=== PATIENT | female | born 1955 | race Caucasian/White ===

== ENCOUNTER 2016-04-05 23:23 | Emergency (ER) | payer OTHER ==
--- NOTE | 2016-04-06 00:57 | ED ---
Wound/Laceration HPI - General Chief Complaint: Wound/Laceration Stated Complaint: Foot Pain Time Seen by Provider: 04/06/16 00:19 Source: patient, RN notes reviewed Mode of arrival: ambulatory Limitations: no limitations - History of Present Illness Initial Comments: Patient is a 60-year-old female since emergency room for evaluation of left foot swelling. Patient states that her son was putting lotion on her feet and noticed some swelling on the lateral portion of her left foot. Patient states she has a history diabetes. Patient states she's had a history of many infections. Patient states she wanted this evaluated just in case. Patient denies any pain. Patient states she is diabetic neuropathy and does not feel any of her feet. Patient denies stepping on anything or injuring her foot. Patient denies any drainage from the area. Patient has any fevers or chills. Patient denies headache or dizziness. Patient denies nausea or vomiting. - Related Data Home Medications Medication Instructions Recorded Confirmed Albuterol Inhaler [Ventolin Hfa 2 puff INHALATION RT-Q4H PRN 02/18/14 02/14/16 Inhaler] Cyclobenzaprine [Flexeril] 10 mg PO BID@1000,2100 02/18/14 02/14/16 Simvastatin [Zocor] 40 mg PO HS@2100 02/18/14 02/14/16 metFORMIN HCL [Glucophage] 850 mg PO BID@1000,2100 02/18/14 02/14/16 Insulin Glargine [Lantus] 100 unit SQ DAILY@1000 07/12/14 02/14/16 Cetirizine HCl 10 mg PO DAILY@1000 10/25/14 02/14/16 Ibuprofen [Motrin] 800 mg PO Q8HR@1000,1400,2100 PRN 10/25/14 02/14/16 HYDROcodone/APAP 10-325MG [[place] 1 tab PO Q8H PRN 06/18/15 02/14/16 10-325] INSULIN LISPRO (humaLOG) [humaLOG 25 unit SQ TID-W/MEALS 06/18/15 02/14/16 (formulary)] Pregabalin [Lyrica] 150 mg PO BID 06/19/15 02/14/16 Albuterol Sulfate 2.5 mg PO RT-TID 12/14/15 02/14/16 Aspirin [Aspirin EC] 81 mg PO DAILY 12/14/15 02/14/16 Insulin Glargine [Lantus] 70 unit SQ HS 12/14/15 02/14/16 Latanoprost Ophth [Xalatan 0.005%] 1 drop BOTH EYES HS 12/14/15 02/14/16 Levothyroxine Sodium 75 mcg PO DAILY 12/14/15 02/14/16 Previous Rx's Medication Instructions Recorded Meclizine [Antivert] 25 mg PO TID #20 tab 12/22/15 Mupirocin 2% Oint [Bactroban 2% 1 applic TOPICAL TID 10 Days 04/06/16 Oint] Allergies Allergy/AdvReac Type Severity Reaction Status Date / Time Penicillins Allergy Anaphylaxis Verified 04/05/16 23:31 Review of Systems ROS Statement: Those systems with pertinent positive or pertinent negative responses have been documented in the HPI. ROS Other: All systems not noted in ROS Statement are negative. Past Medical History Past Medical History: Asthma, Cancer, COPD, Diabetes Mellitus, Hyperlipidemia, Osteoarthritis (OA), Sleep Apnea/CPAP/BIPAP Additional Past Medical History / Comment(s): Diabetic neuropathy, retinopathy. glaucoma,cevical cancer, sciatica. History of osteomyelitis with amputation of the third left toe and part of left calf: 2004. History of Any Multi-Drug Resistant Organisms: None Reported Past Surgical History: Section, Cholecystectomy, Hysterectomy, Tonsillectomy, Tubal Ligation Additional Past Surgical History / Comment(s): cataracts and laser surgery for glaucoma. Multiple I&D to wounds to the left foot and lower leg. Amputation of the third toe left. Past Anesthesia/Blood Transfusion Reactions: No Reported Reaction Past Psychological History: Bipolar, Depression Additional Psychological History / Comment(s): Borderline personality Smoking Status: Former smoker Past Alcohol Use History: None Reported Additional Past Alcohol Use History / Comment(s): Patient was a smoker of 2 packs per day for 21 years and quit in 1992. She does use marijuana on occasional basis. She denies any medical marijuana card. She denies any alcohol use or abuse. She is currently living at home and one adult son is living with her. She has been on disability. She is mostly wheelchair bound Past Drug Use History: Marijuana - Past Family History Father Family Medical History: Congestive Heart Failure (CHF), Coronary Artery Disease (CAD), Myocardial Infarction ([place]) Mother Family Medical History: Coronary Artery Disease (CAD), CVA/TIA, Dementia, Myocardial Infarction ([place]) General Exam - General Exam Comments Initial Comments: Sitting in exam room in no acute distress. Limitations: no limitations General appearance: alert, in no apparent distress Head exam: Present: atraumatic, normocephalic, normal inspection Eye exam: Present: normal appearance ENT exam: Present: normal exam Neck exam: Present: normal inspection Respiratory exam: Present: normal lung sounds bilaterally. Absent: respiratory distress Cardiovascular Exam: Present: regular rate, normal rhythm, normal heart sounds Left Foot/Toe exam: Present: full ROM. Absent: normal inspection (Small 1 cm swelling with tiny superficial liner abrasion on the lateral portion of the foot.), tenderness Neurovascular tendon exam: Absent: pulse deficit (2+ dorsal pedal and posterior tibial pulses), abnormal cap refill (Capillary refill less than 2 seconds) Back exam: Present: normal inspection Neurological exam: Present: alert, oriented X3, CN II-XII intact Psychiatric exam: Present: normal affect, normal mood Skin exam: Present: warm, dry Course Vital Signs 04/05/16 04/06/16 23:27 01:51 Temperature 97.0 F L 98.0 F Pulse Rate 94 78 Respiratory 18 16 Rate Blood Pressure 135/63 128/72 O2 Sat by Pulse 96 97 Oximetry Medical Decision Making - Medical Decision Making Patient is a 60-year-old female with a history of diabetes, presents to the emergency room for evaluation of abrasion over left foot. There was a slight amount of swelling near the abrasion area. Area was covered with Betadine and an 18-gauge was inserted. No purulent drainage noted. No significant erythema noted. Patient was placed on mupirocin ointment and advised to follow-up with primary care provider tomorrow. Patient states she understands everything that was discussed with her. Return parameters discussed. Case discussed with Dr. Shankar. Disposition Clinical Impression: Abrasion of left foot Disposition: HOME SELF-CARE Condition: Good Instructions: Abrasion (ED) Additional Instructions: Clean with antibacterial soap and water 3 times a day, apply ointment as directed. Please follow up with primary care provider in 24-48 hours for reevaluation. If any new symptom arises, symptoms worsen or fever develops, return to ER as soon as possible. Prescriptions: Mupirocin 2% Oint [Bactroban 2% Oint] 1 applic TOPICAL TID 10 Days Referrals: Lilibeth Seymour MD [Primary Care Provider] - 1-2 days Time of Disposition: 00:55
[2016-04-06] MEDS ORDERED: DIPH,PERTUS(ACELL)TETVAC-LF 0.5 ML VIAL IM ONE (01:01)
[2016-04-06 01:52] VITALS: BP 128/72; PULSE 78; RESP 16; TEMP 98
== END 2016-04-06 01:50 | disposition home or self-care (01) ==
LOC: EC 23:23
DX: S90.812A Abrasion, left foot, initial encounter (principal); E11.40 Type 2 diabetes mellitus with diabetic neuropathy, unspecified; E11.319 Type 2 diabetes mellitus with unspecified diabetic retinopathy without macular edema; E11.69 Type 2 diabetes mellitus with other specified complication; M86.9 Osteomyelitis, unspecified; E78.5 Hyperlipidemia, unspecified; H40.9 Unspecified glaucoma; G47.30 Sleep apnea, unspecified; F12.90 Cannabis use, unspecified, uncomplicated; X58.XXXA Exposure to other specified factors, initial encounter; Z23 Encounter for immunization; Z79.4 Long term (current) use of insulin; Z79.84 Long term (current) use of oral hypoglycemic drugs; Z79.899 Other long term (current) drug therapy; Z79.82 Long term (current) use of aspirin; Z88.0 Allergy status to penicillin; Z89.422 Acquired absence of other left toe(s); Z87.891 Personal history of nicotine dependence
CPT/HCPCS: 90471; 90715; 99282

== ENCOUNTER 2016-04-23 02:33 | Emergency (ER) | payer OTHER ==
--- NOTE | 2016-04-23 04:03 | ED ---
Skin/Abscess/FB HPI - General Chief complaint: Skin/Abscess/Foreign Body Stated complaint: Re-opened wound on heel of foot Time Seen by Provider: 04/23/16 03:48 Source: patient Mode of arrival: wheelchair Limitations: no limitations - History of Present Illness Initial comments: This patient is a 60-year-old woman with history of diabetes who presents to have her foot evaluated. She had been treated for a foot ulcer but states that he had not fully gone away and it may be getting a little worse now. Patient denies fever or chills. MD complaint: other (Foot ulcer) -: week(s) Tetanus Up to Date: yes Location: R foot Severity: mild Quality: dull Consistency: constant Improves with: none Worsens with: none Context: none Associated symptoms: denies other symptoms - Related Data Home Medications Medication Instructions Recorded Confirmed Albuterol Inhaler [Ventolin Hfa 1 puff INHALATION RT-QID PRN 02/18/14 07/20/16 Inhaler] Cyclobenzaprine [Flexeril] 10 mg PO BID@1000,209902/18/14 07/20/16 Simvastatin [Zocor] 40 mg PO HS@209902/18/14 07/20/16 metFORMIN HCL [Glucophage] 850 mg PO BID@1000,209902/18/14 07/20/16 Insulin Glargine [Lantus] 100 unit SQ DAILY@1000 07/12/14 07/20/16 Cetirizine HCl 10 mg PO DAILY@1000 10/25/14 07/20/16 HYDROcodone/APAP 10-325MG [[employer] 1 tab PO Q8H PRN 06/18/15 07/20/16 10-325] INSULIN LISPRO (humaLOG) [humaLOG 30 unit SQ TID-W/MEALS 06/18/15 07/20/16 (formulary)] Pregabalin [Lyrica] 150 mg PO BID 06/19/15 07/20/16 Albuterol Sulfate 2.5 mg INHALATION RT-QID 12/14/15 07/20/16 Insulin Glargine [Lantus] 80 unit SQ HS 12/14/15 07/20/16 Latanoprost Ophth [Xalatan 0.005%] 1 drop BOTH EYES HS 09/13/16 04/20/17 Levothyroxine Sodium 75 mcg PO DAILY 12/14/15 07/20/16 Aspirin EC [Ecotrin Low Dose] 81 mg PO DAILY 06/01/16 07/20/16 Nystatin 100,000 Unit/gm Powd 1 applic TOPICAL BID 06/01/16 07/20/16 [Mycostatin Powder] Ciprofloxacin Ophth Soln [Ciloxan 1 drop RIGHT EYE QID 07/13/16 07/20/16 0.3% Ophth Soln] Previous Rx's Medication Instructions Recorded Cephalexin [Keflex] 500 mg PO Q6HR #40 cap 07/02/16 Allergies Allergy/AdvReac Type Severity Reaction Status Date / Time Penicillins Allergy Anaphylaxis Verified 07/20/16 15:39 Review of Systems ROS Statement: Those systems with pertinent positive or pertinent negative responses have been documented in the HPI. ROS Other: All systems not noted in ROS Statement are negative. Constitutional: Denies: fever, chills, weakness Respiratory: Denies: cough, dyspnea Cardiovascular: Denies: chest pain, syncope Musculoskeletal: Denies: joint swelling, arthralgia Skin: Reports: as per HPI Neurological: Denies: weakness, numbness Past Medical History Past Medical History: Asthma, Cancer, COPD, Diabetes Mellitus, Hyperlipidemia, Osteoarthritis (OA), Sleep Apnea/CPAP/BIPAP Additional Past Medical History / Comment(s): Diabetic neuropathy, retinopathy. glaucoma,cevical cancer, sciatica. History of osteomyelitis with amputation of the third left toe and part of left calf: 2004. History of Any Multi-Drug Resistant Organisms: None Reported Past Surgical History: Section, Cholecystectomy, Hysterectomy, Tonsillectomy, Tubal Ligation Additional Past Surgical History / Comment(s): cataracts and laser surgery for glaucoma. Multiple I&D to wounds to the left foot and lower leg. Amputation of the third toe left. Past Anesthesia/Blood Transfusion Reactions: No Reported Reaction Past Psychological History: Bipolar, Depression Additional Psychological History / Comment(s): Borderline personality Smoking Status: Former smoker Past Alcohol Use History: None Reported Additional Past Alcohol Use History / Comment(s): Patient was a smoker of 2 packs per day for 21 years and quit in 1992. She does use marijuana on occasional basis. She denies any medical marijuana card. She denies any alcohol use or abuse. She is currently living at home and one adult son is living with her. She has been on disability. She is mostly wheelchair bound Past Drug Use History: Marijuana - Past Family History Father Family Medical History: Congestive Heart Failure (CHF), Coronary Artery Disease (CAD), Myocardial Infarction ([place]) Mother Family Medical History: Coronary Artery Disease (CAD), CVA/TIA, Dementia, Myocardial Infarction ([place]) General Exam Limitations: no limitations General appearance: alert, in no apparent distress, obese Cardiovascular Exam: Present: normal rhythm, normal heart sounds. Absent: tachycardia, systolic murmur, diastolic murmur, rubs, gallop Extremities exam: Present: normal capillary refill, other (The patient does have a fissure to the skin of the area of the heel. There is also what appears to be a recently unroofed vesicle on the side of the foot. There is a little bit of clear drainage, no purulent drainage. No abnormal erythema or warmth. No evidence of abscess. There is no bony tenderness or deformity of the foot). Absent: pedal edema, calf tenderness Skin exam: Present: warm, dry, normal color, vesicles. Absent: intact, rash, erythema Course Vital Signs 04/23/16 04/23/16 02:56 04:13 Temperature 98.2 F 98 F Pulse Rate 85 89 Respiratory 20 18 Rate Blood Pressure 144/74 143/67 O2 Sat by Pulse 97 97 Oximetry Medical Decision Making - Medical Decision Making Patient is a 60-year-old woman with history of diabetes who does have an ulceration of the foot there is also a fissure of the heel. There does not appear at this point to be infection, but given the patient's history of diabetes will provide course of antibiotics and close follow-up. Return parameters discussed. Disposition Clinical Impression: Fissure in skin of foot, Foot ulcer Disposition: HOME SELF-CARE Condition: Fair Instructions: Diabetic Foot Ulcers (ED) Referrals: Lilibeth Seymour MD [Primary Care Provider] - 1-2 days Paivthra Molina DPM [REFERRING] - 1-2 days
[2016-04-23 04:14] VITALS: BP 143/67; PULSE 89; RESP 18; TEMP 98
== END 2016-04-23 04:14 | disposition home or self-care (01) ==
LOC: EC 02:33
DX: L97.509 Non-pressure chronic ulcer of other part of unspecified foot with unspecified severity (principal); R23.4 Changes in skin texture; E11.40 Type 2 diabetes mellitus with diabetic neuropathy, unspecified; E11.319 Type 2 diabetes mellitus with unspecified diabetic retinopathy without macular edema; J44.9 Chronic obstructive pulmonary disease, unspecified; J45.909 Unspecified asthma, uncomplicated; E78.5 Hyperlipidemia, unspecified; Z79.82 Long term (current) use of aspirin; Z79.4 Long term (current) use of insulin; Z79.899 Other long term (current) drug therapy; Z88.0 Allergy status to penicillin; G47.30 Sleep apnea, unspecified; H40.9 Unspecified glaucoma; Z86.19 Personal history of other infectious and parasitic diseases; Z89.422 Acquired absence of other left toe(s); Z87.891 Personal history of nicotine dependence; Z99.3 Dependence on wheelchair; F32.9 Major depressive disorder, single episode, unspecified
CPT/HCPCS: 99282

== ENCOUNTER 2016-05-11 03:30 | Emergency (ER) | payer OTHER ==
[2016-05-11 03:42] VITALS: TEMP 98.6
[2016-05-11] MEDS ORDERED: SODIUM CHLORIDE 0.9% 500 ML IV STA (04:09)
--- NOTE | 2016-05-11 04:46 | ED ---
Nausea/Vomiting/Diarrhea HPI - General Chief complaint: Nausea/Vomiting/Diarrhea Stated complaint: Diarrhea Time Seen by Provider: 05/11/16 03:56 Source: patient, RN notes reviewed Mode of arrival: wheelchair Limitations: no limitations - History of Present Illness Initial comments: This patient is a 60-year-old woman who presents to be evaluated for having a number of watery stools per day. Patient states that she is taking clindamycin since last week for foot infection. She was instructed to come to the emergency department if she starts having diarrhea. She states she had soft bowel movements on Sunday and Sunday then started having watery bowel movements Sunday and Sunday. She has not noted any blood. Patient states that she is starting to feel like she may be getting dehydrated because her mouth is always dry. Patient denies chest pain, palpitations, lightheadedness. No change in urination. No vomiting. She does have a little bit of diffuse abdominal cramping just before having a bowel movement but then resolves. MD complaint: diarrhea Onset/Timin -: days(s) Description of Diarrhea: water Associated Abdominal Pain: Yes (There is some mild diffuse cramping which comes on just before bowel moveme) Severity: mild Quality: cramping Consistency: intermittent, now resolved Improves with: bowel movement Worsens with: none Context: recent antibiotic use - Related Data Home Medications Medication Instructions Recorded Confirmed Albuterol Inhaler [Ventolin Hfa 2 puff INHALATION RT-Q4H PRN 02/18/14 05/11/16 Inhaler] Cyclobenzaprine [Flexeril] 10 mg PO BID@1000,209902/18/14 05/11/16 Simvastatin [Zocor] 40 mg PO HS@209902/18/14 05/11/16 metFORMIN HCL [Glucophage] 850 mg PO BID@1000,209902/18/14 05/11/16 Insulin Glargine [Lantus] 100 unit SQ DAILY@1000 07/12/14 05/11/16 Cetirizine HCl 10 mg PO DAILY@1000 10/25/14 05/11/16 Ibuprofen [Motrin] 800 mg PO Q8HR@1000,1400,2100 PRN 10/25/14 05/11/16 HYDROcodone/APAP 10-325MG [Max 1 tab PO Q8H PRN 06/18/15 05/11/16 10-325] INSULIN LISPRO (humaLOG) [humaLOG 25 unit SQ TID-W/MEALS 06/18/15 05/11/16 (formulary)] Pregabalin [Lyrica] 150 mg PO BID 06/19/15 05/11/16 Albuterol Sulfate 2.5 mg INHALATION TID 12/14/15 05/11/16 Insulin Glargine [Lantus] 70 unit SQ HS 12/14/15 05/11/16 Latanoprost Ophth [Xalatan 0.005%] 1 drop BOTH EYES HS 12/14/15 05/11/16 Levothyroxine Sodium 75 mcg PO DAILY 12/14/15 05/11/16 Amino Acids/Protein Hydrolys 300 ml PO BID 05/04/16 05/11/16 [Pro-Stat Supplement] Clindamycin [Cleocin] 300 mg PO Q8HR 05/04/16 05/11/16 Previous Rx's Medication Instructions Recorded Meclizine [Antivert] 25 mg PO TID #20 tab 12/22/15 Mupirocin 2% Oint [Bactroban 2% 1 applic TOPICAL TID 10 Days 04/06/16 Oint] Allergies Allergy/AdvReac Type Severity Reaction Status Date / Time Penicillins Allergy Anaphylaxis Verified 05/04/16 10:03 Review of Systems ROS Statement: Those systems with pertinent positive or pertinent negative responses have been documented in the HPI. ROS Other: All systems not noted in ROS Statement are negative. Constitutional: Denies: fever, chills Respiratory: Denies: cough, dyspnea Cardiovascular: Denies: chest pain, palpitations Gastrointestinal: Reports: diarrhea. Denies: abdominal pain, vomiting, melena, hematochezia Genitourinary: Denies: dysuria Musculoskeletal: Denies: back pain Skin: Denies: rash Neurological: Denies: headache, weakness, numbness Past Medical History Past Medical History: Asthma, Cancer, COPD, Diabetes Mellitus, Eye Disorder, Hyperlipidemia, Musculoskeletal Disorder, Neurologic Disorder, Osteoarthritis ( OA), Sleep Apnea/CPAP/BIPAP, Thyroid Disorder Additional Past Medical History / Comment(s): History of osteomyelitis left #3 toe and left calf: 2004. History of Any Multi-Drug Resistant Organisms: None Reported Past Surgical History: Section, Cholecystectomy, Hysterectomy, Orthopedic Surgery, Tonsillectomy, Tubal Ligation Additional Past Surgical History / Comment(s): cataracts and laser surgery for glaucoma. Multiple I&D to left foot and lower leg. Past Anesthesia/Blood Transfusion Reactions: No Reported Reaction Past Psychological History: Bipolar, Depression Additional Psychological History / Comment(s): Borderline personality Smoking Status: Former smoker Past Alcohol Use History: None Reported Additional Past Alcohol Use History / Comment(s): Patient was a smoker of 2 packs per day for 21 years and quit in 1992. She does use marijuana on occasional basis. She denies any medical marijuana card. She denies any alcohol use or abuse. She is currently living at home and one adult son is living with her. She has been on disability. She is mostly wheelchair bound Past Drug Use History: Marijuana - Past Family History Father Family Medical History: Congestive Heart Failure (CHF), Coronary Artery Disease (CAD), Myocardial Infarction ([place]) Mother Family Medical History: Coronary Artery Disease (CAD), CVA/TIA, Dementia, Myocardial Infarction ([place]) General Exam Limitations: no limitations General appearance: alert, in no apparent distress, obese Head exam: Present: atraumatic, normocephalic Respiratory exam: Present: normal lung sounds bilaterally. Absent: respiratory distress, wheezes, rales, rhonchi, stridor Cardiovascular Exam: Present: regular rate, normal rhythm, normal heart sounds. Absent: systolic murmur, diastolic murmur, rubs, gallop GI/Abdominal exam: Present: soft. Absent: distended, tenderness, guarding, rebound Extremities exam: Present: normal capillary refill. Absent: pedal edema, calf tenderness Back exam: Absent: CVA tenderness (R), CVA tenderness (L) Neurological exam: Present: alert Skin exam: Present: warm, dry, intact, normal color. Absent: rash Course Vital Signs 05/11/16 05/11/16 03:38 05:36 Temperature 98.6 F Pulse Rate 85 78 Respiratory 18 16 Rate Blood Pressure 189/85 160/70 O2 Sat by Pulse 98 98 Oximetry Medical Decision Making - Medical Decision Making Patient not able to provide specimen here. Will follow with her physician. Discussed return parameters. - Lab Data Result diagrams: 05/11/16 04:37 05/11/16 04:37 Lab Results 02/09/17 02/09/17 Range/Units 04:37 04:37 WBC 9.1 (3.8-10.6) k/uL RBC 4.49 (3.80-5.40) m/uL Hgb 12.8 (11.4-16.0) gm/dL Hct 38.8 (34.0-46.0) % MCV 86.5 (80.0-100.0) fL MCH 28.5 (25.0-35.0) pg MCHC 33.0 (31.0-37.0) g/dL RDW 16.1 H (11.5-15.5) % Plt Count 89 L (150-450) k/uL Neutrophils % (Manual) 73.0 % Band Neutrophils % 5.0 % Lymphocytes % (Manual) 19.0 % Monocytes % (Manual) 1.0 % Eosinophils % (Manual) 2.0 % Neutrophils # (Manual) 7.1 (1.3-7.7) k/uL Lymphocytes # (Manual) 1.7 (1.0-4.8) k/uL Monocytes # (Manual) 0.1 (0-1.0) k/uL Eosinophils # (Manual) 0.2 (0-0.7) k/uL Nucleated RBCs 0 (0-0) /100 WBC Manual Slide Review Performed Poikilocytosis Slight Anisocytosis Slight Sodium 143 (137-145) mmol/L Potassium 4.0 (3.5-5.1) mmol/L Chloride 106 (98-107) mmol/L Carbon Dioxide 24 (22-30) mmol/L Anion Gap 13 mmol/L BUN 21 H (7-17) mg/dL Creatinine 0.70 (0.52-1.04) mg/dL Est GFR (MDRD) Af Amer >60 (>60 ml/min/1.73 sqM) Est GFR (MDRD) Non-Af >60 (>60 ml/min/1.73 sqM) Glucose 187 H (74-99) mg/dL Calcium 9.1 (8.4-10.2) mg/dL Disposition Clinical Impression: Diarrhea Disposition: HOME SELF-CARE Condition: Good Instructions: Acute Diarrhea (ED) Referrals: Lilibeth Syemour MD [Primary Care Provider] - 1-2 days
[2016-05-11 04:49] LABS: Anisocytosis Slight; CH 29.1; HCT 38.8 % (34.0-46.0); HDW 3.71; HGB 12.8 gm/dL (11.4-16.0); MCH 28.5 pg (25.0-35.0); MCV 86.5 fL (80.0-100.0); Mean Platelet Volume 8.7; Poikilocytosis Slight; RBC 4.49 m/uL (3.80-5.40); RDW 16.1 % (11.5-15.5); WBC 9.1 k/uL (3.8-10.6); WBC (Perox) 9.07
[2016-05-11 04:58] LABS: Anion Gap 13 mmol/L; Blood Urea Nitrogen 21 mg/dL (7-17); Calcium 9.1 mg/dL (8.4-10.2); Carbon Dioxide 24 mmol/L (22-30); Chloride 106 mmol/L (98-107); Glucose 187 mg/dL (74-99); Non-African American GFR(MDRD) >60 (>60 ml/min/1.73 sqM); Sodium 143 mmol/L (137-145)
[2016-05-11 05:23] LABS: Add Differential Manual Differential
[2016-05-11 05:26] LABS: Manual Review Performed; Nucleated Red Blood Cells 0 /100 WBC (0-0); Total Cells Counted 100
[2016-05-11 05:37] VITALS: BP 160/70; PULSE 78; RESP 16
== END 2016-05-11 05:44 | disposition home or self-care (01) ==
LOC: EC 03:30
DX: R19.7 Diarrhea, unspecified (principal); R10.84 Generalized abdominal pain; J44.9 Chronic obstructive pulmonary disease, unspecified; J45.909 Unspecified asthma, uncomplicated; E11.9 Type 2 diabetes mellitus without complications; E07.9 Disorder of thyroid, unspecified; E78.5 Hyperlipidemia, unspecified; M19.90 Unspecified osteoarthritis, unspecified site; G58.9 Mononeuropathy, unspecified; H57.9 Unspecified disorder of eye and adnexa; Z87.891 Personal history of nicotine dependence; Z79.4 Long term (current) use of insulin; Z79.52 Long term (current) use of systemic steroids; Z79.899 Other long term (current) drug therapy; Z88.0 Allergy status to penicillin; Z90.49 Acquired absence of other specified parts of digestive tract; Z90.710 Acquired absence of both cervix and uterus
CPT/HCPCS: 36415; 80048; 85025; 96360; 99284

== ENCOUNTER → 2016-05-19 | Outpatient (CLI) | payer OTHER ==
--- NOTE | 2016-05-19 13:25 | MR ---
EXAMINATION TYPE: MR foot LT wo/w con DATE OF EXAM: 05/19/2016 1:12 PM COMPARISON: Limited left foot x-ray April 27, 2016 HISTORY: osteomyelitis left foot per order. Diabetic foot ulcers lateral left foot fifth metatarsal l evel CONTRAST: Standard multiplanar, multisequence MRI departmental protocol utilizing 20 mL intravenous MultiHance gadolinium contrast. FINDINGS: Soft tissue ulcer not well seen along lateral aspect of left mid to forefoot. There is smal l area of edema along plantar lateral base of fifth metatarsal. Additional area of edema laterally at metatarsophalangeal junction extending along plantar surface is noted. There is some loss of fat sat uration on the coronal images making evaluation suboptimal. There is no convincing evidence of abnorm al edema or enhancement at this level or in remainder of the left foot. Amputation defect of left thi rd toe is noted. Flexion contraction of the phalanges is seen making evaluation of this level subopti mal including the distal fifth toe. IMPRESSION: No convincing MRI evidence for acute osteomyelitis in the left foot.
== END | disposition home or self-care (01) ==
LOC: RADMRIMAIN 11:23
PROVIDERS: ATTEND Family Medicine
DX: M86.8X7 Other osteomyelitis, ankle and foot (principal); E11.621 Type 2 diabetes mellitus with foot ulcer; L97.529 Non-pressure chronic ulcer of other part of left foot with unspecified severity
CPT/HCPCS: 73720; A9577

== ENCOUNTER → 2016-05-26 | Outpatient (CLI) | payer OTHER ==
--- NOTE | 2016-05-26 15:32 | US ---
LOWER EXTREMITY VENOUS INSUFFICIENCY SIDE PERFORMED: bilateral 1) Color flow is present and patency is documented in the following vessels. No DVT or SVT is noted . ? EIV ? Common Femoral Vein ? Deep Femoral Vein ? Femoral Vein ? Popliteal Vein ? Proximal Calf Veins ? Greater Saph Vein ? Upper Small Saph Vein IMPRESSION: 2) There is venous reflux noted at the following venous levels: right EIV, right greater saph vn, l eft EIV, left greater saph vn, left CFV
--- NOTE | 2016-05-31 10:59 | P.ARTDOP ---
Arterial Doppler LOWER EXTREMITY ARTERIAL DOPPLER: DATE OF SERVICE: 05/26/2016 Reason for study: Pain and ulcer left leg. Doppler waveforms: Multiphasic bilaterally throughout. Pulse volume recording: Normal configuration. Pressure gradients: None. Ankle-brachial indices: Greater than 1 bilaterally. Toe pressures: 126 on the right, 127 on the left Impression: Normal study.
== END | disposition home or self-care (01) ==
LOC: RADUSWWP 13:57
PROVIDERS: ATTEND Family Medicine
DX: I87.2 Venous insufficiency (chronic) (peripheral) (principal); E11.621 Type 2 diabetes mellitus with foot ulcer
CPT/HCPCS: 93923; 93970

== ENCOUNTER 2016-06-01 00:27 | Observation (INO) | payer OTHER ==
[2016-06-01] MEDS ORDERED: ACETAMINOPHEN IV (For NPO) 1,000 MG in EMPTY BAG 1 BAG IVPB ONE ×2 (00:36→09:45)
[2016-06-01] MEDS ORDERED: SODIUM CHLORIDE 0.9% 1,000 ML IV STA (00:36)
[2016-06-01 00:59] LABS: Appearance,Urine Clear (Clear); Bilirubin,Urine Negative (Negative); Glucose,Urine (UA) Negative (Negative); Ketones,Urine Negative (Negative); Leukocyte Esterase,Urine Negative (Negative); Mucus,Urine Rare /hpf; Nitrite,Urine Negative (Negative); PH, Urine 5.5 (5.0-8.0); Particle Count 2771; Protein,Urine Negative (Negative); RBC,Urine 3 /hpf (0-5); Specific Gravity,Urine 1.019 (1.001-1.035); Squamous Epithelial Cell,Urine 2 /hpf (0-4); UA Billing (MACRO vs. MICRO) MICRO; WBC,Urine 1 /hpf (0-5)
--- NOTE | 2016-06-01 00:59 | ED ---
General Adult HPI - General Source: patient, EMS, RN notes reviewed Mode of arrival: EMS Limitations: no limitations <Heide Garcia - Last Filed: 06/01/16 03:15> <Cristian Kinsey - Last Filed: 06/01/16 07:40> - General Chief complaint: Weakness Stated complaint: nausea,weakness Time Seen by Provider: 06/01/16 00:30 - History of Present Illness Initial comments: 60-year-old female presents to the emergency department with a chief complaint of diarrhea and weakness. Patient states that she has been holding getting weaker over the last few days. Patient states she has had several episodes of diarrhea as well. Patient states she has not been eating and drinking well due to her illness. Patient states that she was concerned she just does not seem to be getting better. Patient states that she just feels very weak and she is very tired. Patient states everything is achy and sore. Patient states that she does have a history of a protein deficiency which causes problems with healing and they're currently trying to heal her left foot wound. She states that she was concerned due to her continued symptoms that she thought that she should be evaluated. Patient denies any recent fever, chills, shortness of breath, chest pain, back pain, abdominal pain, nausea vomiting, numbness or tingling, dysuria or hematuria, constipation, headaches or visual changes, or any other current symptoms. (Heide Garcia) - Related Data Home Medications Medication Instructions Recorded Confirmed Albuterol Inhaler [Ventolin Hfa 2 puff INHALATION RT-Q4H PRN 02/18/14 06/01/16 Inhaler] Cyclobenzaprine [Flexeril] 10 mg PO BID@1000,209902/18/14 06/01/16 Simvastatin [Zocor] 40 mg PO HS@209902/18/14 06/01/16 metFORMIN HCL [Glucophage] 850 mg PO BID@1000,209902/18/14 06/01/16 Insulin Glargine [Lantus] 100 unit SQ DAILY@1000 07/12/14 06/01/16 Cetirizine HCl 10 mg PO DAILY@1000 10/25/14 06/01/16 Ibuprofen [Motrin] 800 mg PO Q8HR@1000,1400,2099 PRN 10/25/14 06/01/16 HYDROcodone/APAP 10-325MG [[place] 1 tab PO Q8H PRN 06/18/15 06/01/16 10-325] INSULIN LISPRO (humaLOG) [humaLOG 25 unit SQ TID-W/MEALS 06/18/15 06/01/16 (formulary)] Pregabalin [Lyrica] 150 mg PO BID 06/19/15 06/01/16 Albuterol Sulfate 2.5 mg INHALATION TID 12/14/15 06/01/16 Insulin Glargine [Lantus] 70 unit SQ HS 12/14/15 06/01/16 Latanoprost Ophth [Xalatan 0.005%] 1 drop BOTH EYES HS 12/14/15 06/01/16 Levothyroxine Sodium 75 mcg PO DAILY 12/14/15 06/01/16 Amino Acids/Protein Hydrolys 300 ml PO BID 05/04/16 06/01/16 [Pro-Stat Supplement] Mupirocin 2% Oint [Bactroban 2% 1 applic TOPICAL DIRECTED 06/01/16 06/01/16 Oint] Previous Rx's Medication Instructions Recorded Meclizine [Antivert] 25 mg PO TID #20 tab 12/22/15 Allergies Allergy/AdvReac Type Severity Reaction Status Date / Time Penicillins Allergy Anaphylaxis Verified 06/01/16 03:52 Review of Systems ROS Other: All systems not noted in ROS Statement are negative. <Heide Garcia - Last Filed: 06/01/16 03:15> ROS Other: All systems not noted in ROS Statement are negative. <Cristian Kinsey - Last Filed: 06/01/16 07:40> ROS Statement: Those systems with pertinent positive or pertinent negative responses have been documented in the HPI. Past Medical History Past Medical History: Asthma, Cancer, COPD, Diabetes Mellitus, Eye Disorder, Hyperlipidemia, Musculoskeletal Disorder, Neurologic Disorder, Osteoarthritis ( OA), Sleep Apnea/CPAP/BIPAP, Thyroid Disorder Additional Past Medical History / Comment(s): History of osteomyelitis left #3 toe and left calf: 2004. History of Any Multi-Drug Resistant Organisms: None Reported Past Surgical History: Section, Cholecystectomy, Hysterectomy, Orthopedic Surgery, Tonsillectomy, Tubal Ligation Additional Past Surgical History / Comment(s): cataracts and laser surgery for glaucoma. Multiple I&D to left foot and lower leg. Past Anesthesia/Blood Transfusion Reactions: No Reported Reaction Past Psychological History: Bipolar, Depression Additional Psychological History / Comment(s): Borderline personality Smoking Status: Former smoker Past Alcohol Use History: None Reported Additional Past Alcohol Use History / Comment(s): Patient was a smoker of 2 packs per day for 21 years and quit in 1992. She does use marijuana on occasional basis. She denies any medical marijuana card. She denies any alcohol use or abuse. She is currently living at home and one adult son is living with her. She has been on disability. She is mostly wheelchair bound Past Drug Use History: Marijuana - Past Family History Father Family Medical History: Congestive Heart Failure (CHF), Coronary Artery Disease (CAD), Myocardial Infarction ([place]) Mother Family Medical History: Coronary Artery Disease (CAD), CVA/TIA, Dementia, Myocardial Infarction ([place]) <Heide Garcia - Last Filed: 06/01/16 03:15> General Exam Limitations: no limitations <Heide Garcia - Last Filed: 06/01/16 03:15> <Cristian Kinsey - Last Filed: 06/01/16 07:40> - General Exam Comments Initial Comments: General: The patient is awake and alert, in no distress, and does not appear acutely ill. Eye: Pupils are equal, round and reactive to light, extra-ocular movements are intact; there is normal conjunctiva bilaterally. No signs of icterus. Ears, nose, mouth and throat: There are moist mucous membranes and no oral lesions. Neck: The neck is supple, there is no tenderness. Cardiovascular: There is a regular rate and rhythm. No murmur, rub or gallop is appreciated. Respiratory: Lungs are clear to auscultation, respirations are non-labored, breath sounds are equal. No wheezes, stridor, rales, or rhonchi. Gastrointestinal: Soft, non-distended, non-tender abdomen without masses or organomegaly noted. There is no rebound or guarding present. No CVA tenderness. Bowel sounds are unremarkable. Back: There is no tenderness to palpation in the midline. There is no obvious deformity. No rashes noted. Musculoskeletal: Normal ROM, no tenderness, There is no pedal edema. There is no calf tenderness or swelling. Sensation intact. Pulses equal bilaterally 2+. Neurological: CN II-XII intact, There are no obvious motor or sensory deficits. Coordination appears grossly intact. Speech is normal. Skin: Skin is warm and dry and no rashes or lesions are noted. Psychiatric: Cooperative, appropriate mood & affect, normal judgment. (Heide Garcia) Medical Decision Making - Lab Data Result diagrams: 06/01/16 01:25 06/01/16 01:25 - Radiology Data Radiology results: report reviewed, image reviewed <Heide Garcia - Last Filed: 06/01/16 03:15> - Lab Data Result diagrams: 06/01/16 01:25 06/01/16 01:25 <Cristian Kinsey - Last Filed: 06/01/16 07:40> - Medical Decision Making 60-year-old female presents emergency department with a chief complaint of diarrhea and weakness. This time patient continues to have a low-grade fever we will add Motrin to the patient's medication. Patient also has an elevated lipase of greater than 1000. At this time patient's symptoms are most consistent with possible gastroenteritis however there is concern for pancreatitis as well. At this time we will admit the patient for hydration we will also give the patient medication for fever we will continue to monitor the patient. Patient is in agreement with the plan. Patient's admitting doctor was contacted. (Heide Garcia) I saw this patient in conjunction with the physician graduate research assistant. I performed independent history and physical exam. Agree with case management. (Cristian Kinsey) - Lab Data Lab Results 06/01/16 06/01/16 06/01/16 Range/Units 00:44 01:14 01:25 WBC (3.8-10.6) k/uL RBC (3.80-5.40) m/uL Hgb (11.4-16.0) gm/dL Hct (34.0-46.0) % MCV (80.0-100.0) fL MCH (25.0-35.0) pg MCHC (31.0-37.0) g/dL RDW (11.5-15.5) % Plt Count (150-450) k/uL Neutrophils % % Lymphocytes % % Monocytes % % Eosinophils % % Basophils % % Neutrophils # (1.3-7.7) k/uL Lymphocytes # (1.0-4.8) k/uL Monocytes # (0-1.0) k/uL Eosinophils # (0-0.7) k/uL Basophils # (0-0.2) k/uL Poikilocytosis PT (9.0-12.0) sec INR (<1.1) APTT (22.0-30.0) sec Sodium 144 (137-145) mmol/L Potassium 3.8 (3.5-5.1) mmol/L Chloride 106 (98-107) mmol/L Carbon Dioxide 29 (22-30) mmol/L Anion Gap 9 mmol/L BUN 16 (7-17) mg/dL Creatinine 0.70 (0.52-1.04) mg/dL Est GFR (MDRD) Af Amer >60 (>60 ml/min/1.73 sqM) Est GFR (MDRD) Non-Af >60 (>60 ml/min/1.73 sqM) Glucose 94 (74-99) mg/dL Calcium 9.1 (8.4-10.2) mg/dL Magnesium 1.6 (1.6-2.3) mg/dL Total Bilirubin 0.8 (0.2-1.3) mg/dL AST 49 H (14-36) U/L ALT 45 (9-52) U/L Alkaline Phosphatase 118 (38-126) U/L Total Creatine Kinase (30-135) U/L CK-MB (CK-2) (0.0-2.4) ng/mL CK-MB (CK-2) Rel Index Troponin I (0.000-0.034) ng/mL Total Protein 8.0 (6.3-8.2) g/dL Albumin 3.9 (3.5-5.0) g/dL Amylase 84 (30-110) U/L Lipase 1049 H (23-300) U/L Urine Color Yellow Urine Appearance Clear (Clear) Urine pH 5.5 (5.0-8.0) Ur Specific [place] 1.019 (1.001-1.035) Urine Protein Negative (Negative) Urine Glucose (UA) Negative (Negative) Urine Ketones Negative (Negative) Urine Blood Trace H (Negative) Urine Nitrate Negative (Negative) Urine Bilirubin Negative (Negative) Urine Urobilinogen 2.0 (<2.0) mg/dL Ur Leukocyte Esterase Negative (Negative) Urine RBC 3 (0-5) /hpf Urine WBC 1 (0-5) /hpf Ur Squamous Epith Cells 2 (0-4) /hpf Urine Mucus Rare H (None) /hpf Influenza Type A RNA Not Detected (Not Detectd) Influenza Type B (PCR) Not Detected (Not Detectd) 06/01/16 06/01/16 06/01/16 Range/Units 01:25 01:25 01:25 WBC 10.1 (3.8-10.6) k/uL RBC 4.82 (3.80-5.40) m/uL Hgb 13.7 (11.4-16.0) gm/dL Hct 42.1 (34.0-46.0) % MCV 87.4 (80.0-100.0) fL MCH 28.3 (25.0-35.0) pg MCHC 32.4 (31.0-37.0) g/dL RDW 15.9 H (11.5-15.5) % Plt Count 119 L (150-450) k/uL Neutrophils % 82 % Lymphocytes % 10 % Monocytes % 4 % Eosinophils % 3 % Basophils % 0 % Neutrophils # 8.2 H (1.3-7.7) k/uL Lymphocytes # 1.0 (1.0-4.8) k/uL Monocytes # 0.4 (0-1.0) k/uL Eosinophils # 0.3 (0-0.7) k/uL Basophils # 0.0 (0-0.2) k/uL Poikilocytosis Slight PT 12.3 H (9.0-12.0) sec INR 1.2 (<1.1) APTT 25.6 (22.0-30.0) sec Sodium (137-145) mmol/L Potassium (3.5-5.1) mmol/L Chloride (98-107) mmol/L Carbon Dioxide (22-30) mmol/L Anion Gap mmol/L BUN (7-17) mg/dL Creatinine (0.52-1.04) mg/dL Est GFR (MDRD) Af Amer (>60 ml/min/1.73 sqM) Est GFR (MDRD) Non-Af (>60 ml/min/1.73 sqM) Glucose (74-99) mg/dL Calcium (8.4-10.2) mg/dL Magnesium (1.6-2.3) mg/dL Total Bilirubin (0.2-1.3) mg/dL AST (14-36) U/L ALT (9-52) U/L Alkaline Phosphatase (38-126) U/L Total Creatine Kinase 58 (30-135) U/L CK-MB (CK-2) 0.7 (0.0-2.4) ng/mL CK-MB (CK-2) Rel Index 1.2 Troponin I <0.012 (0.000-0.034) ng/mL Total Protein (6.3-8.2) g/dL Albumin (3.5-5.0) g/dL Amylase (30-110) U/L Lipase (23-300) U/L Urine Color Urine Appearance (Clear) Urine pH (5.0-8.0) Ur Specific [place] (1.001-1.035) Urine Protein (Negative) Urine Glucose (UA) (Negative) Urine Ketones (Negative) Urine Blood (Negative) Urine Nitrate (Negative) Urine Bilirubin (Negative) Urine Urobilinogen (<2.0) mg/dL Ur Leukocyte Esterase (Negative) Urine RBC (0-5) /hpf Urine WBC (0-5) /hpf Ur Squamous Epith Cells (0-4) /hpf Urine Mucus (None) /hpf Influenza Type A RNA (Not Detectd) Influenza Type B (PCR) (Not Detectd) Disposition Time of Disposition: 02:51 Decision Date: 06/01/16 Decision Time: 02:51 <Heide Garcia - Last Filed: 06/01/16 03:15> <Cristian Kinsey - Last Filed: 06/01/16 07:40> Clinical Impression: Fever, Gastroenteritis, Acute pancreatitis, Lightheadedness Disposition: ADMITTED IP TO THIS [facility] Condition: Stable
[2016-06-01 01:33] LABS: Basophils % (A) 0 %; CH 29.2; CHCM 33.6; Eosinophils # (A) 0.3 k/uL (0-0.7); Eosinophils % (A) 3 %; HCT 42.1 % (34.0-46.0); HDW 3.67; HGB 13.7 gm/dL (11.4-16.0); Luc # (Auto) 0.09; Luc % (Auto) 1; Lymphocytes % (A) 10 %; MCH 28.3 pg (25.0-35.0); MCHC 32.4 g/dL (31.0-37.0); MCV 87.4 fL (80.0-100.0); Mean Platelet Volume 8.3; Monocytes # (A) 0.4 k/uL (0-1.0); Monocytes % (A) 4 %; Neutrophils # (A) 8.2 k/uL (1.3-7.7); Neutrophils % (A) 82 %; Poikilocytosis Slight; RBC 4.82 m/uL (3.80-5.40); RDW 15.9 % (11.5-15.5); WBC 10.1 k/uL (3.8-10.6); WBC (Perox) 10.35
[2016-06-01 01:44] LABS: INR 1.2 (<1.1); Partial Thromboplastin Time 25.6 sec (22.0-30.0); Prothrombin Time 12.3 sec (9.0-12.0)
[2016-06-01 01:45] LABS: ALT 45 U/L (9-52); AST 49 U/L (14-36); Alkaline Phosphatase 118 U/L (38-126); Amylase 84 U/L (30-110); Anion Gap 9 mmol/L; Blood Urea Nitrogen 16 mg/dL (7-17); Calcium 9.1 mg/dL (8.4-10.2); Carbon Dioxide 29 mmol/L (22-30); Chloride 106 mmol/L (98-107); Glucose 94 mg/dL (74-99); Magnesium 1.6 mg/dL (1.6-2.3); Non-African American GFR(MDRD) >60 (>60 ml/min/1.73 sqM); Potassium 3.8 mmol/L (3.5-5.1); Sodium 144 mmol/L (137-145); Total Bilirubin 0.8 mg/dL (0.2-1.3)
--- NOTE | 2016-06-01 01:51 | XR ---
EXAM: XR Chest, 2 Views. CLINICAL HISTORY: Reason: Chest Pain TECHNIQUE: Frontal and lateral views of the chest. COMPARISON: 02/14/2016 FINDINGS: Lungs: Unremarkable. No consolidation. Pleural space: Unremarkable. No pneumothorax. Heart: Stable cardiomediastinal silhouette. Mediastinum: See above. Bones/joints: No acute osseous abnormality. IMPRESSION: No acute cardiopulmonary process.
[2016-06-01 01:58] LABS: Creatine Kinase 58 U/L (30-135)
[2016-06-01 02:11] LABS: Creatine Kinase MB 0.7 ng/mL (0.0-2.4); Troponin I <0.012 ng/mL (0.000-0.034)
[2016-06-01] MEDS ORDERED: IBUPROFEN 400 MG TAB PO PRN (02:51)
[2016-06-01] MEDS ORDERED: NALOXONE 0.4 MG/ML 1 ML VIAL IV PRN (02:51)
[2016-06-01] MEDS ORDERED: ACETAMINOPHEN TAB 325 MG TAB PO PRN (02:51)
[2016-06-01] MEDS ORDERED: ONDANSETRON 4 MG/2 ML VIAL IVP PRN (02:51)
[2016-06-01 04:17] VITALS: BMI 51.7
[2016-06-01] MEDS: SODIUM CHLORIDE 0.9% 1,000 ML IV SCH ×4 (04:21→20:09)
[2016-06-01 07:09] LABS: Glucose,Whole Blood 133 mg/dL (75-99)
[2016-06-01 08:03] LABS: Creatine Kinase 48 U/L (30-135)
[2016-06-01 08:16] LABS: Creatine Kinase MB 0.5 ng/mL (0.0-2.4); Troponin I <0.012 ng/mL (0.000-0.034)
[2016-06-01] MEDS: INSULIN LISPRO (humaLOG) 300 UNIT/3 ML VIAL SQ SCH ×4 (08:33→20:08)
[2016-06-01 10:20] LABS: Glucose,Whole Blood 235 mg/dL (75-99)
[2016-06-01 11:27] LABS: Hemoglobin A1C 8.5 % (4.2-6.1)
[2016-06-01 12:10] LABS: Glucose,Whole Blood 252 mg/dL (75-99)
[2016-06-01] MEDS ORDERED: HYDROcodone/APAP 10-325MG 1 EACH TAB PO PRN (12:38)
[2016-06-01] MEDS ORDERED: ALBUTEROL NEBULIZED 2.5 MG/3 ML INHALATION PRN (12:38)
[2016-06-01] MEDS ORDERED: MUPIROCIN 2% OINT 22 GM TUBE TOPICAL SCH (12:45)
[2016-06-01] MEDS ORDERED: RX INFO: IV CONTRAST WAS GIVEN 1 EACH MISC MISCELLANE PRN (14:04)
[2016-06-01 14:07] LABS: Creatine Kinase 59 U/L (30-135)
[2016-06-01 14:16] LABS: Creatine Kinase MB 0.6 ng/mL (0.0-2.4)
--- NOTE | 2016-06-01 14:16 | P.HPIM ---
History of Present Illness H&P Date: 06/01/16 Chief Complaint: Diarrhea This is a 60-year-old female with a known history of diabetes mellitus, asthma, COPD, hyperlipidemia, hypothyroidism, obstructive sleep apnea, bipolar and obesity. She presents to the emergency room with complaints of diarrhea and weakness. Patient states the diarrhea started last night she is having multiple stools and stool incontinence. Stools are very watery and brown. She denies any blood in the stools. She's been feeling weak all over. She also had some upper respiratory symptoms with runny nose and mild cough. And achy throughout with fever and chills. She did have a temp of 101.6. White count normal at 10.1. She is found to have a lipase elevated at 1049 amylase was normal. ALT normal at 45 AST slightly elevated at 49. Computed tomography scan of the abdomen has been ordered. She was initially made nothing by mouth we'll start her on a clear liquid diet. Consults for surgery and infectious disease. Patient does have a left foot ulcer which is chronic and followed at wound care [facility] by Dr. Burleson. Patient's chest x-rays negative EKG shows normal sinus rhythm. Stool studies have been ordered. Patient denies any chest pain or shortness of breath. Denies any nausea or vomiting. Denies any burning with urination. Some of her family members have been sick with similar symptoms at home. She denies any recent traveling. She did eat a row speech seem much from a restaurant yesterday. Review of Systems Please refer to HPI otherwise unremarkable Past Medical History Past Medical History: Asthma, Cancer, COPD, Diabetes Mellitus, Eye Disorder, Hyperlipidemia, Musculoskeletal Disorder, Neurologic Disorder, Osteoarthritis ( OA), Sleep Apnea/CPAP/BIPAP, Thyroid Disorder Additional Past Medical History / Comment(s): History of osteomyelitis left #3 toe and left calf: 2004. History of Any Multi-Drug Resistant Organisms: None Reported Past Surgical History: Section, Cholecystectomy, Hysterectomy, Orthopedic Surgery, Tonsillectomy, Tubal Ligation Additional Past Surgical History / Comment(s): cataracts and laser surgery for glaucoma. Multiple I&D to left foot and lower leg. Past Anesthesia/Blood Transfusion Reactions: No Reported Reaction Past Psychological History: Bipolar, Depression Additional Psychological History / Comment(s): Borderline personality Smoking Status: Former smoker Past Alcohol Use History: None Reported Additional Past Alcohol Use History / Comment(s): Patient was a smoker of 2 packs per day for 21 years and quit in 1992. She does use marijuana on occasional basis. She denies any medical marijuana card. She denies any alcohol use or abuse. She is currently living at home and one adult son is living with her. She has been on disability. She is mostly wheelchair bound Past Drug Use History: Marijuana - Past Family History Father Family Medical History: Congestive Heart Failure (CHF), Coronary Artery Disease (CAD), Myocardial Infarction ([place]) Mother Family Medical History: Coronary Artery Disease (CAD), CVA/TIA, Dementia, Myocardial Infarction ([place]) Medications and Allergies Home Medications Medication Instructions Recorded Confirmed Type Albuterol Inhaler [Ventolin Hfa 1 puff INHALATION RT-QID PRN 02/18/14 06/01/16 History Inhaler] Cyclobenzaprine [Flexeril] 10 mg PO BID@1000,2100 02/18/14 06/01/16 History Simvastatin [Zocor] 40 mg PO HS@209902/18/14 06/01/16 History metFORMIN HCL [Glucophage] 850 mg PO BID@1000,209902/18/14 06/01/16 History Insulin Glargine [Lantus] 100 unit SQ DAILY@1000 07/12/14 06/01/16 History Cetirizine HCl 10 mg PO DAILY@1000 10/25/14 06/01/16 History Ibuprofen [Motrin] 800 mg PO TID@1000,1400,2100 10/25/14 06/01/16 History HYDROcodone/APAP 10-325MG [[place] 1 tab PO Q8H PRN 06/18/15 06/01/16 History 10-325] INSULIN LISPRO (humaLOG) [humaLOG 25 unit SQ TID-W/MEALS 06/18/15 06/01/16 History (formulary)] Pregabalin [Lyrica] 150 mg PO BID 06/19/15 06/01/16 History Albuterol Sulfate 2.5 mg INHALATION RT-QID 12/14/15 06/01/16 History Insulin Glargine [Lantus] 70 unit SQ HS 12/14/15 06/01/16 History Latanoprost Ophth [Xalatan 0.005%] 1 drop BOTH EYES HS 12/14/15 06/01/16 History Levothyroxine Sodium 75 mcg PO DAILY 12/14/15 06/01/16 History Amino Acids/Protein Hydrolys 300 ml PO BID 05/04/16 06/01/16 History [Pro-Stat Supplement] Aspirin EC [Ecotrin Low Dose] 81 mg PO DAILY 06/01/16 06/01/16 History Colloidal Oatmeal [Eucerin Eczema 1 applic TOPICAL DAILY 06/01/16 06/01/16 History Relief] Diclofenac Sodium [Voltaren Gel] 2 gram TOPICAL TID 06/01/16 06/01/16 History Fexofenadine HCl [Ruby Allergy] 180 mg PO DAILY 06/01/16 06/01/16 History Glucagon Emergency Kit 1 mg IM ONCE 06/01/16 06/01/16 History Multivit-Min/FA/Lycopene/Lut 1 each PO DAILY 06/01/16 06/01/16 History [Centrum Silver Tablet] Mupirocin 2% Oint [Bactroban 2% 1 applic TOPICAL DIRECTED 06/01/16 06/01/16 History Oint] Nystatin 100,000 Unit/gm Powd 1 applic TOPICAL BID 06/01/16 06/01/16 History [Mycostatin Powder] Triamcinolone 0.5% Cream [Kenalog 1 applic TOPICAL DAILY 06/01/16 06/01/16 History 0.5% Cream] Triamterene-Hctz 37.5-25Mg 1 tab PO DAILY 06/01/16 06/01/16 History [Maxzide 37.5-25] Venlafaxine HCl ER [Effexor Xr] 150 mg PO DAILY 06/01/16 06/01/16 History Allergies Allergy/AdvReac Type Severity Reaction Status Date / Time Penicillins Allergy Anaphylaxis Verified 06/01/16 10:26 Physical Exam Vitals: Vital Signs Temp Pulse Resp BP Pulse Ox 06/01/16 12:42 97.5 F L 89 20 142/65 99 06/01/16 10:54 98.6 F 06/01/16 09:10 101.6 F H 92 20 139/51 98 06/01/16 03:46 97.7 F 90 18 132/50 96 Intake and Output 05/31/16 06/01/16 06/01/16 22:59 06:59 14:59 Other: Voiding Method Toilet # Voids 1 # Bowel Movements 1 3 Weight 154.221 kg Head normocephalic Neck supple Lungs clear to auscultation bilaterally no wheezing or crackles Heart regular rate and rhythm S1-S2, no rub or gallop Abdomen is soft epigastric and right upper quadrant tenderness positive bowel sounds Extremities no edema Neuro alert and orientated to 3 Results CBC & Chem 7: 06/01/16 01:25 06/01/16 01:25 Labs: Abnormal Lab Results - Last 24 Hours (Table) 06/01/16 06/01/16 06/01/16 Range/Units 07:05 07:17 09:44 POC Glucose (mg/dL) 133 H 235 H (75-99) mg/dL Hemoglobin A1c 8.5 H (4.2-6.1) % 06/01/16 Range/Units 12:05 POC Glucose (mg/dL) 252 H (75-99) mg/dL Hemoglobin A1c (4.2-6.1) % Thrombosis Risk Factor Assmnt - Choose All That Apply Any of the Below Risk Factors Present?: Yes Each Factor Represents 1 point: Abnormal pulmonary function (COPD), Age 41-60 years, Obesity (BMI >25), Swollen legs (current) Thrombosis Risk Factor Assessment Total Risk Factor Score: 4 Thrombosis Risk Factor Assessment Level: Moderate Risk Assessment and Plan Plan: 1. Severe diarrhea: Check stool studies. Check stool for C. diff and norovirus. Continue with IV fluid hydration. Continue to monitor electrolytes 2. Acute pancreatitis: Elevated lipase on admission 1049. Patient initially nothing by mouth. We'll start a clear liquid diet. Repeat amylase and lipase in a.m. Check a computed tomography scan of the abdomen and pelvis. History of cholecystectomy. Consult Dr. Silva 3. Diabetes mellitus type 2: Resume patient's insulin continue sliding scale coverage. Hemoglobin A1c is 8.5. 4. Chronic thrombocytopenia: Exact etiology unclear. Continue to monitor. 5. Chronic left foot ulcer: Consult Dr. Nielsen. Patient is followed by Dr. Burleson outpatient wound care clinic 6. Hypothyroidism continue Synthroid 7. Essential hypertension: Blood pressure stable continue his current medications 8. History of bipolar 9. History of obstructive sleep apnea GI prophylaxis Pepcid and DVT prophylaxis SCDs Time with Patient: Greater than 30 (Greater than 50% of the total time spent in counseling and coordination of care.I performed an examination of the patient and discussed their management with the physician School Traffic Supervisor. I have reviewed the Physician School Traffic Supervisor's notes and agree with the documented findings and plan of care)
[2016-06-01 14:20] LABS: Troponin I <0.012 ng/mL (0.000-0.034)
[2016-06-01] MEDS: IOHEXOL 350 MG/ML 25 ML BOTTLE (ORAL USE) PO PRN ×2 (14:30→15:22)
[2016-06-01 15:06] LABS: Amylase 33 U/L (30-110); Triglycerides 82 mg/dL (<150)
[2016-06-01] MEDS: MECLIZINE 25 MG TAB PO SCH ×2 (15:24→21:00)
[2016-06-01] MEDS: DICLOFENAC SODIUM GEL 100 GM TUBE TOPICAL SCH ×2 (15:25→21:00)
[2016-06-01] MEDS: ALBUTEROL NEBULIZED 2.5 MG/3 ML INHALATION SCH ×2 (16:59→21:16)
--- NOTE | 2016-06-01 16:59 | CT ---
EXAMINATION TYPE: CT abdomen pelvis w con DATE OF EXAM: 06/01/2016 4:43 PM COMPARISON: NONE HISTORY: Mid abdominal pain. Possible pancreatitis. CT DLP: 1621.00 mGycm Automated exposure control for dose reduction was used. CONTRAST: CT scan of the abdomen pelvis is performed with IV Contrast, patient injected with 100 mL of Omnipaqu e 300. FINDINGS- LUNG BASES- No significant abnormality is appreciated. LIVER/GB- No gross abnormality is appreciated. Gallbladder is surgically removed. The contour of th e liver is somewhat nodular correlate for cirrhosis. PANCREAS-there is adenopathy in the gastrohepatic ligament measuring a short axis of 1.4 cm in there is slight ill-definition along the upper margin of the body the pancreas which could be related to mi ld pancreatitis correlate with serum enzymes. SPLEEN-spleen is enlarged measuring 18.5 cm. There are prominent to venous structures surrounding the spleen suggestive of varices. ADRENALS- No gross abnormality is seen. KIDNEYS/BLADDER- no hydronephrosis nephrolithiasis or renal mass. BOWEL-bowel gas pattern nonspecific. A few prominent small bowel loops in the mid abdomen are noted m ay been the basis of ileus or enteritis. LYMPH NODES- No greater than 1cm abdominal or pelvic lymph nodes areappreciated. OSSEOUS STRUCTURES-hypertrophic and degenerative change of the spine. OTHER-inferior to the left kidney is a 3.5 cm cystic lesion measuring 3 Hounsfield units. This may be related to a cyst. The uterus is been surgically removed. There is a fat-containing soft tissue is d ensity in and the left iliac region which may represent an area of lymphadenopathy. Has a benign appe arance. IMPRESSION- 1. There is haziness of the mesentery and along the upper margin of the body of the pancreas. Differe ntial include mesentery right wrist which is favored over pancreatitis. Correlate with serum enzymes. 2. Splenomegaly with nodular pattern to the liver and suggestive of splenic varices correlate for hep atic cirrhosis. 3. Lymphadenopathy in the gastrohepatic ligament with a short axis measurement of 1.4 cm 4. There are few dilated small bowel loops in the lower abdomen which are nonspecific. Contrast is se en to extend in the colon. Ileus or enteritis would be a consideration. Partial obstruction not entir juan excluded. 5. Retroperitoneal simple appearing cyst
[2016-06-01 17:30] LABS: Glucose,Whole Blood 297 mg/dL (75-99)
[2016-06-01] MEDS ORDERED: INSULIN LISPRO (humaLOG) 300 UNIT/3 ML VIAL SQ SCH (17:30)
[2016-06-01 19:40] LABS: Glucose,Whole Blood 346 mg/dL (75-99)
[2016-06-01] MEDS: INSULIN GLARGINE 100 UNIT/ML 10 ML VIAL SQ SCH (20:08)
[2016-06-01] MEDS: NYSTATIN 100,000 UNIT/GM POWD 15 GM TOPICAL SCH (21:00)
[2016-06-01] MEDS: LATANOPROST 0.005% OPHTH DROPS 2.5 ML BTL BOTH EYES SCH (21:00)
[2016-06-01] MEDS: CYCLOBENZAPRINE 10 MG TAB PO SCH (21:00)
[2016-06-01] MEDS ORDERED: PROTEIN HYDROLYS PO SCH (21:00)
[2016-06-01] MEDS ORDERED: HEPARIN SODIUM,PORCINE 5,000 UNIT/ML 1 ML VIAL SQ SCH (21:00)
[2016-06-01] MEDS ORDERED: AMINO ACIDS PO SCH (21:00)
[2016-06-01] MEDS: PREGABALIN 75 MG CAP PO SCH (21:00)
[2016-06-02 00:24] LABS: Glucose,Whole Blood 222 mg/dL (75-99)
[2016-06-02] MEDS: SODIUM CHLORIDE 0.9% 1,000 ML IV SCH ×3 (02:55→17:46)
[2016-06-02] MEDS: LEVOTHYROXINE 75 MCG TAB PO SCH (06:14)
[2016-06-02 06:44] LABS: Anisocytosis Slight; Basophils % (A) 1 %; CH 28.8; CHCM 32.2; Eosinophils # (A) 0.2 k/uL (0-0.7); Eosinophils % (A) 5 %; HCT 38.5 % (34.0-46.0); HDW 3.74; HGB 12.2 gm/dL (11.4-16.0); Hypochromasia Slight; Luc # (Auto) 0.11; Luc % (Auto) 2; Lymphocytes # (A) 1.1 k/uL (1.0-4.8); Lymphocytes % (A) 23 %; MCH 28.7 pg (25.0-35.0); MCHC 31.8 g/dL (31.0-37.0); MCV 90.1 fL (80.0-100.0); Mean Platelet Volume 7.8; Monocytes # (A) 0.2 k/uL (0-1.0); Monocytes % (A) 5 %; Neutrophils # (A) 2.9 k/uL (1.3-7.7); Neutrophils % (A) 64 %; Poikilocytosis Slight; RBC 4.27 m/uL (3.80-5.40); WBC 4.5 k/uL (3.8-10.6); WBC (Perox) 4.67
[2016-06-02 06:53] LABS: ALT 33 U/L (9-52); AST 34 U/L (14-36); Alkaline Phosphatase 96 U/L (38-126); Amylase 33 U/L (30-110); Anion Gap 9 mmol/L; Blood Urea Nitrogen 9 mg/dL (7-17); Calcium 8.1 mg/dL (8.4-10.2); Carbon Dioxide 24 mmol/L (22-30); Chloride 110 mmol/L (98-107); Glucose 194 mg/dL (74-99); Magnesium 1.6 mg/dL (1.6-2.3); Non-African American GFR(MDRD) >60 (>60 ml/min/1.73 sqM); Phosphorous 3.4 mg/dL (2.5-4.5); Potassium 3.7 mmol/L (3.5-5.1); Sodium 143 mmol/L (137-145); Total Protein 7.2 g/dL (6.3-8.2)
[2016-06-02 07:17] LABS: Glucose,Whole Blood 299 mg/dL (75-99)
[2016-06-02 07:53] LABS: Manual Review Performed
[2016-06-02 07:55] LABS: Glucose,Whole Blood 264 mg/dL (75-99)
[2016-06-02] MEDS: INSULIN LISPRO (humaLOG) 300 UNIT/3 ML VIAL SQ SCH ×6 (08:04→21:31)
[2016-06-02] MEDS ORDERED: TRIAMCINOLONE ACET 0.5% CREAM 15 GM TUBE TOPICAL SCH (09:00)
[2016-06-02] MEDS ORDERED: NON-FORMULARY DRUG (Fexofenadine Hcl [Allegra Allergy] 180 MG) PO SCH (09:00)
[2016-06-02] MEDS: ALBUTEROL NEBULIZED 2.5 MG/3 ML INHALATION SCH ×4 (09:16→19:57)
[2016-06-02] MEDS: LORATADINE 10 MG TAB PO SCH (09:35)
[2016-06-02] MEDS: PREGABALIN 75 MG CAP PO SCH ×2 (09:35→21:37)
[2016-06-02] MEDS: FAMOTIDINE 20 MG TAB PO SCH (09:35)
[2016-06-02] MEDS: ASPIRIN 81 MG CHEW PO SCH (09:35)
[2016-06-02] MEDS: MECLIZINE 25 MG TAB PO SCH ×2 (09:35→17:47)
[2016-06-02] MEDS: TRIAMTERENE-HCTZ 37.5-25MG 1 EACH TAB PO SCH (09:35)
[2016-06-02] MEDS: VENLAFAXINE HCL ER 150 MG CAP PO SCH (09:35)
[2016-06-02] MEDS: NYSTATIN 100,000 UNIT/GM POWD 15 GM TOPICAL SCH ×2 (09:36→21:37)
[2016-06-02] MEDS: CYCLOBENZAPRINE 10 MG TAB PO SCH ×2 (09:36→21:37)
[2016-06-02] MEDS: DICLOFENAC SODIUM GEL 100 GM TUBE TOPICAL SCH (09:44)
[2016-06-02] MEDS: INSULIN GLARGINE 100 UNIT/ML 10 ML VIAL SQ SCH ×2 (09:51→21:31)
[2016-06-02 11:05] LABS: Glucose,Whole Blood 289 mg/dL (75-99)
--- NOTE | 2016-06-02 12:04 | P.PN ---
Subjective Patient presented with diarrhea and fever. And evidence of acute pancreatitis. Symptoms possibly could be related to a viral gastroenteritis. She did have evidence of an acute pancreatitis. Amylase and lipase have normalized. Diarrhea has resolved. Patient was seen by surgical service. GI service is also been consulted due to liver cirrhosis noted on computed tomography scan the abdomen. Patient is feeling better. Denies any chest pain or shortness breath. Denies any nausea or vomiting. She is hungry. Abdominal pain resolved. Diarrhea resolved yesterday afternoon. She has no difficulty urinating. Objective - Vital Signs Vital signs: Vital Signs Temp 98.5 F 06/02/16 10:00 Pulse 80 06/02/16 09:30 Resp 24 06/02/16 08:15 BP 134/59 06/02/16 08:15 Pulse Ox 98 06/02/16 08:15 Intake & Output 06/01/16 06/02/16 06/02/16 18:59 06:59 18:59 Intake Total 300 Output Total 550 Balance -550 300 Intake: Oral 300 Output: Stool 550 Other: Voiding Method Toilet # Voids 1 # Bowel Movements 1 - Exam Head normocephalic Neck supple Lungs clear to auscultation bilaterally no wheezing or crackles Heart regular rate and rhythm S1-S2, no rub or gallop Abdomen is soft nontender nondistended positive bowel sounds no hepatosplenomegaly Extremities no edema Neuro alert and orientated to 3 - Labs CBC & Chem 7: 06/02/16 06:26 06/02/16 06:26 Labs: Abnormal Lab Results - Last 24 Hours (Table) 06/01/16 06/01/16 06/01/16 Range/Units 07:17 12:05 17:27 RDW (11.5-15.5) % Plt Count (150-450) k/uL Chloride (98-107) mmol/L Glucose (74-99) mg/dL POC Glucose (mg/dL) 252 H 297 H (75-99) mg/dL Hemoglobin A1c 8.5 H (4.2-6.1) % Calcium (8.4-10.2) mg/dL Albumin (3.5-5.0) g/dL 06/01/16 06/02/16 06/02/16 Range/Units 19:37 00:22 06:26 RDW 16.0 H (11.5-15.5) % Plt Count 78 L (150-450) k/uL Chloride (98-107) mmol/L Glucose (74-99) mg/dL POC Glucose (mg/dL) 346 H 222 H (75-99) mg/dL Hemoglobin A1c (4.2-6.1) % Calcium (8.4-10.2) mg/dL Albumin (3.5-5.0) g/dL 06/02/16 06/02/16 06/02/16 Range/Units 06:26 07:14 07:52 RDW (11.5-15.5) % Plt Count (150-450) k/uL Chloride 110 H (98-107) mmol/L Glucose 194 H (74-99) mg/dL POC Glucose (mg/dL) 299 H 264 H (75-99) mg/dL Hemoglobin A1c (4.2-6.1) % Calcium 8.1 L (8.4-10.2) mg/dL Albumin 3.4 L (3.5-5.0) g/dL 06/02/16 Range/Units 11:00 RDW (11.5-15.5) % Plt Count (150-450) k/uL Chloride (98-107) mmol/L Glucose (74-99) mg/dL POC Glucose (mg/dL) 289 H (75-99) mg/dL Hemoglobin A1c (4.2-6.1) % Calcium (8.4-10.2) mg/dL Albumin (3.5-5.0) g/dL Microbiology - Last 24 Hours (Table) 06/01/16 12:00 Stool for WBCs - Final Stool 06/01/16 12:00 Stool Culture - Preliminary Stool Assessment and Plan Plan: 1. Severe diarrhea: May be secondary to a viral gastroenteritis. Stool studies are negative so far. Diarrhea has resolved. Continue with IV fluid hydration. Continue to monitor electrolytes 2. Acute pancreatitis: Elevated lipase on admission 1049. Lipase has normalized. Abdominal pain has resolved. Advancing diet to full liquid and then as tolerated. Seen by surgical service no surgical intervention required. She did have a computed tomography scan of the abdomen which showed possibly a mild pancreatitis. Denies any alcohol use. Triglyceride level normal. Also will await GI service evaluation. 3. Diabetes mellitus type 2: Resume patient's insulin continue sliding scale coverage. Hemoglobin A1c is 8.5. 4. Chronic thrombocytopenia: Exact etiology unclear. Continue to monitor. 5. Chronic left foot ulcer: Consult Dr. Nielsen. Patient is followed by Dr. Burleson outpatient wound care clinic 6. Hypothyroidism continue Synthroid 7. Essential hypertension: Blood pressure stable continue his current medications 8. History of bipolar 9. History of obstructive sleep apnea 10. Incidental finding of possible hepatic cirrhosis on computed tomography scan of the abdomen. We'll consult GI service. Check hepatitis panel GI prophylaxis Pepcid and DVT prophylaxis SCDs
[2016-06-02 12:28] LABS: Hepatitis B Surface Ag Index 0.09
[2016-06-02 12:34] LABS: Hepatitis B Core IgM Index 0.04
[2016-06-02] MEDS: MINERAL OIL-WHITE PETROLATUM 120 GM JAR TOPICAL SCH (12:38)
[2016-06-02] MEDS: MULTIVITAMINS, THERA 1 EACH TAB PO SCH (12:38)
[2016-06-02 12:46] LABS: Hepatitis C Virus IgG Index 0.03
[2016-06-02 12:55] LABS: Hepatitis C Virus IgG Ab Negative (Negative)
--- NOTE | 2016-06-02 14:08 | P.GSCN ---
History of Present Illness Consult date: 06/02/16 Reason for Consult: Pancreatitis Requesting physician: Sofy Wade History of present illness: Patient is a 60-year-old white female, patient of Dr. Seymour in the outpatient setting, with medical history significant for diabetes mellitus, hyperlipidemia , and morbid obesity. Surgical history significant for , cholecystectomy, tubal ligation, and hysterectomy. Patient presented to the hospital with chief complaint of diarrhea and generalized weakness. Onset of symptoms night sudden onset with multiple episodes of diarrhea, no history of melena or hematochezia. Patient reports chills and fevers. Patient does report sick contacts with similar symptoms. No new medications or antibiotics. Amylase was elevated at 2049, ALT normal at 45, AST slightly elevated at 49. CT of abdomen and pelvis with evidence of splenomegaly with nodular pattern to the liver suggestive of splenic varices correlate for hepatic cirrhosis. A few dilated small loops of the lower abdomen suggestive of ileus or enteritis. Hepatitis panel negative. Surgical consult requested for pancreatitis. Upon examination, patient is feeling better. Patient complains of mild epigastric pain. Denies chills, fevers, nausea, vomiting, shortness of breath, or chest pain. No further episodes of diarrhea this morning. Patient is tolerating a clear liquid diet. T-max the last 24 hours 100.5. Patient afebrile this morning. No evidence of leukocytosis. Lipase and amylase normal. Past Medical History Past Medical History: Asthma, Cancer, COPD, Diabetes Mellitus, Eye Disorder, Hyperlipidemia, Musculoskeletal Disorder, Neurologic Disorder, Osteoarthritis ( OA), Sleep Apnea/CPAP/BIPAP, Thyroid Disorder Additional Past Medical History / Comment(s): History of osteomyelitis left #3 toe and left calf: 2004. History of Any Multi-Drug Resistant Organisms: None Reported Past Surgical History: Section, Cholecystectomy, Hysterectomy, Orthopedic Surgery, Tonsillectomy, Tubal Ligation Additional Past Surgical History / Comment(s): cataracts and laser surgery for glaucoma. Multiple I&D to left foot and lower leg. Past Anesthesia/Blood Transfusion Reactions: No Reported Reaction Past Psychological History: Bipolar, Depression Additional Psychological History / Comment(s): Borderline personality Smoking Status: Former smoker Past Alcohol Use History: None Reported Additional Past Alcohol Use History / Comment(s): Patient was a smoker of 2 packs per day for 21 years and quit in 1992. She does use marijuana on occasional basis. She denies any medical marijuana card. She denies any alcohol use or abuse. She is currently living at home and one adult son is living with her. She has been on disability. She is mostly wheelchair bound Past Drug Use History: Marijuana - Past Family History Father Family Medical History: Congestive Heart Failure (CHF), Coronary Artery Disease (CAD), Myocardial Infarction ([place]) Mother Family Medical History: Coronary Artery Disease (CAD), CVA/TIA, Dementia, Myocardial Infarction ([place]) Medications and Allergies Home Medications Medication Instructions Recorded Confirmed Type Albuterol Inhaler [Ventolin Hfa 1 puff INHALATION RT-QID PRN 02/18/14 06/01/16 History Inhaler] Cyclobenzaprine [Flexeril] 10 mg PO BID@1000,2100 02/18/14 06/01/16 History Simvastatin [Zocor] 40 mg PO HS@209902/18/14 06/01/16 History metFORMIN HCL [Glucophage] 850 mg PO BID@1000,209902/18/14 06/01/16 History Insulin Glargine [Lantus] 100 unit SQ DAILY@1000 07/12/14 06/01/16 History Cetirizine HCl 10 mg PO DAILY@1000 10/25/14 06/01/16 History Ibuprofen [Motrin] 800 mg PO TID@1000,1400,2100 10/25/14 06/01/16 History HYDROcodone/APAP 10-325MG [[place] 1 tab PO Q8H PRN 06/18/15 06/01/16 History 10-325] INSULIN LISPRO (humaLOG) [humaLOG 25 unit SQ TID-W/MEALS 06/18/15 06/01/16 History (formulary)] Pregabalin [Lyrica] 150 mg PO BID 06/19/15 06/01/16 History Albuterol Sulfate 2.5 mg INHALATION RT-QID 12/14/15 06/01/16 History Insulin Glargine [Lantus] 70 unit SQ HS 12/14/15 06/01/16 History Latanoprost Ophth [Xalatan 0.005%] 1 drop BOTH EYES HS 12/14/15 06/01/16 History Levothyroxine Sodium 75 mcg PO DAILY 12/14/15 06/01/16 History Amino Acids/Protein Hydrolys 300 ml PO BID 05/04/16 06/01/16 History [Pro-Stat Supplement] Aspirin EC [Ecotrin Low Dose] 81 mg PO DAILY 06/01/16 06/01/16 History Colloidal Oatmeal [Eucerin Eczema 1 applic TOPICAL DAILY 06/01/16 06/01/16 History Relief] Diclofenac Sodium [Voltaren Gel] 2 gram TOPICAL TID 06/01/16 06/01/16 History Fexofenadine HCl [Ruby Allergy] 180 mg PO DAILY 06/01/16 06/01/16 History Glucagon Emergency Kit 1 mg IM ONCE 06/01/16 06/01/16 History Multivit-Min/FA/Lycopene/Lut 1 each PO DAILY 06/01/16 06/01/16 History [Centrum Silver Tablet] Mupirocin 2% Oint [Bactroban 2% 1 applic TOPICAL DIRECTED 06/01/16 06/01/16 History Oint] Nystatin 100,000 Unit/gm Powd 1 applic TOPICAL BID 06/01/16 06/01/16 History [Mycostatin Powder] Triamcinolone 0.5% Cream [Kenalog 1 applic TOPICAL DAILY 06/01/16 06/01/16 History 0.5% Cream] Triamterene-Hctz 37.5-25Mg 1 tab PO DAILY 06/01/16 06/01/16 History [Maxzide 37.5-25] Venlafaxine HCl ER [Effexor Xr] 150 mg PO DAILY 06/01/16 06/01/16 History Allergies Allergy/AdvReac Type Severity Reaction Status Date / Time Penicillins Allergy Anaphylaxis Verified 06/01/16 10:26 Surgical - Exam Vital Signs Temp Pulse Resp BP 99.2 F 96 18 166/69 06/01/16 00:29 06/01/16 00:29 06/01/16 00:29 06/01/16 00:29 GENERAL: Pt awake and alert, well-appearing, well-nourished, and in no acute distress. HEAD: Atraumatic, normocephalic. EYES: Pupils equal and round. Sclera anicteric, conjunctiva are normal. ENT: Moist mucous membranes. LUNGS: Breath sounds clear to auscultation bilaterally. No wheezes, rales, or rhonchi. HEART: Heart S1, S2, no S3 or S4. Regular rate and rhythm. No murmurs, rubs or gallops. ABDOMEN: Soft, mild epigastric tenderness, normoactive bowel sounds. No guarding, no rebound. NEUROLOGICAL: Pt oriented x 3. Results - Labs 06/02/16 06:26 06/02/16 06:26 Abnormal Lab Results - Last 24 Hours (Table) 06/01/16 06/01/16 06/02/16 Range/Units 17:27 19:37 00:22 RDW (11.5-15.5) % Plt Count (150-450) k/uL Chloride (98-107) mmol/L Glucose (74-99) mg/dL POC Glucose (mg/dL) 297 H 346 H 222 H (75-99) mg/dL Calcium (8.4-10.2) mg/dL Albumin (3.5-5.0) g/dL 06/02/16 06/02/16 06/02/16 Range/Units 06:26 06:26 07:14 RDW 16.0 H (11.5-15.5) % Plt Count 78 L (150-450) k/uL Chloride 110 H (98-107) mmol/L Glucose 194 H (74-99) mg/dL POC Glucose (mg/dL) 299 H (75-99) mg/dL Calcium 8.1 L (8.4-10.2) mg/dL Albumin 3.4 L (3.5-5.0) g/dL 06/02/16 06/02/16 Range/Units 07:52 11:00 RDW (11.5-15.5) % Plt Count (150-450) k/uL Chloride (98-107) mmol/L Glucose (74-99) mg/dL POC Glucose (mg/dL) 264 H 289 H (75-99) mg/dL Calcium (8.4-10.2) mg/dL Albumin (3.5-5.0) g/dL Microbiology - Last 24 Hours (Table) 06/01/16 12:00 Stool for WBCs - Final Stool 06/01/16 12:00 Stool Culture - Preliminary Stool Diabetes panel 06/01/16 06/02/16 Range/Units 14:39 06:26 Sodium 143 (137-145) mmol/L Potassium 3.7 (3.5-5.1) mmol/L Chloride 110 H (98-107) mmol/L Carbon Dioxide 24 (22-30) mmol/L BUN 9 (7-17) mg/dL Creatinine 0.68 (0.52-1.04) mg/dL Glucose 194 H (74-99) mg/dL Calcium 8.1 L (8.4-10.2) mg/dL AST 34 (14-36) U/L ALT 33 (9-52) U/L Alkaline Phosphatase 96 (38-126) U/L Total Protein 7.2 (6.3-8.2) g/dL Albumin 3.4 L (3.5-5.0) g/dL Triglycerides 82 (<150) mg/dL Calcium panel 06/02/16 Range/Units 06:26 Calcium 8.1 L (8.4-10.2) mg/dL Phosphorus 3.4 (2.5-4.5) mg/dL Albumin 3.4 L (3.5-5.0) g/dL Pituitary panel 06/02/16 Range/Units 06:26 Sodium 143 (137-145) mmol/L Potassium 3.7 (3.5-5.1) mmol/L Chloride 110 H (98-107) mmol/L Carbon Dioxide 24 (22-30) mmol/L BUN 9 (7-17) mg/dL Creatinine 0.68 (0.52-1.04) mg/dL Glucose 194 H (74-99) mg/dL Calcium 8.1 L (8.4-10.2) mg/dL Adrenal panel 06/02/16 Range/Units 06:26 Sodium 143 (137-145) mmol/L Potassium 3.7 (3.5-5.1) mmol/L Chloride 110 H (98-107) mmol/L Carbon Dioxide 24 (22-30) mmol/L BUN 9 (7-17) mg/dL Creatinine 0.68 (0.52-1.04) mg/dL Glucose 194 H (74-99) mg/dL Calcium 8.1 L (8.4-10.2) mg/dL Total Bilirubin 1.0 (0.2-1.3) mg/dL AST 34 (14-36) U/L ALT 33 (9-52) U/L Alkaline Phosphatase 96 (38-126) U/L Total Protein 7.2 (6.3-8.2) g/dL Albumin 3.4 L (3.5-5.0) g/dL - Imaging CT scan - abdomen: report reviewed CT scan - pelvis: report reviewed Assessment and Plan Plan: Impression: 1. Acute pancreatitis, present on admission, resolved. 2. Incidental finding of possible hepatic cirrhosis on computed tomography scan of abdomen and pelvis. Hepatitis panel negative. 3. Abdominal pain and diarrhea with associated fevers and generalized weakness , present on admission, improved suspect secondary to enteritis. Plan: 1. Advance diet as tolerated. Gastrointestinal service has been consulted for possible hepatic cirrhosis. Continue medical management. Patient is not a surgical candidate at this time. The above impression and plan have been discussed and directed by Dr. Ramesh. Jeremiah ROWLEY acting as scribe for Dr. Ramesh.
[2016-06-02 14:13] LABS: Mis test requested (Non-blood) Norovirus PCR
--- NOTE | 2016-06-02 14:44 | P.CONS ---
History of Present Illness - Reason for Consult Consult date: 06/02/16 cirrhosis pancreatitis Requesting physician: Lilibeth Seymour - History of Present Illness 60-year-old female patient Dr. Seymour with a past medical history of lifelong morbid obesity BMI 51, cholelithiasis with cholecystectomy 20 years ago, hyperlipidemia, diabetes mellitus, COPD, asthma, cervical carcinoma, sleep apnea , bipolar, hypothyroidism, osteomyelitis with toe amputation, and MRSA. Consultation requested for possible pancreatitis and cirrhosis. She presents to the ER 2 days ago with 1 day history of fever T-max 101.6, nonbloody diarrhea, weakness and sharp left shoulder discomfort. Influenza panel not detected. Multiple episodes of loose watery bowel movements. Clostridium difficile toxin not detected. Norovirus group 2 detected. Admission lipase 1049 currently 86. Amylase within normal limits. Liver chemistries unremarkable. No history of hepatitis. No history of alcohol abuse. Hepatitis panel negative. No history of pancreatitis. No changes in medications. CT abdomen and pelvis ported haziness of the mesentery along the upper margin of the body of the pancreas possible mesenteric adenitis which is favored or pancreatitis. Splenomegaly with nodular pattern to the liver suggested of splenic varices with an hepatic cirrhosis. Lymphadenopathy in the gastrohepatic ligament. Retroperitoneal simple appearing cyst. Review of Systems Constitutional: Denies fever, chills, sweats, weight gain, or loss. Morbid obesity. HEENT: Negative for migraines, blurred vision or loss, earaches, drainage, tinnitus, oral mucosal lesions, dysphagia, or odynophagia. CARDIAC: Hyperlipidemia. Negative for chest pain, arrhythmias, or palpitation. RESPIRATORY: COPD. Sleep apnea. Marijuana. Asthma. Denies cough, hemoptysis , or sputum production. GI: See HPI for pertinent findings. : Negative for hematuria, urgency, frequency, polyuria, or dysuria. GYNc: Cervical carcinoma. Denies possibility of . Negative vaginal discharge. MUSCULOSKELETAL: Osteoarthritis NEUROLOGIC: Negative for stroke or TIA. ENDOCRINE: Diabetes mellitus. Negative for thyroid problems. 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 PSYCHIATRIC: Bipolar depression. All systems: negative (See HPI) Past Medical History Past Medical History: Asthma, Cancer, COPD, Diabetes Mellitus, Eye Disorder, Hyperlipidemia, Musculoskeletal Disorder, Neurologic Disorder, Osteoarthritis ( OA), Sleep Apnea/CPAP/BIPAP, Thyroid Disorder Additional Past Medical History / Comment(s): History of osteomyelitis left #3 toe and left calf: 2004. History of Any Multi-Drug Resistant Organisms: None Reported Past Surgical History: Section, Cholecystectomy, Hysterectomy, Orthopedic Surgery, Tonsillectomy, Tubal Ligation Additional Past Surgical History / Comment(s): cataracts and laser surgery for glaucoma. Multiple I&D to left foot and lower leg. Past Anesthesia/Blood Transfusion Reactions: No Reported Reaction Past Psychological History: Bipolar, Depression Additional Psychological History / Comment(s): Borderline personality Smoking Status: Former smoker Past Alcohol Use History: None Reported Additional Past Alcohol Use History / Comment(s): Patient was a smoker of 2 packs per day for 21 years and quit in 1992. She does use marijuana on occasional basis. She denies any medical marijuana card. She denies any alcohol use or abuse. She is currently living at home and one adult son is living with her. She has been on disability. She is mostly wheelchair bound Past Drug Use History: Marijuana - Past Family History Father Family Medical History: Congestive Heart Failure (CHF), Coronary Artery Disease (CAD), Myocardial Infarction ([place]) Mother Family Medical History: Coronary Artery Disease (CAD), CVA/TIA, Dementia, Myocardial Infarction ([place]) Medications and Allergies Home Medications Medication Instructions Recorded Confirmed Type Albuterol Inhaler [Ventolin Hfa 1 puff INHALATION RT-QID PRN 02/18/14 06/01/16 History Inhaler] Cyclobenzaprine [Flexeril] 10 mg PO BID@1000,209902/18/14 06/01/16 History Simvastatin [Zocor] 40 mg PO HS@209902/18/14 06/01/16 History metFORMIN HCL [Glucophage] 850 mg PO BID@1000,209902/18/14 06/01/16 History Insulin Glargine [Lantus] 100 unit SQ DAILY@1000 07/12/14 06/01/16 History Cetirizine HCl 10 mg PO DAILY@1000 10/25/14 06/01/16 History Ibuprofen [Motrin] 800 mg PO TID@1000,1400,209910/25/14 06/01/16 History HYDROcodone/APAP 10-325MG [[place] 1 tab PO Q8H PRN 06/18/15 06/01/16 History 10-325] INSULIN LISPRO (humaLOG) [humaLOG 25 unit SQ TID-W/MEALS 03/18/16 03/02/17 History (formulary)] Pregabalin [Lyrica] 150 mg PO BID 06/19/15 06/01/16 History Albuterol Sulfate 2.5 mg INHALATION RT-QID 12/14/15 06/01/16 History Insulin Glargine [Lantus] 70 unit SQ HS 12/14/15 06/01/16 History Latanoprost Ophth [Xalatan 0.005%] 1 drop BOTH EYES HS 12/14/15 06/01/16 History Levothyroxine Sodium 75 mcg PO DAILY 12/14/15 06/01/16 History Amino Acids/Protein Hydrolys 300 ml PO BID 05/04/16 06/01/16 History [Pro-Stat Supplement] Aspirin EC [Ecotrin Low Dose] 81 mg PO DAILY 06/01/16 06/01/16 History Colloidal Oatmeal [Eucerin Eczema 1 applic TOPICAL DAILY 06/01/16 06/01/16 History Relief] Diclofenac Sodium [Voltaren Gel] 2 gram TOPICAL TID 06/01/16 06/01/16 History Fexofenadine HCl [Ruby Allergy] 180 mg PO DAILY 06/01/16 06/01/16 History Glucagon Emergency Kit 1 mg IM ONCE 06/01/16 06/01/16 History Multivit-Min/FA/Lycopene/Lut 1 each PO DAILY 06/01/16 06/01/16 History [Centrum Silver Tablet] Mupirocin 2% Oint [Bactroban 2% 1 applic TOPICAL DIRECTED 06/01/16 06/01/16 History Oint] Nystatin 100,000 Unit/gm Powd 1 applic TOPICAL BID 06/01/16 06/01/16 History [Mycostatin Powder] Triamcinolone 0.5% Cream [Kenalog 1 applic TOPICAL DAILY 06/01/16 06/01/16 History 0.5% Cream] Triamterene-Hctz 37.5-25Mg 1 tab PO DAILY 06/01/16 06/01/16 History [Maxzide 37.5-25] Venlafaxine HCl ER [Effexor Xr] 150 mg PO DAILY 06/01/16 06/01/16 History Allergies Allergy/AdvReac Type Severity Reaction Status Date / Time Penicillins Allergy Anaphylaxis Verified 06/01/16 10:26 Physical Exam Vitals: Vital Signs Temp Pulse Pulse Resp BP Pulse Ox 06/02/16 10:00 98.5 F 06/02/16 09:30 80 06/02/16 09:16 76 06/02/16 08:15 81 24 134/59 98 06/02/16 00:25 100.5 F H 89 18 111/53 98 06/01/16 21:27 88 06/01/16 21:16 90 06/01/16 20:30 100.5 F H 86 14 159/65 97 06/01/16 17:09 88 06/01/16 16:59 88 06/01/16 16:43 98.0 F 88 20 160/65 100 Intake and Output 06/01/16 06/02/16 06/02/16 22:59 06:59 14:59 Intake Total 300 Output Total 550 Balance -550 300 Intake: Oral 300 Output: Stool 550 Other: # Voids 1 1 1 # Bowel Movements 1 3 General appearance: The patient is alert, oriented, in no acute distress. Morbidly obese. HET: Head is normocephalic and atraumatic. Pupils are equal and reactive. Oropharynx is clear without lesions. Neck: Supple without lymphadenopathy. Trachea midline. Heart: S1 S2. Regular rate and rhythm. Lungs: No crackles or wheezes are heard. Abdomen: Soft, nontender, nondistended with bowel sounds. No peritoneal signs. No palpable organomegaly or masses. Extremities: Left lower extremity foot dressing. Neurological: No focal deficits. Strength and sensation are grossly intact. Results CBC & Chem 7: 06/02/16 06:26 06/02/16 06:26 Labs: Abnormal Lab Results - Last 24 Hours (Table) 06/01/16 06/01/16 06/02/16 Range/Units 17:27 19:37 00:22 RDW (11.5-15.5) % Plt Count (150-450) k/uL Chloride (98-107) mmol/L Glucose (74-99) mg/dL POC Glucose (mg/dL) 297 H 346 H 222 H (75-99) mg/dL Calcium (8.4-10.2) mg/dL Albumin (3.5-5.0) g/dL 06/02/16 06/02/16 06/02/16 Range/Units 06:26 06:26 07:14 RDW 16.0 H (11.5-15.5) % Plt Count 78 L (150-450) k/uL Chloride 110 H (98-107) mmol/L Glucose 194 H (74-99) mg/dL POC Glucose (mg/dL) 299 H (75-99) mg/dL Calcium 8.1 L (8.4-10.2) mg/dL Albumin 3.4 L (3.5-5.0) g/dL 06/02/16 06/02/16 Range/Units 07:52 11:00 RDW (11.5-15.5) % Plt Count (150-450) k/uL Chloride (98-107) mmol/L Glucose (74-99) mg/dL POC Glucose (mg/dL) 264 H 289 H (75-99) mg/dL Calcium (8.4-10.2) mg/dL Albumin (3.5-5.0) g/dL Microbiology - Last 24 Hours (Table) 06/01/16 12:00 Stool for WBCs - Final Stool 06/01/16 12:00 Stool Culture - Preliminary Stool CT scan - abdomen: report reviewed (Reviewed by Dr. Barraza) Assessment and Plan (1) Enteritis due to Norovirus Status: Acute (2) Elevated lipase Narrative/Plan: Nonspecific with normal amylase and transaminases. Possible acute pancreatitis etiology unclear possible viral. Status: Acute (3) Cirrhosis of liver Narrative/Plan: Possible metabolic possible autoimmune etiology. CT abdomen and pelvis reported gastropathic ligament lymphadenopathy with splenic varices Status: Chronic (4) Splenomegaly Status: Chronic (5) Morbid obesity with BMI of 50.0-59.9, adult Status: Chronic (6) Insulin dependent diabetes mellitus Status: Chronic (7) Thrombocytopenia Narrative/Plan: Secondary to cirrhosis. Status: Acute (8) Hyperlipidemia Status: Chronic Plan: 1. We'll obtain additional serologic workup for cirrhosis. 2. Antidiarrheals and supportive measures. 3. Return to GI office 1-2 weeks after discharge for reevaluation. Thank you for this kind referral and the opportunity to participate in the care of your patient. This consultation was discussed with Dr. Barraza. The impression and plan of care have been directed as dictated.
[2016-06-02] MEDS ORDERED: LOPERAMIDE 2 MG CAP PO PRN (14:46)
[2016-06-02 16:18] LABS: % Iron Saturation 9.5 % (20-50)
[2016-06-02 17:19] LABS: Glucose,Whole Blood 198 mg/dL (75-99)
--- NOTE | 2016-06-02 20:09 | P.CONS ---
History of Present Illness - Reason for Consult Consult date: 06/02/16 - Chief Complaint Weakness with diarrhea and left shoulder pain - History of Present Illness 60-year-old female who suffers from superobesity presents to the emergency center with a several day history of feeling very poorly. She developed copious amounts of diarrhea. It was nonbloody in nature. Says he was some nausea without much emesis. She developed a fever to 101.6. She had increasing weakness and some left shoulder blade discomfort. With this she presented to the emergency center. There she is on evidence of rapid influenza being negative. But had markedly abnormal lipase of 1049 that is improved. Amylase was normal. With admission she had further workup done. C. difficile toxin was negative. However norovirus prescription to was detected is positive. With this the infectious diseases consultation was requested. Review of Systems HEENT:Denies headache or acute visual change. Denies sinus or mouth discomforts. Denies neck stiffness or pain. Denies significant oral cavity pain. Denies difficulty on swallowing. Lungs: Denies significant shortness of breath, cough, sputum production, or hemoptysis. Cardiovascular: Denies significant shortness of breath, chest pain, chest wall pain, orthopnea, dyspnea on exertion, syncope Gastrointestinal: As per the HPI had nausea emesis diarrhea without melena or hematochezia or hematemesis Musculoskeletal: denies significant myalgias or arthralgias. No new joint swelling. Denies new back pain. Skin: Denies new rash or lesions. No new ulcers or wounds are related.. Neuro: Had headache at admission but no acute visual changes. Denies any new onset weakness or difficulty with ambulation. Denies falls or seizures. Psychiatric:Denies anxiety or depression. Endocrine: She has chronic ongoing fatigue and has ongoing weight gain. Past Medical History Past Medical History: Asthma, Cancer, COPD, Diabetes Mellitus, Eye Disorder, Hyperlipidemia, Musculoskeletal Disorder, Neurologic Disorder, Osteoarthritis ( OA), Sleep Apnea/CPAP/BIPAP, Thyroid Disorder Additional Past Medical History / Comment(s): History of osteomyelitis left #3 toe and left calf: 2004. History of Any Multi-Drug Resistant Organisms: None Reported Past Surgical History: Section, Cholecystectomy, Hysterectomy, Orthopedic Surgery, Tonsillectomy, Tubal Ligation Additional Past Surgical History / Comment(s): cataracts and laser surgery for glaucoma. Multiple I&D to left foot and lower leg. Past Anesthesia/Blood Transfusion Reactions: No Reported Reaction Past Psychological History: Bipolar, Depression Additional Psychological History / Comment(s): Borderline personality Smoking Status: Former smoker Past Alcohol Use History: None Reported Additional Past Alcohol Use History / Comment(s): Patient was a smoker of 2 packs per day for 21 years and quit in 1992. She does use marijuana on occasional basis. She denies any medical marijuana card. She denies any alcohol use or abuse. She is currently living at home and one adult son is living with her. She has been on disability. She is mostly wheelchair bound. Medically disabled. No international travel. No animals in the home. Daughter with her child and child's father live in the basement of the home. The child has been ill with diarrhea. Also had a fever Past Drug Use History: Marijuana - Past Family History Father Family Medical History: Congestive Heart Failure (CHF), Coronary Artery Disease (CAD), Myocardial Infarction (ND) Mother Family Medical History: Coronary Artery Disease (CAD), CVA/TIA, Dementia, Myocardial Infarction (ND) Medications and Allergies Home Medications and Allergies Comment(s): Current Medications Acetaminophen (Tylenol Tab) 650 mg PO Q6HR PRN PRN Reason: Mild Pain or Fever > 100.5 Last Admin: 06/02/16 00:29 Dose: 650 mg Hydrocodone Bitart/Acetaminophen (Morehouse 10) 1 each PO Q8H PRN PRN Reason: Pain Albuterol Sulfate (Ventolin Nebulized) 2.5 mg INHALATION RT-QID PRN PRN Reason: Shortness Of Breath Albuterol Sulfate (Ventolin Nebulized) 2.5 mg INHALATION RT-QID [facility] Last Admin: 06/02/16 19:57 Dose: Not Given Aspirin (Aspirin) 81 mg PO DAILY [facility] Last Admin: 06/02/16 09:35 Dose: 81 mg Cyclobenzaprine HCl (Flexeril) 10 mg PO BID@1000,2100 [facility] Last Admin: 06/02/16 09:36 Dose: 10 mg Famotidine (Pepcid) 20 mg PO DAILY [facility] Last Admin: 06/02/16 09:35 Dose: 20 mg Sodium Chloride (Saline 0.9%) 1,000 mls @ 150 mls/hr IV .Q6H40M [facility] Last Admin: 06/02/16 17:46 Dose: 150 mls/hr Ibuprofen (Motrin) 400 mg PO Q6HR PRN PRN Reason: Mild Pain or Fever > 100.5 Insulin Glargine (Lantus) 70 unit SQ HS [facility] Last Admin: 06/01/16 20:08 Dose: 70 unit Insulin Glargine (Lantus) 100 unit SQ DAILY@1000 [facility] Last Admin: 06/02/16 09:51 Dose: 100 unit Insulin Human Lispro (Humalog) 0 unit SQ ACHS [facility] PRN Reason: Protocol Last Admin: 06/02/16 17:56 Dose: 5 unit Insulin Human Lispro (Humalog) 25 unit SQ AC-TID [facility] Last Admin: 06/02/16 17:56 Dose: 25 unit Latanoprost (Xalatan 0.005%) 1 drops [facility]OTH [facility] Last Admin: 06/01/16 21:00 Dose: 1 drops Levothyroxine Sodium (Synthroid) 75 mcg PO 0630 [facility] Last Admin: 06/02/16 06:14 Dose: 75 mcg Loperamide HCl (Imodium) 2 mg PO QID PRN PRN Reason: Diarrhea Loratadine (Claritin) 10 mg PO DAILY@1000 [facility] Last Admin: 06/02/16 09:35 Dose: 10 mg Meclizine HCl (Antivert) 25 mg PO TID [facility] Last Admin: 06/02/16 17:47 Dose: 25 mg Miscellaneous Information (Rx Info: Iv Contrast Was Given) 1 each MISCELLANE DAILY PRN PRN Reason: Per Protocol Stop: 06/03/16 14:04 Multi-Ingred Cream/Lotion/Oil/Oint (Eucerin Cream) 1 applic TOPICAL DAILY [facility] Last Admin: 06/02/16 12:38 Dose: 1 applic Multivitamins (Theragran) 1 each PO 1200 [facility] Last Admin: 06/02/16 12:38 Dose: 1 each Naloxone HCl (Narcan) 0.2 mg IV Q2M PRN PRN Reason: Opioid Reversal Nystatin (Mycostatin Powder) 1 applic TOPICAL BID [facility] Last Admin: 06/02/16 09:36 Dose: 1 applic Ondansetron HCl (Zofran) 4 mg IVP Q8HR PRN PRN Reason: Nausea And Vomiting Pregabalin (Lyrica) 150 mg PO BID [facility] Last Admin: 06/02/16 09:35 Dose: 150 mg Triamterene/HCTZ (Maxzide-25) 1 each PO DAILY [facility] Last Admin: 06/02/16 09:35 Dose: 1 each Venlafaxine HCl (Effexor Xr) 150 mg PO DAILY [facility] Last Admin: 06/02/16 09:35 Dose: 150 mg Home Medications Medication Instructions Recorded Confirmed Type Albuterol Inhaler [Ventolin Hfa 1 puff INHALATION RT-QID PRN 02/18/14 06/01/16 History Inhaler] Cyclobenzaprine [Flexeril] 10 mg PO BID@1000,209902/18/14 06/01/16 History Simvastatin [Zocor] 40 mg PO HS@209902/18/14 06/01/16 History metFORMIN HCL [Glucophage] 850 mg PO BID@1000,209902/18/14 06/01/16 History Insulin Glargine [Lantus] 100 unit SQ DAILY@1000 07/12/14 06/01/16 History Cetirizine HCl 10 mg PO DAILY@1000 10/25/14 06/01/16 History Ibuprofen [Motrin] 800 mg PO TID@1000,1400,209910/25/14 06/01/16 History HYDROcodone/APAP 10-325MG [Morehouse 1 tab PO Q8H PRN 06/18/15 06/01/16 History 10-325] INSULIN LISPRO (humaLOG) [humaLOG 25 unit SQ TID-W/MEALS 06/18/15 06/01/16 History (formulary)] Pregabalin [Lyrica] 150 mg PO BID 06/19/15 06/01/16 History Albuterol Sulfate 2.5 mg INHALATION RT-QID 12/14/15 06/01/16 History Insulin Glargine [Lantus] 70 unit SQ HS 12/14/15 06/01/16 History Latanoprost Ophth [Xalatan 0.005%] 1 drop BOTH EYES 12/14/15 06/01/16 History Levothyroxine Sodium 75 mcg PO DAILY 12/14/15 06/01/16 History Amino Acids/Protein Hydrolys 300 ml PO BID 05/04/16 06/01/16 History [Pro-Stat Supplement] Aspirin EC [Ecotrin Low Dose] 81 mg PO DAILY 06/01/16 06/01/16 History Colloidal Oatmeal [Eucerin Eczema 1 applic TOPICAL DAILY 06/01/16 06/01/16 History Relief] Diclofenac Sodium [Voltaren Gel] 2 gram TOPICAL TID 06/01/16 06/01/16 History Fexofenadine HCl [Ruby Allergy] 180 mg PO DAILY 06/01/16 06/01/16 History Glucagon Emergency Kit 1 mg IM ONCE 06/01/16 06/01/16 History Multivit-Min/FA/Lycopene/Lut 1 each PO DAILY 06/01/16 06/01/16 History [Centrum Silver Tablet] Mupirocin 2% Oint [Bactroban 2% 1 applic TOPICAL DIRECTED 06/01/16 06/01/16 History Oint] Nystatin 100,000 Unit/gm Powd 1 applic TOPICAL BID 06/01/16 06/01/16 History [Mycostatin Powder] Triamcinolone 0.5% Cream [Kenalog 1 applic TOPICAL DAILY 06/01/16 06/01/16 History 0.5% Cream] Triamterene-Hctz 37.5-25Mg 1 tab PO DAILY 06/01/16 06/01/16 History [Maxzide 37.5-25] Venlafaxine HCl ER [Effexor Xr] 150 mg PO DAILY 06/01/16 06/01/16 History Allergies Allergy/AdvReac Type Severity Reaction Status Date / Time Penicillins Allergy Anaphylaxis Verified 06/01/16 10:26 Physical Exam Vitals: Vital Signs Temp Pulse Pulse Resp BP BP Pulse Ox 06/02/16 17:03 88 06/02/16 16:55 84 06/02/16 16:25 97.3 F L 75 20 125/60 96 06/02/16 10:00 98.5 F 06/02/16 09:30 80 06/02/16 09:16 76 06/02/16 08:15 81 24 134/59 98 06/02/16 00:25 100.5 F H 89 18 111/53 98 06/01/16 21:27 88 06/01/16 21:16 90 06/01/16 20:30 100.5 F H 86 14 159/65 97 Intake and Output 06/02/16 06/02/16 06/02/16 06:59 14:59 22:59 Intake Total 300 Output Total 1 Balance 300 -1 Intake: Oral 300 Output: Stool 1 Other: # Voids 1 1 1 # Bowel Movements 3 Pleasant [id number] woman who is modestly comfortable at this time. HEENT: Anicteric conjunctiva are pink and moist nasal mucosa grossly intact without significant lesions, there is no thrush. Neck: The neck is supple without significant lymphadenopathy or thyromegaly. Lungs: Symmetrical air entry is noted. Basilar crackles are heard. Expiratory wheezes are throughout the lung denney. No bronchial sounds are noted. No egophony or dullness. Heart: Regular rate and rhythm with an audible S1-S2, no S3 loud S4. There is no significant murmur click or rub, PMI was nondisplaced. Abdomen: Obese Positive bowel sounds soft and nontender without palpable masses or organomegaly. There was no guarding or rebound. Extremities: The upper extremities have excellent pulses they are symmetric, no significant petechiae or telangiectasia. No splinter hemorrhages were noted. The lower extremities have chronic edema no open ulcerations seen Neuro: Awake alert oriented to person place and time. There are no acute new gross focal sensory motor deficits. Results CBC & Chem 7: 06/02/16 06:26 06/02/16 06:26 Labs: Abnormal Lab Results - Last 24 Hours (Table) 06/02/16 06/02/16 06/02/16 Range/Units 00:22 06:26 06:26 RDW 16.0 H (11.5-15.5) % Plt Count 78 L (150-450) k/uL Chloride 110 H (98-107) mmol/L Glucose 194 H (74-99) mg/dL POC Glucose (mg/dL) 222 H (75-99) mg/dL Calcium 8.1 L (8.4-10.2) mg/dL Iron (37-170) ug/dL % Saturation (20-50) % Albumin 3.4 L (3.5-5.0) g/dL 06/02/16 06/02/16 06/02/16 Range/Units 07:14 07:52 11:00 RDW (11.5-15.5) % Plt Count (150-450) k/uL Chloride (98-107) mmol/L Glucose (74-99) mg/dL POC Glucose (mg/dL) 299 H 264 H 289 H (75-99) mg/dL Calcium (8.4-10.2) mg/dL Iron (37-170) ug/dL % Saturation (20-50) % Albumin (3.5-5.0) g/dL 06/02/16 06/02/16 Range/Units 15:35 17:15 RDW (11.5-15.5) % Plt Count (150-450) k/uL Chloride (98-107) mmol/L Glucose (74-99) mg/dL POC Glucose (mg/dL) 198 H (75-99) mg/dL Calcium (8.4-10.2) mg/dL Iron 32 L (37-170) ug/dL % Saturation 9.5 L (20-50) % Albumin (3.5-5.0) g/dL Microbiology - Last 24 Hours (Table) 06/01/16 13:39 Blood Culture - Preliminary Blood No Growth after 24 hours 06/01/16 12:00 Stool for WBCs - Final Stool 06/01/16 12:00 Stool Culture - Preliminary Stool Laboratory Results WBC 4.5 k/uL (3.8-10.6) 06/02/16 06:26 RBC 4.27 m/uL (3.80-5.40) 06/02/16 06:26 Hgb 12.2 gm/dL (11.4-16.0) 06/02/16 06:26 Hct 38.5 % (34.0-46.0) 06/02/16 06:26 MCV 90.1 fL (80.0-100.0) 06/02/16 06:26 MCH 28.7 pg (25.0-35.0) 06/02/16 06:26 MCHC 31.8 g/dL (31.0-37.0) 06/02/16 06:26 RDW 16.0 % (11.5-15.5) H 06/02/16 06:26 Plt Count 78 k/uL (150-450) L 06/02/16 06:26 Neutrophils % 64 % 06/02/16 06:26 Lymphocytes % 23 % 06/02/16 06:26 Monocytes % 5 % 06/02/16 06:26 Eosinophils % 5 % 06/02/16 06:26 Basophils % 1 % 06/02/16 06:26 Neutrophils # 2.9 k/uL (1.3-7.7) 06/02/16 06:26 Lymphocytes # 1.1 k/uL (1.0-4.8) 06/02/16 06:26 Monocytes # 0.2 k/uL (0-1.0) 06/02/16 06:26 Eosinophils # 0.2 k/uL (0-0.7) 06/02/16 06:26 Basophils # 0.0 k/uL (0-0.2) 06/02/16 06:26 Manual Slide Review Performed 06/02/16 06:26 Hypochromasia Slight 06/02/16 06:26 Poikilocytosis Slight 06/02/16 06:26 Anisocytosis Slight 06/02/16 06:26 PT 12.3 sec (9.0-12.0) H 06/01/16 01:25 INR 1.2 (<1.1) 06/01/16 01:25 APTT 25.6 sec (22.0-30.0) 06/01/16 01:25 Sodium 143 mmol/L (137-145) 06/02/16 06:26 Potassium 3.7 mmol/L (3.5-5.1) 06/02/16 06:26 Chloride 110 mmol/L (98-107) H 06/02/16 06:26 Carbon Dioxide 24 mmol/L (22-30) 06/02/16 06:26 Anion Gap 9 mmol/L 06/02/16 06:26 BUN 9 mg/dL (7-17) 06/02/16 06:26 Creatinine 0.68 mg/dL (0.52-1.04) 06/02/16 06:26 Est GFR (MDRD) Af Amer >60 (>60 ml/min/1.73 sqM) 06/02/16 06:26 Est GFR (MDRD) Non-Af >60 (>60 ml/min/1.73 sqM) 06/02/16 06:26 Glucose 194 mg/dL (74-99) H 06/02/16 06:26 POC Glucose (mg/dL) 198 mg/dL (75-99) H 06/02/16 17:15 POC Glu [employer] ID Antonia Moorebie 06/02/16 17:[address] Glu mg/dL 197 mg/dL 06/01/16 07:17 Hemoglobin A1c 8.5 % (4.2-6.1) H 06/01/16 07:17 Calcium 8.1 mg/dL (8.4-10.2) L 06/02/16 06:26 Phosphorus 3.4 mg/dL (2.5-4.5) 06/02/16 06:26 Magnesium 1.6 mg/dL (1.6-2.3) 06/02/16 06:26 Iron 32 ug/dL (37-170) L 06/02/16 15:35 TIBC 338 ug/dL (265-497) 06/02/16 15:35 % Saturation 9.5 % (20-50) L 06/02/16 15:35 Ferritin 66 ng/mL (11-264) 06/02/16 15:35 Total Bilirubin 1.0 mg/dL (0.2-1.3) 06/02/16 06:26 AST 34 U/L (14-36) 06/02/16 06:26 ALT 33 U/L (9-52) 06/02/16 06:26 Alkaline Phosphatase 96 U/L (38-126) 06/02/16 06:26 Total Creatine Kinase 59 U/L (30-135) 06/01/16 13:39 CK-MB (CK-2) 0.6 ng/mL (0.0-2.4) 06/01/16 13:39 CK-MB (CK-2) Rel Index 1.0 06/01/16 13:39 Troponin I <0.012 ng/mL (0.000-0.034) 06/01/16 13:39 Total Protein 7.2 g/dL (6.3-8.2) 06/02/16 06:26 Albumin 3.4 g/dL (3.5-5.0) L 06/02/16 06:26 Triglycerides 82 mg/dL (<150) 06/01/16 14:39 Amylase 33 U/L (30-110) 06/02/16 06:26 Lipase 86 U/L (23-300) 06/02/16 06:26 Urine Color Yellow 06/01/16 00:44 Urine Appearance Clear (Clear) 06/01/16 00:44 Urine pH 5.5 (5.0-8.0) 06/01/16 00:44 Ur Specific Esmond 1.019 (1.001-1.035) 06/01/16 00:44 Urine Protein Negative (Negative) 06/01/16 00:44 Urine Glucose (UA) Negative (Negative) 06/01/16 00:44 Urine Ketones Negative (Negative) 06/01/16 00:44 Urine Blood Trace (Negative) H 06/01/16 00:44 Urine Nitrate Negative (Negative) 06/01/16 00:44 Urine Bilirubin Negative (Negative) 06/01/16 00:44 Urine Urobilinogen 2.0 mg/dL (<2.0) 06/01/16 00:44 Ur Leukocyte Esterase Negative (Negative) 06/01/16 00:44 Urine RBC 3 /hpf (0-5) 06/01/16 00:44 Urine WBC 1 /hpf (0-5) 06/01/16 00:44 Ur Squamous Epith Cells 2 /hpf (0-4) 06/01/16 00:44 Urine Mucus Rare /hpf (None) H 06/01/16 00:44 Stl Cryptosporidium Ag Negative (Negative) 06/01/16 16:00 Stool Giardia Source Stool 06/01/16 16:00 Stl Giardia Antigen Negative (Negative) 06/01/16 16:00 C. difficile (EIA) Intrp Negative (Negative) 06/01/16 12:00 Hepatitis A IgM Ab NEGATIVE 06/02/16 06:26 Hep Bs Antigen Negative 06/02/16 06:26 Hep B Core IgM Ab NEGATIVE 06/02/16 06:26 Hep C IgG Ab Negative (Negative) 06/02/16 06:26 Influenza Type A RNA Not Detected (Not Detectd) 06/01/16 11:58 Influenza Type B (PCR) Not Detected (Not Detectd) 06/01/16 11:58 Miscellaneous Test Norovirus PCR 06/01/16 12:00 Misc Test Result See Comment 06/01/16 12:00 Microbiology 06/01/16 13:39 Blood Blood Culture - Preliminary No Growth after 24 hours 06/01/16 12:00 Stool Stool for WBCs - Final 06/01/16 12:00 Stool Stool Culture - Preliminary Assessment and Plan (1) Enteritis due to Norovirus Narrative/Plan: 60-year-old female who has a history of extensive underlying medical condition related to her superobesity and it's many complications. Presents to Hospital with significant increasing weakness associated with nausea emesis and profuse bouts of diarrhea. Diarrhea was watery and not melanotic or bloody. Testing is confirmed evidence of norovirus group 2. It is print him supportive care is all that we can do for the norovirus. Hydration and antidiarrheals are indicated. As she improves she can be discharged home with follow-up to ensure that her hydration and diarrhea remained under good control. She's been seen by gastroenterology for her markedly abnormal lipase at admission. The thought to potentially be an underlying metabolic problem from her superobesity. Workup for cirrhosis is in process. Viral hepatitis panel was negative. There is evidence of mild thrombocytopenia likely is in the bases of her chronic liver disease, she does have evidence of an enlarged spleen which likely is causing some of the splenic sequestration. No antibiotic therapy is indicated at this time. Status: Acute (2) Acute pancreatitis Status: Acute (3) Fever Status: Acute (4) Morbid obesity with BMI of 50.0-59.9, adult Status: Chronic (5) Cirrhosis of liver Status: Chronic
[2016-06-02 20:41] LABS: Glucose,Whole Blood 214 mg/dL (75-99)
[2016-06-02] MEDS: LATANOPROST 0.005% OPHTH DROPS 2.5 ML BTL BOTH EYES SCH (21:36)
[2016-06-03] MEDS: SODIUM CHLORIDE 0.9% 1,000 ML IV SCH ×4 (00:13→22:49)
[2016-06-03] MEDS: MECLIZINE 25 MG TAB PO SCH ×4 (00:14→21:23)
[2016-06-03 00:26] LABS: Glucose,Whole Blood 83 mg/dL (75-99)
[2016-06-03 06:40] LABS: Anisocytosis Slight; Basophils % (A) 1 %; CH 29.1; CHCM 33.1; Eosinophils # (A) 0.3 k/uL (0-0.7); Eosinophils % (A) 6 %; HCT 35.1 % (34.0-46.0); HDW 3.79; HGB 11.3 gm/dL (11.4-16.0); Hypochromasia Slight; Luc # (Auto) 0.13; Luc % (Auto) 3; Lymphocytes # (A) 1.1 k/uL (1.0-4.8); Lymphocytes % (A) 22 %; MCH 28.5 pg (25.0-35.0); MCHC 32.1 g/dL (31.0-37.0); MCV 88.8 fL (80.0-100.0); Mean Platelet Volume 8.5; Monocytes # (A) 0.3 k/uL (0-1.0); Monocytes % (A) 5 %; Neutrophils # (A) 3.2 k/uL (1.3-7.7); Neutrophils % (A) 64 %; Poikilocytosis Slight; RBC 3.96 m/uL (3.80-5.40); RDW 16.1 % (11.5-15.5); WBC 5.1 k/uL (3.8-10.6); WBC (Perox) 5.25
[2016-06-03] MEDS: LEVOTHYROXINE 75 MCG TAB PO SCH (06:41)
[2016-06-03 06:51] LABS: ALT 37 U/L (9-52); AST 30 U/L (14-36); Alkaline Phosphatase 86 U/L (38-126); Anion Gap 8 mmol/L; Blood Urea Nitrogen 9 mg/dL (7-17); Calcium 8.4 mg/dL (8.4-10.2); Carbon Dioxide 23 mmol/L (22-30); Chloride 113 mmol/L (98-107); Glucose 96 mg/dL (74-99); Non-African American GFR(MDRD) >60 (>60 ml/min/1.73 sqM); Potassium 4.2 mmol/L (3.5-5.1); Sodium 144 mmol/L (137-145); Total Bilirubin 0.5 mg/dL (0.2-1.3); Total Protein 6.3 g/dL (6.3-8.2)
[2016-06-03 07:46] LABS: Glucose,Whole Blood 85 mg/dL (75-99)
[2016-06-03] MEDS: INSULIN LISPRO (humaLOG) 300 UNIT/3 ML VIAL SQ SCH ×7 (08:22→21:19)
[2016-06-03] MEDS: ALBUTEROL NEBULIZED 2.5 MG/3 ML INHALATION SCH ×4 (10:10→19:32)
[2016-06-03] MEDS: ASPIRIN 81 MG CHEW PO SCH (10:20)
[2016-06-03] MEDS: FAMOTIDINE 20 MG TAB PO SCH (10:20)
[2016-06-03] MEDS: TRIAMTERENE-HCTZ 37.5-25MG 1 EACH TAB PO SCH (10:21)
[2016-06-03] MEDS: VENLAFAXINE HCL ER 150 MG CAP PO SCH (10:21)
[2016-06-03] MEDS: CYCLOBENZAPRINE 10 MG TAB PO SCH ×2 (10:21→21:23)
[2016-06-03] MEDS: MINERAL OIL-WHITE PETROLATUM 120 GM JAR TOPICAL SCH (10:21)
[2016-06-03] MEDS: NYSTATIN 100,000 UNIT/GM POWD 15 GM TOPICAL SCH ×2 (10:21→21:24)
[2016-06-03] MEDS: PREGABALIN 75 MG CAP PO SCH ×2 (10:21→21:22)
[2016-06-03] MEDS: LORATADINE 10 MG TAB PO SCH (10:22)
[2016-06-03] MEDS: INSULIN GLARGINE 100 UNIT/ML 10 ML VIAL SQ SCH ×2 (10:25→21:21)
--- NOTE | 2016-06-03 10:36 | PN ---
Alem Baker is a patient is a 60-year-old pleasant lady admitted to the hospital acute diarrhea. Subsequently she was diagnosed with Noro viral infection and since being in the hospital she is doing much better. The diarrhea has completely resolved and she had last bowel movement yesterday morning. At the time of admission to the hospital she had a CT of the abdomen and pelvis done that showed nodular ( ) suspicious for cirrhosis and hence, we are consulting ( ). The patient denies any prior history of chronic liver disease. She does have history of morbid obesity and diabetes mellitus of several years duration. Her diagnosed with chronic hepatitis C infection and 2 years ago. She is presently undergoing work-up for possible etiology of underlying cirrhosis of the liver, but most likely we are dealing with nonalcoholic fatty liver disease. She denies any abdominal pain. Reports no nausea vomiting. Reports no fever, chills, night sweats, hepatitis serologies for B and C were negative. On physical examination, she appears comfortable in no apparent distress. Vitals as are stable. Blood pressure is 139/65, pulse rate 76, temperature 97.9. HEENT examination unremarkable. Conjunctivae pink. Sclerae anicteric. Oral cavity, no lesions. NECK: No JVD or lymph node enlargement lymph node enlargement. CHEST: Clear to auscultation. HEART: Regular rate and rhythm. ABDOMEN: Soft. It was obese. Bowel sounds are positive. No organomegaly. EXTREMITIES: No pedal edema. SKIN: No rashes. NEURO: She is alert and oriented x3. No focal deficits. LABS: WBC 5.1, hemoglobin 11.3, platelets are 76,000. Hepatitis B and C are negative. Rest of the work-up is still pending. IMPRESSION: 1. Acute viral gastroenteritis secondary to noroviral infection, which appears to be resolving. Presently on symptomatic therapy for diarrhea. 2. Cirrhosis of the liver noted on recent imaging study with normal serum transaminases. The patient has no history of alcohol use. Hepatitis serologies for B and C negative. At this time most likely we are dealing with nonalcoholic fatty liver disease resulting in cirrhosis of the liver, which appears to be well compensated. Other work-up is still pending at the time of this dictation. RECOMMENDATIONS: 1. Await the rest of the work-up. 2. She was advised to follow up in the office in 1 to 2 weeks following discharge from the hospital and at this time we will discuss the lab results with the patient. Thank you for this consultation.
--- NOTE | 2016-06-03 10:56 | P.PN ---
Progress Note - Text The patient feels better. She still having some diarrhea. Her abdominal pain has improved dramatically. On exam her vital signs are stable. Her abdomen is obese soft with minimal tenderness. There is no rebound or guarding. The patient's lipase and amylase have returned to normal levels, her pancreatic tenderness has resolved. She is receiving supportive care for her norwac virus infection.
[2016-06-03 11:52] LABS: Glucose,Whole Blood 105 mg/dL (75-99)
[2016-06-03] MEDS: MULTIVITAMINS, THERA 1 EACH TAB PO SCH (12:34)
--- NOTE | 2016-06-03 13:21 | P.PN ---
Subjective Patient is doing well today. She is tolerating her diet. No bowel movement since last night. Objective - Vital Signs Vital signs: Vital Signs Temp 98.6 F 06/03/16 10:23 Pulse 80 06/03/16 10:23 Resp 19 06/03/16 10:23 BP 123/67 06/03/16 10:23 Pulse Ox 96 06/03/16 10:23 Intake & Output 06/02/16 06/03/16 06/03/16 18:59 06:59 18:59 Intake Total 300 240 Output Total 1 Balance 299 240 Intake: Oral 300 240 Output: Stool 1 Other: # Voids 1 1 1 # Bowel Movements 3 - Exam General: The patient is morbidly obese Eye: there is normal conjunctiva bilaterally. Neck: The neck is supple, there is no JVD. Cardiovascular: Normal S1-S2, no S3-S4, no murmurs. Respiratory: Lungs clear to auscultation bilaterally Gastrointestinal: Abdomen is soft, nontender Musculoskeletal: There is +1-2 pedal edema. Neurological:. Speech is normal. Skin: Skin is warm and dry - Labs CBC & Chem 7: 06/03/16 06:24 06/03/16 06:24 Labs: Abnormal Lab Results - Last 24 Hours (Table) 06/02/16 06/02/16 06/02/16 Range/Units 15:35 17:15 20:32 Hgb (11.4-16.0) gm/dL RDW (11.5-15.5) % Plt Count (150-450) k/uL Chloride (98-107) mmol/L POC Glucose (mg/dL) 198 H 214 H (75-99) mg/dL Iron 32 L (37-170) ug/dL % Saturation 9.5 L (20-50) % Albumin (3.5-5.0) g/dL 06/03/16 06/03/16 06/03/16 Range/Units 06:24 06:24 11:50 Hgb 11.3 L (11.4-16.0) gm/dL RDW 16.1 H (11.5-15.5) % Plt Count 76 L (150-450) k/uL Chloride 113 H (98-107) mmol/L POC Glucose (mg/dL) 105 H (75-99) mg/dL Iron (37-170) ug/dL % Saturation (20-50) % Albumin 3.0 L (3.5-5.0) g/dL Microbiology - Last 24 Hours (Table) 06/01/16 13:39 Blood Culture - Preliminary Blood No Growth after 24 hours Assessment and Plan Plan: 1. Acute viral enteritis with testing positive for normal virus. Improved clinically. 2. Acute pancreatitis: Exact etiology unclear. Patient is doing significantly better clinically. Note. She did have a computed tomography scan of the abdomen which showed possibly a mild pancreatitis. Denies any alcohol use. Triglyceride level normal. 3. Diabetes mellitus type 2: Resume patient's insulin continue sliding scale coverage. Hemoglobin A1c is 8.5. 4. Chronic thrombocytopenia: Exact etiology unclear. Continue to monitor. 5. Chronic left foot ulcer: Consult Dr. Nielsen. Patient is followed by Dr. Burleson outpatient wound care clinic 6. Hypothyroidism continue Synthroid 7. Essential hypertension: Blood pressure stable continue his current medications 8. History of bipolar 9. History of obstructive sleep apnea 10. Incidental finding of possible hepatic cirrhosis on computed tomography scan of the abdomen. Seen and evaluated by GI. Viral hepatitis screen negative. Further workup as an outpatient. Patient is medically cleared for discharge home. She said that she is unable to go home today secondary to family issues. She will be discharged home tomorrow.
[2016-06-03 17:15] LABS: Glucose,Whole Blood 89 mg/dL (75-99)
[2016-06-03 21:18] LABS: Glucose,Whole Blood 177 mg/dL (75-99)
[2016-06-03] MEDS: LATANOPROST 0.005% OPHTH DROPS 2.5 ML BTL BOTH EYES SCH (21:22)
[2016-06-04] MEDS: SODIUM CHLORIDE 0.9% 1,000 ML IV SCH ×2 (05:52→12:47)
[2016-06-04] MEDS: LEVOTHYROXINE 75 MCG TAB PO SCH (06:29)
[2016-06-04 06:52] LABS: Basophils # (A) 0.1 k/uL (0-0.2); Basophils % (A) 1 %; CH 28.9; CHCM 32.4; Eosinophils # (A) 0.4 k/uL (0-0.7); Eosinophils % (A) 6 %; HCT 39.1 % (34.0-46.0); HDW 3.78; HGB 12.4 gm/dL (11.4-16.0); Hypochromasia Slight; Luc # (Auto) 0.22; Luc % (Auto) 4; Lymphocytes # (A) 1.9 k/uL (1.0-4.8); Lymphocytes % (A) 30 %; MCH 28.5 pg (25.0-35.0); MCHC 31.7 g/dL (31.0-37.0); Mean Platelet Volume 8.5; Monocytes # (A) 0.3 k/uL (0-1.0); Monocytes % (A) 5 %; Neutrophils # (A) 3.6 k/uL (1.3-7.7); Neutrophils % (A) 55 %; Poikilocytosis Slight; RBC 4.34 m/uL (3.80-5.40); RDW 15.9 % (11.5-15.5); WBC 6.4 k/uL (3.8-10.6); WBC (Perox) 7.11
[2016-06-04 07:03] LABS: ALT 31 U/L (9-52); AST 30 U/L (14-36); Alkaline Phosphatase 83 U/L (38-126); Anion Gap 10 mmol/L; Blood Urea Nitrogen 11 mg/dL (7-17); Calcium 9.1 mg/dL (8.4-10.2); Carbon Dioxide 23 mmol/L (22-30); Chloride 111 mmol/L (98-107); Glucose 51 mg/dL (74-99); Non-African American GFR(MDRD) >60 (>60 ml/min/1.73 sqM); Potassium 4.1 mmol/L (3.5-5.1); Sodium 144 mmol/L (137-145); Total Bilirubin 0.6 mg/dL (0.2-1.3)
[2016-06-04 07:10] LABS: Glucose,Whole Blood 77 mg/dL (75-99)
[2016-06-04 08:08] VITALS: BP 124/40; RESP 18; TEMP 97.9
[2016-06-04] MEDS: INSULIN LISPRO (humaLOG) 300 UNIT/3 ML VIAL SQ SCH ×4 (08:24→13:20)
[2016-06-04] MEDS: MINERAL OIL-WHITE PETROLATUM 120 GM JAR TOPICAL SCH (08:55)
[2016-06-04] MEDS: NYSTATIN 100,000 UNIT/GM POWD 15 GM TOPICAL SCH (08:55)
[2016-06-04] MEDS: PREGABALIN 75 MG CAP PO SCH (08:57)
[2016-06-04] MEDS: MECLIZINE 25 MG TAB PO SCH (08:57)
[2016-06-04] MEDS: FAMOTIDINE 20 MG TAB PO SCH (08:58)
[2016-06-04] MEDS: CYCLOBENZAPRINE 10 MG TAB PO SCH (08:58)
[2016-06-04] MEDS: VENLAFAXINE HCL ER 150 MG CAP PO SCH (08:59)
[2016-06-04] MEDS: TRIAMTERENE-HCTZ 37.5-25MG 1 EACH TAB PO SCH (08:59)
[2016-06-04] MEDS: LORATADINE 10 MG TAB PO SCH (08:59)
[2016-06-04] MEDS: ASPIRIN 81 MG CHEW PO SCH (09:00)
[2016-06-04] MEDS: ALBUTEROL NEBULIZED 2.5 MG/3 ML INHALATION SCH ×2 (09:06→12:34)
[2016-06-04 09:16] VITALS: PULSE 78
--- NOTE | 2016-06-04 09:32 | PN ---
DATE OF SERVICE: 06/04/2016 Patient is a 60-year-old pleasant lady admitted to the hospital with Norovirus, acute viral gastroenteritis which is gradually improving. She did not have any diarrhea for the last 2 days. Continues to do well. She had a CT of the abdomen during hospitalization and was noted to have cirrhotic appearing liver and hence we are consulted. So far hepatitis serologies for B and C were negative. Iron studies were negative. All other work-up is still pending. She is asymptomatic. On physical examination, appears comfortable in no apparent distress. Vital signs are stable. Blood pressure is 124/56, pulse rate 76, temperature 97.3. HEENT: Unremarkable. Conjunctivae pink. Sclerae anicteric. Oral cavity, no lesions. NECK: No JVD or lymph node enlargement. Chest was clear to auscultation. HEART: Regular rate and rhythm. ABDOMEN: Soft. Bowel sounds are positive. No organomegaly. Obese. EXTREMITIES: No pedal edema. SKIN: No rashes. NEURO: Alert and oriented x3. No focal deficits. Labs from today: WBC 6.1, hemoglobin 12.4, platelets 102. Basic metabolic panel is within normal limits. IMPRESSION: 1. Cirrhosis of the liver noted on recent imaging studies in this lady with history of morbid obesity, possibly dealing with fatty liver disease. 2. Acute Norovirus, gastroenteritis, resolving. RECOMMENDATIONS: 1. Await complete work-up of cirrhosis of the liver for etiology. 2. Advance diet as tolerated. 3. She can be discharged home with outpatient follow up in 2 weeks.
--- NOTE | 2016-06-04 09:54 | P.PN ---
Progress Note - Text The patient remains stable. She denies any significant diarrhea. On exam her vital signs are stable. Her abdomen soft. Resolving peritonitis. Patient will be supported for her [place] virus infection.
[2016-06-04] MEDS: INSULIN GLARGINE 100 UNIT/ML 10 ML VIAL SQ SCH (10:03)
[2016-06-04 12:37] LABS: Glucose,Whole Blood 162 mg/dL (75-99)
--- NOTE | 2016-06-04 13:06 | P.DS ---
Providers Date of admission: 06/01/16 03:16 Expected date of discharge: 06/04/16 Attending physician: Sobeida Norris Consults: 06/01/16 13:47 Consult Physician Routine Consulting Provider: Chris Nielsen Consult Reason/Comments: diabetic foot ulcer Do you want consulting provider notified?: Yes 06/01/16 13:57 Consult Physician Routine Consulting Provider: Caden Ramesh Consult Reason/Comments: pancreatitis Do you want consulting provider notified?: Yes 06/02/16 11:00 Consult Physician Routine Consulting Provider: Liberty Barraza Consult Reason/Comments: possible hepatic cirrhosis Do you want consulting provider notified?: Yes Primary care physician: [facility] Course: 1. Acute viral enteritis with testing positive for normal virus. Improved clinically with supportive care 2. Acute pancreatitis: Exact etiology unclear. Patient is doing significantly better clinically. Note. She did have a computed tomography scan of the abdomen which showed possibly a mild pancreatitis. Denies any alcohol use. Triglyceride level normal. 3. Diabetes mellitus type 2: Resume patient's insulin continue sliding scale coverage. Hemoglobin A1c is 8.5. 4. Chronic thrombocytopenia: Exact etiology unclear. Continue to monitor. 5. Chronic left foot ulcer: Consult Dr. Nielsen. Patient is followed by Dr. Burleson outpatient wound care clinic 6. Hypothyroidism continue Synthroid 7. Essential hypertension: Blood pressure stable continue his current medications 8. History of bipolar 9. History of obstructive sleep apnea 10. Incidental finding of possible hepatic cirrhosis on computed tomography scan of the abdomen. Seen and evaluated by GI. Viral hepatitis screen negative. Further workup as an outpatient. Patient Condition at Discharge: Stable Plan - Discharge Summary Discharge Medication List Albuterol Inhaler [Ventolin Hfa Inhaler] 1 puff INHALATION RT-QID PRN 02/18/14 [ History] Cyclobenzaprine [Flexeril] 10 mg PO BID@999,209902/18/14 [History] Simvastatin [Zocor] 40 mg PO HS@209902/18/14 [History] metFORMIN HCL [Glucophage] 850 mg PO BID@999,209902/18/14 [History] Insulin Glargine [Lantus] 100 unit SQ DAILY@1000 07/12/14 [History] Cetirizine HCl 10 mg PO DAILY@1000 10/25/14 [History] HYDROcodone/APAP 10-325MG [[place] 10-325] 1 tab PO Q8H PRN 06/18/15 [History] INSULIN LISPRO (humaLOG) [humaLOG (formulary)] 25 unit SQ TID-W/MEALS 06/18/15 [ History] Pregabalin [Lyrica] 150 mg PO BID 06/19/15 [History] Albuterol Sulfate 2.5 mg INHALATION RT-QID 12/14/15 [History] Insulin Glargine [Lantus] 70 unit SQ HS 12/14/15 [History] Latanoprost Ophth [Xalatan 0.005%] 1 drop BOTH EYES HS 12/14/15 [History] Levothyroxine Sodium 75 mcg PO DAILY 12/14/15 [History] Meclizine [Antivert] 25 mg PO TID #20 tab 12/22/15 [Rx] Amino Acids/Protein Hydrolys [Pro-Stat Supplement] 300 ml PO BID 05/04/16 [ History] Aspirin EC [Ecotrin Low Dose] 81 mg PO DAILY 06/01/16 [History] Colloidal Oatmeal [Eucerin Eczema Relief] 1 applic TOPICAL DAILY 06/01/16 [ History] Diclofenac Sodium [Voltaren Gel] 2 gram TOPICAL TID 06/01/16 [History] Glucagon Emergency Kit 1 mg IM ONCE 06/01/16 [History] Mupirocin 2% Oint [Bactroban 2% Oint] 1 applic TOPICAL DIRECTED 06/01/16 [ History] Nystatin 100,000 Unit/gm Powd [Mycostatin Powder] 1 applic TOPICAL BID 06/01/16 [History] Triamcinolone 0.5% Cream [Kenalog 0.5% Cream] 1 applic TOPICAL DAILY 06/01/16 [ History] Triamterene-Hctz 37.5-25Mg [Maxzide 37.5-25] 1 tab PO DAILY 06/01/16 [History] Venlafaxine HCl ER [Effexor XR] 150 mg PO DAILY 06/01/16 [History] Follow up Appointment(s)/Referral(s): Liberty Barraza MD [STAFF PHYSICIAN] - 2 Weeks Lilibeth Seymour MD [Primary Care Provider] - 1-2 days Patient Instructions/Handouts: Gastroenteritis (GEN) Discharge Disposition: HOME SELF-CARE
[2016-06-04] MEDS: MULTIVITAMINS, THERA 1 EACH TAB PO SCH (13:23)
== END 2016-06-04 15:10 | disposition home or self-care (01) ==
LOC: EC 00:27 → INTOOBSV 03:16 → 6PED 03:16
PROVIDERS: ADMIT Internal Medicine; ATTEND Internal Medicine
DX: A08.11 Acute gastroenteropathy due to Norwalk agent (principal); K85.90 Acute pancreatitis without necrosis or infection, unspecified; E11.621 Type 2 diabetes mellitus with foot ulcer; D69.6 Thrombocytopenia, unspecified; E11.69 Type 2 diabetes mellitus with other specified complication; L97.529 Non-pressure chronic ulcer of other part of left foot with unspecified severity; E03.9 Hypothyroidism, unspecified; E78.5 Hyperlipidemia, unspecified; F12.90 Cannabis use, unspecified, uncomplicated; F32.9 Major depressive disorder, single episode, unspecified; F60.3 Borderline personality disorder; G47.33 Obstructive sleep apnea (adult) (pediatric); H40.9 Unspecified glaucoma; I10 Essential (primary) hypertension; I86.8 Varicose veins of other specified sites; J44.9 Chronic obstructive pulmonary disease, unspecified; J45.909 Unspecified asthma, uncomplicated; K74.60 Unspecified cirrhosis of liver; K76.0 Fatty (change of) liver, not elsewhere classified; Z79.4 Long term (current) use of insulin; Z82.49 Family history of ischemic heart disease and other diseases of the circulatory system; Z85.41 Personal history of malignant neoplasm of cervix uteri; Z87.891 Personal history of nicotine dependence; Z79.1 Long term (current) use of non-steroidal anti-inflammatories (NSAID); Z79.899 Other long term (current) drug therapy; Z88.0 Allergy status to penicillin
CPT/HCPCS: 99285; 96374; 96361; 36415; 94640 ×7; 93005; 80053 ×4; 80074; 82728; 82150 ×2; 83036; 82550; 82553; 83540; 83550; 83690 ×2; 83735 ×2; 84100; 84478; 84484; 85025 ×4; 85610; 85730; 81001; 87040; 87324; 87798; 83516; 82103; 82105; 84165; 82390; 86038; 87045; 87329; 87328; 89055; 87046; 87502; 71020; 74177; G0378 ×4; Q9967; J0131; 96376

== ENCOUNTER 2016-07-02 12:02 | Emergency (ER) | payer OTHER ==
[2016-07-02 12:22] VITALS: RESP 18
[2016-07-02] MEDS ORDERED: PROPARACAINE 0.5% OPHTH DROPS 15 ML BTL RIGHT EYE STA (12:54)
--- NOTE | 2016-07-02 13:08 | ED ---
General Adult HPI - General Chief complaint: Eye Problems Stated complaint: EYE, SWOLLEN/LESION, SCRATCH, SORE ON LEFT FOOT Time Seen by Provider: 07/02/16 12:41 Source: patient Mode of arrival: wheelchair Limitations: no limitations - History of Present Illness Initial comments: 60-year-old female patient presents to emergency parents state with complaints of right eye discomfort, clear drainage, and eye pain. Patient states that 2 days ago she has been with her grandchild when they accidentally scratched her right eye. Patient states it has been difficult to open, light sensitive, and painful since. Patient is unsure if she has any visual changes because she is unable to open her eye without extreme discomfort. Patient denies any purulent drainage. She is also concerned about a wound to her left lateral foot. Patient states she does get treatment at the wound Center for diabetic foot ulcers. She states that she just completed treatment for a wound in the same spot. She has not gotten her new shoes and compression stockings and noticed a wound there yesterday. Patient states it is draining, she denies any pain to the foot. She denies any fever, chills, chest pain, shortness of breath, or any other symptoms. - Related Data Home Medications Medication Instructions Recorded Confirmed Albuterol Inhaler [Ventolin Hfa 1 puff INHALATION RT-QID PRN 02/18/14 07/02/16 Inhaler] Cyclobenzaprine [Flexeril] 10 mg PO BID@1000,209902/18/14 07/02/16 Simvastatin [Zocor] 40 mg PO HS@209902/18/14 07/02/16 metFORMIN HCL [Glucophage] 850 mg PO BID@02/18/14 07/02/16 Insulin Glargine [Lantus] 100 unit SQ DAILY@1000 07/12/14 07/02/16 Cetirizine HCl 10 mg PO DAILY@1000 10/25/14 07/02/16 HYDROcodone/APAP 10-325MG [[place] 1 tab PO Q8H PRN 06/18/15 07/02/16 10-325] INSULIN LISPRO (humaLOG) [humaLOG 25 unit SQ TID-W/MEALS 06/18/15 07/02/16 (formulary)] Pregabalin [Lyrica] 150 mg PO BID 06/19/15 07/02/16 Albuterol Sulfate 2.5 mg INHALATION RT-QID 12/14/15 07/02/16 Insulin Glargine [Lantus] 70 unit SQ HS 12/14/15 07/02/16 Latanoprost Ophth [Xalatan 0.005%] 1 drop BOTH EYES HS 12/14/15 07/02/16 Levothyroxine Sodium 75 mcg PO DAILY 12/14/15 07/02/16 Amino Acids/Protein Hydrolys 300 ml PO BID 05/04/16 07/02/16 [Pro-Stat Supplement] Aspirin EC [Ecotrin Low Dose] 81 mg PO DAILY 06/01/16 07/02/16 Colloidal Oatmeal [Eucerin Eczema 1 applic TOPICAL DAILY 06/01/16 07/02/16 Relief] Nystatin 100,000 Unit/gm Powd 1 applic TOPICAL BID 06/01/16 07/02/16 [Mycostatin Powder] Previous Rx's Medication Instructions Recorded Meclizine [Antivert] 25 mg PO TID #20 tab 12/22/15 Cephalexin [Keflex] 500 mg PO Q6HR #40 cap 07/02/16 Fluconazole [Diflucan] 150 mg PO ONCE #4 tab 07/02/16 SILVER sulfADIAZINE CREAM 1 applic TOPICAL DAILY #30 gram 07/02/16 [Silvadene Cream] Allergies Allergy/AdvReac Type Severity Reaction Status Date / Time Penicillins Allergy Anaphylaxis Verified 07/02/16 12:50 Review of Systems ROS Statement: Those systems with pertinent positive or pertinent negative responses have been documented in the HPI. ROS Other: All systems not noted in ROS Statement are negative. Past Medical History Past Medical History: Asthma, Cancer, COPD, Diabetes Mellitus, Eye Disorder, Hyperlipidemia, Musculoskeletal Disorder, Neurologic Disorder, Osteoarthritis ( OA), Sleep Apnea/CPAP/BIPAP, Thyroid Disorder Additional Past Medical History / Comment(s): History of osteomyelitis left #3 toe and left calf: 2004. History of Any Multi-Drug Resistant Organisms: None Reported Past Surgical History: Section, Cholecystectomy, Hysterectomy, Orthopedic Surgery, Tonsillectomy, Tubal Ligation Additional Past Surgical History / Comment(s): cataracts and laser surgery for glaucoma. Multiple I&D to left foot and lower leg. Past Anesthesia/Blood Transfusion Reactions: No Reported Reaction Past Psychological History: Bipolar, Depression Additional Psychological History / Comment(s): Borderline personality Smoking Status: Former smoker Past Alcohol Use History: None Reported Additional Past Alcohol Use History / Comment(s): Patient was a smoker of 2 packs per day for 21 years and quit in 1992. She does use marijuana on occasional basis. She denies any medical marijuana card. She denies any alcohol use or abuse. She is currently living at home and one adult son is living with her. She has been on disability. She is mostly wheelchair bound. Medically disabled. No international travel. No animals in the home. Daughter with her child and child's father live in the basement of the home. The child has been ill with diarrhea. Also had a fever Past Drug Use History: Marijuana - Past Family History Father Family Medical History: Congestive Heart Failure (CHF), Coronary Artery Disease (CAD), Myocardial Infarction ([place]) Mother Family Medical History: Coronary Artery Disease (CAD), CVA/TIA, Dementia, Myocardial Infarction ([place]) General Exam Limitations: no limitations General appearance: alert, in no apparent distress Head exam: Present: atraumatic, normocephalic, normal inspection Eye exam: Present: normal appearance, PERRL, EOMI, conjunctival injection ( Right eye), other (2 drops of proparacaine instilled into the right eye, fluorescein stain reveals a corneal abrasion between 8 and 9 o'clock on the right eye.). Absent: scleral icterus, periorbital swelling ENT exam: Present: normal exam, mucous membranes moist Neck exam: Present: normal inspection. Absent: tenderness, meningismus, lymphadenopathy Respiratory exam: Present: normal lung sounds bilaterally. Absent: respiratory distress, wheezes, rales, rhonchi, stridor Cardiovascular Exam: Present: regular rate, normal rhythm, normal heart sounds. Absent: systolic murmur, diastolic murmur, rubs, gallop, clicks Extremities exam: Present: full ROM, normal capillary refill, other (Oval- shaped ulcer noted to left lateral forefoot. Purulent drainage noted. No surrounding erythema.). Absent: tenderness, pedal edema, joint swelling, calf tenderness Back exam: Present: normal inspection Neurological exam: Present: alert, oriented X3, CN II-XII intact Psychiatric exam: Present: normal affect, normal mood Skin exam: Present: warm, dry, intact, normal color. Absent: rash Course Vital Signs 07/02/16 12:17 Temperature 98.7 F Pulse Rate 81 Respiratory 18 Rate Blood Pressure 132/76 O2 Sat by Pulse 97 Oximetry Medical Decision Making - Medical Decision Making 60-year-old female patient presented for evaluation of right eye pain and left foot wound. Fluorescein staining revealed a corneal abrasion. Placed on tobramycin ophthalmic solution. Left foot wound appears to be a diabetic ulcer. There is some purulent drainage the patient will be placed on a ten-day course of Keflex. Patient instructed to call Wound Center tomorrow for an appointment. Discharge return for any new, worsening, or concerning symptoms. The patient instructed to follow up with her primary care physician Y2 days or recheck patient verbalizes understanding and agrees this plan. Disposition Clinical Impression: Diabetic foot ulcer, Corneal abrasion Disposition: HOME SELF-CARE Condition: Stable Instructions: Corneal Abrasion (ED), Diabetic Foot Ulcers (ED) Prescriptions: Cephalexin [Keflex] 500 mg PO Q6HR #40 cap Fluconazole [Diflucan] 150 mg PO ONCE #4 tab SILVER sulfADIAZINE CREAM [Silvadene Cream] 1 applic TOPICAL DAILY #30 gram Referrals: Lilibeth Seymour MD [Primary Care Provider] - 1-2 days Time of Disposition: 13:42
[2016-07-02] MEDS ORDERED: TOBRAMYCIN 0.3% OPHTH DROPS 5 ML BTL RIGHT EYE STA (13:36)
--- NOTE | 2016-07-02 13:39 | XR ---
EXAMINATION TYPE: XR foot complete LT DATE OF EXAM: 07/02/2016 1:25 PM COMPARISON: 04/27/2016 HISTORY: Foot pain and open wound TECHNIQUE: Three views are submitted. FINDINGS: Sclerosis and cortical irregularity is again noted at the proximal fifth metatarsal. There is associa manuela soft tissue swelling. Postop changes noted to the third metatarsal is stable. Post amputation nandini nge is noted. There is a plantar calcaneal spur. Arthropathy of the DIP and DIP joints with greatest involvement involving the first digit. Calcaneal spurs noted. IMPRESSION: 1. Chronic changes with no new destructive changes seen to suggest osteomyelitis. Diffuse soft tissue s thickening likely on the basis of edema and possible cellulitis.
[2016-07-02 14:04] LABS: Glucose,Whole Blood 172 mg/dL (75-99)
[2016-07-02 14:11] VITALS: BP 145/92; PULSE 78; TEMP 98.9
== END 2016-07-02 14:11 | disposition home or self-care (01) ==
LOC: EC 12:02
DX: S05.01XA Injury of conjunctiva and corneal abrasion without foreign body, right eye, initial encounter (principal); E11.621 Type 2 diabetes mellitus with foot ulcer; J45.909 Unspecified asthma, uncomplicated; J44.9 Chronic obstructive pulmonary disease, unspecified; E78.5 Hyperlipidemia, unspecified; E07.9 Disorder of thyroid, unspecified; M19.90 Unspecified osteoarthritis, unspecified site; Z87.891 Personal history of nicotine dependence; Z79.82 Long term (current) use of aspirin; Z79.4 Long term (current) use of insulin; Z79.899 Other long term (current) drug therapy; Z88.0 Allergy status to penicillin; Z86.69 Personal history of other diseases of the nervous system and sense organs; Z98.890 Other specified postprocedural states; X58.XXXA Exposure to other specified factors, initial encounter
CPT/HCPCS: 36415; 99283

== ENCOUNTER 2016-09-17 12:53 | Emergency (ER) | payer OTHER ==
[2016-09-17 12:57] VITALS: TEMP 98.5
[2016-09-17] MEDS ORDERED: LEVOFLOXACIN 750MG-D5W PMX 750 MG in DEXTROSE/WATER 1 150ML.BAG IVPB STA (13:48)
--- NOTE | 2016-09-17 13:53 | ED ---
General Adult HPI - General Chief complaint: Wound/Laceration Stated complaint: L foot infection Time Seen by Provider: 09/17/16 13:00 Source: patient, RN notes reviewed Mode of arrival: wheelchair Limitations: physical limitation - History of Present Illness Initial comments: This is a 60-year-old female who presents to the emergency department with a past history of diabetes and long-standing left foot ulcer. Patient states she had a wound on the left lateral aspect of her foot but since yesterday she has noticed that there is a little bit of redness around the wound. Patient denies any fever patient denies any drainage patient denies any fluctuance. Patient states she was not wearing shoes which don't know how it opened up since yesterday. Patient states she checks it every 12 hours. Patient denies any other problems patient denies any injury or trauma that she knows of. Patient does states she has neuropathy so she might have done something to it not noted. Patient states however the wound is been there quite a long time he just got a little bit worse since yesterday. - Related Data Home Medications Medication Instructions Recorded Confirmed Albuterol Inhaler [Ventolin Hfa 1 puff INHALATION RT-QID PRN 02/18/14 09/17/16 Inhaler] Cyclobenzaprine [Flexeril] 10 mg PO BID@1000,209902/18/14 09/17/16 Simvastatin [Zocor] 40 mg PO HS@209902/18/14 09/17/16 metFORMIN HCL [Glucophage] 850 mg PO BID@1000,209902/18/14 09/17/16 Insulin Glargine [Lantus] 100 unit SQ DAILY@1000 07/12/14 09/17/16 Cetirizine HCl 10 mg PO DAILY@1000 10/25/14 09/17/16 HYDROcodone/APAP 10-325MG [[place] 1 tab PO Q8H PRN 06/18/15 09/17/16 10-325] INSULIN LISPRO (humaLOG) [humaLOG 30 unit SQ TID-W/MEALS 06/18/15 09/17/16 (formulary)] Pregabalin [Lyrica] 150 mg PO BID 06/19/15 09/17/16 Albuterol Sulfate 2.5 mg INHALATION RT-QID 12/14/15 09/17/16 Insulin Glargine [Lantus] 80 unit SQ HS 12/14/15 09/17/16 Latanoprost Ophth [Xalatan 0.005%] 1 drop BOTH EYES HS 12/14/15 09/17/16 Levothyroxine Sodium 75 mcg PO DAILY 12/14/15 09/17/16 Aspirin EC [Ecotrin Low Dose] 81 mg PO DAILY 06/01/16 09/17/16 Nystatin 100,000 Unit/gm Powd 1 applic TOPICAL BID 06/01/16 09/17/16 [Mycostatin Powder] Previous Rx's Medication Instructions Recorded Levofloxacin [Levaquin] 750 mg PO DAILY #10 tab 09/17/16 Allergies Allergy/AdvReac Type Severity Reaction Status Date / Time Penicillins Allergy Anaphylaxis Verified 09/17/16 13:46 Review of Systems ROS Statement: Those systems with pertinent positive or pertinent negative responses have been documented in the HPI. ROS Other: All systems not noted in ROS Statement are negative. Past Medical History Past Medical History: Asthma, Cancer, COPD, Diabetes Mellitus, Eye Disorder, Hyperlipidemia, Musculoskeletal Disorder, Neurologic Disorder, Osteoarthritis ( OA), Sleep Apnea/CPAP/BIPAP, Thyroid Disorder Additional Past Medical History / Comment(s): History of osteomyelitis left #3 toe and left calf: 2004. History of Any Multi-Drug Resistant Organisms: None Reported Past Surgical History: Section, Cholecystectomy, Hysterectomy, Orthopedic Surgery, Tonsillectomy, Tubal Ligation Additional Past Surgical History / Comment(s): cataracts and laser surgery for glaucoma. Multiple I&D to left foot and lower leg. Past Anesthesia/Blood Transfusion Reactions: No Reported Reaction Past Psychological History: Bipolar, Depression Smoking Status: Former smoker Past Alcohol Use History: None Reported Past Drug Use History: Marijuana - Past Family History Father Family Medical History: Congestive Heart Failure (CHF), Coronary Artery Disease (CAD), Myocardial Infarction ([place]) Mother Family Medical History: Coronary Artery Disease (CAD), CVA/TIA, Dementia, Myocardial Infarction ([place]) General Exam - General Exam Comments Initial Comments: GENERAL Patient is well-developed and well-nourished. Patient is in mild distress. EYES Patient's pupils are equal and round. Extraocular motion is intact SKIN Unremarkable NEURO The patient is alert and oriented 3 PYSCH Patient has normal interpersonal interactions. MUSCULOSKELETAL Left lateral aspect of the foot has a small opening wound which is consistent with a pressure wound. It is about half a centimeter in diameter and there is very mild erythema around the wound measuring about another half a centimeter around the whole wound. There is no area of fluctuance is no drainage the area does not feel warm. Limitations: physical limitation Course Vital Signs 09/17/16 12:55 Temperature 98.5 F Pulse Rate 84 Respiratory 20 Rate Blood Pressure 127/58 O2 Sat by Pulse 98 Oximetry Disposition Clinical Impression: Foot ulcer, left Disposition: HOME SELF-CARE Condition: Good Instructions: Pressure Ulcer (ED) Additional Instructions: Patient should follow-up with the wound clinic as soon as possible. Patient should not wear any tight fitting shoes. Patient states the antibiotics as prescribed. Patient should put on topical antibiotics as well. Prescriptions: Levofloxacin [Levaquin] 750 mg PO DAILY #10 tab Referrals: Lilibeth Seymour MD [Primary Care Provider] - 1-2 days Time of Disposition: 13:52
[2016-09-17 15:23] LABS: Glucose,Whole Blood 171 mg/dL (75-99)
[2016-09-17 16:09] VITALS: BP 139/65; PULSE 82; RESP 15
== END 2016-09-17 16:24 | disposition home or self-care (01) ==
LOC: EC 12:53
DX: L97.529 Non-pressure chronic ulcer of other part of left foot with unspecified severity (principal); E78.5 Hyperlipidemia, unspecified; E11.9 Type 2 diabetes mellitus without complications; J45.909 Unspecified asthma, uncomplicated; M19.90 Unspecified osteoarthritis, unspecified site; E07.9 Disorder of thyroid, unspecified; H57.9 Unspecified disorder of eye and adnexa; Z87.891 Personal history of nicotine dependence; Z79.4 Long term (current) use of insulin; Z79.82 Long term (current) use of aspirin; Z79.84 Long term (current) use of oral hypoglycemic drugs; Z79.899 Other long term (current) drug therapy; Z88.0 Allergy status to penicillin
CPT/HCPCS: 36415; 87040; 87070; 87205; 99283; 96365; 96366; J1956; 87077; 87186

== ENCOUNTER 2016-11-10 10:27 | Emergency (ER) | payer OTHER ==
[2016-11-10 10:54] VITALS: BP 193/84; PULSE 89; RESP 18; TEMP 97.9
--- NOTE | 2016-11-10 11:06 | ED ---
General Adult HPI - General Chief complaint: Extremity Problem,Nontraumatic Stated complaint: Sent by PCP, Shoulder pain/Numbness Time Seen by Provider: 11/10/16 10:55 Source: patient Mode of arrival: wheelchair Limitations: no limitations - History of Present Illness Initial comments: Patient is a morbidly obese 60-year-old female who presents the ED for evaluation of tingling sensation in her left back, side radiating to her breast. She describes the sensation as being similar to the sensation she has when her leg falls asleep, however she states that the sensation developed approximately 3-5 days ago. She reports the sensation begins at the midline of her back travels under her scapula around her side and radiates into her breast where she is experiencing a burning sensation. Patient denies any recent back injury. She denies any weakness of the left arm, or mechanical back pain. She denies any chest pain, difficulty breathing, nausea or vomiting. Patient states that she saw her primary care physician yesterday but had forgotten about the symptoms and did not discuss them with him at that time. She reports she called her primary care physician back this morning and advised of the symptoms she was having and was told to come to the emergency department for further evaluation. - Related Data Home Medications Medication Instructions Recorded Confirmed Albuterol Inhaler [Ventolin Hfa 1 puff INHALATION RT-QID PRN 02/18/14 10/26/16 Inhaler] Cyclobenzaprine [Flexeril] 10 mg PO BID@1000,209902/18/14 10/26/16 Simvastatin [Zocor] 40 mg PO HS@209902/18/14 10/26/16 metFORMIN HCL [Glucophage] 850 mg PO BID@999,209902/18/14 10/26/16 Insulin Glargine [Lantus] 100 unit SQ DAILY@1000 07/12/14 10/26/16 Cetirizine HCl 10 mg PO DAILY@1000 10/25/14 10/26/16 HYDROcodone/APAP 10-325MG [[place] 1 tab PO Q8H PRN 06/18/15 10/26/16 10-325] INSULIN LISPRO (humaLOG) [humaLOG 30 unit SQ TID-W/MEALS 06/18/15 10/26/16 (formulary)] Pregabalin [Lyrica] 150 mg PO BID 06/19/15 10/26/16 Albuterol Sulfate 2.5 mg INHALATION RT-QID 12/14/15 10/26/16 Insulin Glargine [Lantus] 80 unit SQ HS 12/14/15 10/26/16 Latanoprost Ophth [Xalatan 0.005%] 1 drop BOTH EYES HS 12/14/15 10/26/16 Levothyroxine Sodium 75 mcg PO DAILY 12/14/15 10/26/16 Aspirin EC [Ecotrin Low Dose] 81 mg PO DAILY 06/01/16 10/26/16 Nystatin 100,000 Unit/gm Powd 1 applic TOPICAL BID 06/01/16 10/26/16 [Mycostatin Powder] Previous Rx's Medication Instructions Recorded valACYclovir HCL [Valacyclovir] 1,000 mg PO TID #21 tab 11/10/16 Allergies Allergy/AdvReac Type Severity Reaction Status Date / Time Penicillins Allergy Anaphylaxis Verified 11/10/16 10:54 Review of Systems ROS Statement: Those systems with pertinent positive or pertinent negative responses have been documented in the HPI. ROS Other: All systems not noted in ROS Statement are negative. Constitutional: Denies: fever, chills Eyes: Denies: vision change ENT: Denies: throat pain Respiratory: Denies: cough, dyspnea, wheezes, hemoptysis Cardiovascular: Denies: chest pain, palpitations, dyspnea on exertion Endocrine: Denies: fatigue Gastrointestinal: Reports: diarrhea, constipation (History of IBS with occasional constipation and diarrhea). Denies: abdominal pain, nausea, vomiting Genitourinary: Denies: urgency, dysuria Musculoskeletal: Reports: arthralgia (Chronic knee pain). Denies: back pain Skin: Reports: pruritus (Tingling and itching sensation as described in HPI). Denies: rash, lesions, change in color, change in hair/nails Neurological: Reports: paresthesias. Denies: headache, weakness, numbness, confusion, abnormal gait, vertigo Psychiatric: Denies: anxiety, depression Hematological/Lymphatic: Denies: easy bleeding, easy bruising Past Medical History Past Medical History: Asthma, Cancer, COPD, Diabetes Mellitus, Eye Disorder, Hyperlipidemia, Musculoskeletal Disorder, Neurologic Disorder, Osteoarthritis ( OA), Sleep Apnea/CPAP/BIPAP, Thyroid Disorder Additional Past Medical History / Comment(s): History of osteomyelitis left #3 toe and left calf: 2004. History of Any Multi-Drug Resistant Organisms: None Reported Past Surgical History: Section, Cholecystectomy, Hysterectomy, Orthopedic Surgery, Tonsillectomy, Tubal Ligation Additional Past Surgical History / Comment(s): cataracts and laser surgery for glaucoma. Multiple I&D to left foot and lower leg. Past Anesthesia/Blood Transfusion Reactions: No Reported Reaction Past Psychological History: Bipolar, Depression Smoking Status: Former smoker Past Alcohol Use History: None Reported Past Drug Use History: None Reported - Past Family History Father Family Medical History: Congestive Heart Failure (CHF), Coronary Artery Disease (CAD), Myocardial Infarction ([place]) Mother Family Medical History: Coronary Artery Disease (CAD), CVA/TIA, Dementia, Myocardial Infarction ([place]) General Exam Limitations: no limitations General appearance: alert, in no apparent distress, obese Head exam: Present: atraumatic, normocephalic, normal inspection Eye exam: Present: normal appearance, PERRL, EOMI. Absent: scleral icterus, conjunctival injection, periorbital swelling ENT exam: Present: normal exam, mucous membranes moist Neck exam: Present: normal inspection. Absent: tenderness, meningismus, lymphadenopathy Respiratory exam: Present: normal lung sounds bilaterally. Absent: respiratory distress, wheezes, rales, rhonchi, stridor, chest wall tenderness, accessory muscle use Cardiovascular Exam: Present: regular rate, normal rhythm, normal heart sounds. Absent: systolic murmur, diastolic murmur, rubs, gallop, clicks GI/Abdominal exam: Present: soft, normal bowel sounds. Absent: distended, tenderness, guarding, rebound, rigid Rectal exam: Present: deferred Extremities exam: Present: normal inspection, full ROM, normal capillary refill , pedal edema (Chronic anemic consistent with venous stasis, patient's legs and compression stockings). Absent: tenderness, joint swelling, calf tenderness Back exam: Present: normal inspection, full ROM, other (I am able to track with my fingers the area that the patient reports she is feeling the tingling sensation, it follows the T10 dermatome from the mid spine to the breast). Absent: tenderness, CVA tenderness (R), CVA tenderness (L), muscle spasm, paraspinal tenderness, vertebral tenderness, rash noted Neurological exam: Present: alert, oriented X3, CN II-XII intact, reflexes normal Psychiatric exam: Present: normal affect, normal mood Skin exam: Present: warm, dry, intact, normal color. Absent: rash Course Vital Signs 11/10/16 10:50 Temperature 97.9 F Pulse Rate 89 Respiratory 18 Rate Blood Pressure 193/84 O2 Sat by Pulse 96 Oximetry Medical Decision Making - Medical Decision Making She was seen and evaluated, history is obtained from the patient and review of past medical records Patient reports experiencing paresthesias from the midline of her back around into her right breast. She denies any mechanical back pain or recent traumas. She denies any weaknesses in the arm or side. Physical exam revealed no acute findings, no rashes, no spinal tenderness. A discussion with the patient about the possibilities that this was herpetic neuralgia from shingles. Patient has no history of shingles however based on the location of the sensation, the dermatomal tract I am concerned that she may be developing shingles. Patient's breast significant concern because she is the primary caregiver for her [id number] granddaughter. I contacted the patient's primary care physician to discuss the differential diagnosis, he states that he knows the patient very well and agrees this does sound very much like it could be developing shingles. He agrees with treatment plan for valtrex 3 times a day for 7 days. He will see the patient office on Sunday. All questions pertaining to care were answered to the best of my ability. I advised the patient that though there is no definitive diagnosis I have a high suspicion for shingles and feel that she would benefit from treatment, especially because treatment will decreased transmitted ability if she does develop shingles. Patient agreeable to plan for empiric treatment for shingles and discharged home. Patient was given very specific instructions to return for any acute worsening, development of any weakness on one side or the other. I also advised the patient to feel free to return to the ED over the weekend if she does develop a rash for reevaluation. Patient expressed understanding and agreement with plan and was discharged home with prescription for Valtrex. Disposition Clinical Impression: Paresthesia Disposition: HOME SELF-CARE Condition: Good Instructions: Shingles (ED), Paresthesia (ED) Prescriptions: valACYclovir HCL [Valacyclovir] 1,000 mg PO TID #21 tab Referrals: Lilibeth Seymour MD [Primary Care Provider] - 11/13/16 Time of Disposition: 11:10
== END 2016-11-10 11:28 | disposition home or self-care (01) ==
LOC: EC 10:27
DX: R20.2 Paresthesia of skin (principal); E11.9 Type 2 diabetes mellitus without complications; M19.90 Unspecified osteoarthritis, unspecified site; E78.5 Hyperlipidemia, unspecified; E07.9 Disorder of thyroid, unspecified; J44.9 Chronic obstructive pulmonary disease, unspecified; E66.01 Morbid (severe) obesity due to excess calories; Z68.43 Body mass index [BMI] 50.0-59.9, adult; Z87.891 Personal history of nicotine dependence; Z88.0 Allergy status to penicillin; Z79.4 Long term (current) use of insulin; Z79.82 Long term (current) use of aspirin; Z79.84 Long term (current) use of oral hypoglycemic drugs; Z79.899 Other long term (current) drug therapy
CPT/HCPCS: 99283

== ENCOUNTER 2016-11-19 19:37 | Inpatient (IN) | payer OTHER ==
[2016-11-19] MEDS ORDERED: SODIUM CHLORIDE 0.9% 1,000 ML IV STA (20:10)
--- NOTE | 2016-11-19 20:12 | ED ---
General Adult HPI <Ba Woodruff - Last Filed: 11/19/16 22:18> - General Source: patient, family, RN notes reviewed Mode of arrival: ambulatory Limitations: no limitations <Heide Garcia - Last Filed: 11/19/16 22:21> - General Chief complaint: Skin/Abscess/Foreign Body Stated complaint: right leg pain Time Seen by Provider: 11/19/16 20:03 - History of Present Illness Initial comments: 60-year-old female presents to the emergency Department chief complaint of redness swelling and draining wound to the right leg. Patient states that she noticed some swelling to the right leg and a small cut there for the past few days. They state they've been lotion states now more red swollen and they've noticed some drainage from the area. Patient states that a low-grade fever at home. Patient denies any nausea or vomiting. Patient does admit to a history of diabetes. Patient is concerned because she doesn't normally have pretty severe infections. Patient states that her whole right lateral knee is swollen so she thought that she should be seen. Patient denies any recent shortness of breath, chest pain, back pain, abdominal pain, nausea vomiting, numbness or tingling, dysuria or hematuria, constipation or diarrhea, headaches or visual changes, or any other current symptoms. (Heide Garcia) - Related Data Home Medications Medication Instructions Recorded Confirmed Albuterol Inhaler [Ventolin Hfa 1 puff INHALATION RT-QID PRN 02/18/14 11/19/16 Inhaler] Cyclobenzaprine [Flexeril] 10 mg PO BID@999,209902/18/14 11/19/16 Simvastatin [Zocor] 40 mg PO HS@209902/18/14 11/19/16 metFORMIN HCL [Glucophage] 850 mg PO BID@999,209902/18/14 11/19/16 Insulin Glargine [Lantus] 100 unit SQ QAM@99907/12/14 11/19/16 Cetirizine HCl 10 mg PO DAILY@99910/25/14 11/19/16 HYDROcodone/APAP 10-325MG [[place] 1 tab PO Q8H PRN 06/18/15 11/19/16 10-325] INSULIN LISPRO (humaLOG) [humaLOG 30 unit SQ TID-W/MEALS 06/18/15 11/19/16 (formulary)] Pregabalin [Lyrica] 150 mg PO BID 06/19/15 11/19/16 Albuterol Sulfate 2.5 mg INHALATION RT-QID PRN 12/14/15 11/19/16 Insulin Glargine [Lantus] 80 unit SQ HS 12/14/15 11/19/16 Latanoprost Ophth [Xalatan 0.005%] 1 drop BOTH EYES HS 12/14/15 11/19/16 Aspirin EC [Ecotrin Low Dose] 81 mg PO DAILY 06/01/16 11/19/16 Levothyroxine Sodium [Synthroid] 88 mcg PO DAILY 11/19/16 11/19/16 Triamterene-Hctz 37.5-25Mg 1 cap PO DAILY 11/19/16 11/19/16 [Dyazide 37.5-25 Capsule] Previous Rx's Medication Instructions Recorded valACYclovir HCL [Valacyclovir] 1,000 mg PO TID #21 tab 11/10/16 Allergies Allergy/AdvReac Type Severity Reaction Status Date / Time Penicillins Allergy Anaphylaxis Verified 11/19/16 20:51 Review of Systems ROS Other: All systems not noted in ROS Statement are negative. <Ba Woodruff - Last Filed: 11/19/16 22:18> ROS Other: All systems not noted in ROS Statement are negative. <Heide Garcia - Last Filed: 11/19/16 22:21> ROS Statement: Those systems with pertinent positive or pertinent negative responses have been documented in the HPI. Past Medical History Past Medical History: Asthma, Cancer, COPD, Diabetes Mellitus, Eye Disorder, Hyperlipidemia, Musculoskeletal Disorder, Neurologic Disorder, Osteoarthritis ( OA), Sleep Apnea/CPAP/BIPAP, Thyroid Disorder Additional Past Medical History / Comment(s): History of osteomyelitis left #3 toe and left calf: 2004. History of Any Multi-Drug Resistant Organisms: None Reported Past Surgical History: Section, Cholecystectomy, Hysterectomy, Orthopedic Surgery, Tonsillectomy, Tubal Ligation Additional Past Surgical History / Comment(s): cataracts and laser surgery for glaucoma. Multiple I&D to left foot and lower leg. Past Anesthesia/Blood Transfusion Reactions: No Reported Reaction Past Psychological History: Bipolar, Depression Smoking Status: Former smoker Past Alcohol Use History: None Reported Past Drug Use History: None Reported - Past Family History Father Family Medical History: Congestive Heart Failure (CHF), Coronary Artery Disease (CAD), Myocardial Infarction ([place]) Mother Family Medical History: Coronary Artery Disease (CAD), CVA/TIA, Dementia, Myocardial Infarction ([place]) <Heide Garcia - Last Filed: 11/19/16 22:21> General Exam <Ba Woodruff - Last Filed: 11/19/16 22:18> Limitations: no limitations <Heide Garcia - Last Filed: 11/19/16 22:21> - General Exam Comments Initial Comments: General: The patient is awake and alert, in no distress, and does not appear acutely ill. Neck: The neck is supple, there is no tenderness or JVD. Cardiovascular: There is a regular rate and rhythm. No murmur, rub or gallop is appreciated. Respiratory: Lungs are clear to auscultation, respirations are non-labored, breath sounds are equal. No wheezes, stridor, rales, or rhonchi. Musculoskeletal: Sensation intact with 2+ pulses throughout the reduction. Range of motion right knee and ankle. There is 2+ pitting edema to the right lower externa with a small laceration that does have purulent-like discharge.N II-XII intact, There are no obvious motor or sensory deficits. Coordination appears grossly intact. Speech is normal. Skin: Skin is warm and dry and no rashes or lesions are noted. Psychiatric: Normal mood and affect. (Heide Garcia) Medical Decision Making - Lab Data Result diagrams: 11/19/16 20:38 11/19/16 20:38 <Ba Woodruff - Last Filed: 11/19/16 22:18> - Lab Data Result diagrams: 11/19/16 20:38 11/19/16 20:38 - Radiology Data Radiology results: report reviewed, image reviewed <Heide Garcia - Last Filed: 11/19/16 22:21> - Medical Decision Making Case discussed with Dr. Seymour, patient admitted to his service, started on IV antibiotics for cellulitis , the patient has diabetes. Dr. Woodruff (Ba Woodruff) 60-year-old female presents for appears to alert 70 cellulitis. We'll start patient on IV antibiotics. This was discussed with Dr. Seymour does agree to the admission. Family is in agreement with plan. (Heide Garcia) - Lab Data Lab Results 11/19/16 11/19/16 11/19/16 Range/Units 20:38 20:38 20:38 WBC 7.1 (3.8-10.6) k/uL RBC 4.68 (3.80-5.40) m/uL Hgb 13.7 (11.4-16.0) gm/dL Hct 42.2 (34.0-46.0) % MCV 90.3 (80.0-100.0) fL MCH 29.2 (25.0-35.0) pg MCHC 32.4 (31.0-37.0) g/dL RDW 17.2 H (11.5-15.5) % Plt Count 82 L (150-450) k/uL Neutrophils % 71 % Lymphocytes % 18 % Monocytes % 4 % Eosinophils % 5 % Basophils % 1 % Neutrophils # 5.0 (1.3-7.7) k/uL Lymphocytes # 1.3 (1.0-4.8) k/uL Monocytes # 0.3 (0-1.0) k/uL Eosinophils # 0.4 (0-0.7) k/uL Basophils # 0.0 (0-0.2) k/uL Manual Slide Review Performed Poikilocytosis Slight Anisocytosis Slight Sodium 140 (137-145) mmol/L Potassium 4.3 (3.5-5.1) mmol/L Chloride 104 (98-107) mmol/L Carbon Dioxide 25 (22-30) mmol/L Anion Gap 11 mmol/L BUN 15 (7-17) mg/dL Creatinine 0.60 (0.52-1.04) mg/dL Est GFR (MDRD) Af Amer >60 (>60 ml/min/1.73 sqM) Est GFR (MDRD) Non-Af >60 (>60 ml/min/1.73 sqM) Glucose 244 H (74-99) mg/dL Plasma Lactic Acid Marquise (0.7-2.0) mmol/L Calcium 9.1 (8.4-10.2) mg/dL Total Bilirubin 0.5 (0.2-1.3) mg/dL AST 28 (14-36) U/L ALT 28 (9-52) U/L Alkaline Phosphatase 91 (38-126) U/L Total Protein 7.0 (6.3-8.2) g/dL Albumin 3.7 (3.5-5.0) g/dL Urine Color Yellow Urine Appearance Clear (Clear) Urine pH 6.0 (5.0-8.0) Ur Specific [place] 1.013 (1.001-1.035) Urine Protein Negative (Negative) Urine Glucose (UA) Trace H (Negative) Urine Ketones Negative (Negative) Urine Blood Negative (Negative) Urine Nitrite Negative (Negative) Urine Bilirubin Negative (Negative) Urine Urobilinogen <2.0 (<2.0) mg/dL Ur Leukocyte Esterase Negative (Negative) Acetone, Qual Negative (Negative) 11/19/16 Range/Units 20:38 WBC (3.8-10.6) k/uL RBC (3.80-5.40) m/uL Hgb (11.4-16.0) gm/dL Hct (34.0-46.0) % MCV (80.0-100.0) fL MCH (25.0-35.0) pg MCHC (31.0-37.0) g/dL RDW (11.5-15.5) % Plt Count (150-450) k/uL Neutrophils % % Lymphocytes % % Monocytes % % Eosinophils % % Basophils % % Neutrophils # (1.3-7.7) k/uL Lymphocytes # (1.0-4.8) k/uL Monocytes # (0-1.0) k/uL Eosinophils # (0-0.7) k/uL Basophils # (0-0.2) k/uL Manual Slide Review Poikilocytosis Anisocytosis Sodium (137-145) mmol/L Potassium (3.5-5.1) mmol/L Chloride (98-107) mmol/L Carbon Dioxide (22-30) mmol/L Anion Gap mmol/L BUN (7-17) mg/dL Creatinine (0.52-1.04) mg/dL Est GFR (MDRD) Af Amer (>60 ml/min/1.73 sqM) Est GFR (MDRD) Non-Af (>60 ml/min/1.73 sqM) Glucose (74-99) mg/dL Plasma Lactic Acid [place] 1.6 (0.7-2.0) mmol/L Calcium (8.4-10.2) mg/dL Total Bilirubin (0.2-1.3) mg/dL AST (14-36) U/L ALT (9-52) U/L Alkaline Phosphatase (38-126) U/L Total Protein (6.3-8.2) g/dL Albumin (3.5-5.0) g/dL Urine Color Urine Appearance (Clear) Urine pH (5.0-8.0) Ur Specific [place] (1.001-1.035) Urine Protein (Negative) Urine Glucose (UA) (Negative) Urine Ketones (Negative) Urine Blood (Negative) Urine Nitrite (Negative) Urine Bilirubin (Negative) Urine Urobilinogen (<2.0) mg/dL Ur Leukocyte Esterase (Negative) Acetone, Qual (Negative) Disposition <Ba Woodruff - Last Filed: 11/19/16 22:18> Time of Disposition: 22:21 Decision Date: 11/19/16 Decision Time: 22:21 <Heide Garcia - Last Filed: 11/19/16 22:21> Clinical Impression: Cellulitis of right lower extremity Disposition: ADMITTED IP TO THIS HOSP Condition: Stable Referrals: Lilibeth Seymour MD [Primary Care Provider] - 1-2 days
[2016-11-19 20:56] LABS: Anisocytosis Slight; Basophils % (A) 1 %; CHCM 33.5; Eosinophils # (A) 0.4 k/uL (0-0.7); Eosinophils % (A) 5 %; HCT 42.2 % (34.0-46.0); HDW 3.64; HGB 13.7 gm/dL (11.4-16.0); Luc % (Auto) 1; Lymphocytes # (A) 1.3 k/uL (1.0-4.8); Lymphocytes % (A) 18 %; MCH 29.2 pg (25.0-35.0); MCHC 32.4 g/dL (31.0-37.0); MCV 90.3 fL (80.0-100.0); Mean Platelet Volume 9.7; Monocytes # (A) 0.3 k/uL (0-1.0); Monocytes % (A) 4 %; Neutrophils % (A) 71 %; Poikilocytosis Slight; RBC 4.68 m/uL (3.80-5.40); RDW 17.2 % (11.5-15.5); WBC 7.1 k/uL (3.8-10.6); WBC (Perox) 6.85
[2016-11-19 20:58] LABS: Appearance,Urine Clear (Clear); Bilirubin,Urine Negative (Negative); Glucose,Urine (UA) Trace (Negative); Ketones,Urine Negative (Negative); Leukocyte Esterase,Urine Negative (Negative); Nitrite,Urine Negative (Negative); Protein,Urine Negative (Negative); Specific Gravity,Urine 1.013 (1.001-1.035); UA Billing (MACRO vs. MICRO) CHEM; Urobilinogen,Urine <2.0 mg/dL (<2.0)
[2016-11-19 21:07] LABS: ALT 28 U/L (9-52); AST 28 U/L (14-36); Alkaline Phosphatase 91 U/L (38-126); Anion Gap 11 mmol/L; Blood Urea Nitrogen 15 mg/dL (7-17); Calcium 9.1 mg/dL (8.4-10.2); Carbon Dioxide 25 mmol/L (22-30); Chloride 104 mmol/L (98-107); Glucose 244 mg/dL (74-99); Non-African American GFR(MDRD) >60 (>60 ml/min/1.73 sqM); Potassium 4.3 mmol/L (3.5-5.1); Sodium 140 mmol/L (137-145); Total Bilirubin 0.5 mg/dL (0.2-1.3)
[2016-11-19 21:23] LABS: Manual Review Performed
--- NOTE | 2016-11-19 21:57 | XR ---
EXAMINATION TYPE: XR tibia fibula RT DATE OF EXAM: 11/19/2016 COMPARISON: NONE HISTORY: Leg pain TECHNIQUE: 4 views FINDINGS: There are plantar and Achilles calcaneal spurs. The tibia and fibula appear intact. There i s subcutaneous edema around the calf. IMPRESSION: Subcutaneous edema. No fracture. No sign of osteomyelitis.
[2016-11-19] MEDS ORDERED: ONDANSETRON 4 MG/2 ML VIAL IVP PRN (22:21)
[2016-11-19] MEDS ORDERED: NALOXONE 0.4 MG/ML 1 ML VIAL IV PRN (22:21)
[2016-11-19] MEDS ORDERED: ACETAMINOPHEN TAB 325 MG TAB PO PRN (22:21)
[2016-11-19] MEDS ORDERED: IBUPROFEN 400 MG TAB PO PRN (22:21)
[2016-11-19] MEDS ORDERED: ALBUTEROL NEBULIZED 2.5 MG/3 ML INHALATION PRN ×2 (22:23)
[2016-11-19] MEDS ORDERED: IV VANCOMYCIN PER PHARMACY 1 EACH MISC MISCELLANE PRN (22:24)
[2016-11-19] MEDS: SODIUM CHLORIDE 0.9% 1,000 ML IV SCH (23:23)
[2016-11-19] MEDS: VANCOMYCIN 2,000 MG in SODIUM CHLORIDE 0.9% 500 ML IVPB SCH (23:23)
[2016-11-19] MEDS: HYDROcodone/APAP 10-325MG 1 EACH TAB PO PRN (23:27)
[2016-11-20] MEDS: INSULIN LISPRO (humaLOG) 300 UNIT/3 ML VIAL SQ SCH ×6 (07:23→21:40)
[2016-11-20 07:24] LABS: Glucose,Whole Blood 115 mg/dL (75-99)
[2016-11-20 08:17] LABS: Anisocytosis Slight; Basophils # (A) 0.1 k/uL (0-0.2); Basophils % (A) 1 %; CH 29.7; CHCM 32.4; Eosinophils # (A) 0.4 k/uL (0-0.7); Eosinophils % (A) 5 %; HCT 37.1 % (34.0-46.0); HDW 3.61; Hypochromasia Slight; Luc # (Auto) 0.12; Luc % (Auto) 2; Lymphocytes # (A) 1.4 k/uL (1.0-4.8); Lymphocytes % (A) 19 %; MCH 29.8 pg (25.0-35.0); MCHC 32.3 g/dL (31.0-37.0); MCV 92.3 fL (80.0-100.0); Mean Platelet Volume 8.8; Monocytes # (A) 0.4 k/uL (0-1.0); Monocytes % (A) 5 %; Neutrophils # (A) 5.1 k/uL (1.3-7.7); Neutrophils % (A) 69 %; Poikilocytosis Slight; RBC 4.02 m/uL (3.80-5.40); RDW 16.8 % (11.5-15.5); WBC 7.3 k/uL (3.8-10.6); WBC (Perox) 7.38
[2016-11-20 08:34] LABS: ALT 27 U/L (9-52); AST 26 U/L (14-36); Alkaline Phosphatase 78 U/L (38-126); Anion Gap 9 mmol/L; Blood Urea Nitrogen 14 mg/dL (7-17); Calcium 8.5 mg/dL (8.4-10.2); Carbon Dioxide 25 mmol/L (22-30); Chloride 108 mmol/L (98-107); Glucose 107 mg/dL (74-99); Non-African American GFR(MDRD) >60 (>60 ml/min/1.73 sqM); Sodium 142 mmol/L (137-145); Total Bilirubin 0.5 mg/dL (0.2-1.3); Total Protein 6.2 g/dL (6.3-8.2)
[2016-11-20] MEDS: LEVOTHYROXINE 88 MCG TAB PO SCH (08:46)
[2016-11-20] MEDS: LORATADINE 10 MG TAB PO SCH (08:46)
[2016-11-20] MEDS: ASPIRIN 81 MG CHEW PO SCH (08:46)
[2016-11-20] MEDS: valACYclovir HCL 1,000 MG TABLET PO SCH ×3 (08:46→21:39)
[2016-11-20] MEDS: CYCLOBENZAPRINE 10 MG TAB PO SCH ×2 (08:46→21:39)
[2016-11-20] MEDS: metFORMIN 850 MG TAB PO SCH ×2 (08:46→21:39)
[2016-11-20] MEDS: TRIAMTERENE-HCTZ 37.5-25MG 1 EACH CAP PO SCH (08:47)
[2016-11-20] MEDS: HYDROcodone/APAP 10-325MG 1 EACH TAB PO PRN ×2 (08:49→17:52)
[2016-11-20] MEDS: PREGABALIN 75 MG CAP PO SCH ×2 (08:49→21:40)
[2016-11-20] MEDS: SODIUM CHLORIDE 0.9% 1,000 ML IV SCH ×2 (08:50→17:56)
[2016-11-20] MEDS: VANCOMYCIN 2,000 MG in SODIUM CHLORIDE 0.9% 500 ML IVPB SCH ×2 (11:05→22:57)
--- NOTE | 2016-11-20 11:06 | P.HPIM ---
History of Present Illness H&P Date: 11/20/16 Chief Complaint: Right leg redness and pain This is a 60-year-old female who has a known past medical history of diabetes, diabetic foot ulcers, osteomyelitis of the left foot, morbid obesity, COPD, hyperlipidemia, obstructive sleep apnea, bipolar and hypothyroidism. Patient presents to the emergency room with complaints of increased redness and burning sensation along the right tibia. She reports a small blister on the right tibia that popped open with a greenish discharge. She came into the emergency room for further evaluation and treatment she has been admitted to the hospital for right lower extremity cellulitis. Patient does report pain with palpation of bilateral calves a venous Doppler has been ordered. She's followed up with Dr. Nielsen at the wound care center for her healed left diabetic foot ulcer. She's been started on IV vancomycin. She's also given IV fluids. X-ray of the right tibia-fibula shows no evidence of any osteomyelitis or fracture does show subcutaneous edema. Patient does admit to having some chills and low-grade temps at home. She denies any nausea vomiting. Denies any bowel movement changes or urinary symptoms. Review of Systems Please refer to HPI otherwise unremarkable Past Medical History Past Medical History: Asthma, Cancer, COPD, Diabetes Mellitus, Eye Disorder, Hyperlipidemia, Musculoskeletal Disorder, Neurologic Disorder, Osteoarthritis ( OA), Sleep Apnea/CPAP/BIPAP, Thyroid Disorder Additional Past Medical History / Comment(s): History of osteomyelitis left #3 toe and left calf: 2004. History of Any Multi-Drug Resistant Organisms: None Reported Past Surgical History: Section, Cholecystectomy, Hysterectomy, Orthopedic Surgery, Tonsillectomy, Tubal Ligation Additional Past Surgical History / Comment(s): cataracts and laser surgery for glaucoma. Multiple I&D to left foot and lower leg. Past Anesthesia/Blood Transfusion Reactions: No Reported Reaction Past Psychological History: Bipolar, Depression Additional Psychological History / Comment(s): Borderline personality Smoking Status: Former smoker Past Alcohol Use History: None Reported Additional Past Alcohol Use History / Comment(s): Patient was a smoker of 2 packs per day for 21 years and quit in 1992. She does use marijuana on occasional basis. She denies any medical marijuana card. She denies any alcohol use or abuse. She is currently living at home and one adult son is living with her. She has been on disability. She is mostly wheelchair bound. Medically disabled. No international travel. No animals in the home. Daughter with her child and child's father live in the basement of the home. The child has been ill with diarrhea. Also had a fever Past Drug Use History: None Reported - Past Family History Father Family Medical History: Congestive Heart Failure (CHF), Coronary Artery Disease (CAD), Myocardial Infarction ([place]) Mother Family Medical History: Coronary Artery Disease (CAD), CVA/TIA, Dementia, Myocardial Infarction ([place]) Medications and Allergies Home Medications Medication Instructions Recorded Confirmed Type Albuterol Inhaler [Ventolin Hfa 1 puff INHALATION RT-QID PRN 02/18/14 11/19/16 History Inhaler] Cyclobenzaprine [Flexeril] 10 mg PO BID@1000,209902/18/14 11/19/16 History Simvastatin [Zocor] 40 mg PO HS@209902/18/14 11/19/16 History metFORMIN HCL [Glucophage] 850 mg PO BID@1000,209902/18/14 11/19/16 History Insulin Glargine [Lantus] 100 unit SQ QAM@1000 07/12/14 11/19/16 History Cetirizine HCl 10 mg PO DAILY@1000 10/25/14 11/19/16 History HYDROcodone/APAP 10-325MG [[place] 1 tab PO Q8H PRN 06/18/15 11/19/16 History 10-325] INSULIN LISPRO (humaLOG) [humaLOG 30 unit SQ TID-W/MEALS 06/18/15 11/19/16 History (formulary)] Pregabalin [Lyrica] 150 mg PO BID 06/19/15 11/19/16 History Albuterol Sulfate 2.5 mg INHALATION RT-QID PRN 12/14/15 11/19/16 History Insulin Glargine [Lantus] 80 unit SQ HS 12/14/15 11/19/16 History Latanoprost Ophth [Xalatan 0.005%] 1 drop BOTH EYES HS 12/14/15 11/19/16 History Aspirin EC [Ecotrin Low Dose] 81 mg PO DAILY 06/01/16 11/19/16 History Levothyroxine Sodium [Synthroid] 88 mcg PO DAILY 11/19/16 11/19/16 History Triamterene-Hctz 37.5-25Mg 1 cap PO DAILY 11/19/16 11/19/16 History [Dyazide 37.5-25 Capsule] Allergies Allergy/AdvReac Type Severity Reaction Status Date / Time Penicillins Allergy Anaphylaxis Verified 11/19/16 20:51 Physical Exam Vitals: Vital Signs Temp Pulse Pulse Resp BP BP Pulse Ox 11/20/16 07:00 98.0 F 79 18 125/69 96 11/19/16 23:00 97.2 F L 86 18 128/75 97 11/19/16 22:40 98.8 F 76 18 134/60 98 11/19/16 22:38 98.8 F 76 18 134/60 98 11/19/16 19:38 99.1 F 74 18 142/60 100 Intake and Output 11/19/16 11/20/16 11/20/16 22:59 06:59 14:59 Intake Total 300 Balance 300 Intake: Oral 300 Other: Voiding Method Toilet # Voids 1 Weight 150.593 kg 155 kg Head normocephalic Neck supple Lungs clear to auscultation bilaterally no wheezing or crackles Heart regular rate and rhythm S1-S2, no rub or gallop Abdomen is soft nontender nondistended positive bowel sounds no hepatosplenomegaly Extremities right lower extremity +1 edema there is erythema along the right tibia. Warm to touch. Small blister that is now scabbed over along the lateral aspect of the right tibia. No drainage present at this time. Left leg presence of edema and tenderness with palpation of the left calf. Neuro alert and orientated to 3 Results CBC & Chem 7: 11/20/16 07:35 11/20/16 07:41 Labs: Abnormal Lab Results - Last 24 Hours (Table) 11/19/16 11/19/16 11/19/16 Range/Units 20:38 20:38 20:38 RDW 17.2 H (11.5-15.5) % Plt Count 82 L (150-450) k/uL Chloride (98-107) mmol/L Glucose 244 H (74-99) mg/dL POC Glucose (mg/dL) (75-99) mg/dL Total Protein (6.3-8.2) g/dL Albumin (3.5-5.0) g/dL Urine Glucose (UA) Trace H (Negative) 11/20/16 11/20/16 11/20/16 Range/Units 07:20 07:35 07:41 RDW 16.8 H (11.5-15.5) % Plt Count 83 L (150-450) k/uL Chloride 108 H (98-107) mmol/L Glucose 107 H (74-99) mg/dL POC Glucose (mg/dL) 115 H (75-99) mg/dL Total Protein 6.2 L (6.3-8.2) g/dL Albumin 3.1 L (3.5-5.0) g/dL Urine Glucose (UA) (Negative) Microbiology - Last 24 Hours (Table) 11/19/16 20:38 Wound Culture - Preliminary Leg - Right Thrombosis Risk Factor Assmnt - Choose All That Apply Any of the Below Risk Factors Present?: Yes Each Factor Represents 1 point: Abnormal pulmonary function (COPD), Age 41-60 years, Obesity (BMI >25), Swollen legs (current) Other Risk Factors: Yes Each Risk Factor Represents 3 Points: Family history of DVT/PE Other congenital or acquired thrombophilia - If yes, enter type in comment: No Thrombosis Risk Factor Assessment Total Risk Factor Score: 7 Thrombosis Risk Factor Assessment Level: High Risk Assessment and Plan Plan: 1. Right lower extremity cellulitis: Patient has been started on IV vancomycin. Continue with IV fluids. ID consult has been placed. X-ray of the right tibia-fibula shows no evidence of vasculitis or fracture it is showing subcutaneous edema. Check bilateral lower extremity venous Dopplers to rule out DVT. 2. Mild protein calorie malnutrition: Start Glucerna shakes 3. Chronic thrombocytopenia: Patient near baseline 4. Diabetes mellitus type 2: Blood sugar 107 this morning currently her Lantus was held in the emergency room. We'll monitor blood sugars continue sliding scale coverage and metformin. And will adjust insulin as needed. 5. Previous history of diabetic foot ulcer and osteomyelitis requiring wound care services 6. History of bipolar 7. Hyperlipidemia continue Lipitor 8. Hypothyroidism continue Synthroid DVT prophylaxis subcu heparin Time with Patient: Greater than 30 (Greater than 50% of the total time spent in counseling and coordination of care.I performed an examination of the patient and discussed their management with the physician Skin Pass Operator. I have reviewed the Physician Skin Pass Operator's notes and agree with the documented findings and plan of care)
--- NOTE | 2016-11-20 12:19 | US ---
EXAMINATION TYPE: US venous doppler duplex LE DATE OF EXAM: 11/20/2016 12:03 PM COMPARISON: NONE CLINICAL HISTORY: Pain in both legs. Rule out DVT. Pain and edema right leg. Cellulitis bilateral lo wer legs SIDE PERFORMED: Bilateral TECHNIQUE: The lower extremity deep venous system is examined utilizing real time linear array sonog michelle with graded compression, doppler sonography and color-flow sonography. VESSELS IMAGED: External Iliac Vein (EIV) Common Femoral Vein Deep Femoral Vein Greater Saphenous Vein * Femoral Vein Popliteal Vein Small Saphenous Vein * Proximal Calf Veins (* superficial vessels) Technical limitations due to patient's body habitus Right Leg: No evidence of DVT as visualized Left Leg: No evidence of DVT as visualized IMPRESSION: 1. No deep venous thrombosis lower extremities.
[2016-11-20 12:27] LABS: Glucose,Whole Blood 222 mg/dL (75-99)
--- NOTE | 2016-11-20 14:42 | P.CONS ---
History of Present Illness - Reason for Consult Consult date: 11/20/16 Right lower extremity cellulitis - History of Present Illness This is a 60-year-old female well known to ID service as she has been seen in the past of the wound center for diabetic wound ulcer to the left foot with osteomyelitis and abscess and most recently for left foot wound in September 2016 which she states has completely healed. She denies any injury to the right leg and she usually has her son of my lotion daily. She states on Sunday, her son was rubbing her legs and everything seemed to be fine but when she woke up on Sunday she felt the area was different. His skin was positive and when she touched it opened up and started draining. She states she 's had low-grade fever and chills for the last couple of days she denies any change in her appetite. No nausea, vomiting, diarrhea. She does complain of constipation. She has also been on Valtrex for the past week for shingles in her right back radiating around to her right breast. She came into the [facility] emergency center. She is been afebrile with white count of 7.3. Wound culture is showing gram-positive cocci in clusters. Noted platelet count is an 82 but she appears to run in the 80s. She had ultrasound that was negative for DVT bilaterally. Tib-fib x-ray shows some cutaneous in edema with no fracture and no osteomyelitis. Patient is also complaining of right ear infection for which she is using eardrops and advised her son to bring these in. Patient is tearful at the end of the evaluation as she is concerned that she will lose her right lower leg. Regarding her diabetes, patient states that her hemoglobin A1c is down to 8.8 which is down from 11 Review of Systems All systems: negative Constitutional: Reports chills, Reports fever, Denies anorexia, Denies poor appetite Eyes: denies blurred vision, denies pain Ears, nose, mouth and throat: Denies headache, Denies sore throat Cardiovascular: Denies chest pain, Denies shortness of breath Respiratory: Denies cough Gastrointestinal: Denies abdominal pain, Denies diarrhea, Denies nausea, Denies vomiting Genitourinary: Denies dysuria, Denies hematuria Musculoskeletal: Denies myalgias Integumentary: Reports wounds, Denies pruritus, Denies rash Neurological: Denies numbness, Denies weakness Psychiatric: Denies anxiety, Denies depression Endocrine: Denies fatigue, Denies weight change Past Medical History Past Medical History: Asthma, Cancer, COPD, Diabetes Mellitus, Eye Disorder, Hyperlipidemia, Musculoskeletal Disorder, Neurologic Disorder, Osteoarthritis ( OA), Sleep Apnea/CPAP/BIPAP, Thyroid Disorder Additional Past Medical History / Comment(s): History of osteomyelitis left #3 toe and left calf: 2004. History of Any Multi-Drug Resistant Organisms: None Reported Past Surgical History: Section, Cholecystectomy, Hysterectomy, Orthopedic Surgery, Tonsillectomy, Tubal Ligation Additional Past Surgical History / Comment(s): cataracts and laser surgery for glaucoma. Multiple I&D to left foot and lower leg. Past Anesthesia/Blood Transfusion Reactions: No Reported Reaction Past Psychological History: Bipolar, Depression Additional Psychological History / Comment(s): Borderline personality Smoking Status: Former smoker Past Alcohol Use History: None Reported Additional Past Alcohol Use History / Comment(s): Patient was a smoker of 2 packs per day for 21 years and quit in 1992. She does use marijuana on occasional basis. She denies any medical marijuana card. She denies any alcohol use or abuse. She is currently living at home and one adult son is living with her. She has been on disability. She is mostly wheelchair bound. Medically disabled. No international travel. No animals in the home. Daughter with her child and child's father live in the basement of the home. The child has been ill with diarrhea. Also had a fever Past Drug Use History: None Reported - Past Family History Father Family Medical History: Congestive Heart Failure (CHF), Coronary Artery Disease (CAD), Myocardial Infarction ([place]) Mother Family Medical History: Coronary Artery Disease (CAD), CVA/TIA, Dementia, Myocardial Infarction ([place]) Medications and Allergies Home Medications Medication Instructions Recorded Confirmed Type Albuterol Inhaler [Ventolin Hfa 1 puff INHALATION RT-QID PRN 02/18/14 11/19/16 History Inhaler] Cyclobenzaprine [Flexeril] 10 mg PO BID@1000,209902/18/14 11/19/16 History Simvastatin [Zocor] 40 mg PO HS@209902/18/14 11/19/16 History metFORMIN HCL [Glucophage] 850 mg PO BID@1000,209902/18/14 11/19/16 History Insulin Glargine [Lantus] 100 unit SQ QAM@1000 07/12/14 11/19/16 History Cetirizine HCl 10 mg PO DAILY@1000 10/25/14 11/19/16 History HYDROcodone/APAP 10-325MG [[place] 1 tab PO Q8H PRN 06/18/15 11/19/16 History 10-325] INSULIN LISPRO (humaLOG) [humaLOG 30 unit SQ TID-W/MEALS 06/18/15 11/19/16 History (formulary)] Pregabalin [Lyrica] 150 mg PO BID 06/19/15 11/19/16 History Albuterol Sulfate 2.5 mg INHALATION RT-QID PRN 12/14/15 11/19/16 History Insulin Glargine [Lantus] 80 unit SQ 12/14/15 11/19/16 History Latanoprost Ophth [Xalatan 0.005%] 1 drop BOTH EYES 12/14/15 11/19/16 History Aspirin EC [Ecotrin Low Dose] 81 mg PO DAILY 06/01/16 11/19/16 History Levothyroxine Sodium [Synthroid] 88 mcg PO DAILY 11/19/16 11/19/16 History Triamterene-Hctz 37.5-25Mg 1 cap PO DAILY 11/19/16 11/19/16 History [Dyazide 37.5-25 Capsule] Allergies Allergy/AdvReac Type Severity Reaction Status Date / Time Penicillins Allergy Anaphylaxis Verified 11/19/16 20:51 Physical Exam Vitals: Vital Signs Temp Pulse Pulse Resp BP BP Pulse Ox 11/20/16 07:00 98.0 F 79 18 125/69 96 11/19/16 23:00 97.2 F L 86 18 128/75 97 11/19/16 22:40 98.8 F 76 18 134/60 98 11/19/16 22:38 98.8 F 76 18 134/60 98 11/19/16 19:38 99.1 F 74 18 142/60 100 Intake and Output 11/19/16 11/20/16 11/20/16 22:59 06:59 14:59 Intake Total 300 240 Balance 300 240 Intake: Oral 300 240 Other: Voiding Method Toilet # Voids 1 Weight 150.593 kg 155 kg Gen: This is a 60-year-old morbidly obese female. She is sitting in a chair at the bedside appears to be in no acute distress. HEENT: Head is atraumatic, normocephalic. Pupils equal, round. Sclerae is anicteric. Conjunctivae are pink. Mucous members of the mouth are moist. Patient is edentulous. NECK: Supple. No JVD. No lymphadenopathy. No thyromegaly. LUNGS: Clear to auscultation. No wheezes or rhonchi. No intercostal retractions. HEART: Regular rate and rhythm. No murmur. ABDOMEN: Soft. Bowel sounds are present. No masses. No tenderness. No significant redness under the abdominal folds. She does complain of tenderness from the posterior and lateral thoracic back area around to her right breast. No rashes noted. EXTREMITIES: 2+ pedal edema to the right leg with wound noted to the distal lateral pretibial area with surrounding erythema. On the left foot patient is noted amputation of the third toe. Dorsalis pedis is +2 bilaterally. NEUROLOGICAL: Patient is awake, alert and oriented x3. Cranial nerves 2 through 12 are grossly intact. Results Results: Laboratory Results WBC 7.3 k/uL (3.8-10.6) 11/20/16 07:35 RBC 4.02 m/uL (3.80-5.40) 11/20/16 07:35 Hgb 12.0 gm/dL (11.4-16.0) 11/20/16 07:35 Hct 37.1 % (34.0-46.0) 11/20/16 07:35 MCV 92.3 fL (80.0-100.0) 11/20/16 07:35 MCH 29.8 pg (25.0-35.0) 11/20/16 07:35 MCHC 32.3 g/dL (31.0-37.0) 11/20/16 07:35 RDW 16.8 % (11.5-15.5) H 11/20/16 07:35 Plt Count 83 k/uL (150-450) L 11/20/16 07:35 Neutrophils % 69 % 11/20/16 07:35 Lymphocytes % 19 % 11/20/16 07:35 Monocytes % 5 % 11/20/16 07:35 Eosinophils % 5 % 11/20/16 07:35 Basophils % 1 % 11/20/16 07:35 Neutrophils # 5.1 k/uL (1.3-7.7) 11/20/16 07:35 Lymphocytes # 1.4 k/uL (1.0-4.8) 11/20/16 07:35 Monocytes # 0.4 k/uL (0-1.0) 11/20/16 07:35 Eosinophils # 0.4 k/uL (0-0.7) 11/20/16 07:35 Basophils # 0.1 k/uL (0-0.2) 11/20/16 07:35 Manual Slide Review Performed 11/19/16 20:38 Hypochromasia Slight 11/20/16 07:35 Poikilocytosis Slight 11/20/16 07:35 Anisocytosis Slight 11/20/16 07:35 Sodium 142 mmol/L (137-145) 11/20/16 07:41 Potassium 4.0 mmol/L (3.5-5.1) 11/20/16 07:41 Chloride 108 mmol/L (98-107) H 11/20/16 07:41 Carbon Dioxide 25 mmol/L (22-30) 11/20/16 07:41 Anion Gap 9 mmol/L 11/20/16 07:41 BUN 14 mg/dL (7-17) 11/20/16 07:41 Creatinine 0.58 mg/dL (0.52-1.04) 11/20/16 07:41 Est GFR (MDRD) Af Amer >60 (>60 ml/min/1.73 sqM) 11/20/16 07:41 Est GFR (MDRD) Non-Af >60 (>60 ml/min/1.73 sqM) 11/20/16 07:41 Glucose 107 mg/dL (74-99) H 11/20/16 07:41 POC Glucose (mg/dL) 222 mg/dL (75-99) H 11/20/16 12:07 POC Glu Final Assembly And Packing Supervisor RON AstudilolreyesAmber 11/20/16 12:07 Plasma Lactic Acid Marquise 1.6 mmol/L (0.7-2.0) 11/19/16 20:38 Calcium 8.5 mg/dL (8.4-10.2) 11/20/16 07:41 Total Bilirubin 0.5 mg/dL (0.2-1.3) 11/20/16 07:41 AST 26 U/L (14-36) 11/20/16 07:41 ALT 27 U/L (9-52) 11/20/16 07:41 Alkaline Phosphatase 78 U/L (38-126) 11/20/16 07:41 Total Protein 6.2 g/dL (6.3-8.2) L 11/20/16 07:41 Albumin 3.1 g/dL (3.5-5.0) L 11/20/16 07:41 Urine Color Yellow 11/19/16 20:38 Urine Appearance Clear (Clear) 11/19/16 20:38 Urine pH 6.0 (5.0-8.0) 11/19/16 20:38 Ur Specific [place] 1.013 (1.001-1.035) 11/19/16 20:38 Urine Protein Negative (Negative) 11/19/16 20:38 Urine Glucose (UA) Trace (Negative) H 11/19/16 20:38 Urine Ketones Negative (Negative) 11/19/16 20:38 Urine Blood Negative (Negative) 11/19/16 20:38 Urine Nitrite Negative (Negative) 11/19/16 20:38 Urine Bilirubin Negative (Negative) 11/19/16 20:38 Urine Urobilinogen <2.0 mg/dL (<2.0) 11/19/16 20:38 Ur Leukocyte Esterase Negative (Negative) 11/19/16 20:38 Acetone, Qual Negative (Negative) 11/19/16 20:38 CBC & Chem 7: 11/20/16 07:35 11/20/16 07:41 Labs: Abnormal Lab Results - Last 24 Hours (Table) 11/19/16 11/19/16 11/19/16 Range/Units 20:38 20:38 20:38 RDW 17.2 H (11.5-15.5) % Plt Count 82 L (150-450) k/uL Chloride (98-107) mmol/L Glucose 244 H (74-99) mg/dL POC Glucose (mg/dL) (75-99) mg/dL Total Protein (6.3-8.2) g/dL Albumin (3.5-5.0) g/dL Urine Glucose (UA) Trace H (Negative) 11/20/16 11/20/16 11/20/16 Range/Units 07:20 07:35 07:41 RDW 16.8 H (11.5-15.5) % Plt Count 83 L (150-450) k/uL Chloride 108 H (98-107) mmol/L Glucose 107 H (74-99) mg/dL POC Glucose (mg/dL) 115 H (75-99) mg/dL Total Protein 6.2 L (6.3-8.2) g/dL Albumin 3.1 L (3.5-5.0) g/dL Urine Glucose (UA) (Negative) 11/20/16 Range/Units 12:07 RDW (11.5-15.5) % Plt Count (150-450) k/uL Chloride (98-107) mmol/L Glucose (74-99) mg/dL POC Glucose (mg/dL) 222 H (75-99) mg/dL Total Protein (6.3-8.2) g/dL Albumin (3.5-5.0) g/dL Urine Glucose (UA) (Negative) Microbiology - Last 24 Hours (Table) 11/19/16 20:38 Gram Stain - Preliminary Leg - Right Wound Culture - Preliminary Assessment and Plan Plan: This is a 60-year-old female who presented to the hospital with cellulitis and wound to the right lower extremity. Wound culture is showing gram-positive cocci in clusters. Patient's been started on vancomycin which will be continued. Local wound care will be added with Silvadene wrap and elevation. Patient is also on Valtrex for shingles with no significant rash identified. She is also complaining of a right ear infection for which she has been on eardrops and her son will bring these in. Continue supportive care. Further recommendations as patient progresses. The above dictated assessment and findings were discussed with Dr. Nielsen. The impression and plan of care have been directed as dictated. Tiffany La nurse practitioner acting as scribe for Dr. Nielsen.
[2016-11-20 17:07] LABS: Glucose,Whole Blood 153 mg/dL (75-99)
[2016-11-20 21:16] LABS: Glucose,Whole Blood 123 mg/dL (75-99)
[2016-11-20 21:28] LABS: Hemoglobin A1C 8.2 % (4.2-6.1)
[2016-11-20] MEDS: LATANOPROST 0.005% OPHTH DROPS 2.5 ML BTL BOTH EYES SCH (21:39)
[2016-11-20] MEDS: HEPARIN SODIUM,PORCINE 5,000 UNIT/ML 1 ML VIAL SQ SCH (21:40)
[2016-11-20] MEDS: INSULIN GLARGINE 100 UNIT/ML 10 ML VIAL SQ SCH (21:40)
[2016-11-20] MEDS: ATORVASTATIN 20 MG TAB PO SCH (21:40)
--- NOTE | 2016-11-20 23:11 | P.CON ---
Consult Note - . Consult date: 11/20/16 Assessment/Plan:: This is a 60-year-old female well known to ID service as she has been seen in the past of the wound center for diabetic wound ulcer to the left foot with osteomyelitis and abscess and most recently for left foot wound in September 2016 which she states has completely healed. She denies any injury to the right leg and she usually has her son of my lotion daily. She states on Sunday, her son was rubbing her legs and everything seemed to be fine but when she woke up on Sunday she felt the area was different. His skin was positive and when she touched it opened up and started draining. She states she 's had low-grade fever and chills for the last couple of days she denies any change in her appetite. No nausea, vomiting, diarrhea. She does complain of constipation. She has also been on Valtrex for the past week for shingles in her right back radiating around to her right breast. She came into the [facility] emergency center. She is been afebrile with white count of 7.3. Wound culture is showing gram-positive cocci in clusters. Noted platelet count is an 82 but she appears to run in the 80s. She had ultrasound that was negative for DVT bilaterally. Tib-fib x-ray shows some cutaneous in edema with no fracture and no osteomyelitis. Patient is also complaining of right ear infection for which she is using eardrops and advised her son to bring these in. Patient is tearful at the end of the evaluation as she is concerned that she will lose her right lower leg. Regarding her diabetes, patient states that her hemoglobin A1c is down to 8.8 which is down from 11. Please see the consult note is dictated by nurse practitioner Mrs. Tiffany La. 52-year-old with sudden onset of cellulitis of right lower extremity. Local wound care will commence with the Silvadene dressing and wraps. Antibiotic therapy with vancomycin continues at this time. Cultures are in process. Patient concerned to possibility of shingles. No lesions are seen. She be monitored closely. Elevation of the limbs at rest. The cultures will be monitored. I agree with evaluation, assessment and plan as dictated by nurse practitioner Mrs. Tiffany La.
[2016-11-21] MEDS: SODIUM CHLORIDE 0.9% 1,000 ML IV SCH ×3 (06:17→23:51)
[2016-11-21 07:44] LABS: Glucose,Whole Blood 115 mg/dL (75-99)
[2016-11-21 07:44] LABS: Anisocytosis Slight; Basophils % (A) 1 %; CH 28.8; Eosinophils # (A) 0.2 k/uL (0-0.7); Eosinophils % (A) 4 %; HDW 3.76; HGB 11.6 gm/dL (11.4-16.0); Hypochromasia Slight; Luc # (Auto) 0.17; Luc % (Auto) 3; Lymphocytes # (A) 1.2 k/uL (1.0-4.8); Lymphocytes % (A) 21 %; MCH 29.2 pg (25.0-35.0); MCHC 33.1 g/dL (31.0-37.0); MCV 88.1 fL (80.0-100.0); Monocytes # (A) 0.2 k/uL (0-1.0); Monocytes % (A) 4 %; Neutrophils # (A) 3.6 k/uL (1.3-7.7); Neutrophils % (A) 67 %; Poikilocytosis Slight; RBC 3.97 m/uL (3.80-5.40); RDW 16.4 % (11.5-15.5); WBC 5.5 k/uL (3.8-10.6); WBC (Perox) 5.63
[2016-11-21] MEDS: INSULIN GLARGINE 100 UNIT/ML 10 ML VIAL SQ SCH ×2 (07:46→21:14)
[2016-11-21] MEDS: INSULIN LISPRO (humaLOG) 300 UNIT/3 ML VIAL SQ SCH ×7 (07:46→21:14)
[2016-11-21] MEDS: ASPIRIN 81 MG CHEW PO SCH (07:55)
[2016-11-21] MEDS: LEVOTHYROXINE 88 MCG TAB PO SCH (07:55)
[2016-11-21] MEDS: PREGABALIN 75 MG CAP PO SCH ×2 (07:55→21:14)
[2016-11-21] MEDS: metFORMIN 850 MG TAB PO SCH ×2 (07:56→21:14)
[2016-11-21] MEDS: LORATADINE 10 MG TAB PO SCH (07:56)
[2016-11-21] MEDS: CYCLOBENZAPRINE 10 MG TAB PO SCH ×2 (07:56→21:14)
[2016-11-21] MEDS: valACYclovir HCL 1,000 MG TABLET PO SCH ×3 (07:56→21:14)
[2016-11-21] MEDS: TRIAMTERENE-HCTZ 37.5-25MG 1 EACH CAP PO SCH (07:56)
[2016-11-21] MEDS: HEPARIN SODIUM,PORCINE 5,000 UNIT/ML 1 ML VIAL SQ SCH ×2 (07:56→21:14)
[2016-11-21 07:57] LABS: Anion Gap 8 mmol/L; Blood Urea Nitrogen 15 mg/dL (7-17); Calcium 8.4 mg/dL (8.4-10.2); Carbon Dioxide 25 mmol/L (22-30); Chloride 109 mmol/L (98-107); Glucose 95 mg/dL (74-99); Non-African American GFR(MDRD) >60 (>60 ml/min/1.73 sqM); Sodium 142 mmol/L (137-145)
[2016-11-21] MEDS: HYDROcodone/APAP 10-325MG 1 EACH TAB PO PRN ×2 (08:00→20:00)
[2016-11-21] MEDS: VANCOMYCIN 2,000 MG in SODIUM CHLORIDE 0.9% 500 ML IVPB SCH ×2 (10:54→23:14)
[2016-11-21 12:25] LABS: Glucose,Whole Blood 259 mg/dL (75-99)
[2016-11-21 16:33] LABS: Glucose,Whole Blood 226 mg/dL (75-99)
--- NOTE | 2016-11-21 17:54 | P.PN ---
Subjective This is a 60-year-old female who has a known past medical history of diabetes, diabetic foot ulcers, osteomyelitis of the left foot, morbid obesity, COPD, hyperlipidemia, obstructive sleep apnea, bipolar and hypothyroidism. Patient presents to the emergency room with complaints of increased redness and burning sensation along the right tibia. She reports a small blister on the right tibia that popped open with a greenish discharge. She came into the emergency room for further evaluation and treatment she has been admitted to the hospital for right lower extremity cellulitis. Patient does report pain with palpation of bilateral calves a venous Doppler has been ordered. She's followed up with Dr. Nielsen at the wound care center for her healed left diabetic foot ulcer. She's been started on IV vancomycin. She's also given IV fluids. X-ray of the right tibia-fibula shows no evidence of any osteomyelitis or fracture does show subcutaneous edema. Patient does admit to having some chills and low-grade temps at home. She denies any nausea vomiting. Denies any bowel movement changes or urinary symptoms. Was seen and examined on 11/21/2016 she is feeling better. Right lower extremity is dressed and wrapped, she denies any pain or discomfort at this. Objective - Vital Signs Vital signs: Vital Signs Temp 97.1 F L 11/21/16 15:00 Pulse 77 11/21/16 15:00 Resp 16 11/21/16 15:00 BP 127/65 11/21/16 15:00 Pulse Ox 96 11/21/16 15:00 Intake & Output 11/20/16 11/21/16 11/21/16 18:59 06:59 18:59 Intake Total 240 1690 Balance 240 1690 Intake: Oral 240 1690 Other: Voiding Method Toilet Toilet # Voids 2 3 3 # Bowel Movements 0 - Exam In general patient is alert and oriented 3 in no apparent distress HEENT head normocephalic and atraumatic Neck is supple no JVD no goiter no lymphadenopathy Chest exam reveals a few scattered rhonchi no wheezing Cardiac exam reveals regular heart sounds S1 and S2 no gallops no murmurs Abdomen is soft nontender no organomegaly Extremity exam reveals mild edema no cyanosis or clubbing, right lower extremity is dressed and wrapped, this was examined yesterday she had erythema and right sided pretibial open ulcer. - Labs CBC & Chem 7: 11/21/16 07:10 11/21/16 07:10 Labs: Abnormal Lab Results - Last 24 Hours (Table) 11/20/16 11/20/16 11/21/16 Range/Units 07:41 21:08 07:10 RDW (11.5-15.5) % Plt Count (150-450) k/uL Chloride 109 H (98-107) mmol/L POC Glucose (mg/dL) 123 H (75-99) mg/dL Hemoglobin A1c 8.2 H (4.2-6.1) % 11/21/16 11/21/16 11/21/16 Range/Units 07:10 07:30 12:12 RDW 16.4 H (11.5-15.5) % Plt Count 75 L (150-450) k/uL Chloride (98-107) mmol/L POC Glucose (mg/dL) 115 H 259 H (75-99) mg/dL Hemoglobin A1c (4.2-6.1) % 11/21/16 Range/Units 16:31 RDW (11.5-15.5) % Plt Count (150-450) k/uL Chloride (98-107) mmol/L POC Glucose (mg/dL) 226 H (75-99) mg/dL Hemoglobin A1c (4.2-6.1) % Microbiology - Last 24 Hours (Table) 11/19/16 20:38 Gram Stain - Preliminary Leg - Right Wound Culture - Preliminary Presumptive Staph aureus 11/19/16 20:38 Blood Culture - Preliminary Blood No Growth after 24 hours Assessment and Plan Plan: 1. Right lower extremity cellulitis: Patient has been started on IV vancomycin. Continue with IV fluids. ID consult has been placed. X-ray of the right tibia-fibula shows no evidence of vasculitis or fracture it is showing subcutaneous edema. Check bilateral lower extremity venous Dopplers to rule out DVT. 2. Mild protein calorie malnutrition: Start Glucerna shakes 3. Chronic thrombocytopenia: Patient near baseline 4. Diabetes mellitus type 2: Blood sugar 107 this morning currently her Lantus was held in the emergency room. We'll monitor blood sugars continue sliding scale coverage and metformin. And will adjust insulin as needed. 5. Previous history of diabetic foot ulcer and osteomyelitis requiring wound care services 6. History of bipolar 7. Hyperlipidemia continue Lipitor 8. Hypothyroidism continue Synthroid Continue was current management awaiting further culture results
[2016-11-21 20:53] LABS: Glucose,Whole Blood 177 mg/dL (75-99)
[2016-11-21] MEDS: ATORVASTATIN 20 MG TAB PO SCH (21:14)
[2016-11-21] MEDS: LATANOPROST 0.005% OPHTH DROPS 2.5 ML BTL BOTH EYES SCH (21:16)
[2016-11-21] MEDS ORDERED: VANCOMYCIN TROUGH DUE 1 EACH MISC MISCELLANE ONE (22:00)
[2016-11-22 03:43] LABS: Glucose,Whole Blood 180 mg/dL (75-99)
[2016-11-22] MEDS: HYDROcodone/APAP 10-325MG 1 EACH TAB PO PRN ×3 (03:45→22:09)
[2016-11-22 07:39] LABS: Glucose,Whole Blood 187 mg/dL (75-99)
[2016-11-22] MEDS: LEVOTHYROXINE 88 MCG TAB PO SCH (08:10)
[2016-11-22] MEDS: TRIAMTERENE-HCTZ 37.5-25MG 1 EACH CAP PO SCH (08:10)
[2016-11-22] MEDS: ASPIRIN 81 MG CHEW PO SCH (08:10)
[2016-11-22] MEDS: HEPARIN SODIUM,PORCINE 5,000 UNIT/ML 1 ML VIAL SQ SCH ×2 (08:11→20:28)
[2016-11-22] MEDS: PREGABALIN 75 MG CAP PO SCH ×2 (08:11→20:29)
[2016-11-22] MEDS: INSULIN LISPRO (humaLOG) 300 UNIT/3 ML VIAL SQ SCH ×7 (08:11→21:59)
[2016-11-22] MEDS: valACYclovir HCL 1,000 MG TABLET PO SCH ×3 (08:11→20:30)
[2016-11-22 09:08] LABS: Anisocytosis Slight; Basophils % (A) 1 %; CH 30.1; CHCM 33.3; Eosinophils # (A) 0.2 k/uL (0-0.7); Eosinophils % (A) 4 %; HCT 35.9 % (34.0-46.0); HDW 3.65; HGB 11.5 gm/dL (11.4-16.0); Luc # (Auto) 0.11; Luc % (Auto) 2; Lymphocytes # (A) 1.2 k/uL (1.0-4.8); Lymphocytes % (A) 22 %; MCH 29.3 pg (25.0-35.0); MCHC 32.1 g/dL (31.0-37.0); MCV 91.2 fL (80.0-100.0); Mean Platelet Volume 8.9; Monocytes # (A) 0.2 k/uL (0-1.0); Monocytes % (A) 4 %; Neutrophils # (A) 3.7 k/uL (1.3-7.7); Neutrophils % (A) 67 %; Poikilocytosis Slight; RBC 3.94 m/uL (3.80-5.40); RDW 17.3 % (11.5-15.5); WBC 5.5 k/uL (3.8-10.6); WBC (Perox) 5.63
[2016-11-22 09:17] LABS: ALT 37 U/L (9-52); AST 27 U/L (14-36); Alkaline Phosphatase 96 U/L (38-126); Anion Gap 7 mmol/L; Blood Urea Nitrogen 18 mg/dL (7-17); Calcium 8.9 mg/dL (8.4-10.2); Carbon Dioxide 28 mmol/L (22-30); Chloride 105 mmol/L (98-107); Glucose 204 mg/dL (74-99); Non-African American GFR(MDRD) >60 (>60 ml/min/1.73 sqM); Potassium 4.6 mmol/L (3.5-5.1); Sodium 140 mmol/L (137-145); Total Bilirubin 0.5 mg/dL (0.2-1.3); Total Protein 6.3 g/dL (6.3-8.2)
[2016-11-22] MEDS: metFORMIN 850 MG TAB PO SCH ×2 (10:11→22:01)
[2016-11-22] MEDS: LORATADINE 10 MG TAB PO SCH (10:11)
[2016-11-22] MEDS: INSULIN GLARGINE 100 UNIT/ML 10 ML VIAL SQ SCH ×2 (10:11→22:00)
[2016-11-22] MEDS: CYCLOBENZAPRINE 10 MG TAB PO SCH ×2 (10:11→20:28)
[2016-11-22] MEDS: VANCOMYCIN 2,000 MG in SODIUM CHLORIDE 0.9% 500 ML IVPB SCH ×2 (11:07→22:04)
[2016-11-22] MEDS: SODIUM CHLORIDE 0.9% 1,000 ML IV SCH ×2 (11:09→20:27)
[2016-11-22 11:40] VITALS: BMI 52.0
[2016-11-22 11:57] LABS: Glucose,Whole Blood 188 mg/dL (75-99)
[2016-11-22 16:55] LABS: Glucose,Whole Blood 99 mg/dL (75-99)
--- NOTE | 2016-11-22 19:39 | P.PN ---
Subjective This is a 60-year-old female who has a known past medical history of diabetes, diabetic foot ulcers, osteomyelitis of the left foot, morbid obesity, COPD, hyperlipidemia, obstructive sleep apnea, bipolar and hypothyroidism. Patient presents to the emergency room with complaints of increased redness and burning sensation along the right tibia. She reports a small blister on the right tibia that popped open with a greenish discharge. She came into the emergency room for further evaluation and treatment she has been admitted to the hospital for right lower extremity cellulitis. Patient does report pain with palpation of bilateral calves a venous Doppler has been ordered. She's followed up with Dr. Nielsen at the wound care center for her healed left diabetic foot ulcer. She's been started on IV vancomycin. She's also given IV fluids. X-ray of the right tibia-fibula shows no evidence of any osteomyelitis or fracture does show subcutaneous edema. Patient does admit to having some chills and low-grade temps at home. She denies any nausea vomiting. Denies any bowel movement changes or urinary symptoms. Was seen and examined on 11/21/2016 she is feeling better. Right lower extremity is dressed and wrapped, she denies any pain or discomfort at this. Objective - Vital Signs Vital signs: Vital Signs Temp 97.1 F L 11/22/16 15:00 Pulse 82 11/22/16 15:00 Resp 18 11/22/16 15:00 BP 128/53 11/22/16 15:00 Pulse Ox 96 11/22/16 15:00 Intake & Output 11/22/16 11/22/16 11/23/16 06:59 18:59 06:59 Intake Total 600 500 Balance 600 500 Weight 155 kg Intake: Intake, IV Titration 500 Amount Vancomycin 2,000 mg In 500 Sodium Chloride 0.9% 500 ml @ 167 mls/hr IVPB Q12H [facility] Rx#:[id number] Oral 600 Other: Voiding Method Toilet # Voids 2 - Exam In general patient is alert and oriented 3 in no apparent distress HEENT head normocephalic and atraumatic Neck is supple no JVD no goiter no lymphadenopathy Chest exam reveals a few scattered rhonchi no wheezing Cardiac exam reveals regular heart sounds S1 and S2 no gallops no murmurs Abdomen is soft nontender no organomegaly Extremity exam reveals mild edema no cyanosis or clubbing, right lower extremity is dressed and wrapped, this was examined yesterday she had erythema and right sided pretibial open ulcer. - Labs CBC & Chem 7: 11/22/16 08:37 11/22/16 08:37 Labs: Abnormal Lab Results - Last 24 Hours (Table) 11/21/16 11/22/16 11/22/16 Range/Units 20:49 03:41 07:29 RDW (11.5-15.5) % Plt Count (150-450) k/uL BUN (7-17) mg/dL Glucose (74-99) mg/dL POC Glucose (mg/dL) 177 H 180 H 187 H (75-99) mg/dL Albumin (3.5-5.0) g/dL 11/22/16 11/22/16 11/22/16 Range/Units 08:37 08:37 11:53 RDW 17.3 H (11.5-15.5) % Plt Count 80 L (150-450) k/uL BUN 18 H (7-17) mg/dL Glucose 204 H (74-99) mg/dL POC Glucose (mg/dL) 188 H (75-99) mg/dL Albumin 3.4 L (3.5-5.0) g/dL Microbiology - Last 24 Hours (Table) 11/19/16 20:38 Gram Stain - Final Leg - Right Wound Culture - Final Staphylococcus aureus 11/19/16 20:38 Blood Culture - Preliminary Blood No Growth after 48 hours Assessment and Plan Plan: 1. Right lower extremity cellulitis: Patient has been started on IV vancomycin. Continue with IV fluids. ID consult has been placed. X-ray of the right tibia-fibula shows no evidence of vasculitis or fracture it is showing subcutaneous edema. Check bilateral lower extremity venous Dopplers to rule out DVT. 2. Mild protein calorie malnutrition: Start Glucerna shakes 3. Chronic thrombocytopenia: Patient near baseline 4. Diabetes mellitus type 2: Blood sugar 107 this morning currently her Lantus was held in the emergency room. We'll monitor blood sugars continue sliding scale coverage and metformin. And will adjust insulin as needed. 5. Previous history of diabetic foot ulcer and osteomyelitis requiring wound care services 6. History of bipolar 7. Hyperlipidemia continue Lipitor 8. Hypothyroidism continue Synthroid Continue was current management awaiting further culture results
[2016-11-22] MEDS: ATORVASTATIN 20 MG TAB PO SCH (20:28)
[2016-11-22] MEDS: LATANOPROST 0.005% OPHTH DROPS 2.5 ML BTL BOTH EYES SCH (20:29)
[2016-11-22 21:19] LABS: Glucose,Whole Blood 95 mg/dL (75-99)
--- NOTE | 2016-11-22 23:41 | P.PN ---
Subjective Principal diagnosis: cellulitis to leg and edema This is a 60-year-old female well known to ID service as she has been seen in the past of the wound center for diabetic wound ulcer to the left foot with osteomyelitis and abscess and most recently for left foot wound in September 2016 which she states has completely healed. She denies any injury to the right leg and she usually has her son of my lotion daily. She states on Sunday, her son was rubbing her legs and everything seemed to be fine but when she woke up on Sunday she felt the area was different. His skin was positive and when she touched it opened up and started draining. She states she 's had low-grade fever and chills for the last couple of days she denies any change in her appetite. No nausea, vomiting, diarrhea. She does complain of constipation. She has also been on Valtrex for the past week for shingles in her right back radiating around to her right breast. She came into the [facility] emergency center. She is been afebrile with white count of 7.3. Wound culture is showing gram-positive cocci in clusters. Noted platelet count is an 82 but she appears to run in the 80s. She had ultrasound that was negative for DVT bilaterally. Tib-fib x-ray shows some cutaneous in edema with no fracture and no osteomyelitis. Patient is also complaining of right ear infection for which she is using eardrops and advised her son to bring these in. Patient is tearful at the end of the evaluation as she is concerned that she will lose her right lower leg. Regarding her diabetes, patient states that her hemoglobin A1c is down to 8.8 which is down from 11 Improving today Objective - Vital Signs Vital signs: Vital Signs Temp 97.1 F L 11/22/16 15:00 Pulse 82 11/22/16 15:00 Resp 18 11/22/16 15:00 BP 128/53 11/22/16 15:00 Pulse Ox 96 11/22/16 15:00 Intake & Output 11/22/16 11/22/16 11/23/16 06:59 18:59 06:59 Intake Total 600 500 Balance 600 500 Weight 155 kg Intake: Intake, IV Titration 500 Amount Vancomycin 2,000 mg In 500 Sodium Chloride 0.9% 500 ml @ 167 mls/hr IVPB Q12H [facility] Rx#:[id number] Oral 600 Other: Voiding Method Toilet # Voids 2 - Exam Gen: This is a 60-year-old morbidly obese female. She is sitting in a chair at the bedside appears to be in no acute distress. HEENT: Head is atraumatic, normocephalic. Pupils equal, round. Sclerae is anicteric. Conjunctivae are pink. Mucous members of the mouth are moist. Patient is edentulous. NECK: Supple. No JVD. No lymphadenopathy. No thyromegaly. LUNGS: Clear to auscultation. No wheezes or rhonchi. No intercostal retractions. HEART: Regular rate and rhythm. No murmur. ABDOMEN: Soft. Bowel sounds are present. No masses. No tenderness. No significant redness under the abdominal folds. She does complain of tenderness from the posterior and lateral thoracic back area around to her right breast. No rashes noted. EXTREMITIES: 2+ pedal edema to the right leg with wound noted to the distal lateral pretibial area with surrounding erythema. some improvement today. On the left foot patient is noted amputation of the third toe. Dorsalis pedis is +2 bilaterally. NEUROLOGICAL: Patient is awake, alert and oriented x3. - Labs CBC & Chem 7: 11/22/16 08:37 11/22/16 08:37 Labs: Abnormal Lab Results - Last 24 Hours (Table) 11/22/16 11/22/16 11/22/16 Range/Units 03:41 07:29 08:37 RDW (11.5-15.5) % Plt Count (150-450) k/uL BUN 18 H (7-17) mg/dL Glucose 204 H (74-99) mg/dL POC Glucose (mg/dL) 180 H 187 H (75-99) mg/dL Albumin 3.4 L (3.5-5.0) g/dL 11/22/16 11/22/16 Range/Units 08:37 11:53 RDW 17.3 H (11.5-15.5) % Plt Count 80 L (150-450) k/uL BUN (7-17) mg/dL Glucose (74-99) mg/dL POC Glucose (mg/dL) 188 H (75-99) mg/dL Albumin (3.5-5.0) g/dL Microbiology - Last 24 Hours (Table) 11/19/16 20:38 Blood Culture - Preliminary Blood No Growth after 72 hours 11/19/16 20:38 Gram Stain - Final Leg - Right Wound Culture - Final Staphylococcus aureus Laboratory Results WBC 5.5 k/uL (3.8-10.6) 11/22/16 08:37 RBC 3.94 m/uL (3.80-5.40) 11/22/16 08:37 Hgb 11.5 gm/dL (11.4-16.0) 11/22/16 08:37 Hct 35.9 % (34.0-46.0) 11/22/16 08:37 MCV 91.2 fL (80.0-100.0) 11/22/16 08:37 MCH 29.3 pg (25.0-35.0) 11/22/16 08:37 MCHC 32.1 g/dL (31.0-37.0) 11/22/16 08:37 RDW 17.3 % (11.5-15.5) H 11/22/16 08:37 Plt Count 80 k/uL (150-450) L 11/22/16 08:37 Neutrophils % 67 % 11/22/16 08:37 Lymphocytes % 22 % 11/22/16 08:37 Monocytes % 4 % 11/22/16 08:37 Eosinophils % 4 % 11/22/16 08:37 Basophils % 1 % 11/22/16 08:37 Neutrophils # 3.7 k/uL (1.3-7.7) 11/22/16 08:37 Lymphocytes # 1.2 k/uL (1.0-4.8) 11/22/16 08:37 Monocytes # 0.2 k/uL (0-1.0) 11/22/16 08:37 Eosinophils # 0.2 k/uL (0-0.7) 11/22/16 08:37 Basophils # 0.0 k/uL (0-0.2) 11/22/16 08:37 Manual Slide Review Performed 11/19/16 20:38 Hypochromasia Slight 11/21/16 07:10 Poikilocytosis Slight 11/22/16 08:37 Anisocytosis Slight 11/22/16 08:37 Sodium 140 mmol/L (137-145) 11/22/16 08:37 Potassium 4.6 mmol/L (3.5-5.1) 11/22/16 08:37 Chloride 105 mmol/L (98-107) 11/22/16 08:37 Carbon Dioxide 28 mmol/L (22-30) 11/22/16 08:37 Anion Gap 7 mmol/L 11/22/16 08:37 BUN 18 mg/dL (7-17) H 11/22/16 08:37 Creatinine 0.70 mg/dL (0.52-1.04) 11/22/16 08:37 Est GFR (MDRD) Af Amer >60 (>60 ml/min/1.73 sqM) 11/22/16 08:37 Est GFR (MDRD) Non-Af >60 (>60 ml/min/1.73 sqM) 11/22/16 08:37 Glucose 204 mg/dL (74-99) H 11/22/16 08:37 POC Glucose (mg/dL) 95 mg/dL (75-99) 11/22/16 21:17 POC Glu [employer] ID Guerita Vicente 11/22/16 21:[address] Glu mg/dL 189 mg/dL 11/20/16 07:41 Hemoglobin A1c 8.2 % (4.2-6.1) H 11/20/16 07:41 Plasma Lactic Acid Marquise 1.6 mmol/L (0.7-2.0) 11/19/16 20:38 Calcium 8.9 mg/dL (8.4-10.2) 11/22/16 08:37 Total Bilirubin 0.5 mg/dL (0.2-1.3) 11/22/16 08:37 AST 27 U/L (14-36) 11/22/16 08:37 ALT 37 U/L (9-52) 11/22/16 08:37 Alkaline Phosphatase 96 U/L (38-126) 11/22/16 08:37 Total Protein 6.3 g/dL (6.3-8.2) 11/22/16 08:37 Albumin 3.4 g/dL (3.5-5.0) L 11/22/16 08:37 Urine Color Yellow 11/19/16 20:38 Urine Appearance Clear (Clear) 11/19/16 20:38 Urine pH 6.0 (5.0-8.0) 11/19/16 20:38 Ur Specific [place] 1.013 (1.001-1.035) 11/19/16 20:38 Urine Protein Negative (Negative) 11/19/16 20:38 Urine Glucose (UA) Trace (Negative) H 11/19/16 20:38 Urine Ketones Negative (Negative) 11/19/16 20:38 Urine Blood Negative (Negative) 11/19/16 20:38 Urine Nitrite Negative (Negative) 11/19/16 20:38 Urine Bilirubin Negative (Negative) 11/19/16 20:38 Urine Urobilinogen <2.0 mg/dL (<2.0) 11/19/16 20:38 Ur Leukocyte Esterase Negative (Negative) 11/19/16 20:38 Vancomycin Trough 17.9 ug/mL 11/21/16 22:11 Acetone, Qual Negative (Negative) 11/19/16 20:38 Microbiology 11/19/16 20:38 Blood Blood Culture - Preliminary No Growth after 72 hours 11/19/16 20:38 Leg - Right Gram Stain - Final 11/19/16 20:38 Leg - Right Wound Culture - Final Staphylococcus aureus Assessment and Plan Plan: 60-year-old with sudden onset of cellulitis of right lower extremity. Local wound care will commence with the Silvadene dressing and wraps. Antibiotic therapy with vancomycin continues at this time. Cultures reveal MSSA Vanco changed to Cefazolin. Patient concerned to possibility of shingles. No lesions are seen. She be monitored closely. Elevation of the limbs at rest. The cultures will be monitored.
[2016-11-23] MEDS: ceFAZolin 2 GM in SODIUM CHLORIDE 0.9% 100 ML IVPB SCH ×4 (01:00→23:07)
[2016-11-23 02:06] LABS: Glucose,Whole Blood 135 mg/dL (75-99)
[2016-11-23] MEDS: HYDROcodone/APAP 10-325MG 1 EACH TAB PO PRN ×3 (04:57→20:14)
[2016-11-23] MEDS: SODIUM CHLORIDE 0.9% 1,000 ML IV SCH ×2 (05:03→17:53)
[2016-11-23 07:41] LABS: Glucose,Whole Blood 159 mg/dL (75-99)
[2016-11-23] MEDS: ASPIRIN 81 MG CHEW PO SCH (08:11)
[2016-11-23] MEDS: INSULIN LISPRO (humaLOG) 300 UNIT/3 ML VIAL SQ SCH ×7 (08:11→21:12)
[2016-11-23] MEDS: valACYclovir HCL 1,000 MG TABLET PO SCH ×3 (08:11→20:15)
[2016-11-23] MEDS: TRIAMTERENE-HCTZ 37.5-25MG 1 EACH CAP PO SCH (08:11)
[2016-11-23] MEDS: PREGABALIN 75 MG CAP PO SCH ×2 (08:11→20:15)
[2016-11-23] MEDS: LEVOTHYROXINE 88 MCG TAB PO SCH (08:11)
[2016-11-23] MEDS: HEPARIN SODIUM,PORCINE 5,000 UNIT/ML 1 ML VIAL SQ SCH ×2 (08:11→20:15)
[2016-11-23 08:22] LABS: Anisocytosis Slight; Basophils % (A) 1 %; Eosinophils # (A) 0.2 k/uL (0-0.7); Eosinophils % (A) 4 %; HCT 33.3 % (34.0-46.0); HDW 3.68; HGB 11.6 gm/dL (11.4-16.0); Hypochromasia Slight; Luc # (Auto) 0.14; Luc % (Auto) 3; Lymphocytes # (A) 1.2 k/uL (1.0-4.8); Lymphocytes % (A) 23 %; MCH 30.8 pg (25.0-35.0); MCHC 34.7 g/dL (31.0-37.0); MCV 88.8 fL (80.0-100.0); Mean Platelet Volume 7.9; Monocytes # (A) 0.3 k/uL (0-1.0); Monocytes % (A) 7 %; Neutrophils # (A) 3.3 k/uL (1.3-7.7); Neutrophils % (A) 63 %; Poikilocytosis Slight; RBC 3.75 m/uL (3.80-5.40); RDW 16.7 % (11.5-15.5); WBC 5.2 k/uL (3.8-10.6); WBC (Perox) 5.36
[2016-11-23 08:42] LABS: Anion Gap 7 mmol/L; Blood Urea Nitrogen 16 mg/dL (7-17); Calcium 8.5 mg/dL (8.4-10.2); Carbon Dioxide 28 mmol/L (22-30); Chloride 106 mmol/L (98-107); Glucose 137 mg/dL (74-99); Non-African American GFR(MDRD) >60 (>60 ml/min/1.73 sqM); Sodium 141 mmol/L (137-145)
--- NOTE | 2016-11-23 10:34 | P.PN ---
Subjective This is a 60-year-old female who has a known past medical history of diabetes, diabetic foot ulcers, osteomyelitis of the left foot, morbid obesity, COPD, hyperlipidemia, obstructive sleep apnea, bipolar and hypothyroidism. Patient presents to the emergency room with complaints of increased redness and burning sensation along the right tibia. She reports a small blister on the right tibia that popped open with a greenish discharge. She came into the emergency room for further evaluation and treatment she has been admitted to the hospital for right lower extremity cellulitis. Patient does report pain with palpation of bilateral calves a venous Doppler has been ordered. She's followed up with Dr. Nielsen at the wound care center for her healed left diabetic foot ulcer. She's been started on IV vancomycin. She's also given IV fluids. X-ray of the right tibia-fibula shows no evidence of any osteomyelitis or fracture does show subcutaneous edema. Patient does admit to having some chills and low-grade temps at home. She denies any nausea vomiting. Denies any bowel movement changes or urinary symptoms. 11/23/2016 patient has had improvement in her right cellulitis of the lower extremity. Patient is still hesitant for discharge. Vancomycin was discontinued yesterday by Dr. Nielsen in patient started on ceftezole in. Wound culture had grown staph aureus. Patient has no other complaints. Objective - Vital Signs Vital signs: Vital Signs Temp 97.3 F L 11/23/16 07:00 Pulse 72 11/23/16 07:00 Resp 18 11/23/16 07:00 BP 111/60 11/23/16 07:00 Pulse Ox 96 11/23/16 07:00 Intake & Output 11/22/16 11/23/16 11/23/16 18:59 06:59 18:59 Intake Total 500 Balance 500 Weight 155 kg Intake: Intake, IV Titration 500 Amount Vancomycin 2,000 mg In 500 Sodium Chloride 0.9% 500 ml @ 167 mls/hr IVPB Q12H [facility] Rx#:[id number] Other: # Voids 3 - Exam Head normocephalic Neck supple Lungs clear to auscultation bilaterally no wheezing or crackles Heart regular rate and rhythm S1-S2, no rub or gallop Abdomen is soft nontender nondistended positive bowel sounds no hepatosplenomegaly Extremities edema present bilaterally. Right leg cellulitis and erythema showing improvement. No drainage. Neuro alert and orientated to 3 - Labs CBC & Chem 7: 11/23/16 07:21 11/23/16 07:21 Labs: Abnormal Lab Results - Last 24 Hours (Table) 11/22/16 11/23/16 11/23/16 Range/Units 11:53 02:04 07:21 RBC (3.80-5.40) m/uL Hct (34.0-46.0) % RDW (11.5-15.5) % Plt Count (150-450) k/uL Glucose 137 H (74-99) mg/dL POC Glucose (mg/dL) 188 H 135 H (75-99) mg/dL 11/23/16 11/23/16 Range/Units 07:21 07:38 RBC 3.75 L (3.80-5.40) m/uL Hct 33.3 L (34.0-46.0) % RDW 16.7 H (11.5-15.5) % Plt Count 71 L (150-450) k/uL Glucose (74-99) mg/dL POC Glucose (mg/dL) 159 H (75-99) mg/dL Microbiology - Last 24 Hours (Table) 11/19/16 20:38 Blood Culture - Preliminary Blood No Growth after 72 hours 11/19/16 20:38 Gram Stain - Final Leg - Right Wound Culture - Final Staphylococcus aureus Assessment and Plan Plan: 1. Right lower extremity cellulitis: Patient has been started on IV vancomycin. Continue with IV fluids. ID consult has been placed. X-ray of the right tibia-fibula shows no evidence of osteomyelitis or fracture it is showing subcutaneous edema. Venous Doppler is negative for DVT. Antibiotics adjusted by infectious disease. Vancomycin discontinued and they have started ceftezole in. Patient has had improvement in her cellulitis. Wound culture growing Staphylococcus aureus. Anticipate discharge possibly tomorrow. 2. Mild protein calorie malnutrition: Start Glucerna shakes 3. Chronic thrombocytopenia: Patient near baseline 4. Diabetes mellitus type 2: Continue current Lantus and Humalog. Blood sugars are stable 5. Previous history of diabetic foot ulcer and osteomyelitis requiring wound care services 6. History of bipolar 7. Hyperlipidemia continue Lipitor 8. Hypothyroidism continue Synthroid 9. Morbid obesity DVT prophylaxis subcu heparin Anticipate discharge possibly tomorrow. Encourage patient to keep legs elevated.
[2016-11-23 11:57] LABS: Glucose,Whole Blood 129 mg/dL (75-99)
[2016-11-23] MEDS: metFORMIN 850 MG TAB PO SCH ×2 (12:48→21:18)
[2016-11-23] MEDS: CYCLOBENZAPRINE 10 MG TAB PO SCH ×2 (12:48→20:15)
[2016-11-23] MEDS: LORATADINE 10 MG TAB PO SCH (12:48)
[2016-11-23] MEDS: INSULIN GLARGINE 100 UNIT/ML 10 ML VIAL SQ SCH ×2 (12:49→21:12)
[2016-11-23 16:16] LABS: Glucose,Whole Blood 133 mg/dL (75-99)
[2016-11-23] MEDS: ATORVASTATIN 20 MG TAB PO SCH (20:15)
[2016-11-23] MEDS: LATANOPROST 0.005% OPHTH DROPS 2.5 ML BTL BOTH EYES SCH (20:15)
[2016-11-23 20:40] LABS: Glucose,Whole Blood 113 mg/dL (75-99)
--- NOTE | 2016-11-23 21:12 | P.PN ---
Subjective Principal diagnosis: cellulitis to leg and edema This is a 60-year-old female well known to ID service as she has been seen in the past of the wound center for diabetic wound ulcer to the left foot with osteomyelitis and abscess and most recently for left foot wound in September 2016 which she states has completely healed. She denies any injury to the right leg and she usually has her son of my lotion daily. She states on Sunday, her son was rubbing her legs and everything seemed to be fine but when she woke up on Sunday she felt the area was different. His skin was positive and when she touched it opened up and started draining. She states she 's had low-grade fever and chills for the last couple of days she denies any change in her appetite. No nausea, vomiting, diarrhea. She does complain of constipation. She has also been on Valtrex for the past week for shingles in her right back radiating around to her right breast. She came into the [facility] emergency center. She is been afebrile with white count of 7.3. Wound culture is showing gram-positive cocci in clusters. Noted platelet count is an 82 but she appears to run in the 80s. She had ultrasound that was negative for DVT bilaterally. Tib-fib x-ray shows some cutaneous in edema with no fracture and no osteomyelitis. Patient is also complaining of right ear infection for which she is using eardrops and advised her son to bring these in. Patient is tearful at the end of the evaluation as she is concerned that she will lose her right lower leg. Regarding her diabetes, patient states that her hemoglobin A1c is down to 8.8 which is down from 11 Improving today even further. Pain is resolved. Objective - Vital Signs Vital signs: Vital Signs Temp 97.2 F L 11/23/16 15:00 Pulse 85 11/23/16 15:00 Resp 19 11/23/16 15:00 BP 129/65 11/23/16 15:00 Pulse Ox 94 L 11/23/16 15:00 Intake & Output 11/23/16 11/23/16 11/24/16 06:59 18:59 06:59 Intake Total 100 Balance 100 Intake: Intake, IV Titration 100 Amount ceFAZolin 2 gm In Sodium 100 Chloride 0.9% 100 ml @ 100 mls/hr IVPB Q8HR [facility] Rx#:[id number] Other: # Voids 3 - Exam Gen: This is a 60-year-old morbidly obese female. She is sitting in a chair at the bedside appears to be in no acute distress. HEENT: Head is atraumatic, normocephalic. Pupils equal, round. Sclerae is anicteric. Conjunctivae are pink. Mucous members of the mouth are moist. Patient is edentulous. NECK: Supple. No JVD. No lymphadenopathy. No thyromegaly. LUNGS: Clear to auscultation. No wheezes or rhonchi. No intercostal retractions. HEART: Regular rate and rhythm. No murmur. ABDOMEN: Soft. Bowel sounds are present. No masses. No tenderness. No significant redness under the abdominal folds. She does complain of tenderness from the posterior and lateral thoracic back area around to her right breast. No rashes noted. EXTREMITIES: 2+ pedal edema to the right leg with wound noted to the distal lateral pretibial area with thickened improvement of the erythema. On the left foot patient is noted amputation of the third toe. Dorsalis pedis is +2 bilaterally. NEUROLOGICAL: Patient is awake, alert and oriented x3. - Labs CBC & Chem 7: 11/23/16 07:21 11/23/16 07:21 Labs: Abnormal Lab Results - Last 24 Hours (Table) 11/23/16 11/23/16 11/23/16 Range/Units 02:04 07:21 07:21 RBC 3.75 L (3.80-5.40) m/uL Hct 33.3 L (34.0-46.0) % RDW 16.7 H (11.5-15.5) % Plt Count 71 L (150-450) k/uL Glucose 137 H (74-99) mg/dL POC Glucose (mg/dL) 135 H (75-99) mg/dL 11/23/16 11/23/16 11/23/16 Range/Units 07:38 11:55 16:14 RBC (3.80-5.40) m/uL Hct (34.0-46.0) % RDW (11.5-15.5) % Plt Count (150-450) k/uL Glucose (74-99) mg/dL POC Glucose (mg/dL) 159 H 129 H 133 H (75-99) mg/dL 11/23/16 Range/Units 20:35 RBC (3.80-5.40) m/uL Hct (34.0-46.0) % RDW (11.5-15.5) % Plt Count (150-450) k/uL Glucose (74-99) mg/dL POC Glucose (mg/dL) 113 H (75-99) mg/dL Microbiology - Last 24 Hours (Table) 11/19/16 20:38 Blood Culture - Preliminary Blood No Growth after 72 hours Laboratory Results WBC 5.2 k/uL (3.8-10.6) 11/23/16 07:21 RBC 3.75 m/uL (3.80-5.40) L 11/23/16 07:21 Hgb 11.6 gm/dL (11.4-16.0) 11/23/16 07:21 Hct 33.3 % (34.0-46.0) L 11/23/16 07:21 MCV 88.8 fL (80.0-100.0) 11/23/16 07:21 MCH 30.8 pg (25.0-35.0) 11/23/16 07:21 MCHC 34.7 g/dL (31.0-37.0) 11/23/16 07:21 RDW 16.7 % (11.5-15.5) H 11/23/16 07:21 Plt Count 71 k/uL (150-450) L 11/23/16 07:21 Neutrophils % 63 % 11/23/16 07:21 Lymphocytes % 23 % 11/23/16 07:21 Monocytes % 7 % 11/23/16 07:21 Eosinophils % 4 % 11/23/16 07:21 Basophils % 1 % 11/23/16 07:21 Neutrophils # 3.3 k/uL (1.3-7.7) 11/23/16 07:21 Lymphocytes # 1.2 k/uL (1.0-4.8) 11/23/16 07:21 Monocytes # 0.3 k/uL (0-1.0) 11/23/16 07:21 Eosinophils # 0.2 k/uL (0-0.7) 11/23/16 07:21 Basophils # 0.0 k/uL (0-0.2) 11/23/16 07:21 Manual Slide Review Performed 11/19/16 20:38 Hypochromasia Slight 11/23/16 07:21 Poikilocytosis Slight 11/23/16 07:21 Anisocytosis Slight 11/23/16 07:21 Sodium 141 mmol/L (137-145) 11/23/16 07:21 Potassium 4.0 mmol/L (3.5-5.1) 11/23/16 07:21 Chloride 106 mmol/L (98-107) 11/23/16 07:21 Carbon Dioxide 28 mmol/L (22-30) 11/23/16 07:21 Anion Gap 7 mmol/L 11/23/16 07:21 BUN 16 mg/dL (7-17) 11/23/16 07:21 Creatinine 0.68 mg/dL (0.52-1.04) 11/23/16 07:21 Est GFR (MDRD) Af Amer >60 (>60 ml/min/1.73 sqM) 11/23/16 07:21 Est GFR (MDRD) Non-Af >60 (>60 ml/min/1.73 sqM) 11/23/16 07:21 Glucose 137 mg/dL (74-99) H 11/23/16 07:21 POC Glucose (mg/dL) 113 mg/dL (75-99) H 11/23/16 20:35 POC Glu Lining Baster RON Elsa Cole 11/23/16 20:[address] Glu mg/dL 189 mg/dL 11/20/16 07:41 Hemoglobin A1c 8.2 % (4.2-6.1) H 11/20/16 07:41 Plasma Lactic Acid Marquise 1.6 mmol/L (0.7-2.0) 11/19/16 20:38 Calcium 8.5 mg/dL (8.4-10.2) 11/23/16 07:21 Total Bilirubin 0.5 mg/dL (0.2-1.3) 11/22/16 08:37 AST 27 U/L (14-36) 11/22/16 08:37 ALT 37 U/L (9-52) 11/22/16 08:37 Alkaline Phosphatase 96 U/L (38-126) 11/22/16 08:37 Total Protein 6.3 g/dL (6.3-8.2) 11/22/16 08:37 Albumin 3.4 g/dL (3.5-5.0) L 11/22/16 08:37 Urine Color Yellow 11/19/16 20:38 Urine Appearance Clear (Clear) 11/19/16 20:38 Urine pH 6.0 (5.0-8.0) 11/19/16 20:38 Ur Specific [place] 1.013 (1.001-1.035) 11/19/16 20:38 Urine Protein Negative (Negative) 11/19/16 20:38 Urine Glucose (UA) Trace (Negative) H 11/19/16 20:38 Urine Ketones Negative (Negative) 11/19/16 20:38 Urine Blood Negative (Negative) 11/19/16 20:38 Urine Nitrite Negative (Negative) 11/19/16 20:38 Urine Bilirubin Negative (Negative) 11/19/16 20:38 Urine Urobilinogen <2.0 mg/dL (<2.0) 11/19/16 20:38 Ur Leukocyte Esterase Negative (Negative) 11/19/16 20:38 Vancomycin Trough 17.9 ug/mL 11/21/16 22:11 Acetone, Qual Negative (Negative) 11/19/16 20:38 Microbiology 11/19/16 20:38 Blood Blood Culture - Preliminary No Growth after 72 hours 11/19/16 20:38 Leg - Right Gram Stain - Final 11/19/16 20:38 Leg - Right Wound Culture - Final Staphylococcus aureus Assessment and Plan Plan: 60-year-old with sudden onset of cellulitis of right lower extremity. Local wound care will commence with the Silvadene dressing and wraps. Antibiotic therapy with vancomycin continues at this time. Cultures reveal MSSA Vanco changed to Cefazolin. Patient concerned to possibility of shingles. No lesions are seen. She be monitored closely. Elevation of the limbs at rest. No other new cultures noted. When ready for discharge to home will be on oral cefadroxil 500 mg every 12 hours for 7 days. Prescription is sent to her pharmacy.
[2016-11-23 23:39] LABS: Glucose,Whole Blood 147 mg/dL (75-99)
[2016-11-24] MEDS: SODIUM CHLORIDE 0.9% 1,000 ML IV SCH ×2 (00:50→13:21)
[2016-11-24] MEDS: HYDROcodone/APAP 10-325MG 1 EACH TAB PO PRN (05:07)
[2016-11-24 07:40] LABS: Glucose,Whole Blood 187 mg/dL (75-99)
[2016-11-24 07:50] VITALS: BP 128/53; PULSE 78; RESP 19; TEMP 97.6
[2016-11-24] MEDS: ceFAZolin 2 GM in SODIUM CHLORIDE 0.9% 100 ML IVPB SCH (08:09)
[2016-11-24] MEDS: ASPIRIN 81 MG CHEW PO SCH (08:09)
[2016-11-24] MEDS: HEPARIN SODIUM,PORCINE 5,000 UNIT/ML 1 ML VIAL SQ SCH (08:09)
[2016-11-24] MEDS: TRIAMTERENE-HCTZ 37.5-25MG 1 EACH CAP PO SCH (08:09)
[2016-11-24] MEDS: LEVOTHYROXINE 88 MCG TAB PO SCH (08:10)
[2016-11-24] MEDS: valACYclovir HCL 1,000 MG TABLET PO SCH (08:10)
[2016-11-24] MEDS: PREGABALIN 75 MG CAP PO SCH (08:15)
[2016-11-24] MEDS: INSULIN LISPRO (humaLOG) 300 UNIT/3 ML VIAL SQ SCH ×4 (08:16→13:19)
[2016-11-24 08:43] LABS: Anisocytosis Slight; Basophils % (A) 0 %; CH 29.9; CHCM 32.7; Eosinophils # (A) 0.2 k/uL (0-0.7); Eosinophils % (A) 5 %; HDW 3.57; HGB 11.8 gm/dL (11.4-16.0); Hypochromasia Slight; Luc # (Auto) 0.09; Luc % (Auto) 2; Lymphocytes % (A) 20 %; MCH 29.5 pg (25.0-35.0); MCHC 31.8 g/dL (31.0-37.0); MCV 92.5 fL (80.0-100.0); Mean Platelet Volume 9.3; Monocytes # (A) 0.3 k/uL (0-1.0); Monocytes % (A) 6 %; Neutrophils # (A) 3.3 k/uL (1.3-7.7); Neutrophils % (A) 68 %; Poikilocytosis Slight; RDW 17.6 % (11.5-15.5); WBC 4.9 k/uL (3.8-10.6); WBC (Perox) 5.27
[2016-11-24 09:12] LABS: Anion Gap 9 mmol/L; Blood Urea Nitrogen 16 mg/dL (7-17); Calcium 8.9 mg/dL (8.4-10.2); Carbon Dioxide 27 mmol/L (22-30); Chloride 106 mmol/L (98-107); Glucose 188 mg/dL (74-99); Non-African American GFR(MDRD) >60 (>60 ml/min/1.73 sqM); Potassium 4.4 mmol/L (3.5-5.1); Sodium 142 mmol/L (137-145)
[2016-11-24] MEDS: CYCLOBENZAPRINE 10 MG TAB PO SCH (09:57)
[2016-11-24] MEDS: metFORMIN 850 MG TAB PO SCH (09:57)
[2016-11-24] MEDS: INSULIN GLARGINE 100 UNIT/ML 10 ML VIAL SQ SCH (09:57)
[2016-11-24] MEDS: LORATADINE 10 MG TAB PO SCH (09:57)
[2016-11-24 12:05] LABS: Glucose,Whole Blood 177 mg/dL (75-99)
--- NOTE | 2016-11-24 13:01 | P.DS ---
Providers Date of admission: 11/19/16 22:19 Expected date of discharge: 11/24/16 Attending physician: Lilibeth Seymour Consults: 11/20/16 10:57 Consult Physician Routine Consulting Provider: Chris Nielsen Consult Reason/Comments: Cellulitis of the right leg Do you want consulting provider notified?: Yes Primary care physician: Lilibeth Seymour [facility] Hospital Course: Discharge diagnosis 1. Right lower extremity cellulitis: Patient has been started on IV vancomycin. Continue with IV fluids. ID consult has been placed. X-ray of the right tibia-fibula shows no evidence of osteomyelitis or fracture it is showing subcutaneous edema. Venous Doppler is negative for DVT. Antibiotics adjusted by infectious disease. Vancomycin discontinued and they have started on cefazolin . Patient has had improvement in her cellulitis. Wound culture growing Staphylococcus aureus. Anticipate discharge possibly tomorrow. 2. Mild protein calorie malnutrition: Start Glucerna shakes 3. Chronic thrombocytopenia: Patient near baseline 4. Diabetes mellitus type 2: Continue current Lantus and Humalog. Blood sugars are stable 5. Previous history of diabetic foot ulcer and osteomyelitis requiring wound care services 6. History of bipolar 7. Hyperlipidemia continue Lipitor 8. Hypothyroidism continue Synthroid 9. Morbid obesity Hospital course This is a 60-year-old female who has a known past medical history of diabetes, diabetic foot ulcers, osteomyelitis of the left foot, morbid obesity, COPD, hyperlipidemia, obstructive sleep apnea, bipolar and hypothyroidism. Patient presents to the emergency room with complaints of increased redness and burning sensation along the right tibia. She reports a small blister on the right tibia that popped open with a greenish discharge. She came into the emergency room for further evaluation and treatment she has been admitted to the hospital for right lower extremity cellulitis. Patient does report pain with palpation of bilateral calves a venous Doppler has been ordered. She's followed up with Dr. Nielsen at the wound care center for her healed left diabetic foot ulcer. She's been started on IV vancomycin. She's also given IV fluids. X-ray of the right tibia-fibula shows no evidence of any osteomyelitis or fracture does show subcutaneous edema. Patient does admit to having some chills and low-grade temps at home. She denies any nausea vomiting. Denies any bowel movement changes or urinary symptoms. She is bottle followed by infectious disease. Initially started on vancomycin for concerns of MRSA. However will culture grew MSSA. Vagal Meissen discontinued and patient was started on Kefzol. Cellulitis did improve and she is stable for discharge home on Duricef 500 mg by mouth every 12 hours for 7 more days per infectious disease. Patient medically stable for discharge she's had improvement in symptoms. Please refer to chart for any further details. Patient Condition at Discharge: Stable Plan - Discharge Summary New Discharge Prescriptions: New Cefadroxil [Duricef] 500 mg PO Q12HR #14 cap Continue Albuterol Inhaler [Ventolin Hfa Inhaler] 1 puff INHALATION RT-QID PRN PRN Reason: Shortness Of Breath Cyclobenzaprine [Flexeril] 10 mg PO BID@1000,2100 metFORMIN HCL [Glucophage] 850 mg PO BID@1000,2100 Simvastatin [Zocor] 40 mg PO HS@2100 Insulin Glargine [Lantus] 100 unit SQ QAM@1000 Cetirizine HCl 10 mg PO DAILY@1000 HYDROcodone/APAP 10-325MG [[place] 10-325] 1 tab PO Q8H PRN PRN Reason: Pain INSULIN LISPRO (humaLOG) [humaLOG (formulary)] 30 unit SQ TID-W/MEALS Pregabalin [Lyrica] 150 mg PO BID Albuterol Sulfate 2.5 mg INHALATION RT-QID PRN PRN Reason: Shortness Of Breath Insulin Glargine [Lantus] 80 unit SQ HS Latanoprost Ophth [Xalatan 0.005%] 1 drop BOTH EYES HS Aspirin EC [Ecotrin Low Dose] 81 mg PO DAILY valACYclovir HCL [Valacyclovir] 1,000 mg PO TID #21 tab Triamterene-Hctz 37.5-25Mg [Dyazide 37.5-25 Capsule] 1 cap PO DAILY Levothyroxine Sodium [Synthroid] 88 mcg PO DAILY Discharge Medication List Albuterol Inhaler [Ventolin Hfa Inhaler] 1 puff INHALATION RT-QID PRN 02/18/14 [ History] Cyclobenzaprine [Flexeril] 10 mg PO BID@1000,209902/18/14 [History] Simvastatin [Zocor] 40 mg PO HS@2100 02/18/14 [History] metFORMIN HCL [Glucophage] 850 mg PO BID@1000,209902/18/14 [History] Insulin Glargine [Lantus] 100 unit SQ QAM@1000 07/12/14 [History] Cetirizine HCl 10 mg PO DAILY@1000 10/25/14 [History] HYDROcodone/APAP 10-325MG [[place] 10-325] 1 tab PO Q8H PRN 06/18/15 [History] INSULIN LISPRO (humaLOG) [humaLOG (formulary)] 30 unit SQ TID-W/MEALS 06/18/15 [ History] Pregabalin [Lyrica] 150 mg PO BID 06/19/15 [History] Albuterol Sulfate 2.5 mg INHALATION RT-QID PRN 12/14/15 [History] Insulin Glargine [Lantus] 80 unit SQ HS 12/14/15 [History] Latanoprost Ophth [Xalatan 0.005%] 1 drop BOTH EYES HS 12/14/15 [History] Aspirin EC [Ecotrin Low Dose] 81 mg PO DAILY 06/01/16 [History] valACYclovir HCL [Valacyclovir] 1,000 mg PO TID #21 tab 11/10/16 [Rx] Levothyroxine Sodium [Synthroid] 88 mcg PO DAILY 11/19/16 [History] Triamterene-Hctz 37.5-25Mg [Dyazide 37.5-25 Capsule] 1 cap PO DAILY 11/19/16 [ History] Cefadroxil [Duricef] 500 mg PO Q12HR #14 cap 11/23/16 [Rx] Follow up Appointment(s)/Referral(s): Lilibeth Seymour MD [Primary Care Provider] - 12/01/16 11:30 am Patient Instructions/Handouts: Cellulitis (DC) Activity/Diet/Wound Care/Special Instructions: Cardiac, diabetic diet. Diabetic folder given. Activity as tolerated. Continue to clean leg daily and keep elevated at rest. Antibiotics prescribed for infection, take until completely gone. Discharge Disposition: HOME SELF-CARE
== END 2016-11-24 14:38 | disposition home or self-care (01) | DRG 603 ==
LOC: EC 19:37 → 4MS4W 22:19
PROVIDERS: ADMIT Internal Medicine; ATTEND Internal Medicine
DX: L03.115 Cellulitis of right lower limb (principal); D69.6 Thrombocytopenia, unspecified; E44.1 Mild protein-calorie malnutrition; E66.01 Morbid (severe) obesity due to excess calories; B02.9 Zoster without complications; E03.9 Hypothyroidism, unspecified; E11.9 Type 2 diabetes mellitus without complications; E78.5 Hyperlipidemia, unspecified; F12.90 Cannabis use, unspecified, uncomplicated; F32.9 Major depressive disorder, single episode, unspecified; F60.3 Borderline personality disorder; G47.33 Obstructive sleep apnea (adult) (pediatric); H40.9 Unspecified glaucoma; H66.91 Otitis media, unspecified, right ear; J44.9 Chronic obstructive pulmonary disease, unspecified; K59.00 Constipation, unspecified; Z79.4 Long term (current) use of insulin; Z79.899 Other long term (current) drug therapy; Z82.49 Family history of ischemic heart disease and other diseases of the circulatory system; Z87.891 Personal history of nicotine dependence; Z88.0 Allergy status to penicillin; B95.61 Methicillin susceptible Staphylococcus aureus infection as the cause of diseases classified elsewhere
CPT/HCPCS: 36415; 80048; 80053; 80202; 81003; 82009; 83036; 83605; 85025; 87040; 87070; 87077; 87186; 87205; 93970; 96360; 99284

== ENCOUNTER 2016-12-29 05:56 | Emergency (ER) | payer OTHER ==
[2016-12-29] MEDS ORDERED: KETOROLAC 60 MG/2 ML VIAL IM STA (06:02)
--- NOTE | 2016-12-29 06:06 | ED ---
General Adult HPI - General Source: RN notes reviewed <Chan Jensen - Last Filed: 12/29/16 06:59> <Abebe Cosme - Last Filed: 12/29/16 07:37> - General Stated complaint: Fall Time Seen by Provider: 12/29/16 05:56 - History of Present Illness Initial comments: This is a 61-year-old woman who presents to the emergency department complaining of lower back and tailbone pain. Patient states she went to pick her granddaughter up fell backwards and landed on her tailbone ever since then her tailbone hurts significantly. 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 Patient denies any head trauma or neck pain. Patient denies any numbness or weakness. Patient denies any upper back pain. Patient denies any extremity pain. Patient's only complaint is the tailbone pain. (Chan Jensen) - Related Data Home Medications Medication Instructions Recorded Confirmed Albuterol Inhaler [Ventolin Hfa 1 puff INHALATION RT-QID PRN 02/18/14 11/19/16 Inhaler] Cyclobenzaprine [Flexeril] 10 mg PO BID@1000,209902/18/14 11/19/16 Simvastatin [Zocor] 40 mg PO HS@209902/18/14 11/19/16 metFORMIN HCL [Glucophage] 850 mg PO BID@1000,209902/18/14 11/19/16 Insulin Glargine [Lantus] 100 unit SQ QAM@1000 07/12/14 11/19/16 Cetirizine HCl 10 mg PO DAILY@1000 10/25/14 11/19/16 HYDROcodone/APAP 10-325MG [[place] 1 tab PO Q8H PRN 06/18/15 11/19/16 10-325] INSULIN LISPRO (humaLOG) [humaLOG 30 unit SQ TID-W/MEALS 06/18/15 11/19/16 (formulary)] Pregabalin [Lyrica] 150 mg PO BID 06/19/15 11/19/16 Albuterol Sulfate 2.5 mg INHALATION RT-QID PRN 12/14/15 11/19/16 Insulin Glargine [Lantus] 80 unit SQ HS 12/14/15 11/19/16 Latanoprost Ophth [Xalatan 0.005%] 1 drop BOTH EYES HS 12/14/15 11/19/16 Aspirin EC [Ecotrin Low Dose] 81 mg PO DAILY 06/01/16 11/19/16 Levothyroxine Sodium [Synthroid] 88 mcg PO DAILY 11/19/16 11/19/16 Triamterene-Hctz 37.5-25Mg 1 cap PO DAILY 11/19/16 11/19/16 [Dyazide 37.5-25 Capsule] Previous Rx's Medication Instructions Recorded valACYclovir HCL [Valacyclovir] 1,000 mg PO TID #21 tab 11/10/16 Cefadroxil [Duricef] 500 mg PO Q12HR #14 cap 11/23/16 Ibuprofen 800 mg PO Q6HR PRN #20 tablet 12/29/16 Allergies Allergy/AdvReac Type Severity Reaction Status Date / Time Penicillins Allergy Anaphylaxis Verified 11/19/16 20:51 Review of Systems ROS Other: All systems not noted in ROS Statement are negative. <Chan Jensen - Last Filed: 12/29/16 06:59> ROS Other: All systems not noted in ROS Statement are negative. <Abebe Cosme - Last Filed: 12/29/16 07:37> ROS Statement: Those systems with pertinent positive or pertinent negative responses have been documented in the HPI. Past Medical History Past Medical History: Asthma, Cancer, COPD, Diabetes Mellitus, Eye Disorder, Hyperlipidemia, Musculoskeletal Disorder, Neurologic Disorder, Osteoarthritis ( OA), Sleep Apnea/CPAP/BIPAP, Thyroid Disorder Additional Past Medical History / Comment(s): History of osteomyelitis left #3 toe and left calf: 2004. History of Any Multi-Drug Resistant Organisms: None Reported Past Surgical History: Section, Cholecystectomy, Hysterectomy, Orthopedic Surgery, Tonsillectomy, Tubal Ligation Additional Past Surgical History / Comment(s): cataracts and laser surgery for glaucoma. Multiple I&D to left foot and lower leg. Past Anesthesia/Blood Transfusion Reactions: No Reported Reaction Past Psychological History: Bipolar, Depression Additional Psychological History / Comment(s): Borderline personality Smoking Status: Former smoker Past Alcohol Use History: None Reported Additional Past Alcohol Use History / Comment(s): Patient was a smoker of 2 packs per day for 21 years and quit in 1992. She does use marijuana on occasional basis. She denies any medical marijuana card. She denies any alcohol use or abuse. She is currently living at home and one adult son is living with her. She has been on disability. She is mostly wheelchair bound. Medically disabled. No international travel. No animals in the home. Daughter with her child and child's father live in the basement of the home. The child has been ill with diarrhea. Also had a fever Past Drug Use History: None Reported - Past Family History Father Family Medical History: Congestive Heart Failure (CHF), Coronary Artery Disease (CAD), Myocardial Infarction ([place]) Mother Family Medical History: Coronary Artery Disease (CAD), CVA/TIA, Dementia, Myocardial Infarction ([place]) <Chan Jensen - Last Filed: 12/29/16 06:59> General Exam <Chan Jensen - Last Filed: 12/29/16 06:59> <Abebe Cosme - Last Filed: 12/29/16 07:37> - General Exam Comments Initial Comments: GENERAL: Patient is well-developed and well-nourished. Patient is nontoxic and well- hydrated and is in mild distress. ENT: Neck is soft and supple. No significant lymphadenopathy is noted. Oropharynx is clear. Moist mucous membranes. Neck has full range of motion without eliciting any pain. EYES: The sclera were anicteric and conjunctiva were pink and moist. Extraocular movements were intact and pupils were equal round and reactive to light. Eyelids were unremarkable. PULMONARY: Unlabored respirations. Good breath sounds bilaterally. No audible rales rhonchi or wheezing was noted. CARDIOVASCULAR: There is a regular rate and rhythm without any murmurs gallops or rubs. ABDOMEN: Soft and nontender with normal bowel sounds. SKIN: Skin is clear with no lesions or rashes and otherwise unremarkable. NEUROLOGIC: Patient is alert and oriented x3. Cranial nerves II through XII are grossly intact. Motor and sensory are also intact. Normal speech, volume and content. Symmetrical smile. MUSCULOSKELETAL: Normal extremities with adequate strength and full range of motion. No lower extremity swelling or edema. Patient has some tenderness in the coccyx area LYMPHATICS: No significant lymphadenopathy is noted PSYCHIATRIC: Normal psychiatric evaluation. (Chan Jensen) Course <Chan Jensen - Last Filed: 12/29/16 06:59> <Abebe Cosme - Last Filed: 12/29/16 07:37> Vital Signs 12/29/16 06:00 Temperature 97.4 F L Pulse Rate 75 Respiratory 17 Rate Blood Pressure 153/74 - Reevaluation(s) Reevaluation #1: 12/29/16 07:34 The patient was endorsed to me by Dr. Jensen at our shift change. I did review the x-rays and reports degenerative changes noted in the low back no evidence of acute fractures seen to the lumbar spine and coccyx or sacrum. I did discuss this with the patient she'll be discharged on appropriate pain medication she is follow-up with her doctor and return when necessary (Abebe Cosme) Medical Decision Making <Chan Jensen - Last Filed: 12/29/16 06:59> <Abebe Cosme - Last Filed: 12/29/16 07:37> - Medical Decision Making Dr. Cosme will gladly take over the care of this patient at 7 AM (Chan Jensen ) - Lab Data Lab Results 12/29/16 Range/Units 06:08 POC Glucose (mg/dL) 369 H (75-99) mg/dL POC Glu Test Tube Maker ID Sofia Valdovinos Disposition <Chan Jensen - Last Filed: 12/29/16 06:59> <Abebe Cosme - Last Filed: 12/29/16 07:37> Clinical Impression: Strain of lumbar region, Coccyx contusion Disposition: HOME SELF-CARE Condition: Good Instructions: Acute Low Back Pain (ED), Contusion in Adults (ED) Prescriptions: Ibuprofen 800 mg PO Q6HR PRN #20 tablet PRN Reason: Pain Referrals: Lilibeth Seymour MD [Primary Care Provider] - 1-2 days
[2016-12-29 06:14] LABS: Glucose,Whole Blood 369 mg/dL (75-99)
--- NOTE | 2016-12-29 07:04 | XR ---
EXAM: XR Lumbar Spine, 4 or 5 Views CLINICAL HISTORY: Reason: Pain TECHNIQUE: Frontal, lateral and oblique views of the lumbar spine. COMPARISON: CT abdomen and pelvis 06/01/2016 FINDINGS: Vertebrae: No acute fracture or malalignment. Disc spaces: Mild disc height loss and small osteophytes. Soft tissues: Unremarkable. Vasculature: Atherosclerotic calcification of the abdominal aorta. IMPRESSION: Mild degenerative changes of the lumbar spine.
--- NOTE | 2016-12-29 07:04 | XR ---
EXAM: XR Sacrum and Coccyx, 2 or more Views CLINICAL HISTORY: Reason: Pain TECHNIQUE: Frontal and lateral views of the sacrum and coccyx. COMPARISON: No relevant prior studies available. FINDINGS: Sacrum/coccyx: Unremarkable as visualized. No acute fracture. Vertebrae: No acute fracture or malalignment. Disc spaces: Degenerative changes of the lumbar spine. Soft tissues: Surgical clips project over the pelvis. IMPRESSION: No acute findings.
[2016-12-29 08:07] VITALS: BP 126/60; PULSE 73; RESP 18; TEMP 98.1
== END 2016-12-29 08:04 | disposition home or self-care (01) ==
LOC: EC 05:56
DX: S39.012A Strain of muscle, fascia and tendon of lower back, initial encounter (principal); S30.0XXA Contusion of lower back and pelvis, initial encounter; E11.9 Type 2 diabetes mellitus without complications; E78.5 Hyperlipidemia, unspecified; E07.9 Disorder of thyroid, unspecified; G47.30 Sleep apnea, unspecified; Z99.89 Dependence on other enabling machines and devices; Z85.9 Personal history of malignant neoplasm, unspecified; Z87.891 Personal history of nicotine dependence; Z79.4 Long term (current) use of insulin; Z79.82 Long term (current) use of aspirin; Z79.899 Other long term (current) drug therapy; Z88.0 Allergy status to penicillin; W19.XXXA Unspecified fall, initial encounter
CPT/HCPCS: 36415; 72110; 72220; 99284; 96372; J1885

== ENCOUNTER → 2017-02-08 | Outpatient (CLI) | payer OTHER ==
[2017-02-08 16:07] LABS: Blood Urea Nitrogen 14 mg/dL (7-17); Non-African American GFR(MDRD) >60 (>60 ml/min/1.73 sqM)
--- NOTE | 2017-02-08 17:14 | CT ---
EXAMINATION TYPE: CT brain wo/w con DATE OF EXAM: 02/08/2017 COMPARISON: 02/14/2016 HISTORY: Right homonymous visual field defect. CT DLP: 2072.00 mGycm Automated exposure control for dose reduction was used. CONTRAST: CT scan of the head is performed without and with IV Contrast, patient injected with 100 mL of Omnipa que 300. FINDINGS: Ventricles have normal size. There is no mass effect nor midline shift. There is no sign of intracran ial hemorrhage. There is no pathologic enhancement. The calvarium is intact. IMPRESSION: Negative CT scan of the brain. No evidence of cortical infarct. No change compared to old exam.
== END | disposition home or self-care (01) ==
LOC: RADCTMAIN 15:24
PROVIDERS: ATTEND Ophthalmology
DX: H53.461 Homonymous bilateral field defects, right side (principal); E11.9 Type 2 diabetes mellitus without complications
CPT/HCPCS: 82565; 84520; 70470; 36415; Q9967

== ENCOUNTER 2017-02-22 21:01 | Emergency (ER) | payer OTHER ==
[2017-02-22 21:28] LABS: Glucose,Whole Blood 345 mg/dL (75-99)
--- NOTE | 2017-02-22 21:55 | XR ---
EXAMINATION TYPE: XR chest 1V portable DATE OF EXAM: 02/22/2017 COMPARISON: 02/14/2017 HISTORY: Short of breath TECHNIQUE: Single frontal view of the chest is obtained. FINDINGS: There is no heart failure nor confluent pneumonic infiltrate. Costophrenic angles are melanie r. Heart size is normal. Bony thorax appears intact. Exam is limited by patient size. IMPRESSION: No active cardiopulmonary disease. No change.
[2017-02-22 22:08] LABS: Basophils % (A) 1 %; CH 27.3; CHCM 32.4; Eosinophils # (A) 0.2 k/uL (0-0.7); Eosinophils % (A) 3 %; HCT 36.8 % (34.0-46.0); HDW 3.74; HGB 11.7 gm/dL (11.4-16.0); Hypochromasia Slight; Luc # (Auto) 0.13; Luc % (Auto) 2; Lymphocytes # (A) 1.1 k/uL (1.0-4.8); Lymphocytes % (A) 21 %; MCH 26.9 pg (25.0-35.0); MCHC 31.8 g/dL (31.0-37.0); MCV 84.8 fL (80.0-100.0); Mean Platelet Volume 7.8; Monocytes # (A) 0.3 k/uL (0-1.0); Monocytes % (A) 5 %; Neutrophils # (A) 3.6 k/uL (1.3-7.7); Neutrophils % (A) 67 %; Poikilocytosis Slight; RBC 4.34 m/uL (3.80-5.40); RDW 15.2 % (11.5-15.5); WBC 5.4 k/uL (3.8-10.6); WBC (Perox) 5.43
[2017-02-22 22:15] LABS: Glucose 368 mg/dL (74-99)
[2017-02-22 22:16] LABS: ALT 40 U/L (9-52); AST 20 U/L (14-36); Alkaline Phosphatase 84 U/L (38-126); Anion Gap 8 mmol/L; Blood Urea Nitrogen 15 mg/dL (7-17); Calcium 8.7 mg/dL (8.4-10.2); Carbon Dioxide 28 mmol/L (22-30); Chloride 104 mmol/L (98-107); Non-African American GFR(MDRD) >60 (>60 ml/min/1.73 sqM); Potassium 3.5 mmol/L (3.5-5.1); Sodium 140 mmol/L (137-145); Total Bilirubin 0.4 mg/dL (0.2-1.3); Total Protein 6.4 g/dL (6.3-8.2)
[2017-02-22 22:19] LABS: INR 1.3 (<1.2); Partial Thromboplastin Time 36.3 sec (22.0-30.0); Prothrombin Time 12.8 sec (9.0-12.0)
[2017-02-22 22:23] LABS: Manual Review Performed
[2017-02-22 22:26] LABS: Creatine Kinase 33 U/L (30-135)
[2017-02-22 22:40] LABS: Creatine Kinase MB 0.4 ng/mL (0.0-2.4); Troponin I <0.012 ng/mL (0.000-0.034)
[2017-02-22] MEDS ORDERED: SODIUM CHLORIDE 0.9% 1,000 ML IV ONE (22:54)
[2017-02-22] MEDS ORDERED: INSULIN REGULAR 100 UNIT/ML VIAL SQ STA (22:54)
[2017-02-22] MEDS ORDERED: RX INFO: IV CONTRAST WAS GIVEN 1 EACH MISC MISCELLANE PRN (22:57)
--- NOTE | 2017-02-22 23:43 | CT ---
EXAMINATION TYPE: CT chest angio for PE DATE OF EXAM: 02/22/2017 COMPARISON: 06/18/2015 HISTORY: r/o pe CT DLP: 1236.20 mGycm Automated exposure control for dose reduction was used. CONTRAST: CT Chest for pulmonary embolism performed with with IV Contrast, patient injected with 60 mL of Omnip aque 350. FINDINGS: There are 3-D post processed images. The lungs are clear of consolidation. There is no evidence of a pulmonary mass. There is no pleural e ffusion. There is no pericardial effusion. Spleen is enlarged and measures 18 cm. Heart size is normal. I see no filling defects in the pulmonary arteries. There are no hilar masses. There is no mediastinal adenopathy. The bony thorax is intact. IMPRESSION: No evidence of pulmonary embolism. Splenomegaly. No change compared to last exam. There is clearing o f the atelectasis at the lung bases compared to last exam.
--- NOTE | 2017-02-23 00:54 | ED ---
SOB HPI - General Chief Complaint: Shortness of Breath Stated Complaint: ROB Time Seen by Provider: 02/22/17 21:14 Source: family, EMS Mode of arrival: EMS Limitations: no limitations - History of Present Illness Initial Comments: This patient is a 61-year-old woman who presents to be evaluated for shortness of breath. The patient states that she had been using her PICC line for antibiotics. The PICC line had been pulled and she was afraid that it had been dislodged. She was then short of breath but she does not believe this is entirely due to anxiety. Patient did feel some chest discomfort but she denies jovi pain. MD Complaint: shortness of breath -: hour(s) Severity: mild Quality: dull Consistency: constant Improves With: nothing Worsens With: nothing Associated Symptoms: denies other symptoms - Related Data Home Medications Medication Instructions Recorded Confirmed Albuterol Inhaler [Ventolin Hfa 1 puff INHALATION RT-QID PRN 02/18/14 03/13/17 Inhaler] Cyclobenzaprine [Flexeril] 10 mg PO BID@1000,209902/18/14 03/13/17 Simvastatin [Zocor] 40 mg PO HS@209902/18/14 03/13/17 metFORMIN HCL [Glucophage] 850 mg PO BID@1000,209902/18/14 03/13/17 Cetirizine HCl 10 mg PO DAILY@1000 10/25/14 03/13/17 HYDROcodone/APAP 10-325MG [[place] 1 tab PO Q8H PRN 06/18/15 03/13/17 10-325] INSULIN LISPRO (humaLOG) [humaLOG] 30 unit SQ TID-W/MEALS 06/18/15 03/13/17 Pregabalin [Lyrica] 150 mg PO BID 06/19/15 03/13/17 Albuterol Sulfate 2.5 mg INHALATION RT-QID PRN 12/14/15 03/13/17 Latanoprost Ophth [Xalatan 0.005%] 1 drop BOTH EYES HS 12/14/15 03/13/17 Aspirin EC [Ecotrin Low Dose] 81 mg PO DAILY 06/01/16 03/13/17 Levothyroxine Sodium [Synthroid] 88 mcg PO DAILY 11/19/16 03/13/17 Triamterene-Hctz 37.5-25Mg 1 cap PO BID 11/19/16 03/13/17 [Dyazide 37.5-25 Capsule] Vancomycin 1,500 mg IVPB Q12H 03/06/17 03/13/17 Previous Rx's Medication Instructions Recorded Insulin Detemir [Levemir] 52 unit SQ BID syr 02/21/17 Allergies Allergy/AdvReac Type Severity Reaction Status Date / Time Penicillins Allergy Anaphylaxis Verified 03/13/17 14:12 Review of Systems ROS Statement: Those systems with pertinent positive or pertinent negative responses have been documented in the HPI. ROS Other: All systems not noted in ROS Statement are negative. Constitutional: Denies: fever, chills Respiratory: Reports: as per HPI, dyspnea. Denies: cough, wheezes, hemoptysis Cardiovascular: Reports: as per HPI, chest pain. Denies: palpitations, edema, syncope Gastrointestinal: Denies: abdominal pain, nausea, vomiting Genitourinary: Denies: dysuria, hematuria Musculoskeletal: Denies: back pain Skin: Denies: rash Past Medical History Past Medical History: Asthma, Cancer, COPD, Diabetes Mellitus, Eye Disorder, Hyperlipidemia, Musculoskeletal Disorder, Neurologic Disorder, Osteoarthritis ( OA), Sleep Apnea/CPAP/BIPAP, Thyroid Disorder Additional Past Medical History / Comment(s): History of osteomyelitis left #3 toe and left calf: 2004. cervical cancer History of Any Multi-Drug Resistant Organisms: None Reported Past Surgical History: Section, Cholecystectomy, Hysterectomy, Orthopedic Surgery, Tonsillectomy, Tubal Ligation Additional Past Surgical History / Comment(s): cataracts and laser surgery for glaucoma. Multiple I&D to left foot and lower leg. Past Anesthesia/Blood Transfusion Reactions: No Reported Reaction Past Psychological History: Bipolar, Depression Smoking Status: Former smoker Past Alcohol Use History: None Reported Past Drug Use History: Marijuana - Past Family History Father Family Medical History: Congestive Heart Failure (CHF), Coronary Artery Disease (CAD), Myocardial Infarction ([place]) Mother Family Medical History: Coronary Artery Disease (CAD), CVA/TIA, Dementia, Myocardial Infarction ([place]) General Exam Limitations: no limitations General appearance: alert, in no apparent distress, obese Head exam: Present: atraumatic, normocephalic Eye exam: Present: normal appearance. Absent: scleral icterus, conjunctival injection Neck exam: Present: normal inspection, full ROM Respiratory exam: Present: normal lung sounds bilaterally. Absent: respiratory distress, wheezes, rales, rhonchi Cardiovascular Exam: Present: regular rate, normal rhythm, normal heart sounds. Absent: systolic murmur, diastolic murmur, rubs, gallop GI/Abdominal exam: Present: soft. Absent: distended, tenderness, guarding, rebound Extremities exam: Present: normal inspection, normal capillary refill. Absent: pedal edema, calf tenderness Back exam: Present: normal inspection. Absent: CVA tenderness (R), CVA tenderness (L) Neurological exam: Present: alert Skin exam: Present: warm, dry, intact, normal color. Absent: rash Course Vital Signs 02/22/17 02/22/17 02/22/17 21:02 21:54 22:07 Temperature 97.5 F L Pulse Rate 99 92 Respiratory 22 20 20 Rate Blood Pressure 172/73 129/62 O2 Sat by Pulse 99 97 Oximetry 02/23/17 02/23/17 00:00 01:00 Temperature 98.9 F Pulse Rate 88 96 Respiratory 16 17 Rate Blood Pressure 147/65 160/67 O2 Sat by Pulse 100 98 Oximetry Medical Decision Making - Medical Decision Making Patient is 61-year-old woman in for dyspnea. She had a small issue with her PICC line but that appears to be functioning properly. Patient on do not believe that dyspnea is due to solely to anxiety. Workup reveals hyperglycemia and there is also elevated d-dimer but the patient's CT is negative for PE. She is feeling better here and wishes to go home. - Lab Data Result diagrams: 02/22/17 21:14 02/22/17 21:14 Lab Results 02/22/17 02/22/17 02/22/17 Range/Units 21:14 21:14 21:14 WBC 5.4 (3.8-10.6) k/uL RBC 4.34 (3.80-5.40) m/uL Hgb 11.7 (11.4-16.0) gm/dL Hct 36.8 (34.0-46.0) % MCV 84.8 (80.0-100.0) fL MCH 26.9 (25.0-35.0) pg MCHC 31.8 (31.0-37.0) g/dL RDW 15.2 (11.5-15.5) % Plt Count 80 L (150-450) k/uL Neutrophils % 67 % Lymphocytes % 21 % Monocytes % 5 % Eosinophils % 3 % Basophils % 1 % Neutrophils # 3.6 (1.3-7.7) k/uL Lymphocytes # 1.1 (1.0-4.8) k/uL Monocytes # 0.3 (0-1.0) k/uL Eosinophils # 0.2 (0-0.7) k/uL Basophils # 0.0 (0-0.2) k/uL Manual Slide Review Performed Hypochromasia Slight Poikilocytosis Slight PT (9.0-12.0) sec INR (<1.2) APTT (22.0-30.0) sec D-Dimer (<0.60) mg/L FEU Sodium 140 (137-145) mmol/L Potassium 3.5 (3.5-5.1) mmol/L Chloride 104 (98-107) mmol/L Carbon Dioxide 28 (22-30) mmol/L Anion Gap 8 mmol/L BUN 15 (7-17) mg/dL Creatinine 0.80 (0.52-1.04) mg/dL Est GFR (MDRD) Af Amer >60 (>60 ml/min/1.73 sqM) Est GFR (MDRD) Non-Af >60 (>60 ml/min/1.73 sqM) Glucose 368 H (74-99) mg/dL POC Glucose (mg/dL) (75-99) mg/dL POC Glu Tape Coater ID Calcium 8.7 (8.4-10.2) mg/dL Total Bilirubin 0.4 (0.2-1.3) mg/dL AST 20 (14-36) U/L ALT 40 (9-52) U/L Alkaline Phosphatase 84 (38-126) U/L Total Creatine Kinase 33 (30-135) U/L CK-MB (CK-2) 0.4 (0.0-2.4) ng/mL CK-MB (CK-2) Rel Index 1.2 Troponin I <0.012 (0.000-0.034) ng/mL NT-Pro-B Natriuret Pep pg/mL Total Protein 6.4 (6.3-8.2) g/dL Albumin 3.1 L (3.5-5.0) g/dL 02/22/17 02/22/17 02/22/17 Range/Units 21:14 21:14 21:26 WBC (3.8-10.6) k/uL RBC (3.80-5.40) m/uL Hgb (11.4-16.0) gm/dL Hct (34.0-46.0) % MCV (80.0-100.0) fL MCH (25.0-35.0) pg MCHC (31.0-37.0) g/dL RDW (11.5-15.5) % Plt Count (150-450) k/uL Neutrophils % % Lymphocytes % % Monocytes % % Eosinophils % % Basophils % % Neutrophils # (1.3-7.7) k/uL Lymphocytes # (1.0-4.8) k/uL Monocytes # (0-1.0) k/uL Eosinophils # (0-0.7) k/uL Basophils # (0-0.2) k/uL Manual Slide Review Hypochromasia Poikilocytosis PT 12.8 H (9.0-12.0) sec INR 1.3 H (<1.2) APTT 36.3 H (22.0-30.0) sec D-Dimer 1.19 H (<0.60) mg/L FEU Sodium (137-145) mmol/L Potassium (3.5-5.1) mmol/L Chloride (98-107) mmol/L Carbon Dioxide (22-30) mmol/L Anion Gap mmol/L BUN (7-17) mg/dL Creatinine (0.52-1.04) mg/dL Est GFR (MDRD) Af Amer (>60 ml/min/1.73 sqM) Est GFR (MDRD) Non-Af (>60 ml/min/1.73 sqM) Glucose (74-99) mg/dL POC Glucose (mg/dL) 345 H (75-99) mg/dL POC Glu Tape Coater ID Lisa Martinez Calcium (8.4-10.2) mg/dL Total Bilirubin (0.2-1.3) mg/dL AST (14-36) U/L ALT (9-52) U/L Alkaline Phosphatase (38-126) U/L Total Creatine Kinase (30-135) U/L CK-MB (CK-2) (0.0-2.4) ng/mL CK-MB (CK-2) Rel Index Troponin I (0.000-0.034) ng/mL NT-Pro-B Natriuret Pep 137 pg/mL Total Protein (6.3-8.2) g/dL Albumin (3.5-5.0) g/dL Disposition Clinical Impression: Syncope, near Disposition: HOME SELF-CARE Condition: Fair Instructions: Lightheadedness (ED) Referrals: Lilibeth Seymour MD [Primary Care Provider] - 1-2 days
[2017-02-23 01:02] VITALS: BP 160/67; PULSE 96; RESP 17; TEMP 98.9
== END 2017-02-23 01:20 | disposition home or self-care (01) ==
LOC: EC 21:01
DX: R55 Syncope and collapse (principal); R06.02 Shortness of breath; R79.1 Abnormal coagulation profile; E11.65 Type 2 diabetes mellitus with hyperglycemia; E78.5 Hyperlipidemia, unspecified; M19.90 Unspecified osteoarthritis, unspecified site; E07.9 Disorder of thyroid, unspecified; G58.9 Mononeuropathy, unspecified; H57.9 Unspecified disorder of eye and adnexa; E66.9 Obesity, unspecified; Z87.891 Personal history of nicotine dependence; Z79.4 Long term (current) use of insulin; Z79.82 Long term (current) use of aspirin; Z79.899 Other long term (current) drug therapy; Z88.0 Allergy status to penicillin; Z68.42 Body mass index [BMI] 45.0-49.9, adult; Z85.41 Personal history of malignant neoplasm of cervix uteri; Z90.710 Acquired absence of both cervix and uterus; Z95.828 Presence of other vascular implants and grafts; Z82.49 Family history of ischemic heart disease and other diseases of the circulatory system
CPT/HCPCS: 36415; 93005; 85379; 83880; 80053; 82550; 82553; 84484; 85025; 85610; 85730; 71010; 71275; 99285; 96360; 96361; Q9967

== ENCOUNTER 2017-05-17 14:48 | Emergency (ER) | payer OTHER ==
[2017-05-17] MEDS ORDERED: SODIUM CHLORIDE 0.9% 1,000 ML IV STA (15:43)
--- NOTE | 2017-05-17 15:43 | ED ---
Psych HPI - General Chief Complaint: Psychiatric Symptoms Stated Complaint: Mental Health Time Seen by Provider: 05/17/17 15:34 Source: patient Mode of arrival: wheelchair Limitations: no limitations - History of Present Illness Initial Comments: Patient presents for depression. Patient states she has a history of bipolar, schizophrenia, depression. Patient states she was institutionalized for 5 weeks approximately 40 years ago. Patient denies suicidal or homicidal ideation. Pt states "I'm definitely not suicidal, I would never do that". Pt states "she keeps me alive" in reference to her granddaughter she helps take care of. Patient states she is feeling more depressed and stressed out because she is had multiple medical issues recently including ulcer on her foot requiring a wound VAC and IV antibiotics via PICC line. Patient states her glucose readings were high at 2 days ago, states there were 300 today. Patient denies any changes in her diabetic medications. Patient denies fevers, chills, nausea, vomiting. Patient states she has not seen a psychiatrist in a very long time. States her psychiatric medications are managed by her primary care physician. She states her main reason for coming to the ER if she feels she may need an adjustment in her depression medications. MD Complaint: feels depressed - Related Data Home Medications Medication Instructions Recorded Confirmed Albuterol Inhaler [Ventolin Hfa 1 - 2 puff INHALATION RT-QID PRN 02/18/14 Inhaler] Cyclobenzaprine [Flexeril] 10 mg PO BID@1000,209902/18/14 05/17/17 Simvastatin [Zocor] 40 mg PO HS@209902/18/14 05/17/17 metFORMIN HCL [Glucophage] 850 mg PO BID@1000,209902/18/14 05/17/17 Cetirizine HCl 10 mg PO DAILY@1000 10/25/14 05/17/17 INSULIN LISPRO (humaLOG) [humaLOG] See Protocol SQ TID-W/MEALS 06/18/15 05/17/17 Albuterol Sulfate 2.5 mg INHALATION RT-QID PRN 12/14/15 05/17/17 Latanoprost Ophth [Xalatan 0.005%] 1 drop BOTH EYES HS 12/14/15 05/17/17 Aspirin EC [Ecotrin Low Dose] 81 mg PO DAILY@1000 06/01/16 05/17/17 Levothyroxine Sodium [Synthroid] 88 mcg PO DAILY@0930 11/19/16 05/17/17 Pregabalin [Lyrica] 100 mg PO BID@1000,2100 03/26/17 05/17/17 Venlafaxine HCl [Effexor XR] 150 mg PO DAILY@1000 03/26/17 05/17/17 Collagenase [Santyl] 1 applic TOPICAL DAILY PRN 05/17/17 05/17/17 Daptomycin 700mg 700 mg IV HS@1800 05/17/17 05/17/17 Insulin Glargine,Hum.rec.anlog 80 unit SQ AC-SUPPER 05/17/17 05/17/17 [Basaglar Kwikpen U-100] Insulin Glargine,Hum.rec.anlog 100 unit SQ AC-BRKFST 05/17/17 05/17/17 [Basaglar Kwikpen U-100] Nystatin 100,000Unit/gm Cream 1 applic TOPICAL TID PRN 05/17/17 05/17/17 [Mycostatin Cream] Triamterene-Hctz 37.5-25Mg 1 tab PO BID@1000,1400 05/17/17 05/17/17 [Maxzide 37.5-25] Previous Rx's Medication Instructions Recorded HYDROcodone/APAP 10-325MG [[place] 1 tab PO Q8H PRN #42 tab 03/30/17 10-325] Allergies Allergy/AdvReac Type Severity Reaction Status Date / Time Penicillins Allergy Anaphylaxis Verified 05/17/17 16:06 Review of Systems ROS Statement: Those systems with pertinent positive or pertinent negative responses have been documented in the HPI. ROS Other: All systems not noted in ROS Statement are negative. Constitutional: Denies: fever, chills, weakness Eyes: Denies: eye pain ENT: Denies: throat pain, congestion Respiratory: Denies: cough, dyspnea Cardiovascular: Denies: chest pain, palpitations, syncope Endocrine: Denies: fatigue, polydipsia, polyuria Gastrointestinal: Denies: abdominal pain, nausea, vomiting, diarrhea, constipation Genitourinary: Denies: urgency, dysuria, frequency, hematuria Musculoskeletal: Denies: back pain Skin: Reports: other (chronic foot wound). Denies: rash Neurological: Denies: headache Past Medical History Past Medical History: Asthma, Cancer, COPD, Diabetes Mellitus, Eye Disorder, Hyperlipidemia, Musculoskeletal Disorder, Neurologic Disorder, Osteoarthritis ( OA), Sleep Apnea/CPAP/BIPAP, Thyroid Disorder Additional Past Medical History / Comment(s): History of osteomyelitis left #3 toe and left calf: 2004. cervical cancer History of Any Multi-Drug Resistant Organisms: MRSA Date of last positivie culture/infection: 03/20/17 MDRO Source:: MRSA HEEL Past Surgical History: Section, Cholecystectomy, Hysterectomy, Orthopedic Surgery, Tonsillectomy, Tubal Ligation Additional Past Surgical History / Comment(s): cataracts and laser surgery for glaucoma. Multiple I&D to left foot and lower leg. Past Anesthesia/Blood Transfusion Reactions: No Reported Reaction Past Psychological History: Anxiety, Bipolar, Depression Smoking Status: Former smoker Past Alcohol Use History: None Reported Past Drug Use History: Marijuana - Past Family History Father Family Medical History: Congestive Heart Failure (CHF), Coronary Artery Disease (CAD), Myocardial Infarction ([place]) Mother Family Medical History: Coronary Artery Disease (CAD), CVA/TIA, Dementia, Myocardial Infarction ([place]) General Exam - General Exam Comments Initial Comments: Sitting up on side of bed. Tearful. Appears depressed. Calm, pleasant. Not ill appearing. Limitations: no limitations, language barrier General appearance: alert Head exam: Present: atraumatic, normocephalic Eye exam: Present: normal appearance, PERRL, EOMI ENT exam: Present: mucous membranes moist Neck exam: Present: normal inspection Respiratory exam: Present: normal lung sounds bilaterally. Absent: respiratory distress, wheezes, rales, rhonchi, accessory muscle use, decreased breath sounds Cardiovascular Exam: Present: regular rate, normal rhythm GI/Abdominal exam: Present: soft, other (Obese). Absent: distended, tenderness , guarding, rebound, rigid Extremities exam: Present: normal capillary refill, other (Wound VAC to right foot, clean bandages and walking boot in place. PICC line left upper extremity , clean dry intact, no signs of infection.) Neurological exam: Present: alert, oriented X3 Psychiatric exam: Present: depressed. Absent: homicidal ideation, suicidal ideation Skin exam: Present: warm, dry Course Vital Signs 05/17/17 15:24 Temperature 98.5 F Pulse Rate 80 Respiratory 18 Rate Blood Pressure 143/65 O2 Sat by Pulse 98 Oximetry Medical Decision Making - Medical Decision Making Patient is very clear in that she is not suicidal, she just feeling more stressed out and depressed over recent medical problems, states she wants a review of her psychiatric medications. Agency and evaluated in the ER by psychiatric team, patient given outpatient referrals, patient cleared for discharge from psychiatric team. White blood cell count within normal range. Glucose 290. Patient instructed to follow primary care physician for management of her hyperglycemia. Patient understands and agrees. All questions answered. We'll discharge home at this time. - Lab Data Result diagrams: 05/17/17 16:00 05/17/17 16:00 Lab Results 05/17/17 05/17/17 05/17/17 Range/Units 15:56 16:00 16:00 WBC 6.2 (3.8-10.6) k/uL RBC 4.28 (3.80-5.40) m/uL Hgb 11.9 (11.4-16.0) gm/dL Hct 37.0 (34.0-46.0) % MCV 86.3 (80.0-100.0) fL MCH 27.7 (25.0-35.0) pg MCHC 32.1 (31.0-37.0) g/dL RDW 16.1 H (11.5-15.5) % Plt Count 86 L (150-450) k/uL Neutrophils % 65 % Lymphocytes % 22 % Monocytes % 5 % Eosinophils % 6 % Basophils % 1 % Neutrophils # 4.0 (1.3-7.7) k/uL Lymphocytes # 1.4 (1.0-4.8) k/uL Monocytes # 0.3 (0-1.0) k/uL Eosinophils # 0.4 (0-0.7) k/uL Basophils # 0.1 (0-0.2) k/uL Hypochromasia Moderate Poikilocytosis Slight Anisocytosis Slight Sodium (137-145) mmol/L Potassium (3.5-5.1) mmol/L Chloride (98-107) mmol/L Carbon Dioxide (22-30) mmol/L Anion Gap mmol/L BUN (7-17) mg/dL Creatinine (0.52-1.04) mg/dL Est GFR (MDRD) Af Amer (>60 ml/min/1.73 sqM) Est GFR (MDRD) Non-Af (>60 ml/min/1.73 sqM) Glucose (74-99) mg/dL POC Glucose (mg/dL) 280 H (75-99) mg/dL POC Glu Nurse Intern Vero Saldaña Calcium (8.4-10.2) mg/dL Urine Color Urine Appearance (Clear) Urine pH (5.0-8.0) Ur Specific [place] (1.001-1.035) Urine Protein (Negative) Urine Glucose (UA) (Negative) Urine Ketones (Negative) Urine Blood (Negative) Urine Nitrite (Negative) Urine Bilirubin (Negative) Urine Urobilinogen (<2.0) mg/dL Ur Leukocyte Esterase (Negative) Salicylates <1.0 mg/dL Urine Opiates Screen (NotDetected) Ur Oxycodone Screen (NotDetected) Urine Methadone Screen (NotDetected) Ur Propoxyphene Screen (NotDetected) Acetaminophen <10.0 ug/mL Ur Barbiturates Screen (NotDetected) U Tricyclic Antidepress (NotDetected) Ur Phencyclidine Scrn (NotDetected) Ur Amphetamines Screen (NotDetected) U Methamphetamines Scrn (NotDetected) U Benzodiazepines Scrn (NotDetected) Urine Cocaine Screen (NotDetected) U Marijuana (THC) Screen (NotDetected) 05/17/17 05/17/17 Range/Units 16:00 16:25 WBC (3.8-10.6) k/uL RBC (3.80-5.40) m/uL Hgb (11.4-16.0) gm/dL Hct (34.0-46.0) % MCV (80.0-100.0) fL MCH (25.0-35.0) pg MCHC (31.0-37.0) g/dL RDW (11.5-15.5) % Plt Count (150-450) k/uL Neutrophils % % Lymphocytes % % Monocytes % % Eosinophils % % Basophils % % Neutrophils # (1.3-7.7) k/uL Lymphocytes # (1.0-4.8) k/uL Monocytes # (0-1.0) k/uL Eosinophils # (0-0.7) k/uL Basophils # (0-0.2) k/uL Hypochromasia Poikilocytosis Anisocytosis Sodium 140 (137-145) mmol/L Potassium 4.3 (3.5-5.1) mmol/L Chloride 105 (98-107) mmol/L Carbon Dioxide 25 (22-30) mmol/L Anion Gap 10 mmol/L BUN 18 H (7-17) mg/dL Creatinine 0.70 (0.52-1.04) mg/dL Est GFR (MDRD) Af Amer >60 (>60 ml/min/1.73 sqM) Est GFR (MDRD) Non-Af >60 (>60 ml/min/1.73 sqM) Glucose 290 H (74-99) mg/dL POC Glucose (mg/dL) (75-99) mg/dL POC Glu Nurse Intern ID Calcium 8.9 (8.4-10.2) mg/dL Urine Color Light Yellow Urine Appearance Clear (Clear) Urine pH 6.5 (5.0-8.0) Ur Specific [place] 1.008 (1.001-1.035) Urine Protein Negative (Negative) Urine Glucose (UA) 1+ H (Negative) Urine Ketones Negative (Negative) Urine Blood Negative (Negative) Urine Nitrite Negative (Negative) Urine Bilirubin Negative (Negative) Urine Urobilinogen <2.0 (<2.0) mg/dL Ur Leukocyte Esterase Negative (Negative) Salicylates mg/dL Urine Opiates Screen Detected H (NotDetected) Ur Oxycodone Screen Not Detected (NotDetected) Urine Methadone Screen Not Detected (NotDetected) Ur Propoxyphene Screen Not Detected (NotDetected) Acetaminophen ug/mL Ur Barbiturates Screen Not Detected (NotDetected) U Tricyclic Antidepress Not Detected (NotDetected) Ur Phencyclidine Scrn Not Detected (NotDetected) Ur Amphetamines Screen Not Detected (NotDetected) U Methamphetamines Scrn Not Detected (NotDetected) U Benzodiazepines Scrn Not Detected (NotDetected) Urine Cocaine Screen Not Detected (NotDetected) U Marijuana (THC) Screen Not Detected (NotDetected) Disposition Clinical Impression: Hyperglycemia, Depression Disposition: HOME SELF-CARE Condition: Good Instructions: Depression (ED), Diabetic Hyperglycemia (ED) Additional Instructions: Follow-up with psychiatric referrals provided by psychiatric team. Follow primary care physician for management of medication and diabetes. Return to ER for new or worsening symptoms. Referrals: Lilibeth Seymour MD [Primary Care Provider] - 1-2 days
[2017-05-17 16:03] LABS: Glucose,Whole Blood 280 mg/dL (75-99)
[2017-05-17 16:20] LABS: Anisocytosis Slight; Basophils # (A) 0.1 k/uL (0-0.2); Basophils % (A) 1 %; Eosinophils # (A) 0.4 k/uL (0-0.7); Eosinophils % (A) 6 %; HGB 11.9 gm/dL (11.4-16.0); Hypochromasia Moderate; Lymphocytes # (A) 1.4 k/uL (1.0-4.8); Lymphocytes % (A) 22 %; MCH 27.7 pg (25.0-35.0); MCHC 32.1 g/dL (31.0-37.0); MCV 86.3 fL (80.0-100.0); Monocytes # (A) 0.3 k/uL (0-1.0); Monocytes % (A) 5 %; Neutrophils % (A) 65 %; Poikilocytosis Slight; RBC 4.28 m/uL (3.80-5.40); RDW 16.1 % (11.5-15.5); WBC 6.2 k/uL (3.8-10.6)
[2017-05-17 16:22] LABS: Mean Platelet Volume 8.2; Platelet Count 86 k/uL (150-450)
[2017-05-17 16:26] LABS: Acetaminophen <10.0 ug/mL; Salicylate <1.0 mg/dL
[2017-05-17 16:40] LABS: Appearance,Urine Clear (Clear); Bilirubin,Urine Negative (Negative); Blood,Urine Negative (Negative); Color,Urine Light Yellow; Glucose,Urine (UA) 1+ (Negative); Ketones,Urine Negative (Negative); Leukocyte Esterase,Urine Negative (Negative); Nitrite,Urine Negative (Negative); PH, Urine 6.5 (5.0-8.0); Protein,Urine Negative (Negative); Specific Gravity,Urine 1.008 (1.001-1.035); Urobilinogen,Urine <2.0 mg/dL (<2.0)
[2017-05-17 16:53] LABS: Amphetamine Screen,Urine Not Detected (NotDetected); Barbiturate Screen,Urine Not Detected (NotDetected); Benzodiazepines Screen,Urine Not Detected (NotDetected); Cocaine Screen,Urine Not Detected (NotDetected); Methadone Screen, Urine Not Detected (NotDetected); Opiate Screen,Urine Detected (NotDetected); Oxycodone Screen, Urine Not Detected (NotDetected); Phencyclidine Screen,Urine Not Detected (NotDetected); Tricyclic Antidepressant,Urine Not Detected (NotDetected); Urn Cannabinoid Scrn Not Detected (NotDetected)
[2017-05-17 17:16] LABS: Anion Gap 10 mmol/L; Blood Urea Nitrogen 18 mg/dL (7-17); Calcium 8.9 mg/dL (8.4-10.2); Carbon Dioxide 25 mmol/L (22-30); Chloride 105 mmol/L (98-107); Glucose 290 mg/dL (74-99); Potassium 4.3 mmol/L (3.5-5.1); Sodium 140 mmol/L (137-145)
[2017-05-17 17:39] VITALS: BP 139/80; PULSE 83; RESP 20; TEMP 98.3
== END 2017-05-17 17:38 | disposition home or self-care (01) ==
LOC: EC 14:48
DX: E11.65 Type 2 diabetes mellitus with hyperglycemia (principal); F32.9 Major depressive disorder, single episode, unspecified; E78.5 Hyperlipidemia, unspecified; M19.90 Unspecified osteoarthritis, unspecified site; G47.30 Sleep apnea, unspecified; E07.9 Disorder of thyroid, unspecified; F41.9 Anxiety disorder, unspecified; Z86.14 Personal history of Methicillin resistant Staphylococcus aureus infection; Z87.891 Personal history of nicotine dependence; Z99.89 Dependence on other enabling machines and devices; Z88.0 Allergy status to penicillin; Z79.4 Long term (current) use of insulin; Z79.84 Long term (current) use of oral hypoglycemic drugs; Z79.82 Long term (current) use of aspirin; Z79.899 Other long term (current) drug therapy
CPT/HCPCS: 36415; 80048; 80306; 81003; 82075; 83520; 85025; 96360; 96361; 99284

== ENCOUNTER 2017-05-24 18:10 | Inpatient (IN) | payer OTHER ==
[2017-05-24] MEDS ORDERED: SODIUM CHLORIDE 0.9% 1,000 ML IV STA (18:24)
[2017-05-24] MEDS ORDERED: ACETAMINOPHEN TAB 500 MG TAB PO STA (18:24)
[2017-05-24 18:50] LABS: Anisocytosis Slight; Basophils % (A) 1 %; Eosinophils # (A) 0.2 k/uL (0-0.7); Eosinophils % (A) 4 %; HCT 38.1 % (34.0-46.0); HGB 12.3 gm/dL (11.4-16.0); Hypochromasia Slight; Lymphocytes # (A) 0.6 k/uL (1.0-4.8); Lymphocytes % (A) 9 %; MCH 27.4 pg (25.0-35.0); MCHC 32.2 g/dL (31.0-37.0); MCV 85.2 fL (80.0-100.0); Mean Platelet Volume 7.5; Monocytes # (A) 0.1 k/uL (0-1.0); Monocytes % (A) 1 %; Neutrophils # (A) 5.3 k/uL (1.3-7.7); Neutrophils % (A) 85 %; Platelet Count 104 k/uL (150-450); Poikilocytosis Slight; RBC 4.47 m/uL (3.80-5.40); RDW 16.6 % (11.5-15.5); WBC 6.2 k/uL (3.8-10.6)
--- NOTE | 2017-05-24 18:54 | ED ---
General Adult HPI - General Chief complaint: Fever Stated complaint: Flu Symptoms Time Seen by Provider: 05/24/17 18:18 Source: patient, EMS, RN notes reviewed Mode of arrival: EMS Limitations: no limitations - History of Present Illness Initial comments: 61 yo female presents to the ER with cc of fever. Patient is currently in outpatient [facility] for a right foot MRSA infection that she currently has a wound VAC on and she's been following up with Dr. Jimenez for. She states that also today she developed a high fever. She felt kind of nauseous and had vomiting with possibly some diarrhea.. She states she felt shaky and was shivering. She denies any cough cold. She denies any redness around the infection site. She denies any diarrhea. They state they were concerned due to the sudden high fever so they thought that they should be evaluated. Patient denies any recent shortness of breath, chest pain, back pain, abdominal pain, numbness or tingling, dysuria or hematuria, constipation, headaches or visual changes, or any other current symptoms. - Related Data Home Medications Medication Instructions Recorded Confirmed Albuterol Inhaler [Ventolin Hfa 1 - 2 puff INHALATION RT-QID PRN 02/18/14 Inhaler] Cyclobenzaprine [Flexeril] 10 mg PO BID@999,209902/18/14 05/24/17 Simvastatin [Zocor] 40 mg PO HS@209902/18/14 05/24/17 metFORMIN HCL [Glucophage] 850 mg PO BID@999,209902/18/14 05/24/17 Cetirizine HCl 10 mg PO DAILY@99910/25/14 05/24/17 INSULIN LISPRO (humaLOG) [humaLOG] See Protocol SQ TID-W/MEALS 06/18/15 05/24/17 Albuterol Sulfate 2.5 mg INHALATION RT-QID PRN 12/14/15 05/24/17 Latanoprost Ophth [Xalatan 0.005%] 1 drop BOTH EYES HS 12/14/15 05/24/17 Aspirin EC [Ecotrin Low Dose] 81 mg PO DAILY@1000 06/01/16 05/24/17 Levothyroxine Sodium [Synthroid] 88 mcg PO DAILY@0911/19/16 05/24/17 Pregabalin [Lyrica] 100 mg PO BID@1000,2100 03/26/17 05/24/17 Venlafaxine HCl [Effexor XR] 150 mg PO DAILY@1000 03/26/17 05/24/17 Daptomycin 700mg 700 mg IV HS@1800 05/17/17 05/24/17 Insulin Glargine,Hum.rec.anlog 80 unit SQ AC-SUPPER 05/17/17 05/24/17 [Basaglar Kwikpen U-100] Insulin Glargine,Hum.rec.anlog 100 unit SQ AC-BRKFST 05/17/17 05/24/17 [Basaglar Kwikpen U-100] Nystatin 100,000Unit/gm Cream 1 applic TOPICAL TID PRN 05/17/17 05/24/17 [Mycostatin Cream] Triamterene-Hctz 37.5-25Mg 1 tab PO BID@1000,1400 05/17/17 05/24/17 [Maxzide 37.5-25] Previous Rx's Medication Instructions Recorded HYDROcodone/APAP 10-325MG [[place] 1 tab PO Q8H PRN #42 tab 03/30/17 10-325] Allergies Allergy/AdvReac Type Severity Reaction Status Date / Time Penicillins Allergy Anaphylaxis Verified 05/24/17 19:00 Review of Systems ROS Statement: Those systems with pertinent positive or pertinent negative responses have been documented in the HPI. ROS Other: All systems not noted in ROS Statement are negative. Past Medical History Past Medical History: Asthma, Cancer, COPD, Diabetes Mellitus, Eye Disorder, Hyperlipidemia, Musculoskeletal Disorder, Neurologic Disorder, Osteoarthritis ( OA), Sleep Apnea/CPAP/BIPAP, Thyroid Disorder Additional Past Medical History / Comment(s): History of osteomyelitis left #3 toe and left calf: 2004. cervical cancer (in remission.) History of Any Multi-Drug Resistant Organisms: MRSA Date of last positivie culture/infection: 03/20/17 MDRO Source:: MRSA HEEL Past Surgical History: Section, Cholecystectomy, Hysterectomy, Orthopedic Surgery, Tonsillectomy, Tubal Ligation Additional Past Surgical History / Comment(s): cataracts and laser surgery for glaucoma. Multiple I&D to left foot and lower leg. Past Anesthesia/Blood Transfusion Reactions: No Reported Reaction Past Psychological History: Anxiety, Bipolar, Depression Smoking Status: Former smoker Past Alcohol Use History: None Reported Past Drug Use History: Marijuana - Past Family History Father Family Medical History: Congestive Heart Failure (CHF), Coronary Artery Disease (CAD), Myocardial Infarction ([place]) Mother Family Medical History: Coronary Artery Disease (CAD), CVA/TIA, Dementia, Myocardial Infarction ([place]) General Exam Limitations: no limitations General appearance: alert, in no apparent distress Eye exam: Present: normal appearance, PERRL, EOMI. Absent: scleral icterus, conjunctival injection, periorbital swelling ENT exam: Present: normal exam, mucous membranes moist Neck exam: Present: normal inspection. Absent: tenderness, meningismus, lymphadenopathy Respiratory exam: Present: normal lung sounds bilaterally. Absent: respiratory distress, wheezes, rales, rhonchi, stridor Cardiovascular Exam: Present: regular rate, normal rhythm, normal heart sounds. Absent: systolic murmur, diastolic murmur, rubs, gallop, clicks GI/Abdominal exam: Present: soft, normal bowel sounds. Absent: distended, tenderness, guarding, rebound, rigid Neurological exam: Present: alert, oriented X3 Psychiatric exam: Present: normal affect, normal mood Skin exam: Present: warm, dry, other (Patient's wound VAC does appear intact with no associated erythema around the area.) Course Vital Signs 05/24/17 05/24/17 18:14 19:58 Temperature 101.3 F H 99.4 F Pulse Rate 100 97 Respiratory 22 18 Rate Blood Pressure 147/65 152/63 O2 Sat by Pulse 97 95 Oximetry Procedures - Procedures Initial comment: PICC line was removed by myself. Patient tolerated well. A sample was sent to lab. Medical Decision Making - Medical Decision Making 61-year-old female presents for fever. At this time the patient's lab work is been reviewed that does appear to be stable. Patient did present with a fever she has a PICC line in currently on Vanco with a history of MRSA. At this time we do not see the source for infection it could be gastritis however there is concern for possible bacteremia anemia. At this time we will admit the patient we will continue the Vanco we will admit to Dr. Rene who does agree to the admission and consult Dr. Ng. Patient is in agreement this plan. - Lab Data Result diagrams: 05/24/17 18:32 05/24/17 18:32 Lab Results 05/24/17 05/24/1718 Range/Units 18:32 18:32 18:32 WBC 6.2 (3.8-10.6) k/uL RBC 4.47 (3.80-5.40) m/uL Hgb 12.3 (11.4-16.0) gm/dL Hct 38.1 (34.0-46.0) % MCV 85.2 (80.0-100.0) fL MCH 27.4 (25.0-35.0) pg MCHC 32.2 (31.0-37.0) g/dL RDW 16.6 H (11.5-15.5) % Plt Count 104 L (150-450) k/uL Neutrophils % 85 % Lymphocytes % 9 % Monocytes % 1 % Eosinophils % 4 % Basophils % 1 % Neutrophils # 5.3 (1.3-7.7) k/uL Lymphocytes # 0.6 L (1.0-4.8) k/uL Monocytes # 0.1 (0-1.0) k/uL Eosinophils # 0.2 (0-0.7) k/uL Basophils # 0.0 (0-0.2) k/uL Hypochromasia Slight Poikilocytosis Slight Anisocytosis Slight PT (9.0-12.0) sec INR (<1.2) APTT (22.0-30.0) sec Sodium 142 (137-145) mmol/L Potassium 3.8 (3.5-5.1) mmol/L Chloride 107 (98-107) mmol/L Carbon Dioxide 24 (22-30) mmol/L Anion Gap 11 mmol/L BUN 15 (7-17) mg/dL Creatinine 0.80 (0.52-1.04) mg/dL Est GFR (MDRD) Af Amer >60 (>60 ml/min/1.73 sqM) Est GFR (MDRD) Non-Af >60 (>60 ml/min/1.73 sqM) Glucose 138 H (74-99) mg/dL Plasma Lactic Acid Marquise (0.7-2.0) mmol/L Calcium 8.7 (8.4-10.2) mg/dL Total Bilirubin 0.8 (0.2-1.3) mg/dL AST 28 (14-36) U/L ALT 26 (9-52) U/L Alkaline Phosphatase 103 (38-126) U/L Total Protein 6.4 (6.3-8.2) g/dL Albumin 3.2 L (3.5-5.0) g/dL Urine Color Urine Appearance (Clear) Urine pH (5.0-8.0) Ur Specific Reubens (1.001-1.035) Urine Protein (Negative) Urine Glucose (UA) (Negative) Urine Ketones (Negative) Urine Blood (Negative) Urine Nitrite (Negative) Urine Bilirubin (Negative) Urine Urobilinogen (<2.0) mg/dL Ur Leukocyte Esterase (Negative) Urine RBC (0-5) /hpf Urine WBC (0-5) /hpf Ur Squamous Epith Cells (0-4) /hpf Urine Bacteria (None) /hpf Urine Mucus (None) /hpf Influenza Type A RNA Not Detected (Not Detectd) Influenza Type B (PCR) Not Detected (Not Detectd) 05/24/17 05/24/17 05/24/17 Range/Units 18:32 18:32 19:40 WBC (3.8-10.6) k/uL RBC (3.80-5.40) m/uL Hgb (11.4-16.0) gm/dL Hct (34.0-46.0) % MCV (80.0-100.0) fL MCH (25.0-35.0) pg MCHC (31.0-37.0) g/dL RDW (11.5-15.5) % Plt Count (150-450) k/uL Neutrophils % % Lymphocytes % % Monocytes % % Eosinophils % % Basophils % % Neutrophils # (1.3-7.7) k/uL Lymphocytes # (1.0-4.8) k/uL Monocytes # (0-1.0) k/uL Eosinophils # (0-0.7) k/uL Basophils # (0-0.2) k/uL Hypochromasia Poikilocytosis Anisocytosis PT 12.0 (9.0-12.0) sec INR 1.3 H (<1.2) APTT 24.7 (22.0-30.0) sec Sodium (137-145) mmol/L Potassium (3.5-5.1) mmol/L Chloride (98-107) mmol/L Carbon Dioxide (22-30) mmol/L Anion Gap mmol/L BUN (7-17) mg/dL Creatinine (0.52-1.04) mg/dL Est GFR (MDRD) Af Amer (>60 ml/min/1.73 sqM) Est GFR (MDRD) Non-Af (>60 ml/min/1.73 sqM) Glucose (74-99) mg/dL Plasma Lactic Acid Marquise 2.0 (0.7-2.0) mmol/L Calcium (8.4-10.2) mg/dL Total Bilirubin (0.2-1.3) mg/dL AST (14-36) U/L ALT (9-52) U/L Alkaline Phosphatase (38-126) U/L Total Protein (6.3-8.2) g/dL Albumin (3.5-5.0) g/dL Urine Color Yellow Urine Appearance Clear (Clear) Urine pH 5.5 (5.0-8.0) Ur Specific Reubens 1.011 (1.001-1.035) Urine Protein Trace H (Negative) Urine Glucose (UA) Negative (Negative) Urine Ketones Negative (Negative) Urine Blood Trace H (Negative) Urine Nitrite Negative (Negative) Urine Bilirubin Negative (Negative) Urine Urobilinogen <2.0 (<2.0) mg/dL Ur Leukocyte Esterase Negative (Negative) Urine RBC 4 (0-5) /hpf Urine WBC 1 (0-5) /hpf Ur Squamous Epith Cells 2 (0-4) /hpf Urine Bacteria Rare H (None) /hpf Urine Mucus Rare H (None) /hpf Influenza Type A RNA (Not Detectd) Influenza Type B (PCR) (Not Detectd) - Radiology Data Radiology results: report reviewed, image reviewed Disposition Clinical Impression: Fever, MRSA cellulitis of right foot, Nausea & vomiting Disposition: ADMITTED IP TO THIS [facility] Condition: Stable Referrals: Lilibeth Seymour MD [Primary Care Provider] - 1-2 days Decision Date: 05/24/17 Decision Time: 20:08
[2017-05-24 19:01] LABS: ALT 26 U/L (9-52); AST 28 U/L (14-36); Albumin 3.2 g/dL (3.5-5.0); Alkaline Phosphatase 103 U/L (38-126); Anion Gap 11 mmol/L; Blood Urea Nitrogen 15 mg/dL (7-17); Calcium 8.7 mg/dL (8.4-10.2); Carbon Dioxide 24 mmol/L (22-30); Chloride 107 mmol/L (98-107); Glucose 138 mg/dL (74-99); Potassium 3.8 mmol/L (3.5-5.1); Sodium 142 mmol/L (137-145); Total Bilirubin 0.8 mg/dL (0.2-1.3); Total Protein 6.4 g/dL (6.3-8.2)
[2017-05-24 19:03] LABS: INR 1.3 (<1.2); Partial Thromboplastin Time 24.7 sec (22.0-30.0)
--- NOTE | 2017-05-24 19:51 | XR ---
EXAMINATION: XR chest 2V DATE AND TIME: 05/24/2017 6:55 PM ORDERING PROVIDER: Heide Garcia CLINICAL INDICATION: cough fever and dyspnea and body aches TECHNIQUE: AP and lateral COMPARISON: 02/22/2017 DESCRIPTION: The lungs are clear. The pleural spaces are negative. The cardiac silhouette is not enlarged. The skeletal structures are intact without focal findings. The overlying soft tissues are prominent. IMPRESSION: NO ACUTE RADIOGRAPHIC PROCESS.
[2017-05-24 19:55] LABS: Appearance,Urine Clear (Clear); Bacteria,Urine Rare /hpf; Bilirubin,Urine Negative (Negative); Blood,Urine Trace (Negative); Color,Urine Yellow; Glucose,Urine (UA) Negative (Negative); Ketones,Urine Negative (Negative); Leukocyte Esterase,Urine Negative (Negative); Mucus,Urine Rare /hpf; Nitrite,Urine Negative (Negative); PH, Urine 5.5 (5.0-8.0); Protein,Urine Trace (Negative); RBC,Urine 4 /hpf (0-5); Specific Gravity,Urine 1.011 (1.001-1.035); Squamous Epithelial Cell,Urine 2 /hpf (0-4); Urobilinogen,Urine <2.0 mg/dL (<2.0); WBC,Urine 1 /hpf (0-5)
[2017-05-24] MEDS ORDERED: NALOXONE 0.4 MG/ML 1 ML VIAL IV PRN (20:09)
[2017-05-24] MEDS ORDERED: ONDANSETRON 4 MG/2 ML VIAL IVP PRN (20:09)
[2017-05-24] MEDS ORDERED: ACETAMINOPHEN TAB 325 MG TAB PO PRN (20:09)
[2017-05-24] MEDS ORDERED: VANCOMYCIN IV PER PHARMACY 1 EACH MISC MISCELLANE PRN (21:00)
[2017-05-24 22:30] LABS: Glucose,Whole Blood 260 mg/dL (75-99)
[2017-05-24] MEDS: VANCOMYCIN 2,250 MG in SODIUM CHLORIDE 0.9% 500 ML IVPB SCH (22:37)
[2017-05-24] MEDS: INSULIN ASPART 100 UNIT/ML 1 ML 10 ML VIAL SQ SCH (22:37)
[2017-05-24] MEDS: SODIUM CHLORIDE 0.9% 1,000 ML IV SCH (22:37)
[2017-05-24 23:54] VITALS: BMI 49.4
[2017-05-25] MEDS ORDERED: NYSTATIN 100,000UNIT/GM CREAM 30 GM TUBE TOPICAL PRN (01:19)
[2017-05-25] MEDS: HYDROcodone/APAP 10-325MG 1 EACH TAB PO PRN ×3 (01:36→16:32)
[2017-05-25] MEDS: PREGABALIN 100 MG CAP PO SCH ×3 (01:37→21:50)
[2017-05-25] MEDS: ATORVASTATIN 20 MG TAB PO SCH ×2 (02:09→20:09)
[2017-05-25] MEDS: LATANOPROST 0.005% OPHTH DROPS 2.5 ML BTL BOTH EYES SCH ×2 (02:09→20:10)
[2017-05-25] MEDS: CYCLOBENZAPRINE 10 MG TAB PO SCH ×3 (02:09→20:09)
[2017-05-25] MEDS: LEVOTHYROXINE 88 MCG TAB PO SCH (06:18)
[2017-05-25 06:19] LABS: Glucose,Whole Blood 306 mg/dL (75-99)
[2017-05-25] MEDS: SODIUM CHLORIDE 0.9% 1,000 ML IV SCH ×2 (06:19→17:21)
[2017-05-25] MEDS: VANCOMYCIN 2,250 MG in SODIUM CHLORIDE 0.9% 500 ML IVPB SCH ×2 (07:48→20:09)
[2017-05-25] MEDS: INSULIN ASPART 100 UNIT/ML 1 ML 10 ML VIAL SQ SCH ×6 (07:48→21:44)
[2017-05-25] MEDS ORDERED: ALBUTEROL NEBULIZED 2.5 MG/3 ML INHALATION PRN (08:46)
[2017-05-25] MEDS ORDERED: INSULIN DETEMIR 100 UNIT/ML 10 ML VIAL SQ SCH ×4 (09:00→21:00)
[2017-05-25] MEDS ORDERED: LEVOTHYROXINE 88 MCG TAB PO SCH (09:30)
[2017-05-25 09:35] LABS: ALT 37 U/L (9-52); AST 47 U/L (14-36); Albumin 3.2 g/dL (3.5-5.0); Alkaline Phosphatase 142 U/L (38-126); Anion Gap 10 mmol/L; Anisocytosis Slight; Basophils % (A) 0 %; Blood Urea Nitrogen 22 mg/dL (7-17); Calcium 8.5 mg/dL (8.4-10.2); Carbon Dioxide 24 mmol/L (22-30); Chloride 104 mmol/L (98-107); Eosinophils # (A) 0.1 k/uL (0-0.7); Eosinophils % (A) 1 %; Glucose 337 mg/dL (74-99); HGB 11.7 gm/dL (11.4-16.0); Hypochromasia Marked; Lymphocytes # (A) 0.5 k/uL (1.0-4.8); Lymphocytes % (A) 7 %; MCH 27.4 pg (25.0-35.0); MCHC 30.7 g/dL (31.0-37.0); MCV 89.3 fL (80.0-100.0); Mean Platelet Volume 8.2; Monocytes # (A) 0.2 k/uL (0-1.0); Monocytes % (A) 3 %; Neutrophils # (A) 6.8 k/uL (1.3-7.7); Neutrophils % (A) 88 %; Poikilocytosis Slight; Potassium 3.9 mmol/L (3.5-5.1); RBC 4.26 m/uL (3.80-5.40); RDW 16.7 % (11.5-15.5); Sodium 138 mmol/L (137-145); Total Protein 6.5 g/dL (6.3-8.2); WBC 7.7 k/uL (3.8-10.6)
[2017-05-25] MEDS: LORATADINE 10 MG TAB PO SCH (09:53)
[2017-05-25] MEDS: ASPIRIN 81 MG PO SCH (09:53)
[2017-05-25] MEDS: TRIAMTERENE-HCTZ 37.5-25MG 1 EACH TAB PO SCH ×2 (09:53→15:36)
[2017-05-25] MEDS: VENLAFAXINE HCL ER 150 MG CAP PO SCH (09:54)
[2017-05-25] MEDS: metFORMIN 850 MG TAB PO SCH ×3 (09:55→21:54)
[2017-05-25] MEDS ORDERED: PREGABALIN 100 MG CAP PO SCH (10:00)
[2017-05-25] MEDS ORDERED: CYCLOBENZAPRINE 10 MG TAB PO SCH (10:00)
[2017-05-25 10:06] LABS: Glucose,Whole Blood 356 mg/dL (75-99)
[2017-05-25 11:29] LABS: Glucose,Whole Blood 331 mg/dL (75-99)
--- NOTE | 2017-05-25 11:29 | P.HPIM ---
History of Present Illness H&P Date: 05/25/17 Chief Complaint: Fever and vomiting This is a 61-year-old female with a chronic diabetic right heel ulcer with MRSA with chronic osteomyelitis of the right calcaneus noted on bone scan back in March 2017. Patient had been on vancomycin and has now been on daptomycin with wound VAC. She follows Dr. Nielsen at the wound care center. Patient reports that it had been healing well. She also has a history of type 2 diabetes mellitus, morbid obesity, hypothyroidism and obstructive sleep apnea. Patient reports she had been in good health and then yesterday afternoon she gets severe chills and very nauseous and then started having vomiting. Patient reports vomiting about 3 times. The emesis contained food and bile. She was not feeling well and also she told her son to bring her into the emergency room. She was found to have a fever of 101.3 white count normal at 6.2. Blood culture urine culture were ordered. Chest x-ray is negative. Also her PICC line was removed and tip was sent for culture. Infectious these has been consulted. And she was restarted on the IV vancomycin. Patient is currently tolerating a regular diet this morning with no vomiting. She reports her last bowel movement was about 3 days ago. This can be normal for her. She is asking for stool softener. She denies any abdominal pain and she reports passing gas. She denies any chest pain or shortness of breath. Denies any burning with urination. Review of Systems Please refer to HPI otherwise unremarkable Past Medical History Past Medical History: Asthma, Cancer, COPD, Diabetes Mellitus, Eye Disorder, Hyperlipidemia, Liver Disease, Musculoskeletal Disorder, Neurologic Disorder, Osteoarthritis (OA), Sleep Apnea/CPAP/BIPAP, Thyroid Disorder Additional Past Medical History / Comment(s): History of osteomyelitis left #3 toe and left calf: 2004. cervical cancer (in remission.) Wound vac. Cirrhosis of the liver r/t diabetes - sees Dr. Barraza History of Any Multi-Drug Resistant Organisms: MRSA Date of last positivie culture/infection: 03/20/17 MDRO Source:: MRSA HEEL Past Surgical History: Section, Cholecystectomy, Hysterectomy, Orthopedic Surgery, Tonsillectomy, Tubal Ligation Additional Past Surgical History / Comment(s): Cataracts and laser surgery for glaucoma. Multiple I&D to left foot and lower leg. Past Anesthesia/Blood Transfusion Reactions: No Reported Reaction Past Psychological History: Anxiety, Bipolar, Depression Additional Psychological History / Comment(s): Borderline personality Smoking Status: Former smoker Past Alcohol Use History: None Reported Additional Past Alcohol Use History / Comment(s): Patient was a smoker of 2 packs per day for 21 years and quit in 1992. She does use marijuana on occasional basis. She denies any medical marijuana card. She denies any alcohol use or abuse. She is currently living at home and one adult son is living with her. She has been on disability. She is mostly wheelchair bound. Medically disabled. No international travel. No animals in the home. Daughter with her child and child's father live in the basement of the home. Past Drug Use History: Marijuana - Past Family History Father Family Medical History: Congestive Heart Failure (CHF), Coronary Artery Disease (CAD), Myocardial Infarction ([place]) Mother Family Medical History: Coronary Artery Disease (CAD), CVA/TIA, Dementia, Myocardial Infarction ([place]) Medications and Allergies Home Medications Medication Instructions Recorded Confirmed Type Albuterol Inhaler [Ventolin Hfa 1 - 2 puff INHALATION RT-QID PRN 02/18/14 History Inhaler] Cyclobenzaprine [Flexeril] 10 mg PO BID@1000,209902/18/14 05/24/17 History Simvastatin [Zocor] 40 mg PO HS@209902/18/14 05/24/17 History metFORMIN HCL [Glucophage] 850 mg PO BID@1000,209902/18/14 05/24/17 History Cetirizine HCl 10 mg PO DAILY@99910/25/14 05/24/17 History INSULIN LISPRO (humaLOG) [humaLOG] See Protocol SQ TID-W/MEALS 06/18/15 History Albuterol Sulfate 2.5 mg INHALATION RT-QID PRN 12/14/15 05/24/17 History Latanoprost Ophth [Xalatan 0.005%] 1 drop BOTH EYES HS 12/14/15 05/24/17 History Aspirin EC [Ecotrin Low Dose] 81 mg PO DAILY@1000 06/01/16 05/24/17 History Levothyroxine Sodium [Synthroid] 88 mcg PO DAILY@0930 11/19/16 05/24/17 History Pregabalin [Lyrica] 100 mg PO BID@1000,2100 03/26/17 05/24/17 History Venlafaxine HCl [Effexor XR] 150 mg PO DAILY@1000 03/26/17 05/24/17 History HYDROcodone/APAP 10-325MG [[place] 1 tab PO Q8H PRN #42 tab 03/30/17 05/24/17 Rx 10-325] Daptomycin 700mg 700 mg IV HS@1800 05/17/17 05/24/17 History Insulin Glargine,Hum.rec.anlog 80 unit SQ AC-SUPPER 05/17/17 05/24/17 History [Basaglar Kwikpen U-100] Insulin Glargine,Hum.rec.anlog 100 unit SQ AC-BRKFST 05/17/17 05/24/17 History [Basaglar Kwikpen U-100] Nystatin 100,000Unit/gm Cream 1 applic TOPICAL TID PRN 05/17/17 05/24/17 History [Mycostatin Cream] Triamterene-Hctz 37.5-25Mg 1 tab PO BID@1000,1400 05/17/17 05/24/17 History [Maxzide 37.5-25] Allergies Allergy/AdvReac Type Severity Reaction Status Date / Time Penicillins Allergy Anaphylaxis Verified 05/24/17 19:00 Physical Exam Vitals: Vital Signs Temp Pulse Pulse Resp BP BP Pulse Ox 05/25/17 05:23 98.3 F 89 16 138/76 96 05/24/17 23:00 99.4 F 98 18 134/66 94 L 05/24/17 20:23 99.3 F 94 18 160/63 97 05/24/17 19:58 99.4 F 97 18 152/63 95 05/24/17 18:14 101.3 F H 100 22 147/65 97 Intake and Output 05/24/17 05/25/17 05/25/17 22:59 06:59 14:59 Other: Voiding Method Toilet # Voids 2 Weight 152 kg Head normocephalic Neck supple Lungs clear to auscultation bilaterally no wheezing or crackles Heart regular rate and rhythm S1-S2, no rub or gallop Abdomen is soft nontender nondistended positive bowel sounds no hepatosplenomegaly Extremities no edema. Right heel ulcer is healing.Beefy-red. No evidence of any cellulitis or erythema. Serous drainage Neuro alert and orientated to 3 Results CBC & Chem 7: 05/25/17 08:25 05/25/17 08:25 Labs: Abnormal Lab Results - Last 24 Hours (Table) 05/24/17 05/24/17 05/24/17 Range/Units 18:32 18:32 18:32 MCHC (31.0-37.0) g/dL RDW 16.6 H (11.5-15.5) % Plt Count 104 L (150-450) k/uL Lymphocytes # 0.6 L (1.0-4.8) k/uL INR 1.3 H (<1.2) BUN (7-17) mg/dL Glucose 138 H (74-99) mg/dL POC Glucose (mg/dL) (75-99) mg/dL AST (14-36) U/L Alkaline Phosphatase (38-126) U/L Albumin 3.2 L (3.5-5.0) g/dL Urine Protein (Negative) Urine Blood (Negative) Urine Bacteria (None) /hpf Urine Mucus (None) /hpf 05/24/17 05/24/17 05/25/17 Range/Units 19:40 22:29 06:18 MCHC (31.0-37.0) g/dL RDW (11.5-15.5) % Plt Count (150-450) k/uL Lymphocytes # (1.0-4.8) k/uL INR (<1.2) BUN (7-17) mg/dL Glucose (74-99) mg/dL POC Glucose (mg/dL) 260 H 306 H (75-99) mg/dL AST (14-36) U/L Alkaline Phosphatase (38-126) U/L Albumin (3.5-5.0) g/dL Urine Protein Trace H (Negative) Urine Blood Trace H (Negative) Urine Bacteria Rare H (None) /hpf Urine Mucus Rare H (None) /hpf 05/25/17 05/25/17 05/25/17 Range/Units 08:25 08:25 10:03 MCHC 30.7 L (31.0-37.0) g/dL RDW 16.7 H (11.5-15.5) % Plt Count (150-450) k/uL Lymphocytes # (1.0-4.8) k/uL INR (<1.2) BUN 22 H (7-17) mg/dL Glucose 337 H (74-99) mg/dL POC Glucose (mg/dL) 356 H (75-99) mg/dL AST 47 H (14-36) U/L Alkaline Phosphatase 142 H (38-126) U/L Albumin 3.2 L (3.5-5.0) g/dL Urine Protein (Negative) Urine Blood (Negative) Urine Bacteria (None) /hpf Urine Mucus (None) /hpf Microbiology - Last 24 Hours (Table) 05/24/17 18:32 Blood Culture Gram Stain - Preliminary Blood 05/24/17 18:32 Blood Culture - Preliminary Blood 05/24/17 20:22 Catheter Tip Culture - Preliminary Picc Line 05/24/17 19:40 Urine Culture - Preliminary Urine,Voided Thrombosis Risk Factor Assmnt - Choose All That Apply Any of the Below Risk Factors Present?: Yes Each Factor Represents 1 point: Abnormal pulmonary function (COPD), Age 41-60 years, Obesity (BMI >25) Other Risk Factors: No Other congenital or acquired thrombophilia - If yes, enter type in comment: No Thrombosis Risk Factor Assessment Total Risk Factor Score: 3 Thrombosis Risk Factor Assessment Level: Moderate Risk Assessment and Plan Assessment: 1. Fever with nausea and vomiting: Possibly due to a gastroenteritis. Need to rule out any other infectious source. Chest x-ray negative. Urinalysis negative. Urine culture blood culture pending. PICC line removed and tip has been sent for culture. Infectious disease has been consulted. Patient is been restarted on IV vancomycin. Continue Zofran as needed 2. Chronic diabetic foot ulcer of the right heel with MRSA. Followed by infectious disease and the wound care center. Has been receiving IV daptomycin and has wound VAC. At this time wound VAC is discontinued and she is on IV vancomycin. Infectious disease consulted. 3. Chronic thrombocytopenia exact etiology unclear. Platelets are 104 continue to monitor 4. Morbid obesity 5. Diabetes mellitus type 2 with elevated blood sugars on admission. Resume her home insulin. Add sliding scale coverage. 6. Hyperlipidemia continue Lipitor 7. Hypothyroidism resume Synthroid GI prophylaxis Protonix and DVT prophylaxis SCDs Time with Patient: Greater than 30 (Greater than 50% of the total time spent in counseling and coordination of care.I performed an examination of the patient and discussed their management with the physician [employer]. I have reviewed the Physician [employer]er's notes and agree with the documented findings and plan of care)
[2017-05-25 11:39] LABS: Platelet Count 72 k/uL (150-450)
[2017-05-25] MEDS: DOCUSATE 100 MG CAP PO SCH ×2 (11:40→20:10)
[2017-05-25] MEDS: PANTOPRAZOLE 40 MG TABLET PO SCH (11:40)
[2017-05-25 16:55] LABS: Glucose,Whole Blood 154 mg/dL (75-99)
[2017-05-25 20:46] LABS: Glucose,Whole Blood 134 mg/dL (75-99)
[2017-05-25] MEDS ORDERED: LATANOPROST 0.005% OPHTH DROPS 2.5 ML BTL BOTH EYES SCH (21:00)
[2017-05-25] MEDS ORDERED: ATORVASTATIN 20 MG TAB PO SCH (21:00)
[2017-05-25] MEDS: INSULIN DETEMIR 100 UNIT/ML 10 ML VIAL SQ SCH (21:41)
--- NOTE | 2017-05-26 | P.CONS ---
History of Present Illness - Reason for Consult Consult date: 05/25/17 - Chief Complaint Sudden onset fever - History of Present Illness 61-year-old female who has morbid obesity presents the emergency center with a sudden onset of illness. The patient suddenly developed nausea emesis and multiple events associated with generalized malaise and fatigue as well as chills and rigors. The patient felt so profoundly ill and she actually asked to come to Hospital which is quite unusual for her usually she must be followed with to seek medical care. Since coming to Hospital she is definitely feeling better. Does not feel well but her chills and rigors have improved with hydration and starting antibiotic therapy. She understands a wound VAC is on hold while infection is being treated. It is noted upon arrival to the emergency center her PICC line was removed and cultures have been obtained and there are no evidence of gram-negative bacilli being found in her blood. With this notification of gram-negative bacilli , ceftazidime was added based on her prior cultures including Pseudomonas. Review of Systems As noted admission was having high-grade fever chills and rigors HEENT:Denies headache or acute visual change. Denies sinus or mouth discomforts. Denies neck stiffness or pain. Denies significant oral cavity pain. Denies difficulty on swallowing. Lungs: Denies significant shortness of breath, cough, sputum production, or hemoptysis. Cardiovascular: Denies significant shortness of breath, chest pain, chest wall pain, orthopnea, dyspnea on exertion, syncope Gastrointestinal:Denies nausea, vomiting, diarrhea, constipation, hematemesis, melena, hematochezia. No no significant change of bowel habit noticed. Musculoskeletal: denies significant myalgias or arthralgias. No new joint swelling. Denies new back pain. Skin: Worsening ulcers of the right foot as per the HPI Neuro: Denies headache or visual change. Denies any new onset weakness or difficulty with ambulation. Denies falls or seizures. Psychiatric:Denies anxiety or depression. Endocrine: Chronic fatigue, increasing weight gain. Continues to have significant blood glucose control difficulties usually with hyperglycemia occasional mild hypoglycemia occurring Past Medical History Past Medical History: Asthma, Cancer, COPD, Diabetes Mellitus, Eye Disorder, Hyperlipidemia, Liver Disease, Musculoskeletal Disorder, Neurologic Disorder, Osteoarthritis (OA), Sleep Apnea/CPAP/BIPAP, Thyroid Disorder Additional Past Medical History / Comment(s): History of osteomyelitis left #3 toe and left calf: 2004. cervical cancer (in remission.) Wound vac. Cirrhosis of the liver r/t diabetes - sees Dr. Barraza History of Any Multi-Drug Resistant Organisms: MRSA Year Discovered:: 03/20/17 MDRO Source:: MRSA HEEL Past Surgical History: Section, Cholecystectomy, Hysterectomy, Orthopedic Surgery, Tonsillectomy, Tubal Ligation Additional Past Surgical History / Comment(s): Cataracts and laser surgery for glaucoma. Multiple I&D to left foot and lower leg. Past Anesthesia/Blood Transfusion Reactions: No Reported Reaction Past Psychological History: Anxiety, Bipolar, Depression Additional Psychological History / Comment(s): Borderline personality Smoking Status: Former smoker Past Alcohol Use History: None Reported Additional Past Alcohol Use History / Comment(s): Patient was a smoker of 2 packs per day for 21 years and quit in 1992. She does use marijuana on occasional basis. She denies any medical marijuana card. She denies any alcohol use or abuse. She is currently living at home and one adult son is living with her. She has been on disability. She is mostly wheelchair bound. Medically disabled. No international travel. No animals in the home. Daughter with her child and child's father live in the basement of the home. Past Drug Use History: Marijuana - Past Family History Father Family Medical History: Congestive Heart Failure (CHF), Coronary Artery Disease (CAD), Myocardial Infarction (MD) Mother Family Medical History: Coronary Artery Disease (CAD), CVA/TIA, Dementia, Myocardial Infarction (MD) Medications and Allergies Home Medications and Allergies Comment(s): Current Medications Acetaminophen (Tylenol Tab) 650 mg PO Q6HR PRN PRN Reason: Mild Pain or Fever > 100.5 Hydrocodone Bitart/Acetaminophen ([place] 10) 1 each PO Q8H PRN PRN Reason: Moderate to Severe Pain Last Admin: 05/25/17 16:32 Dose: 1 each Albuterol Sulfate (Ventolin Nebulized) 2.5 mg INHALATION RT-QID PRN PRN Reason: Shortness Of Breath Aspirin (Aspirin) 81 mg PO DAILY@1000 JACKLYN Last Admin: 05/25/17 09:53 Dose: 81 mg Atorvastatin Calcium (Lipitor) 20 mg PO HS@2100 JACKLYN Last Admin: 05/25/17 20:09 Dose: 20 mg Cyclobenzaprine HCl (Flexeril) 10 mg PO BID@1000,2100 [facility] Last Admin: 05/25/17 20:09 Dose: 10 mg Docusate Sodium (Colace) 100 mg PO BID [facility] Last Admin: 05/25/17 20:10 Dose: 100 mg Sodium Chloride (Saline 0.9%) 1,000 mls @ 100 mls/hr IV .Q10H [facility] Last Admin: 05/25/17 17:21 Dose: 100 mls/hr Vancomycin HCl 2,250 mg/ (Sodium Chloride) 500 mls @ 167 mls/hr IVPB BID [facility] Last Admin: 05/25/17 20:09 Dose: 167 mls/hr Ceftazidime 2 gm/ Sodium (Chloride) 100 mls @ 100 mls/hr IVPB Q8HR [facility] Last Admin: 05/25/17 17:21 Dose: 100 mls/hr Insulin Aspart (Novolog) 0 unit SQ [facility] PRN Reason: Protocol Last Admin: 05/25/17 21:44 Dose: 1 unit Insulin Aspart (Novolog) 30 unit SQ AC-TID [facility] Last Admin: 05/25/17 17:24 Dose: 30 unit Insulin Detemir (Levemir) 100 unit SQ [facility] Insulin Detemir (Levemir) 80 unit SQ [facility] Last Admin: 05/25/17 21:41 Dose: 80 unit Latanoprost (Xalatan 0.005%) 1 drops BOTH EYES [facility] Last Admin: 05/25/17 20:10 Dose: 1 drops Levothyroxine Sodium (Synthroid) 88 mcg PO DAILY@0630 [facility] Last Admin: 05/25/17 06:18 Dose: 88 mcg Loratadine (Claritin) 10 mg PO DAILY@1000 [facility] Last Admin: 05/25/17 09:53 Dose: 10 mg Metformin HCl (Glucophage) 850 mg PO BID@1000,2100 [facility] Last Admin: 05/25/17 21:54 Dose: Not Given Naloxone HCl (Narcan) 0.2 mg IV Q2M PRN PRN Reason: Opioid Reversal Nystatin (Mycostatin Cream) 1 applic TOPICAL TID PRN PRN Reason: Skin Irritation Ondansetron HCl (Zofran) 4 mg IVP Q8HR PRN PRN Reason: Nausea And Vomiting Pantoprazole Sodium (Protonix) 40 mg PO AC-BRKFST [facility] Last Admin: 05/25/17 11:40 Dose: 40 mg Pregabalin (Lyrica) 100 mg PO BID@1000,2099 [facility] Last Admin: 05/25/17 21:50 Dose: 100 mg Triamterene/HCTZ (Maxzide-25) 1 each PO BID@1000,1400 [facility] Last Admin: 05/25/17 15:36 Dose: 1 each Venlafaxine HCl (Effexor Xr) 150 mg PO DAILY@1000 [facility] Last Admin: 05/25/17 09:54 Dose: 150 mg Home Medications Medication Instructions Recorded Confirmed Type Albuterol Inhaler [Ventolin Hfa 1 - 2 puff INHALATION RT-QID PRN 02/18/14 History Inhaler] Cyclobenzaprine [Flexeril] 10 mg PO BID@999,209902/18/14 05/24/17 History Simvastatin [Zocor] 40 mg PO HS@209902/18/14 05/24/17 History metFORMIN HCL [Glucophage] 850 mg PO BID@999,209902/18/14 05/24/17 History Cetirizine HCl 10 mg PO DAILY@99910/25/14 05/24/17 History INSULIN LISPRO (humaLOG) [humaLOG] See Protocol SQ TID-W/MEALS 06/18/15 History Albuterol Sulfate 2.5 mg INHALATION RT-QID PRN 12/14/15 05/24/17 History Latanoprost Ophth [Xalatan 0.005%] 1 drop BOTH EYES 12/14/15 05/24/17 History Aspirin EC [Ecotrin Low Dose] 81 mg PO DAILY@1000 06/01/16 05/24/17 History Levothyroxine Sodium [Synthroid] 88 mcg PO DAILY@0930 11/19/16 05/24/17 History Pregabalin [Lyrica] 100 mg PO BID@999,209903/26/17 05/24/17 History Venlafaxine HCl [Effexor XR] 150 mg PO DAILY@1000 03/26/17 05/24/17 History HYDROcodone/APAP 10-325MG [[place] 1 tab PO Q8H PRN #42 tab 03/30/17 05/24/17 Rx 10-325] Daptomycin 700mg 700 mg IV HS@1800 05/17/17 05/24/17 History Insulin Glargine,Hum.rec.anlog 80 unit SQ AC-SUPPER 05/17/17 05/24/17 History [Basaglar Kwikpen U-100] Insulin Glargine,Hum.rec.anlog 100 unit SQ AC-BRKFST 05/17/17 05/24/17 History [Basaglar Kwikpen U-100] Nystatin 100,000Unit/gm Cream 1 applic TOPICAL TID PRN 05/17/17 05/24/17 History [Mycostatin Cream] Triamterene-Hctz 37.5-25Mg 1 tab PO BID@1000,1400 05/17/17 05/24/17 History [Maxzide 37.5-25] Allergies Allergy/AdvReac Type Severity Reaction Status Date / Time Penicillins Allergy Anaphylaxis Verified 05/24/17 19:00 Physical Exam Vitals: Vital Signs Temp Pulse Pulse Resp BP Pulse Ox 05/25/17 22:52 97.0 F L 76 16 136/90 98 05/25/17 15:00 99.3 F 84 16 127/59 95 05/25/17 05:23 98.3 F 89 16 138/76 96 Intake and Output 05/25/17 05/25/17 05/26/17 14:59 22:59 06:59 Intake Total 960 Balance 960 Intake: Oral 960 Other: # Voids 3 1 61-year-old woman who suffers from superobesity is modestly comfortable. HEENT: Anicteric conjunctiva are pink and moist nasal mucosa grossly intact without significant lesions, there is no thrush. Neck: The neck is supple without significant lymphadenopathy or thyromegaly. Lungs: Good bilateral air entry without significant crackles or wheezing. There is no significant bronchial sounds. There is no egophony or dullness. Heart: Regular rate and rhythm with an audible S1-S2, no S3 no S4. There is no significant murmur click or rub, PMI was nondisplaced. Abdomen: Positive bowel sounds soft and nontender without palpable masses or organomegaly. There was no guarding or rebound. Extremities: The upper extremities have excellent pulses they are symmetric, no significant petechiae or telangiectasia. No splinter hemorrhages were noted. Left without acute abnormality is. Right foot has evidence of the significant ulceration to the plantar surface of the right heel. The large ulceration is present with the fat layer exposed. Drainage is not foul at this time. Neuro: Awake alert oriented to person place and time. There are no acute new gross focal sensory motor deficits. Has peripheral neuropathy and complains of difficulty with sleep. Results CBC & Chem 7: 05/25/17 08:25 05/25/17 08:25 Labs: Abnormal Lab Results - Last 24 Hours (Table) 05/25/17 05/25/17 05/25/17 Range/Units 06:18 08:25 08:25 MCHC 30.7 L (31.0-37.0) g/dL RDW 16.7 H (11.5-15.5) % Plt Count 72 L (150-450) k/uL Lymphocytes # 0.5 L (1.0-4.8) k/uL BUN 22 H (7-17) mg/dL Glucose 337 H (74-99) mg/dL POC Glucose (mg/dL) 306 H (75-99) mg/dL AST 47 H (14-36) U/L Alkaline Phosphatase 142 H (38-126) U/L Albumin 3.2 L (3.5-5.0) g/dL 05/25/17 05/25/17 05/25/17 Range/Units 10:03 11:20 16:52 MCHC (31.0-37.0) g/dL RDW (11.5-15.5) % Plt Count (150-450) k/uL Lymphocytes # (1.0-4.8) k/uL BUN (7-17) mg/dL Glucose (74-99) mg/dL POC Glucose (mg/dL) 356 H 331 H 154 H (75-99) mg/dL AST (14-36) U/L Alkaline Phosphatase (38-126) U/L Albumin (3.5-5.0) g/dL 05/25/17 Range/Units 20:34 MCHC (31.0-37.0) g/dL RDW (11.5-15.5) % Plt Count (150-450) k/uL Lymphocytes # (1.0-4.8) k/uL BUN (7-17) mg/dL Glucose (74-99) mg/dL POC Glucose (mg/dL) 134 H (75-99) mg/dL AST (14-36) U/L Alkaline Phosphatase (38-126) U/L Albumin (3.5-5.0) g/dL Microbiology - Last 24 Hours (Table) 05/24/17 19:40 Urine Culture - Preliminary Urine,Voided Gram Neg Bacilli 05/24/17 18:32 Blood Culture Gram Stain - Preliminary Blood Blood Culture - Preliminary Gram Neg Bacilli 05/24/17 20:22 Catheter Tip Culture - Preliminary Picc Line 05/24/17 18:32 Blood Culture - Preliminary Blood Microbiology 05/24/17 19:40 Urine,Voided Urine Culture - Preliminary Gram Neg Bacilli 05/24/17 18:32 Blood Blood Culture Gram Stain - Preliminary 05/24/17 18:32 Blood Blood Culture - Preliminary Gram Neg Bacilli 05/24/17 20:22 Picc Line Catheter Tip Culture - Preliminary 05/24/17 18:32 Blood Blood Culture - Preliminary Assessment and Plan (1) Fever Narrative/Plan: 61-year-old woman who has superobesity as well as a diabetic ulceration to her right heel with evidence of bony necrosis receiving negative pressure therapy presented to hospital with high-grade fever chills and rigors. Concern to PICC line infection and This Was Removed. There Are Now Multiple Blood Cultures with Gram-Negative Bacilli and ceftazidime Has Been Added. Patient is starting to feel slightly better with hydration, removal of the PICC line and antibiotic therapy. Identification of the gram-negative organisms in process. Follow-up blood cultures have been requested. Vancomycin is being utilized for the MRSA was isolated from her heel. Silver dressing is being utilized to the heel and once infections or improve negative pressure therapy can be utilized again. Patient stands importance of offloading and elevation. Also needs significant enhanced glucose control to improve her healing process. Current Visit: Yes Status: Acute Code(s): R50.9 - FEVER, UNSPECIFIED SNOMED Code(s): 595273157 (2) Morbid obesity with BMI of 50.0-59.9, adult Current Visit: No Status: Chronic Code(s): E66.01 - MORBID (SEVERE) OBESITY DUE TO EXCESS CALORIES; Z68.43 - BODY MASS INDEX (BMI) 50-59.9 , ADULT SNOMED Code(s): 558130700 (3) Insulin dependent diabetes mellitus Current Visit: No Status: Chronic Code(s): E11.9 - TYPE 2 DIABETES MELLITUS WITHOUT COMPLICATIONS; Z79.4 - LONGTERM (CURRENT) USE OF INSULIN SNOMED Code( s): 12275796
[2017-05-26] MEDS: HYDROcodone/APAP 10-325MG 1 EACH TAB PO PRN ×3 (00:03→20:57)
[2017-05-26] MEDS: SODIUM CHLORIDE 0.9% 1,000 ML IV SCH ×3 (01:53→23:31)
[2017-05-26] MEDS: LEVOTHYROXINE 88 MCG TAB PO SCH (05:39)
[2017-05-26 07:41] LABS: Glucose,Whole Blood 85 mg/dL (75-99)
[2017-05-26] MEDS: INSULIN ASPART 100 UNIT/ML 1 ML 10 ML VIAL SQ SCH ×7 (07:44→20:47)
[2017-05-26 07:53] LABS: Anisocytosis Slight; Basophils % (A) 1 %; Eosinophils # (A) 0.3 k/uL (0-0.7); Eosinophils % (A) 5 %; HCT 37.9 % (34.0-46.0); HGB 11.8 gm/dL (11.4-16.0); Hypochromasia Moderate; Lymphocytes # (A) 1.2 k/uL (1.0-4.8); Lymphocytes % (A) 22 %; MCH 27.4 pg (25.0-35.0); MCHC 31.2 g/dL (31.0-37.0); MCV 88.1 fL (80.0-100.0); Mean Platelet Volume 8.7; Monocytes # (A) 0.5 k/uL (0-1.0); Monocytes % (A) 9 %; Neutrophils # (A) 3.3 k/uL (1.3-7.7); Neutrophils % (A) 60 %; Poikilocytosis Slight; RDW 16.7 % (11.5-15.5); WBC 5.5 k/uL (3.8-10.6)
[2017-05-26 07:55] LABS: Platelet Count 78 k/uL (150-450)
[2017-05-26 08:17] LABS: ALT 33 U/L (9-52); AST 41 U/L (14-36); Albumin 3.1 g/dL (3.5-5.0); Alkaline Phosphatase 113 U/L (38-126); Anion Gap 11 mmol/L; Blood Urea Nitrogen 18 mg/dL (7-17); Calcium 8.5 mg/dL (8.4-10.2); Carbon Dioxide 23 mmol/L (22-30); Chloride 110 mmol/L (98-107); Glucose 83 mg/dL (74-99); Potassium 4.2 mmol/L (3.5-5.1); Sodium 144 mmol/L (137-145); Total Bilirubin 0.5 mg/dL (0.2-1.3); Total Protein 6.4 g/dL (6.3-8.2)
[2017-05-26] MEDS: PREGABALIN 100 MG CAP PO SCH ×2 (08:59→20:57)
[2017-05-26] MEDS: INSULIN DETEMIR 100 UNIT/ML 10 ML VIAL SQ SCH ×2 (08:59→21:24)
[2017-05-26] MEDS: VANCOMYCIN 2,250 MG in SODIUM CHLORIDE 0.9% 500 ML IVPB SCH ×2 (08:59→20:48)
[2017-05-26] MEDS: DOCUSATE 100 MG CAP PO SCH ×2 (09:00→20:49)
[2017-05-26] MEDS: ASPIRIN 81 MG PO SCH (09:00)
[2017-05-26] MEDS: CYCLOBENZAPRINE 10 MG TAB PO SCH ×2 (09:00→20:49)
[2017-05-26] MEDS: LORATADINE 10 MG TAB PO SCH (09:00)
[2017-05-26] MEDS: PANTOPRAZOLE 40 MG TABLET PO SCH (09:00)
[2017-05-26] MEDS: VENLAFAXINE HCL ER 150 MG CAP PO SCH (09:01)
[2017-05-26] MEDS: metFORMIN 850 MG TAB PO SCH ×2 (09:01→20:49)
[2017-05-26] MEDS: TRIAMTERENE-HCTZ 37.5-25MG 1 EACH TAB PO SCH ×2 (09:01→14:30)
[2017-05-26 12:02] LABS: Glucose,Whole Blood 106 mg/dL (75-99)
--- NOTE | 2017-05-26 15:06 | P.PN ---
Subjective Progress Note Date: 05/26/17 This is a 61-year-old female with a chronic diabetic right heel ulcer with MRSA with chronic osteomyelitis of the right calcaneus noted on bone scan back in March 2017. Patient had been on vancomycin and has now been on daptomycin with wound VAC. She follows Dr. Nielsen at the wound care center. Patient reports that it had been healing well. She also has a history of type 2 diabetes mellitus, morbid obesity, hypothyroidism and obstructive sleep apnea. Patient reports she had been in good health and then yesterday afternoon she gets severe chills and very nauseous and then started having vomiting. Patient reports vomiting about 3 times. The emesis contained food and bile. She was not feeling well and also she told her son to bring her into the emergency room. She was found to have a fever of 101.3 white count normal at 6.2. Blood culture urine culture were ordered. Chest x-ray is negative. Also her PICC line was removed and tip was sent for culture. Infectious these has been consulted. And she was restarted on the IV vancomycin. Patient is currently tolerating a regular diet this morning with no vomiting. She reports her last bowel movement was about 3 days ago. This can be normal for her. She is asking for stool softener. She denies any abdominal pain and she reports passing gas. She denies any chest pain or shortness of breath. Denies any burning with urination. On 05/26/2017 patient is alert and oriented 3 in no apparent distress she is complaining of fatigue and complaining of constipation otherwise no complaints at this time Objective - Vital Signs Vital signs: Vital Signs Temp 97.1 F L 05/26/17 07:00 Pulse 76 05/26/17 07:00 Resp 20 05/26/17 07:00 BP 124/49 05/26/17 07:00 Pulse Ox 96 05/26/17 07:00 Intake & Output 05/25/17 05/26/17 05/26/17 18:59 06:59 18:59 Intake Total 960 Balance 960 Intake: Oral 960 Other: # Voids 3 2 2 - Exam Head normocephalic and atraumatic Neck supple no JVD no goiter Lungs clear to auscultation bilaterally no wheezing or crackles Heart regular rate and rhythm S1-S2, no rub or gallop Abdomen is soft nontender nondistended positive bowel sounds no hepatosplenomegaly Extremities no edema. Right heel ulcer is healing.Beefy-red. No evidence of any cellulitis or erythema. Serous drainage Neuro alert and orientated to 3 - Labs CBC & Chem 7: 05/26/17 07:24 05/26/17 07:24 Labs: Abnormal Lab Results - Last 24 Hours (Table) 05/25/17 05/25/17 05/26/17 Range/Units 16:52 20:34 07:24 RDW (11.5-15.5) % Plt Count (150-450) k/uL Chloride 110 H (98-107) mmol/L BUN 18 H (7-17) mg/dL POC Glucose (mg/dL) 154 H 134 H (75-99) mg/dL AST 41 H (14-36) U/L Albumin 3.1 L (3.5-5.0) g/dL 05/26/17 05/26/17 Range/Units 07:24 12:00 RDW 16.7 H (11.5-15.5) % Plt Count 78 L (150-450) k/uL Chloride (98-107) mmol/L BUN (7-17) mg/dL POC Glucose (mg/dL) 106 H (75-99) mg/dL AST (14-36) U/L Albumin (3.5-5.0) g/dL Microbiology - Last 24 Hours (Table) 05/24/17 19:40 Urine Culture - Preliminary Urine,Voided Gram Neg Bacilli 05/24/17 18:32 Blood Culture Gram Stain - Preliminary Blood Blood Culture - Preliminary Gram Neg Bacilli 05/24/17 20:22 Catheter Tip Culture - Preliminary Picc Line Assessment and Plan Plan: 1. Fever with nausea and vomiting: Possibly due to a gastroenteritis. Need to rule out any other infectious source. Chest x-ray negative. Urinalysis negative. Urine culture blood culture pending. PICC line removed and tip has been sent for culture. Infectious disease has been consulted. Patient is been restarted on IV vancomycin. Continue Zofran as needed 2. Chronic diabetic foot ulcer of the right heel with MRSA. Followed by infectious disease and the wound care center. Has been receiving IV daptomycin and has wound VAC. At this time wound VAC is discontinued and she is on IV vancomycin. Infectious disease consulted. 3. Chronic thrombocytopenia exact etiology unclear. Platelets are 104 continue to monitor 4. Morbid obesity 5. Diabetes mellitus type 2 with elevated blood sugars on admission. Resume her home insulin. Add sliding scale coverage. 6. Hyperlipidemia continue Lipitor 7. Hypothyroidism resume Synthroid 8. GI prophylaxis Protonix and DVT prophylaxis SCDs
[2017-05-26 16:30] LABS: Glucose,Whole Blood 55 mg/dL (75-99)
[2017-05-26 16:52] LABS: Glucose,Whole Blood 72 mg/dL (75-99)
[2017-05-26 17:21] LABS: Glucose,Whole Blood 118 mg/dL (75-99)
[2017-05-26] MEDS: ATORVASTATIN 20 MG TAB PO SCH (20:49)
[2017-05-26 20:58] LABS: Glucose,Whole Blood 110 mg/dL (75-99)
[2017-05-26] MEDS: LATANOPROST 0.005% OPHTH DROPS 2.5 ML BTL BOTH EYES SCH (21:24)
[2017-05-27] MEDS: LEVOTHYROXINE 88 MCG TAB PO SCH (06:19)
[2017-05-27 07:17] LABS: Glucose,Whole Blood 96 mg/dL (75-99)
[2017-05-27] MEDS: INSULIN ASPART 100 UNIT/ML 1 ML 10 ML VIAL SQ SCH ×7 (07:42→22:00)
[2017-05-27] MEDS ORDERED: VANCOMYCIN TROUGH DUE 1 EACH MISC MISCELLANE ONE (08:00)
--- NOTE | 2017-05-27 08:12 | P.PN ---
Subjective Progress Note Date: 05/26/17 Principal diagnosis: Sepsis 61-year-old female who has morbid obesity presents the emergency center with a sudden onset of illness. The patient suddenly developed nausea emesis and multiple events associated with generalized malaise and fatigue as well as chills and rigors. The patient felt so profoundly ill and she actually asked to come to Hospital which is quite unusual for her usually she must be followed with to seek medical care. Since coming to Hospital she is definitely feeling better. Does not feel well but her chills and rigors have improved with hydration and starting antibiotic therapy. She understands a wound VAC is on hold while infection is being treated. It is noted upon arrival to the emergency center her PICC line was removed and cultures have been obtained and there are no evidence of gram-negative bacilli being found in her blood. With this notification of gram-negative bacilli , ceftazidime was added based on her prior cultures including Pseudomonas. 05/26/2017 the patient is feeling slightly better. She has less fever and chill. Does not believe that her phone is any worse. Relates that her left arm feels well since removal of the PICC line. Denies any other interim new complaints. Objective - Vital Signs Vital signs: Vital Signs Temp 97.3 F L 05/27/17 06:41 Pulse 72 05/27/17 06:41 Resp 16 05/27/17 06:41 BP 124/61 05/27/17 06:41 Pulse Ox 99 05/27/17 06:41 Intake & Output 05/26/17 05/27/17 05/27/17 18:59 06:59 18:59 Other: # Voids 2 1 - Exam 61-year-old woman who suffers from superobesity is modestly comfortable. HEENT: Anicteric conjunctiva are pink and moist nasal mucosa grossly intact without significant lesions, there is no thrush. Neck: The neck is supple without significant lymphadenopathy or thyromegaly. Lungs: Good bilateral air entry without significant crackles or wheezing. There is no significant bronchial sounds. There is no egophony or dullness. Heart: Regular rate and rhythm with an audible S1-S2, no S3 no S4. There is no significant murmur click or rub, PMI was nondisplaced. Abdomen: Positive bowel sounds soft and nontender without palpable masses or organomegaly. There was no guarding or rebound. Extremities: The upper extremities have excellent pulses they are symmetric, no significant petechiae or telangiectasia. No splinter hemorrhages were noted. Left without acute abnormality is. Right foot has evidence of the significant ulceration to the plantar surface of the right heel. The large ulceration is present with the fat layer exposed. Drainage is not foul at this time. The left upper extremity has no erythema crepitance or fluctuance with a PICC line was present there is no expressible purulence and there is no axillary lymphadenopathy Neuro: Awake alert oriented to person place and time. There are no acute new gross focal sensory motor deficits. Has peripheral neuropathy and complains of difficulty with sleep. - Labs CBC & Chem 7: 05/26/17 07:24 05/26/17 07:24 Labs: Abnormal Lab Results - Last 24 Hours (Table) 05/26/17 05/26/17 05/26/17 Range/Units 07:24 12:00 16:27 Chloride 110 H (98-107) mmol/L BUN 18 H (7-17) mg/dL POC Glucose (mg/dL) 106 H 55 L (75-99) mg/dL AST 41 H (14-36) U/L Albumin 3.1 L (3.5-5.0) g/dL 05/26/17 05/26/17 05/26/17 Range/Units 16:48 17:20 20:45 Chloride (98-107) mmol/L BUN (7-17) mg/dL POC Glucose (mg/dL) 72 L 118 H 110 H (75-99) mg/dL AST (14-36) U/L Albumin (3.5-5.0) g/dL Microbiology - Last 24 Hours (Table) 05/24/17 19:40 Urine Culture - Final Urine,Voided Klebsiella oxytoca Escherichia coli 05/24/17 18:32 Blood Culture Gram Stain - Final Blood Blood Culture - Final Klebsiella oxytoca 05/24/17 20:22 Catheter Tip Culture - Final Picc Line Laboratory Results WBC 5.5 k/uL (3.8-10.6) 05/26/17 07:24 RBC 4.30 m/uL (3.80-5.40) 05/26/17 07:24 Hgb 11.8 gm/dL (11.4-16.0) 05/26/17 07:24 Hct 37.9 % (34.0-46.0) 05/26/17 07:24 MCV 88.1 fL (80.0-100.0) 05/26/17 07:24 MCH 27.4 pg (25.0-35.0) 05/26/17 07:24 MCHC 31.2 g/dL (31.0-37.0) 05/26/17 07:24 RDW 16.7 % (11.5-15.5) H 05/26/17 07:24 Plt Count 78 k/uL (150-450) L 05/26/17 07:24 Neutrophils % 60 % 05/26/17 07:24 Lymphocytes % 22 % 05/26/17 07:24 Monocytes % 9 % 05/26/17 07:24 Eosinophils % 5 % 05/26/17 07:24 Basophils % 1 % 05/26/17 07:24 Neutrophils # 3.3 k/uL (1.3-7.7) 05/26/17 07:24 Lymphocytes # 1.2 k/uL (1.0-4.8) 05/26/17 07:24 Monocytes # 0.5 k/uL (0-1.0) 05/26/17 07:24 Eosinophils # 0.3 k/uL (0-0.7) 05/26/17 07:24 Basophils # 0.0 k/uL (0-0.2) 05/26/17 07:24 Manual Slide Review Performed 05/25/17 08:25 Hypochromasia Moderate 05/26/17 07:24 Poikilocytosis Slight 05/26/17 07:24 Anisocytosis Slight 05/26/17 07:24 PT 12.0 sec (9.0-12.0) 05/24/17 18:32 INR 1.3 (<1.2) H 05/24/17 18:32 APTT 24.7 sec (22.0-30.0) 05/24/17 18:32 Sodium 144 mmol/L (137-145) 05/26/17 07:24 Potassium 4.2 mmol/L (3.5-5.1) 05/26/17 07:24 Chloride 110 mmol/L (98-107) H 05/26/17 07:24 Carbon Dioxide 23 mmol/L (22-30) 05/26/17 07:24 Anion Gap 11 mmol/L 05/26/17 07:24 BUN 18 mg/dL (7-17) H 05/26/17 07:24 Creatinine 0.87 mg/dL (0.52-1.04) 05/26/17 07:24 Est GFR (MDRD) Af Amer >60 (>60 ml/min/1.73 sqM) 05/26/17 07:24 Est GFR (MDRD) Non-Af >60 (>60 ml/min/1.73 sqM) 05/26/17 07:24 Glucose 83 mg/dL (74-99) 05/26/17 07:24 POC Glucose (mg/dL) 96 mg/dL (75-99) 05/27/17 07:16 POC Glu Manager Clinical Pharmacy ID Erica Paris 05/27/17 07:16 Plasma Lactic Acid Marquise 2.0 mmol/L (0.7-2.0) 05/24/17 18:32 Calcium 8.5 mg/dL (8.4-10.2) 05/26/17 07:24 Total Bilirubin 0.5 mg/dL (0.2-1.3) 05/26/17 07:24 AST 41 U/L (14-36) H 05/26/17 07:24 ALT 33 U/L (9-52) 05/26/17 07:24 Alkaline Phosphatase 113 U/L (38-126) 05/26/17 07:24 Total Protein 6.4 g/dL (6.3-8.2) 05/26/17 07:24 Albumin 3.1 g/dL (3.5-5.0) L 05/26/17 07:24 Urine Color Yellow 05/24/17 19:40 Urine Appearance Clear (Clear) 05/24/17 19:40 Urine pH 5.5 (5.0-8.0) 05/24/17 19:40 Ur Specific [place] 1.011 (1.001-1.035) 05/24/17 19:40 Urine Protein Trace (Negative) H 05/24/17 19:40 Urine Glucose (UA) Negative (Negative) 05/24/17 19:40 Urine Ketones Negative (Negative) 05/24/17 19:40 Urine Blood Trace (Negative) H 05/24/17 19:40 Urine Nitrite Negative (Negative) 05/24/17 19:40 Urine Bilirubin Negative (Negative) 05/24/17 19:40 Urine Urobilinogen <2.0 mg/dL (<2.0) 05/24/17 19:40 Ur Leukocyte Esterase Negative (Negative) 05/24/17 19:40 Urine RBC 4 /hpf (0-5) 05/24/17 19:40 Urine WBC 1 /hpf (0-5) 05/24/17 19:40 Ur Squamous Epith Cells 2 /hpf (0-4) 05/24/17 19:40 Urine Bacteria Rare /hpf (None) H 05/24/17 19:40 Urine Mucus Rare /hpf (None) H 05/24/17 19:40 Influenza Type A RNA Not Detected (Not Detectd) 05/24/17 18:32 Influenza Type B (PCR) Not Detected (Not Detectd) 05/24/17 18:32 Assessment and Plan (1) Fever Narrative/Plan: 61-year-old woman who has superobesity as well as a diabetic ulceration to her right heel with evidence of bony necrosis receiving negative pressure therapy presented to hospital with high-grade fever chills and rigors. Concern to PICC line infection and This Was Removed. There Are Now Multiple Blood Cultures with Gram-Negative Bacilli and ceftazidime Has Been Added. Patient is starting to feel slightly better with hydration, removal of the PICC line and antibiotic therapy. Identification of the gram-negative organisms in process. Follow-up blood cultures have been requested. Vancomycin is being utilized for the MRSA was isolated from her heel. Silver dressing is being utilized to the heel and once infections or improve negative pressure therapy can be utilized again. Patient stands importance of offloading and elevation. Also needs significant enhanced glucose control to improve her healing process. 05/26/2017 patient is feeling better with PICC line removed and current intravenous antibiotic therapy. Cultures are awaited to determine what our options will be at the time of discharge. She was nearing the end of the treatment course for her osteomyelitis to her heel. Hopefully will be a quinolone susceptible agent and not require further IV antibiotic therapy given this recent bout of catheter sepsis. Patient did have some hypoglycemia. While she is in hospital she has significant restriction of her dietary intake and necessitates tailoring of her insulin requirements Current Visit: Yes Status: Acute Code(s): R50.9 - FEVER, UNSPECIFIED SNOMED Code(s): 399655860 (2) Morbid obesity with BMI of 50.0-59.9, adult Current Visit: No Status: Chronic Code(s): E66.01 - MORBID (SEVERE) OBESITY DUE TO EXCESS CALORIES; Z68.43 - BODY MASS INDEX (BMI) 50-59.9 , ADULT SNOMED Code(s): 737435823 (3) Insulin dependent diabetes mellitus Current Visit: No Status: Chronic Code(s): E11.9 - TYPE 2 DIABETES MELLITUS WITHOUT COMPLICATIONS; Z79.4 - SYSTEM SOFTWARE DEVELOPER (CURRENT) USE OF INSULIN SNOMED Code( s): 95298627
[2017-05-27 08:32] LABS: Anisocytosis Slight; Basophils % (A) 1 %; Eosinophils # (A) 0.4 k/uL (0-0.7); Eosinophils % (A) 7 %; HCT 36.4 % (34.0-46.0); HGB 10.9 gm/dL (11.4-16.0); Hypochromasia Marked; Lymphocytes # (A) 0.8 k/uL (1.0-4.8); Lymphocytes % (A) 17 %; MCH 26.8 pg (25.0-35.0); MCHC 29.9 g/dL (31.0-37.0); MCV 89.6 fL (80.0-100.0); Mean Platelet Volume 8.4; Monocytes # (A) 0.4 k/uL (0-1.0); Monocytes % (A) 7 %; Neutrophils # (A) 3.1 k/uL (1.3-7.7); Neutrophils % (A) 65 %; Poikilocytosis Slight; RBC 4.06 m/uL (3.80-5.40); RDW 16.6 % (11.5-15.5); WBC 4.9 k/uL (3.8-10.6)
[2017-05-27 08:40] LABS: ALT 32 U/L (9-52); AST 34 U/L (14-36); Albumin 3.1 g/dL (3.5-5.0); Alkaline Phosphatase 104 U/L (38-126); Anion Gap 11 mmol/L; Blood Urea Nitrogen 16 mg/dL (7-17); Calcium 8.6 mg/dL (8.4-10.2); Carbon Dioxide 25 mmol/L (22-30); Chloride 108 mmol/L (98-107); Glucose 92 mg/dL (74-99); Sodium 144 mmol/L (137-145); Total Bilirubin 0.5 mg/dL (0.2-1.3); Total Protein 6.4 g/dL (6.3-8.2)
[2017-05-27 08:53] LABS: Platelet Count 71 k/uL (150-450)
[2017-05-27] MEDS: PANTOPRAZOLE 40 MG TABLET PO SCH (09:24)
[2017-05-27] MEDS: INSULIN DETEMIR 100 UNIT/ML 10 ML VIAL SQ SCH ×2 (09:24→22:11)
[2017-05-27] MEDS: VANCOMYCIN 2,250 MG in SODIUM CHLORIDE 0.9% 500 ML IVPB SCH (09:24)
--- NOTE | 2017-05-27 09:24 | P.PN ---
Subjective Progress Note Date: 05/27/17 This is a 61-year-old female with a chronic diabetic right heel ulcer with MRSA with chronic osteomyelitis of the right calcaneus noted on bone scan back in March 2017. Patient had been on vancomycin and has now been on daptomycin with wound VAC. She follows Dr. Nielsen at the wound care center. Patient reports that it had been healing well. She also has a history of type 2 diabetes mellitus, morbid obesity, hypothyroidism and obstructive sleep apnea. Patient reports she had been in good health and then yesterday afternoon she gets severe chills and very nauseous and then started having vomiting. Patient reports vomiting about 3 times. The emesis contained food and bile. She was not feeling well and also she told her son to bring her into the emergency room. She was found to have a fever of 101.3 white count normal at 6.2. Blood culture urine culture were ordered. Chest x-ray is negative. Also her PICC line was removed and tip was sent for culture. Infectious these has been consulted. And she was restarted on the IV vancomycin. Patient is currently tolerating a regular diet this morning with no vomiting. She reports her last bowel movement was about 3 days ago. This can be normal for her. She is asking for stool softener. She denies any abdominal pain and she reports passing gas. She denies any chest pain or shortness of breath. Denies any burning with urination. On 05/26/2017 patient is alert and oriented 3 in no apparent distress she is complaining of fatigue and complaining of constipation otherwise no complaints at this time On 05/27/2017 patient is alert and oriented 3 complaining of fatigue and constipation otherwise no complaints urine culture was positive for E. coli and Klebsiella oxytoca blood culture is positive for Klebsiella oxytoca patient currently is maintained on ceftazidime and is continued on vancomycin for her foot ulcer with cellulitis awaiting further culture results was sensitivity awaiting Dr. Nielsen recommendation for discharge possible discharge on Sunday or Sunday Objective - Vital Signs Vital signs: Vital Signs Temp 97.3 F L 05/27/17 06:41 Pulse 72 05/27/17 06:41 Resp 16 05/27/17 06:41 BP 124/61 05/27/17 06:41 Pulse Ox 99 05/27/17 06:41 Intake & Output 05/26/17 05/27/17 05/27/17 18:59 06:59 18:59 Other: # Voids 2 1 - Exam Head normocephalic and atraumatic Neck supple no JVD no goiter Lungs clear to auscultation bilaterally no wheezing or crackles Heart regular rate and rhythm S1-S2, no rub or gallop Abdomen is soft nontender nondistended positive bowel sounds no hepatosplenomegaly Extremities no edema. Right heel ulcer is healing.Beefy-red. No evidence of any cellulitis or erythema. Serous drainage Neuro alert and orientated to 3 - Labs CBC & Chem 7: 05/27/17 07:43 05/27/17 07:43 Labs: Abnormal Lab Results - Last 24 Hours (Table) 05/26/17 05/26/17 05/26/17 Range/Units 12:00 16:27 16:48 Hgb (11.4-16.0) gm/dL MCHC (31.0-37.0) g/dL RDW (11.5-15.5) % Plt Count (150-450) k/uL Lymphocytes # (1.0-4.8) k/uL Chloride (98-107) mmol/L POC Glucose (mg/dL) 106 H 55 L 72 L (75-99) mg/dL Albumin (3.5-5.0) g/dL 05/26/17 05/26/17 05/27/17 Range/Units 17:20 20:45 07:43 Hgb (11.4-16.0) gm/dL MCHC (31.0-37.0) g/dL RDW (11.5-15.5) % Plt Count (150-450) k/uL Lymphocytes # (1.0-4.8) k/uL Chloride 108 H (98-107) mmol/L POC Glucose (mg/dL) 118 H 110 H (75-99) mg/dL Albumin 3.1 L (3.5-5.0) g/dL 05/27/17 Range/Units 07:43 Hgb 10.9 L (11.4-16.0) gm/dL MCHC 29.9 L (31.0-37.0) g/dL RDW 16.6 H (11.5-15.5) % Plt Count 71 L (150-450) k/uL Lymphocytes # 0.8 L (1.0-4.8) k/uL Chloride (98-107) mmol/L POC Glucose (mg/dL) (75-99) mg/dL Albumin (3.5-5.0) g/dL Microbiology - Last 24 Hours (Table) 05/24/17 19:40 Urine Culture - Final Urine,Voided Klebsiella oxytoca Escherichia coli 05/24/17 18:32 Blood Culture Gram Stain - Final Blood Blood Culture - Final Klebsiella oxytoca 05/24/17 20:22 Catheter Tip Culture - Final Picc Line Assessment and Plan Plan: 1. Fever with nausea and vomiting: Possibly due to a gastroenteritis. Need to rule out any other infectious source. Chest x-ray negative. Urinalysis negative. Urine culture blood culture pending. PICC line removed and tip has been sent for culture. Infectious disease has been consulted. Patient is been restarted on IV vancomycin, patient is followed by Dr. Nielsen ceftazidime was added blood culture positive for Klebsiella oxytoca Continue Zofran as needed 2. Chronic diabetic foot ulcer of the right heel with MRSA. Followed by infectious disease and the wound care center. Has been receiving IV daptomycin and has wound VAC. At this time wound VAC is discontinued and she is on IV vancomycin. Infectious disease consulted. 3. Chronic thrombocytopenia exact etiology unclear. Platelets are 104 continue to monitor 4. Morbid obesity 5. Diabetes mellitus type 2 with elevated blood sugars on admission. Resume her home insulin. Add sliding scale coverage. 6. Hyperlipidemia continue Lipitor 7. Hypothyroidism resume Synthroid 8. GI prophylaxis Protonix and DVT prophylaxis SCDs
[2017-05-27] MEDS: DOCUSATE 100 MG CAP PO SCH ×2 (09:25→21:59)
[2017-05-27] MEDS: SODIUM CHLORIDE 0.9% 1,000 ML IV SCH ×2 (09:25→17:37)
[2017-05-27] MEDS: ASPIRIN 81 MG PO SCH (09:26)
[2017-05-27] MEDS: LORATADINE 10 MG TAB PO SCH (09:26)
[2017-05-27] MEDS: CYCLOBENZAPRINE 10 MG TAB PO SCH ×2 (09:26→21:59)
[2017-05-27] MEDS: metFORMIN 850 MG TAB PO SCH ×3 (09:27→22:16)
[2017-05-27] MEDS: VENLAFAXINE HCL ER 150 MG CAP PO SCH (09:27)
[2017-05-27] MEDS: TRIAMTERENE-HCTZ 37.5-25MG 1 EACH TAB PO SCH ×2 (09:27→14:54)
[2017-05-27] MEDS: PREGABALIN 100 MG CAP PO SCH ×2 (09:34→22:14)
[2017-05-27 12:15] LABS: Glucose,Whole Blood 139 mg/dL (75-99)
[2017-05-27 15:31] LABS: Glucose,Whole Blood 40 mg/dL (75-99)
[2017-05-27 16:04] LABS: Glucose,Whole Blood 79 mg/dL (75-99)
[2017-05-27 17:07] LABS: Glucose,Whole Blood 77 mg/dL (75-99)
--- NOTE | 2017-05-27 17:33 | P.PN ---
Subjective Progress Note Date: 05/27/17 Principal diagnosis: Sepsis 61-year-old female who has morbid obesity presents the emergency center with a sudden onset of illness. The patient suddenly developed nausea emesis and multiple events associated with generalized malaise and fatigue as well as chills and rigors. The patient felt so profoundly ill and she actually asked to come to Hospital which is quite unusual for her usually she must be followed with to seek medical care. Since coming to Hospital she is definitely feeling better. Does not feel well but her chills and rigors have improved with hydration and starting antibiotic therapy. She understands a wound VAC is on hold while infection is being treated. It is noted upon arrival to the emergency center her PICC line was removed and cultures have been obtained and there are no evidence of gram-negative bacilli being found in her blood. With this notification of gram-negative bacilli , ceftazidime was added based on her prior cultures including Pseudomonas. 05/26/2017 the patient is feeling slightly better. She has less fever and chill. Does not believe that her phone is any worse. Relates that her left arm feels well since removal of the PICC line. Denies any other interim new complaints. 05/27/2017 continues to have further improvement. Is a 90 difficulties such as fever chills or rigors. Does not having urinary symptoms that are new always has frequency. Denies flank pain. Objective - Vital Signs Vital signs: Vital Signs Temp 97.1 F L 05/27/17 15:00 Pulse 77 05/27/17 15:00 Resp 20 05/27/17 15:00 BP 137/73 05/27/17 15:00 Pulse Ox 96 05/27/17 15:00 Intake & Output 05/26/17 05/27/17 05/27/17 18:59 06:59 18:59 Other: # Voids 2 1 2 - Exam 61-year-old woman who suffers from superobesity is modestly comfortable. HEENT: Anicteric conjunctiva are pink and moist nasal mucosa grossly intact without significant lesions, there is no thrush. Neck: The neck is supple without significant lymphadenopathy or thyromegaly. Lungs: Good bilateral air entry without significant crackles or wheezing. There is no significant bronchial sounds. There is no egophony or dullness. Heart: Regular rate and rhythm with an audible S1-S2, no S3 no S4. There is no significant murmur click or rub, PMI was nondisplaced. Abdomen: Positive bowel sounds soft and nontender without palpable masses or organomegaly. There was no guarding or rebound. Extremities: The upper extremities have excellent pulses they are symmetric, no significant petechiae or telangiectasia. No splinter hemorrhages were noted. Left without acute abnormality is. Right foot has evidence of the significant ulceration to the plantar surface of the right heel. The large ulceration is present with the fat layer exposed. Drainage is not foul at this time. The left upper extremity has no erythema crepitance or fluctuance with a PICC line was present there is no expressible purulence and there is no axillary lymphadenopathy Neuro: Awake alert oriented to person place and time. There are no acute new gross focal sensory motor deficits. Has peripheral neuropathy and complains of difficulty with sleep. - Labs CBC & Chem 7: 05/27/17 07:43 05/27/17 07:43 Labs: Abnormal Lab Results - Last 24 Hours (Table) 05/26/17 05/27/17 05/27/17 Range/Units 20:45 07:43 07:43 Hgb 10.9 L (11.4-16.0) gm/dL MCHC 29.9 L (31.0-37.0) g/dL RDW 16.6 H (11.5-15.5) % Plt Count 71 L (150-450) k/uL Lymphocytes # 0.8 L (1.0-4.8) k/uL Chloride 108 H (98-107) mmol/L POC Glucose (mg/dL) 110 H (75-99) mg/dL Albumin 3.1 L (3.5-5.0) g/dL 05/27/17 05/27/17 Range/Units 12:13 15:28 Hgb (11.4-16.0) gm/dL MCHC (31.0-37.0) g/dL RDW (11.5-15.5) % Plt Count (150-450) k/uL Lymphocytes # (1.0-4.8) k/uL Chloride (98-107) mmol/L POC Glucose (mg/dL) 139 H 40 L (75-99) mg/dL Albumin (3.5-5.0) g/dL Microbiology - Last 24 Hours (Table) 05/24/17 18:32 Blood Culture - Final Blood 05/24/17 19:40 Urine Culture - Final Urine,Voided Klebsiella oxytoca Escherichia coli 05/24/17 18:32 Blood Culture Gram Stain - Final Blood Blood Culture - Final Klebsiella oxytoca 05/24/17 20:22 Catheter Tip Culture - Final Picc Line Laboratory Results WBC 4.9 k/uL (3.8-10.6) 05/27/17 07:43 RBC 4.06 m/uL (3.80-5.40) 05/27/17 07:43 Hgb 10.9 gm/dL (11.4-16.0) L 05/27/17 07:43 Hct 36.4 % (34.0-46.0) 05/27/17 07:43 MCV 89.6 fL (80.0-100.0) 05/27/17 07:43 MCH 26.8 pg (25.0-35.0) 05/27/17 07:43 MCHC 29.9 g/dL (31.0-37.0) L 05/27/17 07:43 RDW 16.6 % (11.5-15.5) H 05/27/17 07:43 Plt Count 71 k/uL (150-450) L 05/27/17 07:43 Neutrophils % 65 % 05/27/17 07:43 Lymphocytes % 17 % 05/27/17 07:43 Monocytes % 7 % 05/27/17 07:43 Eosinophils % 7 % 05/27/17 07:43 Basophils % 1 % 05/27/17 07:43 Neutrophils # 3.1 k/uL (1.3-7.7) 05/27/17 07:43 Lymphocytes # 0.8 k/uL (1.0-4.8) L 05/27/17 07:43 Monocytes # 0.4 k/uL (0-1.0) 05/27/17 07:43 Eosinophils # 0.4 k/uL (0-0.7) 05/27/17 07:43 Basophils # 0.0 k/uL (0-0.2) 05/27/17 07:43 Manual Slide Review Performed 05/25/17 08:25 Hypochromasia Marked 05/27/17 07:43 Poikilocytosis Slight 05/27/17 07:43 Anisocytosis Slight 05/27/17 07:43 PT 12.0 sec (9.0-12.0) 05/24/17 18:32 INR 1.3 (<1.2) H 05/24/17 18:32 APTT 24.7 sec (22.0-30.0) 05/24/17 18:32 Sodium 144 mmol/L (137-145) 05/27/17 07:43 Potassium 4.0 mmol/L (3.5-5.1) 05/27/17 07:43 Chloride 108 mmol/L (98-107) H 05/27/17 07:43 Carbon Dioxide 25 mmol/L (22-30) 05/27/17 07:43 Anion Gap 11 mmol/L 05/27/17 07:43 BUN 16 mg/dL (7-17) 05/27/17 07:43 Creatinine 0.81 mg/dL (0.52-1.04) 05/27/17 07:43 Est GFR (MDRD) Af Amer >60 (>60 ml/min/1.73 sqM) 05/27/17 07:43 Est GFR (MDRD) Non-Af >60 (>60 ml/min/1.73 sqM) 05/27/17 07:43 Glucose 92 mg/dL (74-99) 05/27/17 07:43 POC Glucose (mg/dL) 77 mg/dL (75-99) 05/27/17 17:05 POC Glu [employer] ID Erica [place] 05/27/17 17:05 Plasma Lactic Acid Marquise 2.0 mmol/L (0.7-2.0) 05/24/17 18:32 Calcium 8.6 mg/dL (8.4-10.2) 05/27/17 07:43 Total Bilirubin 0.5 mg/dL (0.2-1.3) 05/27/17 07:43 AST 34 U/L (14-36) 05/27/17 07:43 ALT 32 U/L (9-52) 05/27/17 07:43 Alkaline Phosphatase 104 U/L (38-126) 05/27/17 07:43 Total Protein 6.4 g/dL (6.3-8.2) 05/27/17 07:43 Albumin 3.1 g/dL (3.5-5.0) L 05/27/17 07:43 Urine Color Yellow 05/24/17 19:40 Urine Appearance Clear (Clear) 05/24/17 19:40 Urine pH 5.5 (5.0-8.0) 05/24/17 19:40 Ur Specific [place] 1.011 (1.001-1.035) 05/24/17 19:40 Urine Protein Trace (Negative) H 05/24/17 19:40 Urine Glucose (UA) Negative (Negative) 05/24/17 19:40 Urine Ketones Negative (Negative) 05/24/17 19:40 Urine Blood Trace (Negative) H 05/24/17 19:40 Urine Nitrite Negative (Negative) 05/24/17 19:40 Urine Bilirubin Negative (Negative) 05/24/17 19:40 Urine Urobilinogen <2.0 mg/dL (<2.0) 05/24/17 19:40 Ur Leukocyte Esterase Negative (Negative) 05/24/17 19:40 Urine RBC 4 /hpf (0-5) 05/24/17 19:40 Urine WBC 1 /hpf (0-5) 05/24/17 19:40 Ur Squamous Epith Cells 2 /hpf (0-4) 05/24/17 19:40 Urine Bacteria Rare /hpf (None) H 05/24/17 19:40 Urine Mucus Rare /hpf (None) H 05/24/17 19:40 Vancomycin Trough 26.2 ug/mL 05/27/17 07:43 Influenza Type A RNA Not Detected (Not Detectd) 05/24/17 18:32 Influenza Type B (PCR) Not Detected (Not Detectd) 05/24/17 18:32 Microbiology 05/24/17 18:32 Blood Blood Culture - Final 05/24/17 19:40 Urine,Voided Urine Culture - Final Klebsiella oxytoca Escherichia coli 05/24/17 18:32 Blood Blood Culture Gram Stain - Final 05/24/17 18:32 Blood Blood Culture - Final Klebsiella oxytoca 05/24/17 20:22 Picc Line Catheter Tip Culture - Final Assessment and Plan (1) Fever Narrative/Plan: 61-year-old woman who has superobesity as well as a diabetic ulceration to her right heel with evidence of bony necrosis receiving negative pressure therapy presented to hospital with high-grade fever chills and rigors. Concern to PICC line infection and This Was Removed. There Are Now Multiple Blood Cultures with Gram-Negative Bacilli and ceftazidime Has Been Added. Patient is starting to feel slightly better with hydration, removal of the PICC line and antibiotic therapy. Identification of the gram-negative organisms in process. Follow-up blood cultures have been requested. Vancomycin is being utilized for the MRSA was isolated from her heel. Silver dressing is being utilized to the heel and once infections or improve negative pressure therapy can be utilized again. Patient stands importance of offloading and elevation. Also needs significant enhanced glucose control to improve her healing process. 05/26/2017 patient is feeling better with PICC line removed and current intravenous antibiotic therapy. Cultures are awaited to determine what our options will be at the time of discharge. She was nearing the end of the treatment course for her osteomyelitis to her heel. Hopefully will be a quinolone susceptible agent and not require further IV antibiotic therapy given this recent bout of catheter sepsis. Patient did have some hypoglycemia. While she is in hospital she has significant restriction of her dietary intake and necessitates tailoring of her insulin requirements 05/27/2017 patient continues to have improvement of status. Remains afebrile with no other acute difficulties. She has completed her course of intravenous antibiotic therapy for the osteomyelitis of her heel. The patient is now noted to have evidence of gram-negative both in her urine and her blood. It now appears that rather than PICC line infection she had sepsis with urinary system after admission. She will be treated with oral ciprofloxacin 500 mg every 12 hours for 2 weeks to complete the treatment of her gram-negative sepsis from urinary system. She will not need another PICC line to be placed. Continue with local wound care. I will reinstitute negative pressure therapy treatment once she gets to home with home care. Follow up in the wound center after discharge. Current Visit: Yes Status: Acute Code(s): R50.9 - FEVER, UNSPECIFIED SNOMED Code(s): 062960891 (2) Morbid obesity with BMI of 50.0-59.9, adult Current Visit: No Status: Chronic Code(s): E66.01 - MORBID (SEVERE) OBESITY DUE TO EXCESS CALORIES; Z68.43 - BODY MASS INDEX (BMI) 50-59.9 , ADULT SNOMED Code(s): 806236321 (3) Insulin dependent diabetes mellitus Current Visit: No Status: Chronic Code(s): E11.9 - TYPE 2 DIABETES MELLITUS WITHOUT COMPLICATIONS; Z79.4 - PRISON (CURRENT) USE OF INSULIN SNOMED Code( s): 85871914
[2017-05-27 20:56] LABS: Glucose,Whole Blood 194 mg/dL (75-99)
[2017-05-27] MEDS: ATORVASTATIN 20 MG TAB PO SCH (21:59)
[2017-05-27] MEDS: HYDROcodone/APAP 10-325MG 1 EACH TAB PO PRN (22:08)
[2017-05-27] MEDS: LATANOPROST 0.005% OPHTH DROPS 2.5 ML BTL BOTH EYES SCH (22:11)
[2017-05-28 00:37] VITALS: RESP 16
[2017-05-28 02:12] LABS: Glucose,Whole Blood 145 mg/dL (75-99)
[2017-05-28] MEDS: SODIUM CHLORIDE 0.9% 1,000 ML IV SCH ×2 (04:31→12:36)
[2017-05-28] MEDS: LEVOTHYROXINE 88 MCG TAB PO SCH (06:53)
[2017-05-28] MEDS: VANCOMYCIN 2,250 MG in SODIUM CHLORIDE 0.9% 500 ML IVPB SCH ×2 (06:53→22:22)
[2017-05-28 07:08] LABS: Glucose,Whole Blood 136 mg/dL (75-99)
[2017-05-28] MEDS: PANTOPRAZOLE 40 MG TABLET PO SCH (08:26)
[2017-05-28] MEDS: DOCUSATE 100 MG CAP PO SCH ×2 (08:26→22:21)
[2017-05-28] MEDS: INSULIN DETEMIR 100 UNIT/ML 10 ML VIAL SQ SCH ×2 (08:26→22:22)
[2017-05-28] MEDS: INSULIN ASPART 100 UNIT/ML 1 ML 10 ML VIAL SQ SCH ×6 (08:27→18:49)
[2017-05-28] MEDS: LORATADINE 10 MG TAB PO SCH (08:28)
[2017-05-28] MEDS: CYCLOBENZAPRINE 10 MG TAB PO SCH ×2 (08:28→22:20)
[2017-05-28] MEDS: TRIAMTERENE-HCTZ 37.5-25MG 1 EACH TAB PO SCH ×2 (08:28→12:35)
[2017-05-28] MEDS: metFORMIN 850 MG TAB PO SCH ×2 (08:28→22:19)
[2017-05-28] MEDS: ASPIRIN 81 MG PO SCH (08:29)
[2017-05-28] MEDS: VENLAFAXINE HCL ER 150 MG CAP PO SCH (08:29)
[2017-05-28] MEDS: HYDROcodone/APAP 10-325MG 1 EACH TAB PO PRN ×2 (08:35→22:19)
[2017-05-28] MEDS: PREGABALIN 100 MG CAP PO SCH ×2 (08:36→22:20)
[2017-05-28 08:48] LABS: Anisocytosis Slight; Basophils % (A) 1 %; Eosinophils # (A) 0.3 k/uL (0-0.7); Eosinophils % (A) 7 %; HCT 34.7 % (34.0-46.0); HGB 10.9 gm/dL (11.4-16.0); Hypochromasia Moderate; Lymphocytes # (A) 1.1 k/uL (1.0-4.8); Lymphocytes % (A) 23 %; MCH 27.2 pg (25.0-35.0); MCHC 31.3 g/dL (31.0-37.0); MCV 86.8 fL (80.0-100.0); Mean Platelet Volume 8.4; Monocytes # (A) 0.3 k/uL (0-1.0); Monocytes % (A) 5 %; Neutrophils # (A) 2.9 k/uL (1.3-7.7); Neutrophils % (A) 61 %; Poikilocytosis Slight; RDW 16.3 % (11.5-15.5); WBC 4.7 k/uL (3.8-10.6)
[2017-05-28 08:56] LABS: Platelet Count 88 k/uL (150-450)
[2017-05-28 09:12] LABS: ALT 30 U/L (9-52); AST 29 U/L (14-36); Albumin 3.1 g/dL (3.5-5.0); Alkaline Phosphatase 110 U/L (38-126); Anion Gap 8 mmol/L; Blood Urea Nitrogen 14 mg/dL (7-17); Calcium 8.8 mg/dL (8.4-10.2); Carbon Dioxide 29 mmol/L (22-30); Chloride 107 mmol/L (98-107); Glucose 155 mg/dL (74-99); Potassium 4.4 mmol/L (3.5-5.1); Sodium 144 mmol/L (137-145); Total Bilirubin 0.5 mg/dL (0.2-1.3); Total Protein 6.4 g/dL (6.3-8.2)
--- NOTE | 2017-05-28 11:09 | P.PN ---
Subjective Progress Note Date: 05/28/17 This is a 61-year-old female with a chronic diabetic right heel ulcer with MRSA with chronic osteomyelitis of the right calcaneus noted on bone scan back in March 2017. Patient had been on vancomycin and has now been on daptomycin with wound VAC. She follows Dr. Nielsen at the wound care center. Patient reports that it had been healing well. She also has a history of type 2 diabetes mellitus, morbid obesity, hypothyroidism and obstructive sleep apnea. Patient reports she had been in good health and then yesterday afternoon she gets severe chills and very nauseous and then started having vomiting. Patient reports vomiting about 3 times. The emesis contained food and bile. She was not feeling well and also she told her son to bring her into the emergency room. She was found to have a fever of 101.3 white count normal at 6.2. Blood culture urine culture were ordered. Chest x-ray is negative. Also her PICC line was removed and tip was sent for culture. Infectious these has been consulted. And she was restarted on the IV vancomycin. Patient is currently tolerating a regular diet this morning with no vomiting. She reports her last bowel movement was about 3 days ago. This can be normal for her. She is asking for stool softener. She denies any abdominal pain and she reports passing gas. She denies any chest pain or shortness of breath. Denies any burning with urination. 05/28/2017 patient does not feel ready for discharge. She is complaining of constipation. She will be given a dose of lactulose. She denies any chest pain or shortness of breath. Denies any nausea or vomiting. Denies any abdominal pain. Denies any urinary symptoms. Patient states since she's been here she's had some difficulty with her speech and memory. Patient is talking appropriately there is no evidence of slurred speech. She is answering questions appropriately. Patient was able to ask for blood work to be drawn was supposed to be done in the office in the next couple a days. Nursing staff has not witnessed any speech difficulties. Patient asking to be discharged tomorrow instead of today Objective - Vital Signs Vital signs: Vital Signs Temp 96.8 F L 05/28/17 05:17 Pulse 77 05/28/17 05:17 Resp 16 05/28/17 05:17 BP 160/84 05/28/17 05:17 Pulse Ox 97 02/26/18 05:17 Intake & Output 05/27/17 05/28/17 05/28/17 18:59 06:59 18:59 Other: # Voids 2 2 - Labs CBC & Chem 7: 05/28/17 08:13 05/28/17 08:13 Labs: Abnormal Lab Results - Last 24 Hours (Table) 05/27/17 05/27/17 05/27/17 Range/Units 12:13 15:28 20:53 Hgb (11.4-16.0) gm/dL RDW (11.5-15.5) % Plt Count (150-450) k/uL Glucose (74-99) mg/dL POC Glucose (mg/dL) 139 H 40 L 194 H (75-99) mg/dL Albumin (3.5-5.0) g/dL 05/28/17 05/28/17 05/28/17 Range/Units 02:10 07:04 08:13 Hgb (11.4-16.0) gm/dL RDW (11.5-15.5) % Plt Count (150-450) k/uL Glucose 155 H (74-99) mg/dL POC Glucose (mg/dL) 145 H 136 H (75-99) mg/dL Albumin 3.1 L (3.5-5.0) g/dL 05/28/17 Range/Units 08:13 Hgb 10.9 L (11.4-16.0) gm/dL RDW 16.3 H (11.5-15.5) % Plt Count 88 L (150-450) k/uL Glucose (74-99) mg/dL POC Glucose (mg/dL) (75-99) mg/dL Albumin (3.5-5.0) g/dL Microbiology - Last 24 Hours (Table) 05/24/17 18:32 Blood Culture - Final Blood Assessment and Plan Assessment: 1. UTI with bacteremia. Urine culture growing Klebsiella oxytoca and E. coli. Blood culture growing Klebsiella oxytoca. Seen by infectious disease. They are recommending cipro 500mg BID for 2 weeks. 2. Chronic diabetic foot ulcer of the right heel with MRSA. Followed by infectious disease and the wound care center. Seen by Dr. Nielsen. She has completed her IV antibiotics 3. Chronic thrombocytopenia exact etiology unclear. Platelets are 104 continue to monitor 4. Morbid obesity 5. Diabetes mellitus type 2 with elevated blood sugars on admission. Resume her home insulin. Add sliding scale coverage. 6. Hyperlipidemia continue Lipitor 7. Hypothyroidism resume Synthroid 8. Constipation we'll give lactulose 10. Anemia: Check iron studies. May be related to antibiotics or acute illness. Denies any blood in her stools Patient asking to be discharged tomorrow GI prophylaxis Protonix and DVT prophylaxis SCDs
[2017-05-28] MEDS ORDERED: LACTULOSE 20 GM/30 ML CUP PO ONE (11:15)
[2017-05-28 11:28] LABS: Glucose,Whole Blood 162 mg/dL (75-99)
[2017-05-28 15:58] LABS: Glucose,Whole Blood 50 mg/dL (75-99)
[2017-05-28 16:17] LABS: Glucose,Whole Blood 70 mg/dL (75-99)
[2017-05-28 16:26] LABS: Iron Saturation 16.01 (12.00-45.00)
[2017-05-28 16:58] LABS: Glucose,Whole Blood 86 mg/dL (75-99)
[2017-05-28 17:10] LABS: Hemoglobin A1C 8.1 % (4.0-6.0)
[2017-05-28 20:48] LABS: Glucose,Whole Blood 225 mg/dL (75-99)
[2017-05-28] MEDS: ATORVASTATIN 20 MG TAB PO SCH (22:19)
[2017-05-28] MEDS: LATANOPROST 0.005% OPHTH DROPS 2.5 ML BTL BOTH EYES SCH (22:25)
--- NOTE | 2017-05-28 23:30 | P.PN ---
Subjective Progress Note Date: 05/28/17 Principal diagnosis: Sepsis 61-year-old female who has morbid obesity presents the emergency center with a sudden onset of illness. The patient suddenly developed nausea emesis and multiple events associated with generalized malaise and fatigue as well as chills and rigors. The patient felt so profoundly ill and she actually asked to come to Hospital which is quite unusual for her usually she must be followed with to seek medical care. Since coming to Hospital she is definitely feeling better. Does not feel well but her chills and rigors have improved with hydration and starting antibiotic therapy. She understands a wound VAC is on hold while infection is being treated. It is noted upon arrival to the emergency center her PICC line was removed and cultures have been obtained and there are no evidence of gram-negative bacilli being found in her blood. With this notification of gram-negative bacilli , ceftazidime was added based on her prior cultures including Pseudomonas. 05/26/2017 the patient is feeling slightly better. She has less fever and chill. Does not believe that her phone is any worse. Relates that her left arm feels well since removal of the PICC line. Denies any other interim new complaints. 05/27/2017 continues to have further improvement. Is without difficulties such as fever chills or rigors. Does not having urinary symptoms that are new always has frequency. Denies flank pain. 05/28/2017 reveals the patient continues to have further improvements, denies fevers chills rigors or sweats. Is having some intermittent relative hypoglycemia due to her significant calorie restriction while she is in hospital. Other than that she is feeling relatively well. Appear she's being ready for discharge home tomorrow. Objective - Vital Signs Vital signs: Vital Signs Temp 96.2 F L 05/28/17 14:52 Pulse 74 05/28/17 14:52 Resp 16 05/28/17 16:00 BP 133/72 05/28/17 14:52 Pulse Ox 94 L 05/28/17 14:52 Intake & Output 05/28/17 05/28/17 05/29/17 06:59 18:59 06:59 Intake Total 480 Balance 480 Intake: Oral 480 Other: # Voids 2 2 1 - Exam 61-year-old woman who suffers from superobesity is modestly comfortable. HEENT: Anicteric conjunctiva are pink and moist nasal mucosa grossly intact without significant lesions, there is no thrush. Neck: The neck is supple without significant lymphadenopathy or thyromegaly. Lungs: Good bilateral air entry without significant crackles or wheezing. There is no significant bronchial sounds. There is no egophony or dullness. Heart: Regular rate and rhythm with an audible S1-S2, no S3 no S4. There is no significant murmur click or rub, PMI was nondisplaced. Abdomen: Positive bowel sounds soft and nontender without palpable masses or organomegaly. There was no guarding or rebound. Extremities: The upper extremities have excellent pulses they are symmetric, no significant petechiae or telangiectasia. No splinter hemorrhages were noted. Left without acute abnormality is. Right foot has evidence of the significant ulceration to the plantar surface of the right heel. The large ulceration is present with the fat layer exposed. Drainage is not foul at this time. The left upper extremity has no erythema crepitance or fluctuance with a PICC line was present there is no expressible purulence and there is no axillary lymphadenopathy Neuro: Awake alert oriented to person place and time. There are no acute new gross focal sensory motor deficits. Has peripheral neuropathy and complains of difficulty with sleep. - Labs CBC & Chem 7: 05/28/17 08:13 05/28/17 08:13 Labs: Abnormal Lab Results - Last 24 Hours (Table) 05/28/17 05/28/17 05/28/17 Range/Units 02:10 07:04 08:13 Hgb (11.4-16.0) gm/dL RDW (11.5-15.5) % Plt Count (150-450) k/uL Glucose 155 H (74-99) mg/dL POC Glucose (mg/dL) 145 H 136 H (75-99) mg/dL Albumin 3.1 L (3.5-5.0) g/dL 05/28/17 05/28/17 05/28/17 Range/Units 08:13 11:26 15:36 Hgb 10.9 L (11.4-16.0) gm/dL RDW 16.3 H (11.5-15.5) % Plt Count 88 L (150-450) k/uL Glucose (74-99) mg/dL POC Glucose (mg/dL) 162 H 50 L (75-99) mg/dL Albumin (3.5-5.0) g/dL 05/28/17 05/28/17 Range/Units 16:01 20:46 Hgb (11.4-16.0) gm/dL RDW (11.5-15.5) % Plt Count (150-450) k/uL Glucose (74-99) mg/dL POC Glucose (mg/dL) 70 L 225 H (75-99) mg/dL Albumin (3.5-5.0) g/dL Laboratory Results WBC 4.7 k/uL (3.8-10.6) 05/28/17 08:13 RBC 4.00 m/uL (3.80-5.40) 05/28/17 08:13 Hgb 10.9 gm/dL (11.4-16.0) L 05/28/17 08:13 Hct 34.7 % (34.0-46.0) 05/28/17 08:13 MCV 86.8 fL (80.0-100.0) 05/28/17 08:13 MCH 27.2 pg (25.0-35.0) 05/28/17 08:13 MCHC 31.3 g/dL (31.0-37.0) 05/28/17 08:13 RDW 16.3 % (11.5-15.5) H 05/28/17 08:13 Plt Count 88 k/uL (150-450) L 05/28/17 08:13 Neutrophils % 61 % 05/28/17 08:13 Lymphocytes % 23 % 05/28/17 08:13 Monocytes % 5 % 05/28/17 08:13 Eosinophils % 7 % 05/28/17 08:13 Basophils % 1 % 05/28/17 08:13 Neutrophils # 2.9 k/uL (1.3-7.7) 05/28/17 08:13 Lymphocytes # 1.1 k/uL (1.0-4.8) 05/28/17 08:13 Monocytes # 0.3 k/uL (0-1.0) 05/28/17 08:13 Eosinophils # 0.3 k/uL (0-0.7) 05/28/17 08:13 Basophils # 0.0 k/uL (0-0.2) 05/28/17 08:13 Manual Slide Review Performed 05/25/17 08:25 Hypochromasia Moderate 05/28/17 08:13 Poikilocytosis Slight 05/28/17 08:13 Anisocytosis Slight 05/28/17 08:13 PT 12.0 sec (9.0-12.0) 05/24/17 18:32 INR 1.3 (<1.2) H 05/24/17 18:32 APTT 24.7 sec (22.0-30.0) 05/24/17 18:32 Sodium 144 mmol/L (137-145) 05/28/17 08:13 Potassium 4.4 mmol/L (3.5-5.1) 05/28/17 08:13 Chloride 107 mmol/L (98-107) 05/28/17 08:13 Carbon Dioxide 29 mmol/L (22-30) 05/28/17 08:13 Anion Gap 8 mmol/L 05/28/17 08:13 BUN 14 mg/dL (7-17) 05/28/17 08:13 Creatinine 0.77 mg/dL (0.52-1.04) 05/28/17 08:13 Est GFR (MDRD) Af Amer >60 (>60 ml/min/1.73 sqM) 05/28/17 08:13 Est GFR (MDRD) Non-Af >60 (>60 ml/min/1.73 sqM) 05/28/17 08:13 Glucose 155 mg/dL (74-99) H 05/28/17 08:13 POC Glucose (mg/dL) 225 mg/dL (75-99) H 05/28/17 20:46 POC Glu Traffic Survey Technician Guerita Zelaya 05/28/17 20:46 Plasma Lactic Acid Marquise 2.0 mmol/L (0.7-2.0) 05/24/17 18:32 Calcium 8.8 mg/dL (8.4-10.2) 05/28/17 08:13 Total Bilirubin 0.5 mg/dL (0.2-1.3) 05/28/17 08:13 AST 29 U/L (14-36) 05/28/17 08:13 ALT 30 U/L (9-52) 05/28/17 08:13 Alkaline Phosphatase 110 U/L (38-126) 05/28/17 08:13 Total Protein 6.4 g/dL (6.3-8.2) 05/28/17 08:13 Albumin 3.1 g/dL (3.5-5.0) L 05/28/17 08:13 Urine Color Yellow 05/24/17 19:40 Urine Appearance Clear (Clear) 05/24/17 19:40 Urine pH 5.5 (5.0-8.0) 05/24/17 19:40 Ur Specific [place] 1.011 (1.001-1.035) 05/24/17 19:40 Urine Protein Trace (Negative) H 05/24/17 19:40 Urine Glucose (UA) Negative (Negative) 05/24/17 19:40 Urine Ketones Negative (Negative) 05/24/17 19:40 Urine Blood Trace (Negative) H 05/24/17 19:40 Urine Nitrite Negative (Negative) 05/24/17 19:40 Urine Bilirubin Negative (Negative) 05/24/17 19:40 Urine Urobilinogen <2.0 mg/dL (<2.0) 05/24/17 19:40 Ur Leukocyte Esterase Negative (Negative) 05/24/17 19:40 Urine RBC 4 /hpf (0-5) 05/24/17 19:40 Urine WBC 1 /hpf (0-5) 05/24/17 19:40 Ur Squamous Epith Cells 2 /hpf (0-4) 05/24/17 19:40 Urine Bacteria Rare /hpf (None) H 05/24/17 19:40 Urine Mucus Rare /hpf (None) H 05/24/17 19:40 Vancomycin Trough 26.2 ug/mL 05/27/17 07:43 Influenza Type A RNA Not Detected (Not Detectd) 05/24/17 18:32 Influenza Type B (PCR) Not Detected (Not Detectd) 05/24/17 18:32 Microbiology 05/24/17 18:32 Blood Blood Culture - Final 05/24/17 19:40 Urine,Voided Urine Culture - Final Klebsiella oxytoca Escherichia coli 05/24/17 18:32 Blood Blood Culture Gram Stain - Final 05/24/17 18:32 Blood Blood Culture - Final Klebsiella oxytoca 05/24/17 20:22 Picc Line Catheter Tip Culture - Final Assessment and Plan (1) Fever Narrative/Plan: 61-year-old woman who has superobesity as well as a diabetic ulceration to her right heel with evidence of bony necrosis receiving negative pressure therapy presented to hospital with high-grade fever chills and rigors. Concern to PICC line infection and This Was Removed. There Are Now Multiple Blood Cultures with Gram-Negative Bacilli and ceftazidime Has Been Added. Patient is starting to feel slightly better with hydration, removal of the PICC line and antibiotic therapy. Identification of the gram-negative organisms in process. Follow-up blood cultures have been requested. Vancomycin is being utilized for the MRSA was isolated from her heel. Silver dressing is being utilized to the heel and once infections or improve negative pressure therapy can be utilized again. Patient stands importance of offloading and elevation. Also needs significant enhanced glucose control to improve her healing process. 05/26/2017 patient is feeling better with PICC line removed and current intravenous antibiotic therapy. Cultures are awaited to determine what our options will be at the time of discharge. She was nearing the end of the treatment course for her osteomyelitis to her heel. Hopefully will be a quinolone susceptible agent and not require further IV antibiotic therapy given this recent bout of catheter sepsis. Patient did have some hypoglycemia. While she is in hospital she has significant restriction of her dietary intake and necessitates tailoring of her insulin requirements 05/27/2017 patient continues to have improvement of status. Remains afebrile with no other acute difficulties. She has completed her course of intravenous antibiotic therapy for the osteomyelitis of her heel. The patient is now noted to have evidence of gram-negative both in her urine and her blood. It now appears that rather than PICC line infection she had sepsis with urinary system after admission. She will be treated with oral ciprofloxacin 500 mg every 12 hours for 2 weeks to complete the treatment of her gram-negative sepsis from urinary system. She will not need another PICC line to be placed. Continue with local wound care. I will reinstitute negative pressure therapy treatment once she gets to home with home care. Follow up in the wound center after discharge. 05/28/2017 as the patient is having ongoing improvement other than some intermittent hypoglycemia from significant calorie restriction she is doing better. He has noted will not need a replacement of her PICC line at discharge. She has completed the course for the osteomyelitis for her heel. We 'll need to follow-up in the wound healing center and restart the negative pressure therapy when she gets to home. For antibiotic therapy ciprofloxacin 500 mg every 12 hours for 2 weeks has been ordered to complete the treatment of her gram-negative sepsis from her urinary system. Current Visit: Yes Status: Acute Code(s): R50.9 - FEVER, UNSPECIFIED SNOMED Code(s): 370229376 (2) Morbid obesity with BMI of 50.0-59.9, adult Current Visit: No Status: Chronic Code(s): E66.01 - MORBID (SEVERE) OBESITY DUE TO EXCESS CALORIES; Z68.43 - BODY MASS INDEX (BMI) 50-59.9 , ADULT SNOMED Code(s): 741457918 (3) Insulin dependent diabetes mellitus Current Visit: No Status: Chronic Code(s): E11.9 - TYPE 2 DIABETES MELLITUS WITHOUT COMPLICATIONS; Z79.4 - TYPE COPYIST (CURRENT) USE OF INSULIN SNOMED Code( s): 62972954
[2017-05-29 01:38] LABS: Glucose,Whole Blood 172 mg/dL (75-99)
[2017-05-29] MEDS: INSULIN ASPART 100 UNIT/ML 1 ML 10 ML VIAL SQ SCH ×5 (02:01→13:06)
[2017-05-29] MEDS: SODIUM CHLORIDE 0.9% 1,000 ML IV SCH ×2 (02:01→08:35)
[2017-05-29] MEDS: LEVOTHYROXINE 88 MCG TAB PO SCH (06:23)
[2017-05-29 06:25] VITALS: BP 118/52; PULSE 73; TEMP 97.7
[2017-05-29 07:33] LABS: Glucose,Whole Blood 120 mg/dL (75-99)
[2017-05-29] MEDS: ASPIRIN 81 MG PO SCH (08:34)
[2017-05-29] MEDS: VENLAFAXINE HCL ER 150 MG CAP PO SCH (08:34)
[2017-05-29] MEDS: CYCLOBENZAPRINE 10 MG TAB PO SCH (08:34)
[2017-05-29] MEDS: LORATADINE 10 MG TAB PO SCH (08:34)
[2017-05-29] MEDS: PANTOPRAZOLE 40 MG TABLET PO SCH (08:34)
[2017-05-29] MEDS: TRIAMTERENE-HCTZ 37.5-25MG 1 EACH TAB PO SCH ×2 (08:34→14:06)
[2017-05-29] MEDS: DOCUSATE 100 MG CAP PO SCH (08:35)
[2017-05-29] MEDS: PREGABALIN 100 MG CAP PO SCH (08:35)
[2017-05-29] MEDS: metFORMIN 850 MG TAB PO SCH (08:35)
[2017-05-29 08:37] LABS: Anisocytosis Slight; Basophils % (A) 1 %; Eosinophils # (A) 0.3 k/uL (0-0.7); Eosinophils % (A) 7 %; HCT 35.5 % (34.0-46.0); Hypochromasia Moderate; Lymphocytes # (A) 1.1 k/uL (1.0-4.8); Lymphocytes % (A) 23 %; MCH 26.7 pg (25.0-35.0); MCHC 31.1 g/dL (31.0-37.0); MCV 85.8 fL (80.0-100.0); Mean Platelet Volume 7.8; Monocytes # (A) 0.3 k/uL (0-1.0); Monocytes % (A) 7 %; Neutrophils # (A) 2.8 k/uL (1.3-7.7); Neutrophils % (A) 61 %; Poikilocytosis Slight; RBC 4.14 m/uL (3.80-5.40); RDW 16.1 % (11.5-15.5); WBC 4.6 k/uL (3.8-10.6)
[2017-05-29] MEDS: HYDROcodone/APAP 10-325MG 1 EACH TAB PO PRN (08:40)
[2017-05-29] MEDS: INSULIN DETEMIR 100 UNIT/ML 10 ML VIAL SQ SCH (08:40)
[2017-05-29 08:42] LABS: Platelet Count 86 k/uL (150-450)
[2017-05-29 08:45] LABS: ALT 31 U/L (9-52); AST 26 U/L (14-36); Albumin 3.2 g/dL (3.5-5.0); Alkaline Phosphatase 114 U/L (38-126); Anion Gap 9 mmol/L; Blood Urea Nitrogen 15 mg/dL (7-17); Calcium 8.8 mg/dL (8.4-10.2); Carbon Dioxide 32 mmol/L (22-30); Chloride 105 mmol/L (98-107); Cholesterol 117 mg/dL (<200); Glucose 136 mg/dL (74-99); HDL Cholesterol 37 mg/dL (40-60); LDL Cholesterol,Calculated 64 mg/dL (0-99); Potassium 4.4 mmol/L (3.5-5.1); Sodium 146 mmol/L (137-145); Total Bilirubin 0.4 mg/dL (0.2-1.3); Total Protein 6.5 g/dL (6.3-8.2); Triglycerides 82 mg/dL (<150)
--- NOTE | 2017-05-29 11:12 | P.DS ---
Providers Date of admission: 05/24/17 20:09 Expected date of discharge: 05/29/17 Attending physician: iLlibeth Seymour Consults: 05/25/17 10:38 Consult Physician Routine Consulting Provider: Chris Nielsen Consult Reason/Comments: fever Do you want consulting provider notified?: Yes Primary care physician: Lilibeth Seymour [facility] Course: Discharge diagnosis 1. UTI with bacteremia. Urine culture growing Klebsiella oxytoca and E. coli. Blood culture growing Klebsiella oxytoca. Seen by infectious disease. They are recommending cipro 500mg BID for 2 weeks. 2. Chronic diabetic foot ulcer of the right heel with MRSA. Followed by infectious disease and the wound care center. Seen by Dr. Nielsen. She has completed her IV antibiotics treatment 3. Chronic thrombocytopenia exact etiology unclear. Platelets are 86 continue to monitor 4. Morbid obesity 5. Diabetes mellitus type 2 with elevated blood sugars on admission. Resume her home insulin. Add sliding scale coverage. 6. Hyperlipidemia continue Lipitor 7. Hypothyroidism resume Synthroid 8. Constipation improved with lactulose 9. Anemia: May be related to antibiotics or acute illness. Denies any blood in her stools. Hemoglobin at discharge 11. Iron studies negative 10. Cold sores: Prescription for Valtrex given Hospital course This is a 61-year-old female with a chronic diabetic right heel ulcer with MRSA with chronic osteomyelitis of the right calcaneus noted on bone scan back in March 2017. Patient had been on vancomycin and has now been on daptomycin with wound VAC. She follows Dr. Nielsen at the wound care center. Patient reports that it had been healing well. She also has a history of type 2 diabetes mellitus, morbid obesity, hypothyroidism and obstructive sleep apnea. Patient reports she had been in good health and then yesterday afternoon she gets severe chills and very nauseous and then started having vomiting. Patient reports vomiting about 3 times. The emesis contained food and bile. She was not feeling well and also she told her son to bring her into the emergency room. She was found to have a fever of 101.3 white count normal at 6.2. Blood culture urine culture were ordered. Chest x-ray is negative. Also her PICC line was removed and tip was sent for culture. Infectious these has been consulted. And she was restarted on the IV vancomycin. Patient is currently tolerating a regular diet this morning with no vomiting. She reports her last bowel movement was about 3 days ago. This can be normal for her. She is asking for stool softener. She denies any abdominal pain and she reports passing gas. She denies any chest pain or shortness of breath. Denies any burning with urination. Patient was found to have evidence of a urinary tract infection with bacteremia. Bacteremia was due to her urinary tract infection. Culture results as stated above. Seen evaluated by infectious disease. The recommending Cipro for 2 weeks at the time of discharge. Patient has been afebrile. White count has normalized. She also has a known chronic left foot ulcer with MRSA. She completed her IV antibiotic treatment here. In no further need of IV antibiotics. PICC line removed and catheter tip was sent for culture which was negative. Patient's symptoms have improved she is stable for discharge and his been cleared by infectious disease. She'll follow-up with infectious disease at the wound care center. She also follow up with Dr. Seymour in 1 week at the office. She is to have a repeat CBC drawn in 1 week in office. Also note that her 3 month blood work check. Hemoglobin A1c was 8.1. Triglycerides 82 cholesterol 117 LDL 64 and HDL 37 Patient is medically stable for discharge I performed an examination of the patient and discussed their management with the physician [employer]. I have reviewed the Physician [employer]'s notes and agree with the documented findings and plan of care Patient Condition at Discharge: Stable Plan - Discharge Summary Discharge Rx Participant: No New Discharge Prescriptions: New Ciprofloxacin HCl [Cipro] 500 mg PO Q12HR #28 tablet Docusate [Colace] 100 mg PO BID #60 cap Continue Albuterol Inhaler [Ventolin Hfa Inhaler] 1 - 2 puff INHALATION RT-QID PRN PRN Reason: Shortness Of Breath Cyclobenzaprine [Flexeril] 10 mg PO BID@1000,2100 metFORMIN HCL [Glucophage] 850 mg PO BID@1000,2100 Simvastatin [Zocor] 40 mg PO HS@2100 Cetirizine HCl 10 mg PO DAILY@1000 INSULIN LISPRO (humaLOG) [humaLOG] See Protocol SQ TID-W/MEALS Albuterol Sulfate 2.5 mg INHALATION RT-QID PRN PRN Reason: Shortness Of Breath Latanoprost Ophth [Xalatan 0.005%] 1 drop BOTH EYES HS Aspirin EC [Ecotrin Low Dose] 81 mg PO DAILY@1000 Levothyroxine Sodium [Synthroid] 88 mcg PO DAILY@0930 Pregabalin [Lyrica] 100 mg PO BID@999,2099 Venlafaxine HCl [Effexor XR] 150 mg PO DAILY@1000 HYDROcodone/APAP 10-325MG [[place] 10-325] 1 tab PO Q8H PRN #42 tab PRN Reason: Pain Nystatin 100,000Unit/gm Cream [Mycostatin Cream] 1 applic TOPICAL TID PRN PRN Reason: Skin Irritation Insulin Glargine,Hum.rec.anlog [Basaglar Kwikpen U-100] 80 unit SQ AC-SUPPER Insulin Glargine,Hum.rec.anlog [Basaglar Kwikpen U-100] 100 unit SQ AC-BRKFST Triamterene-Hctz 37.5-25Mg [Maxzide 37.5-25] 1 tab PO BID@1000,1400 Discontinued Daptomycin 700mg 700 mg IV HS@1800 Discharge Medication List Albuterol Inhaler [Ventolin Hfa Inhaler] 1 - 2 puff INHALATION RT-QID PRN [History] Cyclobenzaprine [Flexeril] 10 mg PO BID@999,209902/18/14 [History] Simvastatin [Zocor] 40 mg PO HS@209902/18/14 [History] metFORMIN HCL [Glucophage] 850 mg PO BID@999,209902/18/14 [History] Cetirizine HCl 10 mg PO DAILY@1000 10/25/14 [History] INSULIN LISPRO (humaLOG) [humaLOG] See Protocol SQ TID-W/MEALS 06/18/15 [History ] Albuterol Sulfate 2.5 mg INHALATION RT-QID PRN 12/14/15 [History] Latanoprost Ophth [Xalatan 0.005%] 1 drop BOTH EYES HS 12/14/15 [History] Aspirin EC [Ecotrin Low Dose] 81 mg PO DAILY@1000 06/01/16 [History] Levothyroxine Sodium [Synthroid] 88 mcg PO DAILY@0930 11/19/16 [History] Pregabalin [Lyrica] 100 mg PO BID@1000,209903/26/17 [History] Venlafaxine HCl [Effexor XR] 150 mg PO DAILY@1000 03/26/17 [History] HYDROcodone/APAP 10-325MG [[place] 10-325] 1 tab PO Q8H PRN #42 tab 03/30/17 [Rx] Insulin Glargine,Hum.rec.anlog [Basaglar Kwikpen U-100] 80 unit SQ AC-SUPPER [History] Insulin Glargine,Hum.rec.anlog [Basaglar Kwikpen U-100] 100 unit SQ AC-BRKFST [History] Nystatin 100,000Unit/gm Cream [Mycostatin Cream] 1 applic TOPICAL TID PRN [History] Triamterene-Hctz 37.5-25Mg [Maxzide 37.5-25] 1 tab PO BID@1000,1400 05/17/17 [ History] Ciprofloxacin HCl [Cipro] 500 mg PO Q12HR #28 tablet 05/27/17 [Rx] Docusate [Colace] 100 mg PO BID #60 cap 05/29/17 [Rx] Follow up Appointment(s)/Referral(s): Chris Nielsen MD [STAFF PHYSICIAN] - 1 Week Lilibeth Seymour MD [Primary Care Provider] - 1 Week [facility] Visiting Nurse, [NON-STAFF] - As Needed Patient Instructions/Handouts: Type 2 Diabetes in Adults (DC), Diabetic Foot Ulcers (DC) Activity/Diet/Wound Care/Special Instructions: Diabetic, cardiac diet. Activity: Nonweightbearing on left heel Discharge Disposition: HOME WITH HOME HEALTH SERVICES
[2017-05-29 11:40] LABS: Glucose,Whole Blood 155 mg/dL (75-99)
[2017-05-29] MEDS: VANCOMYCIN 2,250 MG in SODIUM CHLORIDE 0.9% 500 ML IVPB SCH (11:46)
[2017-05-30] MEDS ORDERED: VANCOMYCIN TROUGH DUE 1 EACH MISC MISCELLANE ONE (05:00)
--- NOTE | 2017-06-05 08:05 | CDI ---
Last Revision, March 2017 Documentation Clarification Form Date: 06/05/2017 7:41:00 AM From: REGINO Edouard; Azalia Minaya, Automotive Glass Specialist Admit Date: 05/24/2017 8:09:00 PM Patient Name: Alem Baker Visit Number: [id number] Discharge Date: 05/29/2017 ATTENTION: The Clinical Documentation Specialists (CDI) and [facility] Coding Staff appreciate your assistance in clarifying documentation. Please respond to the clarification below the line at the bottom and electronically sign. The CDI & [facility] Coding staff will review the response and follow-up if needed. Please note: Queries are made part of the Legal Health Record. If you have any questions, please contact the author of this message via ITS. Dr. Lilibeth Seymour The patient presented with nausea, vomiting and cellulitis of the right foot and Vitals in ED; temp 101.3, WBC 6.2, BP 147/65, pulse 100, resp 22. PICC line was removed. Tip culture was negative. Blood culture showed gram- negative bacilli. UA culture was positive for E-coli, gram-negative and Klebsiella. Treatment includes IV vancomycin. Infectious disease was consulted and sepsis from urinary source is documented on their progress note dated 05/28. The discharge summary states bacteremia. In your professional opinion, can you please clarify if you agree with transportation sales consultant's assessment? Sepsis ruled in Sepsis ruled out Other, please specify Unable to determine If you have a question about this query, please contact Azalia Minaya Automotive Glass Specialist at [phone] between 8am and 5pm. VU
== END 2017-05-29 15:32 | disposition home health service (06) | DRG 872 ==
LOC: EC 18:10 → 4MS4W 20:09
PROVIDERS: ADMIT Internal Medicine; ATTEND Internal Medicine
PROC: 02PYX3Z Removal of Infusion Device from Great Vessel, External Approach (ICD-10-PCS; principal; 2017-05-24)
DX: A41.51 Sepsis due to Escherichia coli [E. coli] (principal); D69.6 Thrombocytopenia, unspecified; E11.621 Type 2 diabetes mellitus with foot ulcer; E11.649 Type 2 diabetes mellitus with hypoglycemia without coma; E11.65 Type 2 diabetes mellitus with hyperglycemia; N39.0 Urinary tract infection, site not specified; L03.115 Cellulitis of right lower limb; L97.419 Non-pressure chronic ulcer of right heel and midfoot with unspecified severity; M86.9 Osteomyelitis, unspecified; B00.1 Herpesviral vesicular dermatitis; B95.62 Methicillin resistant Staphylococcus aureus infection as the cause of diseases classified elsewhere; B96.1 Klebsiella pneumoniae [K. pneumoniae] as the cause of diseases classified elsewhere; D64.9 Anemia, unspecified; E03.9 Hypothyroidism, unspecified; E11.69 Type 2 diabetes mellitus with other specified complication; E66.01 Morbid (severe) obesity due to excess calories; E78.5 Hyperlipidemia, unspecified; F12.90 Cannabis use, unspecified, uncomplicated; F32.9 Major depressive disorder, single episode, unspecified; F41.9 Anxiety disorder, unspecified; F60.3 Borderline personality disorder; G47.33 Obstructive sleep apnea (adult) (pediatric); H40.9 Unspecified glaucoma; J44.9 Chronic obstructive pulmonary disease, unspecified; K59.00 Constipation, unspecified; K74.60 Unspecified cirrhosis of liver; Z79.4 Long term (current) use of insulin; Z82.49 Family history of ischemic heart disease and other diseases of the circulatory system; Z85.41 Personal history of malignant neoplasm of cervix uteri; Z87.891 Personal history of nicotine dependence; Z90.710 Acquired absence of both cervix and uterus; Z99.3 Dependence on wheelchair; Z88.0 Allergy status to penicillin; L97.519 Non-pressure chronic ulcer of other part of right foot with unspecified severity; L97.529 Non-pressure chronic ulcer of other part of left foot with unspecified severity
CPT/HCPCS: 36415; 71046; 80053; 80061; 80202; 81001; 82728; 83036; 83540; 83550; 83605; 85025; 85610; 85730; 87040; 87070; 87077; 87086; 87186; 87502; 94640; 96360; 96361; 99285

== ENCOUNTER 2017-07-08 16:26 | Observation (INO) | payer OTHER ==
[2017-07-08 17:54] LABS: Anisocytosis Slight; Basophils % (A) 1 %; Eosinophils # (A) 0.3 k/uL (0-0.7); Eosinophils % (A) 4 %; HCT 36.7 % (34.0-46.0); Hypochromasia Slight; Lymphocytes # (A) 1.2 k/uL (1.0-4.8); Lymphocytes % (A) 17 %; MCH 27.7 pg (25.0-35.0); MCHC 32.6 g/dL (31.0-37.0); MCV 84.9 fL (80.0-100.0); Mean Platelet Volume 9.1; Monocytes # (A) 0.4 k/uL (0-1.0); Monocytes % (A) 5 %; Neutrophils # (A) 4.9 k/uL (1.3-7.7); Neutrophils % (A) 72 %; Poikilocytosis Slight; RBC 4.32 m/uL (3.80-5.40); WBC 6.9 k/uL (3.8-10.6)
[2017-07-08 17:55] LABS: Platelet Count 90 k/uL (150-450)
[2017-07-08 17:57] LABS: ALT 21 U/L (9-52); AST 24 U/L (14-36); Albumin 3.6 g/dL (3.5-5.0); Alkaline Phosphatase 98 U/L (38-126); Anion Gap 12 mmol/L; Blood Urea Nitrogen 16 mg/dL (7-17); Carbon Dioxide 26 mmol/L (22-30); Chloride 103 mmol/L (98-107); Glucose 402 mg/dL (74-99); Potassium 4.4 mmol/L (3.5-5.1); Sodium 141 mmol/L (137-145); Total Bilirubin 0.4 mg/dL (0.2-1.3); Total Protein 7.2 g/dL (6.3-8.2)
--- NOTE | 2017-07-08 17:59 | XR ---
EXAMINATION TYPE: XR foot complete bilateral DATE OF EXAM: 07/08/2017 COMPARISON: 02/14/2017 HISTORY: Pain nonhealing wound TECHNIQUE: Bilateral feet 3 views each FINDINGS: Right foot: Images obtained through a wrapping. There is soft tissue swelling over the late ral malleolus. No acute osseous abnormality is evident. Plantar and Achilles tendon calcaneal heel sp urs are present. There is some soft tissue abnormality at the heel pad. Suspicious cortical erosion t o suggest osteomyelitis is not identified. 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 Acute fractures are no t identified. Plantar and Achilles tendon calcaneal heel spurs are present. Hammertoes are present. COMPARISON: Soft tissue abnormality at the right heel is developing progressive. Findings otherwise a ppear stable. IMPRESSION: 1. Right heel pad soft tissue abnormality compatible with an ulceration. No underlying osseous abnor mality is evident. 2. Postsurgical changes left third digit
--- NOTE | 2017-07-08 18:13 | ED ---
General Adult HPI - General Chief complaint: Skin/Abscess/Foreign Body Stated complaint: diabetic foot ulcers Time Seen by Provider: 07/08/17 16:53 Source: patient, RN notes reviewed Mode of arrival: wheelchair Limitations: no limitations - History of Present Illness Initial comments: Patient's a 61-year-old female seen in the past medical history for diabetes, MRSA, presenting to the emergency room today with a chief complaint of beginning of ulcer to the second and fourth digits of the left foot. Patient says she has a history of a diabetic foot ulcer to the right heel that is been treated with antibiotics. Since she's currently not on any antibiotics for seizures wound care. He has a cast placed over this. Patient says she's had increased pain to this area as well as seen some redness and some discoloration of the toes on the left foot. Patient states she saw to dark spots yesterday. Came here to the emergency room was not seen. States that she woke up today noticed there is 2 more spots to the second digit of the left foot. Patient says she's concerned that infection has spread. She does admit to some mild discomfort to the left toes states she does have a history of neuropathy. She denies any other complaints or symptoms. Patient denies any recent fever, chills , shortness of breath, chest pain, back pain, abdominal pain, nausea or vomiting , headaches or visual changes, or any other complaints. - Related Data Home Medications Medication Instructions Recorded Confirmed Albuterol Inhaler [Ventolin Hfa 1 - 2 puff INHALATION RT-QID PRN 02/18/14 Inhaler] Cyclobenzaprine [Flexeril] 10 mg PO BID@999,209902/18/14 07/03/17 Simvastatin [Zocor] 40 mg PO HS@209902/18/14 07/03/17 metFORMIN HCL [Glucophage] 850 mg PO BID@999,209902/18/14 07/03/17 Cetirizine HCl 10 mg PO DAILY@99910/25/14 07/03/17 INSULIN LISPRO (humaLOG) [humaLOG] See Protocol SQ TID-W/MEALS 06/18/15 07/03/17 Albuterol Sulfate 2.5 mg INHALATION RT-QID PRN 12/14/15 07/03/17 Latanoprost Ophth [Xalatan 0.005%] 1 drop BOTH EYES HS 12/14/15 07/03/17 Aspirin EC [Ecotrin Low Dose] 81 mg PO DAILY@1000 06/01/16 07/03/17 Levothyroxine Sodium [Synthroid] 88 mcg PO DAILY@0930 11/19/16 07/03/17 Pregabalin [Lyrica] 100 mg PO BID@1000,2100 03/26/17 07/03/17 Venlafaxine HCl [Effexor XR] 150 mg PO DAILY@1000 03/26/17 07/03/17 Insulin Glargine,Hum.rec.anlog 80 unit SQ AC-SUPPER 05/17/17 07/03/17 [Basaglar Kwikpen U-100] Insulin Glargine,Hum.rec.anlog 100 unit SQ AC-BRKFST 05/17/17 07/03/17 [Basaglar Kwikpen U-100] Nystatin 100,000Unit/gm Cream 1 applic TOPICAL TID PRN 05/17/17 07/03/17 [Mycostatin Cream] Triamterene-Hctz 37.5-25Mg 1 tab PO BID@1000,1400 05/17/17 07/03/17 [Maxzide 37.5-25] Previous Rx's Medication Instructions Recorded HYDROcodone/APAP 10-325MG [[place] 1 tab PO Q8H PRN #42 tab 03/30/17 10-325] Docusate [Colace] 100 mg PO BID #60 cap 05/29/17 valACYclovir HCL [Valtrex] 2,000 mg PO Q12HR #2 tab 05/29/17 Allergies Allergy/AdvReac Type Severity Reaction Status Date / Time Penicillins Allergy Anaphylaxis Verified 07/08/17 16:31 Review of Systems ROS Statement: Those systems with pertinent positive or pertinent negative responses have been documented in the HPI. ROS Other: All systems not noted in ROS Statement are negative. Past Medical History Past Medical History: Asthma, Cancer, COPD, Diabetes Mellitus, Eye Disorder, Hyperlipidemia, Liver Disease, Musculoskeletal Disorder, Neurologic Disorder, Osteoarthritis (OA), Sleep Apnea/CPAP/BIPAP, Thyroid Disorder Additional Past Medical History / Comment(s): History of osteomyelitis left #3 toe and left calf: 2004. cervical cancer (in remission.) Wound vac. Cirrhosis of the liver r/t diabetes - sees Dr. Barraza History of Any Multi-Drug Resistant Organisms: MRSA Date of last positivie culture/infection: 03/20/17 MDRO Source:: MRSA HEEL Past Surgical History: Section, Cholecystectomy, Hysterectomy, Orthopedic Surgery, Tonsillectomy, Tubal Ligation Additional Past Surgical History / Comment(s): Cataracts and laser surgery for glaucoma. Multiple I&D to left foot and lower leg. Past Anesthesia/Blood Transfusion Reactions: No Reported Reaction Past Psychological History: Anxiety, Bipolar, Depression Smoking Status: Former smoker Past Alcohol Use History: None Reported Past Drug Use History: Marijuana - Past Family History Father Family Medical History: Congestive Heart Failure (CHF), Coronary Artery Disease (CAD), Myocardial Infarction ([place]) Mother Family Medical History: Coronary Artery Disease (CAD), CVA/TIA, Dementia, Myocardial Infarction ([place]) General Exam - General Exam Comments Initial Comments: General: The patient is awake and alert, in no distress, and does not appear acutely ill. Eye: Pupils are equal, round and reactive to light, extra-ocular movements are intact. No nystagmus. There is normal conjunctiva bilaterally. No signs of icterus. Ears, nose, mouth and throat: There are moist mucous membranes and no oral lesions. Neck: The neck is supple, there is no tenderness or JVD. Cardiovascular: There is a regular rate and rhythm. No murmur, rub or gallop is appreciated. Respiratory: Lungs are clear to auscultation, respirations are non-labored, breath sounds are equal. No wheezes, stridor, rales, or rhonchi. Musculoskeletal: Normal ROM, no tenderness. Strength 5/5. Sensation intact. Pulses equal bilaterally 2+. Neurological: A&O x 3. CN II-XII intact, There are no obvious motor or sensory deficits. Coordination appears grossly intact. Speech is normal. Skin: There proximal May 4 small dark circular spots to the second and fourth digits of the left foot. Third digit surgically absent. There is increased redness to the second digit. No lymphangitic streaking. Psychiatric: Cooperative, appropriate mood & affect, normal judgment. Limitations: no limitations Course Vital Signs 07/08/17 16:27 Temperature 97.7 F Pulse Rate 83 Respiratory 18 Rate Blood Pressure 150/65 O2 Sat by Pulse 98 Oximetry Medical Decision Making - Medical Decision Making X-rays have been reviewed showing no acute findings. No sign of osteomyelitis. Patient's labs no elevated white count. No fever. Patient does have increased redness some swelling to the second digit of the left foot. There are a few black eschar appearance also is starting. Patient will be admitted to start on vancomycin due to history of MRSA and cellulitis and a chronic wound to the right foot. Patient will have consult to Dr. Nielsen. - Lab Data Result diagrams: 07/08/17 17:25 07/08/17 17:25 Lab Results 07/08/17 07/08/17 Range/Units 17:25 17:25 WBC 6.9 (3.8-10.6) k/uL RBC 4.32 (3.80-5.40) m/uL Hgb 12.0 (11.4-16.0) gm/dL Hct 36.7 (34.0-46.0) % MCV 84.9 (80.0-100.0) fL MCH 27.7 (25.0-35.0) pg MCHC 32.6 (31.0-37.0) g/dL RDW 16.0 H (11.5-15.5) % Plt Count 90 L (150-450) k/uL Neutrophils % 72 % Lymphocytes % 17 % Monocytes % 5 % Eosinophils % 4 % Basophils % 1 % Neutrophils # 4.9 (1.3-7.7) k/uL Lymphocytes # 1.2 (1.0-4.8) k/uL Monocytes # 0.4 (0-1.0) k/uL Eosinophils # 0.3 (0-0.7) k/uL Basophils # 0.0 (0-0.2) k/uL Hypochromasia Slight Poikilocytosis Slight Anisocytosis Slight Sodium 141 (137-145) mmol/L Potassium 4.4 (3.5-5.1) mmol/L Chloride 103 (98-107) mmol/L Carbon Dioxide 26 (22-30) mmol/L Anion Gap 12 mmol/L BUN 16 (7-17) mg/dL Creatinine 0.70 (0.52-1.04) mg/dL Est GFR (CKD-EPI)AfAm >90 (>60 ml/min/1.73 sqM) Est GFR (CKD-EPI)NonAf >90 (>60 ml/min/1.73 sqM) Glucose 402 H (74-99) mg/dL Calcium 9.0 (8.4-10.2) mg/dL Total Bilirubin 0.4 (0.2-1.3) mg/dL AST 24 (14-36) U/L ALT 21 (9-52) U/L Alkaline Phosphatase 98 (38-126) U/L Total Protein 7.2 (6.3-8.2) g/dL Albumin 3.6 (3.5-5.0) g/dL Disposition Clinical Impression: Cellulitis, Diabetes mellitus Disposition: ADMITTED IP TO THIS HOSP Condition: Good Referrals: Lilibeth Seymour MD [Primary Care Provider] - 1-2 days Time of Disposition: 18:34
[2017-07-08] MEDS ORDERED: VANCOMYCIN 1,000 MG in SODIUM CHLORIDE 0.9% 250 ML IVPB STA (18:27)
[2017-07-08] MEDS ORDERED: VANCOMYCIN IV PER PHARMACY 1 EACH MISC MISCELLANE PRN (18:27)
[2017-07-08] MEDS ORDERED: VANCOMYCIN 2,250 MG in SODIUM CHLORIDE 0.9% 500 ML IVPB STA (18:32)
[2017-07-08] MEDS ORDERED: NALOXONE 0.4 MG/ML 1 ML VIAL IV PRN (18:54)
[2017-07-08] MEDS ORDERED: ONDANSETRON 4 MG/2 ML VIAL IVP PRN (18:54)
[2017-07-08] MEDS ORDERED: LORazepam 2 MG/ML INJ IV PRN (18:54)
[2017-07-08] MEDS ORDERED: SODIUM CHLORIDE 0.9% 1,000 ML IV ONE (18:54)
[2017-07-08] MEDS ORDERED: MORPHINE SULFATE 4MG/4ML SYRG IV PRN (18:54)
[2017-07-08] MEDS: HYDROcodone/APAP 5-325MG 1 EACH TAB PO PRN (20:11)
[2017-07-08 20:14] LABS: Glucose,Whole Blood 302 mg/dL (75-99)
[2017-07-08] MEDS: INSULIN ASPART 100 UNIT/ML 1 ML 10 ML VIAL SQ SCH (21:36)
[2017-07-08] MEDS: INSULIN DETEMIR 100 UNIT/ML 10 ML VIAL SQ SCH (21:37)
[2017-07-08] MEDS: MEROPENEM 1 GM in SODIUM CHLORIDE 0.9% 100 ML IVPB SCH (21:37)
[2017-07-09 01:52] LABS: Glucose,Whole Blood 162 mg/dL (75-99)
[2017-07-09] MEDS: MEROPENEM 1 GM in SODIUM CHLORIDE 0.9% 100 ML IVPB SCH ×3 (05:18→21:40)
[2017-07-09] MEDS: HYDROcodone/APAP 5-325MG 1 EACH TAB PO PRN (05:51)
[2017-07-09] MEDS: VANCOMYCIN 2,250 MG in SODIUM CHLORIDE 0.9% 500 ML IVPB SCH ×2 (05:52→17:39)
[2017-07-09 07:14] LABS: Anisocytosis Slight; Basophils % (A) 0 %; Eosinophils # (A) 0.3 k/uL (0-0.7); Eosinophils % (A) 4 %; HCT 34.9 % (34.0-46.0); HGB 11.2 gm/dL (11.4-16.0); Hypochromasia Slight; Lymphocytes # (A) 1.4 k/uL (1.0-4.8); Lymphocytes % (A) 19 %; MCH 27.2 pg (25.0-35.0); MCHC 32.2 g/dL (31.0-37.0); MCV 84.5 fL (80.0-100.0); Mean Platelet Volume 8.8; Monocytes # (A) 0.4 k/uL (0-1.0); Monocytes % (A) 5 %; Neutrophils # (A) 5.1 k/uL (1.3-7.7); Neutrophils % (A) 69 %; Poikilocytosis Slight; RBC 4.13 m/uL (3.80-5.40); RDW 16.1 % (11.5-15.5); WBC 7.4 k/uL (3.8-10.6)
[2017-07-09 07:16] LABS: Glucose,Whole Blood 73 mg/dL (75-99)
[2017-07-09 07:20] LABS: Platelet Count 86 k/uL (150-450)
[2017-07-09 07:37] LABS: ALT 25 U/L (9-52); AST 21 U/L (14-36); Alkaline Phosphatase 89 U/L (38-126); Anion Gap 8 mmol/L; Blood Urea Nitrogen 14 mg/dL (7-17); Calcium 8.8 mg/dL (8.4-10.2); Carbon Dioxide 31 mmol/L (22-30); Chloride 106 mmol/L (98-107); Glucose 76 mg/dL (74-99); Potassium 4.4 mmol/L (3.5-5.1); Sodium 145 mmol/L (137-145); Total Bilirubin 0.4 mg/dL (0.2-1.3); Total Protein 6.2 g/dL (6.3-8.2)
[2017-07-09] MEDS: INSULIN ASPART 100 UNIT/ML 1 ML 10 ML VIAL SQ SCH ×4 (08:30→21:41)
[2017-07-09] MEDS ORDERED: HYDROcodone/APAP 10-325MG 1 EACH TAB PO PRN (09:03)
[2017-07-09] MEDS ORDERED: NYSTATIN 100,000UNIT/GM CREAM 30 GM TUBE TOPICAL PRN (09:03)
[2017-07-09] MEDS ORDERED: ALBUTEROL NEBULIZED 2.5 MG/3 ML INHALATION PRN (09:03)
[2017-07-09] MEDS ORDERED: INSULIN GLARGINE HUM REC ANLOG 100 UNIT SQ SCH (09:15)
--- NOTE | 2017-07-09 10:23 | P.CONS ---
History of Present Illness - Reason for Consult Consult date: 07/09/17 Cellulitis, chronic wounds - History of Present Illness This is a 61-year-old female patient well-known to ID service as she has been treated in the past for left foot osteomyelitis with MRSA status post amputation of the third toe with Dr. Foster in 2004, chronic nonhealing wound to the right foot that is a grade 3 diabetic ulcer at the heel with osteomyelitis and previously treated with IV antibiotics. She is currently seen weekly in the wound healing Center. Wound VAC was discontinued due to lack of improvement to the wound and she is now on both which is due to be removed tomorrow. Patient is complaining of a burning type pain from the heel down the lateral side of the foot which is new for her. Last week, she noted blisters started on the second and fourth toes on the left foot. On Sunday she took her boot off and the blisters on the left foot opened. She apparently came into [facility] emergency center initially on Sunday but walked out and then return on Sunday. She states by that time the blistered had multiplied to about 5 on the second toe. She was found to be afebrile with a white count of 6.9, platelet count 90, blood sugar was 402, albumin 3.6, blood cultures status received. Hemoglobin A1c is in process. Bilateral foot x-ray revealed right heel pad soft tissue abnormality compatible with ulceration. No underlying osseous abnormality is evident. Postsurgical changes on the left third digit. She has been started on meropenem and vancomycin. Regarding patient's blood sugars, she states she is unable to follow diabetic diet at home due to financial reasons and blood sugar normally runs in the 200s. Review of Systems All systems: negative Constitutional: Denies anorexia, Denies chills, Denies fatigue, Denies fever, Denies lethargy, Denies night sweats, Denies poor appetite, Denies sweats, Denies weight loss Eyes: denies blurred vision, denies pain Ears, nose, mouth and throat: Denies dental pain, Denies headache, Denies mouth pain, Denies sore throat, Denies vertigo Cardiovascular: Denies chest pain, Denies decreased exercise tolerance, Denies dyspnea on exertion, Denies lightheadedness, Denies shortness of breath, Denies syncope Respiratory: Denies congestion, Denies cough, Denies cough with sputum, Denies dyspnea, Denies excessive sputum, Denies hemoptysis, Denies home oxygen, Denies wheezing Gastrointestinal: Denies abdominal pain, Denies diarrhea, Denies nausea, Denies vomiting Genitourinary: Denies dysuria, Denies hematuria, Denies urgency Musculoskeletal: Denies myalgias Integumentary: Reports wounds, Denies pruritus, Denies rash Neurological: Denies numbness, Denies weakness Psychiatric: Denies anxiety, Denies depression Endocrine: Denies fatigue, Denies weight change Past Medical History Past Medical History: Asthma, Cancer, COPD, Diabetes Mellitus, Eye Disorder, Hyperlipidemia, Liver Disease, Musculoskeletal Disorder, Neurologic Disorder, Osteoarthritis (OA), Sleep Apnea/CPAP/BIPAP, Thyroid Disorder Additional Past Medical History / Comment(s): History of osteomyelitis left #3 toe and left calf: 2004. cervical cancer (in remission.) Wound vac. Cirrhosis of the liver r/t diabetes - sees Dr. Barraza History of Any Multi-Drug Resistant Organisms: MRSA Year Discovered:: 03/20/17 MDRO Source:: MRSA HEEL Past Surgical History: Section, Cholecystectomy, Hysterectomy, Orthopedic Surgery, Tonsillectomy, Tubal Ligation Additional Past Surgical History / Comment(s): Cataracts and laser surgery for glaucoma. Multiple I&D to left foot and lower leg. Past Anesthesia/Blood Transfusion Reactions: No Reported Reaction Past Psychological History: Anxiety, Bipolar, Depression Additional Psychological History / Comment(s): Borderline personality Smoking Status: Former smoker Past Alcohol Use History: None Reported Additional Past Alcohol Use History / Comment(s): Patient was a smoker of 2 packs per day for 21 years and quit in 1992. She does use marijuana on occasional basis. She denies any medical marijuana card. She denies any alcohol use or abuse. She is currently living at home and one adult son is living with her. She has been on disability. She is mostly wheelchair bound. Medically disabled. No international travel. No animals in the home. Daughter with her child and child's father live in the basement of the home. Past Drug Use History: Marijuana - Past Family History Father Family Medical History: Congestive Heart Failure (CHF), Coronary Artery Disease (CAD), Myocardial Infarction ([place]) Mother Family Medical History: Coronary Artery Disease (CAD), CVA/TIA, Dementia, Myocardial Infarction ([place]) Medications and Allergies Home Medications Medication Instructions Recorded Confirmed Type Albuterol Inhaler [Ventolin Hfa 1 - 2 puff INHALATION RT-QID PRN 02/18/14 History Inhaler] Cyclobenzaprine [Flexeril] 10 mg PO BID@1000,2100 02/18/14 07/08/17 History Simvastatin [Zocor] 40 mg PO HS@209902/18/14 07/08/17 History metFORMIN HCL [Glucophage] 850 mg PO BID@1000,209902/18/14 07/08/17 History Cetirizine HCl 10 mg PO DAILY@99910/25/14 07/08/17 History Albuterol Sulfate 2.5 mg INHALATION RT-QID PRN 12/14/15 07/08/17 History Aspirin EC [Ecotrin Low Dose] 81 mg PO DAILY@1000 06/01/16 07/08/17 History Venlafaxine HCl [Effexor XR] 150 mg PO DAILY@99903/26/17 07/08/17 History HYDROcodone/APAP 10-325MG [[place] 1 tab PO Q8H PRN #42 tab 03/30/17 07/08/17 Rx 10-325] Insulin Glargine,Hum.rec.anlog 80 unit SQ AC-SUPPER 05/17/17 07/08/17 History [Basaglar Kwikpen U-100] Insulin Glargine,Hum.rec.anlog 100 unit SQ AC-BRKFST 05/17/17 07/08/17 History [Basaglar Kwikpen U-100] Nystatin 100,000Unit/gm Cream 1 applic TOPICAL TID PRN 05/17/17 07/08/17 History [Mycostatin Cream] Triamterene-Hctz 37.5-25Mg 1 tab PO BID@1000,1400 05/17/17 07/08/17 History [Maxzide 37.5-25] Fexofenadine HCl [Ruby Allergy] 180 mg PO DAILY 07/09/17 07/09/17 History Glucagon Emergency Kit 1 mg IM ONCE PRN 07/09/17 07/09/17 History INSULIN LISPRO (humaLOG) [humaLOG] 30 units SQ AC-TID 07/09/17 07/09/17 History Levothyroxine Sodium [Synthroid] 100 mcg PO DAILY 07/09/17 07/09/17 History Multivitamins, Thera [Multivitamin 1 tab PO DAILY 07/09/17 07/09/17 History (formulary)] Pregabalin [Lyrica] 75 mg PO BID 07/09/17 07/09/17 History Allergies Allergy/AdvReac Type Severity Reaction Status Date / Time Penicillins Allergy Anaphylaxis Verified 07/09/17 09:12 Physical Exam Vitals: Vital Signs Temp Pulse Pulse Resp BP BP Pulse Ox 07/09/17 07:00 97.8 F 76 16 129/51 94 L 07/08/17 20:23 98.4 F 80 16 130/67 99 07/08/17 18:51 98 F 86 18 132/70 98 07/08/17 16:27 97.7 F 83 18 150/65 98 Intake and Output 07/08/17 07/09/17 07/09/17 22:59 06:59 14:59 Intake Total 1800 1600 Balance 1800 1600 Intake: Intake, IV Titration 1200 1200 Amount Meropenem 1 gm In Sodium 100 100 Chloride 0.9% 100 ml @ 100 mls/hr IVPB Q8H [facility] Rx#:[id number] Sodium Chloride 0.9% 1, 600 600 000 ml @ 75 mls/hr IV . [id number] ONE Rx#:[id number] Vancomycin 2,250 mg In 500 500 Sodium Chloride 0.9% 500 ml @ 167 mls/hr IVPB Q12H [facility] Rx#:[id number] Oral 600 400 Other: Voiding Method Toilet # Voids 2 2 Weight 149.685 kg Gen: This is a morbidly obese 61-year-old female. She is sitting on the edge of the bed and appears to be comfortable and in no acute distress. HEENT: Head is atraumatic, normocephalic. Pupils equal, round. Sclerae is anicteric. Conjunctiva pink. Because members of the mouth are moist. Patient is edentulous. NECK: Supple. No JVD. No lymphadenopathy. No thyromegaly. LUNGS: Clear to auscultation. No wheezes or rhonchi. No intercostal retractions. HEART: Regular rate and rhythm. No murmur. ABDOMEN: Morbidly obese. Soft. Bowel sounds are present. No masses. No tenderness. Patient has mild erythema under abdominal apron and under bilateral breast. EXTREMITIES: Patient has cast in place to the right leg and new dressing was placed on the left foot which these will not be removed at this time and assessment deferred to Dr. Nielsen. NEUROLOGICAL: Patient is awake, alert and oriented x3. Cranial nerves 2 through 12 are grossly intact. Results Results: Laboratory Results WBC 7.4 k/uL (3.8-10.6) 07/09/17 06:45 RBC 4.13 m/uL (3.80-5.40) 07/09/17 06:45 Hgb 11.2 gm/dL (11.4-16.0) L 07/09/17 06:45 Hct 34.9 % (34.0-46.0) 07/09/17 06:45 MCV 84.5 fL (80.0-100.0) 07/09/17 06:45 MCH 27.2 pg (25.0-35.0) 07/09/17 06:45 MCHC 32.2 g/dL (31.0-37.0) 07/09/17 06:45 RDW 16.1 % (11.5-15.5) H 07/09/17 06:45 Plt Count 86 k/uL (150-450) L 07/09/17 06:45 Neutrophils % 69 % 07/09/17 06:45 Lymphocytes % 19 % 07/09/17 06:45 Monocytes % 5 % 07/09/17 06:45 Eosinophils % 4 % 07/09/17 06:45 Basophils % 0 % 07/09/17 06:45 Neutrophils # 5.1 k/uL (1.3-7.7) 07/09/17 06:45 Lymphocytes # 1.4 k/uL (1.0-4.8) 07/09/17 06:45 Monocytes # 0.4 k/uL (0-1.0) 07/09/17 06:45 Eosinophils # 0.3 k/uL (0-0.7) 07/09/17 06:45 Basophils # 0.0 k/uL (0-0.2) 07/09/17 06:45 Hypochromasia Slight 07/09/17 06:45 Poikilocytosis Slight 07/09/17 06:45 Anisocytosis Slight 07/09/17 06:45 Sodium 145 mmol/L (137-145) 07/09/17 06:45 Potassium 4.4 mmol/L (3.5-5.1) 07/09/17 06:45 Chloride 106 mmol/L (98-107) 07/09/17 06:45 Carbon Dioxide 31 mmol/L (22-30) H 07/09/17 06:45 Anion Gap 8 mmol/L 07/09/17 06:45 BUN 14 mg/dL (7-17) 07/09/17 06:45 Creatinine 0.72 mg/dL (0.52-1.04) 07/09/17 06:45 Est GFR (CKD-EPI)AfAm >90 (>60 ml/min/1.73 sqM) 07/09/17 06:45 Est GFR (CKD-EPI)NonAf >90 (>60 ml/min/1.73 sqM) 07/09/17 06:45 Glucose 76 mg/dL (74-99) 07/09/17 06:45 POC Glucose (mg/dL) 73 mg/dL (75-99) L 07/09/17 07:14 POC Glu Electrical Systems Designer Suzie Watts 07/09/17 07:14 Calcium 8.8 mg/dL (8.4-10.2) 07/09/17 06:45 Total Bilirubin 0.4 mg/dL (0.2-1.3) 07/09/17 06:45 AST 21 U/L (14-36) 07/09/17 06:45 ALT 25 U/L (9-52) 07/09/17 06:45 Alkaline Phosphatase 89 U/L (38-126) 07/09/17 06:45 Total Protein 6.2 g/dL (6.3-8.2) L 07/09/17 06:45 Albumin 3.0 g/dL (3.5-5.0) L 07/09/17 06:45 CBC & Chem 7: 07/09/17 06:45 07/09/17 06:45 Labs: Abnormal Lab Results - Last 24 Hours (Table) 07/08/17 07/08/17 07/08/17 Range/Units 17:25 17:25 20:13 Hgb (11.4-16.0) gm/dL RDW 16.0 H (11.5-15.5) % Plt Count 90 L (150-450) k/uL Carbon Dioxide (22-30) mmol/L Glucose 402 H (74-99) mg/dL POC Glucose (mg/dL) 302 H (75-99) mg/dL Total Protein (6.3-8.2) g/dL Albumin (3.5-5.0) g/dL 07/09/17 07/09/17 07/09/17 Range/Units 01:50 06:45 06:45 Hgb 11.2 L (11.4-16.0) gm/dL RDW 16.1 H (11.5-15.5) % Plt Count 86 L (150-450) k/uL Carbon Dioxide 31 H (22-30) mmol/L Glucose (74-99) mg/dL POC Glucose (mg/dL) 162 H (75-99) mg/dL Total Protein 6.2 L (6.3-8.2) g/dL Albumin 3.0 L (3.5-5.0) g/dL 07/09/17 Range/Units 07:14 Hgb (11.4-16.0) gm/dL RDW (11.5-15.5) % Plt Count (150-450) k/uL Carbon Dioxide (22-30) mmol/L Glucose (74-99) mg/dL POC Glucose (mg/dL) 73 L (75-99) mg/dL Total Protein (6.3-8.2) g/dL Albumin (3.5-5.0) g/dL Assessment and Plan Plan: This is a 61-year-old female patient well-known to ID service who presents for hospital with new wounds to the left foot, diabetic wounds/ulcers with blistering. Patient is currently under care for right heel diabetic ulcer. Patient has a cast in place to the right leg. Arrangements will be made to have cast removal from the right leg. Local wound care will be addressed. Patient is currently on meropenem and vancomycin. Blood cultures in progress. Continue supportive care. Further recommendations as patient regresses. The above dictated assessment and findings were discussed with Dr. Nielsen. The impression and plan of care have been directed as dictated. Tiffany La nurse practitioner acting as scribe for Dr. Nielsen.
[2017-07-09] MEDS: LORATADINE 10 MG TAB PO SCH (10:26)
[2017-07-09] MEDS: LEVOTHYROXINE 88 MCG TAB PO SCH (10:26)
[2017-07-09] MEDS: TRIAMTERENE-HCTZ 37.5-25MG 1 EACH TAB PO SCH ×2 (10:26→15:48)
[2017-07-09] MEDS: CYCLOBENZAPRINE 10 MG TAB PO SCH ×2 (10:26→21:37)
[2017-07-09] MEDS: metFORMIN 850 MG TAB PO SCH ×2 (10:26→21:40)
[2017-07-09] MEDS: VENLAFAXINE HCL ER 150 MG CAP PO SCH (10:26)
[2017-07-09] MEDS: PREGABALIN 100 MG CAP PO SCH ×2 (10:30→21:40)
[2017-07-09 11:46] LABS: Glucose,Whole Blood 169 mg/dL (75-99)
[2017-07-09 12:11] LABS: Hemoglobin A1C 8.7 % (4.0-6.0)
--- NOTE | 2017-07-09 12:48 | P.HPIM ---
History of Present Illness H&P Date: 07/09/17 Chief Complaint: Left foot second and fourth toe skin changes This is a 61-year-old female with a known past medical history of a chronic diabetic right heel ulcer with MRSA and chronic osteomyelitis. She is followed by Dr. Nielsen in the wound care center. She also has a history of diabetes mellitus type 2, hyperlipidemia, hypothyroidism and morbid obesity. She is also required left foot third toe amputation in the past. Patient presents to the emergency room with skin changes to the second and fourth toe. She reports last week she notices blisters forming on that second and fourth toe. She had where a para of shoes that had rubbed the area. She was seen by Dr. Nielsen on Sunday and told to monitor them. Patient reports that it had worsened. She initially came into the emergency room on Sunday but walked out because of some issues and then returned on Sunday. The blisters are very small black circles on the second and fourth toe. There is about 2 on the second and 3 on the fourth toe. No drainage. In the blisters are currently flat. No pain. However patient has peripheral neuropathy from her diabetes and does not have much feeling in that foot. She has been admitted to the hospital and placed on IV vancomycin and meropenem. Infectious disease consulted. X-ray of the feet bilaterally showed no evidence of osteomyelitis. Patient denies any fever, chills, sweats, nausea or vomiting, bowel movement changes or urinary symptoms. When she presented to the emergency room she was afebrile and white count 6.9. She did have elevated glucose of 402. Patient reports she does not eat right at home due to financial reasons. After being placed on diabetic diet blood sugar this morning was 76. Her morning insulin was held. Review of Systems Please refer to HPI otherwise unremarkable Past Medical History Past Medical History: Asthma, Cancer, COPD, Diabetes Mellitus, Eye Disorder, Hyperlipidemia, Liver Disease, Musculoskeletal Disorder, Neurologic Disorder, Osteoarthritis (OA), Sleep Apnea/CPAP/BIPAP, Thyroid Disorder Additional Past Medical History / Comment(s): History of osteomyelitis left #3 toe and left calf: 2004. cervical cancer (in remission.) Wound vac. Cirrhosis of the liver r/t diabetes - sees Dr. Barraza History of Any Multi-Drug Resistant Organisms: MRSA Date of last positivie culture/infection: 03/20/17 MDRO Source:: MRSA HEEL Past Surgical History: Section, Cholecystectomy, Hysterectomy, Orthopedic Surgery, Tonsillectomy, Tubal Ligation Additional Past Surgical History / Comment(s): Cataracts and laser surgery for glaucoma. Multiple I&D to left foot and lower leg. Past Anesthesia/Blood Transfusion Reactions: No Reported Reaction Past Psychological History: Anxiety, Bipolar, Depression Additional Psychological History / Comment(s): Borderline personality Smoking Status: Former smoker Past Alcohol Use History: None Reported Additional Past Alcohol Use History / Comment(s): Patient was a smoker of 2 packs per day for 21 years and quit in 1992. She does use marijuana on occasional basis. She denies any medical marijuana card. She denies any alcohol use or abuse. She is currently living at home and one adult son is living with her. She has been on disability. She is mostly wheelchair bound. Medically disabled. No international travel. No animals in the home. Daughter with her child and child's father live in the basement of the home. Past Drug Use History: Marijuana - Past Family History Father Family Medical History: Congestive Heart Failure (CHF), Coronary Artery Disease (CAD), Myocardial Infarction ([place]) Mother Family Medical History: Coronary Artery Disease (CAD), CVA/TIA, Dementia, Myocardial Infarction ([place]) Medications and Allergies Home Medications Medication Instructions Recorded Confirmed Type Albuterol Inhaler [Ventolin Hfa 1 - 2 puff INHALATION RT-QID PRN 02/18/14 History Inhaler] Cyclobenzaprine [Flexeril] 10 mg PO BID@999,209902/18/14 07/08/17 History Simvastatin [Zocor] 40 mg PO HS@209902/18/14 07/08/17 History metFORMIN HCL [Glucophage] 850 mg PO BID@1000,209902/18/14 07/08/17 History Cetirizine HCl 10 mg PO DAILY@99910/25/14 07/08/17 History Albuterol Sulfate 2.5 mg INHALATION RT-QID PRN 12/14/15 07/08/17 History Aspirin EC [Ecotrin Low Dose] 81 mg PO DAILY@1000 06/01/16 07/08/17 History Venlafaxine HCl [Effexor XR] 150 mg PO DAILY@1000 03/26/17 07/08/17 History HYDROcodone/APAP 10-325MG [[place] 1 tab PO Q8H PRN #42 tab 03/30/17 07/08/17 Rx 10-325] Insulin Glargine,Hum.rec.anlog 80 unit SQ AC-SUPPER 05/17/17 07/08/17 History [Basaglar Kwikpen U-100] Insulin Glargine,Hum.rec.anlog 100 unit SQ AC-BRKFST 05/17/17 07/08/17 History [Basaglar Kwikpen U-100] Nystatin 100,000Unit/gm Cream 1 applic TOPICAL TID PRN 05/17/17 07/08/17 History [Mycostatin Cream] Triamterene-Hctz 37.5-25Mg 1 tab PO BID@1000,1400 05/17/17 07/08/17 History [Maxzide 37.5-25] Fexofenadine HCl [Ruby Allergy] 180 mg PO DAILY 07/09/17 07/09/17 History Glucagon Emergency Kit 1 mg IM ONCE PRN 07/09/17 07/09/17 History INSULIN LISPRO (humaLOG) [humaLOG] 30 units SQ AC-TID 07/09/17 07/09/17 History Levothyroxine Sodium [Synthroid] 100 mcg PO DAILY 07/09/17 07/09/17 History Multivitamins, Thera [Multivitamin 1 tab PO DAILY 07/09/17 07/09/17 History (formulary)] Pregabalin [Lyrica] 75 mg PO BID 07/09/17 07/09/17 History Allergies Allergy/AdvReac Type Severity Reaction Status Date / Time Penicillins Allergy Anaphylaxis Verified 07/09/17 09:12 Physical Exam Vitals: Vital Signs Temp Pulse Pulse Resp BP BP Pulse Ox 07/09/17 08:00 76 16 07/09/17 07:00 97.8 F 76 16 129/51 94 L 07/08/17 20:23 98.4 F 80 16 130/67 99 07/08/17 18:51 98 F 86 18 132/70 98 07/08/17 16:27 97.7 F 83 18 150/65 98 Intake and Output 07/08/17 07/09/17 07/09/17 22:59 06:59 14:59 Intake Total 1800 1600 480 Balance 1800 1600 480 Intake: Intake, IV Titration 1200 1200 Amount Meropenem 1 gm In Sodium 100 100 Chloride 0.9% 100 ml @ 100 mls/hr IVPB Q8H [facility] Rx#:[id number] Sodium Chloride 0.9% 1, 600 600 000 ml @ 75 mls/hr IV . [id number] Rx#:[id number] Vancomycin 2,250 mg In 500 500 Sodium Chloride 0.9% 500 ml @ 167 mls/hr IVPB Q12H [facility] Rx#:[id number] Oral 600 400 480 Other: Voiding Method Toilet Toilet # Voids 2 2 Weight 149.685 kg Head normocephalic Neck supple Lungs clear to auscultation bilaterally no wheezing or crackles Heart regular rate and rhythm S1-S2, no rub or gallop Abdomen is soft nontender nondistended positive bowel sounds no hepatosplenomegaly Extremities patient has right cast and brace on right leg. This will be assessed per Dr. Nielsen. Left foot second toe has 2 small black circular blisters and fourth toe 3 black circular blisters Neuro alert and orientated to 3 Results CBC & Chem 7: 07/09/17 06:45 07/09/17 06:45 Labs: Abnormal Lab Results - Last 24 Hours (Table) 07/08/17 07/08/17 07/08/17 Range/Units 17:25 17:25 20:13 Hgb (11.4-16.0) gm/dL RDW 16.0 H (11.5-15.5) % Plt Count 90 L (150-450) k/uL Carbon Dioxide (22-30) mmol/L Glucose 402 H (74-99) mg/dL POC Glucose (mg/dL) 302 H (75-99) mg/dL Total Protein (6.3-8.2) g/dL Albumin (3.5-5.0) g/dL 07/09/17 07/09/17 07/09/17 Range/Units 01:50 06:45 06:45 Hgb 11.2 L (11.4-16.0) gm/dL RDW 16.1 H (11.5-15.5) % Plt Count 86 L (150-450) k/uL Carbon Dioxide 31 H (22-30) mmol/L Glucose (74-99) mg/dL POC Glucose (mg/dL) 162 H (75-99) mg/dL Total Protein 6.2 L (6.3-8.2) g/dL Albumin 3.0 L (3.5-5.0) g/dL 07/09/17 07/09/17 Range/Units 07:14 11:32 Hgb (11.4-16.0) gm/dL RDW (11.5-15.5) % Plt Count (150-450) k/uL Carbon Dioxide (22-30) mmol/L Glucose (74-99) mg/dL POC Glucose (mg/dL) 73 L 169 H (75-99) mg/dL Total Protein (6.3-8.2) g/dL Albumin (3.5-5.0) g/dL Thrombosis Risk Factor Assmnt - Choose All That Apply Any of the Below Risk Factors Present?: Yes Each Factor Represents 1 point: Age 41-60 years Thrombosis Risk Factor Assessment Total Risk Factor Score: 1 Thrombosis Risk Factor Assessment Level: Low Risk Assessment and Plan Assessment: 1. Left foot second and fourth toe with blisters: Patient started on meropenem and IV vancomycin. Infectious disease consulted. X-ray showed no evidence of osteomyelitis. Blood culture pending 2. Diabetes mellitus type 2 with uncontrolled blood sugars. Blood sugar on admission was in the 400s. This morning blood glucose was in the 70s. Her morning Levemir was held. Continue Levemir 80 units at bedtime with a sliding scale coverage. Patient has better blood sugars during her hospitalization due to the diabetic diet 3. Chronic thrombocytopenia exact etiology unclear. Platelet count was 86. 4. Morbid obesity 5. Hyperlipidemia continue Lipitor 6. Hypothyroidism continue Synthroid 7. Chronic diabetic foot ulcer of the right heel with MRSA followed closely by infectious disease and the wound care center GI prophylaxis Pepcid and DVT prophylaxis SCDs due to patient's thrombocytopenia connective anticoagulation Time with Patient: Greater than 30 (Greater than 50% of the total time spent in counseling and coordination of care.I performed an examination of the patient and discussed their management with the physician [employer] Hand Engraver. I have reviewed the Physician [employer] Hand Eng[employer]ver's notes and agree with the documented findings and plan of care)
[2017-07-09] MEDS ORDERED: MORPHINE ORAL SOLN 10 MG/5 ML CUP PO PRN (13:44)
[2017-07-09 17:40] LABS: Glucose,Whole Blood 259 mg/dL (75-99)
[2017-07-09] MEDS: INSULIN DETEMIR 100 UNIT/ML 10 ML VIAL SQ SCH (18:01)
[2017-07-09 20:33] LABS: Glucose,Whole Blood 305 mg/dL (75-99)
[2017-07-09] MEDS ORDERED: ATORVASTATIN 20 MG TAB PO SCH (21:00)
[2017-07-09] MEDS ORDERED: LATANOPROST 0.005% OPHTH DROPS 2.5 ML BTL BOTH EYES SCH (21:00)
[2017-07-09 21:37] VITALS: PULSE 78; RESP 18
[2017-07-09] MEDS: DOCUSATE 100 MG CAP PO SCH (21:40)
--- NOTE | 2017-07-09 22:31 | P.CON ---
Consult Note - . Consult date: 07/09/17 Assessment/Plan:: his is a 61-year-old female patient well-known to ID service as she has been treated in the past for left foot osteomyelitis with MRSA status post amputation of the third toe with Dr. Foster in 2004, chronic nonhealing wound to the right foot that is a grade 3 diabetic ulcer at the heel with osteomyelitis and previously treated with IV antibiotics. She is currently seen weekly in the wound healing Center. Wound VAC was discontinued due to lack of improvement to the wound and she is now on both which is due to be removed tomorrow. Patient is complaining of a burning type pain from the heel down the lateral side of the foot which is new for her. Last week, she noted blisters started on the second and fourth toes on the left foot. On Sunday she took her boot off and the blisters on the left foot opened. She apparently came into [facility] emergency center initially on Sunday but walked out and then return on Sunday. She states by that time the blistered had multiplied to about 5 on the second toe. She was found to be afebrile with a white count of 6.9, platelet count 90, blood sugar was 402, albumin 3.6, blood cultures status received. Hemoglobin A1c is in process. Bilateral foot x-ray revealed right heel pad soft tissue abnormality compatible with ulceration. No underlying osseous abnormality is evident. Postsurgical changes on the left third digit. She has been started on meropenem and vancomycin. Regarding patient's blood sugars, she states she is unable to follow diabetic diet at home due to financial reasons and blood sugar normally runs in the 200s. Please see the consult note is dictated by nurse practitioner Mrs. Tiffany La. Patient relates that she became worried because she had some changes to the blisters that it started to the toes of the left foot. Says she's had a prior extensive infection to that site with toe amputation and compartment syndrome she became very worried and presented to the emergency center. With concerns to diabetic foot ulcer she has been admitted. She is being treated currently in the wound healing Center with a total contact cast because of the nonhealing ulceration to her heel and is being evaluated for hyperbaric oxygen therapy. She has her pain is under much significant control. With concerns to worsening of her peripheral vascular disease, and diabetes antibiotic therapy has been initiated a workup is in process as to the significant new lesions to the left foot at the toes. Fortunately does not appear to have acute gangrenous changes at this time. There is no significant drainage. We'll ask the wound healing center to remove her total contact cast tomorrow. He can be reapplied when she can go back to the wound center. A silver alginate dressing can be applied when the cast is removed. The patient continues to have ongoing significant difficulties due to her uncontrolled diabetes, she relates that when she is in the hospital is much easier to control her blood sugar because the food in the hospital is better than she can afford at home. I agree with evaluation, assessment and plan is to give her nurse practitioner Mrs. Tiffany La.
[2017-07-10 00:34] LABS: Glucose,Whole Blood 266 mg/dL (75-99)
[2017-07-10] MEDS: MEROPENEM 1 GM in SODIUM CHLORIDE 0.9% 100 ML IVPB SCH ×2 (05:26→13:12)
[2017-07-10] MEDS: VANCOMYCIN 2,250 MG in SODIUM CHLORIDE 0.9% 500 ML IVPB SCH ×2 (07:04→17:59)
[2017-07-10 07:44] LABS: Glucose,Whole Blood 162 mg/dL (75-99)
[2017-07-10 07:51] LABS: Anisocytosis Slight; Basophils % (A) 1 %; Eosinophils # (A) 0.3 k/uL (0-0.7); Eosinophils % (A) 5 %; HCT 35.9 % (34.0-46.0); HGB 11.4 gm/dL (11.4-16.0); Hypochromasia Slight; Lymphocytes # (A) 1.2 k/uL (1.0-4.8); Lymphocytes % (A) 19 %; MCHC 31.7 g/dL (31.0-37.0); MCV 85.2 fL (80.0-100.0); Mean Platelet Volume 9.1; Monocytes # (A) 0.4 k/uL (0-1.0); Monocytes % (A) 6 %; Neutrophils # (A) 4.4 k/uL (1.3-7.7); Neutrophils % (A) 68 %; Poikilocytosis Slight; RBC 4.21 m/uL (3.80-5.40); RDW 16.2 % (11.5-15.5); WBC 6.5 k/uL (3.8-10.6)
[2017-07-10 07:59] LABS: Platelet Count 87 k/uL (150-450)
[2017-07-10 08:00] LABS: Anion Gap 9 mmol/L; Blood Urea Nitrogen 14 mg/dL (7-17); Calcium 8.9 mg/dL (8.4-10.2); Carbon Dioxide 29 mmol/L (22-30); Chloride 103 mmol/L (98-107); Glucose 172 mg/dL (74-99); Sodium 141 mmol/L (137-145)
[2017-07-10] MEDS: INSULIN ASPART 100 UNIT/ML 1 ML 10 ML VIAL SQ SCH ×3 (08:22→18:01)
[2017-07-10] MEDS: metFORMIN 850 MG TAB PO SCH (08:25)
[2017-07-10] MEDS: LEVOTHYROXINE 88 MCG TAB PO SCH (08:26)
[2017-07-10] MEDS: CYCLOBENZAPRINE 10 MG TAB PO SCH (08:26)
[2017-07-10] MEDS: LORATADINE 10 MG TAB PO SCH (08:26)
[2017-07-10] MEDS: TRIAMTERENE-HCTZ 37.5-25MG 1 EACH TAB PO SCH ×2 (08:26→16:07)
[2017-07-10] MEDS: DOCUSATE 100 MG CAP PO SCH (08:26)
[2017-07-10] MEDS: PREGABALIN 100 MG CAP PO SCH (08:28)
[2017-07-10 08:52] VITALS: BP 144/73; TEMP 98.3
[2017-07-10] MEDS ORDERED: FAMOTIDINE 20 MG TAB PO SCH (09:00)
[2017-07-10] MEDS: VENLAFAXINE HCL ER 150 MG CAP PO SCH (09:40)
[2017-07-10 11:30] LABS: Glucose,Whole Blood 249 mg/dL (75-99)
--- NOTE | 2017-07-10 11:37 | P.DS ---
Providers Date of admission: 07/08/17 18:57 Expected date of discharge: 07/10/17 Attending physician: Lilibeth Seymour Consults: 07/08/17 18:54 Consult Physician Stat Consulting Provider: Chris Nielsen Consult Reason/Comments: Cellulitis, chronic wound Do you want consulting provider notified?: Yes 07/09/17 14:28 Consult Physician Routine Consulting Provider: Nitesh Salgado Consult Reason/Comments: Thrombocytopenia Do you want consulting provider notified?: Yes Primary care physician: Lilibeth Seymour [facility] Course: Discharge diagnosis 1. Left foot second and fourth toe with blisters: X-ray showed no evidence of osteomyelitis. Infectious diseases recommending Ceftin for 7 days 2. Diabetes mellitus type 2 with uncontrolled blood sugars. Blood sugar on admission was in the 400s. This morning blood glucose was in the 70s. Patient has better blood sugars during her hospitalization due to the diabetic diet. We'll resume her home insulin at time of discharge 3. Chronic thrombocytopenia exact etiology unclear. Platelet count was 86. Patient seen by hematology. Their note is pending. We'll review consult note at next office visit 4. Morbid obesity 5. Hyperlipidemia continue Lipitor 6. Hypothyroidism continue Synthroid 7. Chronic diabetic foot ulcer of the right heel with MRSA followed closely by infectious disease and the wound care center. Right foot cast and brace removed. Patient will be discharged and seen at wound care clinic today. At that time she will have another brace placed. Hospital course This is a 61-year-old female with a known past medical history of a chronic diabetic right heel ulcer with MRSA and chronic osteomyelitis. She is followed by Dr. Nielsen in the wound care center. She also has a history of diabetes mellitus type 2, hyperlipidemia, hypothyroidism and morbid obesity. She is also required left foot third toe amputation in the past. Patient presents to the emergency room with skin changes to the second and fourth toe. She reports last week she notices blisters forming on that second and fourth toe. She had where a para of shoes that had rubbed the area. She was seen by Dr. Nielsen on Sunday and told to monitor them. Patient reports that it had worsened. She initially came into the emergency room on Sunday but walked out because of some issues and then returned on Sunday. The blisters are very small black circles on the second and fourth toe. There is about 2 on the second and 3 on the fourth toe. No drainage. In the blisters are currently flat. No pain. However patient has peripheral neuropathy from her diabetes and does not have much feeling in that foot. She has been admitted to the hospital and placed on IV vancomycin and meropenem. Infectious disease consulted. X-ray of the feet bilaterally showed no evidence of osteomyelitis. Patient denies any fever, chills, sweats, nausea or vomiting, bowel movement changes or urinary symptoms. When she presented to the emergency room she was afebrile and white count 6.9. She did have elevated glucose of 402. Patient reports she does not eat right at home due to financial reasons. After being placed on diabetic diet blood sugar this morning was 76. Her morning insulin was held. Patient was placed on IV antibiotics. Blood cultures remain negative. X-ray showed no evidence of osteomyelitis. She was seen evaluated by infectious disease. They had her cast on her right foot removed. And only recommending Ceftin for discharge. They will see her in the wound care center this afternoon to address cast and boot for the right foot. Patient is medically stable for discharge. We'll have her follow up with Dr. Seymour in 1 week. I performed an examination of the patient and discussed their management with the physician Process Owner. I have reviewed the Physician Process Owner's notes and agree with the documented findings and plan of care Patient Condition at Discharge: Stable Plan - Discharge Summary Discharge Rx Participant: No New Discharge Prescriptions: New Cefuroxime Axetil [Ceftin] 500 mg PO BID #14 tab Latanoprost Ophth [Xalatan 0.005%] 1 drops BOTH EYES HS ml Levothyroxine Sodium [Synthroid] 88 mcg PO DAILY@0930 tab Continue Albuterol Inhaler [Ventolin Hfa Inhaler] 1 - 2 puff INHALATION RT-QID PRN PRN Reason: Shortness Of Breath Cyclobenzaprine [Flexeril] 10 mg PO BID@1000,2100 metFORMIN HCL [Glucophage] 850 mg PO BID@1000,2100 Simvastatin [Zocor] 40 mg PO HS@2100 Cetirizine HCl 10 mg PO DAILY@1000 Albuterol Sulfate 2.5 mg INHALATION RT-QID PRN PRN Reason: Shortness Of Breath Aspirin EC [Ecotrin Low Dose] 81 mg PO DAILY@1000 Venlafaxine HCl [Effexor XR] 150 mg PO DAILY@1000 HYDROcodone/APAP 10-325MG [[place] 10-325] 1 tab PO Q8H PRN #42 tab PRN Reason: Pain Nystatin 100,000Unit/gm Cream [Mycostatin Cream] 1 applic TOPICAL TID PRN PRN Reason: Skin Irritation Insulin Glargine,Hum.rec.anlog [Basaglar Kwikpen U-100] 80 unit SQ AC-SUPPER Insulin Glargine,Hum.rec.anlog [Basaglar Kwikpen U-100] 100 unit SQ AC-BRKFST Triamterene-Hctz 37.5-25Mg [Maxzide 37.5-25] 1 tab PO BID@1000,1400 Fexofenadine HCl [Ruby Allergy] 180 mg PO DAILY Glucagon Emergency Kit 1 mg IM ONCE PRN PRN Reason: Blood Sugar - Low INSULIN LISPRO (humaLOG) [humaLOG] 30 units SQ AC-TID Multivitamins, Thera [Multivitamin (formulary)] 1 tab PO DAILY Pregabalin [Lyrica] 75 mg PO BID Discontinued Levothyroxine Sodium [Synthroid] 100 mcg PO DAILY Discharge Medication List Albuterol Inhaler [Ventolin Hfa Inhaler] 1 - 2 puff INHALATION RT-QID PRN [History] Cyclobenzaprine [Flexeril] 10 mg PO BID@999,209902/18/14 [History] Simvastatin [Zocor] 40 mg PO HS@209902/18/14 [History] metFORMIN HCL [Glucophage] 850 mg PO BID@999,209902/18/14 [History] Cetirizine HCl 10 mg PO DAILY@99910/25/14 [History] Albuterol Sulfate 2.5 mg INHALATION RT-QID PRN 12/14/15 [History] Aspirin EC [Ecotrin Low Dose] 81 mg PO DAILY@99906/01/16 [History] Venlafaxine HCl [Effexor XR] 150 mg PO DAILY@99903/26/17 [History] HYDROcodone/APAP 10-325MG [[place] 10-325] 1 tab PO Q8H PRN #42 tab 03/30/17 [Rx] Insulin Glargine,Hum.rec.anlog [Basaglar Kwikpen U-100] 80 unit SQ AC-SUPPER [History] Insulin Glargine,Hum.rec.anlog [Basaglar Kwikpen U-100] 100 unit SQ AC-BRKFST [History] Nystatin 100,000Unit/gm Cream [Mycostatin Cream] 1 applic TOPICAL TID PRN [History] Triamterene-Hctz 37.5-25Mg [Maxzide 37.5-25] 1 tab PO BID@1000,1400 05/17/17 [ History] Fexofenadine HCl [Ruby Allergy] 180 mg PO DAILY 07/09/17 [History] Glucagon Emergency Kit 1 mg IM ONCE PRN 07/09/17 [History] INSULIN LISPRO (humaLOG) [humaLOG] 30 units SQ AC-TID 07/09/17 [History] Multivitamins, Thera [Multivitamin (formulary)] 1 tab PO DAILY 07/09/17 [History ] Pregabalin [Lyrica] 75 mg PO BID 07/09/17 [History] Cefuroxime Axetil [Ceftin] 500 mg PO BID #14 tab 07/10/17 [Rx] Latanoprost Ophth [Xalatan 0.005%] 1 drops BOTH EYES HS ml 07/10/17 [Rx] Levothyroxine Sodium [Synthroid] 88 mcg PO DAILY@0930 tab 07/10/17 [Rx] Follow up Appointment(s)/Referral(s): Lilibeth Seymour MD [Primary Care Provider] - 1 Week Activity/Diet/Wound Care/Special Instructions: Diet: diabetic Activity: as tolerated Follow-up with Dr. Nielsen at the wound care center today Discharge Disposition: HOME SELF-CARE
--- NOTE | 2017-07-10 16:45 | P.CONS ---
History of Present Illness - Reason for Consult Consult date: 07/10/17 Thrombocytopenia Requesting physician: Sofy Wade - History of Present Illness Ms Baker is a pleasant WF, initially seen in consult at [facility] in 02/12. She had come in for a possible TIA, and was noted to have a low plt count in the 60- 27539 range, as well as slightly low Hgb 11-12, and WBC ( 3-4). Review of her labs did show intermittent mild cytopenias going back several months. Her coags were mildly elevated. Her w/u revealed hepatomegaly with appearance c/w fatty infiltration, and splenomegaly. Thus this was felt to be the likely cause. She had slightly abnormal light chain ratio of uncertain significance. She was cleared for discharge and as seen for her 1st OV on 07/30/13. Her plt remained stable at 62. Repeat light chain levels showed mild elevation of both with intact ratio, which is a benign finding. Thus only prn f/u was recommended. She has multiple known co-morbidities including the chronic thrombocytopenia, which decreases and worsens with other acute flairs of infection or chronic disease. Other known past medical history includes osteomyelitis from diabetic unhealing foot ulcer, complicated by MRSA, follows with Dr. Nielsen from Infectious disease. She has a known history of DM2, Hyperlipidemia, Hypothyroidism, and Morbid obesity. She has had third toe of her left foot amputated. She now presents to Emergency department with concerns of skin changes to her 2nd and 4th toes. Blistering and small darkened areas to toes that patient feels are getting worse. Her peripheral neuropathy make it difficult for her to feel pain in the foot. She was admitted to hospital and started on IV vancomycin and meropenem. Dr. nielsen is following. No evidence of osteomyelitis was shown on xrays. She is afebrile. She has no acute complaints during assessment this morning. She denies any bleeding or increased brusing. Her platelet count on admission 90,000. She tends to drop with increased acute inflammatory issues. Review of Systems A 14 point review of systems assessed and completed and all negative except HPI. Past Medical History Past Medical History: Asthma, Cancer, COPD, Diabetes Mellitus, Eye Disorder, Hyperlipidemia, Liver Disease, Musculoskeletal Disorder, Neurologic Disorder, Osteoarthritis (OA), Sleep Apnea/CPAP/BIPAP, Thyroid Disorder Additional Past Medical History / Comment(s): History of osteomyelitis left #3 toe and left calf: 2004. cervical cancer (in remission.) Wound vac. Cirrhosis of the liver r/t diabetes - sees Dr. Barraza History of Any Multi-Drug Resistant Organisms: MRSA Year Discovered:: 03/20/17 MDRO Source:: MRSA HEEL Past Surgical History: Section, Cholecystectomy, Hysterectomy, Orthopedic Surgery, Tonsillectomy, Tubal Ligation Additional Past Surgical History / Comment(s): Cataracts and laser surgery for glaucoma. Multiple I&D to left foot and lower leg. Past Anesthesia/Blood Transfusion Reactions: No Reported Reaction Past Psychological History: Anxiety, Bipolar, Depression Additional Psychological History / Comment(s): Borderline personality Smoking Status: Former smoker Past Alcohol Use History: None Reported Additional Past Alcohol Use History / Comment(s): Patient was a smoker of 2 packs per day for 21 years and quit in 1992. She does use marijuana on occasional basis. She denies any medical marijuana card. She denies any alcohol use or abuse. She is currently living at home and one adult son is living with her. She has been on disability. She is mostly wheelchair bound. Medically disabled. No international travel. No animals in the home. Daughter with her child and child's father live in the basement of the home. Past Drug Use History: Marijuana - Past Family History Father Family Medical History: Congestive Heart Failure (CHF), Coronary Artery Disease (CAD), Myocardial Infarction ([place]) Mother Family Medical History: Coronary Artery Disease (CAD), CVA/TIA, Dementia, Myocardial Infarction (NM) Medications and Allergies Home Medications Medication Instructions Recorded Confirmed Type Albuterol Inhaler [Ventolin Hfa 1 - 2 puff INHALATION RT-QID PRN 02/18/14 History Inhaler] Cyclobenzaprine [Flexeril] 10 mg PO BID@1000,209902/18/14 07/08/17 History Simvastatin [Zocor] 40 mg PO HS@209902/18/14 07/08/17 History metFORMIN HCL [Glucophage] 850 mg PO BID@1000,209902/18/14 07/08/17 History Cetirizine HCl 10 mg PO DAILY@1000 10/25/14 07/08/17 History Albuterol Sulfate 2.5 mg INHALATION RT-QID PRN 12/14/15 07/08/17 History Aspirin EC [Ecotrin Low Dose] 81 mg PO DAILY@1000 06/01/16 07/08/17 History Venlafaxine HCl [Effexor XR] 150 mg PO DAILY@1000 03/26/17 07/08/17 History HYDROcodone/APAP 10-325MG [Sanders 1 tab PO Q8H PRN #42 tab 03/30/17 07/08/17 Rx 10-325] Insulin Glargine,Hum.rec.anlog 80 unit SQ AC-SUPPER 05/17/17 07/08/17 History [Basaglar Kwikpen U-100] Insulin Glargine,Hum.rec.anlog 100 unit SQ AC-BRKFST 05/17/17 07/08/17 History [Basaglar Kwikpen U-100] Nystatin 100,000Unit/gm Cream 1 applic TOPICAL TID PRN 05/17/17 07/08/17 History [Mycostatin Cream] Triamterene-Hctz 37.5-25Mg 1 tab PO BID@1000,1400 05/17/17 07/08/17 History [Maxzide 37.5-25] Fexofenadine HCl [Ruby Allergy] 180 mg PO DAILY 07/09/17 07/09/17 History Glucagon Emergency Kit 1 mg IM ONCE PRN 07/09/17 07/09/17 History INSULIN LISPRO (humaLOG) [humaLOG] 30 units SQ AC-TID 07/09/17 07/09/17 History Multivitamins, Thera [Multivitamin 1 tab PO DAILY 07/09/17 07/09/17 History (formulary)] Pregabalin [Lyrica] 75 mg PO BID 07/09/17 07/09/17 History Cefuroxime Axetil [Ceftin] 500 mg PO BID #14 tab 07/10/17 Rx Latanoprost Ophth [Xalatan 0.005%] 1 drops BOTH EYES HS ml 07/10/17 Rx Levothyroxine Sodium [Synthroid] 88 mcg PO DAILY@0930 tab 07/10/17 Rx Allergies Allergy/AdvReac Type Severity Reaction Status Date / Time Penicillins Allergy Anaphylaxis Verified 07/09/17 09:12 Physical Exam Vitals: Vital Signs Temp Pulse Resp BP Pulse Ox 07/10/17 08:00 78 18 07/10/17 07:00 98.3 F 78 18 144/73 99 07/09/17 21:37 98 F 78 18 156/72 96 Intake and Output 07/10/17 07/10/17 07/10/17 06:59 14:59 22:59 Intake Total 2039 Balance 2039 Intake: Intake, IV Titration 600 Amount Meropenem 1 gm In Sodium 100 Chloride 0.9% 100 ml @ 100 mls/hr IVPB Q8H JACKLYN Rx#:[id number] Vancomycin 2,250 mg In 500 Sodium Chloride 0.9% 500 ml @ 167 mls/hr IVPB Q12H JACKLYN Rx#:[id number] Oral 1440 Other: Voiding Method Toilet Toilet # Voids 2 4 - Constitutional General appearance: cooperative, no acute distress - EENT Eyes: EOMI, poor dentition, normal appearance ENT: NA/AT, normal oropharynx - Neck Supple, Trachea Midline Neck: normal ROM - Respiratory Respiratory: bilateral: CTA (No increased Effort) - Cardiovascular Rhythm: regular Heart sounds: normal: S1, S2 - Gastrointestinal General gastrointestinal: normal bowel sounds, soft - Integumentary Flat blistering on 2nd and 4th toe with darkening and rigid edging. Integumentary: cellulitis, ulcer - Neurologic No focal defects Neurologic: CNII-XII intact - Musculoskeletal Musculoskeletal: generalized weakness - Psychiatric Psychiatric: A&O x's 3, appropriate affect, intact judgment & insight Results CBC & Chem 7: 07/10/17 07:16 07/10/17 07:16 Labs: Abnormal Lab Results - Last 24 Hours (Table) 07/09/17 07/09/17 07/10/17 Range/Units 17:14 20:32 00:32 RDW (11.5-15.5) % Plt Count (150-450) k/uL Glucose (74-99) mg/dL POC Glucose (mg/dL) 259 H 305 H 266 H (75-99) mg/dL 07/10/17 07/10/17 07/10/17 Range/Units 07:16 07:16 07:30 RDW 16.2 H (11.5-15.5) % Plt Count 87 L (150-450) k/uL Glucose 172 H (74-99) mg/dL POC Glucose (mg/dL) 162 H (75-99) mg/dL 07/10/17 Range/Units 11:26 RDW (11.5-15.5) % Plt Count (150-450) k/uL Glucose (74-99) mg/dL POC Glucose (mg/dL) 249 H (75-99) mg/dL Microbiology - Last 24 Hours (Table) 07/08/17 17:25 Blood Culture - Preliminary Blood No Growth after 24 hours Assessment and Plan (1) At risk for readmission to hospital Current Visit: Yes Status: Acute Code(s): Z91.89 - OTH PERSONAL RISK FACTORS , NOT ELSEWHERE CLASSIFIED SNOMED Code(s): 0035008847699 (2) Diabetes mellitus Current Visit: Yes Status: Acute Code(s): E11.9 - TYPE 2 DIABETES MELLITUS WITHOUT COMPLICATIONS SNOMED Code(s): 73999772 (3) Diabetic ulcer of right foot associated with diabetes mellitus due to underlying condition, with necrosis of bone Current Visit: No Status: Acute Code(s): E08.621 - DIABETES MELLITUS DUE TO UNDERLYING CONDITION W FOOT ULCER; L97.514 - NON-PRS CHRONIC ULCER OTH PRT RIGHT FOOT W NECROSIS OF BONE SNOMED Code(s): 535989785 (4) Hyperglycemia Current Visit: No Status: Acute Code(s): R73.9 - HYPERGLYCEMIA, UNSPECIFIED SNOMED Code(s): 53900851 (5) MRSA cellulitis of right foot Current Visit: No Status: Acute Code(s): L03.115 - CELLULITIS OF RIGHT LOWER LIMB; B95.62 - METHICILLIN RESIS STAPH INFCT CAUSING DISEASES CL[facility]SD [facility] SNOMED Code(s): 380755109 (6) Thrombocytopenia Current Visit: No Status: Acute Code(s): D69.6 - THROMBOCYTOPENIA, UNSPECIFIED SNOMED Code(s): 718384494 (7) Cirrhosis of liver Current Visit: No Status: Chronic Code(s): K74.60 - UNSPECIFIED CIRRHOSIS OF LIVER SNOMED Code(s): 94007234 (8) Morbid obesity with BMI of 50.0-59.9, adult Current Visit: No Status: Chronic Code(s): E66.01 - MORBID (SEVERE) OBESITY DUE TO EXCESS CALORIES; Z68.43 - BODY MASS INDEX (BMI) 50-59.9 , ADULT SNOMED Code(s): 607210973 (9) Splenomegaly Current Visit: No Status: Chronic Code(s): R16.1 - SPLENOMEGALY, NOT ELSEWHERE CLASSIFIED SNOMED Code(s): 22506807 Plan: Assessment and Recommendations: 1. Thrombocytopenia - Chronic with fluctuations secondary to multiple co- morbidies including liver disease, splenomegaly, worsening with active infection and need for antibiotics. - Monitor daily CBC and platelet Count - If active bleeding keep platlet count near 50, otherwise monitor and no transfusions needed unless less than 10 2. Foot non-healing ulcer - Chronic progressed - Followed by Dr. Nielsen and abx managed ID 3. Liver disease - Known - Check B12, Folate, and MMA 4. Follow-up with Dr. Salgado as outpatient. Physcian Attesation: I have completed the full history and physical of this patient and discussed and agree with dictation by Cony Rollins NP, Dictated as a scribe
[2017-07-10 17:51] LABS: Glucose,Whole Blood 281 mg/dL (75-99)
[2017-07-11] MEDS ORDERED: VANCOMYCIN TROUGH DUE 1 EACH MISC MISCELLANE ONE (05:00)
== END 2017-07-10 18:30 | disposition home or self-care (01) ==
LOC: EC 16:26 → 5MS5E 18:57 → INTOOBSV 18:57 → 5MS5E 07-10 08:57 → UNDODISIN 07-10 18:30
PROVIDERS: ADMIT Internal Medicine; ATTEND Internal Medicine
DX: E11.621 Type 2 diabetes mellitus with foot ulcer (principal); E11.628 Type 2 diabetes mellitus with other skin complications; L97.529 Non-pressure chronic ulcer of other part of left foot with unspecified severity; L03.032 Cellulitis of left toe; D69.6 Thrombocytopenia, unspecified; E66.01 Morbid (severe) obesity due to excess calories; Z68.43 Body mass index [BMI] 50.0-59.9, adult; E11.65 Type 2 diabetes mellitus with hyperglycemia; E78.5 Hyperlipidemia, unspecified; E03.9 Hypothyroidism, unspecified; Z79.890 Hormone replacement therapy; B95.62 Methicillin resistant Staphylococcus aureus infection as the cause of diseases classified elsewhere; E11.42 Type 2 diabetes mellitus with diabetic polyneuropathy; F12.90 Cannabis use, unspecified, uncomplicated; E11.69 Type 2 diabetes mellitus with other specified complication; K74.60 Unspecified cirrhosis of liver; F41.9 Anxiety disorder, unspecified; F60.3 Borderline personality disorder; F31.9 Bipolar disorder, unspecified; K76.9 Liver disease, unspecified; G47.30 Sleep apnea, unspecified; J44.9 Chronic obstructive pulmonary disease, unspecified; M19.90 Unspecified osteoarthritis, unspecified site; Z85.41 Personal history of malignant neoplasm of cervix uteri; Z86.14 Personal history of Methicillin resistant Staphylococcus aureus infection; Z87.891 Personal history of nicotine dependence; Z99.3 Dependence on wheelchair; Z90.710 Acquired absence of both cervix and uterus; Z79.4 Long term (current) use of insulin; Z98.51 Tubal ligation status; Z82.49 Family history of ischemic heart disease and other diseases of the circulatory system; Z89.429 Acquired absence of other toe(s), unspecified side; Z88.0 Allergy status to penicillin; Z99.89 Dependence on other enabling machines and devices; Z79.899 Other long term (current) drug therapy; Z59.8 Other problems related to housing and economic circumstances; L03.115 Cellulitis of right lower limb; L97.519 Non-pressure chronic ulcer of other part of right foot with unspecified severity
CPT/HCPCS: 96361; 96366 ×3; 96367; 96365; 99284; 36415; 83921; 80053 ×2; 80048; 82607; 82746; 85025 ×3; 87040; 83036; 73630; G0378 ×3; J3370 ×3; J2185 ×3

== ENCOUNTER → 2017-09-27 | Outpatient (CLI) | payer OTHER ==
--- NOTE | 2017-10-01 10:06 | MM ---
Reason for exam: screening (asymptomatic). Last mammogram was performed 1 year and 10 months ago. History: Patient is postmenopausal and history of other cancer. Family history of breast cancer in paternal grandmother at age 50. Physical Findings: A clinical breast exam by your physician is recommended on an annual basis and results should be correlated with mammographic findings. MG 3D Screening Mammo W/Cad Bilateral CC and MLO view(s) were taken. Prior study comparison: December 09, 2015, bilateral MG screening mammo w CAD. The breast tissue is almost entirely fat. No significant changes when compared with prior studies. ASSESSMENT: Negative, BI-RAD 1 RECOMMENDATION: Routine screening mammogram of both breasts in 1 year.
== END | disposition home or self-care (01) ==
LOC: RADMAMWWP 09:40
PROVIDERS: ATTEND Internal Medicine
DX: Z12.31 Encounter for screening mammogram for malignant neoplasm of breast (principal)
CPT/HCPCS: 77063; 77067

== ENCOUNTER 2017-10-07 19:06 | Inpatient (IN) | payer OTHER ==
[2017-10-07] MEDS ORDERED: VANCOMYCIN IV PER PHARMACY 1 EACH MISC MISCELLANE PRN (21:17)
[2017-10-07] MEDS ORDERED: SODIUM CHLORIDE 0.9% 1,000 ML IV STA (21:17)
[2017-10-07] MEDS ORDERED: VANCOMYCIN 2,250 MG in SODIUM CHLORIDE 0.9% 500 ML IVPB STA (21:29)
--- NOTE | 2017-10-07 21:39 | ED ---
Skin/Abscess/FB HPI - General Chief complaint: Skin/Abscess/Foreign Body Stated complaint: wound Time Seen by Provider: 10/07/17 20:19 Source: patient, RN notes reviewed Mode of arrival: wheelchair Limitations: no limitations - History of Present Illness Initial comments: This is a 61-year-old female who presents to the emergency department with chief complaint of left calf pain and redness. Patient states that she does have diabetic neuropathy and has chronic wounds to her right foot. She states that she is managed by Dr. Nielsen. She states that over the past week she has noticed swelling, redness, tenderness and warmth to her left lower extremity. She states that she has had a be admitted multiple times in the past for IV antibiotics for cellulitis. Patient also reports that she currently does have bedbugs in her home. She denies any fevers or chills, chest pain or shortness of breath, abdominal pain, nausea or vomiting. - Related Data Home Medications Medication Instructions Recorded Confirmed Albuterol Inhaler [Ventolin Hfa 1 - 2 puff INHALATION RT-QID PRN 02/18/14 Inhaler] Cyclobenzaprine [Flexeril] 10 mg PO BID@1000,209902/18/14 10/02/17 Simvastatin [Zocor] 40 mg PO HS@209902/18/14 10/02/17 metFORMIN HCL [Glucophage] 850 mg PO BID@1000,209902/18/14 10/02/17 Cetirizine HCl 10 mg PO DAILY@99910/25/14 10/02/17 Albuterol Sulfate 2.5 mg INHALATION RT-QID PRN 12/14/15 10/02/17 Aspirin EC [Ecotrin Low Dose] 81 mg PO DAILY@1000 06/01/16 10/02/17 Venlafaxine HCl [Effexor XR] 150 mg PO DAILY@99903/26/17 10/02/17 Insulin Glargine,Hum.rec.anlog 80 unit SQ AC-SUPPER 05/17/17 10/02/17 [Basaglar Kwikpen U-100] Insulin Glargine,Hum.rec.anlog 100 unit SQ AC-BRKFST 05/17/17 10/02/17 [Basaglar Kwikpen U-100] Nystatin 100,000Unit/gm Cream 1 applic TOPICAL TID PRN 05/17/17 10/02/17 [Mycostatin Cream] Triamterene-Hctz 37.5-25Mg 1 tab PO BID@1000,1400 05/17/17 10/02/17 [Maxzide 37.5-25] Fexofenadine HCl [Ruby Allergy] 180 mg PO DAILY 07/09/17 10/02/17 Glucagon Emergency Kit 1 mg IM ONCE PRN 07/09/17 10/02/17 INSULIN LISPRO (humaLOG) [humaLOG] 30 units SQ AC-TID 07/09/17 10/02/17 Multivitamins, Thera [Multivitamin 1 tab PO DAILY 07/09/17 10/02/17 (formulary)] Pregabalin [Lyrica] 75 mg PO BID 07/09/17 10/02/17 Previous Rx's Medication Instructions Recorded HYDROcodone/APAP 10-325MG [Convoy 1 tab PO Q8H PRN #42 tab 03/30/17 10-325] Latanoprost Ophth [Xalatan 0.005%] 1 drops BOTH EYES HS ml 07/10/17 Levothyroxine Sodium [Synthroid] 88 mcg PO DAILY@0930 tab 07/10/17 Allergies Allergy/AdvReac Type Severity Reaction Status Date / Time Penicillins Allergy Anaphylaxis Verified 10/07/17 20:41 Review of Systems ROS Statement: Those systems with pertinent positive or pertinent negative responses have been documented in the HPI. ROS Other: All systems not noted in ROS Statement are negative. Past Medical History Past Medical History: Asthma, Cancer, COPD, Diabetes Mellitus, Eye Disorder, Hyperlipidemia, Liver Disease, Musculoskeletal Disorder, Neurologic Disorder, Osteoarthritis (OA), Sleep Apnea/CPAP/BIPAP, Thyroid Disorder Additional Past Medical History / Comment(s): History of osteomyelitis left #3 toe and left calf: 2004. cervical cancer (in remission.) Wound vac. Cirrhosis of the liver r/t diabetes - sees Dr. Barraza History of Any Multi-Drug Resistant Organisms: MRSA Date of last positivie culture/infection: 03/20/17 MDRO Source:: MRSA HEEL Past Surgical History: Section, Cholecystectomy, Hysterectomy, Orthopedic Surgery, Tonsillectomy, Tubal Ligation Additional Past Surgical History / Comment(s): Cataracts and laser surgery for glaucoma. Multiple I&D to left foot and lower leg. Past Anesthesia/Blood Transfusion Reactions: No Reported Reaction Past Psychological History: Anxiety, Bipolar, Depression Smoking Status: Former smoker Past Alcohol Use History: None Reported Past Drug Use History: Marijuana - Past Family History Father Family Medical History: Congestive Heart Failure (CHF), Coronary Artery Disease (CAD), Myocardial Infarction ([place]) Mother Family Medical History: Coronary Artery Disease (CAD), CVA/TIA, Dementia, Myocardial Infarction ([place]) General Exam - General Exam Comments Initial Comments: General: Awake and alert, well-developed; in no apparent distress. HEENT: Head atraumatic, normocephalic. Pupils are equal, round and reactive to light. Extraocular movements intact. Oropharynx moist without erythema or exudate. Neck: Supple. Normal ROM. Cardiovascular: Regular rate and rhythm. No murmurs, rubs or gallops. Chest symmetrical. Respiratory: Lungs clear to auscultation bilaterally. No wheezes, rales or rhonchi. Normal respiratory effort with no use of accessory muscles. Musculoskeletal: Normal range of motion of bilateral upper and lower extremities. There is a boot present on the right foot. Skin: Mild erythema, swelling and warmth to the left lower calf. There is generalized tenderness on palpation. Sensation is intact. Pedal pulses are palpable. Neurological: Alert and oriented x3. CN II-XII grossly intact. Speech is fluent and answers are appropriate. No focal neuro deficits. Psychiatric: Normal mood and affect. No overt signs of depression or anxiety noted. Limitations: no limitations Course Vital Signs 10/07/17 20:39 Temperature 98.5 F Pulse Rate 77 Respiratory 20 Rate Blood Pressure 170/72 O2 Sat by Pulse 97 Oximetry Medical Decision Making - Medical Decision Making This is a 61-year-old female presents to the emergency department with chief complaint of left lower extremity pain and swelling. Patient does have chronic diabetic neuropathy and is managed for chronic lower cavity wounds by Dr. Nielsen. Patient states that over the past week she has noticed redness and swelling to the left lower extremity. This area is mildly erythematous, tender , warm and swollen. Patient is neurovascularly intact. Patient reports having to be admitted multiple times in the past for IV antibiotics for treatment of cellulitis. This case was discussed with attending physician, Dr. Woodruff who also evaluated the patient. Patient will be admitted to Dr. Seymour for IV antibiotics. Blood cultures are pending. Patient started on vancomycin. Vital signs are stable. Patient is in agreement for admission. Disposition Clinical Impression: Cellulitis Disposition: ADMITTED IP TO THIS HOSP Condition: Stable Is patient prescribed a controlled substance at d/c from ED?: No Referrals: Lilibeth Seymour MD [Primary Care Provider] - 1-2 days Time of Disposition: 22:10
[2017-10-07] MEDS ORDERED: ONDANSETRON 4 MG/2 ML VIAL IVP PRN (22:10)
[2017-10-07] MEDS ORDERED: KETOROLAC 30 MG/ML 1 ML VIAL IVP PRN (22:10)
[2017-10-07] MEDS ORDERED: NALOXONE 0.4 MG/ML 1 ML VIAL IV PRN (22:10)
[2017-10-07] MEDS ORDERED: ACETAMINOPHEN TAB 325 MG TAB PO PRN (22:10)
[2017-10-07 22:46] LABS: Albumin 3.7 g/dL (3.5-5.0); Anion Gap 11 mmol/L; Carbon Dioxide 24 mmol/L (22-30); Chloride 104 mmol/L (98-107); Glucose 448 mg/dL (74-99); Sodium 139 mmol/L (137-145); Total Bilirubin 0.8 mg/dL (0.2-1.3); Total Protein 7.3 g/dL (6.3-8.2)
[2017-10-07 22:48] LABS: ALT 27 U/L (9-52); AST 36 U/L (14-36); Alkaline Phosphatase 77 U/L (38-126); Anisocytosis Slight; Basophils % (A) 1 %; Blood Urea Nitrogen 15 mg/dL (7-17); Eosinophils # (A) 0.3 k/uL (0-0.7); Eosinophils % (A) 5 %; HCT 37.8 % (34.0-46.0); HGB 12.6 gm/dL (11.4-16.0); Hypochromasia Slight; Lymphocytes % (A) 18 %; MCH 29.3 pg (25.0-35.0); MCHC 33.4 g/dL (31.0-37.0); MCV 87.8 fL (80.0-100.0); Mean Platelet Volume 7.7; Monocytes # (A) 0.3 k/uL (0-1.0); Monocytes % (A) 5 %; Neutrophils % (A) 71 %; Potassium 4.9 mmol/L (3.5-5.1); RDW 16.7 % (11.5-15.5); WBC 5.7 k/uL (3.8-10.6)
[2017-10-07 22:49] LABS: Platelet Count 83 k/uL (150-450)
[2017-10-07 23:39] LABS: Glucose,Whole Blood 362 mg/dL (75-99)
[2017-10-08] MEDS: INSULIN ASPART 100 UNIT/ML 1 ML 10 ML VIAL SQ SCH ×9 (02:25→22:04)
[2017-10-08 02:49] LABS: Glucose,Whole Blood 330 mg/dL (75-99)
[2017-10-08 04:28] LABS: Glucose,Whole Blood 379 mg/dL (75-99)
[2017-10-08 07:15] LABS: Glucose,Whole Blood 290 mg/dL (75-99)
[2017-10-08] MEDS: NYSTATIN 100,000 UNIT/GM POWD 15 GM TOPICAL SCH ×2 (08:27→22:36)
[2017-10-08 09:18] LABS: Glucose,Whole Blood 346 mg/dL (75-99)
[2017-10-08] MEDS ORDERED: IBUPROFEN 800 MG TAB PO PRN (09:19)
[2017-10-08] MEDS ORDERED: ALBUTEROL NEBULIZED 2.5 MG/3 ML INHALATION PRN ×2 (09:19)
[2017-10-08 09:50] LABS: Anisocytosis Slight; Basophils % (A) 1 %; Eosinophils # (A) 0.2 k/uL (0-0.7); Eosinophils % (A) 4 %; HCT 32.8 % (34.0-46.0); HGB 10.8 gm/dL (11.4-16.0); Hypochromasia Slight; Lymphocytes # (A) 0.9 k/uL (1.0-4.8); Lymphocytes % (A) 17 %; MCH 28.7 pg (25.0-35.0); MCV 87.1 fL (80.0-100.0); Mean Platelet Volume 8.1; Monocytes # (A) 0.3 k/uL (0-1.0); Monocytes % (A) 5 %; Neutrophils # (A) 3.6 k/uL (1.3-7.7); Neutrophils % (A) 71 %; Poikilocytosis Slight; RBC 3.77 m/uL (3.80-5.40); RDW 16.4 % (11.5-15.5)
[2017-10-08 09:51] LABS: Platelet Count 66 k/uL (150-450)
[2017-10-08 09:57] LABS: Chloride 107 mmol/L (98-107); Glucose 336 mg/dL (74-99); Potassium 4.2 mmol/L (3.5-5.1); Sodium 139 mmol/L (137-145)
[2017-10-08 09:58] LABS: ALT 30 U/L (9-52); AST 20 U/L (14-36); Albumin 2.8 g/dL (3.5-5.0); Alkaline Phosphatase 68 U/L (38-126); Anion Gap 9 mmol/L; Blood Urea Nitrogen 13 mg/dL (7-17); Calcium 8.4 mg/dL (8.4-10.2); Carbon Dioxide 23 mmol/L (22-30); Total Bilirubin 0.6 mg/dL (0.2-1.3); Total Protein 5.9 g/dL (6.3-8.2)
[2017-10-08] MEDS ORDERED: VANCOMYCIN 2,250 MG in SODIUM CHLORIDE 0.9% 500 ML IVPB SCH (10:00)
[2017-10-08] MEDS ORDERED: ASPIRIN 81 MG PO SCH (10:00)
--- NOTE | 2017-10-08 10:35 | P.HPIM ---
History of Present Illness H&P Date: 10/08/17 Chief Complaint: Lower left extremity cellulitis This is a 61-year-old female who presented to the emergency department with chief complaint of left calf pain and redness that has gotten worse over the past few days. She has a significant history of wounds on her right heel with MRSA and chronic osteomyletis that is managed by Dr. Nielsen and a history for reoccurring cellulites in both her right and left calves. She states she has had to be admitted multiple times in the past for IV antibiotics for this problem. Other significant history includes diabetes, diabetic neuropathy, chronic wounds to right foot, asthma, cancer, COPD, morbid obesity, hyperlipidemia, liver disease, musculoskeletal disorder, osteoarthritis, sleep apnea and thyroid disorder. Per nursing staff patient came in with bed bugs that were on the boot that she had on her right foot. Patient denies chest pain or shortness of breath at this time. Dr. Nielsen has been consulted. Blood culture has been ordered and is currently pending. Home medications reviewed. Review of Systems Please refer to HPI otherwise unremarkable Past Medical History Past Medical History: Asthma, Cancer, COPD, Diabetes Mellitus, Eye Disorder, Hyperlipidemia, Liver Disease, Musculoskeletal Disorder, Neurologic Disorder, Osteoarthritis (OA), Sleep Apnea/CPAP/BIPAP, Thyroid Disorder Additional Past Medical History / Comment(s): History of osteomyelitis left #3 toe and left calf: 2004. cervical cancer (in remission.) Wound vac. Cirrhosis of the liver r/t diabetes - sees Dr. Barraza History of Any Multi-Drug Resistant Organisms: MRSA Date of last positivie culture/infection: 03/20/17 MDRO Source:: MRSA HEEL Past Surgical History: Section, Cholecystectomy, Hysterectomy, Orthopedic Surgery, Tonsillectomy, Tubal Ligation Additional Past Surgical History / Comment(s): Cataracts and laser surgery for glaucoma. Multiple I&D to left foot and lower leg. Past Anesthesia/Blood Transfusion Reactions: No Reported Reaction Past Psychological History: Anxiety, Bipolar, Depression Additional Psychological History / Comment(s): Borderline personality Smoking Status: Former smoker Past Alcohol Use History: None Reported Additional Past Alcohol Use History / Comment(s): Patient was a smoker of 2 packs per day for 21 years and quit in 1992. She does use marijuana on occasional basis. She denies any medical marijuana card. She denies any alcohol use or abuse. She is currently living at home and one adult son is living with her. She has been on disability. She is mostly wheelchair bound. Medically disabled. No international travel. No animals in the home. Daughter with her child and child's father live in the basement of the home. Past Drug Use History: Marijuana - Past Family History Father Family Medical History: Congestive Heart Failure (CHF), Coronary Artery Disease (CAD), Myocardial Infarction (NH) Mother Family Medical History: Coronary Artery Disease (CAD), CVA/TIA, Dementia, Myocardial Infarction (NH) Medications and Allergies Home Medications Medication Instructions Recorded Confirmed Type Albuterol Inhaler [Ventolin Hfa 1 - 2 puff INHALATION RT-QID PRN 02/18/14 History Inhaler] Cyclobenzaprine [Flexeril] 10 mg PO BID@999,209902/18/14 10/08/17 History Simvastatin [Zocor] 40 mg PO HS@209902/18/14 10/08/17 History metFORMIN HCL [Glucophage] 850 mg PO BID@999,209902/18/14 10/08/17 History Cetirizine HCl 10 mg PO HS 10/25/14 10/08/17 History Albuterol Sulfate 2.5 mg INHALATION RT-QID PRN 12/14/15 10/08/17 History Aspirin EC [Ecotrin Low Dose] 81 mg PO DAILY@1000 06/01/16 10/08/17 History Venlafaxine HCl [Effexor XR] 150 mg PO DAILY@1000 03/26/17 10/08/17 History HYDROcodone/APAP 10-325MG [Vinton 1 tab PO Q8H PRN #42 tab 03/30/17 10/08/17 Rx 10-325] Insulin Glargine,Hum.rec.anlog 80 unit SQ AC-SUPPER 05/17/17 10/08/17 History [Basaglar Kwikpen U-100] Insulin Glargine,Hum.rec.anlog 100 unit SQ AC-BRKFST 05/17/17 10/08/17 History [Basaglar Kwikpen U-100] Nystatin 100,000Unit/gm Cream 1 applic TOPICAL BID 05/17/17 10/08/17 History [Mycostatin Cream] Triamterene-Hctz 37.5-25Mg 1 tab PO BID@1000,1400 05/17/17 10/08/17 History [Maxzide 37.5-25] Fexofenadine HCl [Ruby Allergy] 180 mg PO DAILY 07/09/17 10/08/17 History Glucagon Emergency Kit 1 mg IM ONCE PRN 07/09/17 10/08/17 History INSULIN LISPRO (humaLOG) [humaLOG] 30 units SQ AC-TID 07/09/17 10/08/17 History Pregabalin [Lyrica] 75 mg PO BID 07/09/17 10/08/17 History Latanoprost Ophth [Xalatan 0.005%] 1 drops BOTH EYES HS ml 07/10/17 10/08/17 Rx Diclofenac Sodium [Voltaren Gel] 2 gram TOPICAL TID 10/08/17 10/08/17 History Ibuprofen [Motrin] 800 mg PO BID 10/08/17 10/08/17 History Levothyroxine Sodium [Synthroid] 100 mcg PO DAILY 10/08/17 10/08/17 History Multivit-Min/FA/Lycopen/Lutein 1 tab PO DAILY 10/08/17 10/08/17 History [Centrum Silver Tablet] Triamcinolone 0.5% Cream [Kenalog 1 applic TOPICAL DAILY 10/08/17 10/08/17 History 0.5% Cream] Allergies Allergy/AdvReac Type Severity Reaction Status Date / Time Penicillins Allergy Anaphylaxis Verified 10/07/17 20:41 Physical Exam Vitals: Vital Signs Temp Pulse Pulse Resp BP BP Pulse Ox 10/08/17 07:05 97.2 F L 68 16 116/53 95 10/08/17 03:12 98.1 F 73 20 138/62 100 10/08/17 00:00 98.6 F 78 20 166/80 98 10/07/17 20:39 98.5 F 77 20 170/72 97 Intake and Output 10/07/17 10/08/17 10/08/17 22:59 06:59 14:59 Intake Total 300 Balance 300 Intake: Oral 300 Other: Voiding Method Toilet # Voids 1 Weight 152.407 kg 157.397 kg Head normocephalic Neck supple Lungs clear to auscultation bilaterally no wheezing or crackles Heart regular rate and rhythm S1-S2, no rub or gallop Abdomen is soft nontender nondistended positive bowel sounds no hepatosplenomegaly Extremities left lower extremity slightly edematous and erythema. 2 healing ULCERS on top of left second and third toes. Heel open wound, no signs erythema or drainage Neuro alert and orientated to 3 Results CBC & Chem 7: 10/08/17 08:54 10/08/17 08:54 Labs: Abnormal Lab Results - Last 24 Hours (Table) 10/07/17 10/07/17 10/07/17 Range/Units 22:19 22:19 23:36 RBC (3.80-5.40) m/uL Hgb (11.4-16.0) gm/dL Hct (34.0-46.0) % RDW 16.7 H (11.5-15.5) % Plt Count 83 L (150-450) k/uL Lymphocytes # (1.0-4.8) k/uL Glucose 448 H (74-99) mg/dL POC Glucose (mg/dL) 362 H (75-99) mg/dL Total Protein (6.3-8.2) g/dL Albumin (3.5-5.0) g/dL 10/08/17 10/08/17 10/08/17 Range/Units 02:41 04:05 07:07 RBC (3.80-5.40) m/uL Hgb (11.4-16.0) gm/dL Hct (34.0-46.0) % RDW (11.5-15.5) % Plt Count (150-450) k/uL Lymphocytes # (1.0-4.8) k/uL Glucose (74-99) mg/dL POC Glucose (mg/dL) 330 H 379 H 290 H (75-99) mg/dL Total Protein (6.3-8.2) g/dL Albumin (3.5-5.0) g/dL 10/08/17 10/08/17 10/08/17 Range/Units 08:54 08:54 09:15 RBC 3.77 L (3.80-5.40) m/uL Hgb 10.8 L (11.4-16.0) gm/dL Hct 32.8 L (34.0-46.0) % RDW 16.4 H (11.5-15.5) % Plt Count 66 L (150-450) k/uL Lymphocytes # 0.9 L (1.0-4.8) k/uL Glucose 336 H (74-99) mg/dL POC Glucose (mg/dL) 346 H (75-99) mg/dL Total Protein 5.9 L (6.3-8.2) g/dL Albumin 2.8 L (3.5-5.0) g/dL Thrombosis Risk Factor Assmnt - Choose All That Apply Each Factor Represents 1 point: Age 41-60 years, Obesity (BMI >25), Swollen legs (current) Thrombosis Risk Factor Assessment Total Risk Factor Score: 3 Thrombosis Risk Factor Assessment Level: Moderate Risk Assessment and Plan Assessment: 1. Left lower extremity cellulitis. Dr. Nielsen for infectious disease has been consulted. IV Vancomycin for antibiotics have been ordered. Blood culture ordered. 2. Diabetes mellitus type 2 with uncontrolled blood sugars. Sugars have been consistently in the 300s since admission. Patient states she takes 100 units of long-acting insulin in the morning and 80 units long-acting insulin at night +30 units of Humalog with meals. Medical record reviewed with pharmacy and patient. Home medications ordered. 3. Chronic thrombocytopenia . Platelet count 66. Previous admission Dr. bowling consulted for hematology for thrombocytopenia. Per hematology thrombocytopenia related secondary to multiple comorbidities including liver disease, splenomegaly, worsening with active infection and need for antibiotics. 4. Morbid obesity 5. Hyperlipidemia continue Lipitor 6. Hypothyroidism continue Synthroid 7. Chronic diabetic foot ulcer of the right heel. Followed closely by infectious disease outpatient at the wound care center 8. History of bipolar depression. Home medications of Effexor and Lyrica ordered. DVT prophyalxis currently on hold due Thrombocytompenia, GI prophylaxis Pepcid. Time with Patient: Greater than 30 (Greater than 60% of the total time spent in counseling and coordination of care.I performed an examination of the patient and discussed their management with the Nurse Practitioner. I have reviewed the Nurse Practitioner's notes and agree with the documented findings and plan of care)
[2017-10-08] MEDS: CYCLOBENZAPRINE 10 MG TAB PO SCH ×2 (11:10→22:03)
[2017-10-08] MEDS: metFORMIN 850 MG TAB PO SCH ×2 (11:11→22:07)
[2017-10-08] MEDS: TRIAMTERENE-HCTZ 37.5-25MG 1 EACH TAB PO SCH ×2 (11:11→15:43)
[2017-10-08] MEDS: MULTIVITAMINS, THERA 1 EACH TAB PO SCH (11:12)
[2017-10-08] MEDS: VENLAFAXINE HCL ER 150 MG CAP PO SCH (11:12)
[2017-10-08] MEDS: PREGABALIN 75 MG CAP PO SCH ×2 (11:18→22:06)
[2017-10-08 11:49] LABS: Glucose,Whole Blood 304 mg/dL (75-99)
[2017-10-08] MEDS: HYDROcodone/APAP 10-325MG 1 EACH TAB PO PRN ×2 (12:31→22:35)
[2017-10-08 12:37] LABS: Glucose,Whole Blood 279 mg/dL (75-99)
[2017-10-08 15:49] VITALS: BMI 51.2
[2017-10-08 17:09] LABS: Glucose,Whole Blood 226 mg/dL (75-99)
[2017-10-08] MEDS: INSULIN DETEMIR 100 UNIT/ML 10 ML VIAL SQ SCH (18:09)
--- NOTE | 2017-10-08 20:24 | P.CONS ---
History of Present Illness - Reason for Consult Consult date: 10/08/17 - Chief Complaint fever - History of Present Illness 61 -year-old female superobesity presents to the emergency center with his son nonsedative pain and swelling erythema left lower extremity associated with low-grade fever and chills. With history of diabetes, prior toe amputation and chronic nonhealing ulceration to her right heel she rapidly presented because of concerns to the left leg. She's been followed in the wound healing center where she has been treated with a total contact cast for the nonhealing right heel diabetic ulceration that was associated with osteomyelitis when it first started. She is very completed a successful course of antibiotic therapy for the osteomyelitis. The ulceration has been improving with a total contact cast but there is some complication and that she has developed an infestation of bedbugs with her home, every time she presents to the wound center today cast has been infested with the bedbugs. Despite that the ulceration has had marked improvement over the last 4 weeks and she has been doing relatively well. She does not relate to any new trauma or difficulties and left lower extremity as etiology of the start of the cellulitis. This happened the prior third toe amputation from several years ago from Dr. Foster for the osteomyelitis and gangrenous changes to that toe. She does have chronic changes with some edema left lower extremity occasion develops blisters and secondary cellulitis. She struggles with her blood glucose control relates that because of her very poor diet at home which is all that she can afford her blood sugars are always elevated which markedly inhibits her ability to heal. She is aware that her obesity is a great difficulty and she has had an appointment with the bariatric center to determine if there are other options for her to improve her weight and overall health. Review of Systems Constitutional: Denies anorexia, Denies chills, Denies fatigue, Denies fever, Denies lethargy, Denies night sweats, Denies poor appetite, Denies sweats, Denies weight loss Eyes: denies blurred vision, denies pain Ears, nose, mouth and throat: Denies dental pain, Denies headache, Denies mouth pain, Denies sore throat, Denies vertigo Cardiovascular: Denies chest pain, Denies decreased exercise tolerance, Denies dyspnea on exertion, Denies lightheadedness, Denies shortness of breath, Denies syncope Respiratory: Denies congestion, Denies cough, Denies cough with sputum, Denies dyspnea, Denies excessive sputum, Denies hemoptysis, Denies home oxygen, Denies wheezing Gastrointestinal: Denies abdominal pain, Denies diarrhea, Denies nausea, Denies vomiting Genitourinary: Denies dysuria, Denies hematuria, Denies urgency Musculoskeletal: Denies myalgias Integumentary: As per the HPI has a chronic wound right foot plantar surface of the heel and has a cellulitis of the left leg. Neurological: Denies numbness, Denies weakness Psychiatric: Denies anxiety, Denies depression Endocrine: Denies fatigue, Denies weight change Past Medical History Past Medical History: Asthma, Cancer, COPD, Diabetes Mellitus, Eye Disorder, Hyperlipidemia, Liver Disease, Musculoskeletal Disorder, Neurologic Disorder, Osteoarthritis (OA), Sleep Apnea/CPAP/BIPAP, Thyroid Disorder Additional Past Medical History / Comment(s): History of osteomyelitis left #3 toe and left calf: 2004. cervical cancer (in remission.) Wound vac. Cirrhosis of the liver r/t diabetes - sees Dr. Barraza History of Any Multi-Drug Resistant Organisms: MRSA Year Discovered:: 03/20/17 MDRO Source:: MRSA HEEL Past Surgical History: Section, Cholecystectomy, Hysterectomy, Orthopedic Surgery, Tonsillectomy, Tubal Ligation Additional Past Surgical History / Comment(s): Cataracts and laser surgery for glaucoma. Multiple I&D to left foot and lower leg. Past Anesthesia/Blood Transfusion Reactions: No Reported Reaction Past Psychological History: Anxiety, Bipolar, Depression Additional Psychological History / Comment(s): Borderline personality. Patient was a smoker of 2 packs per day for 21 years and quit in 1992. She does use marijuana on occasional basis. She denies any medical marijuana card. She denies any alcohol use or abuse. She is currently living at home and one adult son is living with her. She has been on disability. She is mostly wheelchair bound. Medically disabled. No international travel. No animals in the home. Daughter with her child and child's father live in the basement of the home. Smoking Status: Former smoker Past Alcohol Use History: None Reported Additional Past Alcohol Use History / Comment(s): Patient was a smoker of 2 packs per day for 21 years and quit in 1992. She does use marijuana on occasional basis. She denies any medical marijuana card. She denies any alcohol use or abuse. She is currently living at home and one adult son is living with her. She has been on disability. She is mostly wheelchair bound. Medically disabled. No international travel. No animals in the home. Daughter with her child and child's father live in the basement of the home. Past Drug Use History: Marijuana - Past Family History Father Family Medical History: Congestive Heart Failure (CHF), Coronary Artery Disease (CAD), Myocardial Infarction ([place]) Mother Family Medical History: Coronary Artery Disease (CAD), CVA/TIA, Dementia, Myocardial Infarction ([place]) Medications and Allergies Home Medications and Allergies Comment(s): Current Medications Acetaminophen (Tylenol Tab) 650 mg PO Q6HR PRN PRN Reason: Mild Pain or Fever > 100.5 Hydrocodone Bitart/Acetaminophen ([place] 10) 1 each PO Q8H PRN PRN Reason: Severe Pain Last Admin: 10/08/17 12:31 Dose: 1 each Albuterol Sulfate (Ventolin Nebulized) 2.5 mg INHALATION RT-QID PRN PRN Reason: Shortness Of Breath Atorvastatin Calcium (Lipitor) 20 mg PO HS@2100 [facility] Cyclobenzaprine HCl (Flexeril) 10 mg PO BID@1000,2100 [facility] Last Admin: 10/08/17 11:10 Dose: 10 mg Famotidine (Pepcid) 20 mg PO DAILY [facility] Vancomycin HCl 1,750 mg/ (Sodium Chloride) 500 mls @ 167 mls/hr IVPB Q12H [facility] Insulin Aspart (Novolog) 30 unit SQ AC-TID [facility] Last Admin: 10/08/17 17:59 Dose: 30 unit Insulin Aspart (Novolog) 0 unit SQ ACHS [facility]; Protocol Last Admin: 10/08/17 17:53 Dose: Not Given Insulin Detemir (Levemir) 80 unit SQ AC-SUPPER [facility] Last Admin: 10/08/17 18:09 Dose: 80 unit Insulin Detemir (Levemir) 100 unit SQ AC-BRKFST [facility] Latanoprost (Xalatan 0.005%) 1 drops BOTH EYES [facility] Levothyroxine Sodium (Synthroid) 100 mcg PO 0630 [facility] Loratadine (Claritin) 10 mg PO HS [facility] Metformin HCl (Glucophage) 850 mg PO BID@1000,2100 [facility] Last Admin: 10/08/17 11:11 Dose: 850 mg Multivitamins (Theragran) 1 each PO 1200 [facility] Last Admin: 10/08/17 11:12 Dose: 1 each Naloxone HCl (Narcan) 0.2 mg IV Q2M PRN PRN Reason: Opioid Reversal Nystatin (Mycostatin Powder) 1 applic TOPICAL BID [facility] Last Admin: 10/08/17 08:27 Dose: 1 applic Ondansetron HCl (Zofran) 4 mg IVP Q8HR PRN PRN Reason: Nausea And Vomiting Pregabalin (Lyrica) 75 mg PO BID [facility] Last Admin: 10/08/17 11:18 Dose: 75 mg Silver Sulfadiazine (Silvadene Cream) 1 applic TOPICAL BID [facility] Triamcinolone Acetonide (Kenalog 0.5% Cream) 1 applic TOPICAL DAILY [facility] Triamterene/HCTZ (Maxzide-25) 1 each PO BID@1000,1400 [facility] Last Admin: 10/08/17 15:43 Dose: 1 each Venlafaxine HCl (Effexor Xr) 150 mg PO DAILY@1000 [facility] Last Admin: 10/08/17 11:12 Dose: 150 mg Home Medications Medication Instructions Recorded Confirmed Type Albuterol Inhaler [Ventolin Hfa 1 - 2 puff INHALATION RT-QID PRN 02/18/14 History Inhaler] Cyclobenzaprine [Flexeril] 10 mg PO BID@1000,2100 02/18/14 10/08/17 History Simvastatin [Zocor] 40 mg PO HS@209902/18/14 10/08/17 History metFORMIN HCL [Glucophage] 850 mg PO BID@1000,2100 02/18/14 10/08/17 History Cetirizine HCl 10 mg PO HS 10/25/14 10/08/17 History Albuterol Sulfate 2.5 mg INHALATION RT-QID PRN 12/14/15 10/08/17 History Aspirin EC [Ecotrin Low Dose] 81 mg PO DAILY@1000 06/01/16 10/08/17 History Venlafaxine HCl [Effexor XR] 150 mg PO DAILY@1000 03/26/17 10/08/17 History HYDROcodone/APAP 10-325MG [[place] 1 tab PO Q8H PRN #42 tab 03/30/17 10/08/17 Rx 10-325] Insulin Glargine,Hum.rec.anlog 80 unit SQ AC-SUPPER 05/17/17 10/08/17 History [Basaglar Kwikpen U-100] Insulin Glargine,Hum.rec.anlog 100 unit SQ AC-BRKFST 05/17/17 10/08/17 History [Basaglar Kwikpen U-100] Nystatin 100,000Unit/gm Cream 1 applic TOPICAL BID 05/17/17 10/08/17 History [Mycostatin Cream] Triamterene-Hctz 37.5-25Mg 1 tab PO BID@1000,1400 05/17/17 10/08/17 History [Maxzide 37.5-25] Fexofenadine HCl [Ruby Allergy] 180 mg PO DAILY 07/09/17 10/08/17 History Glucagon Emergency Kit 1 mg IM ONCE PRN 07/09/17 10/08/17 History INSULIN LISPRO (humaLOG) [humaLOG] 30 units SQ AC-TID 07/09/17 10/08/17 History Pregabalin [Lyrica] 75 mg PO BID 07/09/17 10/08/17 History Latanoprost Ophth [Xalatan 0.005%] 1 drops BOTH EYES HS ml 07/10/17 10/08/17 Rx Diclofenac Sodium [Voltaren Gel] 2 gram TOPICAL TID 10/08/17 10/08/17 History Ibuprofen [Motrin] 800 mg PO BID 10/08/17 10/08/17 History Levothyroxine Sodium [Synthroid] 100 mcg PO DAILY 10/08/17 10/08/17 History Multivit-Min/FA/Lycopen/Lutein 1 tab PO DAILY 10/08/17 10/08/17 History [Centrum Silver Tablet] Triamcinolone 0.5% Cream [Kenalog 1 applic TOPICAL DAILY 10/08/17 10/08/17 History 0.5% Cream] Allergies Allergy/AdvReac Type Severity Reaction Status Date / Time Penicillins Allergy Anaphylaxis Verified 10/07/17 20:41 Physical Exam Vitals: Vital Signs Temp Pulse Pulse Resp BP BP Pulse Ox 10/08/17 13:47 97.0 F L 74 18 133/77 96 10/08/17 07:05 97.2 F L 68 16 116/53 95 10/08/17 03:12 98.1 F 73 20 138/62 100 10/08/17 00:00 98.6 F 78 20 166/80 98 10/07/17 20:39 98.5 F 77 20 170/72 97 Intake and Output 10/08/17 10/08/17 10/08/17 06:59 14:59 22:59 Intake Total 300 Balance 300 Intake: Oral 300 Other: Voiding Method Toilet # Voids 1 1 1 # Bowel Movements 1 Weight 157.397 kg 157.397 kg 61-year-old woman who suffers superobesity but is quite comfortable at this point in time, is sitting in bed with her legs in the dependent position. HEENT: Anicteric conjunctiva are pink and moist nasal mucosa grossly intact without significant lesions, there is no thrush. Neck: The neck is supple without significant lymphadenopathy or thyromegaly. Lungs: Good bilateral air entry without significant crackles or wheezing. There is no significant bronchial sounds. There is no egophony or dullness. Heart: Regular rate and rhythm with an audible S1-S2, no S3 no S4. There is no significant murmur click or rub, PMI was nondisplaced. Abdomen: Obese, Positive bowel sounds soft and nontender without palpable masses or organomegaly. There was no guarding or rebound. Extremities: The upper extremities have excellent pulses they are symmetric, no significant petechiae or telangiectasia. No splinter hemorrhages were noted. The lower extremities reveal evidence of the ulceration to the right plantar surface of the heel measuring approximately 1.5 x1.5 x 0.1cm with excellent granulation tissue. Left lower extremities shows evidence of some swelling compared to the right. There is evidence of the erythema that goes from the foot to the mid calf level. There are no distinct open ulcerations with the skin is dry and scaly. Neuro: Awake alert oriented to person place and time. There are no acute new gross focal sensory motor deficits. Results CBC & Chem 7: 10/08/17 08:54 10/08/17 08:54 Labs: Abnormal Lab Results - Last 24 Hours (Table) 10/07/17 10/07/17 10/07/17 Range/Units 22:19 22:19 23:36 RBC (3.80-5.40) m/uL Hgb (11.4-16.0) gm/dL Hct (34.0-46.0) % RDW 16.7 H (11.5-15.5) % Plt Count 83 L (150-450) k/uL Lymphocytes # (1.0-4.8) k/uL Glucose 448 H (74-99) mg/dL POC Glucose (mg/dL) 362 H (75-99) mg/dL Total Protein (6.3-8.2) g/dL Albumin (3.5-5.0) g/dL 10/08/17 10/08/17 10/08/17 Range/Units 02:41 04:05 07:07 RBC (3.80-5.40) m/uL Hgb (11.4-16.0) gm/dL Hct (34.0-46.0) % RDW (11.5-15.5) % Plt Count (150-450) k/uL Lymphocytes # (1.0-4.8) k/uL Glucose (74-99) mg/dL POC Glucose (mg/dL) 330 H 379 H 290 H (75-99) mg/dL Total Protein (6.3-8.2) g/dL Albumin (3.5-5.0) g/dL 10/08/17 10/08/17 10/08/17 Range/Units 08:54 08:54 09:15 RBC 3.77 L (3.80-5.40) m/uL Hgb 10.8 L (11.4-16.0) gm/dL Hct 32.8 L (34.0-46.0) % RDW 16.4 H (11.5-15.5) % Plt Count 66 L (150-450) k/uL Lymphocytes # 0.9 L (1.0-4.8) k/uL Glucose 336 H (74-99) mg/dL POC Glucose (mg/dL) 346 H (75-99) mg/dL Total Protein 5.9 L (6.3-8.2) g/dL Albumin 2.8 L (3.5-5.0) g/dL 10/08/17 10/08/17 10/08/17 Range/Units 10:57 12:17 16:54 RBC (3.80-5.40) m/uL Hgb (11.4-16.0) gm/dL Hct (34.0-46.0) % RDW (11.5-15.5) % Plt Count (150-450) k/uL Lymphocytes # (1.0-4.8) k/uL Glucose (74-99) mg/dL POC Glucose (mg/dL) 304 H 279 H 226 H (75-99) mg/dL Total Protein (6.3-8.2) g/dL Albumin (3.5-5.0) g/dL Laboratory Results WBC 5.0 k/uL (3.8-10.6) 10/08/17 08:54 RBC 3.77 m/uL (3.80-5.40) L 10/08/17 08:54 Hgb 10.8 gm/dL (11.4-16.0) L 10/08/17 08:54 Hct 32.8 % (34.0-46.0) L 10/08/17 08:54 MCV 87.1 fL (80.0-100.0) 10/08/17 08:54 MCH 28.7 pg (25.0-35.0) 10/08/17 08:54 MCHC 33.0 g/dL (31.0-37.0) 10/08/17 08:54 RDW 16.4 % (11.5-15.5) H 10/08/17 08:54 Plt Count 66 k/uL (150-450) L 10/08/17 08:54 Neutrophils % 71 % 10/08/17 08:54 Lymphocytes % 17 % 10/08/17 08:54 Monocytes % 5 % 10/08/17 08:54 Eosinophils % 4 % 10/08/17 08:54 Basophils % 1 % 10/08/17 08:54 Neutrophils # 3.6 k/uL (1.3-7.7) 10/08/17 08:54 Lymphocytes # 0.9 k/uL (1.0-4.8) L 10/08/17 08:54 Monocytes # 0.3 k/uL (0-1.0) 10/08/17 08:54 Eosinophils # 0.2 k/uL (0-0.7) 10/08/17 08:54 Basophils # 0.0 k/uL (0-0.2) 10/08/17 08:54 Manual Slide Review Performed 10/07/17 22:19 Hypochromasia Slight 10/08/17 08:54 Poikilocytosis Slight 10/08/17 08:54 Anisocytosis Slight 10/08/17 08:54 Sodium 139 mmol/L (137-145) 10/08/17 08:54 Potassium 4.2 mmol/L (3.5-5.1) 10/08/17 08:54 Chloride 107 mmol/L (98-107) 10/08/17 08:54 Carbon Dioxide 23 mmol/L (22-30) 10/08/17 08:54 Anion Gap 9 mmol/L 10/08/17 08:54 BUN 13 mg/dL (7-17) 10/08/17 08:54 Creatinine 0.70 mg/dL (0.52-1.04) 10/08/17 08:54 Est GFR (CKD-EPI)AfAm >90 (>60 ml/min/1.73 sqM) 10/08/17 08:54 Est GFR (CKD-EPI)NonAf >90 (>60 ml/min/1.73 sqM) 10/08/17 08:54 Glucose 336 mg/dL (74-99) H 10/08/17 08:54 POC Glucose (mg/dL) 226 mg/dL (75-99) H 10/08/17 16:54 POC Glu [employer] ID Marisa Longoria 10/08/17 16:54 Calcium 8.4 mg/dL (8.4-10.2) 10/08/17 08:54 Total Bilirubin 0.6 mg/dL (0.2-1.3) 10/08/17 08:54 AST 20 U/L (14-36) 10/08/17 08:54 ALT 30 U/L (9-52) 10/08/17 08:54 Alkaline Phosphatase 68 U/L (38-126) 10/08/17 08:54 Total Protein 5.9 g/dL (6.3-8.2) L 10/08/17 08:54 Albumin 2.8 g/dL (3.5-5.0) L 10/08/17 08:54 Assessment and Plan (1) Cellulitis of left lower extremity Narrative/Plan: 61-year-old female presents to Hospital with the rather sudden onset of pain and swelling erythema left lower extremity. With her history of prior bouts of cellulitis she presented emergency center and has been admitted. She hasn't initiated vancomycin therapy and is showing some improvements with this as well as some improvement of her underlying glucose control which is usually poor the last hemoglobin A1c was 8.7. At this time and some improvement and will continue with Silvadene wrap and elevation to the left leg. Lower extremity be treated with therahoney dressing should be changed daily and to avoid weightbearing as much as possible to that foot until total contact cast can be reapplied at the wound center. Current Visit: Yes Status: Acute Code(s): L03.116 - CELLULITIS OF LEFT LOWER LIMB SNOMED Code(s): 352999568 (2) Diabetic ulcer of right foot associated with type 1 diabetes mellitus, with bone involvement without evidence of necrosis Current Visit: Yes Status: Acute Code(s): E10.621 - TYPE 1 DIABETES MELLITUS WITH FOOT ULCER; L97.516 - NON-[facility] OT PRT R FOOT WITH BNE INVL W/O EVD OF NECR SNOMED Code(s): 916087252316656 (3) Morbid obesity with BMI of 50.0-59.9, adult Current Visit: No Status: Chronic Code(s): E66.01 - MORBID (SEVERE) OBESITY DUE TO EXCESS CALORIES; Z68.43 - BODY MASS INDEX (BMI) 50-59.9 , ADULT SNOMED Code(s): 641172883
[2017-10-08 20:40] LABS: Glucose,Whole Blood 193 mg/dL (75-99)
[2017-10-08] MEDS: ATORVASTATIN 20 MG TAB PO SCH (22:03)
[2017-10-08] MEDS: LATANOPROST 0.005% OPHTH DROPS 2.5 ML BTL BOTH EYES SCH (22:05)
[2017-10-08] MEDS: LORATADINE 10 MG TAB PO SCH (22:06)
--- NOTE | 2017-10-08 22:19 | P.CONS ---
History of Present Illness - Reason for Consult Consult date: 10/08/17 Thrombocytopenia Requesting physician: Rayna Espinoza - Chief Complaint Calf Pain and redness - History of Present Illness Ms Baker is a pleasant WF, initially seen in consult at [facility] in 02/12. She had come in for a possible TIA, and was noted to have a low plt count in the 60- [id number] range, as well as slightly low Hgb 11-12, and WBC ( 3-4). Review of her labs did show intermittent mild cytopenias going back several months. Her coags were mildly elevated. Her w/u revealed hepatomegaly with appearance c/w fatty infiltration, and splenomegaly. Thus this was felt to be the likely cause. She had slightly abnormal light chain ratio of uncertain significance. She was cleared for discharge and as seen for her 1st OV on 07/30/13. Her plt remained stable at 62. Repeat light chain levels showed mild elevation of both with intact ratio, which is a benign finding. Thus only prn f/u was recommended. She has multiple known co-morbidities including the chronic thrombocytopenia, which decreases and worsens with other acute flairs of infection or chronic disease. Other known past medical history includes osteomyelitis from diabetic unhealing foot ulcer, complicated by MRSA, follows with Dr. Nielsen from Infectious disease. She has a known history of DM2, Hyperlipidemia, Hypothyroidism, and Morbid obesity. She has had third toe of her left foot amputated. 10/08/17 - Ms Baker presented to the emergency department with complaints of pain and increasing swelling of her left lower calf. It has worsened over the past few days. Her platlet count was 66K on admission, Ms Baker is well known to us in the past for her low platlet count, baseline around 70-90K, her past indicates she tends to drop with increased acute inflammatory issues. She has no complaints at this time other than her calf is chief operator lock tender and bottom of right foot has open wound. Review of Systems A 14 point review of systems assessed and completed and all negative except HPI Past Medical History Past Medical History: Asthma, Cancer, COPD, Diabetes Mellitus, Eye Disorder, Hyperlipidemia, Liver Disease, Musculoskeletal Disorder, Neurologic Disorder, Osteoarthritis (OA), Sleep Apnea/CPAP/BIPAP, Thyroid Disorder Additional Past Medical History / Comment(s): History of osteomyelitis left #3 toe and left calf: 2004. cervical cancer (in remission.) Wound vac. Cirrhosis of the liver r/t diabetes - sees Dr. Barraza History of Any Multi-Drug Resistant Organisms: MRSA Year Discovered:: 03/20/17 MDRO Source:: MRSA HEEL Past Surgical History: Section, Cholecystectomy, Hysterectomy, Orthopedic Surgery, Tonsillectomy, Tubal Ligation Additional Past Surgical History / Comment(s): Cataracts and laser surgery for glaucoma. Multiple I&D to left foot and lower leg. Past Anesthesia/Blood Transfusion Reactions: No Reported Reaction Past Psychological History: Anxiety, Bipolar, Depression Additional Psychological History / Comment(s): Borderline personality. Patient was a smoker of 2 packs per day for 21 years and quit in 1992. She does use marijuana on occasional basis. She denies any medical marijuana card. She denies any alcohol use or abuse. She is currently living at home and one adult son is living with her. She has been on disability. She is mostly wheelchair bound. Medically disabled. No international travel. No animals in the home. Daughter with her child and child's father live in the basement of the home. Smoking Status: Former smoker Past Alcohol Use History: None Reported Additional Past Alcohol Use History / Comment(s): Patient was a smoker of 2 packs per day for 21 years and quit in 1992. She does use marijuana on occasional basis. She denies any medical marijuana card. She denies any alcohol use or abuse. She is currently living at home and one adult son is living with her. She has been on disability. She is mostly wheelchair bound. Medically disabled. No international travel. No animals in the home. Daughter with her child and child's father live in the basement of the home. Past Drug Use History: Marijuana - Past Family History Father Family Medical History: Congestive Heart Failure (CHF), Coronary Artery Disease (CAD), Myocardial Infarction (GA) Mother Family Medical History: Coronary Artery Disease (CAD), CVA/TIA, Dementia, Myocardial Infarction (GA) Medications and Allergies Home Medications Medication Instructions Recorded Confirmed Type Albuterol Inhaler [Ventolin Hfa 1 - 2 puff INHALATION RT-QID PRN 02/18/14 History Inhaler] Cyclobenzaprine [Flexeril] 10 mg PO BID@1000,2100 02/18/14 10/08/17 History Simvastatin [Zocor] 40 mg PO HS@2100 02/18/14 10/08/17 History metFORMIN HCL [Glucophage] 850 mg PO BID@1000,2100 02/18/14 10/08/17 History Cetirizine HCl 10 mg PO HS 10/25/14 10/08/17 History Albuterol Sulfate 2.5 mg INHALATION RT-QID PRN 12/14/15 10/08/17 History Aspirin EC [Ecotrin Low Dose] 81 mg PO DAILY@1000 06/01/16 10/08/17 History Venlafaxine HCl [Effexor XR] 150 mg PO DAILY@1000 03/26/17 10/08/17 History HYDROcodone/APAP 10-325MG [[place] 1 tab PO Q8H PRN #42 tab 03/30/17 10/08/17 Rx 10-325] Insulin Glargine,Hum.rec.anlog 80 unit SQ AC-SUPPER 05/17/17 10/08/17 History [Basaglar Kwikpen U-100] Insulin Glargine,Hum.rec.anlog 100 unit SQ AC-BRKFST 05/17/17 10/08/17 History [Basaglar Kwikpen U-100] Nystatin 100,000Unit/gm Cream 1 applic TOPICAL BID 05/17/17 10/08/17 History [Mycostatin Cream] Triamterene-Hctz 37.5-25Mg 1 tab PO BID@1000,1400 05/17/17 10/08/17 History [Maxzide 37.5-25] Fexofenadine HCl [Ruby Allergy] 180 mg PO DAILY 07/09/17 10/08/17 History Glucagon Emergency Kit 1 mg IM ONCE PRN 07/09/17 10/08/17 History INSULIN LISPRO (humaLOG) [humaLOG] 30 units SQ AC-TID 07/09/17 10/08/17 History Pregabalin [Lyrica] 75 mg PO BID 07/09/17 10/08/17 History Latanoprost Ophth [Xalatan 0.005%] 1 drops BOTH EYES HS ml 07/10/17 10/08/17 Rx Diclofenac Sodium [Voltaren Gel] 2 gram TOPICAL TID 10/08/17 10/08/17 History Ibuprofen [Motrin] 800 mg PO BID 10/08/17 10/08/17 History Levothyroxine Sodium [Synthroid] 100 mcg PO DAILY 10/08/17 10/08/17 History Multivit-Min/FA/Lycopen/Lutein 1 tab PO DAILY 10/08/17 10/08/17 History [Centrum Silver Tablet] Triamcinolone 0.5% Cream [Kenalog 1 applic TOPICAL DAILY 10/08/17 10/08/17 History 0.5% Cream] Allergies Allergy/AdvReac Type Severity Reaction Status Date / Time Penicillins Allergy Anaphylaxis Verified 10/07/17 20:41 Physical Exam Vitals: Vital Signs Temp Pulse Pulse Resp BP BP Pulse Ox 10/08/17 13:47 97.0 F L 74 18 133/77 96 10/08/17 07:05 97.2 F L 68 16 116/53 95 10/08/17 03:12 98.1 F 73 20 138/62 100 10/08/17 00:00 98.6 F 78 20 166/80 98 Intake and Output 10/08/17 10/08/17 10/08/17 06:59 14:59 22:59 Intake Total 300 Balance 300 Intake: Oral 300 Other: Voiding Method Toilet # Voids 1 1 1 # Bowel Movements 1 Weight 157.397 kg 157.397 kg - Constitutional General appearance: no acute distress, obese - EENT Eyes: PERRLA, poor dentition ENT: NA/AT, normal oropharynx - Neck supple, Trachea Midline Neck: normal ROM - Respiratory Respiratory: bilateral: CTA (No increased respiratory effort) - Cardiovascular Rhythm: regular Heart sounds: normal: S1, S2 foot Peripheral Edema: right: Other (Bottom of right foot dime size quarter open lesion (appears previous blister)), left: 2+ (Lower extremity and calf with erythema) - Gastrointestinal General gastrointestinal: normal bowel sounds, soft - Integumentary Integumentary: normal - Neurologic No Focal Defects Neurologic: CNII-XII intact - Musculoskeletal Musculoskeletal: generalized weakness, strength equal bilaterally - Psychiatric Psychiatric: A&O x's 3, appropriate affect, intact judgment & insight Results CBC & Chem 7: 10/08/17 08:54 10/08/17 08:54 Labs: Abnormal Lab Results - Last 24 Hours (Table) 10/07/17 10/07/17 10/07/17 Range/Units 22:19 22:19 23:36 RBC (3.80-5.40) m/uL Hgb (11.4-16.0) gm/dL Hct (34.0-46.0) % RDW 16.7 H (11.5-15.5) % Plt Count 83 L (150-450) k/uL Lymphocytes # (1.0-4.8) k/uL Glucose 448 H (74-99) mg/dL POC Glucose (mg/dL) 362 H (75-99) mg/dL Total Protein (6.3-8.2) g/dL Albumin (3.5-5.0) g/dL 10/08/17 10/08/17 10/08/17 Range/Units 02:41 04:05 07:07 RBC (3.80-5.40) m/uL Hgb (11.4-16.0) gm/dL Hct (34.0-46.0) % RDW (11.5-15.5) % Plt Count (150-450) k/uL Lymphocytes # (1.0-4.8) k/uL Glucose (74-99) mg/dL POC Glucose (mg/dL) 330 H 379 H 290 H (75-99) mg/dL Total Protein (6.3-8.2) g/dL Albumin (3.5-5.0) g/dL 10/08/17 10/08/17 10/08/17 Range/Units 08:54 08:54 09:15 RBC 3.77 L (3.80-5.40) m/uL Hgb 10.8 L (11.4-16.0) gm/dL Hct 32.8 L (34.0-46.0) % RDW 16.4 H (11.5-15.5) % Plt Count 66 L (150-450) k/uL Lymphocytes # 0.9 L (1.0-4.8) k/uL Glucose 336 H (74-99) mg/dL POC Glucose (mg/dL) 346 H (75-99) mg/dL Total Protein 5.9 L (6.3-8.2) g/dL Albumin 2.8 L (3.5-5.0) g/dL 07/09/18 07/09/18 07/09/18 Range/Units 10:57 12:17 16:54 RBC (3.80-5.40) m/uL Hgb (11.4-16.0) gm/dL Hct (34.0-46.0) % RDW (11.5-15.5) % Plt Count (150-450) k/uL Lymphocytes # (1.0-4.8) k/uL Glucose (74-99) mg/dL POC Glucose (mg/dL) 304 H 279 H 226 H (75-99) mg/dL Total Protein (6.3-8.2) g/dL Albumin (3.5-5.0) g/dL 10/08/17 Range/Units 20:36 RBC (3.80-5.40) m/uL Hgb (11.4-16.0) gm/dL Hct (34.0-46.0) % RDW (11.5-15.5) % Plt Count (150-450) k/uL Lymphocytes # (1.0-4.8) k/uL Glucose (74-99) mg/dL POC Glucose (mg/dL) 193 H (75-99) mg/dL Total Protein (6.3-8.2) g/dL Albumin (3.5-5.0) g/dL Assessment and Plan Plan: Assessment and Recommendations: 1. Normocytic Anemia - Likely multifactoral to inflammation, chronic disease, iron deficiency hx - Baseline is 11 - Decreased with hydration dilutional likely - Monitor CBC 2. Acute on Chronic Thrombocytopenia - Baseline appears to be 70-90K, today 66K - Chronic and fluctuates secondary to multiple co-morbidities including underlying liver disease, splenomegaly, active infections (she has recurrent) with need for antibiotics, acute inflammatory events. - Monitor CBC and Platelet count, no intervention required unless active signs of bleeding under 50K or platelets less than 10 3. Recurrent non-healing foot ulcers. - Follows Dr. Nielsen as an outpatient - Worsens requiring hospitalizations intermittently throughout year - HX: MRSA, Osteomyelitis 4. Underlying Liver Disease - Known 5. Uncontrolled Diabetes - Per Primary Team 6. Left Lower Extremity Cellulitis Thank you for allowing us to participate in the care of your patient, we will continue to follow along with you. Cony Rollins NP
[2017-10-08] MEDS: VANCOMYCIN 1,750 MG in SODIUM CHLORIDE 0.9% 500 ML IVPB SCH (22:48)
[2017-10-09] MEDS: LEVOTHYROXINE 100 MCG TAB PO SCH (06:44)
[2017-10-09] MEDS: INSULIN ASPART 100 UNIT/ML 1 ML 10 ML VIAL SQ SCH ×7 (07:48→21:31)
[2017-10-09] MEDS: INSULIN DETEMIR 100 UNIT/ML 10 ML VIAL SQ SCH ×2 (07:48→18:05)
[2017-10-09] MEDS: HYDROcodone/APAP 10-325MG 1 EACH TAB PO PRN ×2 (07:49→20:01)
[2017-10-09 07:51] LABS: Glucose,Whole Blood 166 mg/dL (75-99)
[2017-10-09] MEDS: FAMOTIDINE 20 MG TAB PO SCH (07:51)
[2017-10-09] MEDS: TRIAMCINOLONE ACET 0.5% CREAM 15 GM TUBE TOPICAL SCH (07:52)
[2017-10-09] MEDS: NYSTATIN 100,000 UNIT/GM POWD 15 GM TOPICAL SCH ×2 (07:52→21:32)
[2017-10-09] MEDS: PREGABALIN 75 MG CAP PO SCH ×2 (07:56→21:33)
[2017-10-09] MEDS: MULTIVITAMINS, THERA 1 EACH TAB PO SCH (07:57)
[2017-10-09] MEDS ORDERED: NON-FORMULARY DRUG (Fexofenadine Hcl [Allegra Allergy] 180 MG) PO SCH (09:00)
[2017-10-09] MEDS ORDERED: ENOXAPARIN 40 MG/0.4 ML SYRINGE SQ SCH (09:00)
[2017-10-09] MEDS: CYCLOBENZAPRINE 10 MG TAB PO SCH ×2 (09:39→21:30)
[2017-10-09] MEDS: VENLAFAXINE HCL ER 150 MG CAP PO SCH (09:39)
[2017-10-09] MEDS: metFORMIN 850 MG TAB PO SCH ×2 (09:39→21:30)
[2017-10-09] MEDS: TRIAMTERENE-HCTZ 37.5-25MG 1 EACH TAB PO SCH ×2 (09:39→14:00)
[2017-10-09] MEDS: VANCOMYCIN 1,750 MG in SODIUM CHLORIDE 0.9% 500 ML IVPB SCH ×2 (09:40→21:33)
--- NOTE | 2017-10-09 10:02 | P.PN ---
Subjective Progress Note Date: 10/09/17 This is a 61-year-old female who presented to the emergency department with chief complaint of left calf pain and redness that has gotten worse over the past few days. She has a significant history of wounds on her right heel with MRSA and chronic osteomyletis that is managed by Dr. Nielsen and a history for reoccurring cellulites in both her right and left calves. She states she has had to be admitted multiple times in the past for IV antibiotics for this problem. Other significant history includes diabetes, diabetic neuropathy, chronic wounds to right foot, asthma, cancer, COPD, morbid obesity, hyperlipidemia, liver disease, musculoskeletal disorder, osteoarthritis, sleep apnea and thyroid disorder. Per nursing staff patient came in with bed bugs that were on the boot that she had on her right foot. Patient denies chest pain or shortness of breath at this time. Dr. Nielsen has been consulted. Blood culture has been ordered and is currently pending. Home medications reviewed. On 10/09/2017 patient is currently resting comfortably in bed. Dr. Nielsen following patient, recommendations for wound care. Dr. Salgado also consulted for thrombocytopenia, will continue to monitor at this time. Blood sugars better controlled this morning. Objective - Vital Signs Vital signs: Vital Signs Temp 96.8 F L 10/09/17 06:00 Pulse 68 10/09/17 06:00 Resp 20 10/09/17 06:00 BP 126/65 10/09/17 06:00 Pulse Ox 94 L 10/09/17 06:00 Intake & Output 10/08/17 10/09/17 10/09/17 18:59 06:59 18:59 Intake Total 600 480 Balance 600 480 Weight 157.397 kg Intake: Oral 600 480 Other: Voiding Method Toilet # Voids 1 1 # Bowel Movements 1 1 - Exam Head normocephalic Neck supple Lungs clear to auscultation bilaterally no wheezing or crackles Heart regular rate and rhythm S1-S2, no rub or gallop Abdomen is soft nontender nondistended positive bowel sounds no hepatosplenomegaly Extremities left lower extremity slightly edematous and erythema. 2 healing ULCERS on top of left second and third toes. Heel open wound, no signs erythema or drainage Neuro alert and orientated to 3 - Labs CBC & Chem 7: 10/08/17 08:54 10/08/17 08:54 Labs: Abnormal Lab Results - Last 24 Hours (Table) 10/08/17 10/08/17 10/08/17 Range/Units 08:54 10:57 12:17 Glucose 336 H (74-99) mg/dL POC Glucose (mg/dL) 304 H 279 H (75-99) mg/dL Total Protein 5.9 L (6.3-8.2) g/dL Albumin 2.8 L (3.5-5.0) g/dL 10/08/17 10/08/17 10/09/17 Range/Units 16:54 20:36 07:23 Glucose (74-99) mg/dL POC Glucose (mg/dL) 226 H 193 H 166 H (75-99) mg/dL Total Protein (6.3-8.2) g/dL Albumin (3.5-5.0) g/dL Microbiology - Last 24 Hours (Table) 10/07/17 22:19 Blood Culture - Preliminary Blood No Growth after 24 hours Assessment and Plan Assessment: 1. Left lower extremity cellulitis. IV Vancomycin for antibiotics have been ordered. Blood culture showing no growth at this time. Per Dr. Nielsen will continue Silverdene wrap and elevation of left leg. Vancomycin for antibiotic. 2. Diabetes mellitus type 2 with uncontrolled blood sugars. Sugars have been consistently in the 300s since admission. Patient states she takes 100 units of long-acting insulin in the morning and 80 units long-acting insulin at night +30 units of Humalog with meals. Medical record reviewed with pharmacy and patient. Home medications ordered. Blood sugars have improved 3. Chronic thrombocytopenia . Platelet count 66. Previous admission Dr. salgado consulted for hematology for thrombocytopenia. Per hematology thrombocytopenia related secondary to multiple comorbidities including liver disease, splenomegaly, worsening with active infection and need for antibiotics. Dr. Salgado following will continue to monitor platelet count and signs of bleeding. 4. Morbid obesity 5. Hyperlipidemia continue Lipitor 6. Hypothyroidism continue Synthroid 7. Chronic diabetic foot ulcer of the right heel. Followed closely by infectious disease outpatient at the wound care center 8. History of bipolar depression. Home medications of Effexor and Lyrica ordered. DVT prophyalxis currently on hold due Thrombocytompenia, GI prophylaxis Pepcid. I performed an examination of the patient and discussed their management with the Nurse Practitioner. I have reviewed the Nurse Practitioner's notes and agree with the documented findings and plan of care
[2017-10-09 10:15] LABS: Anisocytosis Slight; Basophils % (A) 1 %; Eosinophils # (A) 0.3 k/uL (0-0.7); Eosinophils % (A) 5 %; HCT 35.2 % (34.0-46.0); HGB 11.4 gm/dL (11.4-16.0); Hypochromasia Slight; Lymphocytes # (A) 0.9 k/uL (1.0-4.8); Lymphocytes % (A) 19 %; MCH 28.4 pg (25.0-35.0); MCHC 32.4 g/dL (31.0-37.0); MCV 87.9 fL (80.0-100.0); Mean Platelet Volume 7.6; Monocytes # (A) 0.3 k/uL (0-1.0); Monocytes % (A) 5 %; Neutrophils # (A) 3.3 k/uL (1.3-7.7); Neutrophils % (A) 68 %; Poikilocytosis Slight; RBC 4.01 m/uL (3.80-5.40); RDW 16.4 % (11.5-15.5); WBC 4.9 k/uL (3.8-10.6)
[2017-10-09 10:24] LABS: Platelet Count 71 k/uL (150-450)
[2017-10-09 11:03] LABS: ALT 27 U/L (9-52); AST 22 U/L (14-36); Albumin 3.1 g/dL (3.5-5.0); Alkaline Phosphatase 72 U/L (38-126); Anion Gap 10 mmol/L; Blood Urea Nitrogen 13 mg/dL (7-17); Calcium 8.5 mg/dL (8.4-10.2); Carbon Dioxide 26 mmol/L (22-30); Chloride 106 mmol/L (98-107); Glucose 217 mg/dL (74-99); Potassium 4.6 mmol/L (3.5-5.1); Sodium 142 mmol/L (137-145); Total Bilirubin 0.4 mg/dL (0.2-1.3); Total Protein 6.3 g/dL (6.3-8.2)
[2017-10-09 12:05] LABS: Glucose,Whole Blood 197 mg/dL (75-99)
[2017-10-09 16:08] LABS: Iron Saturation 18.48 (12.00-45.00)
[2017-10-09 16:31] LABS: Glucose,Whole Blood 83 mg/dL (75-99)
[2017-10-09 17:25] LABS: Glucose,Whole Blood 72 mg/dL (75-99)
[2017-10-09 21:21] LABS: Glucose,Whole Blood 124 mg/dL (75-99)
[2017-10-09] MEDS: LATANOPROST 0.005% OPHTH DROPS 2.5 ML BTL BOTH EYES SCH (21:30)
[2017-10-09] MEDS: ATORVASTATIN 20 MG TAB PO SCH (21:30)
[2017-10-09] MEDS: LORATADINE 10 MG TAB PO SCH (21:30)
--- NOTE | 2017-10-09 22:33 | P.PN ---
Subjective Progress Note Date: 10/09/17 61 -year-old female superobesity presents to the emergency center with his son nonsedative pain and swelling erythema left lower extremity associated with low-grade fever and chills. With history of diabetes, prior toe amputation and chronic nonhealing ulceration to her right heel she rapidly presented because of concerns to the left leg. She's been followed in the wound healing center where she has been treated with a total contact cast for the nonhealing right heel diabetic ulceration that was associated with osteomyelitis when it first started. She is very completed a successful course of antibiotic therapy for the osteomyelitis. The ulceration has been improving with a total contact cast but there is some complication and that she has developed an infestation of bedbugs with her home, every time she presents to the wound center today cast has been infested with the bedbugs. Despite that the ulceration has had marked improvement over the last 4 weeks and she has been doing relatively well. She does not relate to any new trauma or difficulties and left lower extremity as etiology of the start of the cellulitis. This happened the prior third toe amputation from several years ago from Dr. Foster for the osteomyelitis and gangrenous changes to that toe. She does have chronic changes with some edema left lower extremity occasion develops blisters and secondary cellulitis. She struggles with her blood glucose control relates that because of her very poor diet at home which is all that she can afford her blood sugars are always elevated which markedly inhibits her ability to heal. She is aware that her obesity is a great difficulty and she has had an appointment with the bariatric center to determine if there are other options for her to improve her weight and overall health.. 10/09/2017 patient has had a bout of hypoglycemia unawareness is having a better day. She relates the left leg is feeling better. In the ulceration of the right heel is also feeling better. She's having no other new acute difficulties at this time. Objective - Vital Signs Vital signs: Vital Signs Temp 96.7 F L 10/09/17 14:16 Pulse 75 10/09/17 19:41 Resp 16 10/09/17 19:41 BP 128/67 10/09/17 14:16 Pulse Ox 91 L 10/09/17 14:16 Intake & Output 10/09/17 10/09/17 10/10/17 06:59 18:59 06:59 Intake Total 600 720 Balance 600 720 Intake: Oral 600 720 Other: Voiding Method Toilet Toilet Incontinent # Voids 1 3 # Bowel Movements 1 1 - Exam 61-year-old woman who suffers superobesity but is quite comfortable at this point in time, is sitting in bed with her legs in the dependent position. HEENT: Anicteric conjunctiva are pink and moist nasal mucosa grossly intact without significant lesions, there is no thrush. Neck: The neck is supple without significant lymphadenopathy or thyromegaly. Lungs: Good bilateral air entry without significant crackles or wheezing. There is no significant bronchial sounds. There is no egophony or dullness. Heart: Regular rate and rhythm with an audible S1-S2, no S3 no S4. There is no significant murmur click or rub, PMI was nondisplaced. Abdomen: Obese, Positive bowel sounds soft and nontender without palpable masses or organomegaly. There was no guarding or rebound. Extremities: The upper extremities have excellent pulses they are symmetric, no significant petechiae or telangiectasia. No splinter hemorrhages were noted. The lower extremities reveal evidence of the ulceration to the right plantar surface of the heel measuring approximately 1.5 x1.5 x 0.1cm with excellent granulation tissue. Left lower extremities shows evidence of some swelling compared to the right. There is evidence of the erythema that goes from the foot to the mid calf level. There are no distinct open ulcerations with the skin is dry and scaly. Neuro: Awake alert oriented to person place and time. There are no acute new gross focal sensory motor deficits. - Labs CBC & Chem 7: 10/09/17 09:23 10/09/17 09:23 Labs: Abnormal Lab Results - Last 24 Hours (Table) 10/09/17 10/09/17 10/09/17 Range/Units 07: 09:23 09:23 RDW 16.4 H (11.5-15.5) % Plt Count 71 L (150-450) k/uL Lymphocytes # 0.9 L (1.0-4.8) k/uL Glucose 217 H (74-99) mg/dL POC Glucose (mg/dL) 166 H (75-99) mg/dL Albumin 3.1 L (3.5-5.0) g/dL 10/09/17 10/09/17 10/09/17 Range/Units 12:00 17:13 21:20 RDW (11.5-15.5) % Plt Count (150-450) k/uL Lymphocytes # (1.0-4.8) k/uL Glucose (74-99) mg/dL POC Glucose (mg/dL) 197 H 72 L 124 H (75-99) mg/dL Albumin (3.5-5.0) g/dL Microbiology - Last 24 Hours (Table) 10/07/17 22:19 Blood Culture - Preliminary Blood No Growth after 24 hours Laboratory Results WBC 4.9 k/uL (3.8-10.6) 10/09/17 09:23 RBC 4.01 m/uL (3.80-5.40) 10/09/17 09:23 Hgb 11.4 gm/dL (11.4-16.0) 10/09/17 09:23 Hct 35.2 % (34.0-46.0) 10/09/17 09: MCV 87.9 fL (80.0-100.0) 10/09/17 09:23 MCH 28.4 pg (25.0-35.0) 10/09/17 09:23 MCHC 32.4 g/dL (31.0-37.0) 10/09/17 09:23 RDW 16.4 % (11.5-15.5) H 10/09/17 09:23 Plt Count 71 k/uL (150-450) L 10/09/17 09:23 Neutrophils % 68 % 10/09/17 09:23 Lymphocytes % 19 % 10/09/17 09:23 Monocytes % 5 % 10/09/17 09:23 Eosinophils % 5 % 10/09/17 09:23 Basophils % 1 % 10/09/17 09:23 Neutrophils # 3.3 k/uL (1.3-7.7) 10/09/17 09:23 Lymphocytes # 0.9 k/uL (1.0-4.8) L 10/09/17 09:23 Monocytes # 0.3 k/uL (0-1.0) 10/09/17 09:23 Eosinophils # 0.3 k/uL (0-0.7) 10/09/17 09:23 Basophils # 0.0 k/uL (0-0.2) 07/10/18 09:23 Manual Slide Review Performed 10/07/17 22:19 Hypochromasia Slight 10/09/17 09:23 Poikilocytosis Slight 10/09/17 09:23 Anisocytosis Slight 10/09/17 09:23 Sodium 142 mmol/L (137-145) 10/09/17 09:23 Potassium 4.6 mmol/L (3.5-5.1) 10/09/17 09:23 Chloride 106 mmol/L (98-107) 10/09/17 09:23 Carbon Dioxide 26 mmol/L (22-30) 10/09/17 09:23 Anion Gap 10 mmol/L 10/09/17 09:23 BUN 13 mg/dL (7-17) 10/09/17 09:23 Creatinine 0.76 mg/dL (0.52-1.04) 10/09/17 09:23 Est GFR (CKD-EPI)AfAm >90 (>60 ml/min/1.73 sqM) 10/09/17 09:23 Est GFR (CKD-EPI)NonAf 87 (>60 ml/min/1.73 sqM) 10/09/17 09:23 Glucose 217 mg/dL (74-99) H 10/09/17 09:23 POC Glucose (mg/dL) 124 mg/dL (75-99) H 10/09/17 21:20 POC Glu Maintenance Service Dispatcher ID Eugenia Orozco 10/09/17 21:20 Calcium 8.5 mg/dL (8.4-10.2) 10/09/17 09:23 Iron 63 ug/dL (50-170) 10/09/17 09:23 TIBC 341 ug/dL (228-460) 10/09/17 09:23 Iron Saturation 18.48 (12.00-45.00) 10/09/17 09:23 Ferritin 38.8 ng/mL (10.0-291.0) 10/09/17 09:23 Total Bilirubin 0.4 mg/dL (0.2-1.3) 10/09/17 09:23 AST 22 U/L (14-36) 10/09/17 09:23 ALT 27 U/L (9-52) 10/09/17 09:23 Alkaline Phosphatase 72 U/L (38-126) 10/09/17 09:23 Total Protein 6.3 g/dL (6.3-8.2) 10/09/17 09:23 Albumin 3.1 g/dL (3.5-5.0) L 10/09/17 09:23 Microbiology 10/07/17 22:19 Blood Blood Culture - Preliminary No Growth after 24 hours Assessment and Plan (1) Cellulitis of left lower extremity Narrative/Plan: 61-year-old female presents to Hospital with the rather sudden onset of pain and swelling erythema left lower extremity. With her history of prior bouts of cellulitis she presented emergency center and has been admitted. She hasn't initiated vancomycin therapy and is showing some improvements with this as well as some improvement of her underlying glucose control which is usually poor the last hemoglobin A1c was 8.7. At this time and some improvement and will continue with Silvadene wrap and elevation to the left leg. Lower extremity be treated with therahoney dressing should be changed daily and to avoid weightbearing as much as possible to that foot until total contact cast can be reapplied at the wound center. 10/10/1999 reveals the patient to be feeling better. Cellulitis left lower extremity has improved with the last 24 hours. Is now less tender. The ulceration of the right heel is looking well and tolerating the hydrogel dressing quite well. Her other new acute difficulties are seen and patient will be likely ready for discharge home in the next short period of time. She had hypoglycemia today likely on the basis of her markedly reduced oral intake while she is in hospital. She is feeling better at this time and will have advice for oral antibiotic therapy at discharge. She should follow-up in the wound healing Center hopefully discharge to have her total contact cast reapplied so she can follow up next week for further evaluation. Current Visit: Yes Status: Acute Code(s): L03.116 - CELLULITIS OF LEFT LOWER LIMB SNOMED Code(s): 325169940 (2) Diabetic ulcer of right foot associated with type 1 diabetes mellitus, with bone involvement without evidence of necrosis Current Visit: Yes Status: Acute Code(s): E10.621 - TYPE 1 DIABETES MELLITUS WITH FOOT ULCER; L97.516 - NON-PRS [facility] OTH PRT R FOOT WITH BNE INVL W/O EVD OF NECR SNOMED Code(s): 064548593374806 (3) Morbid obesity with BMI of 50.0-59.9, adult Current Visit: No Status: Chronic Code(s): E66.01 - MORBID (SEVERE) OBESITY DUE TO EXCESS CALORIES; Z68.43 - BODY MASS INDEX (BMI) 50-59.9 , ADULT SNOMED Code(s): 606047020
[2017-10-10 01:17] LABS: Glucose,Whole Blood 161 mg/dL (75-99)
[2017-10-10] MEDS ORDERED: HYDROcodone/APAP 10-325MG 1 EACH TAB ONE (04:00)
[2017-10-10] MEDS: LEVOTHYROXINE 100 MCG TAB PO SCH (06:57)
[2017-10-10 07:19] LABS: Glucose,Whole Blood 120 mg/dL (75-99)
[2017-10-10] MEDS ORDERED: INSULIN DETEMIR 100 UNIT/ML 10 ML VIAL SQ SCH (08:15)
[2017-10-10 08:30] LABS: Anisocytosis Slight; Basophils % (A) 1 %; Eosinophils # (A) 0.3 k/uL (0-0.7); Eosinophils % (A) 6 %; HCT 34.5 % (34.0-46.0); HGB 11.5 gm/dL (11.4-16.0); Hypochromasia Slight; Lymphocytes # (A) 1.1 k/uL (1.0-4.8); Lymphocytes % (A) 19 %; MCH 28.9 pg (25.0-35.0); MCHC 33.2 g/dL (31.0-37.0); Mean Platelet Volume 8.7; Monocytes # (A) 0.3 k/uL (0-1.0); Monocytes % (A) 5 %; Neutrophils # (A) 3.9 k/uL (1.3-7.7); Neutrophils % (A) 67 %; Poikilocytosis Slight; RBC 3.97 m/uL (3.80-5.40); RDW 16.7 % (11.5-15.5); WBC 5.9 k/uL (3.8-10.6)
[2017-10-10 08:33] LABS: Platelet Count 83 k/uL (150-450)
[2017-10-10] MEDS: INSULIN ASPART 100 UNIT/ML 1 ML 10 ML VIAL SQ SCH ×7 (08:49→18:19)
[2017-10-10] MEDS: FAMOTIDINE 20 MG TAB PO SCH (08:49)
[2017-10-10] MEDS: PREGABALIN 75 MG CAP PO SCH (08:49)
[2017-10-10] MEDS ORDERED: VANCOMYCIN TROUGH DUE 1 EACH MISC MISCELLANE ONE (09:00)
[2017-10-10] MEDS: INSULIN DETEMIR 100 UNIT/ML 10 ML VIAL SQ SCH ×2 (09:13→18:39)
[2017-10-10] MEDS: VENLAFAXINE HCL ER 150 MG CAP PO SCH (11:04)
[2017-10-10] MEDS: VANCOMYCIN 1,750 MG in SODIUM CHLORIDE 0.9% 500 ML IVPB SCH (11:04)
[2017-10-10] MEDS: CYCLOBENZAPRINE 10 MG TAB PO SCH (11:04)
[2017-10-10] MEDS: metFORMIN 850 MG TAB PO SCH (11:04)
[2017-10-10] MEDS: MULTIVITAMINS, THERA 1 EACH TAB PO SCH (11:04)
[2017-10-10] MEDS: TRIAMTERENE-HCTZ 37.5-25MG 1 EACH TAB PO SCH ×2 (11:04→17:01)
[2017-10-10] MEDS: NYSTATIN 100,000 UNIT/GM POWD 15 GM TOPICAL SCH (11:05)
[2017-10-10] MEDS: TRIAMCINOLONE ACET 0.5% CREAM 15 GM TUBE TOPICAL SCH (11:05)
[2017-10-10 12:50] LABS: Glucose,Whole Blood 111 mg/dL (75-99)
[2017-10-10 14:24] LABS: ALT 24 U/L (9-52); AST 24 U/L (14-36); Albumin 3.3 g/dL (3.5-5.0); Alkaline Phosphatase 76 U/L (38-126); Anion Gap 10 mmol/L; Blood Urea Nitrogen 16 mg/dL (7-17); Calcium 8.8 mg/dL (8.4-10.2); Carbon Dioxide 23 mmol/L (22-30); Chloride 108 mmol/L (98-107); Glucose 128 mg/dL (74-99); Potassium 4.4 mmol/L (3.5-5.1); Sodium 141 mmol/L (137-145); Total Bilirubin 0.4 mg/dL (0.2-1.3); Total Protein 6.8 g/dL (6.3-8.2)
[2017-10-10 14:58] VITALS: BP 129/69; PULSE 75; RESP 18; TEMP 97.6
--- NOTE | 2017-10-10 15:06 | P.DS ---
Providers Date of admission: 10/07/17 23:44 Expected date of discharge: 10/10/17 Attending physician: Lilibeth Seymour Consults: 10/07/17 22:11 Consult Physician Urgent Consulting Provider: Chris Nielsen Consult Reason/Comments: Left lower extremity cellulitis Do you want consulting provider notified?: Yes 10/08/17 11:39 Consult Physician Urgent Consulting Provider: Nitesh Salgado Consult Reason/Comments: Thrombocytopenia Do you want consulting provider notified?: Yes Primary care physician: Lilibeth Estradajar [facility] Course: Discharge diagnosis 1. Left lower extremity cellulitis. IV Vancomycin for antibiotics have been ordered. Blood culture showing no growth at this time. Per Dr. Nielsen will continue Silverdene wrap and elevation of left leg. White blood cell 5.9. She has remained afebrile. Patient has been cleared for discharge and orders placed for doxycycline 100 mg by mouth twice a day for [address] Nielsen. Patient to continue Silverdene wrap and elevation to left leg and follow-up at wound care center for further treatment to right heel wound 2. Diabetes mellitus type 2 with uncontrolled blood sugars. Sugars have been consistently in the 300s since admission. Patient states she takes 100 units of long-acting insulin in the morning and 80 units long-acting insulin at night +30 units of Humalog with meals. Medical record reviewed with pharmacy and patient. Home medications ordered. Patient having episode of hypoglycemia. Patient does state she tends to eat healthier while she is in the hospital compared home. Will decrease the long-acting insulin in the morning to 50 units , will decrease long-acting insulin at night to 40 units and will decrease insulin with meals to 15 units. Patient will follow up with primary care provider on Sunday. 3. Chronic thrombocytopenia . Platelet count 66. Previous admission Dr. salgado consulted for hematology for thrombocytopenia. Per hematology thrombocytopenia related secondary to multiple comorbidities including liver disease, splenomegaly, worsening with active infection and need for antibiotics. Dr. Salgado following will continue to monitor platelet count and signs of bleeding. Platelet count 83, which is patient's baseline. Follow outpatient with Dr. salgado. Ibuprofen and aspirin have been discontinued upon discharge. 4. Morbid obesity 5. Hyperlipidemia continue Lipitor 6. Hypothyroidism continue Synthroid 7. Chronic diabetic foot ulcer of the right heel. Followed closely by infectious disease outpatient at the wound care center 8. History of bipolar depression. Home medications of Effexor and Lyrica ordered. Hospital course This is a 61-year-old female who presented to the emergency department with chief complaint of left calf pain and redness that has gotten worse over the past few days. She has a significant history of wounds on her right heel with MRSA and chronic osteomyletis that is managed by Dr. Nielsen and a history for reoccurring cellulites in both her right and left calves. She states she has had to be admitted multiple times in the past for IV antibiotics for this problem. Other significant history includes diabetes, diabetic neuropathy, chronic wounds to right foot, asthma, cancer, COPD, morbid obesity, hyperlipidemia, liver disease, musculoskeletal disorder, osteoarthritis, sleep apnea and thyroid disorder. Per nursing staff patient came in with bed bugs that were on the boot that she had on her right foot. Patient denies chest pain or shortness of breath at this time. Dr. Nielsen has been consulted. Blood culture has been ordered and is currently pending. Home medications reviewed. On 10/09/2017 patient is currently resting comfortably in bed. Dr. Nielsen following patient, recommendations for wound care. Dr. Salgado also consulted for thrombocytopenia, will continue to monitor at this time. Blood sugars better controlled this morning. On 10/10/2017 patient name cleared for discharge from infectious disease. Patient has been discharged home on doxycycline per Dr. Nielsen. Patient to follow-up outpatient at wound care center. Insulin doses change patient will follow closely her outpatient primary care provider. Patient Condition at Discharge: Stable Plan - Discharge Summary Discharge Rx Participant: Yes New Discharge Prescriptions: New Doxycycline Hyclate 100 mg PO BID #14 tab SILVER sulfADIAZINE CREAM [Silvadene Cream] 1 applic TOPICAL BID #1 tube Continue Albuterol Inhaler [Ventolin Hfa Inhaler] 1 - 2 puff INHALATION RT-QID PRN PRN Reason: Shortness Of Breath Cyclobenzaprine [Flexeril] 10 mg PO BID@1000,2100 metFORMIN HCL [Glucophage] 850 mg PO BID@1000,2100 Simvastatin [Zocor] 40 mg PO HS@2100 Cetirizine HCl 10 mg PO HS Albuterol Sulfate 2.5 mg INHALATION RT-QID PRN PRN Reason: Shortness Of Breath Venlafaxine HCl [Effexor XR] 150 mg PO DAILY@1000 HYDROcodone/APAP 10-325MG [[place] 10-325] 1 tab PO Q8H PRN #42 tab PRN Reason: Pain Nystatin 100,000Unit/gm Cream [Mycostatin Cream] 1 applic TOPICAL BID Triamterene-Hctz 37.5-25Mg [Maxzide 37.5-25] 1 tab PO BID@1000,1400 Fexofenadine HCl [Ruby Allergy] 180 mg PO DAILY Glucagon Emergency Kit 1 mg IM ONCE PRN PRN Reason: Blood Sugar - Low Pregabalin [Lyrica] 75 mg PO BID Latanoprost Ophth [Xalatan 0.005%] 1 drops BOTH EYES HS ml Diclofenac Sodium [Voltaren Gel] 2 gram TOPICAL TID Triamcinolone 0.5% Cream [Kenalog 0.5% Cream] 1 applic TOPICAL DAILY Levothyroxine Sodium [Synthroid] 100 mcg PO DAILY Multivit-Min/FA/Lycopen/Lutein [Centrum Silver Tablet] 1 tab PO DAILY Changed Insulin Glargine,Hum.rec.anlog [Basaglar Kwikpen U-100] 40 unit SQ AC-SUPPER #0 Insulin Glargine,Hum.rec.anlog [Basaglar Kwikpen U-100] 50 unit SQ AC-BRKFST #0 INSULIN LISPRO (humaLOG) [humaLOG] 15 units SQ AC-TID #0 Discontinued Aspirin EC [Ecotrin Low Dose] 81 mg PO DAILY@1000 Ibuprofen [Motrin] 800 mg PO BID Discharge Medication List Albuterol Inhaler [Ventolin Hfa Inhaler] 1 - 2 puff INHALATION RT-QID PRN [History] Cyclobenzaprine [Flexeril] 10 mg PO BID@1000,209902/18/14 [History] Simvastatin [Zocor] 40 mg PO HS@209902/18/14 [History] metFORMIN HCL [Glucophage] 850 mg PO BID@999,209902/18/14 [History] Cetirizine HCl 10 mg PO HS 10/25/14 [History] Albuterol Sulfate 2.5 mg INHALATION RT-QID PRN 12/14/15 [History] Venlafaxine HCl [Effexor XR] 150 mg PO DAILY@1000 03/26/17 [History] HYDROcodone/APAP 10-325MG [[place] 10-325] 1 tab PO Q8H PRN #42 tab 03/30/17 [Rx] Nystatin 100,000Unit/gm Cream [Mycostatin Cream] 1 applic TOPICAL BID 05/17/17 [ History] Triamterene-Hctz 37.5-25Mg [Maxzide 37.5-25] 1 tab PO BID@1000,1400 05/17/17 [ History] Fexofenadine HCl [Ruby Allergy] 180 mg PO DAILY 07/09/17 [History] Glucagon Emergency Kit 1 mg IM ONCE PRN 07/09/17 [History] Pregabalin [Lyrica] 75 mg PO BID 07/09/17 [History] Latanoprost Ophth [Xalatan 0.005%] 1 drops BOTH EYES HS ml 07/10/17 [Rx] Diclofenac Sodium [Voltaren Gel] 2 gram TOPICAL TID 10/08/17 [History] Levothyroxine Sodium [Synthroid] 100 mcg PO DAILY 10/08/17 [History] Multivit-Min/FA/Lycopen/Lutein [Centrum Silver Tablet] 1 tab PO DAILY 10/08/17 [ History] Triamcinolone 0.5% Cream [Kenalog 0.5% Cream] 1 applic TOPICAL DAILY 10/08/17 [ History] Doxycycline Hyclate 100 mg PO BID #14 tab 10/10/17 [Rx] INSULIN LISPRO (humaLOG) [humaLOG] 15 units SQ AC-TID #0 10/10/17 [Rx] Insulin Glargine,Hum.rec.anlog [Basaglar Kwikpen U-100] 40 unit SQ AC-SUPPER #0 10/10/17 [Rx] Insulin Glargine,Hum.rec.anlog [Basaglar Kwikpen U-100] 50 unit SQ AC-BRKFST #0 10/10/17 [Rx] SILVER sulfADIAZINE CREAM [Silvadene Cream] 1 applic TOPICAL BID #1 tube [Rx] Follow up Appointment(s)/Referral(s): Chris Nielsen MD [STAFF PHYSICIAN] - 1 Week (Wound Center next week) Lilibeth Seymour MD [Primary Care Provider] - 1-2 days Nitesh Salgado MD [STAFF PHYSICIAN] - 1 Week Activity/Diet/Wound Care/Special Instructions: Diet: Carb consistent Activity: As tolerated Wound care continues Silverdene wrap and elevation to left leg Right heel wound follow-up at wound care center Discharge Disposition: HOME SELF-CARE
[2017-10-10 17:27] LABS: Glucose,Whole Blood 163 mg/dL (75-99)
--- NOTE | 2017-10-10 19:46 | P.PN ---
Subjective Progress Note Date: 10/10/17 Principal diagnosis: Thrombocytopenia and cellulitis LLE Ms Baker is a pleasant WF, initially seen in consult at [facility] in 02/12. She had come in for a possible TIA, and was noted to have a low plt count in the 60- 49348 range, as well as slightly low Hgb 11-12, and WBC ( 3-4). Review of her labs did show intermittent mild cytopenias going back several months. Her coags were mildly elevated. Her w/u revealed hepatomegaly with appearance c/w fatty infiltration, and splenomegaly. Thus this was felt to be the likely cause. She had slightly abnormal light chain ratio of uncertain significance. She was cleared for discharge and as seen for her 1st OV on 07/30/13. Her plt remained stable at 62. Repeat light chain levels showed mild elevation of both with intact ratio, which is a benign finding. Thus only prn f/u was recommended. She has multiple known co-morbidities including the chronic thrombocytopenia, which decreases and worsens with other acute flairs of infection or chronic disease. Other known past medical history includes osteomyelitis from diabetic unhealing foot ulcer, complicated by MRSA, follows with Dr. Nielsen from Infectious disease. She has a known history of DM2, Hyperlipidemia, Hypothyroidism, and Morbid obesity. She has had third toe of her left foot amputated. 10/08/17 - Ms Baker presented to the emergency department with complaints of pain and increasing swelling of her left lower calf. It has worsened over the past few days. Her platlet count was 66K on admission, Ms Baker is well known to us in the past for her low platlet count, baseline around 70-90K, her past indicates she tends to drop with increased acute inflammatory issues. She has no complaints at this time other than her calf is lap machine tender and bottom of right foot has open wound. 10/10/17 - Patient seen and examined in follow-up this am, she had no acute complaints and her platlet count was up to 83. She is feeling better and undergoing treatment for her recurrent Cellulitis and non-healing wounds in lower extremities Objective - Vital Signs Vital signs: Vital Signs Temp 97.6 F 10/10/17 14:32 Pulse 75 10/10/17 14:32 Resp 18 10/10/17 14:32 BP 129/69 10/10/17 14:32 Pulse Ox 98 10/10/17 14:32 Intake & Output 10/10/17 10/10/17 10/11/17 06:59 18:59 06:59 Other: Voiding Method Toilet Incontinent # Voids 3 1 # Bowel Movements 1 - Constitutional General appearance: Present: cooperative, no acute distress, obese - EENT Eyes: Present: EOMI, PERRLA, poor dentition ENT: Present: NA/AT, normal oropharynx - Neck Details: SUpple, Trachea Midline Neck: Present: normal ROM - Respiratory Respiratory: bilateral: CTA (No increased respiratory effort) - Cardiovascular Rhythm: regular Heart sounds: normal: S1, S2 - Gastrointestinal General gastrointestinal: Present: normal bowel sounds, soft - Integumentary Integumentary Comment(s): Left Lower extremity erythema improved and dressing intact, right lower extremity dime size open area, CDI, no purulent drainage, mild odor Integumentary: Present: normal - Neurologic Neurologic Comment(s): No focal Defects Neurologic: Present: CNII-XII intact - Musculoskeletal Musculoskeletal: Present: gait normal, strength equal bilaterally - Psychiatric Psychiatric: Present: A&O x's 3, appropriate affect, intact judgment & insight - Labs CBC & Chem 7: 10/10/17 08:05 10/10/17 08:05 Labs: Abnormal Lab Results - Last 24 Hours (Table) 10/09/17 10/09/17 10/10/17 Range/Units 21:20 23:56 07:15 RDW (11.5-15.5) % Plt Count (150-450) k/uL Chloride (98-107) mmol/L Glucose (74-99) mg/dL POC Glucose (mg/dL) 124 H 161 H 120 H (75-99) mg/dL Albumin (3.5-5.0) g/dL 10/10/17 10/10/17 10/10/17 Range/Units 08:05 08:05 12:25 RDW 16.7 H (11.5-15.5) % Plt Count 83 L (150-450) k/uL Chloride 108 H (98-107) mmol/L Glucose 128 H (74-99) mg/dL POC Glucose (mg/dL) 111 H (75-99) mg/dL Albumin 3.3 L (3.5-5.0) g/dL 10/10/17 Range/Units 17:18 RDW (11.5-15.5) % Plt Count (150-450) k/uL Chloride (98-107) mmol/L Glucose (74-99) mg/dL POC Glucose (mg/dL) 163 H (75-99) mg/dL Albumin (3.5-5.0) g/dL Microbiology - Last 24 Hours (Table) 10/07/17 22:19 Blood Culture - Preliminary Blood No Growth after 48 hours Assessment and Plan Plan: Assessment and Recommendations: 1. Normocytic Anemia - Likely multifactoral to inflammation, chronic disease, iron deficiency hx - Baseline is 11 - Decreased with hydration dilutional likely - Monitor CBC 2. Acute on Chronic Thrombocytopenia - Baseline appears to be 70-90K, today 66K - Chronic and fluctuates secondary to multiple co-morbidities including underlying liver disease, splenomegaly, active infections (she has recurrent) with need for antibiotics, acute inflammatory events. - Monitor CBC and Platelet count, no intervention required unless active signs of bleeding under 50K or platelets less than 10 3. Recurrent non-healing foot ulcers. - Follows Dr. Nielsen as an outpatient - Worsens requiring hospitalizations intermittently throughout year - HX: MRSA, Osteomyelitis 4. Underlying Liver Disease - Known 5. Uncontrolled Diabetes - Per Primary Team 6. Left Lower Extremity Cellulitis 7. DISPO PLAN - Per Primary Team, stable from oncologic standpoint, follow-up in office PRN Thank you for allowing us to participate in the care of your patient, we will continue to follow along with you. Cony Rollins NP
[2017-10-10] MEDS ORDERED: VANCOMYCIN 1,500 MG in SODIUM CHLORIDE 0.9% 250 ML IVPB SCH (22:00)
--- NOTE | 2017-10-12 15:18 | CDI ---
Last Revision, March 2017 Documentation Clarification Form Date: 10/12/17 From: Gaviota Kamaljit Azalia Minaya, Sec Reporting Consultant Hours-8:30 am & 5 pm MMarti Admit Date: 10/07/2017 11:44:00 PM Patient Name: Alem Baker Visit Number: [id number] Discharge Date: 10/10/17 ATTENTION: The Clinical Documentation Specialists (CDI) and [facility] Coding Staff appreciate your assistance in clarifying documentation. Please respond to the clarification below the line at the bottom and electronically sign. The CDI & [facility] Coding staff will review the response and follow-up if needed. Please note: Queries are made part of the Legal Health Record. If you have any questions, please contact the author of this message via ITS. Dr. Lilibeth Seymour The patient has DM uncontrolled, as indicated in H&P, consults and progress note & DS. POC glucose: 448, 336, 217, 128 Glucose: 362, 330, 379, 290, 346, 304, 279, 226, 193, 166, 197, 83, 72, 124, 131 , 120,111, 163 Treatment: Cover with adult NovoLOG sliding scale Per [facility] 2016 - query the provider for clarification whether the patient has hyperglycemia or hypoglycemia so that the appropriate code may be reported - uncontrolled diabetes indicates that the patient's blood sugar is not at an acceptable level, because it is either too high or too low. 1. In order to capture the severity of Illness and necessary documentation specificity, please clarify: DM Type 1 DM Type 2 Other, please specify Unable to Determine 2. Please document any body system complications or specific manifestations related to the diabetes: Hyperglycemia Other, please specify Unable to Determine Please continue to document in your progress notes and discharge summary in order to capture severity of illness and risk of mortality. Include clinical findings that support your diagnosis. MTDD
--- NOTE | 2017-10-17 14:08 | CDI ---
Last Revision, March 2017 Documentation Clarification Form Date: From: Gaviota Kamaljit Azalia Minaya, Tobacco Cloth Reclaimer Hours-8:30 am & 5 pm MMarti Admit Date: 10/07/2017 11:44:00 PM Patient Name: Alem Baker Visit Number: [id number] Discharge Date: 10/10/17 ATTENTION: The Clinical Documentation Specialists (CDI) and [facility] Coding Staff appreciate your assistance in clarifying documentation. Please respond to the clarification below the line at the bottom and electronically sign. The CDI & [facility] Coding staff will review the response and follow-up if needed. Please note: Queries are made part of the Legal Health Record. If you have any questions, please contact the author of this message via ITS. Dr. Lilibeth Seymour The patient has diabetes mellitus uncontrolled, as indicated in H&P, consultsand progress note & DS.. POC glucose: 448, 336, 217, 128 Glucose: 362, 330, 379, 290, 346, 304, 279, 226, 193, 166, 197, 83, 72, 124, 131 , 120,111, 163 Treatment: Cover with adult NovoLOG sliding scale Per [facility] 2016 - query the provider for clarification whether the patient has hyperglycemia or hypoglycemia so that the appropriate code may be reported - uncontrolled diabetes indicates that the patient's blood sugar is not at an acceptable level, because it is either too high or too low. 1. In order to capture the severity of Illness and necessary documentation specificity, please clarify: DM Type 1 DM Type 2 Other, please specify DM type 2 Unable to Determine 2. Please document any body system complications or specific manifestations related to the diabetes: Hyperglycemia Other, please specify peripheral neuropathy Unable to Determine Please continue to document in your progress notes and discharge summary in order to capture severity of illness and risk of mortality. Include clinical findings that support your diagnosis. MTDD
--- NOTE | 2017-10-22 09:25 | CDI ---
Last Revision, March 2017 Documentation Clarification Form Date: 10/22/2017 From: Gaviota Kamaljit Azalia Minaya, Cart Attendant Hours-8:30 am & 5 pm MMarti Admit Date: 10/07/2017 11:44:00 PM Patient Name: Alem Baker Visit Number: [id number] Discharge Date: ATTENTION: The Clinical Documentation Specialists (CDI) and [facility] Coding Staff appreciate your assistance in clarifying documentation. Please respond to the clarification below the line at the bottom and electronically sign. The CDI & [facility] Coding staff will review the response and follow-up if needed. Please note: Queries are made part of the Legal Health Record. If you have any questions, please contact the author of this message via ITS. Dr. Lilibeth Seymour The patient has diabetes mellitus uncontrolled, as indicated in H&P, consultsand progress note & DS.. POC glucose: 448, 336, 217, 128 Glucose: 362, 330, 379, 290, 346, 304, 279, 226, 193, 166, 197, 83, 72, 124, 131 , 120,111, 163 Treatment: Cover with adult NovoLOG sliding scale Per [facility] 2016 - query the provider for clarification whether the patient has hyperglycemia or hypoglycemia so that the appropriate code may be reported - uncontrolled diabetes indicates that the patient's blood sugar is not at an acceptable level, because it is either too high or too low. 1. In order to capture the severity of Illness and necessary documentation specificity, please clarify: DM Type 1 DM Type 2 Other, please specify Unable to Determine 2. Please document any body system complications or specific manifestations related to the diabetes: Hyperglycemia Other, please specify Unable to Determine Please continue to document in your progress notes and discharge summary in order to capture severity of illness and risk of mortality. Include clinical findings that support your diagnosis. MTDD
== END 2017-10-10 20:11 | disposition home or self-care (01) | DRG 603 ==
LOC: EC 19:06 → 4MS4W 23:44
PROVIDERS: ADMIT Internal Medicine; ATTEND Internal Medicine
DX: L03.116 Cellulitis of left lower limb (principal); L97.419 Non-pressure chronic ulcer of right heel and midfoot with unspecified severity; M86.671 Other chronic osteomyelitis, right ankle and foot; Z68.43 Body mass index [BMI] 50.0-59.9, adult; E11.621 Type 2 diabetes mellitus with foot ulcer; D69.6 Thrombocytopenia, unspecified; E10.649 Type 1 diabetes mellitus with hypoglycemia without coma; E11.69 Type 2 diabetes mellitus with other specified complication; E11.42 Type 2 diabetes mellitus with diabetic polyneuropathy; E66.01 Morbid (severe) obesity due to excess calories; K74.60 Unspecified cirrhosis of liver; R16.1 Splenomegaly, not elsewhere classified; J44.9 Chronic obstructive pulmonary disease, unspecified; E78.5 Hyperlipidemia, unspecified; M19.91 Primary osteoarthritis, unspecified site; D64.9 Anemia, unspecified; G47.30 Sleep apnea, unspecified; F31.9 Bipolar disorder, unspecified; F60.3 Borderline personality disorder; F41.9 Anxiety disorder, unspecified; E03.9 Hypothyroidism, unspecified; H40.9 Unspecified glaucoma; Z71.3 Dietary counseling and surveillance; Z79.1 Long term (current) use of non-steroidal anti-inflammatories (NSAID); Z79.82 Long term (current) use of aspirin; Z79.890 Hormone replacement therapy; Z79.4 Long term (current) use of insulin; Z79.899 Other long term (current) drug therapy; Z99.3 Dependence on wheelchair; Z85.41 Personal history of malignant neoplasm of cervix uteri; Z90.710 Acquired absence of both cervix and uterus; Z90.49 Acquired absence of other specified parts of digestive tract; Z89.421 Acquired absence of other right toe(s); Z86.14 Personal history of Methicillin resistant Staphylococcus aureus infection; Z87.891 Personal history of nicotine dependence; Z98.51 Tubal ligation status; Z98.42 Cataract extraction status, left eye; Z98.41 Cataract extraction status, right eye; Z88.0 Allergy status to penicillin; Z82.49 Family history of ischemic heart disease and other diseases of the circulatory system; Z82.3 Family history of stroke; Z81.8 Family history of other mental and behavioral disorders
CPT/HCPCS: 36415; 80053; 80202; 82728; 83540; 83550; 85025; 87040; 96365; 96366; 99284

== ENCOUNTER 2017-11-10 21:33 | Emergency (ER) | payer OTHER ==
[2017-11-10] MEDS ORDERED: SODIUM CHLORIDE 0.9% 1,000 ML IV STA (21:51)
[2017-11-10 22:12] LABS: Glucose,Whole Blood 274 mg/dL (75-99)
--- NOTE | 2017-11-10 22:12 | ED ---
General Adult HPI - General Chief complaint: Dizziness Stated complaint: Hyperglycemic Time Seen by Provider: 11/10/17 21:44 Source: patient, RN notes reviewed Mode of arrival: wheelchair Limitations: no limitations - History of Present Illness Initial comments: This is a 61-year-old female history diabetes who states she has had elevated blood sugar all day today and since last night around 5:15 and was last one she states she has a home and had sweats dry mouth feels tired no overt fevers or chills no cough or phlegm production no dysuria hematuria no known evidence of any type of infection. No chest pain. She states she's not been able control her sugar home however. No other modifying factors at this time - Related Data Home Medications Medication Instructions Recorded Confirmed Albuterol Inhaler [Ventolin Hfa 1 - 2 puff INHALATION RT-QID PRN 02/18/14 Inhaler] Cyclobenzaprine [Flexeril] 10 mg PO BID@1000,2100 02/18/14 11/05/17 Simvastatin [Zocor] 40 mg PO HS@2100 02/18/14 11/05/17 metFORMIN HCL [Glucophage] 850 mg PO BID@1000,2100 02/18/14 11/05/17 Cetirizine HCl 10 mg PO HS 10/25/14 11/05/17 Albuterol Sulfate 2.5 mg INHALATION RT-QID PRN 12/14/15 11/05/17 Venlafaxine HCl [Effexor XR] 150 mg PO DAILY@1000 03/26/17 11/05/17 Nystatin 100,000Unit/gm Cream 1 applic TOPICAL BID 05/17/17 11/05/17 [Mycostatin Cream] Triamterene-Hctz 37.5-25Mg 1 tab PO BID@1000,1400 05/17/17 11/05/17 [Maxzide 37.5-25] Fexofenadine HCl [Ruby Allergy] 180 mg PO DAILY 07/09/17 11/05/17 Glucagon Emergency Kit 1 mg IM ONCE PRN 07/09/17 11/05/17 Pregabalin [Lyrica] 75 mg PO BID 07/09/17 11/05/17 Diclofenac Sodium [Voltaren Gel] 2 gram TOPICAL TID 10/08/17 11/05/17 Levothyroxine Sodium [Synthroid] 100 mcg PO DAILY 10/08/17 11/05/17 Multivit-Min/FA/Lycopen/Lutein 1 tab PO DAILY 10/08/17 11/05/17 [Centrum Silver Tablet] Previous Rx's Medication Instructions Recorded HYDROcodone/APAP 10-325MG [[place] 1 tab PO Q8H PRN #42 tab 03/30/17 10-325] Latanoprost Ophth [Xalatan 0.005%] 1 drops BOTH EYES HS ml 07/10/17 Doxycycline Hyclate 100 mg PO BID #14 tab 10/10/17 INSULIN LISPRO (humaLOG) [humaLOG] 15 units SQ AC-TID #0 10/10/17 Insulin Glargine,Hum.rec.anlog 40 unit SQ AC-SUPPER #0 10/10/17 [Basaglar Kwikpen U-100] Insulin Glargine,Hum.rec.anlog 50 unit SQ AC-BRKFST #0 10/10/17 [Basaglar Kwikpen U-100] Allergies Allergy/AdvReac Type Severity Reaction Status Date / Time Penicillins Allergy Anaphylaxis Verified 11/05/17 11:34 Review of Systems ROS Statement: Those systems with pertinent positive or pertinent negative responses have been documented in the HPI. ROS Other: All systems not noted in ROS Statement are negative. Past Medical History Past Medical History: Asthma, Cancer, COPD, Diabetes Mellitus, Eye Disorder, Hyperlipidemia, Liver Disease, Musculoskeletal Disorder, Neurologic Disorder, Osteoarthritis (OA), Sleep Apnea/CPAP/BIPAP, Thyroid Disorder Additional Past Medical History / Comment(s): History of osteomyelitis left #3 toe and left calf: 2004. cervical cancer (in remission.) Wound vac. Cirrhosis of the liver r/t diabetes - sees Dr. Barraza History of Any Multi-Drug Resistant Organisms: MRSA Date of last positivie culture/infection: 03/20/17 MDRO Source:: MRSA HEEL Past Surgical History: Section, Cholecystectomy, Hysterectomy, Orthopedic Surgery, Tonsillectomy, Tubal Ligation Additional Past Surgical History / Comment(s): Cataracts and laser surgery for glaucoma. Multiple I&D to left foot and lower leg. Past Anesthesia/Blood Transfusion Reactions: No Reported Reaction Past Psychological History: Anxiety, Bipolar, Depression Smoking Status: Former smoker Past Alcohol Use History: None Reported Past Drug Use History: Marijuana - Past Family History Father Family Medical History: Congestive Heart Failure (CHF), Coronary Artery Disease (CAD), Myocardial Infarction ([place]) Mother Family Medical History: Coronary Artery Disease (CAD), CVA/TIA, Dementia, Myocardial Infarction ([place]) General Exam - General Exam Comments Initial Comments: This a well-developed morbidly obese female who is awake alert oriented 3 Limitations: no limitations General appearance: alert, in no apparent distress Head exam: Present: atraumatic, normocephalic, normal inspection Eye exam: Present: normal appearance, PERRL, EOMI. Absent: scleral icterus, conjunctival injection, periorbital swelling ENT exam: Present: mucous membranes dry Neck exam: Present: normal inspection. Absent: tenderness, meningismus, lymphadenopathy Respiratory exam: Present: normal lung sounds bilaterally. Absent: respiratory distress, wheezes, rales, rhonchi, stridor Cardiovascular Exam: Present: regular rate, normal rhythm, normal heart sounds. Absent: systolic murmur, diastolic murmur, rubs, gallop, clicks GI/Abdominal exam: Present: soft, normal bowel sounds, other (Obese abdomen). Absent: distended, tenderness, guarding, rebound, rigid Extremities exam: Present: normal inspection, full ROM, normal capillary refill. Absent: tenderness, pedal edema, joint swelling, calf tenderness Back exam: Present: normal inspection Neurological exam: Present: alert, oriented X3, CN II-XII intact Psychiatric exam: Present: normal affect, normal mood Skin exam: Present: warm, dry, intact, normal color. Absent: rash Course Vital Signs 11/10/17 11/10/17 21:34 22:40 Temperature 98.2 F Pulse Rate 80 77 Respiratory 18 17 Rate Blood Pressure 141/65 128/52 O2 Sat by Pulse 96 94 L Oximetry EKG Findings - EKG Results: EKG: interpreted by ERMD, sinus rhythm (Sinus rhythm rate is 79. Interval 164 QRS 92 QT since QTC 380/444 left exodeviation no acute ST-T wave changes.) Medical Decision Making - Medical Decision Making I did discuss the findings with the patient blood sugar has improved markedly with IV fluids patient will be discharged she is follow-up with her doctor return when necessary - Lab Data Result diagrams: 11/10/17 20:10 08/11/18 20:10 Lab Results 11/10/17 11/10/17 11/10/17 Range/Units 20:10 20:10 20:10 WBC 6.6 (3.8-10.6) k/uL RBC 4.41 (3.80-5.40) m/uL Hgb 11.9 (11.4-16.0) gm/dL Hct 37.3 (34.0-46.0) % MCV 84.6 (80.0-100.0) fL MCH 27.1 (25.0-35.0) pg MCHC 32.0 (31.0-37.0) g/dL RDW 16.2 H (11.5-15.5) % Plt Count 90 L (150-450) k/uL Neutrophils % 71 % Lymphocytes % 17 % Monocytes % 5 % Eosinophils % 4 % Basophils % 1 % Neutrophils # 4.7 (1.3-7.7) k/uL Lymphocytes # 1.1 (1.0-4.8) k/uL Monocytes # 0.4 (0-1.0) k/uL Eosinophils # 0.3 (0-0.7) k/uL Basophils # 0.1 (0-0.2) k/uL Manual Slide Review Performed Poikilocytosis Slight Anisocytosis Slight Anisocytosis (manual) Present Sodium 139 (137-145) mmol/L Potassium 4.4 (3.5-5.1) mmol/L Chloride 106 (98-107) mmol/L Carbon Dioxide 24 (22-30) mmol/L Anion Gap 9 mmol/L BUN 18 H (7-17) mg/dL Creatinine 0.70 (0.52-1.04) mg/dL Est GFR (CKD-EPI)AfAm >90 (>60 ml/min/1.73 sqM) Est GFR (CKD-EPI)NonAf >90 (>60 ml/min/1.73 sqM) Glucose 280 H (74-99) mg/dL POC Glucose (mg/dL) (75-99) mg/dL POC Glu Apiculturist ID Calcium 9.3 (8.4-10.2) mg/dL Magnesium 1.6 (1.6-2.3) mg/dL Total Bilirubin 0.6 (0.2-1.3) mg/dL AST 26 (14-36) U/L ALT 32 (9-52) U/L Alkaline Phosphatase 94 (38-126) U/L Total Creatine Kinase 48 (30-135) U/L CK-MB (CK-2) 1.2 (0.0-2.4) ng/mL CK-MB (CK-2) Rel Index 2.5 Troponin I <0.012 (0.000-0.034) ng/mL Total Protein 7.2 (6.3-8.2) g/dL Albumin 3.6 (3.5-5.0) g/dL Amylase 43 (30-110) U/L Lipase 518 H (23-300) U/L 11/10/17 Range/Units 21:53 WBC (3.8-10.6) k/uL RBC (3.80-5.40) m/uL Hgb (11.4-16.0) gm/dL Hct (34.0-46.0) % MCV (80.0-100.0) fL MCH (25.0-35.0) pg MCHC (31.0-37.0) g/dL RDW (11.5-15.5) % Plt Count (150-450) k/uL Neutrophils % % Lymphocytes % % Monocytes % % Eosinophils % % Basophils % % Neutrophils # (1.3-7.7) k/uL Lymphocytes # (1.0-4.8) k/uL Monocytes # (0-1.0) k/uL Eosinophils # (0-0.7) k/uL Basophils # (0-0.2) k/uL Manual Slide Review Poikilocytosis Anisocytosis Anisocytosis (manual) Sodium (137-145) mmol/L Potassium (3.5-5.1) mmol/L Chloride (98-107) mmol/L Carbon Dioxide (22-30) mmol/L Anion Gap mmol/L BUN (7-17) mg/dL Creatinine (0.52-1.04) mg/dL Est GFR (CKD-EPI)AfAm (>60 ml/min/1.73 sqM) Est GFR (CKD-EPI)NonAf (>60 ml/min/1.73 sqM) Glucose (74-99) mg/dL POC Glucose (mg/dL) 274 H (75-99) mg/dL POC Glu Apiculturist ID Alondra Fried Calcium (8.4-10.2) mg/dL Magnesium (1.6-2.3) mg/dL Total Bilirubin (0.2-1.3) mg/dL AST (14-36) U/L ALT (9-52) U/L Alkaline Phosphatase (38-126) U/L Total Creatine Kinase (30-135) U/L CK-MB (CK-2) (0.0-2.4) ng/mL CK-MB (CK-2) Rel Index Troponin I (0.000-0.034) ng/mL Total Protein (6.3-8.2) g/dL Albumin (3.5-5.0) g/dL Amylase (30-110) U/L Lipase (23-300) U/L - Radiology Data Radiology results: report reviewed (I did review the imaging and report no acute findings.), image reviewed Disposition Clinical Impression: Hyperglycemia, Dehydration Disposition: HOME SELF-CARE Condition: Good Instructions: Diabetic Hyperglycemia (ED), Dehydration (ED) Is patient prescribed a controlled substance at d/c from ED?: No Referrals: Lilibeth Seymour MD [Primary Care Provider] - 1-2 days
[2017-11-10 22:27] LABS: Anisocytosis Slight; Basophils # (A) 0.1 k/uL (0-0.2); Basophils % (A) 1 %; Eosinophils # (A) 0.3 k/uL (0-0.7); Eosinophils % (A) 4 %; HCT 37.3 % (34.0-46.0); HGB 11.9 gm/dL (11.4-16.0); Lymphocytes # (A) 1.1 k/uL (1.0-4.8); Lymphocytes % (A) 17 %; MCH 27.1 pg (25.0-35.0); MCV 84.6 fL (80.0-100.0); Mean Platelet Volume 8.8; Monocytes # (A) 0.4 k/uL (0-1.0); Monocytes % (A) 5 %; Neutrophils # (A) 4.7 k/uL (1.3-7.7); Neutrophils % (A) 71 %; Poikilocytosis Slight; RBC 4.41 m/uL (3.80-5.40); RDW 16.2 % (11.5-15.5); WBC 6.6 k/uL (3.8-10.6)
[2017-11-10 22:28] LABS: Platelet Count 90 k/uL (150-450)
[2017-11-10 22:35] LABS: ALT 32 U/L (9-52); AST 26 U/L (14-36); Albumin 3.6 g/dL (3.5-5.0); Alkaline Phosphatase 94 U/L (38-126); Amylase 43 U/L (30-110); Anion Gap 9 mmol/L; Anisocytosis (M) Present; Blood Urea Nitrogen 18 mg/dL (7-17); Calcium 9.3 mg/dL (8.4-10.2); Carbon Dioxide 24 mmol/L (22-30); Chloride 106 mmol/L (98-107); Glucose 280 mg/dL (74-99); Lipase 518 U/L (23-300); Magnesium 1.6 mg/dL (1.6-2.3); Potassium 4.4 mmol/L (3.5-5.1); Sodium 139 mmol/L (137-145); Total Bilirubin 0.6 mg/dL (0.2-1.3); Total Protein 7.2 g/dL (6.3-8.2)
[2017-11-10 22:46] LABS: Creatine Kinase 48 U/L (30-135)
[2017-11-10 22:59] LABS: Creatine Kinase MB 1.2 ng/mL (0.0-2.4); Troponin I <0.012 ng/mL (0.000-0.034)
--- NOTE | 2017-11-10 23:39 | XR ---
EXAMINATION TYPE: XR chest 2V DATE OF EXAM: 11/10/2017 COMPARISON: 05/24/2017 HISTORY: Chest pain. Cough TECHNIQUE: Frontal and lateral views of the chest are obtained. FINDINGS: Heart and mediastinum are normal. Lungs are clear. Diaphragm is normal. There are chest le ads. Bony thorax is intact. IMPRESSION: Normal chest. No change.
[2017-11-10] MEDS ORDERED: INSULIN REGULAR 100 UNIT/ML VIAL IV ONE (23:46)
[2017-11-11 00:04] LABS: Glucose,Whole Blood 210 mg/dL (75-99)
[2017-11-11 00:40] VITALS: BP 116/44; PULSE 81; RESP 18; TEMP 98.1
[2017-11-11] MEDS ORDERED: INSULIN REGULAR 100 UNIT/ML VIAL IV STA (00:42)
[2017-11-12 13:38] LABS: Hemoglobin A1C 9.2 % (4.0-6.0)
== END 2017-11-11 00:49 | disposition home or self-care (01) ==
LOC: EC 21:33
DX: E11.65 Type 2 diabetes mellitus with hyperglycemia (principal); E86.0 Dehydration; E66.01 Morbid (severe) obesity due to excess calories; J44.9 Chronic obstructive pulmonary disease, unspecified; E78.5 Hyperlipidemia, unspecified; E07.9 Disorder of thyroid, unspecified; M19.90 Unspecified osteoarthritis, unspecified site; G47.30 Sleep apnea, unspecified; F31.9 Bipolar disorder, unspecified; F41.9 Anxiety disorder, unspecified; Z79.1 Long term (current) use of non-steroidal anti-inflammatories (NSAID); Z79.84 Long term (current) use of oral hypoglycemic drugs; Z79.899 Other long term (current) drug therapy; Z88.0 Allergy status to penicillin; Z86.14 Personal history of Methicillin resistant Staphylococcus aureus infection; Z85.41 Personal history of malignant neoplasm of cervix uteri; Z99.89 Dependence on other enabling machines and devices; Z87.891 Personal history of nicotine dependence; Z90.710 Acquired absence of both cervix and uterus; Z68.43 Body mass index [BMI] 50.0-59.9, adult
CPT/HCPCS: 36415; 71046; 80053; 82150; 82550; 82553; 83036; 83690; 83735; 84484; 85025; 93005; 96360; 96361; 99284

== ENCOUNTER 2017-11-13 21:38 | Emergency (ER) | payer OTHER ==
[2017-11-13 21:55] VITALS: RESP 18; TEMP 98.4
--- NOTE | 2017-11-13 22:14 | ED ---
Skin/Abscess/FB HPI - General Chief complaint: Skin/Abscess/Foreign Body Stated complaint: DM ulcer on foot Time Seen by Provider: 11/13/17 21:56 Source: patient Mode of arrival: wheelchair Limitations: no limitations - History of Present Illness Initial comments: This patient is a 61-year-old woman with history of diabetes and previous diabetic foot ulcer, who presents to have evaluation of a new ulcer that was noticed to the plantar aspect of her right heel this evening. The patient states she had been using some foot pads and when they checked her foot tonight they noticed that there was a sore developing to the plantar aspect of the foot. Patient denies any systemic symptoms, including no fever or chills, palpitations, chest pain, dyspnea, diaphoresis or other symptoms. MD complaint: other Onset/Timin -: hour(s) Tetanus Up to Date: yes Location: R foot Severity: mild Consistency: constant Improves with: none Worsens with: none Context: other (Pressure) Associated symptoms: denies other symptoms Treatments Prior to Arrival: bandages - Related Data Home Medications Medication Instructions Recorded Confirmed Albuterol Inhaler [Ventolin Hfa 1 - 2 puff INHALATION RT-QID PRN 02/18/14 Inhaler] Cyclobenzaprine [Flexeril] 10 mg PO BID@1000,209902/18/14 11/13/17 Simvastatin [Zocor] 40 mg PO HS@209902/18/14 11/13/17 metFORMIN HCL [Glucophage] 850 mg PO BID@1000,2100 02/18/14 11/13/17 Triamterene-Hctz 37.5-25Mg 1 tab PO BID@1000,1400 05/17/17 11/13/17 [Maxzide 37.5-25] Fexofenadine HCl [Ruby Allergy] 180 mg PO DAILY 07/09/17 11/13/17 Glucagon Emergency Kit 1 mg IM ONCE PRN 07/09/17 11/13/17 Levothyroxine Sodium [Synthroid] 100 mcg PO DAILY 10/08/17 11/13/17 Aspirin EC [Ecotrin Low Dose] 81 mg PO DAILY 11/13/17 11/13/17 Previous Rx's Medication Instructions Recorded HYDROcodone/APAP 10-325MG [[place] 1 tab PO Q8H PRN #42 tab 03/30/17 10-325] Latanoprost Ophth [Xalatan 0.005%] 1 drops BOTH EYES HS ml 07/10/17 INSULIN LISPRO (humaLOG) [humaLOG] 15 units SQ AC-TID #0 10/10/17 Insulin Glargine,Hum.rec.anlog 40 unit SQ AC-SUPPER #0 10/10/17 [Basaglar Kwikpen U-100] Insulin Glargine,Hum.rec.anlog 50 unit SQ AC-BRKFST #0 10/10/17 [Basaglar Kwikpen U-100] Sulfamethox-Tmp 800-160Mg [Bactrim 2 each PO Q12HR #28 tab 11/13/17 Ds] Allergies Allergy/AdvReac Type Severity Reaction Status Date / Time Penicillins Allergy Anaphylaxis Verified 11/13/17 22:11 Review of Systems ROS Statement: Those systems with pertinent positive or pertinent negative responses have been documented in the HPI. ROS Other: All systems not noted in ROS Statement are negative. Constitutional: Denies: fever, chills, weakness Respiratory: Denies: cough, dyspnea Cardiovascular: Denies: chest pain, palpitations, edema Gastrointestinal: Denies: nausea, vomiting Musculoskeletal: Denies: back pain Skin: Reports: as per HPI, lesions (Foot ulcer) Neurological: Denies: headache, weakness Past Medical History Past Medical History: Asthma, Cancer, COPD, Diabetes Mellitus, Eye Disorder, Hyperlipidemia, Liver Disease, Musculoskeletal Disorder, Neurologic Disorder, Osteoarthritis (OA), Sleep Apnea/CPAP/BIPAP, Thyroid Disorder Additional Past Medical History / Comment(s): History of osteomyelitis left #3 toe and left calf: 2004. cervical cancer (in remission.) Wound vac. Cirrhosis of the liver r/t diabetes - sees Dr. Barraza History of Any Multi-Drug Resistant Organisms: MRSA Date of last positivie culture/infection: 03/20/17 MDRO Source:: MRSA HEEL Past Surgical History: Section, Cholecystectomy, Hysterectomy, Orthopedic Surgery, Tonsillectomy, Tubal Ligation Additional Past Surgical History / Comment(s): Cataracts and laser surgery for glaucoma. Multiple I&D to left foot and lower leg. Past Anesthesia/Blood Transfusion Reactions: No Reported Reaction Past Psychological History: Anxiety, Bipolar, Depression Smoking Status: Former smoker Past Alcohol Use History: None Reported Past Drug Use History: Marijuana - Past Family History Father Family Medical History: Congestive Heart Failure (CHF), Coronary Artery Disease (CAD), Myocardial Infarction ([place]) Mother Family Medical History: Coronary Artery Disease (CAD), CVA/TIA, Dementia, Myocardial Infarction ([place]) General Exam Limitations: no limitations General appearance: alert, in no apparent distress, obese Head exam: Present: normocephalic Respiratory exam: Present: normal lung sounds bilaterally. Absent: respiratory distress, wheezes, rales, rhonchi, stridor Cardiovascular Exam: Present: regular rate, normal rhythm, normal heart sounds. Absent: systolic murmur, diastolic murmur, rubs, gallop Skin exam: Present: warm, dry, normal color, other (There does appear to be a pressure ulcer to the plantar aspect of the right foot below the calcaneus. There is no drainage currently. No surrounding inflammation or erythema.) Course Vital Signs 11/13/17 21:51 Temperature 98.4 F Pulse Rate 70 Respiratory 18 Rate Blood Pressure 112/64 O2 Sat by Pulse 99 Oximetry Medical Decision Making - Lab Data Result diagrams: 11/13/17 22:18 11/13/17 22:18 Lab Results 11/13/17 11/13/17 11/13/17 Range/Units 22:18 22:18 22:18 WBC 6.3 (3.8-10.6) k/uL RBC 4.43 (3.80-5.40) m/uL Hgb 12.5 (11.4-16.0) gm/dL Hct 38.1 (34.0-46.0) % MCV 86.1 (80.0-100.0) fL MCH 28.2 (25.0-35.0) pg MCHC 32.7 (31.0-37.0) g/dL RDW 16.1 H (11.5-15.5) % Plt Count 86 L (150-450) k/uL Neutrophils % 69 % Lymphocytes % 21 % Monocytes % 5 % Eosinophils % 4 % Basophils % 0 % Neutrophils # 4.4 (1.3-7.7) k/uL Lymphocytes # 1.3 (1.0-4.8) k/uL Monocytes # 0.3 (0-1.0) k/uL Eosinophils # 0.3 (0-0.7) k/uL Basophils # 0.0 (0-0.2) k/uL Polychromasia Present Hypochromasia Slight Poikilocytosis Slight Anisocytosis Slight Sodium 139 (137-145) mmol/L Potassium 4.2 (3.5-5.1) mmol/L Chloride 104 (98-107) mmol/L Carbon Dioxide 29 (22-30) mmol/L Anion Gap 6 mmol/L BUN 13 (7-17) mg/dL Creatinine 0.70 (0.52-1.04) mg/dL Est GFR (CKD-EPI)AfAm >90 (>60 ml/min/1.73 sqM) Est GFR (CKD-EPI)NonAf >90 (>60 ml/min/1.73 sqM) Glucose 288 H (74-99) mg/dL Plasma Lactic Acid Marquise 1.2 (0.7-2.0) mmol/L Calcium 8.8 (8.4-10.2) mg/dL C-Reactive Protein 21.5 H (<10.0) mg/L Acetone, Qual Negative (Negative) Disposition Clinical Impression: Diabetic foot ulcer Disposition: HOME SELF-CARE Condition: Good Instructions: Diabetic Foot Ulcers (ED), Foot Care for People with Diabetes (ED ) Prescriptions: Sulfamethox-Tmp 800-160Mg [Bactrim Ds] 2 each PO Q12HR #28 tab Is patient prescribed a controlled substance at d/c from ED?: No Referrals: Lilibeth Seymour MD [Primary Care Provider] - 1-2 days
[2017-11-13 22:29] LABS: Anisocytosis Slight; Basophils % (A) 0 %; Eosinophils # (A) 0.3 k/uL (0-0.7); Eosinophils % (A) 4 %; HCT 38.1 % (34.0-46.0); HGB 12.5 gm/dL (11.4-16.0); Hypochromasia Slight; Lymphocytes # (A) 1.3 k/uL (1.0-4.8); Lymphocytes % (A) 21 %; MCH 28.2 pg (25.0-35.0); MCHC 32.7 g/dL (31.0-37.0); MCV 86.1 fL (80.0-100.0); Mean Platelet Volume 8.8; Monocytes # (A) 0.3 k/uL (0-1.0); Monocytes % (A) 5 %; Neutrophils # (A) 4.4 k/uL (1.3-7.7); Neutrophils % (A) 69 %; Poikilocytosis Slight; RBC 4.43 m/uL (3.80-5.40); RDW 16.1 % (11.5-15.5); WBC 6.3 k/uL (3.8-10.6)
[2017-11-13 22:44] LABS: Anion Gap 6 mmol/L; Blood Urea Nitrogen 13 mg/dL (7-17); C Reactive Protein 21.5 mg/L (<10.0); Calcium 8.8 mg/dL (8.4-10.2); Carbon Dioxide 29 mmol/L (22-30); Chloride 104 mmol/L (98-107); Glucose 288 mg/dL (74-99); Potassium 4.2 mmol/L (3.5-5.1); Sodium 139 mmol/L (137-145)
[2017-11-13 22:48] LABS: Polychromasia Present
[2017-11-13 22:49] LABS: Platelet Count 86 k/uL (150-450)
[2017-11-13 23:52] VITALS: BP 118/78; PULSE 80
== END 2017-11-13 23:51 | disposition home or self-care (01) ==
LOC: EC 21:38
DX: E11.621 Type 2 diabetes mellitus with foot ulcer (principal); J44.9 Chronic obstructive pulmonary disease, unspecified; E78.5 Hyperlipidemia, unspecified; E07.9 Disorder of thyroid, unspecified; G47.30 Sleep apnea, unspecified; E11.69 Type 2 diabetes mellitus with other specified complication; M86.9 Osteomyelitis, unspecified; Z87.891 Personal history of nicotine dependence; Z86.14 Personal history of Methicillin resistant Staphylococcus aureus infection; Z99.89 Dependence on other enabling machines and devices; Z85.41 Personal history of malignant neoplasm of cervix uteri; Z79.84 Long term (current) use of oral hypoglycemic drugs; Z79.82 Long term (current) use of aspirin; Z79.899 Other long term (current) drug therapy; Z88.0 Allergy status to penicillin
CPT/HCPCS: 36415; 80048; 82009; 83605; 85025; 86140; 99283

== ENCOUNTER 2017-12-17 10:23 | Emergency (ER) | payer OTHER ==
--- NOTE | 2017-12-17 12:39 | ED ---
General Adult HPI - General Chief complaint: Skin/Abscess/Foreign Body Stated complaint: Poss infection Time Seen by Provider: 12/17/17 12:17 Source: patient, RN notes reviewed Mode of arrival: wheelchair Limitations: physical limitation - History of Present Illness Initial comments: Patient is a pleasant 62-year-old female presenting to the emergency department with rash. Patient does have chronic fungal infection under her skin fold of her lower abdomen. Patient has been on nystatin cream for months. Patient does have history of previous MRSA infection of her toe. Patient states rash has been more itchy and burning recently. No fevers. - Related Data Home Medications Medication Instructions Recorded Confirmed Albuterol Inhaler [Ventolin Hfa 1 - 2 puff INHALATION RT-QID PRN 02/18/14 Inhaler] Cyclobenzaprine [Flexeril] 10 mg PO BID@1000,2100 02/18/14 11/13/17 Simvastatin [Zocor] 40 mg PO HS@2100 02/18/14 11/13/17 metFORMIN HCL [Glucophage] 850 mg PO BID@1000,2100 02/18/14 11/13/17 Triamterene-Hctz 37.5-25Mg 1 tab PO BID@1000,1400 05/17/17 11/13/17 [Maxzide 37.5-25] Fexofenadine HCl [Ruby Allergy] 180 mg PO DAILY 07/09/17 11/13/17 Glucagon Emergency Kit 1 mg IM ONCE PRN 07/09/17 11/13/17 Levothyroxine Sodium [Synthroid] 100 mcg PO DAILY 10/08/17 11/13/17 Aspirin EC [Ecotrin Low Dose] 81 mg PO DAILY 11/13/17 11/13/17 Previous Rx's Medication Instructions Recorded HYDROcodone/APAP 10-325MG [[place] 1 tab PO Q8H PRN #42 tab 03/30/17 10-325] Latanoprost Ophth [Xalatan 0.005%] 1 drops BOTH EYES HS ml 07/10/17 INSULIN LISPRO (humaLOG) [humaLOG] 15 units SQ AC-TID #0 10/10/17 Insulin Glargine,Hum.rec.anlog 40 unit SQ AC-SUPPER #0 10/10/17 [Basaglar Kwikpen U-100] Insulin Glargine,Hum.rec.anlog 50 unit SQ AC-BRKFST #0 10/10/17 [Basaglar Boniikpen U-100] Sulfamethox-Tmp 800-160Mg [Bactrim 2 each PO Q12HR #28 tab 11/13/17 Ds] Miconazole Nitrate [Lotrimin AF 1 applic TOPICAL BID #1 dispenser 12/17/17 Powder] Sulfamethox-Tmp 800-160Mg [Bactrim 1 each PO Q12HR #20 tab 12/17/17 DS 800-160 mg] predniSONE 20 mg PO DAILY #4 tab 12/17/17 Allergies Allergy/AdvReac Type Severity Reaction Status Date / Time Penicillins Allergy Anaphylaxis Verified 12/17/17 10:43 Review of Systems ROS Statement: Those systems with pertinent positive or pertinent negative responses have been documented in the HPI. ROS Other: All systems not noted in ROS Statement are negative. Constitutional: Denies: fever Eyes: Denies: eye pain ENT: Denies: ear pain Respiratory: Denies: cough Cardiovascular: Denies: chest pain Endocrine: Denies: fatigue Gastrointestinal: Denies: abdominal pain Genitourinary: Denies: dysuria Musculoskeletal: Denies: back pain Skin: Reports: rash Neurological: Denies: weakness Past Medical History Past Medical History: Asthma, Cancer, COPD, Diabetes Mellitus, Eye Disorder, Hyperlipidemia, Liver Disease, Musculoskeletal Disorder, Neurologic Disorder, Osteoarthritis (OA), Sleep Apnea/CPAP/BIPAP, Thyroid Disorder Additional Past Medical History / Comment(s): History of osteomyelitis left #3 toe and left calf: 2004. cervical cancer (in remission.) Wound vac. Cirrhosis of the liver r/t diabetes - sees Dr. Barraza History of Any Multi-Drug Resistant Organisms: MRSA Date of last positivie culture/infection: 03/20/17 MDRO Source:: MRSA HEEL Past Surgical History: Section, Cholecystectomy, Hysterectomy, Orthopedic Surgery, Tonsillectomy, Tubal Ligation Additional Past Surgical History / Comment(s): Cataracts and laser surgery for glaucoma. Multiple I&D to left foot and lower leg. Past Anesthesia/Blood Transfusion Reactions: No Reported Reaction Past Psychological History: Anxiety, Bipolar, Depression Smoking Status: Former smoker Past Alcohol Use History: None Reported Past Drug Use History: Marijuana - Past Family History Father Family Medical History: Congestive Heart Failure (CHF), Coronary Artery Disease (CAD), Myocardial Infarction ([place]) Mother Family Medical History: Coronary Artery Disease (CAD), CVA/TIA, Dementia, Myocardial Infarction ([place]) General Exam Limitations: physical limitation General appearance: alert, in no apparent distress, obese Head exam: Present: atraumatic Eye exam: Present: normal appearance Respiratory exam: Present: normal lung sounds bilaterally Cardiovascular Exam: Present: regular rate, normal rhythm GI/Abdominal exam: Present: soft. Absent: tenderness Neurological exam: Present: alert Skin exam: Present: rash (Patient does have large area of fungal appearing rash under her pannus. There is minimal skin breakdown on the left side. No significant discharge.) Course Vital Signs 12/17/17 10:41 Temperature 98.2 F Pulse Rate 77 Respiratory 20 Rate Blood Pressure 106/56 O2 Sat by Pulse 98 Oximetry Medical Decision Making - Medical Decision Making Rash does appear to be mostly chronic. There is some mild areas of skin breakdown/excoriation. Patient will be added with antibiotics for possibility of secondary infection. Patient will be provided steroids for a couple of days for inflammation. Patient is advised if symptoms continue or worsen to see dermatology. Disposition Clinical Impression: Tinea corporis Disposition: HOME SELF-CARE Condition: Stable Instructions: Tinea Corporis (ED), Skin Yeast Infection (ED) Additional Instructions: Please follow-up primary care physician within the next week for recheck. If symptoms continue consider dermatology evaluation. Return for increased rash, redness, skin breakdown, fevers, worsening symptoms or other concerns. Prescriptions: Miconazole Nitrate [Lotrimin AF Powder] 1 applic TOPICAL BID #1 dispenser predniSONE 20 mg PO DAILY #4 tab Sulfamethox-Tmp 800-160Mg [Bactrim DS 800-160 mg] 1 each PO Q12HR #20 tab Is patient prescribed a controlled substance at d/c from ED?: No Referrals: Lilibeth Seymour MD [Primary Care Provider] - 1-2 days Time of Disposition: 12:40
[2017-12-17 12:54] VITALS: BP 164/80; PULSE 75; RESP 18; TEMP 98.6
== END 2017-12-17 12:53 | disposition home or self-care (01) ==
LOC: EC 10:23 → EEVIPCON 10:23 → EC 12:53
DX: B35.4 Tinea corporis (principal); J44.9 Chronic obstructive pulmonary disease, unspecified; E11.9 Type 2 diabetes mellitus without complications; E78.5 Hyperlipidemia, unspecified; G47.30 Sleep apnea, unspecified; Z79.82 Long term (current) use of aspirin; Z79.84 Long term (current) use of oral hypoglycemic drugs; Z79.899 Other long term (current) drug therapy; Z88.0 Allergy status to penicillin; Z87.891 Personal history of nicotine dependence
CPT/HCPCS: 99282

== ENCOUNTER 2018-02-12 23:57 | Inpatient (IN) | payer OTHER ==
--- NOTE | 2018-02-13 01:24 | ED ---
Extremity Problem HPI - General Chief complaint: Extremity Problem,Nontraumatic Stated complaint: Infection Time Seen by Provider: 02/13/18 01:23 Source: patient, RN notes reviewed, old records reviewed Mode of arrival: wheelchair Limitations: no limitations - History of Present Illness Initial comments: This is a 62-year-old female the ER for evaluation of heel pain left heel pain, pain is been increasing, his history of foot ulcer on the foot as well as increasing erythema of her toes. Patient is following up with mine engineer he states symptoms are getting progressively worse, emergency in. Patient denies fever. No recent change in medications MD Complaint: extremity pain -: days(s) Location: left, toe (Edema) -: Yes myalgia, Yes fever Radiation: none Severity scale (1-10): 3 Quality: aching Consistency: constant Improves with: nothing Worsens with: nothing Associated Symptoms: fever - Related Data Home Medications Medication Instructions Recorded Confirmed metFORMIN HCL [Glucophage] 850 mg PO BID@1000,2100 02/18/14 02/13/18 Levothyroxine Sodium [Synthroid] 100 mcg PO DAILY 10/08/17 02/13/18 INSULIN LISPRO (humaLOG) [humaLOG] 30 units SQ TID 02/13/18 02/13/18 Insulin Glargine [Lantus] 100 unit SQ BID 02/13/18 02/13/18 Previous Rx's Medication Instructions Recorded HYDROcodone/APAP 10-325MG [[place] 1 tab PO Q8H PRN #42 tab 03/30/17 10-325] Allergies Allergy/AdvReac Type Severity Reaction Status Date / Time Penicillins Allergy Anaphylaxis Verified 12/17/17 10:43 Review of Systems ROS Statement: Those systems with pertinent positive or pertinent negative responses have been documented in the HPI. ROS Other: All systems not noted in ROS Statement are negative. Past Medical History Past Medical History: Asthma, Cancer, COPD, Diabetes Mellitus, Eye Disorder, Hyperlipidemia, Liver Disease, Musculoskeletal Disorder, Neurologic Disorder, Osteoarthritis (OA), Sleep Apnea/CPAP/BIPAP, Thyroid Disorder Additional Past Medical History / Comment(s): History of osteomyelitis left #3 toe and left calf: 2004. cervical cancer (in remission.) Wound vac. Cirrhosis of the liver r/t diabetes - sees Dr. Barraza History of Any Multi-Drug Resistant Organisms: MRSA Date of last positivie culture/infection: 03/20/17 MDRO Source:: MRSA HEEL Past Surgical History: Section, Cholecystectomy, Hysterectomy, Orthopedic Surgery, Tonsillectomy, Tubal Ligation Additional Past Surgical History / Comment(s): Cataracts and laser surgery for glaucoma. Multiple I&D to left foot and lower leg. Past Anesthesia/Blood Transfusion Reactions: No Reported Reaction Past Psychological History: Anxiety, Bipolar, Depression Smoking Status: Former smoker Past Alcohol Use History: None Reported Past Drug Use History: Marijuana - Past Family History Father Family Medical History: Congestive Heart Failure (CHF), Coronary Artery Disease (CAD), Myocardial Infarction ([place]) Mother Family Medical History: Coronary Artery Disease (CAD), CVA/TIA, Dementia, Myocardial Infarction ([place]) General Exam - General Exam Comments Initial Comments: Patient does have chronic ulcer of right heel with surrounding erythema and cellulitis and toe cellulitis Limitations: no limitations General appearance: alert, in no apparent distress Head exam: Present: atraumatic, normocephalic, normal inspection Eye exam: Present: normal appearance, PERRL, EOMI. Absent: scleral icterus, conjunctival injection, periorbital swelling ENT exam: Present: normal exam, mucous membranes moist Neck exam: Present: normal inspection. Absent: tenderness, meningismus, lymphadenopathy Respiratory exam: Present: normal lung sounds bilaterally. Absent: respiratory distress, wheezes, rales, rhonchi, stridor Cardiovascular Exam: Present: regular rate, normal rhythm, normal heart sounds. Absent: systolic murmur, diastolic murmur, rubs, gallop, clicks GI/Abdominal exam: Present: soft, normal bowel sounds. Absent: distended, tenderness, guarding, rebound, rigid Extremities exam: Present: normal inspection, full ROM, normal capillary refill. Absent: tenderness, pedal edema, joint swelling, calf tenderness Back exam: Present: normal inspection Neurological exam: Present: alert, oriented X3, CN II-XII intact Psychiatric exam: Present: normal affect, normal mood Skin exam: Present: warm, dry, intact, normal color. Absent: rash Course Vital Signs 02/13/18 02/13/18 02/13/18 00:30 03:16 04:29 Temperature 98.4 F 98.0 F Pulse Rate 80 85 87 Respiratory 20 18 18 Rate Blood Pressure 165/67 146/32 129/65 O2 Sat by Pulse 100 100 100 Oximetry 02/13/18 05:16 Temperature Pulse Rate 86 Respiratory 18 Rate Blood Pressure 148/70 O2 Sat by Pulse 97 Oximetry Medical Decision Making - Medical Decision Making 8-year-old female the ER for evaluation of diabetic foot ulcer, will admit for IV antibiotics and evaluation by wound care - Lab Data Result diagrams: 02/13/18 02:09 02/13/18 02:09 Lab Results 02/13/18 02/13/18 02/13/18 Range/Units 02:09 02:09 02:09 WBC 6.4 (3.8-10.6) k/uL RBC 4.64 (3.80-5.40) m/uL Hgb 13.0 (11.4-16.0) gm/dL Hct 40.2 (34.0-46.0) % MCV 86.7 D (80.0-100.0) fL MCH 28.1 (25.0-35.0) pg MCHC 32.4 (31.0-37.0) g/dL RDW 15.9 H (11.5-15.5) % Plt Count 74 L (150-450) k/uL Neutrophils % 68 % Lymphocytes % 19 % Monocytes % 5 % Eosinophils % 5 % Basophils % 1 % Neutrophils # 4.4 (1.3-7.7) k/uL Lymphocytes # 1.2 (1.0-4.8) k/uL Monocytes # 0.3 (0-1.0) k/uL Eosinophils # 0.3 (0-0.7) k/uL Basophils # 0.0 (0-0.2) k/uL Hypochromasia Slight Poikilocytosis Slight PT 11.5 (9.0-12.0) sec INR 1.2 H (<1.2) APTT 26.7 (22.0-30.0) sec Sodium 136 L (137-145) mmol/L Potassium 4.2 (3.5-5.1) mmol/L Chloride 105 (98-107) mmol/L Carbon Dioxide 24 (22-30) mmol/L Anion Gap 7 mmol/L BUN 17 (7-17) mg/dL Creatinine 0.56 (0.52-1.04) mg/dL Est GFR (CKD-EPI)AfAm >90 (>60 ml/min/1.73 sqM) Est GFR (CKD-EPI)NonAf >90 (>60 ml/min/1.73 sqM) Glucose 462 H (74-99) mg/dL Plasma Lactic Acid Marquise (0.7-2.0) mmol/L Calcium 8.9 (8.4-10.2) mg/dL Phosphorus 4.2 (2.5-4.5) mg/dL Magnesium 1.6 (1.6-2.3) mg/dL Total Bilirubin 0.6 (0.2-1.3) mg/dL AST 21 (14-36) U/L ALT 26 (9-52) U/L Alkaline Phosphatase 97 (38-126) U/L Total Creatine Kinase (30-135) U/L CK-MB (CK-2) (0.0-2.4) ng/mL CK-MB (CK-2) Rel Index Troponin I (0.000-0.034) ng/mL Total Protein 7.0 (6.3-8.2) g/dL Albumin 3.6 (3.5-5.0) g/dL Urine Color Urine Appearance (Clear) Urine pH (5.0-8.0) Ur Specific [place] (1.001-1.035) Urine Protein (Negative) Urine Glucose (UA) (Negative) Urine Ketones (Negative) Urine Blood (Negative) Urine Nitrite (Negative) Urine Bilirubin (Negative) Urine Urobilinogen (<2.0) mg/dL Ur Leukocyte Esterase (Negative) 02/13/18 02/13/18 02/13/18 Range/Units 02:09 02:09 02:40 WBC (3.8-10.6) k/uL RBC (3.80-5.40) m/uL Hgb (11.4-16.0) gm/dL Hct (34.0-46.0) % MCV (80.0-100.0) fL MCH (25.0-35.0) pg MCHC (31.0-37.0) g/dL RDW (11.5-15.5) % Plt Count (150-450) k/uL Neutrophils % % Lymphocytes % % Monocytes % % Eosinophils % % Basophils % % Neutrophils # (1.3-7.7) k/uL Lymphocytes # (1.0-4.8) k/uL Monocytes # (0-1.0) k/uL Eosinophils # (0-0.7) k/uL Basophils # (0-0.2) k/uL Hypochromasia Poikilocytosis PT (9.0-12.0) sec INR (<1.2) APTT (22.0-30.0) sec Sodium (137-145) mmol/L Potassium (3.5-5.1) mmol/L Chloride (98-107) mmol/L Carbon Dioxide (22-30) mmol/L Anion Gap mmol/L BUN (7-17) mg/dL Creatinine (0.52-1.04) mg/dL Est GFR (CKD-EPI)AfAm (>60 ml/min/1.73 sqM) Est GFR (CKD-EPI)NonAf (>60 ml/min/1.73 sqM) Glucose (74-99) mg/dL Plasma Lactic Acid Marquise 1.5 (0.7-2.0) mmol/L Calcium (8.4-10.2) mg/dL Phosphorus (2.5-4.5) mg/dL Magnesium (1.6-2.3) mg/dL Total Bilirubin (0.2-1.3) mg/dL AST (14-36) U/L ALT (9-52) U/L Alkaline Phosphatase (38-126) U/L Total Creatine Kinase 65 (30-135) U/L CK-MB (CK-2) 1.7 (0.0-2.4) ng/mL CK-MB (CK-2) Rel Index 2.6 Troponin I <0.012 (0.000-0.034) ng/mL Total Protein (6.3-8.2) g/dL Albumin (3.5-5.0) g/dL Urine Color Light Yellow Urine Appearance Clear (Clear) Urine pH 5.5 (5.0-8.0) Ur Specific [place] 1.022 (1.001-1.035) Urine Protein Negative (Negative) Urine Glucose (UA) 4+ H (Negative) Urine Ketones Negative (Negative) Urine Blood Negative (Negative) Urine Nitrite Negative (Negative) Urine Bilirubin Negative (Negative) Urine Urobilinogen <2.0 (<2.0) mg/dL Ur Leukocyte Esterase Negative (Negative) - EKG Data -: EKG Interpreted by Me (EKG shows sinus rhythm rate of 80, UT 160, QRS 96, QTc 461) Disposition Clinical Impression: Diabetic foot ulcer Disposition: ADMITTED IP TO THIS HOSP Condition: Fair Is patient prescribed a controlled substance at d/c from ED?: No
[2018-02-13] MEDS ORDERED: SODIUM CHLORIDE 0.9% 500 ML 500 ML IV STA (01:26)
[2018-02-13] MEDS ORDERED: SODIUM CHLORIDE 0.9% 1,000 ML IV STA (01:26)
[2018-02-13 02:33] LABS: Basophils % (A) 1 %; Eosinophils # (A) 0.3 k/uL (0-0.7); Eosinophils % (A) 5 %; HCT 40.2 % (34.0-46.0); Hypochromasia Slight; Lymphocytes # (A) 1.2 k/uL (1.0-4.8); Lymphocytes % (A) 19 %; MCH 28.1 pg (25.0-35.0); MCHC 32.4 g/dL (31.0-37.0); Mean Platelet Volume 8.4; Monocytes # (A) 0.3 k/uL (0-1.0); Monocytes % (A) 5 %; Neutrophils # (A) 4.4 k/uL (1.3-7.7); Neutrophils % (A) 68 %; Poikilocytosis Slight; RBC 4.64 m/uL (3.80-5.40); RDW 15.9 % (11.5-15.5); WBC 6.4 k/uL (3.8-10.6)
[2018-02-13 02:42] LABS: INR 1.2 (<1.2); Partial Thromboplastin Time 26.7 sec (22.0-30.0); Prothrombin Time 11.5 sec (9.0-12.0)
[2018-02-13 02:43] LABS: ALT 26 U/L (9-52); AST 21 U/L (14-36); Albumin 3.6 g/dL (3.5-5.0); Alkaline Phosphatase 97 U/L (38-126); Anion Gap 7 mmol/L; Blood Urea Nitrogen 17 mg/dL (7-17); Calcium 8.9 mg/dL (8.4-10.2); Carbon Dioxide 24 mmol/L (22-30); Chloride 105 mmol/L (98-107); Glucose 462 mg/dL (74-99); Magnesium 1.6 mg/dL (1.6-2.3); Phosphorus 4.2 mg/dL (2.5-4.5); Potassium 4.2 mmol/L (3.5-5.1); Sodium 136 mmol/L (137-145); Total Bilirubin 0.6 mg/dL (0.2-1.3)
--- NOTE | 2018-02-13 02:55 | XR ---
EXAMINATION TYPE: XR chest 2V DATE OF EXAM: 02/13/2018 COMPARISON: 11/10/2017 HISTORY: Asthma. COPD TECHNIQUE: Frontal and lateral views of the chest are obtained. FINDINGS: There is no heart failure nor confluent pneumonic infiltrate. Costophrenic angles are melanie r. There are chest leads. Heart size is normal. Bony thorax is intact. There is no sign of pleural ef fusion. IMPRESSION: No active cardiopulmonary disease. No change.
[2018-02-13 03:05] LABS: Appearance,Urine Clear (Clear); Bilirubin,Urine Negative (Negative); Blood,Urine Negative (Negative); Color,Urine Light Yellow; Glucose,Urine (UA) 4+ (Negative); Ketones,Urine Negative (Negative); Leukocyte Esterase,Urine Negative (Negative); Nitrite,Urine Negative (Negative); PH, Urine 5.5 (5.0-8.0); Protein,Urine Negative (Negative); Specific Gravity,Urine 1.022 (1.001-1.035); Urobilinogen,Urine <2.0 mg/dL (<2.0)
[2018-02-13 03:07] LABS: Creatine Kinase 65 U/L (30-135)
[2018-02-13 03:21] LABS: Creatine Kinase MB 1.7 ng/mL (0.0-2.4); Troponin I <0.012 ng/mL (0.000-0.034)
[2018-02-13 03:23] LABS: MCV 86.7 fL (80.0-100.0); Platelet Count 74 k/uL (150-450)
[2018-02-13] MEDS ORDERED: VANCOMYCIN IV PER PHARMACY 1 EACH MISC MISCELLANE PRN (03:48)
[2018-02-13] MEDS ORDERED: cefTRIAXone 2,000 MG in SODIUM CHLORIDE 0.9% 100 ML IVPB ONE (04:30)
[2018-02-13] MEDS ORDERED: INSULIN REGULAR 100 UNIT/ML VIAL IV ONE (04:46)
[2018-02-13 04:53] LABS: Glucose,Whole Blood 396 mg/dL (75-99)
[2018-02-13] MEDS ORDERED: INSULIN ASPART 100 UNIT/ML 1 ML 10 ML VIAL SQ SCH (07:30)
[2018-02-13 07:35] LABS: Glucose,Whole Blood 382 mg/dL (75-99)
[2018-02-13] MEDS: VANCOMYCIN 2,000 MG in SODIUM CHLORIDE 0.9% 500 ML 500 ML IVPB SCH ×2 (08:06→20:24)
--- NOTE | 2018-02-13 11:06 | P.HPIM ---
History of Present Illness H&P Date: 02/13/18 Chief Complaint: Ulcer This is 62-year-old female patient who presented to the emergency room with complaints of unhealing ulcer to right foot. Patient states she's been dealing with right foot ulcer for almost a year. She's had multiple episodes of it opening up. Patient has been followed with wound care center. Patient has been positive for MRSA in the past wound at ulcer site. Patient states her son was helping her put on her socks yesterday and noticed that it was becoming black. Patient has a known past medical history of asthma, cervical cancer, COPD, diabetes mellitus, high disorder, hyperlipidemia, liver cirrhosis, osteoarthritis, sleep apnea and thyroid disorder, anxiety, bipolar and depression. Blood and urine cultures have been ordered. She started on Rocephin and vancomycin. Dr. Nielsen for infectious disease have been consulted. At this time patient denies chest pain or shortness breath. Patient denies nausea vomiting or diarrhea. Patient denies any urinary burning or frequency Review of Systems Please refer to HPI otherwise unremarkable Past Medical History Past Medical History: Asthma, Cancer, COPD, Diabetes Mellitus, Eye Disorder, Hyperlipidemia, Liver Disease, Musculoskeletal Disorder, Neurologic Disorder, Osteoarthritis (OA), Sleep Apnea/CPAP/BIPAP, Thyroid Disorder Additional Past Medical History / Comment(s): History of osteomyelitis left #3 toe and left calf: 2004. cervical cancer (in remission.) Wound vac. Cirrhosis of the liver r/t diabetes - sees Dr. Barraza History of Any Multi-Drug Resistant Organisms: MRSA Date of last positivie culture/infection: 03/20/17 MDRO Source:: MRSA HEEL Past Surgical History: Section, Cholecystectomy, Hysterectomy, Orthopedic Surgery, Tonsillectomy, Tubal Ligation Additional Past Surgical History / Comment(s): Cataracts and laser surgery for glaucoma. Multiple I&D to left foot and lower leg. Past Anesthesia/Blood Transfusion Reactions: No Reported Reaction Smoking Status: Former smoker - Past Family History Father Family Medical History: Congestive Heart Failure (CHF), Coronary Artery Disease (CAD), Myocardial Infarction ([place]) Mother Family Medical History: Coronary Artery Disease (CAD), CVA/TIA, Dementia, Myocardial Infarction ([place]) Medications and Allergies Home Medications Medication Instructions Recorded Confirmed Type metFORMIN HCL [Glucophage] 850 mg PO BID@1000,2100 02/18/14 02/13/18 History HYDROcodone/APAP 10-325MG [[place] 1 tab PO Q8H PRN #42 tab 03/30/17 02/13/18 Rx 10-325] Levothyroxine Sodium [Synthroid] 100 mcg PO DAILY 10/08/17 02/13/18 History INSULIN LISPRO (humaLOG) [humaLOG] 30 units SQ TID 02/13/18 02/13/18 History Insulin Glargine [Lantus] 100 unit SQ BID 02/13/18 02/13/18 History Allergies Allergy/AdvReac Type Severity Reaction Status Date / Time Penicillins Allergy Anaphylaxis Verified 12/17/17 10:43 Physical Exam Vitals: Vital Signs Temp Pulse Pulse Resp BP BP Pulse Ox 02/13/18 08:00 16 02/13/18 07:30 97.8 F 85 18 147/66 97 02/13/18 05:38 97.9 F 86 16 137/62 97 02/13/18 05:16 86 18 148/70 97 02/13/18 04:29 98.0 F 87 18 129/65 100 02/13/18 03:16 85 18 146/32 100 02/13/18 00:30 98.4 F 80 20 165/67 100 Intake and Output 02/12/18 02/13/18 02/13/18 22:59 06:59 14:59 Other: Voiding Method Toilet Weight 151.046 kg Head normocephalic Neck supple Lungs clear to auscultation bilaterally no wheezing or crackles Heart regular rate and rhythm S1-S2, no rub or gallop Abdomen is soft nontender nondistended positive bowel sounds no hepatosplenomegaly Extremities no edema. Bottom of right foot black ulcer noted no openings noted Neuro alert and orientated to 3 Results CBC & Chem 7: 02/13/18 02:09 02/13/18 02:09 Labs: Abnormal Lab Results - Last 24 Hours (Table) 02/13/18 02/13/18 02/13/18 Range/Units 02:09 02:09 02:09 RDW 15.9 H (11.5-15.5) % Plt Count 74 L (150-450) k/uL INR 1.2 H (<1.2) Sodium 136 L (137-145) mmol/L Glucose 462 H (74-99) mg/dL POC Glucose (mg/dL) (75-99) mg/dL Urine Glucose (UA) (Negative) 02/13/18 02/13/18 02/13/18 Range/Units 02:40 04:48 07:32 RDW (11.5-15.5) % Plt Count (150-450) k/uL INR (<1.2) Sodium (137-145) mmol/L Glucose (74-99) mg/dL POC Glucose (mg/dL) 396 H 382 H (75-99) mg/dL Urine Glucose (UA) 4+ H (Negative) Assessment and Plan Assessment: 1. Nonhealing diabetic right foot ulcer. Patient started on Rocephin and vancomycin. Blood cultures have been ordered. Infectious disease has been consulted 2. Chronic Thrombocytopenia. Platelet 74. Dr. bowling consulted in the past states from his cytopenia related secondary to multiple comorbidities including liver disease, splenomegaly and worsening with active infection. 3. Diabetes mellitus type 2 uncontrolled blood sugars. Home medications resumed at this time 4. Morbid obesity 5. History of Hyperlipidemia 6. History of Hypothyroidism 7. History of bipolar depression 8. History of Liver cirrhosis 9. History of sleep apnea 10. History of osteomyelitis DVT prophylaxis SCDs due to thrombocytopenia. GI prophylaxis Protonix Time with Patient: Greater than 30 (Greater than 60% of the total time spent in counseling and coordination of care. I performed an examination of the patient and discussed their management with the Nurse Practitioner. I have reviewed the Nurse Practitioner's notes and agree with the documented findings and plan of care)
[2018-02-13] MEDS: HYDROcodone/APAP 10-325MG 1 EACH TAB PO PRN ×2 (11:41→20:35)
[2018-02-13 12:42] LABS: Glucose,Whole Blood 244 mg/dL (75-99)
[2018-02-13 16:46] LABS: Glucose,Whole Blood 327 mg/dL (75-99)
[2018-02-13] MEDS: INSULIN ASPART 100 UNIT/ML 1 ML 10 ML VIAL SQ SCH ×2 (17:38→21:49)
[2018-02-13 20:51] LABS: Glucose,Whole Blood 328 mg/dL (75-99)
[2018-02-13] MEDS: metFORMIN 850 MG TAB PO SCH (21:49)
--- NOTE | 2018-02-13 22:04 | P.CONS ---
History of Present Illness - Reason for Consult Consult date: 02/13/18 - Chief Complaint Wound right heel - History of Present Illness 62-year-old female who has multiple medical troubles that includes diabetes mellitus type 2 poorly controlled over time, superobesity which is improving over time patient relates she is comfortable 5X to a 2X in her clothing over the last year. 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 More recently to the summer was having ongoing difficulties with her right heel where she had a right heel ulceration that underwent care at the wound healing center with a total contact cast allowed complete healing of the ulceration in October. The patient relates since then she's been doing relatively well quite recently noticed that she developed a bit of irritation to the plantar heel and she started to have some fevers and chills and constantly presented to the emergency center he was admitted for concerns to sepsis from a diabetic foot infection. The patient has been febrile and has been having chills without jovi rigors. She feels quite poorly. Blood sugars are markedly elevated and she relates it's higher than they've been at home. She relates her home situation has improved. She has the 3 children and grandchild who lives with her, she takes great self- worth in the care of her grandchild. Review of Systems Constitutional: Reports chills, Reports fever, Denies anorexia, Denies poor appetite Eyes: denies blurred vision, denies pain Ears, nose, mouth and throat: Denies dental pain, Denies headache, Denies mouth pain, Denies sore throat Cardiovascular: Reports leg edema, Denies chest pain, Denies dyspnea on exertion , Denies lightheadedness, Denies shortness of breath, Denies syncope Respiratory: Denies cough, Denies cough with sputum, Denies dyspnea, Denies excessive sputum, Denies hemoptysis, Denies home oxygen Gastrointestinal: Denies abdominal pain, Denies diarrhea, Denies loss of appetite, Denies nausea, Denies vomiting Genitourinary: Denies dysuria, Denies hematuria, Denies urgency Musculoskeletal: Denies myalgias Integumentary: Reports wounds, Denies pruritus, Denies rash Neurological: Denies numbness, Denies weakness Psychiatric: Denies anxiety, Denies depression Endocrine: Complains of chronic fatigue and has been been losing weight purposely for the last year. Past Medical History Past Medical History: Asthma, Cancer, COPD, Diabetes Mellitus, Eye Disorder, Hyperlipidemia, Liver Disease, Musculoskeletal Disorder, Neurologic Disorder, Osteoarthritis (OA), Sleep Apnea/CPAP/BIPAP, Thyroid Disorder Additional Past Medical History / Comment(s): History of osteomyelitis left #3 toe and left calf: 2004. cervical cancer (in remission.) Wound vac. Cirrhosis of the liver r/t diabetes - sees Dr. Barraza History of Any Multi-Drug Resistant Organisms: MRSA Year Discovered:: 03/20/17 MDRO Source:: MRSA HEEL Past Surgical History: Section, Cholecystectomy, Hysterectomy, Orthopedic Surgery, Tonsillectomy, Tubal Ligation Additional Past Surgical History / Comment(s): Cataracts and laser surgery for glaucoma. Multiple I&D to left foot and lower leg. Past Anesthesia/Blood Transfusion Reactions: No Reported Reaction Additional Psychological History / Comment(s): Lives in an apartment with her 3 children and granddaughter. Reformed smoker. Denies alcohol use. Medically disabled. No experience. No international travel. No animals in the home. Relates that bedbug infestation has been cleared up Smoking Status: Former smoker - Past Family History Father Family Medical History: Congestive Heart Failure (CHF), Coronary Artery Disease (CAD), Myocardial Infarction ([place]) Mother Family Medical History: Coronary Artery Disease (CAD), CVA/TIA, Dementia, Myocardial Infarction ([place]) Medications and Allergies Home Medications and Allergies Comment(s): Current Medications Hydrocodone Bitart/Acetaminophen ([place] 10) 1 each PO Q8H PRN PRN Reason: Pain Last Admin: 02/13/18 20:35 Dose: 1 each Ceftriaxone Sodium 1,000 mg/ (Sodium Chloride) 50 mls @ 100 mls/hr IVPB Q12H [facility] Last Admin: 02/13/18 13:44 Dose: 100 mls/hr Vancomycin HCl 2,000 mg/ (Sodium Chloride) 500 mls @ 167 mls/hr IVPB Q12H [facility] Last Admin: 02/13/18 20:24 Dose: 167 mls/hr Insulin Aspart (Novolog) 30 unit SQ TID [facility] Last Admin: 02/13/18 17:38 Dose: 30 unit Insulin Detemir (Levemir) 100 unit SQ BID [facility] Levothyroxine Sodium (Synthroid) 100 mcg PO DAILY@0630 [facility] Metformin HCl (Glucophage) 850 mg PO BID@1000,2100 [facility] Pantoprazole Sodium (Protonix) 40 mg PO AC-BRKFST [facility] Home Medications Medication Instructions Recorded Confirmed Type metFORMIN HCL [Glucophage] 850 mg PO BID@1000,2100 02/18/14 02/13/18 History HYDROcodone/APAP 10-325MG [[place] 1 tab PO Q8H PRN #42 tab 03/30/17 02/13/18 Rx 10-325] Levothyroxine Sodium [Synthroid] 100 mcg PO DAILY 10/08/17 02/13/18 History INSULIN LISPRO (humaLOG) [humaLOG] 30 units SQ TID 02/13/18 02/13/18 History Insulin Glargine [Lantus] 100 unit SQ BID 02/13/18 02/13/18 History Allergies Allergy/AdvReac Type Severity Reaction Status Date / Time Penicillins Allergy Anaphylaxis Verified 12/17/17 10:43 Physical Exam Vitals: Vital Signs Temp Pulse Pulse Resp BP BP BP 02/13/18 20:00 98.5 F 87 18 149/66 02/13/18 16:00 86 18 02/13/18 15:57 97.5 F L 86 18 166/75 02/13/18 12:00 85 16 02/13/18 08:00 16 02/13/18 07:30 97.8 F 85 18 147/66 02/13/18 05:38 97.9 F 86 16 137/62 02/13/18 05:16 86 18 148/70 02/13/18 04:29 98.0 F 87 18 129/65 02/13/18 03:16 85 18 146/32 02/13/18 00:30 98.4 F 80 20 165/67 Pulse Ox 02/13/18 20:00 99 02/13/18 16:00 02/13/18 15:57 98 02/13/18 12:00 02/13/18 08:00 02/13/18 07:30 97 02/13/18 05:38 97 02/13/18 05:16 97 02/13/18 04:29 100 02/13/18 03:16 100 02/13/18 00:30 100 Intake and Output 02/13/18 02/13/18 02/13/18 06:59 14:59 22:59 Intake Total 500 420 Balance 500 420 Intake: Oral 300 420 Other 200 Other: Voiding Method Toilet Toilet Weight 151.046 kg 62-year-old female presents to hospital with complaints of fever chills and worsening diabetic foot infection right heel HEENT: Anicteric conjunctiva are pink and moist nasal mucosa grossly intact without significant lesions, there is no thrush. Poor dentition Neck: The neck is supple without significant lymphadenopathy or thyromegaly. Lungs: Good bilateral air entry without significant crackles or wheezing. There is no significant bronchial sounds. There is no egophony or dullness. Heart: Regular rate and rhythm with an audible S1-S2, no S3 no S4. There is no significant murmur click or rub, PMI was nondisplaced. Abdomen: Obese Positive bowel sounds soft and nontender without palpable masses or organomegaly. There was no guarding or rebound. Extremities: Upper extremities without lesions. Lower extremities show no acute lesions to the left foot amputation site is well-healed. Right lower extremity reveals the discoloration to the right heel appears to have some mild fluctuance but there is an unstageable deep tissue injury present on admission, no drainage. The site is warm with minimal ascending erythema. No lymphadenopathy is noted to the right inguinal area. No other abnormal lymph nodes are seen either. Neuro: Awake alert oriented to person place and time. There are no acute new gross focal sensory motor deficits. Results CBC & Chem 7: 02/13/18 02:09 02/13/18 02:09 Labs: Abnormal Lab Results - Last 24 Hours (Table) 02/13/18 02/13/18 02/13/18 Range/Units 02:09 02:09 02:09 RDW 15.9 H (11.5-15.5) % Plt Count 74 L (150-450) k/uL INR 1.2 H (<1.2) Sodium 136 L (137-145) mmol/L Glucose 462 H (74-99) mg/dL POC Glucose (mg/dL) (75-99) mg/dL Urine Glucose (UA) (Negative) 02/13/18 02/13/18 02/13/18 Range/Units 02:40 04:48 07:32 RDW (11.5-15.5) % Plt Count (150-450) k/uL INR (<1.2) Sodium (137-145) mmol/L Glucose (74-99) mg/dL POC Glucose (mg/dL) 396 H 382 H (75-99) mg/dL Urine Glucose (UA) 4+ H (Negative) 02/13/18 02/13/18 02/13/18 Range/Units 12:07 16:42 20:42 RDW (11.5-15.5) % Plt Count (150-450) k/uL INR (<1.2) Sodium (137-145) mmol/L Glucose (74-99) mg/dL POC Glucose (mg/dL) 244 H 327 H 328 H (75-99) mg/dL Urine Glucose (UA) (Negative) Microbiology - Last 24 Hours (Table) 02/13/18 02:40 Urine Culture - Preliminary Urine,Voided Laboratory Results WBC 6.4 k/uL (3.8-10.6) 02/13/18 02:09 RBC 4.64 m/uL (3.80-5.40) 02/13/18 02:09 Hgb 13.0 gm/dL (11.4-16.0) 02/13/18 02:09 Hct 40.2 % (34.0-46.0) 02/13/18 02:09 MCV 86.7 fL (80.0-100.0) D 02/13/18 02:09 MCH 28.1 pg (25.0-35.0) 02/13/18 02:09 MCHC 32.4 g/dL (31.0-37.0) 02/13/18 02:09 RDW 15.9 % (11.5-15.5) H 02/13/18 02:09 Plt Count 74 k/uL (150-450) L 02/13/18 02:09 Neutrophils % 68 % 02/13/18 02:09 Lymphocytes % 19 % 02/13/18 02:09 Monocytes % 5 % 02/13/18 02:09 Eosinophils % 5 % 02/13/18 02:09 Basophils % 1 % 02/13/18 02:09 Neutrophils # 4.4 k/uL (1.3-7.7) 02/13/18 02:09 Lymphocytes # 1.2 k/uL (1.0-4.8) 02/13/18 02:09 Monocytes # 0.3 k/uL (0-1.0) 02/13/18 02:09 Eosinophils # 0.3 k/uL (0-0.7) 02/13/18 02:09 Basophils # 0.0 k/uL (0-0.2) 02/13/18 02:09 Hypochromasia Slight 02/13/18 02:09 Poikilocytosis Slight 02/13/18 02:09 PT 11.5 sec (9.0-12.0) 02/13/18 02:09 INR 1.2 (<1.2) H 02/13/18 02:09 APTT 26.7 sec (22.0-30.0) 02/13/18 02:09 Sodium 136 mmol/L (137-145) L 02/13/18 02:09 Potassium 4.2 mmol/L (3.5-5.1) 02/13/18 02:09 Chloride 105 mmol/L (98-107) 02/13/18 02:09 Carbon Dioxide 24 mmol/L (22-30) 02/13/18 02:09 Anion Gap 7 mmol/L 02/13/18 02:09 BUN 17 mg/dL (7-17) 02/13/18 02:09 Creatinine 0.56 mg/dL (0.52-1.04) 02/13/18 02:09 Est GFR (CKD-EPI)AfAm >90 (>60 ml/min/1.73 sqM) 02/13/18 02:09 Est GFR (CKD-EPI)NonAf >90 (>60 ml/min/1.73 sqM) 02/13/18 02:09 Glucose 462 mg/dL (74-99) H 02/13/18 02:09 POC Glucose (mg/dL) 328 mg/dL (75-99) H 02/13/18 20:42 POC Glu Patient Portal Representative ID Joana Mata 02/13/18 20:42 Plasma Lactic Acid Marquise 1.5 mmol/L (0.7-2.0) 02/13/18 02:09 Calcium 8.9 mg/dL (8.4-10.2) 02/13/18 02:09 Phosphorus 4.2 mg/dL (2.5-4.5) 02/13/18 02:09 Magnesium 1.6 mg/dL (1.6-2.3) 02/13/18 02:09 Total Bilirubin 0.6 mg/dL (0.2-1.3) 02/13/18 02:09 AST 21 U/L (14-36) 02/13/18 02:09 ALT 26 U/L (9-52) 02/13/18 02:09 Alkaline Phosphatase 97 U/L (38-126) 02/13/18 02:09 Total Creatine Kinase 65 U/L (30-135) 02/13/18 02:09 CK-MB (CK-2) 1.7 ng/mL (0.0-2.4) 02/13/18 02:09 CK-MB (CK-2) Rel Index 2.6 02/13/18 02:09 Troponin I <0.012 ng/mL (0.000-0.034) 02/13/18 02:09 Total Protein 7.0 g/dL (6.3-8.2) 02/13/18 02:09 Albumin 3.6 g/dL (3.5-5.0) 02/13/18 02:09 Urine Color Light Yellow 02/13/18 02:40 Urine Appearance Clear (Clear) 02/13/18 02:40 Urine pH 5.5 (5.0-8.0) 02/13/18 02:40 Ur Specific [place] 1.022 (1.001-1.035) 02/13/18 02:40 Urine Protein Negative (Negative) 02/13/18 02:40 Urine Glucose (UA) 4+ (Negative) H 02/13/18 02:40 Urine Ketones Negative (Negative) 02/13/18 02:40 Urine Blood Negative (Negative) 02/13/18 02:40 Urine Nitrite Negative (Negative) 02/13/18 02:40 Urine Bilirubin Negative (Negative) 02/13/18 02:40 Urine Urobilinogen <2.0 mg/dL (<2.0) 02/13/18 02:40 Ur Leukocyte Esterase Negative (Negative) 02/13/18 02:40 Microbiology 02/13/18 02:40 Urine,Voided Urine Culture - Preliminary Assessment and Plan (1) Diabetic infection of right foot Narrative/Plan: 62-year-old female presents to Hospital with concerns to an infection to her right foot at the heel which is the site where she's had a prior diabetic foot ulceration that was healed with a total contact cast. The patient has had difficulty with fever and has evidence of infection to the right foot at the heel. She is in the midst of having a specialty shoe constructed, but is wearing a surgical shoe at this time which likely has been putting undue pressure on the heel resulting in injury and diabetic foot infection. Based on prior cultures meropenem and vancomycin are which he be utilized for now while cultures are process. If any drainage occurs that should be cultured. She needs improved diabetic care hemoglobin A1c is up to 9.8. Multivitamin with zinc will be added. We'll likely need to follow the wound healing center for further offloading. We'll perform x-rays of the site and may need further imaging such as a bone scan to evaluate for deeper infection. Current Visit: Yes Status: Acute Code(s): E11.628 - TYPE 2 DIABETES MELLITUS WITH OTHER SKIN COMPLICATIONS; L08.9 - LOCAL INFECTION OF THE SKIN AND SUBCUTANEOUS TISSUE, UNSP SNOMED Code(s): 80652708 (2) Fever and chills Current Visit: Yes Status: Acute Code(s): R50.9 - FEVER, UNSPECIFIED SNOMED Code(s): 728656979 (3) Poorly controlled type 2 diabetes mellitus with neuropathy Current Visit: Yes Status: Acute Code(s): E11.40 - TYPE 2 DIABETES MELLITUS WITH DIABETIC NEUROPATHY, UNSP; E11.65 - TYPE 2 DIABETES MELLITUS WITH HYPERGLYCEMIA SNOMED Code(s): 79566182
[2018-02-13] MEDS: INSULIN DETEMIR 100 UNIT/ML 10 ML VIAL SQ SCH (22:40)
--- NOTE | 2018-02-13 23:07 | XR ---
EXAM: XR Right Foot Complete, 3 or More Views CLINICAL HISTORY: ITS.REASON XR Reason: Osteomyelitis of the right heel TECHNIQUE: Frontal, lateral and oblique views of the right foot. COMPARISON: 02/14/17. FINDINGS: Bones/joints: No acute fracture. Slight fragmentation of the Achilles spur. Degenerative changes. Plantar calcaneal spur again noted. Soft tissues: Soft tissue swelling. IMPRESSION: 1. No acute fracture. 2. Slight fragmentation of the Achilles spur. 3. If there is concern for osteomyelitis, MRI may be considered.
[2018-02-13 23:13] LABS: Glucose,Whole Blood 390 mg/dL (75-99)
[2018-02-14] MEDS: MEROPENEM 2 GM in SODIUM CHLORIDE 0.9% 100 ML IVPB SCH ×3 (00:02→17:10)
[2018-02-14] MEDS: HYDROcodone/APAP 10-325MG 1 EACH TAB PO PRN ×2 (05:31→20:20)
[2018-02-14] MEDS: LEVOTHYROXINE 100 MCG TAB PO SCH (05:31)
[2018-02-14 07:10] LABS: Glucose,Whole Blood 137 mg/dL (75-99)
[2018-02-14 07:42] LABS: Basophils % (A) 1 %; Eosinophils # (A) 0.4 k/uL (0-0.7); Eosinophils % (A) 7 %; HCT 37.2 % (34.0-46.0); HGB 12.3 gm/dL (11.4-16.0); Lymphocytes # (A) 0.8 k/uL (1.0-4.8); Lymphocytes % (A) 15 %; MCHC 33.1 g/dL (31.0-37.0); MCV 84.7 fL (80.0-100.0); Mean Platelet Volume 8.1; Monocytes # (A) 0.3 k/uL (0-1.0); Monocytes % (A) 6 %; Neutrophils % (A) 70 %; Poikilocytosis Slight; WBC 5.6 k/uL (3.8-10.6)
[2018-02-14 07:45] LABS: Platelet Count 82 k/uL (150-450)
[2018-02-14 08:01] LABS: ALT 23 U/L (9-52); AST 26 U/L (14-36); Albumin 3.2 g/dL (3.5-5.0); Alkaline Phosphatase 89 U/L (38-126); Anion Gap 6 mmol/L; Blood Urea Nitrogen 13 mg/dL (7-17); Calcium 8.6 mg/dL (8.4-10.2); Carbon Dioxide 26 mmol/L (22-30); Chloride 109 mmol/L (98-107); Glucose 144 mg/dL (74-99); Potassium 4.3 mmol/L (3.5-5.1); Sodium 141 mmol/L (137-145); Total Bilirubin 0.7 mg/dL (0.2-1.3); Total Protein 6.6 g/dL (6.3-8.2)
[2018-02-14] MEDS: VANCOMYCIN 2,000 MG in SODIUM CHLORIDE 0.9% 500 ML 500 ML IVPB SCH ×2 (09:23→20:23)
[2018-02-14] MEDS: metFORMIN 850 MG TAB PO SCH ×2 (09:23→20:22)
[2018-02-14] MEDS: MULTIVITAMINS, THERA 1 EACH TAB PO SCH (09:23)
[2018-02-14] MEDS: INSULIN ASPART 100 UNIT/ML 1 ML 10 ML VIAL SQ SCH ×4 (09:24→22:54)
[2018-02-14] MEDS: PANTOPRAZOLE 40 MG TABLET PO SCH (09:24)
--- NOTE | 2018-02-14 10:34 | P.PN ---
Subjective Progress Note Date: 02/14/18 This is 62-year-old female patient who presented to the emergency room with complaints of unhealing ulcer to right foot. Patient states she's been dealing with right foot ulcer for almost a year. She's had multiple episodes of it opening up. Patient has been followed with wound care center. Patient has been positive for MRSA in the past wound at ulcer site. Patient states her son was helping her put on her socks yesterday and noticed that it was becoming black. Patient has a known past medical history of asthma, cervical cancer, COPD, diabetes mellitus, high disorder, hyperlipidemia, liver cirrhosis, osteoarthritis, sleep apnea and thyroid disorder, anxiety, bipolar and depression. Blood and urine cultures have been ordered. She started on Rocephin and vancomycin. Dr. Nielsen for infectious disease have been consulted. At this time patient denies chest pain or shortness breath. Patient denies nausea vomiting or diarrhea. Patient denies any urinary burning or frequency On 02/14/2018 patient is currently resting comfortably in bed. Patient's right heel wound unchanged from yesterday. At this time patient denies chest pain or shortness breath. Patient denies nausea vomiting or diarrhea. Patient denies any urinary burning or frequency Objective - Vital Signs Vital signs: Vital Signs Temp 98.1 F 02/14/18 07:40 Pulse 91 02/14/18 07:40 Resp 18 02/14/18 07:40 BP 136/62 02/14/18 07:40 Pulse Ox 96 02/14/18 07:40 Intake & Output 02/13/18 02/14/18 02/14/18 18:59 06:59 18:59 Intake Total 920 420 Balance 920 420 Weight 152.2 kg Intake: Oral 720 420 Other 200 Other: Voiding Method Toilet Toilet # Voids 3 - Exam Head normocephalic Neck supple Lungs clear to auscultation bilaterally no wheezing or crackles Heart regular rate and rhythm S1-S2, no rub or gallop Abdomen is soft nontender nondistended positive bowel sounds no hepatosplenomegaly Extremities no edema. Bottom of right foot black ulcer noted no openings noted Neuro alert and orientated to 3 - Labs CBC & Chem 7: 02/14/18 07:13 02/14/18 07:13 Labs: Abnormal Lab Results - Last 24 Hours (Table) 02/13/18 02/13/18 02/13/18 Range/Units 12:07 16:42 20:42 RDW (11.5-15.5) % Plt Count (150-450) k/uL Lymphocytes # (1.0-4.8) k/uL Chloride (98-107) mmol/L Glucose (74-99) mg/dL POC Glucose (mg/dL) 244 H 327 H 328 H (75-99) mg/dL Albumin (3.5-5.0) g/dL 02/13/18 02/14/18 02/14/18 Range/Units 22:46 07:08 07:13 RDW (11.5-15.5) % Plt Count (150-450) k/uL Lymphocytes # (1.0-4.8) k/uL Chloride 109 H (98-107) mmol/L Glucose 144 H (74-99) mg/dL POC Glucose (mg/dL) 390 H 137 H (75-99) mg/dL Albumin 3.2 L (3.5-5.0) g/dL 02/14/18 Range/Units 07:13 RDW 16.0 H (11.5-15.5) % Plt Count 82 L (150-450) k/uL Lymphocytes # 0.8 L (1.0-4.8) k/uL Chloride (98-107) mmol/L Glucose (74-99) mg/dL POC Glucose (mg/dL) (75-99) mg/dL Albumin (3.5-5.0) g/dL Microbiology - Last 24 Hours (Table) 02/13/18 02:09 Blood Culture - Preliminary Blood No Growth after 24 hours 02/13/18 02:40 Urine Culture - Preliminary Urine,Voided Assessment and Plan Assessment: 1. Nonhealing diabetic right foot ulcer. Patient started on Rocephin and vancomycin. Blood cultures have been ordered. per infectious disease has been switched to meropenem and vancomycin. foot x-ray completed showing no acute fracture. Slight fragmentation of the Achilles spur. There is concern for vasculitis, MRI may be considered 2. Chronic Thrombocytopenia. Platelet 74. Dr. bowling consulted in the past states from his cytopenia related secondary to multiple comorbidities including liver disease, splenomegaly and worsening with active infection. 3. Diabetes mellitus type 2 uncontrolled blood sugars. Home medications resumed at this time 4. Morbid obesity 5. History of Hyperlipidemia 6. History of Hypothyroidism 7. History of bipolar depression 8. History of Liver cirrhosis 9. History of sleep apnea 10. History of osteomyelitis DVT prophylaxis SCDs due to thrombocytopenia. GI prophylaxis Protonix I performed an examination of the patient and discussed their management with the Nurse Practitioner. I have reviewed the Nurse Practitioner's notes and agree with the documented findings and plan of care
[2018-02-14 11:34] VITALS: BMI 49.5
[2018-02-14 12:20] LABS: Glucose,Whole Blood 209 mg/dL (75-99)
[2018-02-14] MEDS: INSULIN DETEMIR 100 UNIT/ML 10 ML VIAL SQ SCH ×2 (13:29→22:54)
[2018-02-14 17:03] LABS: Glucose,Whole Blood 171 mg/dL (75-99)
[2018-02-14 20:34] LABS: Glucose,Whole Blood 136 mg/dL (75-99)
--- NOTE | 2018-02-14 21:54 | P.PN ---
Subjective Progress Note Date: 02/14/18 62-year-old female who has multiple medical troubles that includes diabetes mellitus type 2 poorly controlled over time, superobesity which is improving over time patient relates she is comfortable 5X to a 2X in her clothing over the last year. 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 More recently to the summer was having ongoing difficulties with her right heel where she had a right heel ulceration that underwent care at the wound healing center with a total contact cast allowed complete healing of the ulceration in October. The patient relates since then she's been doing relatively well quite recently noticed that she developed a bit of irritation to the plantar heel and she started to have some fevers and chills and constantly presented to the emergency center he was admitted for concerns to sepsis from a diabetic foot infection. The patient has been febrile and has been having chills without jovi rigors. She feels quite poorly. Blood sugars are markedly elevated and she relates it's higher than they've been at home. She relates her home situation has improved. She has the 3 children and grandchild who lives with her, she takes great self- worth in the care of her grandchild. 02/14/2018 patient has had a bit of a difficult day and that she developed significant itching when she received her dose of meropenem no difficulties with vancomycin therapy. X-rays been performed and cannot exclude underlying difficulty in consequently MRI is recommended. Patient is feeling slightly better today but continues to have significant fluctuations of her blood glucose giving concerns underlying infection. Objective - Vital Signs Vital signs: Vital Signs Temp 98.7 F 02/14/18 17:12 Pulse 96 02/14/18 17:18 Resp 18 02/14/18 17:18 BP 136/78 02/14/18 17:12 Pulse Ox 94 L 02/14/18 17:12 Intake & Output 02/14/18 02/14/18 02/15/18 06:59 18:59 06:59 Intake Total 1320 Balance 1320 Weight 152.2 kg 152.2 kg Intake: Intake, IV Titration 500 Amount Vancomycin 2,000 mg In 500 Sodium Chloride 0.9% 500 ml 500 ml @ 167 mls/hr IVPB Q12H [facility] Rx#: [id number] Oral 820 Other: Voiding Method Toilet Toilet # Voids 3 # Bowel Movements 0 - Exam 62-year-old female presents to hospital with complaints of fever chills and worsening diabetic foot infection right heel HEENT: Anicteric conjunctiva are pink and moist nasal mucosa grossly intact without significant lesions, there is no thrush. Poor dentition Neck: The neck is supple without significant lymphadenopathy or thyromegaly. Lungs: Good bilateral air entry without significant crackles or wheezing. There is no significant bronchial sounds. There is no egophony or dullness. Heart: Regular rate and rhythm with an audible S1-S2, no S3 no S4. There is no significant murmur click or rub, PMI was nondisplaced. Abdomen: Obese Positive bowel sounds soft and nontender without palpable masses or organomegaly. There was no guarding or rebound. Extremities: Upper extremities without lesions. Lower extremities show no acute lesions to the left foot amputation site is well-healed. Right lower extremity reveals the discoloration to the right heel appears to have some mild fluctuance but there is an unstageable deep tissue injury present on admission, no drainage. The site is warm with minimal ascending erythema. No lymphadenopathy is noted to the right inguinal area. No other abnormal lymph nodes are seen either. Neuro: Awake alert oriented to person place and time. There are no acute new gross focal sensory motor deficits. - Labs CBC & Chem 7: 02/14/18 07:13 02/14/18 07:13 Labs: Abnormal Lab Results - Last 24 Hours (Table) 02/13/18 02/14/18 02/14/18 Range/Units 22:46 07:08 07:13 RDW (11.5-15.5) % Plt Count (150-450) k/uL Lymphocytes # (1.0-4.8) k/uL Chloride 109 H (98-107) mmol/L Glucose 144 H (74-99) mg/dL POC Glucose (mg/dL) 390 H 137 H (75-99) mg/dL Albumin 3.2 L (3.5-5.0) g/dL 02/14/18 02/14/18 02/14/18 Range/Units 07:13 12:06 17:01 RDW 16.0 H (11.5-15.5) % Plt Count 82 L (150-450) k/uL Lymphocytes # 0.8 L (1.0-4.8) k/uL Chloride (98-107) mmol/L Glucose (74-99) mg/dL POC Glucose (mg/dL) 209 H 171 H (75-99) mg/dL Albumin (3.5-5.0) g/dL 02/14/18 Range/Units 20:33 RDW (11.5-15.5) % Plt Count (150-450) k/uL Lymphocytes # (1.0-4.8) k/uL Chloride (98-107) mmol/L Glucose (74-99) mg/dL POC Glucose (mg/dL) 136 H (75-99) mg/dL Albumin (3.5-5.0) g/dL Microbiology - Last 24 Hours (Table) 02/13/18 02:40 Urine Culture - Final Urine,Voided 02/13/18 02:09 Blood Culture - Preliminary Blood No Growth after 24 hours Laboratory Results WBC 5.6 k/uL (3.8-10.6) 02/14/18 07:13 RBC 4.40 m/uL (3.80-5.40) 02/14/18 07:13 Hgb 12.3 gm/dL (11.4-16.0) 02/14/18 07:13 Hct 37.2 % (34.0-46.0) 02/14/18 07:13 MCV 84.7 fL (80.0-100.0) 02/14/18 07:13 MCH 28.0 pg (25.0-35.0) 02/14/18 07:13 MCHC 33.1 g/dL (31.0-37.0) 02/14/18 07:13 RDW 16.0 % (11.5-15.5) H 02/14/18 07:13 Plt Count 82 k/uL (150-450) L 02/14/18 07:13 Neutrophils % 70 % 02/14/18 07:13 Lymphocytes % 15 % 02/14/18 07:13 Monocytes % 6 % 02/14/18 07:13 Eosinophils % 7 % 02/14/18 07:13 Basophils % 1 % 02/14/18 07:13 Neutrophils # 4.0 k/uL (1.3-7.7) 02/14/18 07:13 Lymphocytes # 0.8 k/uL (1.0-4.8) L 02/14/18 07:13 Monocytes # 0.3 k/uL (0-1.0) 02/14/18 07:13 Eosinophils # 0.4 k/uL (0-0.7) 02/14/18 07:13 Basophils # 0.0 k/uL (0-0.2) 02/14/18 07:13 Hypochromasia Slight 02/13/18 02:09 Poikilocytosis Slight 02/14/18 07:13 PT 11.5 sec (9.0-12.0) 02/13/18 02:09 INR 1.2 (<1.2) H 02/13/18 02:09 APTT 26.7 sec (22.0-30.0) 02/13/18 02:09 Sodium 141 mmol/L (137-145) 02/14/18 07:13 Potassium 4.3 mmol/L (3.5-5.1) 02/14/18 07:13 Chloride 109 mmol/L (98-107) H 02/14/18 07:13 Carbon Dioxide 26 mmol/L (22-30) 02/14/18 07:13 Anion Gap 6 mmol/L 02/14/18 07:13 BUN 13 mg/dL (7-17) 02/14/18 07:13 Creatinine 0.63 mg/dL (0.52-1.04) 02/14/18 07:13 Est GFR (CKD-EPI)AfAm >90 (>60 ml/min/1.73 sqM) 02/14/18 07:13 Est GFR (CKD-EPI)NonAf >90 (>60 ml/min/1.73 sqM) 02/14/18 07:13 Glucose 144 mg/dL (74-99) H 02/14/18 07:13 POC Glucose (mg/dL) 136 mg/dL (75-99) H 02/14/18 20:33 POC Glu Gang Bore Operator ID Dye, Anne 02/14/18 20:33 Plasma Lactic Acid Marquise 1.5 mmol/L (0.7-2.0) 02/13/18 02:09 Calcium 8.6 mg/dL (8.4-10.2) 02/14/18 07:13 Phosphorus 4.2 mg/dL (2.5-4.5) 02/13/18 02:09 Magnesium 1.6 mg/dL (1.6-2.3) 02/13/18 02:09 Total Bilirubin 0.7 mg/dL (0.2-1.3) 02/14/18 07:13 AST 26 U/L (14-36) 02/14/18 07:13 ALT 23 U/L (9-52) 02/14/18 07:13 Alkaline Phosphatase 89 U/L (38-126) 02/14/18 07:13 Total Creatine Kinase 65 U/L (30-135) 02/13/18 02:09 CK-MB (CK-2) 1.7 ng/mL (0.0-2.4) 02/13/18 02:09 CK-MB (CK-2) Rel Index 2.6 02/13/18 02:09 Troponin I <0.012 ng/mL (0.000-0.034) 02/13/18 02:09 Total Protein 6.6 g/dL (6.3-8.2) 02/14/18 07:13 Albumin 3.2 g/dL (3.5-5.0) L 02/14/18 07:13 Urine Color Light Yellow 02/13/18 02:40 Urine Appearance Clear (Clear) 02/13/18 02:40 Urine pH 5.5 (5.0-8.0) 02/13/18 02:40 Ur Specific [place] 1.022 (1.001-1.035) 02/13/18 02:40 Urine Protein Negative (Negative) 02/13/18 02:40 Urine Glucose (UA) 4+ (Negative) H 02/13/18 02:40 Urine Ketones Negative (Negative) 02/13/18 02:40 Urine Blood Negative (Negative) 02/13/18 02:40 Urine Nitrite Negative (Negative) 02/13/18 02:40 Urine Bilirubin Negative (Negative) 02/13/18 02:40 Urine Urobilinogen <2.0 mg/dL (<2.0) 02/13/18 02:40 Ur Leukocyte Esterase Negative (Negative) 02/13/18 02:40 Microbiology 02/13/18 02:40 Urine,Voided Urine Culture - Final 02/13/18 02:09 Blood Blood Culture - Preliminary No Growth after 24 hours Foot x-ray reveals evidence of concerns underlying osteomyelitis MRI recommended Assessment and Plan (1) Diabetic infection of right foot Narrative/Plan: 62-year-old female presents to Hospital with concerns to an infection to her right foot at the heel which is the site where she's had a prior diabetic foot ulceration that was healed with a total contact cast. The patient has had difficulty with fever and has evidence of infection to the right foot at the heel. She is in the midst of having a specialty shoe constructed, but is wearing a surgical shoe at this time which likely has been putting undue pressure on the heel resulting in injury and diabetic foot infection. Based on prior cultures meropenem and vancomycin are which he be utilized for now while cultures are process. If any drainage occurs that should be cultured. She needs improved diabetic care hemoglobin A1c is up to 9.8. Multivitamin with zinc will be added. We'll likely need to follow the wound healing center for further offloading. We'll perform x-rays of the site and may need further imaging such as a bone scan to evaluate for deeper infection. 02/14/2018 patient with rash with meropenem therapy today. No difficulties with vancomycin. He has a known penicillin ALLERGY. Consequently meropenem was discontinued will changed to Azactam. MRI is requested to evaluate the possibility of osteomyelitis to the right heel. Offloaded the site. Cultures in process. Continues to have wide fluctuations of her blood glucose which brings concerned underlying infection. Current Visit: Yes Status: Acute Code(s): E11.628 - TYPE 2 DIABETES MELLITUS WITH OTHER SKIN COMPLICATIONS; L08.9 - LOCAL INFECTION OF THE SKIN AND SUBCUTANEOUS TISSUE, UNSP SNOMED Code(s): 26844753 (2) Fever and chills Current Visit: Yes Status: Acute Code(s): R50.9 - FEVER, UNSPECIFIED SNOMED Code(s): 732000228 (3) Poorly controlled type 2 diabetes mellitus with neuropathy Current Visit: Yes Status: Acute Code(s): E11.40 - TYPE 2 DIABETES MELLITUS WITH DIABETIC NEUROPATHY, UNSP; E11.65 - TYPE 2 DIABETES MELLITUS WITH HYPERGLYCEMIA SNOMED Code(s): 98405048
[2018-02-15] MEDS: PREGABALIN 75 MG CAP PO SCH ×3 (00:13→21:27)
[2018-02-15] MEDS: ATORVASTATIN 40 MG TAB PO SCH ×2 (00:13→21:22)
[2018-02-15] MEDS: CYCLOBENZAPRINE 10 MG TAB PO SCH ×3 (00:13→21:22)
[2018-02-15] MEDS: MEROPENEM 2 GM in SODIUM CHLORIDE 0.9% 100 ML IVPB SCH ×2 (00:15→08:57)
[2018-02-15] MEDS: AZTREONAM 2 GM in SODIUM CHLORIDE 0.9% 100 ML IVPB SCH ×3 (01:05→16:46)
[2018-02-15 02:15] LABS: Glucose,Whole Blood 167 mg/dL (75-99)
[2018-02-15] MEDS: LEVOTHYROXINE 100 MCG TAB PO SCH (06:18)
[2018-02-15 07:11] LABS: Glucose,Whole Blood 221 mg/dL (75-99)
[2018-02-15] MEDS: INSULIN ASPART 100 UNIT/ML 1 ML 10 ML VIAL SQ SCH ×3 (08:17→21:27)
[2018-02-15] MEDS: LORATADINE 10 MG TAB PO SCH (08:17)
[2018-02-15] MEDS: ASPIRIN 81 MG PO SCH (08:17)
[2018-02-15] MEDS: VENLAFAXINE HCL 50 MG TAB PO SCH (08:17)
[2018-02-15] MEDS: PANTOPRAZOLE 40 MG TABLET PO SCH (08:17)
[2018-02-15] MEDS: INSULIN DETEMIR 100 UNIT/ML 10 ML VIAL SQ SCH ×2 (08:17→21:22)
[2018-02-15 08:26] LABS: Anisocytosis Slight; Basophils % (A) 1 %; Eosinophils # (A) 0.3 k/uL (0-0.7); Eosinophils % (A) 6 %; HCT 35.1 % (34.0-46.0); HGB 11.5 gm/dL (11.4-16.0); Hypochromasia Slight; Lymphocytes # (A) 0.8 k/uL (1.0-4.8); Lymphocytes % (A) 19 %; MCH 27.8 pg (25.0-35.0); MCHC 32.7 g/dL (31.0-37.0); MCV 84.9 fL (80.0-100.0); Monocytes # (A) 0.3 k/uL (0-1.0); Monocytes % (A) 6 %; Neutrophils # (A) 2.9 k/uL (1.3-7.7); Neutrophils % (A) 66 %; Poikilocytosis Slight; RBC 4.13 m/uL (3.80-5.40); RDW 16.2 % (11.5-15.5); WBC 4.4 k/uL (3.8-10.6)
[2018-02-15 08:39] LABS: ALT 27 U/L (9-52); AST 25 U/L (14-36); Albumin 2.9 g/dL (3.5-5.0); Alkaline Phosphatase 83 U/L (38-126); Anion Gap 4 mmol/L; Blood Urea Nitrogen 13 mg/dL (7-17); Calcium 8.6 mg/dL (8.4-10.2); Carbon Dioxide 24 mmol/L (22-30); Chloride 111 mmol/L (98-107); Glucose 211 mg/dL (74-99); Potassium 3.9 mmol/L (3.5-5.1); Sodium 139 mmol/L (137-145); Total Bilirubin 0.5 mg/dL (0.2-1.3)
[2018-02-15 08:40] LABS: Platelet Count 66 k/uL (150-450)
[2018-02-15] MEDS: VANCOMYCIN 2,000 MG in SODIUM CHLORIDE 0.9% 500 ML 500 ML IVPB SCH ×2 (09:13→21:21)
[2018-02-15] MEDS: metFORMIN 850 MG TAB PO SCH ×2 (09:14→21:22)
--- NOTE | 2018-02-15 09:49 | P.PN ---
Subjective Progress Note Date: 02/15/18 This is 62-year-old female patient who presented to the emergency room with complaints of unhealing ulcer to right foot. Patient states she's been dealing with right foot ulcer for almost a year. She's had multiple episodes of it opening up. Patient has been followed with wound care center. Patient has been positive for MRSA in the past wound at ulcer site. Patient states her son was helping her put on her socks yesterday and noticed that it was becoming black. Patient has a known past medical history of asthma, cervical cancer, COPD, diabetes mellitus, high disorder, hyperlipidemia, liver cirrhosis, osteoarthritis, sleep apnea and thyroid disorder, anxiety, bipolar and depression. Blood and urine cultures have been ordered. She started on Rocephin and vancomycin. Dr. Nielsen for infectious disease have been consulted. At this time patient denies chest pain or shortness breath. Patient denies nausea vomiting or diarrhea. Patient denies any urinary burning or frequency On 02/14/2018 patient is currently resting comfortably in bed. Patient's right heel wound unchanged from yesterday. At this time patient denies chest pain or shortness breath. Patient denies nausea vomiting or diarrhea. Patient denies any urinary burning or frequency On 02/15/2018 patient is currently resting comfortably in bed. Patient did get rash after starting antibiotic meropenem. Infectious disease is following. Meropenem has been DC'd and is active and Vanco currently IV antibiotics. MRI of the ankle and foot have been ordered per Dr. Nielsen to rule out osteomyelitis. A this time patient denies chest pain or shortness breath. Patient denies nausea vomiting or diarrhea. Patient denies any urinary burning or frequency Objective - Vital Signs Vital signs: Vital Signs Temp 98.5 F 02/15/18 06:28 Pulse 84 02/15/18 06:28 Resp 18 02/15/18 06:28 BP 108/47 02/15/18 06:28 Pulse Ox 98 02/15/18 06:28 Intake & Output 02/14/18 02/15/18 02/15/18 18:59 06:59 18:59 Intake Total 1320 Balance 1320 Weight 152.2 kg Intake: Intake, IV Titration 500 Amount Vancomycin 2,000 mg In 500 Sodium Chloride 0.9% 500 ml 500 ml @ 167 mls/hr IVPB Q12H [facility] Rx#: [id number] Oral 820 Other: Voiding Method Toilet # Voids 2 # Bowel Movements 0 - Exam Head normocephalic Neck supple Lungs clear to auscultation bilaterally no wheezing or crackles Heart regular rate and rhythm S1-S2, no rub or gallop Abdomen is soft nontender nondistended positive bowel sounds no hepatosplenomegaly Extremities no edema. Bottom of right foot black ulcer noted no openings noted Neuro alert and orientated to 3 - Labs CBC & Chem 7: 02/15/18 08:07 02/15/18 08:07 Labs: Abnormal Lab Results - Last 24 Hours (Table) 02/14/18 02/14/18 02/14/18 Range/Units 12:06 17:01 20:33 RDW (11.5-15.5) % Plt Count (150-450) k/uL Lymphocytes # (1.0-4.8) k/uL Chloride (98-107) mmol/L Glucose (74-99) mg/dL POC Glucose (mg/dL) 209 H 171 H 136 H (75-99) mg/dL Total Protein (6.3-8.2) g/dL Albumin (3.5-5.0) g/dL 02/15/18 02/15/18 02/15/18 Range/Units 02:15 07:10 08:07 RDW (11.5-15.5) % Plt Count (150-450) k/uL Lymphocytes # (1.0-4.8) k/uL Chloride 111 H (98-107) mmol/L Glucose 211 H (74-99) mg/dL POC Glucose (mg/dL) 167 H 221 H (75-99) mg/dL Total Protein 6.0 L (6.3-8.2) g/dL Albumin 2.9 L (3.5-5.0) g/dL 02/15/18 Range/Units 08:07 RDW 16.2 H (11.5-15.5) % Plt Count 66 L (150-450) k/uL Lymphocytes # 0.8 L (1.0-4.8) k/uL Chloride (98-107) mmol/L Glucose (74-99) mg/dL POC Glucose (mg/dL) (75-99) mg/dL Total Protein (6.3-8.2) g/dL Albumin (3.5-5.0) g/dL Microbiology - Last 24 Hours (Table) 02/13/18 02:09 Blood Culture - Preliminary Blood No Growth after 48 hours 02/13/18 02:40 Urine Culture - Final Urine,Voided Assessment and Plan Assessment: 1. Nonhealing diabetic right foot ulcer. Patient started on Rocephin and vancomycin. Blood cultures have been ordered. per infectious disease has been switched to meropenem and vancomycin. foot x-ray completed showing no acute fracture. Slight fragmentation of the Achilles spur. There is concern for vasculitis, MRI may be considered. Meropenem has been discontinued due to possible reaction. Patient currently on Bactrim and vancomycin for IV antibiotics. MRI of the foot has been ordered per Dr. Nielsen to rule out osteomyelitis 2. Chronic Thrombocytopenia. Platelet 74. Dr. bowling consulted in the past states from his cytopenia related secondary to multiple comorbidities including liver disease, splenomegaly and worsening with active infection. 3. Diabetes mellitus type 2 uncontrolled blood sugars. Home medications resumed at this time 4. Morbid obesity 5. History of Hyperlipidemia 6. History of Hypothyroidism 7. History of bipolar depression 8. History of Liver cirrhosis 9. History of sleep apnea 10. History of osteomyelitis DVT prophylaxis SCDs due to thrombocytopenia. GI prophylaxis Protonix I performed an examination of the patient and discussed their management with the Nurse Practitioner. I have reviewed the Nurse Practitioner's notes and agree with the documented findings and plan of care
--- NOTE | 2018-02-15 10:34 | CDI ---
Last Revision, March 2017 Documentation Clarification Form Date: 02/15/2018 9:46:58 AM From: Carolina Mackenzie RN, CCDS Admit Date: 02/14/2018 1:42:00 PM Patient Name: David Baker Visit Number: [id number] Discharge Date: ATTENTION: The Clinical Documentation Specialists (CDI) and [facility] Coding Staff appreciate your assistance in clarifying documentation. Please respond to the clarification below the line at the bottom and electronically sign. The CDI & [facility] Coding staff will review the response and follow-up if needed. Please note: Queries are made part of the Legal Health Record. If you have any questions, please contact the author of this message via ITS. Lilibeth Ladd MD 02/14/18 H/P and ongoing progress notes had diabetes mellitus type 2 uncontrolled blood sugars. Patient history/risk factors: Diabetes mellitus, Morbid obesity, Liver cirrhosis , Clinical Indicators: Present with nonhealing diabetic right foot ulcer. Her glucose on admission was 462, 382,244. 366. Vital Signs: 165/67 80 20 98.4 Treatment: BS monitor per protocol Novolog SQ, Levemir SQ per orders Glucophage PO In your professional opinion, can you please clarify Diabetes Mellitus uncontrolled as? Hyperglycemia Hypoglycemia Other, please specify Unable to determine Please continue to document in your progress notes and discharge summary in order to capture severity of illness and risk of mortality. Include clinical findings that support your diagnosis. hyperglycemia MTDD
--- NOTE | 2018-02-15 12:17 | MR ---
EXAMINATION TYPE: MR ankle RT wo/w con DATE OF EXAM: 02/15/2018 COMPARISON: Right foot x-ray from 2 days earlier HISTORY: osteomyelitis of right heel. History of diabetes and neuropathy with right heel pain. CONTRAST: Standard multiplanar, multisequence MRI departmental protocol utilizing 15 mL intravenous Gadavist ga dolinium contrast. Imaging is performed of the right ankle. FINDINGS: There is redemonstration of large inferior calcaneal spur. Just below this there is inferio r heel ulcer with loss of normal subcutaneous fat. Low T1 signal with enhancement is identified sugge sting active infection or cellulitis. Adjacent bone shows no suspicious edema or enhancement however. Plantar fascia remains intact without suspicious signal. There is moderate size superior calcaneal spur. Distal Achilles tendon is intact. There is normal sinus tarsi fat. Hindfoot articulations are maintained. No suspicious osseous edema o r enhancement is seen. Visualized tendons appear within normal limits. Ankle mortise symmetry is maintained. Mild to moderat e subcutaneous edema along plantar surface extending medially in to midfoot level is noted. IMPRESSION: Focal soft tissue infection or cellulitis along inferior aspect of calcaneus up to inferior margin of large calcaneal spur without convincing MRI evidence for acute osteomyelitis or osseous involvement.
[2018-02-15 12:22] LABS: Glucose,Whole Blood 191 mg/dL (75-99)
[2018-02-15] MEDS: MULTIVITAMINS, THERA 1 EACH TAB PO SCH (12:23)
[2018-02-15] MEDS: HYDROcodone/APAP 10-325MG 1 EACH TAB PO PRN (12:25)
[2018-02-15 16:51] LABS: Glucose,Whole Blood 227 mg/dL (75-99)
[2018-02-15] MEDS ORDERED: VANCOMYCIN TROUGH DUE 1 EACH MISC MISCELLANE ONE (19:00)
[2018-02-15 20:46] LABS: Glucose,Whole Blood 212 mg/dL (75-99)
[2018-02-16] MEDS: AZTREONAM 2 GM in SODIUM CHLORIDE 0.9% 100 ML IVPB SCH ×3 (00:03→16:36)
[2018-02-16 02:11] LABS: Glucose,Whole Blood 83 mg/dL (75-99)
[2018-02-16 02:37] LABS: Glucose,Whole Blood 92 mg/dL (75-99)
[2018-02-16] MEDS: LEVOTHYROXINE 100 MCG TAB PO SCH (06:16)
[2018-02-16] MEDS: HYDROcodone/APAP 10-325MG 1 EACH TAB PO PRN (06:16)
[2018-02-16 06:34] VITALS: PULSE 81
[2018-02-16 07:19] LABS: Glucose,Whole Blood 198 mg/dL (75-99)
[2018-02-16] MEDS: INSULIN ASPART 100 UNIT/ML 1 ML 10 ML VIAL SQ SCH ×2 (07:29→17:37)
[2018-02-16] MEDS: CYCLOBENZAPRINE 10 MG TAB PO SCH (07:29)
[2018-02-16] MEDS: PANTOPRAZOLE 40 MG TABLET PO SCH (07:29)
[2018-02-16] MEDS: ASPIRIN 81 MG PO SCH (07:29)
[2018-02-16] MEDS: PREGABALIN 75 MG CAP PO SCH (07:30)
[2018-02-16] MEDS: VENLAFAXINE HCL 50 MG TAB PO SCH (07:30)
[2018-02-16] MEDS: LORATADINE 10 MG TAB PO SCH (07:30)
[2018-02-16] MEDS: VANCOMYCIN 2,000 MG in SODIUM CHLORIDE 0.9% 500 ML 500 ML IVPB SCH (08:28)
[2018-02-16] MEDS: INSULIN DETEMIR 100 UNIT/ML 10 ML VIAL SQ SCH (08:28)
[2018-02-16] MEDS: metFORMIN 850 MG TAB PO SCH (08:30)
[2018-02-16 09:41] LABS: ALT 22 U/L (9-52); AST 24 U/L (14-36); Albumin 3.1 g/dL (3.5-5.0); Alkaline Phosphatase 81 U/L (38-126); Anion Gap 6 mmol/L; Blood Urea Nitrogen 14 mg/dL (7-17); Calcium 8.6 mg/dL (8.4-10.2); Carbon Dioxide 26 mmol/L (22-30); Chloride 110 mmol/L (98-107); Glucose 214 mg/dL (74-99); Potassium 4.7 mmol/L (3.5-5.1); Sodium 142 mmol/L (137-145); Total Bilirubin 0.4 mg/dL (0.2-1.3); Total Protein 6.3 g/dL (6.3-8.2)
[2018-02-16 10:38] LABS: Anisocytosis Slight; HCT 35.3 % (34.0-46.0); Hypochromasia Moderate; MCH 27.1 pg (25.0-35.0); MCHC 31.1 g/dL (31.0-37.0); MCV 87.2 fL (80.0-100.0); Mean Platelet Volume 8.3; Poikilocytosis Slight; RBC 4.05 m/uL (3.80-5.40); WBC 4.9 k/uL (3.8-10.6)
[2018-02-16 10:40] LABS: Platelet Count 74 k/uL (150-450)
[2018-02-16 12:07] LABS: Glucose,Whole Blood 86 mg/dL (75-99)
[2018-02-16 12:57] LABS: Eosinophils # (M) 0.05 k/uL (0-0.7); Lymphocytes # (M) 1.23 k/uL (1.0-4.8); Monocytes # (M) 0.25 k/uL (0-1.0); Neutrophils # (M) 3.38 k/uL (1.3-7.7); Neutrophils % (M) 69 %; Nucleated Red Blood Cells 0 /100 WBC (0-0); Total Cells Counted 100
[2018-02-16] MEDS: MULTIVITAMINS, THERA 1 EACH TAB PO SCH (12:59)
[2018-02-16 15:13] VITALS: BP 103/68; TEMP 97.8
[2018-02-16 15:48] VITALS: RESP 18
--- NOTE | 2018-02-16 16:00 | P.DS ---
Providers Date of admission: 02/14/18 13:42 Expected date of discharge: 02/16/18 Attending physician: Lilibeth Seymour Consults: 02/13/18 03:40 Consult Physician Routine Consulting Provider: Chris Nielsen Consult Reason/Comments: ulcer Do you want consulting provider notified?: Yes Primary care physician: Lilibeth [facility] Course: Diagnosis on Discharge: 1. Nonhealing diabetic right foot ulcer. Patient started on Rocephin and vancomycin. Blood cultures have been ordered. per infectious disease has been switched to meropenem and vancomycin. foot x-ray completed showing no acute fracture. Slight fragmentation of the Achilles spur. There is concern for vasculitis, MRI may be considered. Meropenem has been discontinued due to possible reaction. Patient currently on Bactrim and vancomycin for IV antibiotics. MRI of the foot has been ordered per Dr. Nielsen to rule out osteomyelitis 2. Chronic Thrombocytopenia. Platelet 74. Dr. bowling consulted in the past states from his cytopenia related secondary to multiple comorbidities including liver disease, splenomegaly and worsening with active infection. 3. Diabetes mellitus type 2 uncontrolled blood sugars. Home medications resumed at this time 4. Morbid obesity 5. History of Hyperlipidemia 6. History of Hypothyroidism 7. History of bipolar depression 8. History of Liver cirrhosis 9. History of sleep apnea 10. History of osteomyelitis Hospital course: This is 62-year-old female patient who presented to the emergency room with complaints of unhealing ulcer to right foot. Patient states she's been dealing with right foot ulcer for almost a year. She's had multiple episodes of it opening up. Patient has been followed with wound care center. Patient has been positive for MRSA in the past wound at ulcer site. Patient states her son was helping her put on her socks yesterday and noticed that it was becoming black. Patient has a known past medical history of asthma, cervical cancer, COPD, diabetes mellitus, high disorder, hyperlipidemia, liver cirrhosis, osteoarthritis, sleep apnea and thyroid disorder, anxiety, bipolar and depression. Blood and urine cultures have been ordered. She started on Rocephin and vancomycin. Dr. Nielsen for infectious disease have been consulted. At this time patient denies chest pain or shortness breath. Patient denies nausea vomiting or diarrhea. Patient denies any urinary burning or frequency On 02/14/2018 patient is currently resting comfortably in bed. Patient's right heel wound unchanged from yesterday. At this time patient denies chest pain or shortness breath. Patient denies nausea vomiting or diarrhea. Patient denies any urinary burning or frequency On 02/15/2018 patient is currently resting comfortably in bed. Patient did get rash after starting antibiotic meropenem. Infectious disease is following. Meropenem has been DC'd and is active and Vanco currently IV antibiotics. MRI of the ankle and foot have been ordered per Dr. Nielsen to rule out osteomyelitis. A this time patient denies chest pain or shortness breath. Patient denies nausea vomiting or diarrhea. Patient denies any urinary burning or frequency On 02/16/2018 patient is alert and oriented 3 in no apparent distress she denies any symptoms at this time there is no fever or chills no headache or dizziness no chest pain no shortness of breath no cough no nausea or vomiting no abdominal pain no diarrhea and no urinary symptoms. MRI of the right ankle did not reveal any evidence of acute osteomyelitis, patient was reevaluated again today by Dr. Nielsen and was cleared for discharge on oral antibiotics Cipro. Patient will be discharged home today she will be followed in our office in 2 days she will also follow-up of the wound care clinic Patient Condition at Discharge: Fair Plan - Discharge Summary Discharge Rx Participant: No New Discharge Prescriptions: New Ciprofloxacin HCl [Cipro] 500 mg PO Q12HR #14 tablet Aspirin 81 mg PO DAILY chew Atorvastatin [Lipitor] 40 mg PO HS tab Cyclobenzaprine [Flexeril] 10 mg PO BID tab Loratadine [Claritin] 10 mg PO DAILY tab Multivitamins, Thera [Multivitamin (formulary)] 1 each PO DAILY@1200 tab Pregabalin [Lyrica] 75 mg PO BID cap Venlafaxine HCl [Effexor] 150 mg PO DAILY tab Continue metFORMIN HCL [Glucophage] 850 mg PO BID@999,2099 HYDROcodone/APAP 10-325MG [Elizabeth 10-325] 1 tab PO Q8H PRN #42 tab PRN Reason: Pain Levothyroxine Sodium [Synthroid] 100 mcg PO DAILY Insulin Glargine [Lantus] 100 unit SQ BID INSULIN LISPRO (humaLOG) [humaLOG] 30 units SQ TID Discharge Medication List metFORMIN HCL [Glucophage] 850 mg PO BID@1000,2100 02/18/14 [History] HYDROcodone/APAP 10-325MG [Elizabeth 10-325] 1 tab PO Q8H PRN #42 tab 03/30/17 [Rx] Levothyroxine Sodium [Synthroid] 100 mcg PO DAILY 10/08/17 [History] INSULIN LISPRO (humaLOG) [humaLOG] 30 units SQ TID 02/13/18 [History] Insulin Glargine [Lantus] 100 unit SQ BID 02/13/18 [History] Aspirin 81 mg PO DAILY chew 02/16/18 [Rx] Atorvastatin [Lipitor] 40 mg PO HS tab 02/16/18 [Rx] Ciprofloxacin HCl [Cipro] 500 mg PO Q12HR #14 tablet 02/16/18 [Rx] Cyclobenzaprine [Flexeril] 10 mg PO BID tab 02/16/18 [Rx] Loratadine [Claritin] 10 mg PO DAILY tab 02/16/18 [Rx] Multivitamins, Thera [Multivitamin (formulary)] 1 each PO DAILY@1200 tab [Rx] Pregabalin [Lyrica] 75 mg PO BID cap 02/16/18 [Rx] Venlafaxine HCl [Effexor] 150 mg PO DAILY tab 02/16/18 [Rx] Follow up Appointment(s)/Referral(s): Lilibeth Seymour MD [Primary Care Provider] - 1-2 days Ambulatory/Diagnostic Orders: Ambulatory Miscellaneous Order [MISC.AMB] Location: None Selected Patient Instructions/Handouts: Diabetic Foot Ulcers (DC)
[2018-02-16 17:16] LABS: Glucose,Whole Blood 157 mg/dL (75-99)
--- NOTE | 2018-02-16 22:07 | P.PN ---
Subjective Progress Note Date: 02/16/18 62-year-old female who has multiple medical troubles that includes diabetes mellitus type 2 poorly controlled over time, superobesity which is improving over time patient relates she is comfortable 5X to a 2X in her clothing over the last year. 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 More recently to the summer was having ongoing difficulties with her right heel where she had a right heel ulceration that underwent care at the wound healing center with a total contact cast allowed complete healing of the ulceration in October. The patient relates since then she's been doing relatively well quite recently noticed that she developed a bit of irritation to the plantar heel and she started to have some fevers and chills and constantly presented to the emergency center he was admitted for concerns to sepsis from a diabetic foot infection. The patient has been febrile and has been having chills without jovi rigors. She feels quite poorly. Blood sugars are markedly elevated and she relates it's higher than they've been at home. She relates her home situation has improved. She has the 3 children and grandchild who lives with her, she takes great self- worth in the care of her grandchild. 02/14/2018 patient has had a bit of a difficult day and that she developed significant itching when she received her dose of meropenem no difficulties with vancomycin therapy. X-rays been performed and cannot exclude underlying difficulty in consequently MRI is recommended. Patient is feeling slightly better today but continues to have significant fluctuations of her blood glucose giving concerns underlying infection. 02/16/2018patient is now doing considerably better. MRI has come back now is negative for underlying osteomyelitis. Objective - Vital Signs Vital signs: Vital Signs Temp 97.8 F 02/16/18 15:00 Pulse 81 02/16/18 15:00 Resp 18 02/16/18 15:40 BP 103/68 02/16/18 15:00 Pulse Ox 95 02/16/18 15:00 Intake & Output 02/16/18 02/16/18 02/17/18 06:59 18:59 06:59 Intake Total 1300 Balance 1300 Intake: Oral 1300 Other: Voiding Method Toilet # Voids 2 3 - Exam 62-year-old female presents to hospital with complaints of fever chills and worsening diabetic foot infection right heel HEENT: Anicteric conjunctiva are pink and moist nasal mucosa grossly intact without significant lesions, there is no thrush. Poor dentition Neck: The neck is supple without significant lymphadenopathy or thyromegaly. Lungs: Good bilateral air entry without significant crackles or wheezing. There is no significant bronchial sounds. There is no egophony or dullness. Heart: Regular rate and rhythm with an audible S1-S2, no S3 no S4. There is no significant murmur click or rub, PMI was nondisplaced. Abdomen: Obese Positive bowel sounds soft and nontender without palpable masses or organomegaly. There was no guarding or rebound. Extremities: Upper extremities without lesions. Lower extremities show no acute lesions to the left foot amputation site is well-healed. Right lower extremity reveals the discoloration to the right heel appears to have some mild fluctuance but there is an unstageable deep tissue injury present on admission, no drainage. The site is warm with minimal ascending erythema. No lymphadenopathy is noted to the right inguinal area. No other abnormal lymph nodes are seen either. Neuro: Awake alert oriented to person place and time. There are no acute new gross focal sensory motor deficits. - Labs CBC & Chem 7: 02/16/18 08:48 02/16/18 08:48 Labs: Abnormal Lab Results - Last 24 Hours (Table) 02/16/18 02/16/18 02/16/18 Range/Units 07:17 08:48 08:48 Hgb 11.0 L (11.4-16.0) gm/dL RDW 16.0 H (11.5-15.5) % Plt Count 74 L (150-450) k/uL Chloride 110 H (98-107) mmol/L Glucose 214 H (74-99) mg/dL POC Glucose (mg/dL) 198 H (75-99) mg/dL Albumin 3.1 L (3.5-5.0) g/dL 02/16/18 Range/Units 17:12 Hgb (11.4-16.0) gm/dL RDW (11.5-15.5) % Plt Count (150-450) k/uL Chloride (98-107) mmol/L Glucose (74-99) mg/dL POC Glucose (mg/dL) 157 H (75-99) mg/dL Albumin (3.5-5.0) g/dL Microbiology - Last 24 Hours (Table) 02/13/18 02:09 Blood Culture - Preliminary Blood No Growth after 72 hours - Imaging and Cardiology MRI of right heel shows some inflammation of the tissue but no evidence of underlying osteomyelitis. Assessment and Plan (1) Diabetic infection of right foot Narrative/Plan: 62-year-old female presents to Hospital with concerns to an infection to her right foot at the heel which is the site where she's had a prior diabetic foot ulceration that was healed with a total contact cast. The patient has had difficulty with fever and has evidence of infection to the right foot at the heel. She is in the midst of having a specialty shoe constructed, but is wearing a surgical shoe at this time which likely has been putting undue pressure on the heel resulting in injury and diabetic foot infection. Based on prior cultures meropenem and vancomycin are which he be utilized for now while cultures are process. If any drainage occurs that should be cultured. She needs improved diabetic care hemoglobin A1c is up to 9.8. Multivitamin with zinc will be added. We'll likely need to follow the wound healing center for further offloading. We'll perform x-rays of the site and may need further imaging such as a bone scan to evaluate for deeper infection. 02/14/2018 patient with rash with meropenem therapy today. No difficulties with vancomycin. He has a known penicillin ALLERGY. Consequently meropenem was discontinued will changed to Azactam. MRI is requested to evaluate the possibility of osteomyelitis to the right heel. Offloaded the site. Cultures in process. Continues to have wide fluctuations of her blood glucose which brings concerned underlying infection. 02/16/2018 patient is feeling considerably better. The heel injury is most in drainage at this time. This has evidence of deep tissue injury. This was present on admission. Blood sugars are starting to improve. She is ready for discharge to home. Blood cultures are negative. MRI fails to reveal evidence of osteomyelitis to the right heel. She was discharged home. Oral ciprofloxacin as given. Follow-up in the wound healing center when possible. She has been seen byyazan and chely and has had Diabetic shoes measured she needs to get them up as quickly as she can Status: Acute Code(s): E11.628 - TYPE 2 DIABETES MELLITUS WITH OTHER SKIN COMPLICATIONS; L08.9 - LOCAL INFECTION OF THE SKIN AND SUBCUTANEOUS TISSUE, UNSP SNOMED Code(s): 54542676 (2) Fever and chills Status: Acute Code(s): R50.9 - FEVER, UNSPECIFIED SNOMED Code(s): 127964301 (3) Poorly controlled type 2 diabetes mellitus with neuropathy Status: Acute Code(s): E11.40 - TYPE 2 DIABETES MELLITUS WITH DIABETIC NEUROPATHY, UNSP; E11.65 - TYPE 2 DIABETES MELLITUS WITH HYPERGLYCEMIA SNOMED Code(s): 69713958
== END 2018-02-16 18:40 | disposition home or self-care (01) | DRG 638 ==
LOC: EC 23:57 → 1SOBS 02-13 03:41 → OBSVTOIN 02-14 13:42 → 4MS4W 02-14 16:13
PROVIDERS: ADMIT Internal Medicine; ATTEND Internal Medicine
DX: E11.621 Type 2 diabetes mellitus with foot ulcer (principal); L97.518 Non-pressure chronic ulcer of other part of right foot with other specified severity; Z68.42 Body mass index [BMI] 45.0-49.9, adult; D69.6 Thrombocytopenia, unspecified; E03.9 Hypothyroidism, unspecified; E11.40 Type 2 diabetes mellitus with diabetic neuropathy, unspecified; E11.65 Type 2 diabetes mellitus with hyperglycemia; E66.01 Morbid (severe) obesity due to excess calories; E78.5 Hyperlipidemia, unspecified; G47.30 Sleep apnea, unspecified; H40.9 Unspecified glaucoma; J44.9 Chronic obstructive pulmonary disease, unspecified; K74.60 Unspecified cirrhosis of liver; Z79.4 Long term (current) use of insulin; Z82.49 Family history of ischemic heart disease and other diseases of the circulatory system; Z85.41 Personal history of malignant neoplasm of cervix uteri; Z86.14 Personal history of Methicillin resistant Staphylococcus aureus infection; Z87.891 Personal history of nicotine dependence; Z88.0 Allergy status to penicillin; Z90.710 Acquired absence of both cervix and uterus; Z79.890 Hormone replacement therapy; Z79.891 Long term (current) use of opiate analgesic; Z79.899 Other long term (current) drug therapy; Z89.432 Acquired absence of left foot
CPT/HCPCS: 36415; 71046; 80053; 80202; 81003; 82550; 82553; 83605; 83735; 84100; 84484; 85025; 85610; 85730; 87040; 87086; 93005; 96360; 99285

== ENCOUNTER 2018-02-18 12:09 | Emergency (ER) | payer OTHER ==
[2018-02-18 12:20] VITALS: PULSE 75; TEMP 97.6
[2018-02-18] MEDS ORDERED: LIDOCAINE 1% INJ 10MG/ML (20 ML MDV) SQ ONE (13:19)
--- NOTE | 2018-02-18 13:55 | XR ---
Right wrist HISTORY: Pain and bruising, trauma 4 views of the right wrist Soft tissue calcifications may be vascular. Bone mineralization, joint spaces and alignment are maint ained. Small calcification in volar soft tissues of the hand. IMPRESSION: No fracture or dislocation.
--- NOTE | 2018-02-18 14:02 | CT ---
EXAMINATION TYPE: CT brain [place] DATE OF EXAM: 02/18/2018 COMPARISON: 02/08/2017 HISTORY: Pain fall Unenhanced CT of the brain was performed. The ventricles, basal cisterns and sulci overlying the cerebral convexities demonstrate mild enlargem ent. There is no evidence for intracranial hemorrhage or sulcal effacement. There is decreased attenuatio n about the periventricular white matter and deep white matter of both cerebral hemispheres, compatib le with chronic small vessel ischemia. No mass effects are seen. If symptoms persist consider MRI. Osseous calvarium is intact. Left posterior parietal occipital scalp hematoma. IMPRESSION: 1. Age related atrophic and chronic small vessel ischemic change without acute intracranial process seen at this time. CT Cervical Spine: Unenhanced CT of the cervical spine was performed with bone and soft tissue window settings submitted . Coronal and sagittal reconstruction is obtained. There is normal alignment and prevertebral soft tissues. No evidence for acute cervical fracture . Scattered degenerative disc disease and spondylosis. Biapical scarring. IMPRESSION: 1. No evidence for acute fracture or subluxation of the cervical spine.
--- NOTE | 2018-02-18 14:16 | ED ---
General Adult HPI - General Chief complaint: Wound/Laceration Stated complaint: fall, head lac Time Seen by Provider: 02/18/18 13:10 Source: patient, EMS, RN notes reviewed Mode of arrival: EMS Limitations: no limitations - History of Present Illness Initial comments: 62-year-old female with a couple dictated past medical history presents to the emergency department for chief complaint of laceration and head injury. Patient was standing in front of her fridge when she suddenly "else wobbly" and fell backwards. Patient said she hit her head on the floor. Patient denies taking any blood thinners. Patient denies any loss of consciousness. Patient denies any black vision preceding the fall. Patient denies any neck pain or back pain at this time. She does admit to right wrist pain but does not think it is broken. Patient has no other complaints at this time including shortness of breath, chest pain, abdominal pain, nausea or vomiting, or visual changes. - Related Data Home Medications Medication Instructions Recorded Confirmed metFORMIN HCL [Glucophage] 850 mg PO BID@1000,2100 02/18/14 02/13/18 Levothyroxine Sodium [Synthroid] 100 mcg PO DAILY 10/08/17 02/13/18 INSULIN LISPRO (humaLOG) [humaLOG] 30 units SQ TID 02/13/18 02/13/18 Insulin Glargine [Lantus] 100 unit SQ BID 02/13/18 02/13/18 Previous Rx's Medication Instructions Recorded HYDROcodone/APAP 10-325MG [[place] 1 tab PO Q8H PRN #42 tab 03/30/17 10-325] Aspirin 81 mg PO DAILY chew 02/16/18 Atorvastatin [Lipitor] 40 mg PO HS tab 02/16/18 Ciprofloxacin HCl [Cipro] 500 mg PO Q12HR #14 tablet 02/16/18 Cyclobenzaprine [Flexeril] 10 mg PO BID tab 02/16/18 Loratadine [Claritin] 10 mg PO DAILY tab 02/16/18 Multivitamins, Thera [Multivitamin 1 each PO DAILY@1200 tab 02/16/18 (formulary)] Pregabalin [Lyrica] 75 mg PO BID cap 02/16/18 Venlafaxine HCl [Effexor] 150 mg PO DAILY tab 02/16/18 Allergies Allergy/AdvReac Type Severity Reaction Status Date / Time Penicillins Allergy Anaphylaxis Verified 02/18/18 12:20 meropenem AdvReac Itching Verified 02/18/18 12:20 Review of Systems ROS Statement: Those systems with pertinent positive or pertinent negative responses have been documented in the HPI. ROS Other: All systems not noted in ROS Statement are negative. Past Medical History Past Medical History: Asthma, Cancer, COPD, Diabetes Mellitus, Eye Disorder, Hyperlipidemia, Liver Disease, Musculoskeletal Disorder, Neurologic Disorder, Osteoarthritis (OA), Sleep Apnea/CPAP/BIPAP, Thyroid Disorder Additional Past Medical History / Comment(s): History of osteomyelitis left #3 toe and left calf: 2004. cervical cancer (in remission.) Wound vac. Cirrhosis of the liver r/t diabetes - sees Dr. Barraza History of Any Multi-Drug Resistant Organisms: MRSA Date of last positivie culture/infection: 03/20/17 MDRO Source:: MRSA HEEL Past Surgical History: Section, Cholecystectomy, Hysterectomy, Orthopedic Surgery, Tonsillectomy, Tubal Ligation Additional Past Surgical History / Comment(s): Cataracts and laser surgery for glaucoma. Multiple I&D to left foot and lower leg. Past Anesthesia/Blood Transfusion Reactions: No Reported Reaction Past Psychological History: Anxiety, Bipolar, Depression Smoking Status: Former smoker Past Alcohol Use History: None Reported Past Drug Use History: Marijuana - Past Family History Father Family Medical History: Congestive Heart Failure (CHF), Coronary Artery Disease (CAD), Myocardial Infarction ([place]) Mother Family Medical History: Coronary Artery Disease (CAD), CVA/TIA, Dementia, Myocardial Infarction ([place]) General Exam Limitations: no limitations General appearance: alert, in no apparent distress Head exam: Present: atraumatic, normocephalic, normal inspection Eye exam: Present: normal appearance, PERRL, EOMI. Absent: scleral icterus, conjunctival injection, periorbital swelling ENT exam: Present: normal exam, mucous membranes moist Neck exam: Present: normal inspection, full ROM. Absent: tenderness, meningismus, lymphadenopathy Respiratory exam: Present: normal lung sounds bilaterally. Absent: respiratory distress, wheezes, rales, rhonchi, stridor Cardiovascular Exam: Present: regular rate, normal rhythm, normal heart sounds. Absent: systolic murmur, diastolic murmur, rubs, gallop, clicks Neurological exam: Present: alert, oriented X3, CN II-XII intact. Absent: motor sensory deficit Psychiatric exam: Present: normal affect, normal mood Course Vital Signs 02/18/18 02/18/18 12:13 15:02 Temperature 97.6 F Pulse Rate 75 75 Respiratory 18 16 Rate Blood Pressure 145/65 149/68 O2 Sat by Pulse 98 99 Oximetry Medical Decision Making - Medical Decision Making 62-year-old female presents to the emergency determine for chief complaint of head injury after falling when standing in front of her fridge. She denies loss of consciousness. She denies blood thinners. On exam she is neurologically intact, GCS 15. Doyle HARVEY stapled the patient's 5 cm lac with 10 kathleen. Tetanus immunization given in the emergency department. Patient given concussion precautions. Patient will follow up with primary care in 1-2 days. She'll return here if she has any worsening symptoms. I did call patient to tell her that she needed to have kathleen removed in 10 days and patient states she was aware. Discussed with Dr. Jensen Disposition Clinical Impression: Laceration, Head injury Disposition: HOME SELF-CARE Condition: Good Instructions: Laceration (ED), Concussion (ED), Staple Care (ED) Additional Instructions: Please follow up with primary care in the next 1-2 days. Please take Tylenol for pain. Please return to the emergency department if you have any worsening symptoms. Is patient prescribed a controlled substance at d/c from ED?: No Referrals: Lilibeth Seymour MD [Primary Care Provider] - 1-2 days Time of Disposition: 15:20
[2018-02-18] MEDS ORDERED: DIPH,PERTUS(ACELL)TETVAC-LF 0.5 ML VIAL IM ONE (15:01)
[2018-02-18 15:03] VITALS: BP 149/68; RESP 16
--- NOTE | 2018-02-18 15:28 | ED ---
Medical Decision Making - Medical Decision Making performed primary closure via 10 kathleen for 5CM laceration noted at apex of occiptal region of skull. Disposition Clinical Impression: Laceration, Head injury Disposition: HOME SELF-CARE Condition: Good Instructions: Laceration (ED), Concussion (ED), Staple Care (ED) Additional Instructions: Please follow up with primary care in the next 1-2 days. Please take Tylenol for pain. Please return to the emergency department if you have any worsening symptoms. Is patient prescribed a controlled substance at d/c from ED?: No Referrals: Lilibeth Seymour MD [Primary Care Provider] - 1-2 days Procedures - Laceration Laceration #1 Consent Obtained: verbal consent Time Out Performed: Yes Indication: laceration Site: scalp Size (cm): 5 Description: linear Depth: simple, single layer Anesthetic Used: lidocaine 1% Anesthesia Technique: local infiltration Amount (mls): 4 Pre-repair: wound explored Type of Sutures: other (kathleen ) Size of Sutures: other (kathleen) Number of Sutures: 10
== END 2018-02-18 15:35 | disposition home or self-care (01) ==
LOC: EC 12:09
DX: S01.91XA Laceration without foreign body of unspecified part of head, initial encounter (principal); Z23 Encounter for immunization; E11.9 Type 2 diabetes mellitus without complications; E07.9 Disorder of thyroid, unspecified; G47.30 Sleep apnea, unspecified; Z99.89 Dependence on other enabling machines and devices; Z86.14 Personal history of Methicillin resistant Staphylococcus aureus infection; Z85.41 Personal history of malignant neoplasm of cervix uteri; Z87.891 Personal history of nicotine dependence; Z79.4 Long term (current) use of insulin; Z79.899 Other long term (current) drug therapy; Z88.0 Allergy status to penicillin; Z88.8 Allergy status to other drugs, medicaments and biological substances; W18.09XA Striking against other object with subsequent fall, initial encounter; Y92.008 Other place in unspecified non-institutional (private) residence as the place of occurrence of the external cause
CPT/HCPCS: 73110; 72125; 70450; 90715; 99284; 12002; 90471; J2001

== ENCOUNTER 2018-02-18 23:40 | Emergency (ER) | payer OTHER ==
[2018-02-18 23:54] VITALS: RESP 18
[2018-02-19] MEDS ORDERED: CIPROFLOXACIN HCL 500 MG TAB PO STA (01:30)
--- NOTE | 2018-02-19 01:31 | ED ---
Extremity Problem HPI - General Source: patient Mode of arrival: wheelchair Limitations: no limitations <Deb Hart - Last Filed: 02/19/18 04:00> <Molly Sherman - Last Filed: 02/28/18 00:08> - General Chief complaint: Extremity Problem,Nontraumatic Stated complaint: Foot issues Time Seen by Provider: 02/19/18 00:36 - History of Present Illness Initial comments: 62-year-old female patient presents to the emergency department today for recheck of her right foot wound. Patient did have an admission over the weekend for the same. Patient states she has not yet been able to get her prescription for antibiotics filled. States she has not yet made an appointment with the home care specialist. Patient states that she looked at the wound today and noticed that it had changed in color and appears more black at this time. She denies any increased pain to the wound. She denies any fevers or chills. Denies any drainage from the wound. Patient denies any recent rash, shortness breath, chest pain, abdominal pain, nausea, vomiting, diarrhea, constipation, back pain, numbness, tingling, dizziness, weakness, hematuria, dysuria, urinary urgency, urinary frequency, headache, visual changes , or any other complaints. (Deb Hart) - Related Data Home Medications Medication Instructions Recorded Confirmed metFORMIN HCL [Glucophage] 850 mg PO BID@1000,2100 02/18/14 02/13/18 Levothyroxine Sodium [Synthroid] 100 mcg PO DAILY 10/08/17 02/13/18 INSULIN LISPRO (humaLOG) [humaLOG] 30 units SQ TID 02/13/18 02/13/18 Insulin Glargine [Lantus] 100 unit SQ BID 02/13/18 02/13/18 Previous Rx's Medication Instructions Recorded HYDROcodone/APAP 10-325MG [[place] 1 tab PO Q8H PRN #42 tab 03/30/17 10-325] Aspirin 81 mg PO DAILY chew 02/16/18 Atorvastatin [Lipitor] 40 mg PO HS tab 02/16/18 Ciprofloxacin HCl [Cipro] 500 mg PO Q12HR #14 tablet 02/16/18 Cyclobenzaprine [Flexeril] 10 mg PO BID tab 02/16/18 Loratadine [Claritin] 10 mg PO DAILY tab 02/16/18 Multivitamins, Thera [Multivitamin 1 each PO DAILY@1200 tab 02/16/18 (formulary)] Pregabalin [Lyrica] 75 mg PO BID cap 02/16/18 Venlafaxine HCl [Effexor] 150 mg PO DAILY tab 02/16/18 Allergies Allergy/AdvReac Type Severity Reaction Status Date / Time Penicillins Allergy Anaphylaxis Verified 02/18/18 23:54 meropenem AdvReac Itching Verified 02/18/18 23:54 Review of Systems ROS Other: All systems not noted in ROS Statement are negative. <Deb Hart - Last Filed: 02/19/18 04:00> ROS Other: All systems not noted in ROS Statement are negative. <Molly Sherman - Last Filed: 02/28/18 00:08> ROS Statement: Those systems with pertinent positive or pertinent negative responses have been documented in the HPI. Past Medical History Past Medical History: Asthma, Cancer, COPD, Diabetes Mellitus, Eye Disorder, Hyperlipidemia, Liver Disease, Musculoskeletal Disorder, Neurologic Disorder, Osteoarthritis (OA), Sleep Apnea/CPAP/BIPAP, Thyroid Disorder Additional Past Medical History / Comment(s): History of osteomyelitis left #3 toe and left calf: 2004. cervical cancer (in remission.) Wound vac. Cirrhosis of the liver r/t diabetes - sees Dr. Barraza History of Any Multi-Drug Resistant Organisms: MRSA Date of last positivie culture/infection: 03/20/17 MDRO Source:: MRSA HEEL Past Surgical History: Section, Cholecystectomy, Hysterectomy, Orthopedic Surgery, Tonsillectomy, Tubal Ligation Additional Past Surgical History / Comment(s): Cataracts and laser surgery for glaucoma. Multiple I&D to left foot and lower leg. Past Anesthesia/Blood Transfusion Reactions: No Reported Reaction Past Psychological History: Anxiety, Bipolar, Depression Smoking Status: Former smoker Past Alcohol Use History: None Reported Past Drug Use History: Marijuana - Past Family History Father Family Medical History: Congestive Heart Failure (CHF), Coronary Artery Disease (CAD), Myocardial Infarction ([place]) Mother Family Medical History: Coronary Artery Disease (CAD), CVA/TIA, Dementia, Myocardial Infarction ([place]) <Deb Hart - Last Filed: 02/19/18 04:00> General Exam Limitations: no limitations General appearance: alert, in no apparent distress, other (This is a well- developed, well-nourished adult female patient in no acute distress. Vital signs upon presentation are temperature 98.5F, pulse 75, respirations 18, blood pressure 178/68, pulse ox 99% on room air.) Eye exam: Present: normal appearance, PERRL, EOMI. Absent: scleral icterus, conjunctival injection, periorbital swelling ENT exam: Present: normal exam, normal oropharynx, mucous membranes moist Respiratory exam: Present: normal lung sounds bilaterally. Absent: respiratory distress, wheezes, rales, rhonchi, stridor Cardiovascular Exam: Present: regular rate, normal rhythm, normal heart sounds. Absent: systolic murmur, diastolic murmur, rubs, gallop, clicks Extremities exam: Present: full ROM, normal capillary refill, other (Patient has 1cm x4cm wound to the heel of the right foot. There is dark puple discoloration. No surrounding erythema. No drainage. Skin is otherwise pink, warm, dry. Cap refill less than 3 seconds. Pedal pulses 2+ and equal bilaterally.). Absent: normal inspection, tenderness, pedal edema, joint swelling, calf tenderness Neurological exam: Present: alert, oriented X3, CN II-XII intact Psychiatric exam: Present: normal affect, normal mood Skin exam: Present: warm, dry, intact, normal color. Absent: rash <Deb Hart M - Last Filed: 02/19/18 04:00> Vital Signs 02/18/18 02/19/18 23:52 01:51 Temperature 98.5 F 98.0 F Pulse Rate 75 80 Respiratory 18 18 Rate Blood Pressure 178/68 145/64 O2 Sat by Pulse 99 97 Oximetry Medical Decision Making <Deb Hart M - Last Filed: 02/19/18 04:00> <Molly Sherman - Last Filed: 02/28/18 00:08> - Medical Decision Making 62-year-old female patient presented to the emergency department today for reevaluation of a wound to the right heel. Physical examination did reveal a 1 cm x 4 cm wound to the heel that appears chronic in nature. There is purplish discoloration. There is no drainage at this time. There is no surrounding erythema. Patient is afebrile, vital signs stable. She was recently admitted for this and discharged home with prescription for antibiotics which she has not yet filled. She is also not yet made an appointment with the wound care follow-up as directed. We will give her dose of her antibiotic tonight, she is urged to fill this prescription in the morning and take these as directed. She is instructed to follow-up with wound care as soon as possible, she is instructed to call the office in the morning. Return parameters were discussed in detail. She verbalizes understanding and agrees with this plan. (Deb Hart) I was available for consultation in the emergency department. The history and physical exam were done by the midlevel provider. I was consulted for this patient's care. I reviewed the case with the midlevel provider and based on their presentation of the patient, I agree with the assessment, medical decision making and plan of care as documented. (Molly Sherman) Disposition Is patient prescribed a controlled substance at d/c from ED?: No Time of Disposition: 01:31 <Deb Hart - Last Filed: 02/19/18 04:00> <Molly Sherman - Last Filed: 02/28/18 00:08> Clinical Impression: Chronic wound of extremity Disposition: HOME SELF-CARE Condition: Good Instructions: Chronic Wound Care (ED), Chronic Wounds (ED) Additional Instructions: Call Dr. Nielsen' office in the morning for an appointment for wound care to the foot. Fill antibiotic prescription and take as directed. Return immediately for any new, worsening, or concerning symptoms. Referrals: Lilibeth Seymour MD [Primary Care Provider] - 1-2 days
[2018-02-19 01:52] VITALS: BP 145/64; PULSE 80; TEMP 98
== END 2018-02-19 01:52 | disposition home or self-care (01) ==
LOC: EC 23:40
DX: S91.301A Unspecified open wound, right foot, initial encounter (principal); E11.69 Type 2 diabetes mellitus with other specified complication; M86.9 Osteomyelitis, unspecified; E07.9 Disorder of thyroid, unspecified; G47.30 Sleep apnea, unspecified; Z87.891 Personal history of nicotine dependence; Z86.14 Personal history of Methicillin resistant Staphylococcus aureus infection; Z85.41 Personal history of malignant neoplasm of cervix uteri; Z99.89 Dependence on other enabling machines and devices; Z90.49 Acquired absence of other specified parts of digestive tract; Z90.710 Acquired absence of both cervix and uterus; Z98.51 Tubal ligation status; Z98.890 Other specified postprocedural states; Z79.4 Long term (current) use of insulin; Z79.899 Other long term (current) drug therapy; Z88.0 Allergy status to penicillin; Z88.1 Allergy status to other antibiotic agents; X58.XXXA Exposure to other specified factors, initial encounter
CPT/HCPCS: 99282 ×2; 12002; 90471; 99284; 73110; 72125; 70450; 90715; J2001

== ENCOUNTER 2018-04-05 00:25 | Emergency (ER) | payer OTHER ==
[2018-04-05 00:37] VITALS: TEMP 98.1
--- NOTE | 2018-04-05 01:06 | ED ---
Wound/Laceration HPI - General Source: patient, RN notes reviewed, old records reviewed Mode of arrival: wheelchair Limitations: no limitations <Mariana Sierra - Last Filed: 04/06/18 00:12> <Molly hSerman - Last Filed: 04/07/18 02:12> - General Chief Complaint: Wound/Laceration Stated Complaint: DIABETIC SORE Time Seen by Provider: 04/05/18 00:58 - History of Present Illness Initial Comments: Patient is a 62 year old female with a history of diabetes with concerns of infected R heel sore. Patient has had this sore and is managed at the wound care clinic, but she reports that her son saw a slight amount of increased drainage tonight. She is on no antibiotics currently. She sees podiatry weekly. She denies trauma to the area. Patient also presents today and is quite upset about homelife. She reports that her granddaughter was taken by CPS due to her son's drug addition and she is very distraught about this. Patient denies suicidal thoughts. She states that she is streesed and trying to fight for custody of the granddaughter. (Mariana Sierra) - Related Data Home Medications Medication Instructions Recorded Confirmed metFORMIN HCL [Glucophage] 850 mg PO BID@1000,2100 02/18/14 02/13/18 Levothyroxine Sodium [Synthroid] 100 mcg PO DAILY 10/08/17 02/13/18 INSULIN LISPRO (humaLOG) [humaLOG] 30 units SQ TID 02/13/18 02/13/18 Insulin Glargine [Lantus] 100 unit SQ BID 02/13/18 02/13/18 Previous Rx's Medication Instructions Recorded HYDROcodone/APAP 10-325MG [[place] 1 tab PO Q8H PRN #42 tab 03/30/17 10-325] Aspirin 81 mg PO DAILY chew 02/16/18 Atorvastatin [Lipitor] 40 mg PO HS tab 02/16/18 Ciprofloxacin HCl [Cipro] 500 mg PO Q12HR #14 tablet 02/16/18 Cyclobenzaprine [Flexeril] 10 mg PO BID tab 02/16/18 Loratadine [Claritin] 10 mg PO DAILY tab 02/16/18 Multivitamins, Thera [Multivitamin 1 each PO DAILY@1200 tab 02/16/18 (formulary)] Pregabalin [Lyrica] 75 mg PO BID cap 02/16/18 Venlafaxine HCl [Effexor] 150 mg PO DAILY tab 02/16/18 Nystatin [Nystop] 1 applic TOPICAL BID #60 gm 04/05/18 Sulfamethox-Tmp 800-160Mg [Bactrim 1 tab PO DAILY #14 tab 04/05/18 DS 800-160 mg] Allergies Allergy/AdvReac Type Severity Reaction Status Date / Time Penicillins Allergy Anaphylaxis Verified 04/05/18 00:37 meropenem AdvReac Itching Verified 04/05/18 00:37 Review of Systems ROS Other: All systems not noted in ROS Statement are negative. <Mariana Sierra - Last Filed: 04/06/18 00:12> ROS Other: All systems not noted in ROS Statement are negative. <Molly Sherman - Last Filed: 04/07/18 02:12> ROS Statement: Those systems with pertinent positive or pertinent negative responses have been documented in the HPI. Past Medical History Past Medical History: Asthma, Cancer, COPD, Diabetes Mellitus, Eye Disorder, Hyperlipidemia, Liver Disease, Musculoskeletal Disorder, Neurologic Disorder, Osteoarthritis (OA), Sleep Apnea/CPAP/BIPAP, Thyroid Disorder Additional Past Medical History / Comment(s): History of osteomyelitis left #3 toe and left calf: 2004. cervical cancer (in remission.) Wound vac. Cirrhosis of the liver r/t diabetes - sees Dr. Barraza History of Any Multi-Drug Resistant Organisms: MRSA Date of last positivie culture/infection: 03/20/17 MDRO Source:: MRSA HEEL Past Surgical History: Section, Cholecystectomy, Hysterectomy, Orthopedic Surgery, Tonsillectomy, Tubal Ligation Additional Past Surgical History / Comment(s): Cataracts and laser surgery for glaucoma. Multiple I&D to left foot and lower leg. Past Anesthesia/Blood Transfusion Reactions: No Reported Reaction Past Psychological History: Anxiety, Bipolar, Depression Smoking Status: Former smoker Past Alcohol Use History: None Reported Past Drug Use History: Marijuana - Past Family History Father Family Medical History: Congestive Heart Failure (CHF), Coronary Artery Disease (CAD), Myocardial Infarction ([place]) Mother Family Medical History: Coronary Artery Disease (CAD), CVA/TIA, Dementia, Myocardial Infarction ([place]) <Mariana Sierra - Last Filed: 04/06/18 00:12> General Exam Limitations: no limitations General appearance: alert, in no apparent distress Head exam: Present: atraumatic, normocephalic, normal inspection Eye exam: Present: normal appearance, PERRL, EOMI. Absent: scleral icterus, conjunctival injection, periorbital swelling ENT exam: Present: normal exam, mucous membranes moist Neck exam: Present: normal inspection. Absent: tenderness, meningismus, lymphadenopathy Respiratory exam: Present: normal lung sounds bilaterally. Absent: respiratory distress, wheezes, rales, rhonchi, stridor Cardiovascular Exam: Present: regular rate, normal rhythm, normal heart sounds. Absent: systolic murmur, diastolic murmur, rubs, gallop, clicks GI/Abdominal exam: Present: soft, normal bowel sounds. Absent: distended, tenderness, guarding, rebound, rigid Extremities exam: Present: normal inspection, full ROM, normal capillary refill , other (small 1cm wound over R heel, multiple stages of healing. No drainage noted. Normal cap refill. Diminished sensation, patient statessensation is chornic. ). Absent: tenderness, pedal edema, joint swelling, calf tenderness Back exam: Present: normal inspection Neurological exam: Present: alert, oriented X3, CN II-XII intact Psychiatric exam: Present: normal affect, normal mood Skin exam: Present: warm, dry, intact, normal color, rash ([place] intertrigo under panus) <Mariana Sierra - Last Filed: 04/06/18 00:12> <Molly Sherman P - Last Filed: 04/07/18 02:12> - General Exam Comments Initial Comments: This is a 62 year old female, no distress. (Mariana Sierra) Vital Signs 04/05/18 04/05/18 00:34 01:39 Temperature 98.1 F 98.1 F Pulse Rate 83 81 Respiratory 16 18 Rate Blood Pressure 187/63 148/60 O2 Sat by Pulse 97 98 Oximetry Medical Decision Making <Mariana Sierra - Last Filed: 04/06/18 00:12> <Molly Sherman P - Last Filed: 04/07/18 02:12> - Medical Decision Making Patient is a 62 year old female for evaluation of R heel wound. She was concerned due to increased drainage. On exam, the wound appears in multiple stages of healing and is 1cm. No drainage or erythema noted. Attempted to obtain wound culture, with no drainge on swab. Patient also is requesting refill of nystatin powder for dal[place] intertrigo. Patient given short course of bactrim, advised to start this pending culture results. Discussed she can follow up with wound care. Return parameters discussed. (Mariana Sierra) I was available for consultation in the emergency department. The history and physical exam were done by the midlevel provider. I was consulted for this patient's care. I reviewed the case with the midlevel provider and based on their presentation of the patient, I agree with the assessment, medical decision making and plan of care as documented. (Molly Sherman) Disposition Is patient prescribed a controlled substance at d/c from ED?: No Time of Disposition: 01:09 <Mariana Sierra - Last Filed: 04/06/18 00:12> <Molly Sherman - Last Filed: 04/07/18 02:12> Clinical Impression: Chronic wound of extremity, Candidiasis, intertrigo Disposition: HOME SELF-CARE Condition: Good Instructions: Chronic Wound Care (ED) Additional Instructions: Patient was follow-up with primary care provider. Return to emergency department if any alarming signs or symptoms occur. Untreated the wound. Take the medication as prescribed. Follow-up with your wound care center. Prescriptions: Nystatin [Nystop] 1 applic TOPICAL BID #60 gm Sulfamethox-Tmp 800-160Mg [Bactrim DS 800-160 mg] 1 tab PO DAILY #14 tab Referrals: Lilibeth Seymour MD [Primary Care Provider] - 1-2 days
[2018-04-05 01:40] VITALS: BP 148/60; PULSE 81; RESP 18
== END 2018-04-05 01:40 | disposition home or self-care (01) ==
LOC: EC 00:25
DX: B37.2 Candidiasis of skin and nail (principal); L30.4 Erythema intertrigo; L97.419 Non-pressure chronic ulcer of right heel and midfoot with unspecified severity; E11.9 Type 2 diabetes mellitus without complications; G47.30 Sleep apnea, unspecified; E07.9 Disorder of thyroid, unspecified; Z87.891 Personal history of nicotine dependence; Z88.0 Allergy status to penicillin; Z88.1 Allergy status to other antibiotic agents; Z79.4 Long term (current) use of insulin; Z79.899 Other long term (current) drug therapy; Z99.89 Dependence on other enabling machines and devices; Z85.41 Personal history of malignant neoplasm of cervix uteri; Z90.710 Acquired absence of both cervix and uterus
CPT/HCPCS: 87070; 87205; 99283

== ENCOUNTER 2018-04-07 23:39 | Inpatient (IN) | payer OTHER ==
[2018-04-08] MEDS ORDERED: LORazepam 1 MG TAB PO STA (00:17)
[2018-04-08] MEDS ORDERED: IPRATROPIUM-ALBUTEROL 3 ML NEB INHALATION STA (00:19)
--- NOTE | 2018-04-08 00:40 | ED ---
SOB HPI - General Chief Complaint: Shortness of Breath Stated Complaint: anxiety Time Seen by Provider: 04/07/18 23:47 Source: patient, EMS Mode of arrival: EMS Limitations: physical limitation - History of Present Illness Initial Comments: Patient is a 62-year-old female with PMH as documented who is very well known to our ED. Patient presents today via EMS for evaluation of anxiety and shortness of breath. Patient reports that her granddaughter has recently been taken from the family and is to be placed in foster care. Patient reports that this evening she was looking at pictures of her granddaughter when she began crying and couldnt stop. She reports she was crying for about 45 minutes and began to feel like she couldnt catch her breath so EMS was contacted. Upon arrival patient reports she is already feeling better but does report her entire body hurts. Patient states she is eager to go home so she can visit her granddaughter tomorrow before she is placed with a foster family outside of this area. Patient is currently on antibiotics for chronic foot ulcer. She does follow with wound care for this. - Related Data Home Medications Medication Instructions Recorded Confirmed metFORMIN HCL [Glucophage] 850 mg PO BID@1000,2100 02/18/14 02/13/18 Levothyroxine Sodium [Synthroid] 100 mcg PO DAILY 10/08/17 02/13/18 INSULIN LISPRO (humaLOG) [humaLOG] 30 units SQ TID 02/13/18 02/13/18 Insulin Glargine [Lantus] 100 unit SQ BID 02/13/18 02/13/18 Previous Rx's Medication Instructions Recorded HYDROcodone/APAP 10-325MG [[place] 1 tab PO Q8H PRN #42 tab 03/30/17 10-325] Aspirin 81 mg PO DAILY chew 02/16/18 Atorvastatin [Lipitor] 40 mg PO HS tab 02/16/18 Ciprofloxacin HCl [Cipro] 500 mg PO Q12HR #14 tablet 02/16/18 Cyclobenzaprine [Flexeril] 10 mg PO BID tab 02/16/18 Loratadine [Claritin] 10 mg PO DAILY tab 02/16/18 Multivitamins, Thera [Multivitamin 1 each PO DAILY@1200 tab 02/16/18 (formulary)] Pregabalin [Lyrica] 75 mg PO BID cap 02/16/18 Venlafaxine HCl [Effexor] 150 mg PO DAILY tab 02/16/18 Nystatin [Nystop] 1 applic TOPICAL BID #60 gm 04/05/18 Sulfamethox-Tmp 800-160Mg [Bactrim 1 tab PO DAILY #14 tab 04/05/18 DS 800-160 mg] Allergies Allergy/AdvReac Type Severity Reaction Status Date / Time Penicillins Allergy Anaphylaxis Verified 04/07/18 23:57 meropenem AdvReac Itching Verified 04/07/18 23:57 Review of Systems ROS Statement: Those systems with pertinent positive or pertinent negative responses have been documented in the HPI. ROS Other: All systems not noted in ROS Statement are negative. Past Medical History Past Medical History: Asthma, Cancer, COPD, Diabetes Mellitus, Eye Disorder, Hyperlipidemia, Liver Disease, Musculoskeletal Disorder, Neurologic Disorder, Osteoarthritis (OA), Sleep Apnea/CPAP/BIPAP, Thyroid Disorder Additional Past Medical History / Comment(s): History of osteomyelitis left #3 toe and left calf: 2004. cervical cancer (in remission.) Wound vac. Cirrhosis of the liver r/t diabetes - sees Dr. Barraza History of Any Multi-Drug Resistant Organisms: MRSA Date of last positivie culture/infection: 03/20/17 MDRO Source:: MRSA HEEL Past Surgical History: Section, Cholecystectomy, Hysterectomy, Orthopedic Surgery, Tonsillectomy, Tubal Ligation Additional Past Surgical History / Comment(s): Cataracts and laser surgery for glaucoma. Multiple I&D to left foot and lower leg. Past Anesthesia/Blood Transfusion Reactions: No Reported Reaction Past Psychological History: Anxiety, Bipolar, Depression Smoking Status: Former smoker Past Alcohol Use History: None Reported Past Drug Use History: Marijuana - Past Family History Father Family Medical History: Congestive Heart Failure (CHF), Coronary Artery Disease (CAD), Myocardial Infarction ([place]) Mother Family Medical History: Coronary Artery Disease (CAD), CVA/TIA, Dementia, Myocardial Infarction ([place]) General Exam - General Exam Comments Initial Comments: Physical Exam GENERAL: Chronically ill appearing, morbidly obese female in no acute distress HENT: Normocephalic, Atraumatic. EYES: PERRL, EOMI PULMONARY: Tachypnea with mild expiratory wheeze CARDIOVASCULAR: There is a regular rate and rhythm without any murmurs gallops or rubs. ABDOMEN: Obese, Soft and nontender with normal bowel sounds. SKIN: excoriations on bilateral arms - history of bed bugs : Deferred NEUROLOGIC: Patient is alert and oriented x3. Moving all extremities spontaneously MUSCULOSKELETAL: Normal extremities with adequate strength and full range of motion. No lower extremity swelling or edema. No calf tenderness. PSYCHIATRIC: Anxious, situational depression Limitations: no limitations Limitations: physical limitation Course Vital Signs 04/07/18 04/08/18 04/08/18 23:51 00:36 00:46 Temperature 100.5 F H Pulse Rate 92 92 90 Respiratory 18 18 18 Rate Blood Pressure 156/49 O2 Sat by Pulse 96 Oximetry 04/08/18 04/08/18 04/08/18 00:53 01:54 02:25 Temperature 101.7 F H 99.3 F Pulse Rate 97 96 Respiratory 16 16 Rate Blood Pressure 147/75 183/56 O2 Sat by Pulse 96 96 Oximetry 04/08/18 03:30 Temperature Pulse Rate 84 Respiratory 20 Rate Blood Pressure 161/81 O2 Sat by Pulse 98 Oximetry Medical Decision Making - Medical Decision Making The patient was seen and evaluated history was obtained from the patient and review of medical record Patient presented crying and reporting shortness of breath stating that she feels she's having a panic attack. She did have some mild expiratory wheezing so a breathing treatment and by mouth Ativan were ordered. Patient was noted to have a temperature of 100.5. An complaining of body aches with influenza swab chest x-ray were obtained S x-ray was unremarkable After breathing treatment Ativan patient was reassessed at this time she has noted be febrile to 101.7 and which time it was decided to pursue a full sepsis workup Labs reveal leukocytosis, lactic acidosis Analysis chest x-ray and influenza are negative At this time I suspect the patient's fever is secondary to her foot infection. We will plan to admit the patient for sepsis secondary to infection. Patient is agreeable with this plan. Patient's fever broke after antipyretics. Patient care was discussed with patient's primary care physician Dr. Seymour who accepts the admission - Lab Data Result diagrams: 04/08/18 01:48 04/08/18 01:48 Lab Results 04/08/18 04/08/18 04/08/18 Range/Units 00:43 01:48 01:48 WBC 12.7 H (3.8-10.6) k/uL RBC 4.89 (3.80-5.40) m/uL Hgb 13.0 (11.4-16.0) gm/dL Hct 43.3 (34.0-46.0) % MCV 88.4 (80.0-100.0) fL MCH 26.6 (25.0-35.0) pg MCHC 30.1 L (31.0-37.0) g/dL RDW 16.5 H (11.5-15.5) % Plt Count 79 L (150-450) k/uL Neutrophils % 90 % Lymphocytes % 5 % Monocytes % 4 % Eosinophils % 1 % Basophils % 0 % Neutrophils # 11.4 H (1.3-7.7) k/uL Lymphocytes # 0.6 L (1.0-4.8) k/uL Monocytes # 0.5 (0-1.0) k/uL Eosinophils # 0.2 (0-0.7) k/uL Basophils # 0.0 (0-0.2) k/uL Manual Slide Review Performed Hypochromasia Moderate Poikilocytosis Slight Anisocytosis Slight PT (9.0-12.0) sec INR (<1.2) APTT (22.0-30.0) sec Sodium (137-145) mmol/L Potassium (3.5-5.1) mmol/L Chloride (98-107) mmol/L Carbon Dioxide (22-30) mmol/L Anion Gap mmol/L BUN (7-17) mg/dL Creatinine (0.52-1.04) mg/dL Est GFR (CKD-EPI)AfAm (>60 ml/min/1.73 sqM) Est GFR (CKD-EPI)NonAf (>60 ml/min/1.73 sqM) Glucose (74-99) mg/dL Lactic Ac Sepsis Rflx Plasma Lactic Acid Mraquise (0.7-2.0) mmol/L Calcium (8.4-10.2) mg/dL Total Bilirubin (0.2-1.3) mg/dL AST (14-36) U/L ALT (9-52) U/L Alkaline Phosphatase (38-126) U/L Total Creatine Kinase 46 (30-135) U/L CK-MB (CK-2) 0.9 (0.0-2.4) ng/mL CK-MB (CK-2) Rel Index 2.0 Troponin I <0.012 (0.000-0.034) ng/mL C-Reactive Protein (<10.0) mg/L Total Protein (6.3-8.2) g/dL Albumin (3.5-5.0) g/dL Urine Color Urine Appearance (Clear) Urine pH (5.0-8.0) Ur Specific [place] (1.001-1.035) Urine Protein (Negative) Urine Glucose (UA) (Negative) Urine Ketones (Negative) Urine Blood (Negative) Urine Nitrite (Negative) Urine Bilirubin (Negative) Urine Urobilinogen (<2.0) mg/dL Ur Leukocyte Esterase (Negative) Urine RBC (0-5) /hpf Urine WBC (0-5) /hpf Ur Squamous Epith Cells (0-4) /hpf Urine Mucus (None) /hpf Influenza Type A RNA Not Detected (Not Detectd) Influenza Type B (PCR) Not Detected (Not Detectd) 04/08/18 04/08/18 04/08/18 Range/Units 01:48 01:48 01:48 WBC (3.8-10.6) k/uL RBC (3.80-5.40) m/uL Hgb (11.4-16.0) gm/dL Hct (34.0-46.0) % MCV (80.0-100.0) fL MCH (25.0-35.0) pg MCHC (31.0-37.0) g/dL RDW (11.5-15.5) % Plt Count (150-450) k/uL Neutrophils % % Lymphocytes % % Monocytes % % Eosinophils % % Basophils % % Neutrophils # (1.3-7.7) k/uL Lymphocytes # (1.0-4.8) k/uL Monocytes # (0-1.0) k/uL Eosinophils # (0-0.7) k/uL Basophils # (0-0.2) k/uL Manual Slide Review Hypochromasia Poikilocytosis Anisocytosis PT 11.5 (9.0-12.0) sec INR 1.1 (<1.2) APTT 24.4 (22.0-30.0) sec Sodium 138 (137-145) mmol/L Potassium 3.7 (3.5-5.1) mmol/L Chloride 104 (98-107) mmol/L Carbon Dioxide 23 (22-30) mmol/L Anion Gap 11 mmol/L BUN 16 (7-17) mg/dL Creatinine 0.70 (0.52-1.04) mg/dL Est GFR (CKD-EPI)AfAm >90 (>60 ml/min/1.73 sqM) Est GFR (CKD-EPI)NonAf >90 (>60 ml/min/1.73 sqM) Glucose 460 H (74-99) mg/dL Lactic Ac Sepsis Rflx Plasma Lactic Acid Marquise 4.0 H* (0.7-2.0) mmol/L Calcium 9.0 (8.4-10.2) mg/dL Total Bilirubin 0.7 (0.2-1.3) mg/dL AST 28 (14-36) U/L ALT 29 (9-52) U/L Alkaline Phosphatase 118 (38-126) U/L Total Creatine Kinase (30-135) U/L CK-MB (CK-2) (0.0-2.4) ng/mL CK-MB (CK-2) Rel Index Troponin I (0.000-0.034) ng/mL C-Reactive Protein (<10.0) mg/L Total Protein 7.4 (6.3-8.2) g/dL Albumin 3.9 (3.5-5.0) g/dL Urine Color Urine Appearance (Clear) Urine pH (5.0-8.0) Ur Specific [place] (1.001-1.035) Urine Protein (Negative) Urine Glucose (UA) (Negative) Urine Ketones (Negative) Urine Blood (Negative) Urine Nitrite (Negative) Urine Bilirubin (Negative) Urine Urobilinogen (<2.0) mg/dL Ur Leukocyte Esterase (Negative) Urine RBC (0-5) /hpf Urine WBC (0-5) /hpf Ur Squamous Epith Cells (0-4) /hpf Urine Mucus (None) /hpf Influenza Type A RNA (Not Detectd) Influenza Type B (PCR) (Not Detectd) 04/08/18 04/08/18 04/08/18 Range/Units 01:48 01:48 02:26 WBC (3.8-10.6) k/uL RBC (3.80-5.40) m/uL Hgb (11.4-16.0) gm/dL Hct (34.0-46.0) % MCV (80.0-100.0) fL MCH (25.0-35.0) pg MCHC (31.0-37.0) g/dL RDW (11.5-15.5) % Plt Count (150-450) k/uL Neutrophils % % Lymphocytes % % Monocytes % % Eosinophils % % Basophils % % Neutrophils # (1.3-7.7) k/uL Lymphocytes # (1.0-4.8) k/uL Monocytes # (0-1.0) k/uL Eosinophils # (0-0.7) k/uL Basophils # (0-0.2) k/uL Manual Slide Review Hypochromasia Poikilocytosis Anisocytosis PT (9.0-12.0) sec INR (<1.2) APTT (22.0-30.0) sec Sodium (137-145) mmol/L Potassium (3.5-5.1) mmol/L Chloride (98-107) mmol/L Carbon Dioxide (22-30) mmol/L Anion Gap mmol/L BUN (7-17) mg/dL Creatinine (0.52-1.04) mg/dL Est GFR (CKD-EPI)AfAm (>60 ml/min/1.73 sqM) Est GFR (CKD-EPI)NonAf (>60 ml/min/1.73 sqM) Glucose (74-99) mg/dL Lactic Ac Sepsis Rflx Y Plasma Lactic Acid Marquise (0.7-2.0) mmol/L Calcium (8.4-10.2) mg/dL Total Bilirubin (0.2-1.3) mg/dL AST (14-36) U/L ALT (9-52) U/L Alkaline Phosphatase (38-126) U/L Total Creatine Kinase (30-135) U/L CK-MB (CK-2) (0.0-2.4) ng/mL CK-MB (CK-2) Rel Index Troponin I (0.000-0.034) ng/mL C-Reactive Protein 22.3 H (<10.0) mg/L Total Protein (6.3-8.2) g/dL Albumin (3.5-5.0) g/dL Urine Color Light Yellow Urine Appearance Clear (Clear) Urine pH 5.0 (5.0-8.0) Ur Specific [place] 1.023 (1.001-1.035) Urine Protein Negative (Negative) Urine Glucose (UA) 4+ H (Negative) Urine Ketones Negative (Negative) Urine Blood Trace H (Negative) Urine Nitrite Negative (Negative) Urine Bilirubin Negative (Negative) Urine Urobilinogen <2.0 (<2.0) mg/dL Ur Leukocyte Esterase Negative (Negative) Urine RBC 1 (0-5) /hpf Urine WBC 2 (0-5) /hpf Ur Squamous Epith Cells 2 (0-4) /hpf Urine Mucus Rare H (None) /hpf Influenza Type A RNA (Not Detectd) Influenza Type B (PCR) (Not Detectd) - EKG Data -: EKG Interpreted by Oh EKG Comments: EKG obtained at 12:40 AM, rate is 97 rhythm is sinus there is a leftward axis, there are normal intervals, RI 150, QRS 86, QTC 431. There are no acute ST elevations or depressions there is no evidence of acute ischemia or infarction. Disposition Clinical Impression: Sepsis, Morbid obesity with BMI of 45.0-49.9, adult, COPD exacerbation, Diabetic foot ulcer Disposition: ADMITTED IP TO THIS HOSP Is patient prescribed a controlled substance at d/c from ED?: No Referrals: Lilibeth Seymour MD [Primary Care Provider] - 1-2 days
--- NOTE | 2018-04-08 00:58 | XR ---
EXAMINATION TYPE: XR chest 1V DATE OF EXAM: 04/08/2018 COMPARISON: 02/13/2018 HISTORY: Weakness TECHNIQUE: Single frontal view of the chest is obtained. FINDINGS: Heart and mediastinum are normal. Lungs are clear. Diaphragm is normal. Bony thorax is int act. There is no heart failure. IMPRESSION: Normal chest. No change.
[2018-04-08] MEDS ORDERED: ACETAMINOPHEN TAB 500 MG TAB PO STA (01:09)
[2018-04-08] MEDS ORDERED: IBUPROFEN 600 MG TAB PO STA (01:09)
[2018-04-08] MEDS: SODIUM CHLORIDE 0.9% 500 ML 500 ML IV SCH ×2 (01:33→02:12)
[2018-04-08 02:03] LABS: Anisocytosis Slight; Appearance,Urine Clear (Clear); Basophils % (A) 0 %; Bilirubin,Urine Negative (Negative); Blood,Urine Trace (Negative); Color,Urine Light Yellow; Eosinophils # (A) 0.2 k/uL (0-0.7); Eosinophils % (A) 1 %; Glucose,Urine (UA) 4+ (Negative); HCT 43.3 % (34.0-46.0); Hypochromasia Moderate; Ketones,Urine Negative (Negative); Leukocyte Esterase,Urine Negative (Negative); Lymphocytes # (A) 0.6 k/uL (1.0-4.8); Lymphocytes % (A) 5 %; MCH 26.6 pg (25.0-35.0); MCHC 30.1 g/dL (31.0-37.0); MCV 88.4 fL (80.0-100.0); Mean Platelet Volume 8.6; Monocytes # (A) 0.5 k/uL (0-1.0); Monocytes % (A) 4 %; Mucus,Urine Rare /hpf; Neutrophils # (A) 11.4 k/uL (1.3-7.7); Neutrophils % (A) 90 %; Nitrite,Urine Negative (Negative); Poikilocytosis Slight; Protein,Urine Negative (Negative); RBC 4.89 m/uL (3.80-5.40); RBC,Urine 1 /hpf (0-5); RDW 16.5 % (11.5-15.5); Specific Gravity,Urine 1.023 (1.001-1.035); Squamous Epithelial Cell,Urine 2 /hpf (0-4); Urobilinogen,Urine <2.0 mg/dL (<2.0); WBC 12.7 k/uL (3.8-10.6); WBC,Urine 2 /hpf (0-5)
[2018-04-08 02:10] LABS: INR 1.1 (<1.2); Partial Thromboplastin Time 24.4 sec (22.0-30.0); Prothrombin Time 11.5 sec (9.0-12.0)
[2018-04-08 02:11] LABS: ALT 29 U/L (9-52); AST 28 U/L (14-36); Albumin 3.9 g/dL (3.5-5.0); Alkaline Phosphatase 118 U/L (38-126); Anion Gap 11 mmol/L; Blood Urea Nitrogen 16 mg/dL (7-17); Carbon Dioxide 23 mmol/L (22-30); Chloride 104 mmol/L (98-107); Glucose 460 mg/dL (74-99); Potassium 3.7 mmol/L (3.5-5.1); Sodium 138 mmol/L (137-145); Total Bilirubin 0.7 mg/dL (0.2-1.3); Total Protein 7.4 g/dL (6.3-8.2)
[2018-04-08 02:21] LABS: Creatine Kinase 46 U/L (30-135)
[2018-04-08] MEDS ORDERED: VANCOMYCIN IV PER PHARMACY 1 EACH MISC MISCELLANE PRN (02:26)
[2018-04-08] MEDS ORDERED: LEVOFLOXACIN 750MG-D5W PMX 750 MG in DEXTROSE/WATER 1 150ML.BAG IVPB STA (02:26)
[2018-04-08] MEDS ORDERED: VANCOMYCIN 2,000 MG in SODIUM CHLORIDE 0.9% 500 ML 500 ML IVPB STA (02:27)
[2018-04-08] MEDS ORDERED: SODIUM CHLORIDE 0.9% 2,000 ML IV ONE (02:32)
[2018-04-08] MEDS ORDERED: INSULIN REGULAR 100 UNIT/ML VIAL IV ONE (02:33)
[2018-04-08 02:34] LABS: Creatine Kinase MB 0.9 ng/mL (0.0-2.4); Troponin I <0.012 ng/mL (0.000-0.034)
[2018-04-08 02:54] LABS: Platelet Count 79 k/uL (150-450)
[2018-04-08] MEDS ORDERED: INSULIN REGULAR 100 UNIT/ML VIAL IV STA ×2 (03:20→07:07)
[2018-04-08] MEDS ORDERED: INSULIN ASPART 100 UNIT/ML 1 ML 10 ML VIAL SQ SCH (07:30)
[2018-04-08] MEDS: SODIUM CHLORIDE 0.9% 1,000 ML IV SCH ×4 (08:18→15:12)
[2018-04-08 08:22] LABS: Glucose,Whole Blood 463 mg/dL (75-99)
[2018-04-08] MEDS: PREGABALIN 75 MG CAP PO SCH ×2 (08:34→21:34)
[2018-04-08] MEDS: CYCLOBENZAPRINE 10 MG TAB PO SCH ×2 (08:34→21:34)
[2018-04-08] MEDS ORDERED: ASPIRIN 81 MG PO SCH (09:00)
[2018-04-08 09:12] VITALS: BMI 48.6
[2018-04-08 09:36] LABS: Glucose,Whole Blood 389 mg/dL (75-99)
--- NOTE | 2018-04-08 11:59 | P.HPIM ---
History of Present Illness H&P Date: 04/08/18 This is a 62-year-old female patient of Dr. Seymour. Patient presented to the emergency room with complaints of anxiety and shortness of breath. Patient has had multiple admissions and visits to the emergency room. Patient reports that her granddaughter has been placed in foster care and that this has increased to her anxiety. Patient does have a past medical history of asthma, cancer, COPD, diabetes mellitus, I disorder, hyperlipidemia, liver disorder, muscle skeletal disorder, neurological disorder, osteoathritis, thyroid disorder. Patient also has history of left heel ulcer that she follows with Dr. Nielsen in the wound care clinic. Chest x-ray completed showing normal chest. No change. EKG completed showing normal sinus rhythm, left axis deviation. Possible anterior lateral infarct age undetermined. Patient's blood sugar in remission 463. Patient's lactic acid 4.0 and WBC elevated at 12.7. Patient started on Levaquin and vancomycin per ER. Infectious disease has been consulted. Patient also has evidence of yeast under skin folds. Ordered nystatin at this time. Home insulin regime has been ordered. At this time patient denies chest pain or shortness breath. Patient denies nausea vomiting diarrhea. Patient denies any urinary burning or frequency. Review of Systems please refer to HPI otherwise unremarkable Past Medical History Past Medical History: Asthma, Cancer, COPD, Diabetes Mellitus, Eye Disorder, Hyperlipidemia, Liver Disease, Musculoskeletal Disorder, Neurologic Disorder, Osteoarthritis (OA), Sleep Apnea/CPAP/BIPAP, Thyroid Disorder Additional Past Medical History / Comment(s): History of osteomyelitis left #3 toe and left calf: 2004. cervical cancer (in remission.) Wound vac. Cirrhosis of the liver r/t diabetes - sees Dr. Barraza History of Any Multi-Drug Resistant Organisms: MRSA Date of last positivie culture/infection: 03/20/17 MDRO Source:: MRSA HEEL Past Surgical History: Section, Cholecystectomy, Hysterectomy, Orthopedic Surgery, Tonsillectomy, Tubal Ligation Additional Past Surgical History / Comment(s): Cataracts and laser surgery for glaucoma. Multiple I&D to left foot and lower leg. Past Anesthesia/Blood Transfusion Reactions: No Reported Reaction Past Psychological History: Anxiety, Bipolar, Depression Additional Psychological History / Comment(s): Lives in an apartment with her 3 children. Reformed smoker. Denies alcohol use. Medically disabled. No experience. No international travel. No animals in the home. Relates that bedbug infestation has been cleared up Smoking Status: Former smoker Past Alcohol Use History: None Reported Additional Past Alcohol Use History / Comment(s): Patient was a smoker of 2 packs per day for 21 years and quit in 1992. She does use marijuana on occasional basis. She denies any medical marijuana card. She denies any alcohol use or abuse. She is currently living at home and one adult son is living with her. She has been on disability. She is mostly wheelchair bound when out. walker at home. Medically disabled. No international travel. No animals in the home. Past Drug Use History: Marijuana - Past Family History Father Family Medical History: Congestive Heart Failure (CHF), Coronary Artery Disease (CAD), Myocardial Infarction (PR) Mother Family Medical History: Coronary Artery Disease (CAD), CVA/TIA, Dementia, Myocardial Infarction (PR) Medications and Allergies Home Medications Medication Instructions Recorded Confirmed Type metFORMIN HCL [Glucophage] 850 mg PO BID 02/18/14 04/08/18 History Cyclobenzaprine [Flexeril] 10 mg PO BID tab 02/16/18 04/08/18 Rx Pregabalin [Lyrica] 75 mg PO BID cap 02/16/18 04/08/18 Rx Aspirin EC [Ecotrin Low Dose] 81 mg PO DAILY 04/08/18 04/08/18 History Cetirizine HCl [Zyrtec] 10 mg PO DAILY 04/08/18 04/08/18 History INSULIN LISPRO (HumaLOG) [HumaLOG] 30 units SQ AC-TID 04/08/18 04/08/18 History Insulin Glargine,Hum.rec.anlog 80 unit SQ HS 04/08/18 04/08/18 History [Basaglar Kwikpen U-100] Insulin Glargine,Hum.rec.anlog 100 unit SQ QAM 04/08/18 04/08/18 History [Basaglar Kwikpen U-100] Latanoprost [Xalatan 0.005%] 1 drop BOTH EYES HS 04/08/18 04/08/18 History Simvastatin [Zocor] 40 mg PO HS 04/08/18 04/08/18 History Triamterene/Hydrochlorothiazid 1 tab PO DAILY 04/08/18 04/08/18 History [Maxzide 37.5-25] Venlafaxine HCl ER [Effexor Xr] 150 mg PO DAILY 04/08/18 04/08/18 History Allergies Allergy/AdvReac Type Severity Reaction Status Date / Time Penicillins Allergy Anaphylaxis Verified 04/08/18 08:38 meropenem AdvReac Itching Verified 04/08/18 08:38 Physical Exam Vitals: Vital Signs Temp Pulse Pulse Resp BP BP Pulse Ox 04/08/18 07:50 98 F 91 20 144/62 97 04/08/18 07:23 80 16 114/63 98 04/08/18 06:49 98.4 F 80 20 107/49 98 04/08/18 03:30 84 20 161/81 98 04/08/18 02:25 99.3 F 04/08/18 01:54 96 16 183/56 96 04/08/18 00:53 101.7 F H 97 16 147/75 96 04/08/18 00:46 90 18 04/08/18 00:36 92 18 04/07/18 23:51 100.5 F H 92 18 156/49 96 Intake and Output 04/07/18 04/08/18 04/08/18 22:59 06:59 14:59 Other: Voiding Method Toilet Weight 149.232 kg 149.232 kg Head normocephalic Neck supple Lungs clear to auscultation bilaterally no wheezing or crackles Heart regular rate and rhythm S1-S2, no rub or gallop Abdomen is soft nontender nondistended positive bowel sounds no hepatosplenomegaly Extremities no edema Neuro alert and orientated to 3 Results CBC & Chem 7: 04/08/18 01:48 04/08/18 01:48 Labs: Abnormal Lab Results - Last 24 Hours (Table) 04/08/18 04/08/18 04/08/18 Range/Units 01:48 01:48 01:48 WBC 12.7 H (3.8-10.6) k/uL MCHC 30.1 L (31.0-37.0) g/dL RDW 16.5 H (11.5-15.5) % Plt Count 79 L (150-450) k/uL Neutrophils # 11.4 H (1.3-7.7) k/uL Lymphocytes # 0.6 L (1.0-4.8) k/uL Glucose 460 H (74-99) mg/dL POC Glucose (mg/dL) (75-99) mg/dL Plasma Lactic Acid Marquise 4.0 H* (0.7-2.0) mmol/L C-Reactive Protein (<10.0) mg/L Urine Glucose (UA) (Negative) Urine Blood (Negative) Urine Mucus (None) /hpf 04/08/18 04/08/18 04/08/18 Range/Units 01:48 01:48 06:53 WBC (3.8-10.6) k/uL MCHC (31.0-37.0) g/dL RDW (11.5-15.5) % Plt Count (150-450) k/uL Neutrophils # (1.3-7.7) k/uL Lymphocytes # (1.0-4.8) k/uL Glucose (74-99) mg/dL POC Glucose (mg/dL) 463 H (75-99) mg/dL Plasma Lactic Acid Marquise (0.7-2.0) mmol/L C-Reactive Protein 22.3 H (<10.0) mg/L Urine Glucose (UA) 4+ H (Negative) Urine Blood Trace H (Negative) Urine Mucus Rare H (None) /hpf 04/08/18 04/08/18 Range/Units 08:51 09:23 WBC (3.8-10.6) k/uL MCHC (31.0-37.0) g/dL RDW (11.5-15.5) % Plt Count (150-450) k/uL Neutrophils # (1.3-7.7) k/uL Lymphocytes # (1.0-4.8) k/uL Glucose (74-99) mg/dL POC Glucose (mg/dL) 389 H (75-99) mg/dL Plasma Lactic Acid Marquise 2.4 H* (0.7-2.0) mmol/L C-Reactive Protein (<10.0) mg/L Urine Glucose (UA) (Negative) Urine Blood (Negative) Urine Mucus (None) /hpf Thrombosis Risk Factor Assmnt - Choose All That Apply Each Factor Represents 1 point: Abnormal pulmonary function (COPD), Age 41-60 years, Hx of IBD, Obesity (BMI >25), Swollen legs (current) Each Risk Factor Represents 3 Points: Family history of DVT/PE Other congenital or acquired thrombophilia - If yes, enter type in comment: No Thrombosis Risk Factor Assessment Total Risk Factor Score: 8 Thrombosis Risk Factor Assessment Level: High Risk Assessment and Plan Assessment: 1. Leukocytosis with elevated lactic acid. WBC 12.7. Lactic acid elevated to 4.0. Repeat 2.4. Dr. Nielsen has been consulted for infectious disease. Patient started on vancomycin and Levaquin. Also evidence of yeast under skin folds. Nystatin powder has been ordered 2. Nonhealing diabetic foot ulcer. Patient follows up in wound care clinic. Dr. Nielsen has been consulted 3. Chronic thrombocytopenia. Dr. bowling had been consulted in the past states cytopenia related secondary to multiple comorbidities including liver disease, splenomegaly worsening with active infection. 4. Diabetes mellitus type 2 uncontrolled blood sugars. Home medications resumed at this time. Hemoglobin A1c ordered. museum educator ordered 5. Morbid obesity 6. History of hypothyroidism 7. History of hyperlipedemia 8. History of bipolar depression. Home meds resumed 9. History of liver cirrhosis 10. History of sleep apnea 11. History of previous osteomyelitis 12. Depression to skin folds. Nystatin powder has been ordered. Infectious disease consulted DVT prophylaxis SCDs due to thrombocytopenia. GI prophylaxis Pepcid Social work consult has been placed to aid patient in community resources I performed an examination of the patient and discussed their management with the Nurse Practitioner. I have reviewed the Nurse Practitioner's notes and agree with the documented findings and plan of care
[2018-04-08] MEDS: HYDROcodone/APAP 10-325MG 1 EACH TAB PO PRN ×2 (12:07→21:32)
[2018-04-08] MEDS: NYSTATIN 100,000 UNIT/GM POWD 15 GM TOPICAL SCH (12:08)
[2018-04-08] MEDS: VENLAFAXINE HCL ER 150 MG CAP PO SCH (12:11)
[2018-04-08 12:12] LABS: Hemoglobin A1C 11.5 % (4.0-6.0)
[2018-04-08 12:45] LABS: Glucose,Whole Blood 370 mg/dL (75-99)
[2018-04-08] MEDS: INSULIN ASPART 100 UNIT/ML 1 ML 10 ML VIAL SQ SCH ×2 (12:50→17:40)
[2018-04-08] MEDS: VANCOMYCIN 2,000 MG in SODIUM CHLORIDE 0.9% 500 ML 500 ML IVPB SCH (17:02)
[2018-04-08 17:24] LABS: Glucose,Whole Blood 379 mg/dL (75-99)
[2018-04-08] MEDS ORDERED: SODIUM CHLORIDE 0.9% 500 ML 500 ML IV ONE (21:00)
[2018-04-08] MEDS ORDERED: ATORVASTATIN 40 MG TAB PO SCH (21:00)
[2018-04-08 21:27] LABS: Glucose,Whole Blood 318 mg/dL (75-99)
[2018-04-08] MEDS: ATORVASTATIN 20 MG TAB PO SCH (21:32)
[2018-04-08] MEDS: INSULIN DETEMIR 100 UNIT/ML 10 ML VIAL SQ SCH (21:33)
[2018-04-08] MEDS: LATANOPROST 0.005% OPHTH DROPS 2.5 ML BTL BOTH EYES SCH (21:34)
--- NOTE | 2018-04-08 22:08 | P.CONS ---
History of Present Illness - Reason for Consult Consult date: 04/08/18 - Chief Complaint Shortness of breath and increasing anxiety - History of Present Illness 62-year-old female with superobesity presents to the emergency center feeling poorly with increasing shortness of breath discomforts generalized and worsening anxiety. Patient is well-known to the service from her care in the wound healing center for the treatment of the right diabetic foot ulceration that had been refractory to treatment but eventually responded to the total contact cast. The patient relates that home situation has markedly declined. Her son apparently was utilizing methamphetamine and cocaine as well as his . Because of this the child was removed from the home. The patient often says that because grandchild live in the home with her that was her only point of living in now that she is no longer there she is quite despondent. However she is now trying to determine how she can become well enough that she can care for the child herself and obtain custody. Admission blood sugar was elevated, lactic acid was elevated at 4 her white count was elevated at 12.7. With this she was admitted to hospital with concerns of sepsis in the infectious diseases consultation was requested. Review of Systems 62-year-old woman feeling poorly HEENT:Denies headache or acute visual change. Denies sinus or mouth discomforts. Denies neck stiffness or pain. Denies significant oral cavity pain. Denies difficulty on swallowing. Lungs: Shortness of breath admission is improved she is not having cough sputum production or hemoptysis Cardiovascular: Shortness of breath is improved no chest pain at this time. No chest pressure. No orthopnea or syncope Gastrointestinal:Denies nausea, vomiting, diarrhea, constipation, hematemesis, melena, hematochezia. No no significant change of bowel habit noticed. Musculoskeletal: denies significant myalgias or arthralgias. No new joint swelling. Denies new back pain. Ski The right heel apparently has become slightly more injured with the recent trauma related to a fall. Neuro: Denies headache or visual change. Denies any new onset weakness or difficulty with ambulation. Denies falls or seizures. Psychiatric: Significant anxiety and depression with the granddaughter being placed in foster care Endocrine: Fatigue and weight gain Past Medical History Past Medical History: Asthma, Cancer, COPD, Diabetes Mellitus, Eye Disorder, Hyperlipidemia, Liver Disease, Musculoskeletal Disorder, Neurologic Disorder, Osteoarthritis (OA), Sleep Apnea/CPAP/BIPAP, Thyroid Disorder Additional Past Medical History / Comment(s): History of osteomyelitis left #3 toe and left calf: 2004. cervical cancer (in remission.) Wound vac. Cirrhosis of the liver r/t diabetes - sees Dr. Barraza History of Any Multi-Drug Resistant Organisms: MRSA Year Discovered:: 03/20/17 MDRO Source:: MRSA HEEL Past Surgical History: Section, Cholecystectomy, Hysterectomy, Orthopedic Surgery, Tonsillectomy, Tubal Ligation Additional Past Surgical History / Comment(s): Cataracts and laser surgery for glaucoma. Multiple I&D to left foot and lower leg. Past Anesthesia/Blood Transfusion Reactions: No Reported Reaction Past Psychological History: Anxiety, Bipolar, Depression Additional Psychological History / Comment(s): Lives in an apartment with her 3 children. Reformed smoker. Denies alcohol use. Medically disabled. No experience. No international travel. No animals in the home. Relates that bedbug infestation has been cleared up Smoking Status: Former smoker Past Alcohol Use History: None Reported Additional Past Alcohol Use History / Comment(s): Patient was a smoker of 2 packs per day for 21 years and quit in 1992. She does use marijuana on occasional basis. She denies any medical marijuana card. She denies any alcohol use or abuse. She is currently living at home and one adult son is living with her. She has been on disability. She is mostly wheelchair bound when out. walker at home. Medically disabled. No international travel. No animals in the home. Past Drug Use History: Marijuana - Past Family History Father Family Medical History: Congestive Heart Failure (CHF), Coronary Artery Disease (CAD), Myocardial Infarction (AL) Mother Family Medical History: Coronary Artery Disease (CAD), CVA/TIA, Dementia, Myocardial Infarction (AL) Medications and Allergies Home Medications and Allergies Comment(s): Current Medications Hydrocodone Bitart/Acetaminophen (Sugarcreek 10) 1 each PO Q8H PRN PRN Reason: Pain Last Admin: 04/08/18 21:32 Dose: 1 each Aripiprazole (Abilify) 2 mg PO DAILY [facility] Aspirin (Aspirin) 81 mg PO DAILY [facility] Atorvastatin Calcium (Lipitor) 20 mg PO HS [facility] Last Admin: 04/08/18 21:32 Dose: 20 mg Cyclobenzaprine HCl (Flexeril) 10 mg PO BID [facility] Last Admin: 04/08/18 21:34 Dose: 10 mg Famotidine (Pepcid) 20 mg PO DAILY [facility] Sodium Chloride (Saline 0.9%) 1,000 mls @ 100 mls/hr IV .Q10H [facility] Last Admin: 04/08/18 08:19 Dose: Not Given Vancomycin HCl 2,000 mg/ (Sodium Chloride) 500 mls @ 167 mls/hr IVPB Q12H [facility] Last Admin: 04/08/18 17:02 Dose: 167 mls/hr Sodium Chloride (Saline 0.9%) 1,000 mls @ 150 mls/hr IV .Q6H40M [facility] Last Admin: 04/08/18 15:12 Dose: Not Given Insulin Aspart (Novolog) 30 unit SQ AC-TID [facility] Last Admin: 04/08/18 17:40 Dose: 30 unit Insulin Detemir (Levemir) 80 unit SQ HS [facility] Last Admin: 04/08/18 21:33 Dose: 80 unit Insulin Detemir (Levemir) 100 unit SQ QAM [facility] Latanoprost (Xalatan 0.005%) 1 drops BOTH EYES [facility] Last Admin: 04/08/18 21:34 Dose: 1 drops Levothyroxine Sodium (Synthroid) 100 mcg PO DAILY@0630 [facility] Loratadine (Claritin) 10 mg PO DAILY [facility] Nystatin (Mycostatin Powder) 1 applic TOPICAL BID [facility] Last Admin: 04/08/18 12:08 Dose: 1 applic Pregabalin (Lyrica) 75 mg PO BID [facility] Last Admin: 04/08/18 21:34 Dose: 75 mg Triamterene/HCTZ (Maxzide-25) 1 each PO DAILY [facility] Venlafaxine HCl (Effexor Xr) 150 mg PO DAILY [facility] Last Admin: 04/08/18 12:11 Dose: 150 mg Home Medications Medication Instructions Recorded Confirmed Type metFORMIN HCL [Glucophage] 850 mg PO BID 02/18/14 04/08/18 History Cyclobenzaprine [Flexeril] 10 mg PO BID tab 02/16/18 04/08/18 Rx Pregabalin [Lyrica] 75 mg PO BID cap 02/16/18 04/08/18 Rx Aspirin EC [Ecotrin Low Dose] 81 mg PO DAILY 04/08/18 04/08/18 History Cetirizine HCl [Zyrtec] 10 mg PO DAILY 04/08/18 04/08/18 History INSULIN LISPRO (HumaLOG) [HumaLOG] 30 units SQ AC-TID 04/08/18 04/08/18 History Insulin Glargine,Hum.rec.anlog 80 unit SQ HS 04/08/18 04/08/18 History [Basaglar Kwikpen U-100] Insulin Glargine,Hum.rec.anlog 100 unit SQ QAM 04/08/18 04/08/18 History [Basaglar Kwikpen U-100] Latanoprost [Xalatan 0.005%] 1 drop BOTH EYES HS 04/08/18 04/08/18 History Simvastatin [Zocor] 40 mg PO HS 04/08/18 04/08/18 History Triamterene/Hydrochlorothiazid 1 tab PO DAILY 04/08/18 04/08/18 History [Maxzide 37.5-25] Venlafaxine HCl ER [Effexor Xr] 150 mg PO DAILY 04/08/18 04/08/18 History Allergies Allergy/AdvReac Type Severity Reaction Status Date / Time Penicillins Allergy Anaphylaxis Verified 04/08/18 08:38 meropenem AdvReac Itching Verified 04/08/18 08:38 Physical Exam Vitals: Vital Signs Temp Pulse Pulse Resp BP BP Pulse Ox 04/08/18 20:44 96 04/08/18 16:38 98.0 F 96 16 129/64 96 04/08/18 14:27 98.5 F 82 16 112/50 99 04/08/18 07:50 98 F 91 20 144/62 97 04/08/18 07:23 80 16 114/63 98 04/08/18 06:49 98.4 F 80 20 107/49 98 04/08/18 03:30 84 20 161/81 98 04/08/18 02:25 99.3 F 04/08/18 01:54 96 16 183/56 96 04/08/18 00:53 101.7 F H 97 16 147/75 96 04/08/18 00:46 90 18 04/08/18 00:36 92 18 04/07/18 23:51 100.5 F H 92 18 156/49 96 Intake and Output 04/08/18 04/08/18 04/08/18 06:59 14:59 22:59 Intake Total 200 Balance 200 Intake: Oral 200 Other: Voiding Method Toilet # Voids 1 2 Weight 149.232 kg 149.232 kg Pleasant 62-year-old woman with superobesity is comfortable at this time. Relates that she suffered a fall in March which is why she cropped her hair because of the kathleen that were applied to her scalp. HEENT: Anicteric conjunctiva are pink and moist nasal mucosa grossly intact without significant lesions, there is no thrush. Scalp is evidence of the heel lesion no drainage Neck: The neck is supple without significant lymphadenopathy or thyromegaly. Lungs: Symmetrical air entry with expiratory wheeze no bronchial sounds all dullness or egophony Heart: Regular rate and rhythm with an audible S1-S2, no S3 no S4. There is no significant murmur click or rub, PMI was nondisplaced. Abdomen: Obese Positive bowel sounds soft and nontender without palpable masses or organomegaly. There was no guarding or rebound. Extremities: The upper extremities have excellent pulses they are symmetric, no significant petechiae or telangiectasia. No splinter hemorrhages were noted. Lower extremities with chronic venous stasis changes but no open ulcerations on the pretibial areas at this time, the right heel shows evidence of the prior significant open ulceration currently has a small area of 0.1 x 0.1 x 0.1cm the may have some drainage but nothing is expressible at this time, there is erythema is present on the dorsum of the foot to the distal aspect of the leg with warmth and some minimal tenderness. Neuro: Awake alert oriented to person place and time. There are no acute new gross focal sensory motor deficits except for peripheral neuropathy. Results CBC & Chem 7: 04/08/18 01:48 04/08/18 01:48 Labs: Abnormal Lab Results - Last 24 Hours (Table) 04/08/18 04/08/18 04/08/18 Range/Units 01:48 01:48 01:48 WBC 12.7 H (3.8-10.6) k/uL MCHC 30.1 L (31.0-37.0) g/dL RDW 16.5 H (11.5-15.5) % Plt Count 79 L (150-450) k/uL Neutrophils # 11.4 H (1.3-7.7) k/uL Lymphocytes # 0.6 L (1.0-4.8) k/uL Glucose 460 H (74-99) mg/dL POC Glucose (mg/dL) (75-99) mg/dL Hemoglobin A1c (4.0-6.0) % Plasma Lactic Acid Marquise 4.0 H* (0.7-2.0) mmol/L C-Reactive Protein (<10.0) mg/L Urine Glucose (UA) (Negative) Urine Blood (Negative) Urine Mucus (None) /hpf 04/08/18 04/08/18 04/08/18 Range/Units 01:48 01:48 01:48 WBC (3.8-10.6) k/uL MCHC (31.0-37.0) g/dL RDW (11.5-15.5) % Plt Count (150-450) k/uL Neutrophils # (1.3-7.7) k/uL Lymphocytes # (1.0-4.8) k/uL Glucose (74-99) mg/dL POC Glucose (mg/dL) (75-99) mg/dL Hemoglobin A1c 11.5 H (4.0-6.0) % Plasma Lactic Acid Marquise (0.7-2.0) mmol/L C-Reactive Protein 22.3 H (<10.0) mg/L Urine Glucose (UA) 4+ H (Negative) Urine Blood Trace H (Negative) Urine Mucus Rare H (None) /hpf 04/08/18 04/08/18 04/08/18 Range/Units 06:53 08:51 09:23 WBC (3.8-10.6) k/uL MCHC (31.0-37.0) g/dL RDW (11.5-15.5) % Plt Count (150-450) k/uL Neutrophils # (1.3-7.7) k/uL Lymphocytes # (1.0-4.8) k/uL Glucose (74-99) mg/dL POC Glucose (mg/dL) 463 H 389 H (75-99) mg/dL Hemoglobin A1c (4.0-6.0) % Plasma Lactic Acid Marquise 2.4 H* (0.7-2.0) mmol/L C-Reactive Protein (<10.0) mg/L Urine Glucose (UA) (Negative) Urine Blood (Negative) Urine Mucus (None) /hpf 04/08/18 04/08/18 04/08/18 Range/Units 12:41 15:25 17:21 WBC (3.8-10.6) k/uL MCHC (31.0-37.0) g/dL RDW (11.5-15.5) % Plt Count (150-450) k/uL Neutrophils # (1.3-7.7) k/uL Lymphocytes # (1.0-4.8) k/uL Glucose (74-99) mg/dL POC Glucose (mg/dL) 370 H 379 H (75-99) mg/dL Hemoglobin A1c (4.0-6.0) % Plasma Lactic Acid Marquise 2.6 H* (0.7-2.0) mmol/L C-Reactive Protein (<10.0) mg/L Urine Glucose (UA) (Negative) Urine Blood (Negative) Urine Mucus (None) /hpf 04/08/18 Range/Units 21:10 WBC (3.8-10.6) k/uL MCHC (31.0-37.0) g/dL RDW (11.5-15.5) % Plt Count (150-450) k/uL Neutrophils # (1.3-7.7) k/uL Lymphocytes # (1.0-4.8) k/uL Glucose (74-99) mg/dL POC Glucose (mg/dL) 318 H (75-99) mg/dL Hemoglobin A1c (4.0-6.0) % Plasma Lactic Acid Marquise (0.7-2.0) mmol/L C-Reactive Protein (<10.0) mg/L Urine Glucose (UA) (Negative) Urine Blood (Negative) Urine Mucus (None) /hpf Microbiology - Last 24 Hours (Table) 04/08/18 01:48 Urine Culture - Preliminary Urine,Clean Catch Laboratory Results WBC 12.7 k/uL (3.8-10.6) H 04/08/18 01:48 RBC 4.89 m/uL (3.80-5.40) 04/08/18 01:48 Hgb 13.0 gm/dL (11.4-16.0) 04/08/18 01:48 Hct 43.3 % (34.0-46.0) 04/08/18 01:48 MCV 88.4 fL (80.0-100.0) 04/08/18 01:48 MCH 26.6 pg (25.0-35.0) 04/08/18 01:48 MCHC 30.1 g/dL (31.0-37.0) L 04/08/18 01:48 RDW 16.5 % (11.5-15.5) H 04/08/18 01:48 Plt Count 79 k/uL (150-450) L 04/08/18 01:48 Neutrophils % 90 % 04/08/18 01:48 Lymphocytes % 5 % 04/08/18 01:48 Monocytes % 4 % 04/08/18 01:48 Eosinophils % 1 % 04/08/18 01:48 Basophils % 0 % 04/08/18 01:48 Neutrophils # 11.4 k/uL (1.3-7.7) H 04/08/18 01:48 Lymphocytes # 0.6 k/uL (1.0-4.8) L 04/08/18 01:48 Monocytes # 0.5 k/uL (0-1.0) 04/08/18 01:48 Eosinophils # 0.2 k/uL (0-0.7) 04/08/18 01:48 Basophils # 0.0 k/uL (0-0.2) 04/08/18 01:48 Manual Slide Review Performed 04/08/18 01:48 Hypochromasia Moderate 04/08/18 01:48 Poikilocytosis Slight 04/08/18 01:48 Anisocytosis Slight 04/08/18 01:48 PT 11.5 sec (9.0-12.0) 04/08/18 01:48 INR 1.1 (<1.2) 04/08/18 01:48 APTT 24.4 sec (22.0-30.0) 04/08/18 01:48 Sodium 138 mmol/L (137-145) 04/08/18 01:48 Potassium 3.7 mmol/L (3.5-5.1) 04/08/18 01:48 Chloride 104 mmol/L (98-107) 04/08/18 01:48 Carbon Dioxide 23 mmol/L (22-30) 04/08/18 01:48 Anion Gap 11 mmol/L 04/08/18 01:48 BUN 16 mg/dL (7-17) 04/08/18 01:48 Creatinine 0.70 mg/dL (0.52-1.04) 04/08/18 01:48 Est GFR (CKD-EPI)AfAm >90 (>60 ml/min/1.73 sqM) 04/08/18 01:48 Est GFR (CKD-EPI)NonAf >90 (>60 ml/min/1.73 sqM) 04/08/18 01:48 Glucose 460 mg/dL (74-99) H 04/08/18 01:48 POC Glucose (mg/dL) 318 mg/dL (75-99) H 04/08/18 21:10 POC Glu Skills Instructor ID Ellie Mackey 04/08/18 21:[address] Glu mg/dL 283 04/08/18 01:48 Hemoglobin A1c 11.5 % (4.0-6.0) H 04/08/18 01:48 Lactic Ac Sepsis Rflx Y 04/08/18 10:23 Plasma Lactic Acid Marquise 2.6 mmol/L (0.7-2.0) H* 04/08/18 15:25 Calcium 9.0 mg/dL (8.4-10.2) 04/08/18 01:48 Total Bilirubin 0.7 mg/dL (0.2-1.3) 04/08/18 01:48 AST 28 U/L (14-36) 04/08/18 01:48 ALT 29 U/L (9-52) 04/08/18 01:48 Alkaline Phosphatase 118 U/L (38-126) 04/08/18 01:48 Total Creatine Kinase 46 U/L (30-135) 04/08/18 01:48 CK-MB (CK-2) 0.9 ng/mL (0.0-2.4) 04/08/18 01:48 CK-MB (CK-2) Rel Index 2.0 04/08/18 01:48 Troponin I <0.012 ng/mL (0.000-0.034) 04/08/18 01:48 C-Reactive Protein 22.3 mg/L (<10.0) H 04/08/18 01:48 Total Protein 7.4 g/dL (6.3-8.2) 04/08/18 01:48 Albumin 3.9 g/dL (3.5-5.0) 04/08/18 01:48 Urine Color Light Yellow 04/08/18 01:48 Urine Appearance Clear (Clear) 04/08/18 01:48 Urine pH 5.0 (5.0-8.0) 04/08/18 01:48 Ur Specific [place] 1.023 (1.001-1.035) 04/08/18 01:48 Urine Protein Negative (Negative) 04/08/18 01:48 Urine Glucose (UA) 4+ (Negative) H 04/08/18 01:48 Urine Ketones Negative (Negative) 04/08/18 01:48 Urine Blood Trace (Negative) H 04/08/18 01:48 Urine Nitrite Negative (Negative) 04/08/18 01:48 Urine Bilirubin Negative (Negative) 04/08/18 01:48 Urine Urobilinogen <2.0 mg/dL (<2.0) 04/08/18 01:48 Ur Leukocyte Esterase Negative (Negative) 04/08/18 01:48 Urine RBC 1 /hpf (0-5) 04/08/18 01:48 Urine WBC 2 /hpf (0-5) 04/08/18 01:48 Ur Squamous Epith Cells 2 /hpf (0-4) 04/08/18 01:48 Urine Mucus Rare /hpf (None) H 04/08/18 01:48 Influenza Type A RNA Not Detected (Not Detectd) 04/08/18 00:43 Influenza Type B (PCR) Not Detected (Not Detectd) 04/08/18 00:43 Microbiology 04/08/18 01:48 Urine,Clean Catch Urine Culture - Preliminary Assessment and Plan (1) Morbid obesity with BMI of 45.0-49.9, adult Current Visit: Yes Status: Acute Code(s): E66.01 - MORBID (SEVERE) OBESITY DUE TO EXCESS CALORIES SNOMED Code(s): 468438426 (2) Cellulitis of right lower extremity Narrative/Plan: 62-year-old female presents to Hospital feeling poorly with increasing weakness generalized malaise and ongoing difficulties with worsening anxiety. Is noted there is no significant psychosocial change in her home environment due to the granddaughter that lives with her being placed in foster care because the drug use of the granddaughters parents. The patient would like to talk to social work to see what her plans can be as far is working toward getting guardianship of her granddaughter. This prospect does seem to give her some hope. At this time is evidence of cellulitis of right lower extremity with resultant sepsis from this. The right heel has minimal drainage and a small area that may be open. Local wound care with Silvadene wrap is been requested and will be placed from the foot to the leg which we'll treat the edema and cellulitis. She should offload the site is much as possible. She does have evidence of sepsis present on admission and consequently antibiotic therapy with vancomycin has been started will also cover for gram- negative organisms especially pseudomonas given her prior history with the addition of Azactam. The patient is up-to-date with her tetanus vaccine. She is in need of much improved glucose control. She's also has severe lactic acidosis that his also likely contributed from her uncontrolled diabetes. Current Visit: No Status: Acute Code(s): L03.115 - CELLULITIS OF RIGHT LOWER LIMB SNOMED Code(s): 032058534 (3) Sepsis Current Visit: Yes Status: Acute Code(s): A41.9 - SEPSIS, UNSPECIFIED ORGANISM SNOMED Code(s): 28264637
[2018-04-08 23:12] LABS: Glucose,Whole Blood 313 mg/dL (75-99)
[2018-04-09] MEDS: AZTREONAM 2 GM in SODIUM CHLORIDE 0.9% 100 ML IVPB SCH ×3 (00:58→14:59)
[2018-04-09] MEDS: SODIUM CHLORIDE 0.9% 1,000 ML IV SCH ×4 (04:21→15:00)
[2018-04-09] MEDS: VANCOMYCIN 2,000 MG in SODIUM CHLORIDE 0.9% 500 ML 500 ML IVPB SCH ×2 (04:59→16:58)
[2018-04-09] MEDS: LEVOTHYROXINE 100 MCG TAB PO SCH (06:28)
[2018-04-09 06:32] LABS: Glucose,Whole Blood 311 mg/dL (75-99)
[2018-04-09] MEDS: INSULIN ASPART 100 UNIT/ML 1 ML 10 ML VIAL SQ SCH ×3 (06:35→18:02)
[2018-04-09] MEDS: ARIPiprazole 2 MG TAB PO SCH (08:22)
[2018-04-09] MEDS: ASPIRIN 81 MG PO SCH (08:23)
[2018-04-09] MEDS: FAMOTIDINE 20 MG TAB PO SCH (08:23)
[2018-04-09] MEDS: CYCLOBENZAPRINE 10 MG TAB PO SCH (08:23)
[2018-04-09] MEDS: NYSTATIN 100,000 UNIT/GM POWD 15 GM TOPICAL SCH ×2 (08:24→21:43)
[2018-04-09] MEDS: LORATADINE 10 MG TAB PO SCH (08:24)
[2018-04-09] MEDS: PREGABALIN 75 MG CAP PO SCH ×2 (08:24→21:32)
[2018-04-09] MEDS: TRIAMTERENE-HCTZ 37.5-25MG 1 EACH TAB PO SCH (08:24)
[2018-04-09] MEDS: INSULIN DETEMIR 100 UNIT/ML 10 ML VIAL SQ SCH ×2 (08:25→21:33)
[2018-04-09] MEDS: VENLAFAXINE HCL ER 150 MG CAP PO SCH (08:25)
[2018-04-09 09:33] LABS: Anisocytosis Slight; Basophils # (A) 0.1 k/uL (0-0.2); Basophils % (A) 1 %; Eosinophils # (A) 0.3 k/uL (0-0.7); Eosinophils % (A) 4 %; HCT 38.2 % (34.0-46.0); HGB 12.1 gm/dL (11.4-16.0); Hypochromasia Moderate; Lymphocytes # (A) 1.1 k/uL (1.0-4.8); Lymphocytes % (A) 14 %; MCH 27.6 pg (25.0-35.0); MCHC 31.6 g/dL (31.0-37.0); MCV 87.3 fL (80.0-100.0); Mean Platelet Volume 9.7; Monocytes # (A) 0.4 k/uL (0-1.0); Monocytes % (A) 5 %; Neutrophils % (A) 76 %; Poikilocytosis Slight; RBC 4.38 m/uL (3.80-5.40); RDW 16.6 % (11.5-15.5); WBC 7.9 k/uL (3.8-10.6)
[2018-04-09 09:58] LABS: Platelet Count 82 k/uL (150-450)
[2018-04-09 10:14] LABS: ALT 17 U/L (9-52); AST 27 U/L (14-36); Albumin 3.2 g/dL (3.5-5.0); Alkaline Phosphatase 79 U/L (38-126); Anion Gap 9 mmol/L; Blood Urea Nitrogen 12 mg/dL (7-17); Calcium 8.3 mg/dL (8.4-10.2); Carbon Dioxide 20 mmol/L (22-30); Chloride 109 mmol/L (98-107); Glucose 336 mg/dL (74-99); Potassium 4.4 mmol/L (3.5-5.1); Sodium 138 mmol/L (137-145); Total Bilirubin 0.6 mg/dL (0.2-1.3); Total Protein 6.4 g/dL (6.3-8.2)
[2018-04-09 12:41] LABS: Glucose,Whole Blood 262 mg/dL (75-99)
--- NOTE | 2018-04-09 14:56 | P.PN ---
Subjective Progress Note Date: 04/09/18 This is a 62-year-old female patient of Dr. Seymour. Patient presented to the emergency room with complaints of anxiety and shortness of breath. Patient has had multiple admissions and visits to the emergency room. Patient reports that her granddaughter has been placed in foster care and that this has increased to her anxiety. Patient does have a past medical history of asthma, cancer, COPD, diabetes mellitus, I disorder, hyperlipidemia, liver disorder, muscle skeletal disorder, neurological disorder, osteoathritis, thyroid disorder. Patient also has history of left heel ulcer that she follows with Dr. Nielsen in the wound care clinic. Chest x-ray completed showing normal chest. No change. EKG completed showing normal sinus rhythm, left axis deviation. Possible anterior lateral infarct age undetermined. Patient's blood sugar in remission 463. Patient's lactic acid 4.0 and WBC elevated at 12.7. Patient started on Levaquin and vancomycin per ER. Infectious disease has been consulted. Patient also has evidence of yeast under skin folds. Ordered nystatin at this time. Home insulin regime has been ordered. At this time patient denies chest pain or shortness breath. Patient denies nausea vomiting diarrhea. Patient denies any urinary burning or frequency. on 04/09/2018 patient is currently resting in bed. Patient does state she feels a bit improved from yesterday. Infectious disease is following. At this time patient denies chest pain or shortness of breath. Patient denies nausea vomiting or diarrhea. Patient denies any urinary burning or frequency. Patient is complaining of some constipation will add Lasix at this time. TSH level ordered. blood sugars remain high but are improving Objective - Vital Signs Vital signs: Vital Signs Temp 98.2 F 04/09/18 12:25 Pulse 76 04/09/18 12:25 Resp 16 04/09/18 12:25 BP 145/75 04/09/18 12:25 Pulse Ox 94 L 04/09/18 12:25 Intake & Output 04/08/18 04/09/18 04/09/18 18:59 06:59 18:59 Intake Total 600 Balance 600 Weight 149.232 kg Intake: Oral 600 Other: Voiding Method Toilet Toilet # Voids 1 2 1 - Exam Head normocephalic Neck supple Lungs clear to auscultation bilaterally no wheezing or crackles Heart regular rate and rhythm S1-S2, no rub or gallop Abdomen is soft nontender nondistended positive bowel sounds no hepatosplenomegaly Extremities no edema. right heel redness with no open ulceration noted Neuro alert and orientated to 3 - Labs CBC & Chem 7: 04/09/18 09:17 04/09/18 09:17 Labs: Abnormal Lab Results - Last 24 Hours (Table) 04/08/18 04/08/18 04/08/18 Range/Units 15:25 17:21 21:10 RDW (11.5-15.5) % Plt Count (150-450) k/uL Chloride (98-107) mmol/L Carbon Dioxide (22-30) mmol/L Glucose (74-99) mg/dL POC Glucose (mg/dL) 379 H 318 H (75-99) mg/dL Plasma Lactic Acid Marquise 2.6 H* (0.7-2.0) mmol/L Calcium (8.4-10.2) mg/dL Albumin (3.5-5.0) g/dL 04/08/18 04/09/18 04/09/18 Range/Units 23:07 06:30 09:17 RDW 16.6 H (11.5-15.5) % Plt Count 82 L (150-450) k/uL Chloride (98-107) mmol/L Carbon Dioxide (22-30) mmol/L Glucose (74-99) mg/dL POC Glucose (mg/dL) 313 H 311 H (75-99) mg/dL Plasma Lactic Acid Marquise (0.7-2.0) mmol/L Calcium (8.4-10.2) mg/dL Albumin (3.5-5.0) g/dL 04/09/18 04/09/18 04/09/18 Range/Units 09:17 09:17 12:33 RDW (11.5-15.5) % Plt Count (150-450) k/uL Chloride 109 H (98-107) mmol/L Carbon Dioxide 20 L (22-30) mmol/L Glucose 336 H (74-99) mg/dL POC Glucose (mg/dL) 262 H (75-99) mg/dL Plasma Lactic Acid Marquise 3.4 H* (0.7-2.0) mmol/L Calcium 8.3 L (8.4-10.2) mg/dL Albumin 3.2 L (3.5-5.0) g/dL Microbiology - Last 24 Hours (Table) 04/08/18 01:48 Urine Culture - Final Urine,Clean Catch 04/08/18 08:51 Blood Culture - Preliminary Blood No Growth after 24 hours 04/08/18 01:48 Blood Culture - Preliminary Blood No Growth after 24 hours Assessment and Plan Assessment: 1. Leukocytosis with sepsis. WBC 12.7. Lactic acid elevated to 4.0. Repeat 2.4. Dr. Nielsen has been consulted for infectious disease. Patient started on vancomycin and Levaquin. Also evidence of yeast under skin folds. Nystatin powder has been ordered 2. Nonhealing diabetic foot ulcer. Patient follows up in wound care clinic. per infectious disease continue antibiotic therapy with vancomycin and Aldactone. 3. Chronic thrombocytopenia. Dr. bowling had been consulted in the past states cytopenia related secondary to multiple comorbidities including liver disease, splenomegaly worsening with active infection. 4. Diabetes mellitus type 2 uncontrolled blood sugars. Home medications resumed at this time. hemoglobin A1c 11.1 cosmetology educator ordered. TSH level ordered 5. Morbid obesity 6. History of hypothyroidism 7. History of hyperlipedemia 8. History of bipolar depression. Home meds resumed 9. History of liver cirrhosis 10. History of sleep apnea 11. History of previous osteomyelitis 12. Depression to skin folds. Nystatin powder has been ordered. Infectious disease consulted 13. Constipation. Will order Colace DVT prophylaxis SCDs due to thrombocytopenia. GI prophylaxis Pepcid Social work consult has been placed to aid patient in community resources I performed an examination of the patient and discussed their management with the Nurse Practitioner. I have reviewed the Nurse Practitioner's notes and agree with the documented findings and plan of care
--- NOTE | 2018-04-09 15:29 | P.PN ---
Subjective Progress Note Date: 04/09/18 62-year-old female with superobesity presents to the emergency center feeling poorly with increasing shortness of breath discomforts generalized and worsening anxiety. Patient is well-known to the service from her care in the wound healing center for the treatment of the right diabetic foot ulceration that had been refractory to treatment but eventually responded to the total contact cast. The patient relates that home situation has markedly declined. Her son apparently was utilizing methamphetamine and cocaine as well as his . Because of this the child was removed from the home. The patient often says that because grandchild live in the home with her that was her only point of living in now that she is no longer there she is quite despondent. However she is now trying to determine how she can become well enough that she can care for the child herself and obtain custody. Admission blood sugar was elevated, lactic acid was elevated at 4 her white count was elevated at 12.7. With this she was admitted to hospital with concerns of sepsis in the infectious diseases consultation was requested. 04/09/2018 reveals a patient befitting sightly better today. Still sleepy but is denying fevers or chills. With the antibiotic therapy elevation wrap the foot and leg are showing some slight improvement with decreased swelling and decreased redness. Objective - Vital Signs Vital signs: Vital Signs Temp 98.2 F 04/09/18 12:25 Pulse 76 04/09/18 12:25 Resp 16 04/09/18 12:25 BP 145/75 04/09/18 12:25 Pulse Ox 94 L 04/09/18 12:25 Intake & Output 04/08/18 04/09/18 04/09/18 18:59 06:59 18:59 Intake Total 600 Balance 600 Weight 149.232 kg Intake: Oral 600 Other: Voiding Method Toilet Toilet # Voids 1 2 1 - Exam Pleasant 62-year-old woman with superobesity is comfortable at this time. Relates that she suffered a fall in March which is why she cropped her hair because of the kathleen that were applied to her scalp. HEENT: Anicteric conjunctiva are pink and moist nasal mucosa grossly intact without significant lesions, there is no thrush. Scalp is evidence of the heel lesion no drainage Neck: The neck is supple without significant lymphadenopathy or thyromegaly. Lungs: Symmetrical air entry with expiratory wheeze no bronchial sounds all dullness or egophony Heart: Regular rate and rhythm with an audible S1-S2, no S3 no S4. There is no significant murmur click or rub, PMI was nondisplaced. Abdomen: Obese Positive bowel sounds soft and nontender without palpable masses or organomegaly. There was no guarding or rebound. Extremities: The upper extremities have excellent pulses they are symmetric, no significant petechiae or telangiectasia. No splinter hemorrhages were noted. Lower extremities with chronic venous stasis changes but no open ulcerations on the pretibial areas at this time, the right heel shows evidence of the prior significant open ulceration currently has a small area of 0.1 x 0.1 x 0.1cm the may have some drainage but nothing is expressible at this time, the erythema and mild tenderness are improved in the last day edema is also improved. Neuro: Awake alert oriented to person place and time. There are no acute new gross focal sensory motor deficits except for peripheral neuropathy. - Labs CBC & Chem 7: 04/09/18 09:17 04/09/18 09:17 Labs: Abnormal Lab Results - Last 24 Hours (Table) 04/08/18 04/08/18 04/08/18 Range/Units 15:25 17:21 21:10 RDW (11.5-15.5) % Plt Count (150-450) k/uL Chloride (98-107) mmol/L Carbon Dioxide (22-30) mmol/L Glucose (74-99) mg/dL POC Glucose (mg/dL) 379 H 318 H (75-99) mg/dL Plasma Lactic Acid Marquise 2.6 H* (0.7-2.0) mmol/L Calcium (8.4-10.2) mg/dL Albumin (3.5-5.0) g/dL 04/08/18 04/09/18 04/09/18 Range/Units 23:07 06:30 09:17 RDW 16.6 H (11.5-15.5) % Plt Count 82 L (150-450) k/uL Chloride (98-107) mmol/L Carbon Dioxide (22-30) mmol/L Glucose (74-99) mg/dL POC Glucose (mg/dL) 313 H 311 H (75-99) mg/dL Plasma Lactic Acid Marquise (0.7-2.0) mmol/L Calcium (8.4-10.2) mg/dL Albumin (3.5-5.0) g/dL 04/09/18 04/09/18 04/09/18 Range/Units 09:17 09:17 12:33 RDW (11.5-15.5) % Plt Count (150-450) k/uL Chloride 109 H (98-107) mmol/L Carbon Dioxide 20 L (22-30) mmol/L Glucose 336 H (74-99) mg/dL POC Glucose (mg/dL) 262 H (75-99) mg/dL Plasma Lactic Acid Marquise 3.4 H* (0.7-2.0) mmol/L Calcium 8.3 L (8.4-10.2) mg/dL Albumin 3.2 L (3.5-5.0) g/dL Microbiology - Last 24 Hours (Table) 04/08/18 01:48 Urine Culture - Final Urine,Clean Catch 04/08/18 08:51 Blood Culture - Preliminary Blood No Growth after 24 hours 04/08/18 01:48 Blood Culture - Preliminary Blood No Growth after 24 hours Laboratory Results WBC 7.9 k/uL (3.8-10.6) 04/09/18 09:17 RBC 4.38 m/uL (3.80-5.40) 04/09/18 09:17 Hgb 12.1 gm/dL (11.4-16.0) 04/09/18 09:17 Hct 38.2 % (34.0-46.0) 04/09/18 09:17 MCV 87.3 fL (80.0-100.0) 04/09/18 09:17 MCH 27.6 pg (25.0-35.0) 04/09/18 09:17 MCHC 31.6 g/dL (31.0-37.0) 04/09/18 09:17 RDW 16.6 % (11.5-15.5) H 04/09/18 09:17 Plt Count 82 k/uL (150-450) L 04/09/18 09:17 Neutrophils % 76 % 04/09/18 09:17 Lymphocytes % 14 % 04/09/18 09:17 Monocytes % 5 % 04/09/18 09:17 Eosinophils % 4 % 04/09/18 09:17 Basophils % 1 % 04/09/18 09:17 Neutrophils # 6.0 k/uL (1.3-7.7) 04/09/18 09:17 Lymphocytes # 1.1 k/uL (1.0-4.8) 04/09/18 09:17 Monocytes # 0.4 k/uL (0-1.0) 04/09/18 09:17 Eosinophils # 0.3 k/uL (0-0.7) 04/09/18 09:17 Basophils # 0.1 k/uL (0-0.2) 04/09/18 09:17 Manual Slide Review Performed 04/08/18 01:48 Hypochromasia Moderate 04/09/18 09:17 Poikilocytosis Slight 04/09/18 09:17 Anisocytosis Slight 04/09/18 09:17 PT 11.5 sec (9.0-12.0) 04/08/18 01:48 INR 1.1 (<1.2) 04/08/18 01:48 APTT 24.4 sec (22.0-30.0) 04/08/18 01:48 Sodium 138 mmol/L (137-145) 04/09/18 09:17 Potassium 4.4 mmol/L (3.5-5.1) 04/09/18 09:17 Chloride 109 mmol/L (98-107) H 04/09/18 09:17 Carbon Dioxide 20 mmol/L (22-30) L 04/09/18 09:17 Anion Gap 9 mmol/L 04/09/18 09:17 BUN 12 mg/dL (7-17) 04/09/18 09:17 Creatinine 0.66 mg/dL (0.52-1.04) 04/09/18 09:17 Est GFR (CKD-EPI)AfAm >90 (>60 ml/min/1.73 sqM) 04/09/18 09:17 Est GFR (CKD-EPI)NonAf >90 (>60 ml/min/1.73 sqM) 04/09/18 09:17 Glucose 336 mg/dL (74-99) H 04/09/18 09:17 POC Glucose (mg/dL) 262 mg/dL (75-99) H 04/09/18 12:33 POC Glu Helmet Hat Puncher ID Tesha Pop 04/09/18 12:[address] Glu mg/dL 283 04/08/18 01:48 Hemoglobin A1c 11.5 % (4.0-6.0) H 04/08/18 01:48 Lactic Ac Sepsis Rflx Y 04/09/18 09:45 Plasma Lactic Acid Marquise 1.2 mmol/L (0.7-2.0) 04/09/18 12:48 Calcium 8.3 mg/dL (8.4-10.2) L 04/09/18 09:17 Total Bilirubin 0.6 mg/dL (0.2-1.3) 04/09/18 09:17 AST 27 U/L (14-36) 04/09/18 09:17 ALT 17 U/L (9-52) 04/09/18 09:17 Alkaline Phosphatase 79 U/L (38-126) 04/09/18 09:17 Total Creatine Kinase 46 U/L (30-135) 04/08/18 01:48 CK-MB (CK-2) 0.9 ng/mL (0.0-2.4) 04/08/18 01:48 CK-MB (CK-2) Rel Index 2.0 04/08/18 01:48 Troponin I <0.012 ng/mL (0.000-0.034) 04/08/18 01:48 C-Reactive Protein 22.3 mg/L (<10.0) H 04/08/18 01:48 Total Protein 6.4 g/dL (6.3-8.2) 04/09/18 09:17 Albumin 3.2 g/dL (3.5-5.0) L 04/09/18 09:17 TSH 3.630 mIU/L (0.465-4.680) 04/09/18 09:17 Urine Color Light Yellow 04/08/18 01:48 Urine Appearance Clear (Clear) 04/08/18 01:48 Urine pH 5.0 (5.0-8.0) 04/08/18 01:48 Ur Specific [place] 1.023 (1.001-1.035) 04/08/18 01:48 Urine Protein Negative (Negative) 04/08/18 01:48 Urine Glucose (UA) 4+ (Negative) H 04/08/18 01:48 Urine Ketones Negative (Negative) 04/08/18 01:48 Urine Blood Trace (Negative) H 04/08/18 01:48 Urine Nitrite Negative (Negative) 04/08/18 01:48 Urine Bilirubin Negative (Negative) 04/08/18 01:48 Urine Urobilinogen <2.0 mg/dL (<2.0) 04/08/18 01:48 Ur Leukocyte Esterase Negative (Negative) 04/08/18 01:48 Urine RBC 1 /hpf (0-5) 04/08/18 01:48 Urine WBC 2 /hpf (0-5) 04/08/18 01:48 Ur Squamous Epith Cells 2 /hpf (0-4) 04/08/18 01:48 Urine Mucus Rare /hpf (None) H 04/08/18 01:48 Influenza Type A RNA Not Detected (Not Detectd) 04/08/18 00:43 Influenza Type B (PCR) Not Detected (Not Detectd) 04/08/18 00:43 Microbiology 04/08/18 01:48 Urine,Clean Catch Urine Culture - Final 04/08/18 08:51 Blood Blood Culture - Preliminary No Growth after 24 hours 04/08/18 01:48 Blood Blood Culture - Preliminary No Growth after 24 hours Assessment and Plan (1) Morbid obesity with BMI of 45.0-49.9, adult Current Visit: Yes Status: Acute Code(s): E66.01 - MORBID (SEVERE) OBESITY DUE TO EXCESS CALORIES SNOMED Code(s): 084771165 (2) Cellulitis of right lower extremity Narrative/Plan: 62-year-old female presents to Hospital feeling poorly with increasing weakness generalized malaise and ongoing difficulties with worsening anxiety. Is noted there is no significant psychosocial change in her home environment due to the granddaughter that lives with her being placed in foster care because the drug use of the granddaughters parents. The patient would like to talk to social work to see what her plans can be as far is working toward getting guardianship of her granddaughter. This prospect does seem to give her some hope. At this time is evidence of cellulitis of right lower extremity with resultant sepsis from this. The right heel has minimal drainage and a small area that may be open. Local wound care with Silvadene wrap is been requested and will be placed from the foot to the leg which we'll treat the edema and cellulitis. She should offload the site is much as possible. She does have evidence of sepsis present on admission and consequently antibiotic therapy with vancomycin has been started will also cover for gram- negative organisms especially pseudomonas given her prior history with the addition of Azactam. The patient is up-to-date with her tetanus vaccine. She is in need of much improved glucose control. She's also has severe lactic acidosis that his also likely contributed from her uncontrolled diabetes. April patient is showing some improvement since admission. The swelling erythema and tenderness of improved since yesterday. Blood glucose control remains very difficult, but very important to improve her underlying infection. Patient's mood is improved she has talked to social work. Of note the lactic acid level remains elevated appears to be in the basis of her uncontrolled diabetes rather than ongoing sepsis since clinically she is improving. Vaginal yeast infection will be treated with fluconazole and Colace added with some constipation being noted. Current Visit: No Status: Acute Code(s): L03.115 - CELLULITIS OF RIGHT LOWER LIMB SNOMED Code(s): 769083211 (3) Sepsis Current Visit: Yes Status: Acute Code(s): A41.9 - SEPSIS, UNSPECIFIED ORGANISM SNOMED Code(s): 93595097
[2018-04-09 17:00] LABS: Glucose,Whole Blood 313 mg/dL (75-99)
[2018-04-09] MEDS: FLUCONAZOLE 100 MG TAB PO SCH (17:01)
[2018-04-09 21:26] LABS: Glucose,Whole Blood 185 mg/dL (75-99)
[2018-04-09] MEDS: ATORVASTATIN 20 MG TAB PO SCH (21:32)
[2018-04-09] MEDS: LATANOPROST 0.005% OPHTH DROPS 2.5 ML BTL BOTH EYES SCH (21:32)
[2018-04-09] MEDS: DOCUSATE 100 MG CAP PO SCH (21:32)
[2018-04-09] MEDS: HYDROcodone/APAP 10-325MG 1 EACH TAB PO PRN (21:40)
[2018-04-10] MEDS ORDERED: VANCOMYCIN TROUGH DUE 1 EACH MISC MISCELLANE ONE (04:00)
[2018-04-10 04:20] LABS: Anisocytosis Slight; Basophils % (A) 1 %; Eosinophils # (A) 0.3 k/uL (0-0.7); Eosinophils % (A) 7 %; HCT 34.9 % (34.0-46.0); HGB 11.3 gm/dL (11.4-16.0); Hypochromasia Moderate; Lymphocytes # (A) 1.1 k/uL (1.0-4.8); Lymphocytes % (A) 24 %; MCH 28.2 pg (25.0-35.0); MCHC 32.5 g/dL (31.0-37.0); MCV 86.7 fL (80.0-100.0); Mean Platelet Volume 9.2; Monocytes # (A) 0.3 k/uL (0-1.0); Monocytes % (A) 6 %; Neutrophils # (A) 2.8 k/uL (1.3-7.7); Neutrophils % (A) 60 %; Platelet Count 58 k/uL (150-450); Poikilocytosis Slight; RBC 4.02 m/uL (3.80-5.40); RDW 16.8 % (11.5-15.5); WBC 4.6 k/uL (3.8-10.6)
[2018-04-10 05:07] LABS: ALT 29 U/L (9-52); AST 23 U/L (14-36); Albumin 2.7 g/dL (3.5-5.0); Alkaline Phosphatase 68 U/L (38-126); Anion Gap 5 mmol/L; Blood Urea Nitrogen 12 mg/dL (7-17); Calcium 8.3 mg/dL (8.4-10.2); Carbon Dioxide 22 mmol/L (22-30); Chloride 113 mmol/L (98-107); Glucose 127 mg/dL (74-99); Sodium 140 mmol/L (137-145); Total Bilirubin 0.4 mg/dL (0.2-1.3); Total Protein 5.8 g/dL (6.3-8.2)
[2018-04-10] MEDS: CYCLOBENZAPRINE 10 MG TAB PO SCH ×3 (05:20→20:50)
[2018-04-10] MEDS: LEVOTHYROXINE 100 MCG TAB PO SCH (05:23)
[2018-04-10] MEDS: VANCOMYCIN 2,000 MG in SODIUM CHLORIDE 0.9% 500 ML 500 ML IVPB SCH ×2 (05:24→18:04)
[2018-04-10] MEDS: SODIUM CHLORIDE 0.9% 1,000 ML IV SCH ×5 (05:25→23:57)
[2018-04-10 07:24] LABS: Glucose,Whole Blood 85 mg/dL (75-99)
[2018-04-10] MEDS: AZTREONAM 2 GM in SODIUM CHLORIDE 0.9% 100 ML IVPB SCH ×4 (07:59→23:55)
[2018-04-10] MEDS: FLUCONAZOLE 100 MG TAB PO SCH (08:00)
[2018-04-10] MEDS: ASPIRIN 81 MG PO SCH (08:01)
[2018-04-10] MEDS: VENLAFAXINE HCL ER 150 MG CAP PO SCH (08:01)
[2018-04-10] MEDS: TRIAMTERENE-HCTZ 37.5-25MG 1 EACH TAB PO SCH (08:01)
[2018-04-10] MEDS: ARIPiprazole 2 MG TAB PO SCH (08:01)
[2018-04-10] MEDS: PREGABALIN 75 MG CAP PO SCH ×2 (08:02→20:51)
[2018-04-10] MEDS: FAMOTIDINE 20 MG TAB PO SCH (08:02)
[2018-04-10] MEDS: DOCUSATE 100 MG CAP PO SCH ×2 (08:02→20:50)
[2018-04-10] MEDS: LORATADINE 10 MG TAB PO SCH (08:02)
[2018-04-10] MEDS: INSULIN DETEMIR 100 UNIT/ML 10 ML VIAL SQ SCH ×2 (08:03→20:56)
[2018-04-10] MEDS: INSULIN ASPART 100 UNIT/ML 1 ML 10 ML VIAL SQ SCH ×3 (08:04→18:04)
[2018-04-10] MEDS: NYSTATIN 100,000 UNIT/GM POWD 15 GM TOPICAL SCH ×2 (09:16→20:51)
[2018-04-10] MEDS: HYDROcodone/APAP 10-325MG 1 EACH TAB PO PRN ×2 (10:39→21:20)
[2018-04-10 11:50] LABS: Glucose,Whole Blood 158 mg/dL (75-99)
--- NOTE | 2018-04-10 12:39 | P.PN ---
Subjective Progress Note Date: 04/10/18 This is a 62-year-old female patient of Dr. Seymour. Patient presented to the emergency room with complaints of anxiety and shortness of breath. Patient has had multiple admissions and visits to the emergency room. Patient reports that her granddaughter has been placed in foster care and that this has increased to her anxiety. Patient does have a past medical history of asthma, cancer, COPD, diabetes mellitus, I disorder, hyperlipidemia, liver disorder, muscle skeletal disorder, neurological disorder, osteoathritis, thyroid disorder. Patient also has history of left heel ulcer that she follows with Dr. Nielsen in the wound care clinic. Chest x-ray completed showing normal chest. No change. EKG completed showing normal sinus rhythm, left axis deviation. Possible anterior lateral infarct age undetermined. Patient's blood sugar in remission 463. Patient's lactic acid 4.0 and WBC elevated at 12.7. Patient started on Levaquin and vancomycin per ER. Infectious disease has been consulted. Patient also has evidence of yeast under skin folds. Ordered nystatin at this time. Home insulin regime has been ordered. At this time patient denies chest pain or shortness breath. Patient denies nausea vomiting diarrhea. Patient denies any urinary burning or frequency. on 04/09/2018 patient is currently resting in bed. Patient does state she feels a bit improved from yesterday. Infectious disease is following. At this time patient denies chest pain or shortness of breath. Patient denies nausea vomiting or diarrhea. Patient denies any urinary burning or frequency. Patient is complaining of some constipation will add Lasix at this time. TSH level ordered. blood sugars remain high but are improving On 04/10/2018 patient is currently resting in bed. Patient remains sleepy. At this time patient denies nausea vomiting or diarrhea. Patient denies any urinary burning or frequency. Patient denies any chest pain or shortness breath Objective - Vital Signs Vital signs: Vital Signs Temp 97.4 F L 04/10/18 07:38 Pulse 76 04/10/18 07:38 Resp 20 04/10/18 07:38 BP 119/73 04/10/18 07:38 Pulse Ox 94 L 04/10/18 07:38 Intake & Output 04/09/18 04/10/18 04/10/18 18:59 06:59 18:59 Intake Total 400 Balance 400 Intake: Oral 400 Other: Voiding Method Toilet # Voids 1 1 1 # Bowel Movements 1 1 - Exam Head normocephalic Neck supple Lungs clear to auscultation bilaterally no wheezing or crackles Heart regular rate and rhythm S1-S2, no rub or gallop Abdomen is soft nontender nondistended positive bowel sounds no hepatosplenomegaly Extremities no edema. right heel redness with no open ulceration noted Neuro alert and orientated to 3 - Labs CBC & Chem 7: 04/10/18 03:25 04/10/18 03:25 Labs: Abnormal Lab Results - Last 24 Hours (Table) 04/09/18 04/09/18 04/09/18 Range/Units 12:33 16:57 21:24 Hgb (11.4-16.0) gm/dL RDW (11.5-15.5) % Plt Count (150-450) k/uL Chloride (98-107) mmol/L Glucose (74-99) mg/dL POC Glucose (mg/dL) 262 H 313 H 185 H (75-99) mg/dL Calcium (8.4-10.2) mg/dL Total Protein (6.3-8.2) g/dL Albumin (3.5-5.0) g/dL 04/10/18 04/10/18 04/10/18 Range/Units 03:25 03:25 11:47 Hgb 11.3 L (11.4-16.0) gm/dL RDW 16.8 H (11.5-15.5) % Plt Count 58 L (150-450) k/uL Chloride 113 H (98-107) mmol/L Glucose 127 H (74-99) mg/dL POC Glucose (mg/dL) 158 H (75-99) mg/dL Calcium 8.3 L (8.4-10.2) mg/dL Total Protein 5.8 L (6.3-8.2) g/dL Albumin 2.7 L (3.5-5.0) g/dL Microbiology - Last 24 Hours (Table) 04/08/18 08:51 Blood Culture - Preliminary Blood No Growth after 48 hours 04/08/18 01:48 Blood Culture - Preliminary Blood No Growth after 48 hours 04/08/18 01:48 Urine Culture - Final Urine,Clean Catch Assessment and Plan Assessment: 1. Leukocytosis with sepsis. WBC 12.7. Lactic acid elevated to 4.0. Repeat 2.4. Dr. Nielsen has been consulted for infectious disease. Patient started on vancomycin and Levaquin. Also evidence of yeast under skin folds. Nystatin powder has been ordered 2. Nonhealing right heel diabetic foot ulcer. Patient follows up in wound care clinic. per infectious disease continue antibiotic therapy with vancomycin and Aldactone. 3. Chronic thrombocytopenia. Dr. bowling had been consulted in the past states cytopenia related secondary to multiple comorbidities including liver disease, splenomegaly worsening with active infection. 4. Diabetes mellitus type 2 with hyperglycemia. Home medications resumed at this time. hemoglobin A1c 11.1 rib builder ordered. TSH level 3.3630 5. Morbid obesity 6. History of hypothyroidism 7. History of hyperlipedemia 8. History of bipolar depression. Home meds resumed. Abilify added 9. History of liver cirrhosis 10. History of sleep apnea 11. History of previous osteomyelitis 12. yeast to skin folds. Nystatin powder has been ordered. Infectious disease consulted 13. Constipation. Will order Colace 14. Vaginal yeast infection. Patient started on fluconazole per infectious disease DVT prophylaxis SCDs due to thrombocytopenia. GI prophylaxis Pepcid Social work consult has been placed to aid patient in community resources I performed an examination of the patient and discussed their management with the Nurse Practitioner. I have reviewed the Nurse Practitioner's notes and agree with the documented findings and plan of care
[2018-04-10 18:03] LABS: Glucose,Whole Blood 100 mg/dL (75-99)
[2018-04-10] MEDS: ATORVASTATIN 20 MG TAB PO SCH (20:50)
[2018-04-10] MEDS: LATANOPROST 0.005% OPHTH DROPS 2.5 ML BTL BOTH EYES SCH (20:51)
[2018-04-10 21:01] LABS: Glucose,Whole Blood 94 mg/dL (75-99)
[2018-04-11] MEDS: VANCOMYCIN 2,000 MG in SODIUM CHLORIDE 0.9% 500 ML 500 ML IVPB SCH ×2 (05:24→17:13)
[2018-04-11] MEDS: SODIUM CHLORIDE 0.9% 1,000 ML IV SCH (05:29)
[2018-04-11] MEDS: LEVOTHYROXINE 100 MCG TAB PO SCH (05:30)
[2018-04-11 08:18] LABS: Glucose,Whole Blood 104 mg/dL (75-99)
[2018-04-11] MEDS: LORATADINE 10 MG TAB PO SCH (08:46)
[2018-04-11] MEDS: FAMOTIDINE 20 MG TAB PO SCH (08:46)
[2018-04-11] MEDS: DOCUSATE 100 MG CAP PO SCH (08:46)
[2018-04-11] MEDS: TRIAMTERENE-HCTZ 37.5-25MG 1 EACH TAB PO SCH (08:46)
[2018-04-11] MEDS: PREGABALIN 75 MG CAP PO SCH (08:46)
[2018-04-11] MEDS: ASPIRIN 81 MG PO SCH (08:46)
[2018-04-11] MEDS: VENLAFAXINE HCL ER 150 MG CAP PO SCH (08:46)
[2018-04-11] MEDS: ARIPiprazole 2 MG TAB PO SCH (08:46)
[2018-04-11] MEDS: CYCLOBENZAPRINE 10 MG TAB PO SCH (08:46)
[2018-04-11] MEDS: FLUCONAZOLE 100 MG TAB PO SCH (08:46)
[2018-04-11] MEDS: NYSTATIN 100,000 UNIT/GM POWD 15 GM TOPICAL SCH (08:47)
[2018-04-11] MEDS: INSULIN DETEMIR 100 UNIT/ML 10 ML VIAL SQ SCH (08:47)
[2018-04-11] MEDS: INSULIN ASPART 100 UNIT/ML 1 ML 10 ML VIAL SQ SCH ×3 (08:47→18:15)
[2018-04-11] MEDS: AZTREONAM 2 GM in SODIUM CHLORIDE 0.9% 100 ML IVPB SCH ×2 (09:47→15:46)
[2018-04-11 09:57] LABS: Anisocytosis Slight; Basophils % (A) 1 %; Eosinophils # (A) 0.3 k/uL (0-0.7); Eosinophils % (A) 6 %; HCT 37.9 % (34.0-46.0); Hypochromasia Marked; Lymphocytes # (A) 1.1 k/uL (1.0-4.8); Lymphocytes % (A) 21 %; MCH 27.8 pg (25.0-35.0); MCHC 31.8 g/dL (31.0-37.0); MCV 87.5 fL (80.0-100.0); Mean Platelet Volume 9.2; Monocytes # (A) 0.2 k/uL (0-1.0); Monocytes % (A) 5 %; Neutrophils # (A) 3.4 k/uL (1.3-7.7); Neutrophils % (A) 66 %; Poikilocytosis Slight; RBC 4.33 m/uL (3.80-5.40); RDW 16.5 % (11.5-15.5); WBC 5.2 k/uL (3.8-10.6)
[2018-04-11 10:14] LABS: Platelet Count 72 k/uL (150-450)
[2018-04-11 10:22] LABS: ALT 25 U/L (9-52); AST 29 U/L (14-36); Albumin 3.1 g/dL (3.5-5.0); Alkaline Phosphatase 84 U/L (38-126); Anion Gap 4 mmol/L; Blood Urea Nitrogen 13 mg/dL (7-17); Calcium 8.7 mg/dL (8.4-10.2); Carbon Dioxide 27 mmol/L (22-30); Chloride 111 mmol/L (98-107); Glucose 181 mg/dL (74-99); Potassium 4.4 mmol/L (3.5-5.1); Sodium 142 mmol/L (137-145); Total Bilirubin 0.6 mg/dL (0.2-1.3); Total Protein 6.3 g/dL (6.3-8.2)
[2018-04-11 12:08] LABS: Glucose,Whole Blood 141 mg/dL (75-99)
--- NOTE | 2018-04-11 14:42 | P.DS ---
Providers Date of admission: 04/08/18 05:49 Expected date of discharge: 04/11/18 Attending physician: Lilibeth Seymour Consults: 04/08/18 09:11 Consult Physician Routine Consulting Provider: Chris Nielsen Consult Reason/Comments: diabetic foot ulcer Do you want consulting provider notified?: Yes Primary care physician: Lilibeth Seymour [facility] Course: Discharge Diagnosis 1. Leukocytosis with sepsis. WBC 12.7. Lactic acid elevated to 4.0. Repeat 2.4. Dr. Nielsen has been consulted for infectious disease. Patient started on vancomycin and Levaquin. Also evidence of yeast under skin folds. Nystatin powder has been ordered. White blood cell improving to 5.2. Per infectious disease patient will be discharged home on Cipro 500 twice a day for 10 days. Blood cultures currently showing no growth 2. Nonhealing right heel diabetic foot ulcer. Patient follows up in wound care clinic. Per infectious disease patient will be discharged on Cipro for antibiotic. Patient to follow-up with Dr. Nielsen in the wound care center 3. Chronic thrombocytopenia. Dr. bowling had been consulted in the past states cytopenia related secondary to multiple comorbidities including liver disease, splenomegaly worsening with active infection. 4. Diabetes mellitus type 2 with hyperglycemia. Home medications resumed at this time. hemoglobin A1c 11.1 certified lactation educator ordered. TSH level 3.3630. 5. Morbid obesity 6. History of hypothyroidism 7. History of hyperlipedemia 8. History of bipolar depression. Home meds resumed. Abilify added 9. History of liver cirrhosis 10. History of sleep apnea 11. History of previous osteomyelitis 12. yeast to skin folds. Nystatin powder has been ordered. Infectious disease consulted 13. Constipation. Will order Colace 14. Vaginal yeast infection. Patient started on fluconazole per infectious disease. Patient will 3 more days of fluconazole and nystatin Hospital Course This is a 62-year-old female patient of Dr. Seymour. Patient presented to the emergency room with complaints of anxiety and shortness of breath. Patient has had multiple admissions and visits to the emergency room. Patient reports that her granddaughter has been placed in foster care and that this has increased to her anxiety. Patient does have a past medical history of asthma, cancer, COPD, diabetes mellitus, I disorder, hyperlipidemia, liver disorder, muscle skeletal disorder, neurological disorder, osteoathritis, thyroid disorder. Patient also has history of left heel ulcer that she follows with Dr. Nielsen in the wound care clinic. Chest x-ray completed showing normal chest. No change. EKG completed showing normal sinus rhythm, left axis deviation. Possible anterior lateral infarct age undetermined. Patient's blood sugar in remission 463. Patient's lactic acid 4.0 and WBC elevated at 12.7. Patient started on Levaquin and vancomycin per ER. Infectious disease has been consulted. Patient also has evidence of yeast under skin folds. Ordered nystatin at this time. Home insulin regime has been ordered. At this time patient denies chest pain or shortness breath. Patient denies nausea vomiting diarrhea. Patient denies any urinary burning or frequency. on 04/09/2018 patient is currently resting in bed. Patient does state she feels a bit improved from yesterday. Infectious disease is following. At this time patient denies chest pain or shortness of breath. Patient denies nausea vomiting or diarrhea. Patient denies any urinary burning or frequency. Patient is complaining of some constipation will add Lasix at this time. TSH level ordered. blood sugars remain high but are improving On 04/10/2018 patient is currently resting in bed. Patient remains sleepy. At this time patient denies nausea vomiting or diarrhea. Patient denies any urinary burning or frequency. Patient denies any chest pain or shortness breath On 04/11/2018 patient is alert and oriented 3. Patient is currently up eating lunch. Blood sugars have significantly improved. At this time patient denies chest pain or shortness breath. Patient denies nausea vomiting or diarrhea. Denies any urinary burning or frequency. Discussed case with infectious disease. Patient will be DC'd on Cipro 500 twice a day for 10 days. Patient to follow-up closely with infectious disease and primary care provider I performed an examination of the patient and discussed their management with the Nurse Practitioner. I have reviewed the Nurse Practitioner's notes and agree with the documented findings and plan of care Patient Condition at Discharge: Stable Plan - Discharge Summary Discharge Rx Participant: No New Discharge Prescriptions: New Ciprofloxacin HCl [Cipro] 500 mg PO BID #20 tab ARIPiprazole [Abilify] 2 mg PO DAILY 30 Days #30 tab Docusate [Colace] 100 mg PO BID 30 Days #60 cap Levothyroxine Sodium [Synthroid] 100 mcg PO DAILY@0630 tab Fluconazole [Diflucan] 100 mg PO DAILY 3 Days #3 tab Nystatin 100,000 Unit/gm Powd [Mycostatin Powder] 1 applic TOPICAL BID 7 Days #14 applic Continue metFORMIN HCL [Glucophage] 850 mg PO BID Cyclobenzaprine [Flexeril] 10 mg PO BID tab Pregabalin [Lyrica] 75 mg PO BID cap Triamterene/Hydrochlorothiazid [Maxzide 37.5-25] 1 tab PO DAILY Aspirin EC [Ecotrin Low Dose] 81 mg PO DAILY Latanoprost [Xalatan 0.005%] 1 drop BOTH EYES HS INSULIN LISPRO (HumaLOG) [humaLOG] 30 units SQ AC-TID Venlafaxine HCl ER [Effexor XR] 150 mg PO DAILY Insulin Glargine,Hum.rec.anlog [Basaglar Kwikpen U-100] 80 unit SQ HS Insulin Glargine,Hum.rec.anlog [Basaglar Kwikpen U-100] 100 unit SQ QAM Simvastatin [Zocor] 40 mg PO HS Cetirizine HCl [Zyrtec] 10 mg PO DAILY Discharge Medication List metFORMIN HCL [Glucophage] 850 mg PO BID 02/18/14 [History] Cyclobenzaprine [Flexeril] 10 mg PO BID tab 02/16/18 [Rx] Pregabalin [Lyrica] 75 mg PO BID cap 02/16/18 [Rx] Aspirin EC [Ecotrin Low Dose] 81 mg PO DAILY 04/08/18 [History] Cetirizine HCl [Zyrtec] 10 mg PO DAILY 04/08/18 [History] INSULIN LISPRO (HumaLOG) [humaLOG] 30 units SQ AC-TID 04/08/18 [History] Insulin Glargine,Hum.rec.anlog [Basaglar Kwikpen U-100] 80 unit SQ HS 04/08/18 [ History] Insulin Glargine,Hum.rec.anlog [Basaglar Kwikpen U-100] 100 unit SQ QAM [History] Latanoprost [Xalatan 0.005%] 1 drop BOTH EYES HS 04/08/18 [History] Simvastatin [Zocor] 40 mg PO HS 04/08/18 [History] Triamterene/Hydrochlorothiazid [Maxzide 37.5-25] 1 tab PO DAILY 04/08/18 [ History] Venlafaxine HCl ER [Effexor XR] 150 mg PO DAILY 04/08/18 [History] ARIPiprazole [Abilify] 2 mg PO DAILY 30 Days #30 tab 04/11/18 [Rx] Ciprofloxacin HCl [Cipro] 500 mg PO BID #20 tab 04/11/18 [Rx] Docusate [Colace] 100 mg PO BID 30 Days #60 cap 04/11/18 [Rx] Fluconazole [Diflucan] 100 mg PO DAILY 3 Days #3 tab 04/11/18 [Rx] Levothyroxine Sodium [Synthroid] 100 mcg PO DAILY@0630 tab 04/11/18 [Rx] Nystatin 100,000 Unit/gm Powd [Mycostatin Powder] 1 applic TOPICAL BID 7 Days # 14 applic 04/11/18 [Rx] Follow up Appointment(s)/Referral(s): Lilibeth Seymour MD [Primary Care Provider] - 1-2 days Chris Nielsen MD [STAFF PHYSICIAN] - 1 Week Activity/Diet/Wound Care/Special Instructions: Activity as tolerated Diet carb consistent heart healthy Discharge Disposition: HOME SELF-CARE
[2018-04-11 17:04] LABS: Glucose,Whole Blood 100 mg/dL (75-99)
[2018-04-11 17:30] VITALS: BP 141/71; PULSE 77; RESP 20; TEMP 98.1
[2018-04-12] MEDS ORDERED: VANCOMYCIN TROUGH DUE 1 EACH MISC MISCELLANE ONE (04:00)
== END 2018-04-11 19:17 | disposition home or self-care (01) | DRG 872 ==
LOC: EC 23:39 → 4MS4W 04-08 05:49 → 6PED 04-08 06:53
PROVIDERS: ADMIT Internal Medicine; ATTEND Internal Medicine
DX: A41.9 Sepsis, unspecified organism (principal); E87.2 Acidosis; F31.30 Bipolar disorder, current episode depressed, mild or moderate severity, unspecified; L03.115 Cellulitis of right lower limb; Z68.42 Body mass index [BMI] 45.0-49.9, adult; B37.2 Candidiasis of skin and nail; B37.3 Candidiasis of vulva and vagina; D69.6 Thrombocytopenia, unspecified; E03.9 Hypothyroidism, unspecified; E11.621 Type 2 diabetes mellitus with foot ulcer; E11.65 Type 2 diabetes mellitus with hyperglycemia; E66.01 Morbid (severe) obesity due to excess calories; E78.5 Hyperlipidemia, unspecified; F41.0 Panic disorder [episodic paroxysmal anxiety]; G47.30 Sleep apnea, unspecified; H40.9 Unspecified glaucoma; J44.9 Chronic obstructive pulmonary disease, unspecified; K59.00 Constipation, unspecified; K74.60 Unspecified cirrhosis of liver; L97.519 Non-pressure chronic ulcer of other part of right foot with unspecified severity; Z79.4 Long term (current) use of insulin; Z79.82 Long term (current) use of aspirin; Z79.890 Hormone replacement therapy; Z79.899 Other long term (current) drug therapy; Z82.49 Family history of ischemic heart disease and other diseases of the circulatory system; Z82.3 Family history of stroke; Z85.41 Personal history of malignant neoplasm of cervix uteri; Z87.891 Personal history of nicotine dependence; Z90.710 Acquired absence of both cervix and uterus; Z86.19 Personal history of other infectious and parasitic diseases; M19.90 Unspecified osteoarthritis, unspecified site; Z88.1 Allergy status to other antibiotic agents; Z88.0 Allergy status to penicillin; Z91.81 History of falling; Z98.49 Cataract extraction status, unspecified eye
CPT/HCPCS: 36415; 71045; 80053; 80202; 81001; 82550; 82553; 83036; 83605; 84443; 84484; 85025; 85610; 85730; 86140; 87040; 87086; 87502; 93005; 94645; 96361; 96365; 96366; 96367; 99285

== ENCOUNTER 2018-06-05 21:31 | Emergency (ER) | payer OTHER ==
[2018-06-05 21:43] VITALS: RESP 16; TEMP 98.3
--- NOTE | 2018-06-05 23:05 | ED ---
Extremity Problem HPI - General Chief complaint: Extremity Problem,Nontraumatic Stated complaint: LFT foot pain Time Seen by Provider: 06/05/18 21:52 Source: patient Mode of arrival: ambulatory Limitations: no limitations - History of Present Illness Initial comments: This patient is a 62-year-old woman with history of diabetes and neuropathy, who complains of having pain to the left heel and the lateral aspect of the posterior part of the hindfoot. The patient states this been going on for a few days now. She finds it somewhat strange because she states that her foot is usually numb. She states this does not feel like the usual pain she gets with the neuropathy. She describes as an aching. It is worse if she presses on the foot. Patient has not noted other symptoms. No fever or chills. No chest pain, cough, dyspnea, palpitations or lightheadedness. No pain to the leg. There is no pain in the forefoot. MD Complaint: extremity pain -: days(s) Location: left, other (Foot) History of Same: No Radiation: none Quality: aching Consistency: constant Improves with: nothing Worsens with: nothing Associated Symptoms: denies other symptoms - Related Data Home Medications Medication Instructions Recorded Confirmed metFORMIN HCL [Glucophage] 850 mg PO BID 02/18/14 06/05/18 Aspirin EC [Ecotrin Low Dose] 81 mg PO DAILY 04/08/18 06/05/18 Cetirizine HCl [Zyrtec] 10 mg PO DAILY 04/08/18 06/05/18 INSULIN LISPRO (HumaLOG) [humaLOG] 30 units SQ AC-TID 04/08/18 06/05/18 Insulin Glargine,Hum.rec.anlog 80 unit SQ HS 04/08/18 06/05/18 [Basaglar Kwikpen U-100] Insulin Glargine,Hum.rec.anlog 100 unit SQ QAM 04/08/18 06/05/18 [Basaglar Kwikpen U-100] Latanoprost [Xalatan 0.005%] 1 drop BOTH EYES HS 04/08/18 06/05/18 Simvastatin [Zocor] 40 mg PO HS 04/08/18 06/05/18 Triamterene/Hydrochlorothiazid 1 tab PO BID@1000,1400 04/08/18 06/05/18 [Maxzide 37.5-25] Venlafaxine HCl ER [Effexor XR] 150 mg PO DAILY 04/08/18 06/05/18 HYDROcodone/APAP 10-325MG [[place] 1 tab PO Q8H PRN 06/05/18 06/05/18 10-325] Previous Rx's Medication Instructions Recorded Cyclobenzaprine [Flexeril] 10 mg PO BID tab 02/16/18 Pregabalin [Lyrica] 75 mg PO BID cap 02/16/18 Levothyroxine Sodium [Synthroid] 100 mcg PO DAILY@0630 tab 04/11/18 Allergies Allergy/AdvReac Type Severity Reaction Status Date / Time Penicillins Allergy Anaphylaxis Verified 06/05/18 22:18 meropenem AdvReac Itching Verified 06/05/18 22:18 Review of Systems ROS Statement: Those systems with pertinent positive or pertinent negative responses have been documented in the HPI. ROS Other: All systems not noted in ROS Statement are negative. Constitutional: Denies: fever, chills Respiratory: Denies: cough, dyspnea Cardiovascular: Denies: chest pain, palpitations, edema, syncope Musculoskeletal: Reports: as per HPI, arthralgia (Left hindfoot) Skin: Denies: rash Neurological: Denies: weakness, numbness, paresthesias Past Medical History Past Medical History: Asthma, Cancer, COPD, Diabetes Mellitus, Eye Disorder, Hyperlipidemia, Liver Disease, Musculoskeletal Disorder, Neurologic Disorder, Osteoarthritis (OA), Sleep Apnea/CPAP/BIPAP, Thyroid Disorder Additional Past Medical History / Comment(s): History of osteomyelitis left #3 toe and left calf: 2004. cervical cancer (in remission.) Wound vac. Cirrhosis of the liver r/t diabetes - sees Dr. Barraza History of Any Multi-Drug Resistant Organisms: MRSA Date of last positivie culture/infection: 03/20/17 MDRO Source:: MRSA HEEL Past Surgical History: Section, Cholecystectomy, Hysterectomy, Orthopedic Surgery, Tonsillectomy, Tubal Ligation Additional Past Surgical History / Comment(s): Cataracts and laser surgery for glaucoma. Multiple I&D to left foot and lower leg. Past Anesthesia/Blood Transfusion Reactions: No Reported Reaction Past Psychological History: Anxiety, Bipolar, Depression Smoking Status: Former smoker Past Alcohol Use History: None Reported Past Drug Use History: Marijuana - Past Family History Father Family Medical History: Congestive Heart Failure (CHF), Coronary Artery Disease (CAD), Myocardial Infarction ([place]) Mother Family Medical History: Coronary Artery Disease (CAD), CVA/TIA, Dementia, Myocardial Infarction ([place]) General Exam Limitations: no limitations General appearance: alert, in no apparent distress, obese Respiratory exam: Present: normal lung sounds bilaterally. Absent: respiratory distress, wheezes, rales, rhonchi, stridor Cardiovascular Exam: Present: regular rate, normal rhythm, normal heart sounds. Absent: systolic murmur, diastolic murmur, rubs, gallop Extremities exam: Present: full ROM, tenderness, normal capillary refill, pedal edema, calf tenderness, other (Left foot has previous toe amputation. There is a strong dorsalis pedis pulse. There is no evident infection. There is mild tenderness along the lateral aspect of the hind foot but no other physical finding.) Neurological exam: Present: alert. Absent: motor sensory deficit Skin exam: Present: warm, dry, intact, normal color. Absent: rash Course Vital Signs 06/05/18 06/06/18 21:41 02:15 Temperature 98.3 F Pulse Rate 85 77 Respiratory 16 16 Rate Blood Pressure 130/51 138/71 O2 Sat by Pulse 98 Oximetry Medical Decision Making - Medical Decision Making This patient is a 62-year-old woman with left foot pain. Given her history of diabetes there is concern about possibility of infection however her exam at this point looks good. There is adequate arterial blood flow. Skin is intact without changes suggestive of infection. Patient does have follow-up appointmen t with her foot doctor on the following day and we will have her keep that appointment. She had good relief of symptoms here. Return parameters discussed - Lab Data Result diagrams: 06/05/18 22:50 06/05/18 22:50 Lab Results 06/05/18 06/05/18 06/06/18 Range/Units 22:50 22:50 00:45 WBC 6.9 (3.8-10.6) k/uL RBC 4.54 (3.80-5.40) m/uL Hgb 12.9 (11.4-16.0) gm/dL Hct 39.2 (34.0-46.0) % MCV 86.2 (80.0-100.0) fL MCH 28.3 (25.0-35.0) pg MCHC 32.8 (31.0-37.0) g/dL RDW 17.0 H (11.5-15.5) % Plt Count 74 L (150-450) k/uL Neutrophils % 67 % Lymphocytes % 23 % Monocytes % 5 % Eosinophils % 4 % Basophils % 0 % Neutrophils # 4.6 (1.3-7.7) k/uL Lymphocytes # 1.6 (1.0-4.8) k/uL Monocytes # 0.4 (0-1.0) k/uL Eosinophils # 0.2 (0-0.7) k/uL Basophils # 0.0 (0-0.2) k/uL Manual Slide Review Performed Hypochromasia Slight Poikilocytosis Slight Anisocytosis Slight Sodium 137 (137-145) mmol/L Potassium 4.0 (3.5-5.1) mmol/L Chloride 101 (98-107) mmol/L Carbon Dioxide 28 (22-30) mmol/L Anion Gap 8 mmol/L BUN 24 H (7-17) mg/dL Creatinine 0.85 (0.52-1.04) mg/dL Est GFR (CKD-EPI)AfAm 86 (>60 ml/min/1.73 sqM) Est GFR (CKD-EPI)NonAf 75 (>60 ml/min/1.73 sqM) Glucose 427 H (74-99) mg/dL POC Glucose (mg/dL) 409 H (75-99) mg/dL POC Glu Home Health Care Physician ID Radha CamposMitchell Calcium 8.9 (8.4-10.2) mg/dL C-Reactive Protein 18.5 H (<10.0) mg/L 06/06/18 Range/Units 01:51 WBC (3.8-10.6) k/uL RBC (3.80-5.40) m/uL Hgb (11.4-16.0) gm/dL Hct (34.0-46.0) % MCV (80.0-100.0) fL MCH (25.0-35.0) pg MCHC (31.0-37.0) g/dL RDW (11.5-15.5) % Plt Count (150-450) k/uL Neutrophils % % Lymphocytes % % Monocytes % % Eosinophils % % Basophils % % Neutrophils # (1.3-7.7) k/uL Lymphocytes # (1.0-4.8) k/uL Monocytes # (0-1.0) k/uL Eosinophils # (0-0.7) k/uL Basophils # (0-0.2) k/uL Manual Slide Review Hypochromasia Poikilocytosis Anisocytosis Sodium (137-145) mmol/L Potassium (3.5-5.1) mmol/L Chloride (98-107) mmol/L Carbon Dioxide (22-30) mmol/L Anion Gap mmol/L BUN (7-17) mg/dL Creatinine (0.52-1.04) mg/dL Est GFR (CKD-EPI)AfAm (>60 ml/min/1.73 sqM) Est GFR (CKD-EPI)NonAf (>60 ml/min/1.73 sqM) Glucose (74-99) mg/dL POC Glucose (mg/dL) 407 H (75-99) mg/dL POC Glu Home Health Care Physician ID Radha Campos A Calcium (8.4-10.2) mg/dL C-Reactive Protein (<10.0) mg/L Disposition Clinical Impression: Foot pain, left, Hyperglycemia Disposition: HOME SELF-CARE Condition: Fair Instructions (If sedation given, give patient instructions): Arthralgia (ED) Is patient prescribed a controlled substance at d/c from ED?: No Referrals: Lilibeth Seymour MD [Primary Care Provider] - 1-2 days
[2018-06-05 23:12] LABS: C Reactive Protein 18.5 mg/L (<10.0); Calcium 8.9 mg/dL (8.4-10.2)
[2018-06-05 23:15] LABS: Anisocytosis Slight; Basophils % (A) 0 %; Eosinophils # (A) 0.2 k/uL (0-0.7); Eosinophils % (A) 4 %; HCT 39.2 % (34.0-46.0); HGB 12.9 gm/dL (11.4-16.0); Hypochromasia Slight; Lymphocytes # (A) 1.6 k/uL (1.0-4.8); Lymphocytes % (A) 23 %; MCH 28.3 pg (25.0-35.0); MCHC 32.8 g/dL (31.0-37.0); MCV 86.2 fL (80.0-100.0); Mean Platelet Volume 8.9; Monocytes # (A) 0.4 k/uL (0-1.0); Monocytes % (A) 5 %; Neutrophils # (A) 4.6 k/uL (1.3-7.7); Neutrophils % (A) 67 %; Poikilocytosis Slight; RBC 4.54 m/uL (3.80-5.40); WBC 6.9 k/uL (3.8-10.6)
[2018-06-05 23:31] LABS: Platelet Count 74 k/uL (150-450)
--- NOTE | 2018-06-05 23:43 | XR ---
EXAM: XR Left Foot Complete, 3 or More Views CLINICAL HISTORY: ITS.REASON XR Reason: Pain TECHNIQUE: Frontal, lateral and oblique views of the left foot. COMPARISON: Left foot radiographs 07/08/2017. FINDINGS: Bones/joints: Postsurgical change related to amputation of the third phalanx and distal metatarsal. Overall appearance is unchanged compared to prior examination. Os peroneum. Os navicular versus prior avulsion fracture of the navicular appears unchanged. Mild degenerative change in the first metatarsophalangeal and interphalangeal joints. Achilles tendon and plantar fascial enthesophytes. No dislocation. Soft tissues: Unremarkable. No radiopaque foreign body. IMPRESSION: 1. Postsurgical change related to amputation of the third phalanx and distal metatarsal. Overall appearance is unchanged compared to prior examination. 2. Chronic findings as described.
--- NOTE | 2018-06-06 00:24 | US ---
EXAM: US Duplex Left Lower Extremity Veins CLINICAL HISTORY: ITS.REASON US Reason: Pain TECHNIQUE: Real-time duplex ultrasound scan of the left lower extremity veins integrating B-mode two-dimensional vascular structure, Doppler spectral analysis, color flow Doppler imaging and compression. COMPARISON: None. FINDINGS: Deep veins: Unremarkable. No DVT in the visualized common femoral, femoral, proximal deep femoral or popliteal veins. The veins demonstrate normal color flow, are normally compressible, with normal phasic flow and/or augmentation response. Superficial veins: Unremarkable. No thrombus in the visualized great saphenous vein. Soft tissues: No acute findings. No popliteal cyst. IMPRESSION: No evidence of deep vein thrombosis in the left lower extremity.
[2018-06-06] MEDS ORDERED: SODIUM CHLORIDE 0.9% 1,000 ML IV ONE (00:29)
[2018-06-06] MEDS ORDERED: INSULIN REGULAR 100 UNIT/ML VIAL SQ STA (00:29)
[2018-06-06] MEDS ORDERED: HYDROcodone/APAP 5-325MG 1 EACH TAB PO STA (00:30)
[2018-06-06 00:56] LABS: Glucose,Whole Blood 409 mg/dL (75-99)
[2018-06-06 02:18] LABS: Glucose,Whole Blood 407 mg/dL (75-99)
[2018-06-06 02:20] VITALS: BP 138/71; PULSE 77
== END 2018-06-06 02:15 | disposition home or self-care (01) ==
LOC: EC 21:31
DX: M79.672 Pain in left foot (principal); E11.65 Type 2 diabetes mellitus with hyperglycemia; E11.40 Type 2 diabetes mellitus with diabetic neuropathy, unspecified; E78.5 Hyperlipidemia, unspecified; G47.30 Sleep apnea, unspecified; F41.9 Anxiety disorder, unspecified; F31.9 Bipolar disorder, unspecified; Z79.82 Long term (current) use of aspirin; Z79.4 Long term (current) use of insulin; Z79.899 Other long term (current) drug therapy; Z88.0 Allergy status to penicillin; Z88.8 Allergy status to other drugs, medicaments and biological substances; Z87.891 Personal history of nicotine dependence; Z85.41 Personal history of malignant neoplasm of cervix uteri
CPT/HCPCS: 36415; 80048; 85025; 86140; 96360; 99284

== ENCOUNTER 2018-07-04 17:25 | Emergency (ER) | payer OTHER ==
[2018-07-04] MEDS ORDERED: IPRATROPIUM-ALBUTEROL 3 ML NEB INHALATION STA (17:48)
[2018-07-04] MEDS ORDERED: methylPREDNISolone SOD SUCCI 125 MG/2 ML VIAL IM ONE (17:48)
--- NOTE | 2018-07-04 18:43 | XR ---
EXAMINATION: XR chest 2V DATE AND TIME: 07/04/2018 6:38 PM CLINICAL INDICATION: PHH; Pain TECHNIQUE: Departmental protocol COMPARISON: None FINDINGS: There is no evidence of radiopaque foreign body. The overlying soft tissues are prominent. Lungs are clear. The pleural spaces are negative. The cardiac silhouette is not enlarged. The remainder of the mediastinal silhouette is unremarkable. The skeletal structures and soft tissues are negative for acute findings. IMPRESSION: NO DEFINITE ACUTE PROCESS.
--- NOTE | 2018-07-04 19:25 | ED ---
General Adult HPI - General Chief complaint: Recheck/Abnormal Lab/Rx Stated complaint: Coughing after choking incident Time Seen by Provider: 07/04/18 17:44 Source: patient, RN notes reviewed Mode of arrival: wheelchair Limitations: no limitations - History of Present Illness Initial comments: 62-year-old female with a past medical history of asthma, COPD, diabetes, hyperlipidemia presents to the emergency department for a chief complaint of cough 2 days. Patient has had a cough without fever. Cough is not productive. Patient states today she was eating food when she is coughing so hard it almost made her choke. However patient did not choke on her food. patient adamantly denies any chest pain or shortness of breath. Patient has no other complaints at this time including shortness of breath, chest pain, abdominal pain, nausea or vomiting, headache, or visual changes. - Related Data Home Medications Medication Instructions Recorded Confirmed metFORMIN HCL [Glucophage] 850 mg PO BID 02/18/14 07/04/18 Aspirin EC [Ecotrin Low Dose] 81 mg PO DAILY 04/08/18 07/04/18 Cetirizine HCl [Zyrtec] 10 mg PO DAILY 04/08/18 07/04/18 Insulin Glargine,Hum.rec.anlog 80 unit SQ HS 04/08/18 07/04/18 [Basaglar Kwikpen U-100] Insulin Glargine,Hum.rec.anlog 100 unit SQ QAM 04/08/18 07/04/18 [Basaglar Kwikpen U-100] Latanoprost [Xalatan 0.005%] 1 drop BOTH EYES HS 04/08/18 07/04/18 Simvastatin [Zocor] 40 mg PO HS 04/08/18 07/04/18 Triamterene/Hydrochlorothiazid 1 tab PO BID@1000,1400 04/08/18 07/04/18 [Maxzide 37.5-25] Venlafaxine HCl ER [Effexor XR] 150 mg PO DAILY 04/08/18 07/04/18 HYDROcodone/APAP 10-325MG [[place] 1 tab PO Q8H PRN 06/05/18 07/04/18 10-325] Insulin Detemir (Levemir) [Levemir] 35 unit SQ TID-W/MEALS 07/04/18 07/04/18 Nystatin 100,000 Unit/gm Powd 1 applic TOPICAL BID 07/04/18 07/04/18 [Mycostatin Powder] Previous Rx's Medication Instructions Recorded Cyclobenzaprine [Flexeril] 10 mg PO BID tab 02/16/18 Pregabalin [Lyrica] 75 mg PO BID cap 02/16/18 Levothyroxine Sodium [Synthroid] 100 mcg PO DAILY@0630 tab 04/11/18 Oseltamivir [Tamiflu] 75 mg PO Q12HR #10 cap 07/04/18 predniSONE 50 mg PO DAILY #5 tablet 07/04/18 Allergies Allergy/AdvReac Type Severity Reaction Status Date / Time meropenem Allergy Itching Verified 07/04/18 17:58 Penicillins Allergy Anaphylaxis Verified 07/04/18 17:58 Review of Systems ROS Statement: Those systems with pertinent positive or pertinent negative responses have been documented in the HPI. ROS Other: All systems not noted in ROS Statement are negative. Past Medical History Past Medical History: Asthma, Cancer, COPD, Diabetes Mellitus, Eye Disorder, Hyperlipidemia, Liver Disease, Musculoskeletal Disorder, Neurologic Disorder, Osteoarthritis (OA), Sleep Apnea/CPAP/BIPAP, Thyroid Disorder Additional Past Medical History / Comment(s): History of osteomyelitis left #3 toe and left calf: 2004. cervical cancer (in remission.) Wound vac. Cirrhosis of the liver r/t diabetes - sees Dr. Barraza History of Any Multi-Drug Resistant Organisms: MRSA Date of last positivie culture/infection: 03/20/17 MDRO Source:: MRSA HEEL Past Surgical History: Section, Cholecystectomy, Hysterectomy, Orthopedic Surgery, Tonsillectomy, Tubal Ligation Additional Past Surgical History / Comment(s): Cataracts and laser surgery for glaucoma. Multiple I&D to left foot and lower leg. Past Anesthesia/Blood Transfusion Reactions: No Reported Reaction Past Psychological History: Anxiety, Bipolar, Depression Smoking Status: Former smoker Past Alcohol Use History: None Reported Past Drug Use History: Marijuana - Past Family History Father Family Medical History: Congestive Heart Failure (CHF), Coronary Artery Disease (CAD), Myocardial Infarction ([place]) Mother Family Medical History: Coronary Artery Disease (CAD), CVA/TIA, Dementia, Myocardial Infarction ([place]) General Exam Limitations: no limitations General appearance: alert, in no apparent distress Head exam: Present: atraumatic, normocephalic, normal inspection Eye exam: Present: normal appearance, PERRL, EOMI. Absent: scleral icterus, conjunctival injection, periorbital swelling ENT exam: Present: normal exam, normal oropharynx, mucous membranes moist, TM's normal bilaterally, normal external ear exam Neck exam: Present: normal inspection, full ROM. Absent: tenderness, meningismus, lymphadenopathy Respiratory exam: Present: decreased breath sounds (Lungs sounds minimally diminished). Absent: respiratory distress, wheezes (No significant wheezing noted on exam), rales, rhonchi, stridor Cardiovascular Exam: Present: regular rate, normal rhythm, normal heart sounds. Absent: systolic murmur, diastolic murmur, rubs, gallop, clicks GI/Abdominal exam: Present: soft, normal bowel sounds. Absent: distended, tenderness, guarding, rebound, rigid Neurological exam: Present: alert, oriented X3, CN II-XII intact Psychiatric exam: Present: normal affect, normal mood Course Vital Signs 07/04/18 07/04/18 07/04/18 17:39 18:15 18:22 Temperature 98.1 F Pulse Rate 83 88 88 Respiratory 18 Rate Blood Pressure 129/58 O2 Sat by Pulse 99 Oximetry Medical Decision Making - Medical Decision Making 62-year-old female presents to the emergency department for a chief complaint of cough 2 days. Cough is nonproductive. Patient does have a history of COPD and asthma. Exam is unremarkable, lungs are minimally diminished however no significant wheezing noted. No chest pain. X-ray shows no definitive acute process. Influenza A is positive. Patient will be treated with Tamiflu. Patient will also be given steroid due to history of asthma and COPD. She will follow up with primary care in 1-2 days. She will return here if she has any worsening symptoms. Vitals are stable with a pulse rate of 83, blood pressure 129/58, 99% on room air. - Lab Data Lab Results 07/04/18 Range/Units 18:12 Influenza Type A RNA Detected H (Not Detectd) Influenza Type B (PCR) Not Detected (Not Detectd) Disposition Clinical Impression: Influenza A Disposition: HOME SELF-CARE Condition: Good Instructions (If sedation given, give patient instructions): Influenza (ED) Additional Instructions: Please take Tamiflu and steroid as directed. Follow up with primary care in 1-2 days. Return here if you have worsening symptoms. Prescriptions: predniSONE 50 mg PO DAILY #5 tablet Oseltamivir [Tamiflu] 75 mg PO Q12HR #10 cap Is patient prescribed a controlled substance at d/c from ED?: No Referrals: Lilibeth Seymour MD [Primary Care Provider] - 1-2 days Time of Disposition: 19:22
[2018-07-04 19:43] VITALS: BP 133/59; PULSE 82; RESP 16; TEMP 98.6
== END 2018-07-04 19:45 | disposition home or self-care (01) ==
LOC: EC 17:25
DX: J10.1 Influenza due to other identified influenza virus with other respiratory manifestations (principal); E11.9 Type 2 diabetes mellitus without complications; E78.5 Hyperlipidemia, unspecified; M19.90 Unspecified osteoarthritis, unspecified site; E07.9 Disorder of thyroid, unspecified; G47.30 Sleep apnea, unspecified; Z99.89 Dependence on other enabling machines and devices; F31.9 Bipolar disorder, unspecified; F41.9 Anxiety disorder, unspecified; Z86.14 Personal history of Methicillin resistant Staphylococcus aureus infection; Z87.891 Personal history of nicotine dependence; Z85.41 Personal history of malignant neoplasm of cervix uteri; Z79.4 Long term (current) use of insulin; Z79.82 Long term (current) use of aspirin; Z79.899 Other long term (current) drug therapy; Z88.0 Allergy status to penicillin; Z88.8 Allergy status to other drugs, medicaments and biological substances
CPT/HCPCS: 94640; 87502; 71046; 99284; 96372; J2930

== ENCOUNTER 2018-07-09 17:01 | Emergency (ER) | payer OTHER ==
[2018-07-09 17:22] VITALS: BP 166/65; PULSE 82; RESP 18; TEMP 98.7
--- NOTE | 2018-07-09 18:01 | XR ---
PROCEDURE: XR foot complete RT - 3V DATE AND TIME: 07/09/2018 5:39 PM CLINICAL INDICATION: PHH; possible FB TECHNIQUE: Department protocol COMPARISON: 02/14/1980 FINDINGS: There is no fracture or malalignment. The soft tissues are unremarkable. No soft tissue emphysema. No radiopaque foreign body. IMPRESSION: NO ACUTE RADIOGRAPHIC PROCESS.
--- NOTE | 2018-07-09 18:11 | ED ---
General Adult HPI - General Chief complaint: Skin/Abscess/Foreign Body Stated complaint: poss glass in foot Time Seen by Provider: 07/09/18 17:24 Source: patient, RN notes reviewed Mode of arrival: wheelchair Limitations: no limitations - History of Present Illness Initial comments: 62-year-old female with significant past medical history presents to the emergency department for a chief complaint of possible glass in her right heel. Patient states that she has significant neuropathy and does not have any feeling in her right heel. Patient states she has had an ulcer in her heel for several months that is now almost healed. She states that her son shattered his phone and she may have stepped on the glass but is unsure if she does not have feel ing. States her son was looking with did not see any glass.Patient has no other complaints at this time including shortness of breath, chest pain, abdominal pain, nausea or vomiting, headache, or visual changes. - Related Data Home Medications Medication Instructions Recorded Confirmed metFORMIN HCL [Glucophage] 850 mg PO BID 02/18/14 07/04/18 Aspirin EC [Ecotrin Low Dose] 81 mg PO DAILY 04/08/18 07/04/18 Cetirizine HCl [Zyrtec] 10 mg PO DAILY 04/08/18 07/04/18 Insulin Glargine,Hum.rec.anlog 80 unit SQ HS 04/08/18 07/04/18 [Basaglar Kwikpen U-100] Insulin Glargine,Hum.rec.anlog 100 unit SQ QAM 04/08/18 07/04/18 [Basaglar Kwikpen U-100] Latanoprost [Xalatan 0.005%] 1 drop BOTH EYES HS 04/08/18 07/04/18 Simvastatin [Zocor] 40 mg PO HS 04/08/18 07/04/18 Triamterene/Hydrochlorothiazid 1 tab PO BID@1000,1400 04/08/18 07/04/18 [Maxzide 37.5-25] Venlafaxine HCl ER [Effexor XR] 150 mg PO DAILY 04/08/18 07/04/18 HYDROcodone/APAP 10-325MG [[place] 1 tab PO Q8H PRN 06/05/18 07/04/18 10-325] Insulin Detemir (Levemir) [Levemir] 35 unit SQ TID-W/MEALS 07/04/18 07/04/18 Nystatin 100,000 Unit/gm Powd 1 applic TOPICAL BID 07/04/18 07/04/18 [Mycostatin Powder] Previous Rx's Medication Instructions Recorded Cyclobenzaprine [Flexeril] 10 mg PO BID tab 02/16/18 Pregabalin [Lyrica] 75 mg PO BID cap 02/16/18 Levothyroxine Sodium [Synthroid] 100 mcg PO DAILY@0630 tab 04/11/18 Oseltamivir [Tamiflu] 75 mg PO Q12HR #10 cap 07/04/18 predniSONE 50 mg PO DAILY #5 tablet 07/04/18 Allergies Allergy/AdvReac Type Severity Reaction Status Date / Time meropenem Allergy Itching Verified 07/09/18 17:22 Penicillins Allergy Anaphylaxis Verified 07/09/18 17:22 Review of Systems ROS Statement: Those systems with pertinent positive or pertinent negative responses have been documented in the HPI. ROS Other: All systems not noted in ROS Statement are negative. Past Medical History Past Medical History: Asthma, Cancer, COPD, Diabetes Mellitus, Eye Disorder, Hyperlipidemia, Liver Disease, Musculoskeletal Disorder, Neurologic Disorder, Osteoarthritis (OA), Sleep Apnea/CPAP/BIPAP, Thyroid Disorder Additional Past Medical History / Comment(s): History of osteomyelitis left #3 toe and left calf: 2004. cervical cancer (in remission.) Wound vac. Cirrhosis of the liver r/t diabetes - sees Dr. Barraza History of Any Multi-Drug Resistant Organisms: MRSA Date of last positivie culture/infection: 03/20/17 MDRO Source:: MRSA HEEL Past Surgical History: Section, Cholecystectomy, Hysterectomy, Orthopedic Surgery, Tonsillectomy, Tubal Ligation Additional Past Surgical History / Comment(s): Cataracts and laser surgery for glaucoma. Multiple I&D to left foot and lower leg. Past Anesthesia/Blood Transfusion Reactions: No Reported Reaction Past Psychological History: Anxiety, Bipolar, Depression Smoking Status: Former smoker Past Alcohol Use History: None Reported Past Drug Use History: Marijuana - Past Family History Father Family Medical History: Congestive Heart Failure (CHF), Coronary Artery Disease (CAD), Myocardial Infarction ([place]) Mother Family Medical History: Coronary Artery Disease (CAD), CVA/TIA, Dementia, Myocardial Infarction ([place]) General Exam Limitations: no limitations General appearance: alert, in no apparent distress Head exam: Present: atraumatic, normocephalic, normal inspection Eye exam: Present: normal appearance, PERRL, EOMI. Absent: scleral icterus, conjunctival injection, periorbital swelling ENT exam: Present: normal exam, mucous membranes moist Neck exam: Present: normal inspection, full ROM. Absent: tenderness, meningismus, lymphadenopathy Respiratory exam: Present: normal lung sounds bilaterally. Absent: respiratory distress, wheezes, rales, rhonchi, stridor Cardiovascular Exam: Present: regular rate, normal rhythm, normal heart sounds. Absent: systolic murmur, diastolic murmur, rubs, gallop, clicks Extremities exam: Present: full ROM (Full range of motion of the right foot ), normal capillary refill (Capillary refill less than 2 seconds, DP pulse 2+ in the right lower extremity.), other (No evidence for glass noted in the foot, no lacerations present.). Absent: tenderness (No tenderness in the right foot or heel however patient does have neuropathy.) Neurological exam: Present: alert, oriented X3, CN II-XII intact Psychiatric exam: Present: normal affect, normal mood Course Vital Signs 07/09/18 17:20 Temperature 98.7 F Pulse Rate 82 Respiratory 18 Rate Blood Pressure 166/65 O2 Sat by Pulse 98 Oximetry Medical Decision Making - Medical Decision Making 62-year-old female with diabetic neuropathy presents for possible glass in right heel. Patient states she cannot feel anything for her son shattered his cell phone screen and she is concerned there may be glass in her heel. On exam I do not see any lacerations or evidence of foreign body. X-ray was obtained which showed no acute radiographic process. No soft tissue emphysema. No radiopaque foreign body. At this time patient will follow up with primary care and return here if you've any worsening symptoms. Disposition Clinical Impression: Encounter for wound re-check Disposition: HOME SELF-CARE Condition: Good Instructions (If sedation given, give patient instructions): Soft Tissue Foreign Body (ED) Additional Instructions: Please monitor for any evidence of infection or glass. If you notice this return here to the emergency department. Otherwise follow-up with primary care in 1-2 days. Is patient prescribed a controlled substance at d/c from ED?: No Referrals: Lilibeth Seymour MD [Primary Care Provider] - 1-2 days Time of Disposition: 18:10
== END 2018-07-09 18:19 | disposition home or self-care (01) ==
LOC: EC 17:01
DX: Z48.817 Encounter for surgical aftercare following surgery on the skin and subcutaneous tissue (principal); E11.40 Type 2 diabetes mellitus with diabetic neuropathy, unspecified; E78.5 Hyperlipidemia, unspecified; M19.90 Unspecified osteoarthritis, unspecified site; G47.30 Sleep apnea, unspecified; F31.9 Bipolar disorder, unspecified; F41.9 Anxiety disorder, unspecified; Z87.891 Personal history of nicotine dependence; Z88.0 Allergy status to penicillin; Z88.1 Allergy status to other antibiotic agents; Z79.4 Long term (current) use of insulin; Z79.82 Long term (current) use of aspirin; Z79.899 Other long term (current) drug therapy; Z87.2 Personal history of diseases of the skin and subcutaneous tissue; Z85.41 Personal history of malignant neoplasm of cervix uteri; Z90.710 Acquired absence of both cervix and uterus; Z86.14 Personal history of Methicillin resistant Staphylococcus aureus infection
CPT/HCPCS: 99283

== ENCOUNTER 2018-08-18 00:48 | Emergency (ER) | payer OTHER ==
[2018-08-18 01:11] VITALS: TEMP 98.7
[2018-08-18 01:33] VITALS: PULSE 77
[2018-08-18] MEDS ORDERED: CLINDAMYCIN 150 MG CAP PO STA (02:05)
[2018-08-18 02:17] VITALS: BP 130/73; RESP 18
--- NOTE | 2018-08-18 02:31 | XR ---
EXAM: XR Left Foot Complete, 3 or More Views CLINICAL HISTORY: Pain TECHNIQUE: Frontal, lateral and oblique views of the left foot. COMPARISON: 06/05/18 FINDINGS: No acute fracture. No dislocation. No change in the appearance of the third metatarsal amputation. No change in alignment of foot. No evidence for radiopaque foreign body. No evidence for gas in soft tissue IMPRESSION: No acute abnormality or change compared to prior study
--- NOTE | 2018-08-18 02:40 | ED ---
Lower Extremity Injury HPI - General Chief Complaint: Extremity Injury, Lower Stated Complaint: Lt toe injury Time Seen by Provider: 08/18/18 01:36 Source: patient Mode of arrival: wheelchair Limitations: no limitations - History of Present Illness Initial Comments: 62-year-old female patient presents to the emergency department today for evaluation of wound and injury to the left fourth toe. Patient states injury occurred approximately half an hour prior to arrival. Patient states she was moving her bed and did not realize she injured the toe. She does have a history of neuropathy and decreased sensation to the feet. Patient states she does have history of diabetes and was concerned for infection so she presented here for further evaluation. She denies any other injuries or concerns. Patient denies any headache, neck pain, back pain, chest pain, shortness of breath, dizziness, weakness, abdominal pain, nausea, vomiting, or difficulties with bowel movements or urination. - Related Data Home Medications Medication Instructions Recorded Confirmed metFORMIN HCL [Glucophage] 850 mg PO BID 02/18/14 07/09/18 Aspirin EC [Ecotrin Low Dose] 81 mg PO DAILY 04/08/18 07/09/18 Cetirizine HCl [Zyrtec] 10 mg PO DAILY 04/08/18 07/09/18 Insulin Glargine,Hum.rec.anlog 80 unit SQ HS 04/08/18 07/09/18 [Basaglar Kwikpen U-100] Insulin Glargine,Hum.rec.anlog 100 unit SQ QAM 04/08/18 07/09/18 [Basaglar Kwikpen U-100] Latanoprost [Xalatan 0.005%] 1 drop BOTH EYES HS 04/08/18 07/09/18 Simvastatin [Zocor] 40 mg PO HS 04/08/18 07/09/18 Triamterene/Hydrochlorothiazid 1 tab PO BID@1000,1400 04/08/18 07/09/18 [Maxzide 37.5-25] Venlafaxine HCl ER [Effexor XR] 150 mg PO DAILY 04/08/18 07/09/18 HYDROcodone/APAP 10-325MG [[place] 1 tab PO Q8H PRN 06/05/18 07/09/18 10-325] Insulin Detemir (Levemir) [Levemir] 35 unit SQ TID-W/MEALS 07/04/18 07/09/18 Nystatin 100,000 Unit/gm Powd 1 applic TOPICAL BID 07/04/18 07/09/18 [Mycostatin Powder] Previous Rx's Medication Instructions Recorded Cyclobenzaprine [Flexeril] 10 mg PO BID tab 02/16/18 Pregabalin [Lyrica] 75 mg PO BID cap 02/16/18 Levothyroxine Sodium [Synthroid] 100 mcg PO DAILY@0630 tab 04/11/18 predniSONE 50 mg PO DAILY #5 tablet 07/04/18 Clindamycin HCl 300 mg PO Q6H #28 cap 08/18/18 Allergies Allergy/AdvReac Type Severity Reaction Status Date / Time meropenem Allergy Itching Verified 07/09/18 17:22 Penicillins Allergy Anaphylaxis Verified 07/09/18 17:22 Review of Systems ROS Statement: Those systems with pertinent positive or pertinent negative responses have been documented in the HPI. ROS Other: All systems not noted in ROS Statement are negative. Past Medical History Past Medical History: Asthma, Cancer, COPD, Diabetes Mellitus, Eye Disorder, Hyperlipidemia, Liver Disease, Musculoskeletal Disorder, Neurologic Disorder, Osteoarthritis (OA), Sleep Apnea/CPAP/BIPAP, Thyroid Disorder Additional Past Medical History / Comment(s): History of osteomyelitis left #3 toe and left calf: 2004. cervical cancer (in remission.) Wound vac. Cirrhosis of the liver r/t diabetes - sees Dr. Barraza History of Any Multi-Drug Resistant Organisms: MRSA Date of last positivie culture/infection: 03/20/17 MDRO Source:: MRSA HEEL Past Surgical History: Section, Cholecystectomy, Hysterectomy, Orthopedic Surgery, Tonsillectomy, Tubal Ligation Additional Past Surgical History / Comment(s): Cataracts and laser surgery for glaucoma. Multiple I&D to left foot and lower leg. Past Anesthesia/Blood Transfusion Reactions: No Reported Reaction Past Psychological History: Anxiety, Bipolar, Depression Smoking Status: Former smoker Past Alcohol Use History: None Reported Past Drug Use History: Marijuana - Past Family History Father Family Medical History: Congestive Heart Failure (CHF), Coronary Artery Disease (CAD), Myocardial Infarction ([place]) Mother Family Medical History: Coronary Artery Disease (CAD), CVA/TIA, Dementia, Myocardial Infarction ([place]) General Exam Limitations: no limitations General appearance: alert, in no apparent distress, other (Physical well- developed, well-nourished adult female patient in no acute distress. Vital signs upon presentation are temperature 98.7F, pulse 97, respirations 18, blood pressure 151/78, pulse ox 100% on room air.) Eye exam: Present: normal appearance, PERRL, EOMI. Absent: scleral icterus, conjunctival injection, periorbital swelling ENT exam: Present: normal exam, normal oropharynx, mucous membranes moist Respiratory exam: Present: normal lung sounds bilaterally. Absent: respiratory distress, wheezes, rales, rhonchi, stridor Cardiovascular Exam: Present: regular rate, normal rhythm, normal heart sounds. Absent: systolic murmur, diastolic murmur, rubs, gallop, clicks Extremities exam: Present: full ROM, normal capillary refill, other (There is an abrasion noted to the dorsal surface of the left fourth toe. There is no soft tissue swelling. Skin is otherwise pink, warm, dry. Cap refills less than 3 s econds. Pedal pulses 2+ and equal bilaterally.). Absent: normal inspection, tenderness, pedal edema, joint swelling, calf tenderness Neurological exam: Present: alert, oriented X3, CN II-XII intact Psychiatric exam: Present: normal affect, normal mood Skin exam: Present: warm, dry, intact, normal color. Absent: rash Course Vital Signs 08/18/18 08/18/18 08/18/18 01:06 01:31 02:15 Temperature 98.7 F Pulse Rate 97 77 77 Respiratory 18 16 18 Rate Blood Pressure 151/78 125/49 130/73 O2 Sat by Pulse 100 100 98 Oximetry Medical Decision Making - Medical Decision Making 62-year-old female patient presents to the emergency department today for evaluation of injury to the left fourth toe. Physical examination did reveal abrasion to the dorsal surface. No active bleeding. X-ray was obtained and showed no acute fractures. Patient will be discharged with instructions to perform good wound care. She was started on clindamycin for prevention of infection given history of diabetes and amputation. She is instructed to follow-up with her primary care physician for recheck in 1-2 days. Return parameters were discussed in detail. She verbalizes understanding and agrees with this plan. Disposition Clinical Impression: Abrasion of fourth toe, left Disposition: HOME SELF-CARE Condition: Good Instructions (If sedation given, give patient instructions): Abrasion (ED) Additional Instructions: Keep wound clean and dry. Cleanse twice daily with warm water and antibacterial soap. Keep dressing clean and dry. Complete antibiotic prescription in full. Follow-up with your primary care physician for recheck of the wound in 1-2 days. Return to the emergency department immediately for any new, worsening, or concerning symptoms. Prescriptions: Clindamycin HCl 300 mg PO Q6H #28 cap Is patient prescribed a controlled substance at d/c from ED?: No Referrals: Lilibeth Seymour MD [Primary Care Provider] - 1-2 days Time of Disposition: 02:40
== END 2018-08-18 03:06 | disposition home or self-care (01) ==
LOC: EC 00:48
DX: S90.415A Abrasion, left lesser toe(s), initial encounter (principal); E11.40 Type 2 diabetes mellitus with diabetic neuropathy, unspecified; E78.5 Hyperlipidemia, unspecified; F31.9 Bipolar disorder, unspecified; F41.9 Anxiety disorder, unspecified; G47.30 Sleep apnea, unspecified; Z79.82 Long term (current) use of aspirin; Z79.4 Long term (current) use of insulin; Z79.899 Other long term (current) drug therapy; Z88.0 Allergy status to penicillin; Z88.1 Allergy status to other antibiotic agents; Z85.41 Personal history of malignant neoplasm of cervix uteri; Z87.891 Personal history of nicotine dependence; W23.0XXA Caught, crushed, jammed, or pinched between moving objects, initial encounter
CPT/HCPCS: 99283

== ENCOUNTER → 2018-09-24 | Outpatient (CLI) | payer OTHER ==
[2018-09-24 13:14] LABS: Basophils % (A) 1 %; Eosinophils # (A) 0.3 k/uL (0-0.7); Eosinophils % (A) 5 %; HCT 39.8 % (34.0-46.0); HGB 12.8 gm/dL (11.4-16.0); Hypochromasia Moderate; Lymphocytes # (A) 1.1 k/uL (1.0-4.8); Lymphocytes % (A) 20 %; MCH 27.7 pg (25.0-35.0); MCHC 32.2 g/dL (31.0-37.0); MCV 86.1 fL (80.0-100.0); Mean Platelet Volume 8.8; Monocytes # (A) 0.3 k/uL (0-1.0); Monocytes % (A) 5 %; Neutrophils # (A) 3.9 k/uL (1.3-7.7); Neutrophils % (A) 68 %; Poikilocytosis Slight; RBC 4.62 m/uL (3.80-5.40); RDW 15.8 % (11.5-15.5); WBC 5.7 k/uL (3.8-10.6)
[2018-09-24 13:17] LABS: Platelet Count 72 k/uL (150-450)
[2018-09-24 21:24] LABS: African American GFR (CKD) 80.5 (60.0-200.0); Albumin 3.9 g/dL (3.80-4.90); Albumin/Globulin Ratio 1.39 (1.60-3.17); Anion Gap 15.9 mmol/L (4.00-12.00); BUN/Creat Ratio 15.56 Ratio (12.00-20.00); Carbon Dioxide 21.1 mmol/L (21.6-31.8); Globulin 2.8 g/dL (1.6-3.3); Potassium 4.1 mmol/L (3.5-5.5); Total Bilirubin 0.4 mg/dL (0.3-1.2); Total Protein 6.7 g/dL (6.2-8.2)
[2018-09-24 22:35] LABS: Hemoglobin A1C 9.6 % (4.0-6.0)
== END | disposition home or self-care (01) ==
LOC: LABWHC1 11:39
PROVIDERS: ATTEND Nurse Practitioner Family
DX: L97.102 Non-pressure chronic ulcer of unspecified thigh with fat layer exposed (principal); E08.621 Diabetes mellitus due to underlying condition with foot ulcer
CPT/HCPCS: 36415; 80053; 83036; 84134; 85025

== ENCOUNTER 2018-09-28 18:40 | Emergency (ER) | payer OTHER ==
[2018-09-28 19:37] VITALS: PULSE 81; RESP 18; TEMP 98.3
[2018-09-28 19:39] VITALS: BP 122/61
[2018-09-28] MEDS ORDERED: SULFAMETH-TMP DS STARTER PACK 2 TAB BTL PO STA (19:48)
--- NOTE | 2018-09-28 19:59 | ED ---
General Adult HPI - General Chief complaint: ENT Stated complaint: Ear infection Time Seen by Provider: 09/28/18 19:37 Source: patient, RN notes reviewed, old records reviewed Mode of arrival: wheelchair Limitations: no limitations - History of Present Illness Initial comments: 62-year-old female patient past history of type 2 diabetes, hypertension, hyper lipidemia COPD presents ED with superficial infection to left earlobe. Patient reports that yesterday she began having pain at the location of her ear piercing, with some redness and swelling today. Patient denies any other complaints. Denies any nausea vomiting diarrhea, fevers or chills, chest pain shortness of breath. Systemic: Pt denies fatigue, fever/chills, rash. Pt denies weakness, night sweats, weight loss. Neuro: Pt denies headache, visual disturbances, syncope or pre-syncope. HEENT: Pt denies ocular discharge or irritation, otalgia, rhinorrhea, pharyngitis or notable lymphadenopathy. Cardiopulmonary: Pt denies chest pain, SOB, heart palpitations, dyspnea on exertion. Abdominal/GI: Pt denies abdominal pain, n/v/d. : Pt denies dysuria, burning w/ urination, frequency/urgency. Denies new onset urinary or bowel incontinence. MSK: Pt denies myalgia, loss of strength or function in extremities. Neuro: Pt denies new onset weakness, paresthesias. - Related Data Home Medications Medication Instructions Recorded Confirmed metFORMIN HCL [Glucophage] 850 mg PO BID 02/18/14 07/09/18 Aspirin EC [Ecotrin Low Dose] 81 mg PO DAILY 04/08/18 07/09/18 Cetirizine HCl [Zyrtec] 10 mg PO DAILY 04/08/18 07/09/18 Insulin Glargine,Hum.rec.anlog 80 unit SQ HS 04/08/18 07/09/18 [Basaglar Kwikpen U-100] Insulin Glargine,Hum.rec.anlog 100 unit SQ QA 04/08/18 07/09/18 [Basaglar Kwikpen U-100] Latanoprost [Xalatan 0.005%] 1 drop BOTH EYES HS 04/08/18 07/09/18 Simvastatin [Zocor] 40 mg PO HS 04/08/18 07/09/18 Triamterene/Hydrochlorothiazid 1 tab PO BID@1000,1400 04/08/18 07/09/18 [Maxzide 37.5-25] Venlafaxine HCl ER [Effexor XR] 150 mg PO DAILY 04/08/18 07/09/18 HYDROcodone/APAP 10-325MG [[place] 1 tab PO Q8H PRN 06/05/18 07/09/18 10-325] Insulin Detemir (Levemir) [Levemir] 35 unit SQ TID-W/MEALS 07/04/18 07/09/18 Nystatin 100,000 Unit/gm Powd 1 applic TOPICAL BID 07/04/18 07/09/18 [Mycostatin Powder] Previous Rx's Medication Instructions Recorded Cyclobenzaprine [Flexeril] 10 mg PO BID tab 02/16/18 Pregabalin [Lyrica] 75 mg PO BID cap 02/16/18 Levothyroxine Sodium [Synthroid] 100 mcg PO DAILY@0630 tab 04/11/18 predniSONE 50 mg PO DAILY #5 tablet 07/04/18 Clindamycin HCl 300 mg PO Q6H #28 cap 08/18/18 Sulfamethox-Tmp 800-160Mg [Bactrim 1 tab PO Q12HR #20 tab 09/28/18 DS 800-160 mg] Allergies Allergy/AdvReac Type Severity Reaction Status Date / Time meropenem Allergy Itching Verified 09/28/18 19:36 Penicillins Allergy Anaphylaxis Verified 09/28/18 19:36 Review of Systems ROS Statement: Those systems with pertinent positive or pertinent negative responses have been documented in the HPI. ROS Other: All systems not noted in ROS Statement are negative. Past Medical History Past Medical History: Asthma, Cancer, COPD, Diabetes Mellitus, Eye Disorder, Hyperlipidemia, Liver Disease, Musculoskeletal Disorder, Neurologic Disorder, Osteoarthritis (OA), Sleep Apnea/CPAP/BIPAP, Thyroid Disorder Additional Past Medical History / Comment(s): History of osteomyelitis left #3 toe and left calf: 2004. cervical cancer (in remission.) Wound vac. Cirrhosis of the liver r/t diabetes - sees Dr. Barraza, History of Any Multi-Drug Resistant Organisms: MRSA Date of last positivie culture/infection: 03/20/17 MDRO Source:: MRSA HEEL Past Surgical History: Section, Cholecystectomy, Hysterectomy, Orthopedic Surgery, Tonsillectomy, Tubal Ligation Additional Past Surgical History / Comment(s): Cataracts and laser surgery for glaucoma. Multiple I&D to left foot and lower leg. Past Anesthesia/Blood Transfusion Reactions: No Reported Reaction Past Psychological History: Anxiety, Bipolar, Depression Smoking Status: Former smoker Past Alcohol Use History: None Reported Past Drug Use History: Marijuana - Past Family History Father Family Medical History: Congestive Heart Failure (CHF), Coronary Artery Disease (CAD), Myocardial Infarction ([place]) Mother Family Medical History: Coronary Artery Disease (CAD), CVA/TIA, Dementia, Myocardial Infarction ([place]) General Exam - General Exam Comments Initial Comments: Constitutional: NAD, AOX3, Pt has pleasant affect. HEENT: NC/AT, trachea midline, neck supple, no lymphadenopathy. Posterior pharynx non erythematous, without exudates. External ears appear normal, without discharge. Mucous membranes moist. Eyes PERRLA, EOM intact. There is no scleral icterus. No pallor noted. Cardiopulmonary: RRR, no murmurs, rubs or gallops, no JVD noted. Lungs CTAB in anterior and posterior denney. No peripheral edema. Abdominal exam: Abdomen soft and non-distended. Abdomen non-tender to palpation in all 4 quadrants. Bowel sounds active in LLQ. No hepatosplenomegaly. No ecchymosis Neuro: CN II-XII grossly intact. No nuchal rigidity. No raccon eyes, no dempsey sign, no hemotympanum. No cervical spinal tenderness. MSK: Left earlobe bilaterally erythematous, mild amount of fluctuance noted at distal aspect, incision and drainage performed obtained small amount of pus. No streaking, no extension of erythema or swelling past earlobe. No posterior calf tenderness bilaterally, homans sign negative bilaterally. Posterior tibialis and radial pulse +2 bilaterally. Sensation intact in upper and lower extremities. Full active ROM in upper and lower extremities, 5/5 stregnth. Limitations: no limitations Course Vital Signs 09/28/18 19:33 Temperature 98.3 F Pulse Rate 81 Respiratory 18 Rate Blood Pressure 122/61 O2 Sat by Pulse 98 Oximetry Procedures - Incision & Drainage Indication: abscess Site: other (L ear lobe) Size (cm): 2 I&D Cleaning Method: Alcohol Wipe Needle Aspiration Performed?: Yes I&D Drainage Obtained: Pus, Blood Patient Tolerated Procedure: well Medical Decision Making - Medical Decision Making 62-year-old female patient past history of type 2 diabetes, hypertension, hyperlipidemia COPD presents ED with superficial infection to left earlobe. Patient reports that yesterday she began having pain at the location of her ear piercing, with some redness and swelling today. Patient denies any other complaints. Denies any nausea vomiting diarrhea, fevers or chills, chest pain shortness of breath. Pt VSS, afebrile. Physical exam displayed: Left earlobe bilaterally erythematous, mild amount of fluctuance noted at distal aspect, incision and drainage performed obtained small amount of pus. No streaking, no extension of erythema or swelling past earlobe. Patient discharged with Bactrim, follow up with primary care provider in next 1-2 days. Return to ER if condition worsens in anyway. Case discussed with Dr. Keller. Disposition Clinical Impression: Superficial skin infection Disposition: HOME SELF-CARE Condition: Stable Instructions (If sedation given, give patient instructions): Cellulitis (ED), Abscess (ED) Additional Instructions: Patient to adhere to previously discussed treatment plan and will take medication(s) as directed. Patient to follow up with PCP in 1-2 days. Patient to return to ED if symptoms do not improve. Take Medication as directed. Follow-up with primary care provider tomorrow. Return to ER condition worsens. Prescriptions: Sulfamethox-Tmp 800-160Mg [Bactrim DS 800-160 mg] 1 tab PO Q12HR #20 tab Is patient prescribed a controlled substance at d/c from ED?: No Referrals: Lilibeth Seymour MD [Primary Care Provider] - 1-2 days
== END 2018-09-28 20:12 | disposition home or self-care (01) ==
LOC: EC 18:40
DX: H60.02 Abscess of left external ear (principal); E11.9 Type 2 diabetes mellitus without complications; E78.5 Hyperlipidemia, unspecified; H40.9 Unspecified glaucoma; F41.9 Anxiety disorder, unspecified; F32.9 Major depressive disorder, single episode, unspecified; G47.30 Sleep apnea, unspecified; Z99.89 Dependence on other enabling machines and devices; Z86.14 Personal history of Methicillin resistant Staphylococcus aureus infection; Z85.41 Personal history of malignant neoplasm of cervix uteri; Z87.891 Personal history of nicotine dependence; Z79.82 Long term (current) use of aspirin; Z79.4 Long term (current) use of insulin; Z79.899 Other long term (current) drug therapy; Z88.1 Allergy status to other antibiotic agents; Z88.0 Allergy status to penicillin
CPT/HCPCS: 69000; 99283

== ENCOUNTER 2018-10-04 21:02 | Emergency (ER) | payer OTHER ==
[2018-10-04 21:22] VITALS: BP 136/60; PULSE 75; RESP 18; TEMP 98.5
--- NOTE | 2018-10-04 22:35 | XR ---
EXAM: XR Right Foot Complete, 3 or More Views CLINICAL HISTORY: ITS.REASON XR Reason: daibetic ulcer (heel region) TECHNIQUE: Frontal, lateral and oblique views of the right foot. COMPARISON: Right foot radiographs 07/09/2018. FINDINGS: Bones/joints: Arthrosis of the first metatarsophalangeal joint. Achilles tendon and plantar fascia enthesophytes. Os navicularis versus sequela of prior injury, unchanged compared to prior examination. Os peroneum. No osseous erosion is seen. No acute fracture. No dislocation. Soft tissues: Soft tissue swelling about the foot and ankle. No radiopaque foreign body. IMPRESSION: No radiographic findings to suggest osteomyelitis. If there is clinical concern for osteomyelitis, recommend evaluation with MRI.
[2018-10-04 22:39] LABS: African American GFR (CKD) >90 (>60 ml/min/1.73 sqM); Anion Gap 8 mmol/L; Carbon Dioxide 26 mmol/L (22-30); Chloride 102 mmol/L (98-107); Glucose 451 mg/dL (74-99); Sodium 136 mmol/L (137-145); Total Bilirubin 0.7 mg/dL (0.2-1.3); Total Protein 7.3 g/dL (6.3-8.2)
[2018-10-04 22:40] LABS: ALT 8 U/L (9-52); AST 29 U/L (14-36); Alkaline Phosphatase 78 U/L (38-126); Blood Urea Nitrogen 22 mg/dL (7-17)
[2018-10-04 22:43] LABS: Basophils % (A) 1 %; Eosinophils # (A) 0.2 k/uL (0-0.7); Eosinophils % (A) 5 %; HCT 38.5 % (34.0-46.0); HGB 12.4 gm/dL (11.4-16.0); Hypochromasia Slight; Lymphocytes # (A) 0.8 k/uL (1.0-4.8); Lymphocytes % (A) 17 %; MCHC 32.3 g/dL (31.0-37.0); MCV 86.8 fL (80.0-100.0); Mean Platelet Volume 9.4; Monocytes # (A) 0.2 k/uL (0-1.0); Monocytes % (A) 4 %; Neutrophils # (A) 3.3 k/uL (1.3-7.7); Neutrophils % (A) 72 %; RBC 4.43 m/uL (3.80-5.40); RDW 15.3 % (11.5-15.5); WBC 4.6 k/uL (3.8-10.6)
[2018-10-04] MEDS ORDERED: INSULIN REGULAR 100 UNIT/ML VIAL SQ ONE (22:45)
--- NOTE | 2018-10-04 23:11 | ED ---
Skin/Abscess/FB HPI - General Source: patient Mode of arrival: wheelchair <Marion Aguilera - Last Filed: 10/05/18 03:36> <Molly Sherman - Last Filed: 10/06/18 04:17> - General Chief complaint: Skin/Abscess/Foreign Body Stated complaint: Rt Heel DM Ulcer Time Seen by Provider: 10/04/18 21:35 - History of Present Illness Initial comments: 62-year-old female with history of diabetes and diabetic ulcers presenting today for chief complaint of right heel diabetic ulcer. Patient states she had a ulcer develop about a week and half ago. She states she has had her first wound care appointment this week. She states her son checks the wound daily. He did not think it was slightly black around the area and presents emergency departme nt for a second opinion. She denies any fevers surrounding redness she denies any increasing pain. Patient denies any complaints other than her son noting change in color. Remaining review of systems negative. Upon arrival patient appears well no signs of acute distress. (Marion Aguilera) - Related Data Home Medications Medication Instructions Recorded Confirmed metFORMIN HCL [Glucophage] 850 mg PO BID 02/18/14 07/09/18 Aspirin EC [Ecotrin Low Dose] 81 mg PO DAILY 04/08/18 07/09/18 Cetirizine HCl [Zyrtec] 10 mg PO DAILY 04/08/18 07/09/18 Insulin Glargine,Hum.rec.anlog 80 unit SQ HS 04/08/18 07/09/18 [Basaglar Kwikpen U-100] Insulin Glargine,Hum.rec.anlog 100 unit SQ QAM 04/08/18 07/09/18 [Basaglar Kwikpen U-100] Latanoprost [Xalatan 0.005%] 1 drop BOTH EYES HS 04/08/18 07/09/18 Simvastatin [Zocor] 40 mg PO HS 04/08/18 07/09/18 Triamterene/Hydrochlorothiazid 1 tab PO BID@1000,1400 04/08/18 07/09/18 [Maxzide 37.5-25] Venlafaxine HCl ER [Effexor XR] 150 mg PO DAILY 04/08/18 07/09/18 HYDROcodone/APAP 10-325MG [Williams 1 tab PO Q8H PRN 06/05/18 07/09/18 10-325] Insulin Detemir (Levemir) [Levemir] 35 unit SQ TID-W/MEALS 07/04/18 07/09/18 Nystatin 100,000 Unit/gm Powd 1 applic TOPICAL BID 07/04/18 07/09/18 [Mycostatin Powder] Previous Rx's Medication Instructions Recorded Cyclobenzaprine [Flexeril] 10 mg PO BID tab 02/16/18 Pregabalin [Lyrica] 75 mg PO BID cap 02/16/18 Levothyroxine Sodium [Synthroid] 100 mcg PO DAILY@0630 tab 04/11/18 predniSONE 50 mg PO DAILY #5 tablet 07/04/18 Clindamycin HCl 300 mg PO Q6H #28 cap 08/18/18 Sulfamethox-Tmp 800-160Mg [Bactrim 1 tab PO Q12HR #20 tab 09/28/18 DS 800-160 mg] Ciprofloxacin HCl [Cipro] 500 mg PO Q12HR #20 tablet 10/01/18 Allergies Allergy/AdvReac Type Severity Reaction Status Date / Time meropenem Allergy Itching Verified 09/28/18 19:36 Penicillins Allergy Anaphylaxis Verified 09/28/18 19:36 Review of Systems ROS Other: All systems not noted in ROS Statement are negative. <Marion Aguilera L - Last Filed: 10/05/18 03:36> ROS Other: All systems not noted in ROS Statement are negative. <Molly Sherman P - Last Filed: 10/06/18 04:17> ROS Statement: Those systems with pertinent positive or pertinent negative responses have been documented in the HPI. Past Medical History Past Medical History: Asthma, Cancer, COPD, Diabetes Mellitus, Eye Disorder, Hyperlipidemia, Liver Disease, Musculoskeletal Disorder, Neurologic Disorder, Osteoarthritis (OA), Sleep Apnea/CPAP/BIPAP, Thyroid Disorder Additional Past Medical History / Comment(s): History of osteomyelitis left #3 toe and left calf: 2004. cervical cancer (in remission.) Wound vac. Cirrhosis of the liver r/t diabetes - sees Dr. Barraza, History of Any Multi-Drug Resistant Organisms: MRSA Date of last positivie culture/infection: 03/20/17 MDRO Source:: MRSA HEEL Past Surgical History: Section, Cholecystectomy, Hysterectomy, Orthopedic Surgery, Tonsillectomy, Tubal Ligation Additional Past Surgical History / Comment(s): Cataracts and laser surgery for glaucoma. Multiple I&D to left foot and lower leg. Past Anesthesia/Blood Transfusion Reactions: No Reported Reaction Past Psychological History: Anxiety, Bipolar, Depression Smoking Status: Former smoker Past Alcohol Use History: None Reported Past Drug Use History: Marijuana - Past Family History Father Family Medical History: Congestive Heart Failure (CHF), Coronary Artery Disease (CAD), Myocardial Infarction ([place]) Mother Family Medical History: Coronary Artery Disease (CAD), CVA/TIA, Dementia, Myocardial Infarction ([place]) <Marion Aguilera - Last Filed: 10/05/18 03:36> General Exam <Marion Aguilera - Last Filed: 10/05/18 03:36> - General Exam Comments Initial Comments: General: The patient is awake and alert, in no distress, and does not appear acutely ill. Eye: +3 m pupils are equal, round and reactive to light, extra-ocular movements are intact. No nystagmus. There is normal conjunctiva bilaterally. No signs of icterus. Ears, nose, mouth and throat: There are moist mucous membranes and no oral lesions. Neck: The neck is supple, there is no tenderness or JVD. Cardiovascular: There is a regular rate and rhythm. No murmur, rub or gallop is appreciated. Respiratory: Lungs are clear to auscultation, respirations are non-labored, breath sounds are equal. No wheezes, stridor, rales, or rhonchi. Gastrointestinal: Soft, non-distended, non-tender abdomen without masses or organomegaly noted. There is no rebound or guarding present. Musculoskeletal: Normal ROM, no tenderness. Strength 5/5. Sensation intact. Radial pulses equal bilaterally 2+. Neurological: A&O x 3. CN II-XII intact, There are no obvious motor or sensory deficits. Coordination appears grossly intact. Speech is normal. Skin: Skin is warm and dry and no rashes. 1cm circular ulceration that appears shallow with no exposure of underlying structure, no foul odor, no to palpation, no necrotic tissue or surrounding erythema noted. Psychiatric: Cooperative, appropriate mood & affect, normal judgment. (Marion Aguilera) Course Vital Signs 10/04/18 21:19 Temperature 98.5 F Pulse Rate 75 Respiratory 18 Rate Blood Pressure 136/60 O2 Sat by Pulse 94 L Oximetry Medical Decision Making - Lab Data Result diagrams: 10/04/18 22:25 10/04/18 22:25 <Marion Aguilera - Last Filed: 10/05/18 03:36> - Lab Data Result diagrams: 10/04/18 22:25 10/04/18 22:25 <Molly Sherman - Last Filed: 10/06/18 04:17> - Medical Decision Making 62yo female present for diabetic ulcer reevaluation. No signs of secondary infection on examination. X-ray revealed no signs of vasculitis. No leukocytosis. Patient afebrile. No surrounding cellulitis. This time seen no complicating process seen. Patient told to continue her wound care visits to follow-up with her doctor on Sunday. Patient is agreeable with care plan discharge. Return parameters were discussed at length. Patient was discharged appearing well (Marion Aguilera) I was available for consultation in the emergency department. The history and physical exam were done by the midlevel provider. I was consulted for this patient's care. I reviewed the case with the midlevel provider and based on their presentation of the patient, I agree with the assessment, medical decision making and plan of care as documented. Chart was dictated using [employer] dictation software. Attempts were made to correct any dictation errors however some typographical errors may persist. (Molly Sherman) - Lab Data Lab Results 10/04/18 10/04/18 10/04/18 Range/Units 22:25 22:25 22:25 WBC 4.6 (3.8-10.6) k/uL RBC 4.43 (3.80-5.40) m/uL Hgb 12.4 (11.4-16.0) gm/dL Hct 38.5 (34.0-46.0) % MCV 86.8 (80.0-100.0) fL MCH 28.0 (25.0-35.0) pg MCHC 32.3 (31.0-37.0) g/dL RDW 15.3 (11.5-15.5) % Plt Count 78 L (150-450) k/uL Neutrophils % 72 % Lymphocytes % 17 % Monocytes % 4 % Eosinophils % 5 % Basophils % 1 % Neutrophils # 3.3 (1.3-7.7) k/uL Lymphocytes # 0.8 L (1.0-4.8) k/uL Monocytes # 0.2 (0-1.0) k/uL Eosinophils # 0.2 (0-0.7) k/uL Basophils # 0.0 (0-0.2) k/uL Manual Slide Review Performed Hypochromasia Slight Sodium 136 L (137-145) mmol/L Potassium 5.0 (3.5-5.1) mmol/L Chloride 102 (98-107) mmol/L Carbon Dioxide 26 (22-30) mmol/L Anion Gap 8 mmol/L BUN 22 H (7-17) mg/dL Creatinine 0.74 (0.52-1.04) mg/dL Est GFR (CKD-EPI)AfAm >90 (>60 ml/min/1.73 sqM) Est GFR (CKD-EPI)NonAf 89 (>60 ml/min/1.73 sqM) Glucose 451 H (74-99) mg/dL Calcium 9.0 (8.4-10.2) mg/dL Total Bilirubin 0.7 (0.2-1.3) mg/dL AST 29 (14-36) U/L ALT 8 L (9-52) U/L Alkaline Phosphatase 78 (38-126) U/L Total Protein 7.3 (6.3-8.2) g/dL Albumin 4.0 (3.5-5.0) g/dL Acetone, Qual Negative (Negative) Disposition Is patient prescribed a controlled substance at d/c from ED?: No Time of Disposition: 23:08 <Marion Aguilera L - Last Filed: 10/05/18 03:36> <Molly Sherman P - Last Filed: 10/06/18 04:17> Clinical Impression: Diabetic ulcer of heel, Blood glucose elevated Disposition: HOME SELF-CARE Condition: Good Instructions (If sedation given, give patient instructions): Diabetic Foot Ulcers (ED) Additional Instructions: Please use medication as discussed. Please follow-up with family doctor in the next 2 days, and wound care clinic as scheduled. Please return to emergency room if the symptoms increase or worsen or for any other concerns, fever, drainage, redness, pain. Referrals: Lilibeth Seymour MD [Primary Care Provider] - 1-2 days
[2018-10-04 23:46] LABS: Platelet Count 78 k/uL (150-450)
== END 2018-10-04 23:34 | disposition home or self-care (01) ==
LOC: EC 21:02
DX: E11.621 Type 2 diabetes mellitus with foot ulcer (principal); L97.419 Non-pressure chronic ulcer of right heel and midfoot with unspecified severity; E11.65 Type 2 diabetes mellitus with hyperglycemia; E78.5 Hyperlipidemia, unspecified; F31.9 Bipolar disorder, unspecified; F41.9 Anxiety disorder, unspecified; M19.90 Unspecified osteoarthritis, unspecified site; G47.30 Sleep apnea, unspecified; Z87.891 Personal history of nicotine dependence; Z86.14 Personal history of Methicillin resistant Staphylococcus aureus infection; Z88.0 Allergy status to penicillin; Z88.1 Allergy status to other antibiotic agents; Z79.4 Long term (current) use of insulin; Z79.82 Long term (current) use of aspirin; Z79.899 Other long term (current) drug therapy; Z85.41 Personal history of malignant neoplasm of cervix uteri; Z90.710 Acquired absence of both cervix and uterus; Z98.890 Other specified postprocedural states; Z99.89 Dependence on other enabling machines and devices
CPT/HCPCS: 36415; 80053; 82009; 85025; 99283

== ENCOUNTER 2018-10-06 15:55 | Emergency (ER) | payer OTHER ==
[2018-10-06 16:16] VITALS: BP 145/74; PULSE 78; RESP 18; TEMP 97
--- NOTE | 2018-10-06 16:35 | XR ---
EXAMINATION TYPE: XR foot complete LT DATE OF EXAM: 10/06/2018 COMPARISON: 08/18/2018 HISTORY: Possible foreign body. 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 There are plantar and Achilles calcaneal spurs. I see no fracture nor dislocation. There is no focal bone destruction. There is no sign of radiopaque foreign body. IMPRESSION: Chronic changes. No acute abnormality. No foreign body seen.
--- NOTE | 2018-10-06 16:50 | ED ---
Skin/Abscess/FB HPI - General Source: patient Mode of arrival: wheelchair Limitations: no limitations <Marion Aguilera - Last Filed: 10/06/18 16:56> <Gary Hudson - Last Filed: 10/06/18 17:45> - General Chief complaint: Skin/Abscess/Foreign Body Stated complaint: POSS FB/INSULIN NEEDLE IN LEFT FOOT Time Seen by Provider: 10/06/18 16:08 - History of Present Illness Initial comments: 62yo female presenting for possible left foot foreign body. Patient states she noticed today, diabetic needle was stuck on the bottom of her foot. She states she does daily for checks. Patient was concerned because the needle was not attached and she thought it may be in her foot. Patient denies any specific foot pain she said there was uncomfortable when the top of the diabetic needle Was in her foot other than that since its removal she has no pain. Patient denies any surrounding redness. Denies any no laceration or abrasion. Patient states if there is no foreign body she has no other concerns. Remaining review of systems negative upon arrival patient appears well signs of acute distress. Patient states that her diabetic ulcer of the right foot seems to be getting better patient goes to the wound care clinic for management. No concerns of the right lower extremity. (Marion Aguilera) - Related Data Home Medications Medication Instructions Recorded Confirmed metFORMIN HCL [Glucophage] 850 mg PO BID 02/18/14 07/09/18 Aspirin EC [Ecotrin Low Dose] 81 mg PO DAILY 04/08/18 07/09/18 Cetirizine HCl [Zyrtec] 10 mg PO DAILY 04/08/18 07/09/18 Insulin Glargine,Hum.rec.anlog 80 unit SQ HS 04/08/18 07/09/18 [Basaglar Kwikpen U-100] Insulin Glargine,Hum.rec.anlog 100 unit SQ QAM 04/08/18 07/09/18 [Basaglar Kwikpen U-100] Latanoprost [Xalatan 0.005%] 1 drop BOTH EYES HS 04/08/18 07/09/18 Simvastatin [Zocor] 40 mg PO HS 04/08/18 07/09/18 Triamterene/Hydrochlorothiazid 1 tab PO BID@1000,1400 04/08/18 07/09/18 [Maxzide 37.5-25] Venlafaxine HCl ER [Effexor XR] 150 mg PO DAILY 04/08/18 07/09/18 HYDROcodone/APAP 10-325MG [Rickreall 1 tab PO Q8H PRN 06/05/18 07/09/18 10-325] Insulin Detemir (Levemir) [Levemir] 35 unit SQ TID-W/MEALS 07/04/18 07/09/18 Nystatin 100,000 Unit/gm Powd 1 applic TOPICAL BID 07/04/18 07/09/18 [Mycostatin Powder] Previous Rx's Medication Instructions Recorded Cyclobenzaprine [Flexeril] 10 mg PO BID tab 02/16/18 Pregabalin [Lyrica] 75 mg PO BID cap 02/16/18 Levothyroxine Sodium [Synthroid] 100 mcg PO DAILY@0630 tab 04/11/18 predniSONE 50 mg PO DAILY #5 tablet 07/04/18 Clindamycin HCl 300 mg PO Q6H #28 cap 08/18/18 Sulfamethox-Tmp 800-160Mg [Bactrim 1 tab PO Q12HR #20 tab 09/28/18 DS 800-160 mg] Ciprofloxacin HCl [Cipro] 500 mg PO Q12HR #20 tablet 10/01/18 Allergies Allergy/AdvReac Type Severity Reaction Status Date / Time meropenem Allergy Itching Verified 10/06/18 16:09 Penicillins Allergy Anaphylaxis Verified 10/06/18 16:09 Review of Systems ROS Other: All systems not noted in ROS Statement are negative. <Marion Aguilera - Last Filed: 10/06/18 16:56> ROS Other: All systems not noted in ROS Statement are negative. <Gary Hudson - Last Filed: 10/06/18 17:45> ROS Statement: Those systems with pertinent positive or pertinent negative responses have been documented in the HPI. Past Medical History Past Medical History: Asthma, Cancer, COPD, Diabetes Mellitus, Eye Disorder, Hyperlipidemia, Liver Disease, Musculoskeletal Disorder, Neurologic Disorder, Osteoarthritis (OA), Sleep Apnea/CPAP/BIPAP, Thyroid Disorder Additional Past Medical History / Comment(s): History of osteomyelitis left #3 toe and left calf: 2004. cervical cancer (in remission.) Wound vac. Cirrhosis of the liver r/t diabetes - sees Dr. Barraza, History of Any Multi-Drug Resistant Organisms: MRSA Date of last positivie culture/infection: 03/20/17 MDRO Source:: MRSA HEEL Past Surgical History: Section, Cholecystectomy, Hysterectomy, Orthopedic Surgery, Tonsillectomy, Tubal Ligation Additional Past Surgical History / Comment(s): Cataracts and laser surgery for glaucoma. Multiple I&D to left foot and lower leg. Past Anesthesia/Blood Transfusion Reactions: No Reported Reaction Past Psychological History: Anxiety, Bipolar, Depression Smoking Status: Former smoker Past Alcohol Use History: None Reported Past Drug Use History: Marijuana - Past Family History Father Family Medical History: Congestive Heart Failure (CHF), Coronary Artery Disease (CAD), Myocardial Infarction ([place]) Mother Family Medical History: Coronary Artery Disease (CAD), CVA/TIA, Dementia, Myocardial Infarction ([place]) <Marion Aguilera - Last Filed: 10/06/18 16:56> General Exam Limitations: no limitations <Marion Aguilera - Last Filed: 10/06/18 16:56> - General Exam Comments Initial Comments: General: The patient is awake and alert, in no distress, and does not appear acutely ill. Eye: Pupils are equal, round and reactive to light, extra-ocular movements are intact. No nystagmus. There is normal conjunctiva bilaterally. No signs of icterus. Cardiovascular: There is a regular rate and rhythm. No murmur, rub or gallop is appreciated. Respiratory: Lungs are clear to auscultation, respirations are non-labored, breath sounds are equal. No wheezes, stridor, rales, or rhonchi. Musculoskeletal: Normal ROM, no tenderness. Strength 5/5. Sensation intact. Dp pulses equal bilaterally 2+. Neurological: A&O x 3. CN II-XII intact, There are no obvious motor or sensory deficits. Coordination appears grossly intact. Speech is normal. Skin: Skin is warm and dry and no rashes or lesions are noted. CDI intact bandage of the right heel. Left foot middling middle digit (appears surgical), no erythema, swelling, ulcer ,abscess, or evidence supportive of foreign body. Psychiatric: Cooperative, appropriate mood & affect, normal judgment. (Marion Aguilera) Course Vital Signs 10/06/18 10/06/18 16:08 17:18 Temperature 97.0 F L 97.0 F L Pulse Rate 78 78 Respiratory 18 18 Rate Blood Pressure 145/74 145/74 O2 Sat by Pulse 98 98 Oximetry Medical Decision Making <Marion Aguilera - Last Filed: 10/06/18 16:56> <Gary Hudson - Last Filed: 10/06/18 17:45> - Medical Decision Making 62 yo female presenting for possible foreign body. X-ray revealed no evidence of foreign body did review imaging studies myself. No clinical evidence of foreign body on examination. No evidence of the laceration abrasion or cellulitis. Patient denies pain since she removed the needle. She was evaluated them attending provider Dr. Hudson prior to patient's discharge. He is agreeable care plan discharge this time. I did recommend patient continue to do daily for checks. And should there is no foreign bodies in she was prior to bring them on. Patient was understanding. Patient is to return for any redness erythema or warmth of the left foot, any fevers. Patient presents stating. Patient prescription Plan discharge at this time. (Marion Aguilera) I evaluated this patient and reviewed radiology. no evidence of foreign body, patient instructed on return instructions and close follow up with PCP. (Gary Hudson) Disposition Is patient prescribed a controlled substance at d/c from ED?: No Time of Disposition: 16:50 <Marion Aguilera - Last Filed: 10/06/18 16:56> <Gary Hudson - Last Filed: 10/06/18 17:45> Clinical Impression: Foot pain, left Disposition: HOME SELF-CARE Condition: Good Referrals: Lilibeth Seymour MD [Primary Care Provider] - 1-2 days
== END 2018-10-06 17:18 | disposition home or self-care (01) ==
LOC: EC 15:55
DX: M79.672 Pain in left foot (principal); E11.621 Type 2 diabetes mellitus with foot ulcer; L97.519 Non-pressure chronic ulcer of other part of right foot with unspecified severity; E78.5 Hyperlipidemia, unspecified; F41.9 Anxiety disorder, unspecified; F32.9 Major depressive disorder, single episode, unspecified; G47.30 Sleep apnea, unspecified; Z87.891 Personal history of nicotine dependence; Z88.0 Allergy status to penicillin; Z88.1 Allergy status to other antibiotic agents; Z79.82 Long term (current) use of aspirin; Z79.4 Long term (current) use of insulin; Z79.899 Other long term (current) drug therapy; Z86.69 Personal history of other diseases of the nervous system and sense organs; Z87.39 Personal history of other diseases of the musculoskeletal system and connective tissue; Z98.890 Other specified postprocedural states; Z86.14 Personal history of Methicillin resistant Staphylococcus aureus infection; Z99.89 Dependence on other enabling machines and devices; Z85.41 Personal history of malignant neoplasm of cervix uteri
CPT/HCPCS: 99283

== ENCOUNTER → 2018-10-11 | Outpatient (CLI) | payer OTHER ==
--- NOTE | 2018-10-11 13:57 | US ---
EXAMINATION TYPE: US venous doppler duplex LE BI DATE OF EXAM: 10/11/2018 12:53 PM COMPARISON: NONE CLINICAL HISTORY: E08.621 Diabetes mellitus due to underlying condit. morbidly obese patient with leg pain, no h/o dvt SIDE PERFORMED: Bilateral TECHNIQUE: The lower extremity deep venous system is examined utilizing real time linear array sonog michelle with graded compression, doppler sonography and color-flow sonography. Exam performed for deep venous thrombosis and not venous reflux. VESSELS IMAGED: External Iliac Vein (EIV) Common Femoral Vein Deep Femoral Vein Greater Saphenous Vein * Femoral Vein Popliteal Vein Small Saphenous Vein * Proximal Calf Veins (* superficial vessels) Right Leg: Appears negative for DVT Left Leg: Appears negative for DVT IMPRESSION: 1. Bilateral lower extremity ultrasound negative for deep venous thrombosis.
== END | disposition home or self-care (01) ==
LOC: RADUSWWP 12:13
PROVIDERS: ATTEND Thoracic Surgery (Cardiothoracic Vascular Surgery)
DX: E08.621 Diabetes mellitus due to underlying condition with foot ulcer (principal); L97.519 Non-pressure chronic ulcer of other part of right foot with unspecified severity
CPT/HCPCS: 93922; 93970

== ENCOUNTER 2018-10-12 10:36 | Emergency (ER) | payer OTHER ==
[2018-10-12 11:00] VITALS: RESP 18
[2018-10-12] MEDS ORDERED: SODIUM CHLORIDE 0.9% 1,000 ML IV STA (11:24)
[2018-10-12] MEDS ORDERED: MECLIZINE 12.5 MG TAB PO STA (11:24)
[2018-10-12 11:45] LABS: Basophils % (A) 1 %; Eosinophils # (A) 0.3 k/uL (0-0.7); Eosinophils % (A) 7 %; HCT 39.3 % (34.0-46.0); HGB 12.4 gm/dL (11.4-16.0); Hypochromasia Slight; Lymphocytes # (A) 0.7 k/uL (1.0-4.8); Lymphocytes % (A) 14 %; MCH 27.3 pg (25.0-35.0); MCHC 31.4 g/dL (31.0-37.0); MCV 86.9 fL (80.0-100.0); Mean Platelet Volume 8.6; Monocytes # (A) 0.2 k/uL (0-1.0); Monocytes % (A) 4 %; Neutrophils # (A) 3.6 k/uL (1.3-7.7); Neutrophils % (A) 73 %; RBC 4.52 m/uL (3.80-5.40)
[2018-10-12 11:59] LABS: Platelet Count 67 k/uL (150-450)
--- NOTE | 2018-10-12 11:59 | ED ---
General Adult HPI - General Chief complaint: Dizziness Stated complaint: High Blood Sugar-500s Time Seen by Provider: 10/12/18 10:56 Source: patient, family Mode of arrival: wheelchair - History of Present Illness Initial comments: 62-year-old female patient presents to the emergency department today for evaluation of elevated blood sugar. Patient states that her sugars have been around 500 at home and she is having difficulty controlling them. Patient states that she has had elevated sugars for the last 3-4 days. Patient states she does both injectable insulin and oral medications. Patient states that she has had a sore throat and some left ear discomfort for the last 2 days. Patient is currently taking antibiotics for a wound to her foot that has been chronic since 2017. She denies any fever or chills. Denies any abdominal pain, nausea, or vomiting. Denies any constipation or diarrhea. Patient states she has been taking her insulin as directed. She states that she is also having some dizziness which is been having for the last several months. She denies any headache, blurred vision, or double vision. Denies any numbness or tingling to her extremities. Patient denies any recent rash, shortness breath, chest pain, back pain, numbness, tingling, hematuria, dysuria, urinary urgency, urinary frequency, or any other complaints. - Related Data Home Medications Medication Instructions Recorded Confirmed metFORMIN HCL [Glucophage] 850 mg PO BID 02/18/14 10/12/18 Aspirin EC [Ecotrin Low Dose] 81 mg PO DAILY 04/08/18 10/12/18 Cetirizine HCl [Zyrtec] 10 mg PO DAILY 04/08/18 10/12/18 Insulin Glargine,Hum.rec.anlog 80 unit SQ HS 04/08/18 10/12/18 [Basaglar Kwikpen U-100] Insulin Glargine,Hum.rec.anlog 100 unit SQ QAM 04/08/18 10/12/18 [Basaglar Kwikpen U-100] Simvastatin [Zocor] 40 mg PO HS 04/08/18 10/12/18 Triamterene/Hydrochlorothiazid 1 tab PO BID@1000,1400 04/08/18 10/12/18 [Maxzide 37.5-25] HYDROcodone/APAP 10-325MG [[place] 1 tab PO Q8H PRN 06/05/18 10/12/18 10-325] Insulin Detemir (Levemir) [Levemir] 35 unit SQ TID-W/MEALS 07/04/18 10/12/18 Nystatin 100,000 Unit/gm Powd 1 applic TOPICAL BID 07/04/18 10/12/18 [Mycostatin Powder] ARIPiprazole [Abilify] 5 mg PO HS 10/12/18 10/12/18 Venlafaxine HCl [Effexor XR] 225 mg PO DAILY 10/12/18 10/12/18 traZODone HCL [Desyrel] 100 mg PO HS 10/12/18 10/12/18 Previous Rx's Medication Instructions Recorded Cyclobenzaprine [Flexeril] 10 mg PO BID tab 02/16/18 Pregabalin [Lyrica] 75 mg PO BID cap 02/16/18 Levothyroxine Sodium [Synthroid] 100 mcg PO DAILY@0630 tab 04/11/18 Ciprofloxacin HCl [Cipro] 500 mg PO Q12HR #20 tablet 10/01/18 Allergies Allergy/AdvReac Type Severity Reaction Status Date / Time meropenem Allergy Itching Verified 10/12/18 11:07 Penicillins Allergy Anaphylaxis Verified 10/12/18 11:07 Review of Systems ROS Statement: Those systems with pertinent positive or pertinent negative responses have been documented in the HPI. ROS Other: All systems not noted in ROS Statement are negative. Past Medical History Past Medical History: Asthma, Cancer, COPD, Diabetes Mellitus, Eye Disorder, Hyperlipidemia, Liver Disease, Musculoskeletal Disorder, Neurologic Disorder, Osteoarthritis (OA), Sleep Apnea/CPAP/BIPAP, Thyroid Disorder Additional Past Medical History / Comment(s): History of osteomyelitis left #3 toe and left calf: 2004. cervical cancer (in remission.) Wound vac. Cirrhosis of the liver r/t diabetes - sees Dr. Barraza, History of Any Multi-Drug Resistant Organisms: MRSA Date of last positivie culture/infection: 03/20/17 MDRO Source:: MRSA HEEL Past Surgical History: Section, Cholecystectomy, Hysterectomy, Orthopedic Surgery, Tonsillectomy, Tubal Ligation Additional Past Surgical History / Comment(s): Cataracts and laser surgery for glaucoma. Multiple I&D to left foot and lower leg. Past Anesthesia/Blood Transfusion Reactions: No Reported Reaction Past Psychological History: Anxiety, Bipolar, Depression Smoking Status: Former smoker Past Alcohol Use History: None Reported Past Drug Use History: Marijuana - Past Family History Father Family Medical History: Congestive Heart Failure (CHF), Coronary Artery Disease (CAD), Myocardial Infarction ([place]) Mother Family Medical History: Coronary Artery Disease (CAD), CVA/TIA, Dementia, Myocardial Infarction ([place]) General Exam General appearance: alert, in no apparent distress, other (This is a well- developed, well-nourished adult female patient in no acute distress. Vital signs upon presentation are temperature 97.8F, pulse 75, respirations 18, blood pressure 119/55, pulse ox 95% on room air.) Eye exam: Present: normal appearance, PERRL, EOMI. Absent: scleral icterus, conjunctival injection, periorbital swelling ENT exam: Present: normal exam, mucous membranes moist. Absent: normal oropharynx (Pharyngeal erythema. No tonsillar hypertrophy, no exudate.), TM's normal bilaterally (Left tympanic membrane is obscured by earwax) Respiratory exam: Present: normal lung sounds bilaterally. Absent: respiratory distress, wheezes, rales, rhonchi, stridor Cardiovascular Exam: Present: regular rate, normal rhythm, normal heart sounds. Absent: systolic murmur, diastolic murmur, rubs, gallop, clicks GI/Abdominal exam: Present: soft, normal bowel sounds. Absent: distended, tenderness, guarding, rebound, rigid Neurological exam: Present: alert, oriented X3, CN II-XII intact Psychiatric exam: Present: normal affect, normal mood Skin exam: Present: warm, dry, intact, normal color. Absent: rash Course Vital Signs 10/12/18 10/12/18 10:46 13:45 Temperature 97.8 F Pulse Rate 75 70 Respiratory 18 18 Rate Blood Pressure 119/55 107/60 O2 Sat by Pulse 95 98 Oximetry EKG Findings - EKG Comments: EKG Findings:: EKG obtained at 1201 shows normal sinus rhythm with a ventricular rate of 73, PA interval 174, QRS duration 86, QT 394, QTC 434. No evidence of ST elevation or depression. Medical Decision Making - Medical Decision Making 62-year-old female patient presents the emergency department today for evaluation of elevated blood sugar. Patient reports some dizziness but she has been having this for quite some time, she states many months. Physical examination is unremarkable. She is neurologically intact with no focal defic its. Patient is currently being treated for a wound infection on her right foot with Cipro. Labs reviewed and did reveal elevated blood sugar, other results are unremarkable. She is given IV fluids, blood sugar did improve she'll be given a dose of insulin and and discharged home. She is instructed to keep a log of blood sugars for her primary care physician. She is instructed to follow-up for recheck in 1-2 days. Return parameters were discussed in detail. She verbalizes understanding and agrees with this plan. - Lab Data Result diagrams: 10/12/18 11:34 10/12/18 11:34 Lab Results 10/12/18 10/12/18 10/12/18 Range/Units 11:34 11:34 12:58 WBC 5.0 (3.8-10.6) k/uL RBC 4.52 (3.80-5.40) m/uL Hgb 12.4 (11.4-16.0) gm/dL Hct 39.3 (34.0-46.0) % MCV 86.9 (80.0-100.0) fL MCH 27.3 (25.0-35.0) pg MCHC 31.4 (31.0-37.0) g/dL RDW 15.0 (11.5-15.5) % Plt Count 67 L (150-450) k/uL Neutrophils % 73 % Lymphocytes % 14 % Monocytes % 4 % Eosinophils % 7 % Basophils % 1 % Neutrophils # 3.6 (1.3-7.7) k/uL Lymphocytes # 0.7 L (1.0-4.8) k/uL Monocytes # 0.2 (0-1.0) k/uL Eosinophils # 0.3 (0-0.7) k/uL Basophils # 0.0 (0-0.2) k/uL Hypochromasia Slight Sodium 138 (137-145) mmol/L Potassium 4.7 (3.5-5.1) mmol/L Chloride 101 (98-107) mmol/L Carbon Dioxide 28 (22-30) mmol/L Anion Gap 9 mmol/L BUN 21 H (7-17) mg/dL Creatinine 0.68 (0.52-1.04) mg/dL Est GFR (CKD-EPI)AfAm >90 (>60 ml/min/1.73 sqM) Est GFR (CKD-EPI)NonAf >90 (>60 ml/min/1.73 sqM) Glucose 362 H (74-99) mg/dL POC Glucose (mg/dL) (75-99) mg/dL POC Glu Cattle Driver ID Calcium 9.1 (8.4-10.2) mg/dL Total Bilirubin 0.4 (0.2-1.3) mg/dL AST 22 (14-36) U/L ALT 28 (9-52) U/L Alkaline Phosphatase 92 (38-126) U/L Total Protein 6.5 (6.3-8.2) g/dL Albumin 3.5 (3.5-5.0) g/dL Urine Color Light Yellow Urine Appearance Clear (Clear) Urine pH 6.5 (5.0-8.0) Ur Specific [place] 1.015 (1.001-1.035) Urine Protein Negative (Negative) Urine Glucose (UA) 4+ H (Negative) Urine Ketones Negative (Negative) Urine Blood Negative (Negative) Urine Nitrite Negative (Negative) Urine Bilirubin Negative (Negative) Urine Urobilinogen <2.0 (<2.0) mg/dL Ur Leukocyte Esterase Negative (Negative) 10/12/18 Range/Units 14:30 WBC (3.8-10.6) k/uL RBC (3.80-5.40) m/uL Hgb (11.4-16.0) gm/dL Hct (34.0-46.0) % MCV (80.0-100.0) fL MCH (25.0-35.0) pg MCHC (31.0-37.0) g/dL RDW (11.5-15.5) % Plt Count (150-450) k/uL Neutrophils % % Lymphocytes % % Monocytes % % Eosinophils % % Basophils % % Neutrophils # (1.3-7.7) k/uL Lymphocytes # (1.0-4.8) k/uL Monocytes # (0-1.0) k/uL Eosinophils # (0-0.7) k/uL Basophils # (0-0.2) k/uL Hypochromasia Sodium (137-145) mmol/L Potassium (3.5-5.1) mmol/L Chloride (98-107) mmol/L Carbon Dioxide (22-30) mmol/L Anion Gap mmol/L BUN (7-17) mg/dL Creatinine (0.52-1.04) mg/dL Est GFR (CKD-EPI)AfAm (>60 ml/min/1.73 sqM) Est GFR (CKD-EPI)NonAf (>60 ml/min/1.73 sqM) Glucose (74-99) mg/dL POC Glucose (mg/dL) 301 H (75-99) mg/dL POC Glu Cattle Driver ID July Calcium (8.4-10.2) mg/dL Total Bilirubin (0.2-1.3) mg/dL AST (14-36) U/L ALT (9-52) U/L Alkaline Phosphatase (38-126) U/L Total Protein (6.3-8.2) g/dL Albumin (3.5-5.0) g/dL Urine Color Urine Appearance (Clear) Urine pH (5.0-8.0) Ur Specific [place] (1.001-1.035) Urine Protein (Negative) Urine Glucose (UA) (Negative) Urine Ketones (Negative) Urine Blood (Negative) Urine Nitrite (Negative) Urine Bilirubin (Negative) Urine Urobilinogen (<2.0) mg/dL Ur Leukocyte Esterase (Negative) Disposition Clinical Impression: Hyperglycemia, Dizziness Disposition: HOME SELF-CARE Condition: Good Instructions (If sedation given, give patient instructions): Dizziness (ED), Diabetic Hyperglycemia (ED) Additional Instructions: Increase fluids. Follow strict diabetic diet. Keep a log of your blood sugars to take with you to primary care physician so they can adjust your medications. Discuss her chronic dizziness with your primary care doctor. Follow-up with your physician for recheck in 1-2 days. Return to the emergency department immediately for any new, worsening, or concerning symptoms. Is patient prescribed a controlled substance at d/c from ED?: No Referrals: Lilibeth Seymour MD [Primary Care Provider] - 1-2 days Time of Disposition: 14:59
[2018-10-12 12:01] LABS: ALT 28 U/L (9-52); AST 22 U/L (14-36); African American GFR (CKD) >90 (>60 ml/min/1.73 sqM); Albumin 3.5 g/dL (3.5-5.0); Alkaline Phosphatase 92 U/L (38-126); Anion Gap 9 mmol/L; Blood Urea Nitrogen 21 mg/dL (7-17); Calcium 9.1 mg/dL (8.4-10.2); Carbon Dioxide 28 mmol/L (22-30); Chloride 101 mmol/L (98-107); Glucose 362 mg/dL (74-99); Potassium 4.7 mmol/L (3.5-5.1); Sodium 138 mmol/L (137-145); Total Bilirubin 0.4 mg/dL (0.2-1.3); Total Protein 6.5 g/dL (6.3-8.2)
[2018-10-12 13:03] LABS: Appearance,Urine Clear (Clear); Bilirubin,Urine Negative (Negative); Blood,Urine Negative (Negative); Color,Urine Light Yellow; Glucose,Urine (UA) 4+ (Negative); Ketones,Urine Negative (Negative); Leukocyte Esterase,Urine Negative (Negative); Nitrite,Urine Negative (Negative); PH, Urine 6.5 (5.0-8.0); Protein,Urine Negative (Negative); Specific Gravity,Urine 1.015 (1.001-1.035); Urobilinogen,Urine <2.0 mg/dL (<2.0)
[2018-10-12] MEDS ORDERED: INSULIN ASPART (NovoLOG) 100 UNIT/ML VIAL SQ STA (14:35)
[2018-10-12 14:48] LABS: Glucose,Whole Blood 301 mg/dL (75-99)
[2018-10-12 15:30] VITALS: BP 119/68; PULSE 72; TEMP 98.3
== END 2018-10-12 15:28 | disposition home or self-care (01) ==
LOC: EC 10:36
DX: E11.65 Type 2 diabetes mellitus with hyperglycemia (principal); R42 Dizziness and giddiness; E78.5 Hyperlipidemia, unspecified; G47.30 Sleep apnea, unspecified; F41.9 Anxiety disorder, unspecified; F31.9 Bipolar disorder, unspecified; Z79.4 Long term (current) use of insulin; Z79.82 Long term (current) use of aspirin; Z79.899 Other long term (current) drug therapy; Z88.0 Allergy status to penicillin; Z88.1 Allergy status to other antibiotic agents; Z87.891 Personal history of nicotine dependence; Z85.41 Personal history of malignant neoplasm of cervix uteri
CPT/HCPCS: 36415; 80053; 81003; 85025; 93005; 96360; 99284

== ENCOUNTER 2018-10-24 08:40 | Emergency (ER) | payer OTHER ==
[2018-10-24 08:46] VITALS: RESP 18
[2018-10-24] MEDS ORDERED: SODIUM CHLORIDE 0.9% 1,000 ML IV STA ×2 (09:09)
--- NOTE | 2018-10-24 09:12 | ED ---
General Adult HPI - General Chief complaint: Recheck/Abnormal Lab/Rx Stated complaint: High sugar Time Seen by Provider: 10/24/18 08:45 Source: patient, RN notes reviewed, old records reviewed Mode of arrival: wheelchair Limitations: no limitations - History of Present Illness Initial comments: This is a 62-year-old female who presents emergency department today with complaints of hyperglycemia. She's been in and out of the emergency room for the past few weeks for similar complaints. She reports that she manages her blood sugar insulin. She reports that she woke up this morning and stated that her aunt's her Accu-Chek read high. She states she's had increased thirst. Patient reports that she has no other significant complaints besides general fatigue. Patient is being treated for a chronic right foot ulceration in infection. She's been on multiple rounds of antibiotics. She is managed at the wound care clinic, and she states That she has an appointment this afternoon. - Related Data Home Medications Medication Instructions Recorded Confirmed metFORMIN HCL [Glucophage] 850 mg PO BID 02/18/14 10/24/18 Aspirin EC [Ecotrin Low Dose] 81 mg PO DAILY 04/08/18 10/24/18 Cetirizine HCl [Zyrtec] 10 mg PO DAILY 04/08/18 10/24/18 Insulin Glargine,Hum.rec.anlog 80 unit SQ HS 04/08/18 10/24/18 [Basaglar Kwikpen U-100] Insulin Glargine,Hum.rec.anlog 100 unit SQ QAM 04/08/18 10/24/18 [Basaglar Kwikpen U-100] Simvastatin [Zocor] 40 mg PO HS 04/08/18 10/24/18 Triamterene/Hydrochlorothiazid 1 tab PO BID@1000,1400 04/08/18 10/24/18 [Maxzide 37.5-25] HYDROcodone/APAP 10-325MG [[place] 1 tab PO Q8H PRN 06/05/18 10/24/18 10-325] Insulin Detemir (Levemir) [Levemir] 35 unit SQ TID-W/MEALS 07/04/18 10/24/18 Nystatin 100,000 Unit/gm Powd 1 applic TOPICAL BID 04/04/19 07/25/19 [Mycostatin Powder] ARIPiprazole [Abilify] 5 mg PO HS 10/12/18 10/24/18 Venlafaxine HCl [Effexor XR] 225 mg PO DAILY 10/12/18 10/24/18 traZODone HCL [Desyrel] 100 mg PO HS 10/12/18 10/24/18 Previous Rx's Medication Instructions Recorded Cyclobenzaprine [Flexeril] 10 mg PO BID tab 02/16/18 Pregabalin [Lyrica] 75 mg PO BID cap 02/16/18 Levothyroxine Sodium [Synthroid] 100 mcg PO DAILY@0630 tab 04/11/18 Allergies Allergy/AdvReac Type Severity Reaction Status Date / Time meropenem Allergy Itching Verified 10/24/18 08:52 Penicillins Allergy Anaphylaxis Verified 10/24/18 08:52 Review of Systems ROS Statement: Those systems with pertinent positive or pertinent negative responses have been documented in the HPI. ROS Other: All systems not noted in ROS Statement are negative. Past Medical History Past Medical History: Asthma, Cancer, COPD, Diabetes Mellitus, Eye Disorder, Hyperlipidemia, Liver Disease, Musculoskeletal Disorder, Neurologic Disorder, Osteoarthritis (OA), Sleep Apnea/CPAP/BIPAP, Thyroid Disorder Additional Past Medical History / Comment(s): History of osteomyelitis left #3 toe and left calf: 2004. cervical cancer (in remission.) Wound vac. Cirrhosis of the liver r/t diabetes - sees Dr. Barraza, History of Any Multi-Drug Resistant Organisms: MRSA Date of last positivie culture/infection: 03/20/17 MDRO Source:: MRSA HEEL Past Surgical History: Section, Cholecystectomy, Hysterectomy, Orthopedic Surgery, Tonsillectomy, Tubal Ligation Additional Past Surgical History / Comment(s): Cataracts and laser surgery for glaucoma. Multiple I&D to left foot and lower leg. Past Anesthesia/Blood Transfusion Reactions: No Reported Reaction Past Psychological History: Anxiety, Bipolar, Depression Smoking Status: Former smoker Past Alcohol Use History: None Reported Past Drug Use History: Marijuana - Past Family History Father Family Medical History: Congestive Heart Failure (CHF), Coronary Artery Disease (CAD), Myocardial Infarction ([place]) Mother Family Medical History: Coronary Artery Disease (CAD), CVA/TIA, Dementia, Myocardial Infarction ([place]) General Exam - General Exam Comments Initial Comments: 62-year-old female. Alert and oriented. No distress. Limitations: no limitations Head exam: Present: atraumatic, normocephalic, normal inspection Eye exam: Present: normal appearance, PERRL, EOMI. Absent: scleral icterus, conjunctival injection, periorbital swelling ENT exam: Present: normal exam, mucous membranes moist Neck exam: Present: normal inspection. Absent: tenderness, meningismus, lymphadenopathy Respiratory exam: Present: normal lung sounds bilaterally. Absent: respiratory distress, wheezes, rales, rhonchi, stridor Cardiovascular Exam: Present: regular rate, normal rhythm, normal heart sounds. Absent: systolic murmur, diastolic murmur, rubs, gallop, clicks GI/Abdominal exam: Present: soft, normal bowel sounds. Absent: distended, tenderness, guarding, rebound, rigid Extremities exam: Present: normal inspection, full ROM, normal capillary refill, other (Patient has the wrap over her right foot.). Absent: tenderness, pedal edema, joint swelling, calf tenderness Back exam: Present: normal inspection Neurological exam: Present: alert, oriented X3, CN II-XII intact Psychiatric exam: Present: normal affect, normal mood Skin exam: Present: warm, dry, intact, normal color. Absent: rash Course Vital Signs 10/24/18 08:42 Temperature 97.8 F Pulse Rate 77 Respiratory 18 Rate Blood Pressure 120/56 O2 Sat by Pulse 94 L Oximetry Medical Decision Making - Medical Decision Making Patient is a 8-year-old female who presents for evaluation for high blood sugar. Patient's glucometer read high at home. Patient's blood sugar here was 476. She was started on IV fluids, and insulin drip and insulin bolus. Patient's blood work was otherwise unremarkable. She has emergency department and given 2 L of fluids, blood sugar was eventually to 88. On recheck I discussed the Patient needs to follow-up with her primary care doctor regards to insulin dosing and possibility of adding medication. She states that she is soon to be added on Sunday oh. I discussed if there is any alarming signs or symptoms to return. Discussed that when she eats anything further she should continue to dose her insulin as needed today. All questions answered return parameters were discussed. - Lab Data Result diagrams: 10/24/18 09:20 10/24/18 09:20 Lab Results 10/24/18 10/24/18 10/24/18 Range/Units 09:20 09:20 09:30 WBC 4.1 (3.8-10.6) k/uL RBC 4.27 (3.80-5.40) m/uL Hgb 11.7 (11.4-16.0) gm/dL Hct 37.2 (34.0-46.0) % MCV 87.1 (80.0-100.0) fL MCH 27.5 (25.0-35.0) pg MCHC 31.6 (31.0-37.0) g/dL RDW 15.9 H (11.5-15.5) % Plt Count 70 L (150-450) k/uL Neutrophils % 70 % Lymphocytes % 18 % Monocytes % 5 % Eosinophils % 5 % Basophils % 1 % Neutrophils # 2.8 (1.3-7.7) k/uL Lymphocytes # 0.7 L (1.0-4.8) k/uL Monocytes # 0.2 (0-1.0) k/uL Eosinophils # 0.2 (0-0.7) k/uL Basophils # 0.0 (0-0.2) k/uL Hypochromasia Slight Poikilocytosis Slight Sodium 138 (137-145) mmol/L Potassium 4.2 (3.5-5.1) mmol/L Chloride 101 (98-107) mmol/L Carbon Dioxide 30 (22-30) mmol/L Anion Gap 7 mmol/L BUN 17 (7-17) mg/dL Creatinine 0.66 (0.52-1.04) mg/dL Est GFR (CKD-EPI)AfAm >90 (>60 ml/min/1.73 sqM) Est GFR (CKD-EPI)NonAf >90 (>60 ml/min/1.73 sqM) Glucose 423 H (74-99) mg/dL POC Glucose (mg/dL) (75-99) mg/dL POC Glu Television Mechanic ID Calcium 9.0 (8.4-10.2) mg/dL Total Bilirubin 0.3 (0.2-1.3) mg/dL AST 20 (14-36) U/L ALT 20 (9-52) U/L Alkaline Phosphatase 91 (38-126) U/L Total Protein 6.3 (6.3-8.2) g/dL Albumin 3.4 L (3.5-5.0) g/dL Amylase 41 (30-110) U/L Lipase 284 (23-300) U/L Urine Color Yellow Urine Appearance Clear (Clear) Urine pH 5.5 (5.0-8.0) Ur Specific [place] 1.033 (1.001-1.035) Urine Protein Negative (Negative) Urine Glucose (UA) 4+ H (Negative) Urine Ketones Negative (Negative) Urine Blood Negative (Negative) Urine Nitrite Negative (Negative) Urine Bilirubin Negative (Negative) Urine Urobilinogen <2.0 (<2.0) mg/dL Ur Leukocyte Esterase Negative (Negative) Acetone, Qual Negative (Negative) 10/24/18 10/24/18 10/24/18 Range/Units 09:38 10:38 11:32 WBC (3.8-10.6) k/uL RBC (3.80-5.40) m/uL Hgb (11.4-16.0) gm/dL Hct (34.0-46.0) % MCV (80.0-100.0) fL MCH (25.0-35.0) pg MCHC (31.0-37.0) g/dL RDW (11.5-15.5) % Plt Count (150-450) k/uL Neutrophils % % Lymphocytes % % Monocytes % % Eosinophils % % Basophils % % Neutrophils # (1.3-7.7) k/uL Lymphocytes # (1.0-4.8) k/uL Monocytes # (0-1.0) k/uL Eosinophils # (0-0.7) k/uL Basophils # (0-0.2) k/uL Hypochromasia Poikilocytosis Sodium (137-145) mmol/L Potassium (3.5-5.1) mmol/L Chloride (98-107) mmol/L Carbon Dioxide (22-30) mmol/L Anion Gap mmol/L BUN (7-17) mg/dL Creatinine (0.52-1.04) mg/dL Est GFR (CKD-EPI)AfAm (>60 ml/min/1.73 sqM) Est GFR (CKD-EPI)NonAf (>60 ml/min/1.73 sqM) Glucose (74-99) mg/dL POC Glucose (mg/dL) 417 H 392 H 346 H (75-99) mg/dL POC Glu Television Mechanic Nedra Toussaint, Valente Vieira Calcium (8.4-10.2) mg/dL Total Bilirubin (0.2-1.3) mg/dL AST (14-36) U/L ALT (9-52) U/L Alkaline Phosphatase (38-126) U/L Total Protein (6.3-8.2) g/dL Albumin (3.5-5.0) g/dL Amylase (30-110) U/L Lipase (23-300) U/L Urine Color Urine Appearance (Clear) Urine pH (5.0-8.0) Ur Specific [place] (1.001-1.035) Urine Protein (Negative) Urine Glucose (UA) (Negative) Urine Ketones (Negative) Urine Blood (Negative) Urine Nitrite (Negative) Urine Bilirubin (Negative) Urine Urobilinogen (<2.0) mg/dL Ur Leukocyte Esterase (Negative) Acetone, Qual (Negative) 10/24/18 10/24/18 10/24/18 Range/Units 12:42 13:47 14:11 WBC (3.8-10.6) k/uL RBC (3.80-5.40) m/uL Hgb (11.4-16.0) gm/dL Hct (34.0-46.0) % MCV (80.0-100.0) fL MCH (25.0-35.0) pg MCHC (31.0-37.0) g/dL RDW (11.5-15.5) % Plt Count (150-450) k/uL Neutrophils % % Lymphocytes % % Monocytes % % Eosinophils % % Basophils % % Neutrophils # (1.3-7.7) k/uL Lymphocytes # (1.0-4.8) k/uL Monocytes # (0-1.0) k/uL Eosinophils # (0-0.7) k/uL Basophils # (0-0.2) k/uL Hypochromasia Poikilocytosis Sodium (137-145) mmol/L Potassium (3.5-5.1) mmol/L Chloride (98-107) mmol/L Carbon Dioxide (22-30) mmol/L Anion Gap mmol/L BUN (7-17) mg/dL Creatinine (0.52-1.04) mg/dL Est GFR (CKD-EPI)AfAm (>60 ml/min/1.73 sqM) Est GFR (CKD-EPI)NonAf (>60 ml/min/1.73 sqM) Glucose (74-99) mg/dL POC Glucose (mg/dL) 350 H 338 H 280 H (75-99) mg/dL POC Glu Television Mechanic Annette Almendarez John Murphy, Daniel Calcium (8.4-10.2) mg/dL Total Bilirubin (0.2-1.3) mg/dL AST (14-36) U/L ALT (9-52) U/L Alkaline Phosphatase (38-126) U/L Total Protein (6.3-8.2) g/dL Albumin (3.5-5.0) g/dL Amylase (30-110) U/L Lipase (23-300) U/L Urine Color Urine Appearance (Clear) Urine pH (5.0-8.0) Ur Specific [place] (1.001-1.035) Urine Protein (Negative) Urine Glucose (UA) (Negative) Urine Ketones (Negative) Urine Blood (Negative) Urine Nitrite (Negative) Urine Bilirubin (Negative) Urine Urobilinogen (<2.0) mg/dL Ur Leukocyte Esterase (Negative) Acetone, Qual (Negative) Disposition Clinical Impression: Hyperglycemia Disposition: HOME SELF-CARE Condition: Good Instructions (If sedation given, give patient instructions): Diabetic Hyperglycemia (ED) Additional Instructions: Patient advised to have close follow-up with primary care physician. Continue to dose insulin as prescribed. Advised to go to your wound care clinic appointment at this time. Is patient prescribed a controlled substance at d/c from ED?: No Referrals: Lilibeth Seymour MD [Primary Care Provider] - 1-2 days Time of Disposition: 14:21
[2018-10-24 09:40] LABS: Glucose,Whole Blood 417 mg/dL (75-99)
[2018-10-24 09:44] LABS: Basophils % (A) 1 %; Eosinophils # (A) 0.2 k/uL (0-0.7); Eosinophils % (A) 5 %; HCT 37.2 % (34.0-46.0); HGB 11.7 gm/dL (11.4-16.0); Hypochromasia Slight; Lymphocytes # (A) 0.7 k/uL (1.0-4.8); Lymphocytes % (A) 18 %; MCH 27.5 pg (25.0-35.0); MCHC 31.6 g/dL (31.0-37.0); MCV 87.1 fL (80.0-100.0); Mean Platelet Volume 8.6; Monocytes # (A) 0.2 k/uL (0-1.0); Monocytes % (A) 5 %; Neutrophils # (A) 2.8 k/uL (1.3-7.7); Neutrophils % (A) 70 %; Poikilocytosis Slight; RBC 4.27 m/uL (3.80-5.40); RDW 15.9 % (11.5-15.5); WBC 4.1 k/uL (3.8-10.6)
[2018-10-24 09:51] LABS: ALT 20 U/L (9-52); AST 20 U/L (14-36); African American GFR (CKD) >90 (>60 ml/min/1.73 sqM); Albumin 3.4 g/dL (3.5-5.0); Alkaline Phosphatase 91 U/L (38-126); Amylase 41 U/L (30-110); Anion Gap 7 mmol/L; Blood Urea Nitrogen 17 mg/dL (7-17); Carbon Dioxide 30 mmol/L (22-30); Chloride 101 mmol/L (98-107); Glucose 423 mg/dL (74-99); Potassium 4.2 mmol/L (3.5-5.1); Sodium 138 mmol/L (137-145); Total Bilirubin 0.3 mg/dL (0.2-1.3); Total Protein 6.3 g/dL (6.3-8.2)
[2018-10-24 09:52] LABS: Platelet Count 70 k/uL (150-450)
[2018-10-24] MEDS ORDERED: INSULIN REGULAR 100 UNIT in SODIUM CHLORIDE 0.9% 100 ML IV SCH (10:00)
[2018-10-24] MEDS ORDERED: INSULIN REGULAR BOLUS (FROM DRIP BAG) IV ONE (10:00)
[2018-10-24 10:11] LABS: Appearance,Urine Clear (Clear); Bilirubin,Urine Negative (Negative); Blood,Urine Negative (Negative); Color,Urine Yellow; Glucose,Urine (UA) 4+ (Negative); Ketones,Urine Negative (Negative); Leukocyte Esterase,Urine Negative (Negative); Nitrite,Urine Negative (Negative); PH, Urine 5.5 (5.0-8.0); Protein,Urine Negative (Negative); Specific Gravity,Urine 1.033 (1.001-1.035); Urobilinogen,Urine <2.0 mg/dL (<2.0)
[2018-10-24 10:45] LABS: Glucose,Whole Blood 392 mg/dL (75-99)
[2018-10-24 11:33] LABS: Glucose,Whole Blood 346 mg/dL (75-99)
[2018-10-24] MEDS ORDERED: SODIUM CHLORIDE 0.9% 1,000 ML IV ONE (12:05)
[2018-10-24 12:44] LABS: Glucose,Whole Blood 350 mg/dL (75-99)
[2018-10-24 13:59] LABS: Glucose,Whole Blood 338 mg/dL (75-99)
[2018-10-24 14:12] LABS: Glucose,Whole Blood 280 mg/dL (75-99)
[2018-10-24 14:46] VITALS: BP 135/75; PULSE 80; TEMP 98.1
== END 2018-10-24 14:45 | disposition home or self-care (01) ==
LOC: EC 08:40
DX: E11.65 Type 2 diabetes mellitus with hyperglycemia (principal); R53.83 Other fatigue; J44.9 Chronic obstructive pulmonary disease, unspecified; E78.5 Hyperlipidemia, unspecified; H40.9 Unspecified glaucoma; M19.90 Unspecified osteoarthritis, unspecified site; G47.30 Sleep apnea, unspecified; Z99.89 Dependence on other enabling machines and devices; F31.9 Bipolar disorder, unspecified; F41.9 Anxiety disorder, unspecified; Z85.41 Personal history of malignant neoplasm of cervix uteri; Z86.14 Personal history of Methicillin resistant Staphylococcus aureus infection; Z87.891 Personal history of nicotine dependence; Z79.4 Long term (current) use of insulin; Z79.82 Long term (current) use of aspirin; Z79.899 Other long term (current) drug therapy; Z88.0 Allergy status to penicillin; Z88.8 Allergy status to other drugs, medicaments and biological substances
CPT/HCPCS: 36415; 80053; 81003; 82009; 82150; 83690; 85025; 96360; 96361; 99285

== ENCOUNTER 2018-10-25 20:45 | Observation (INO) | payer OTHER ==
[2018-10-25 21:23] LABS: Glucose,Whole Blood 409 mg/dL (75-99)
[2018-10-25] MEDS ORDERED: SODIUM CHLORIDE 0.9% 500 ML 500 ML IV STA (21:34)
[2018-10-25] MEDS ORDERED: SODIUM CHLORIDE 0.9% 1,000 ML IV STA ×2 (21:34)
--- NOTE | 2018-10-25 22:21 | ED ---
Recheck HPI - General Chief Complaint: Recheck/Abnormal Lab/Rx Stated Complaint: Hyperglycemia Time Seen by Provider: 10/25/18 21:26 Source: patient, RN notes reviewed, old records reviewed Mode of arrival: wheelchair Limitations: no limitations - History of Present Illness Initial Comments: This is a 8-year-old female the ER for evaluation. Patient does say for evaluation regards to elevated blood sugar blood sugar control weakness not feeling well. Patient has history of diabetes long history of diabetes. Patient was seen her ER for similar symptoms yesterday, has not been feeling well for the last 2 days. Denies any fevers. No nausea vomiting or diarrhea no significant abdominal pain, just uncontrolled blood sugars. MD Complaint: abnormal lab (Elevated blood sugar) -: days(s) Returns Today for: Called Because of Abnormal Lab/Test (Patient checked blood sugar was significantly elevated) Symptoms Since Prior Visit: no new symptoms Context: called for abnormal lab result Associated Symptoms: malaise, nausea - Related Data Home Medications Medication Instructions Recorded Confirmed metFORMIN HCL [Glucophage] 850 mg PO BID 02/18/14 10/25/18 Aspirin EC [Ecotrin Low Dose] 81 mg PO DAILY 04/08/18 10/25/18 Cetirizine HCl [Zyrtec] 10 mg PO DAILY 04/08/18 10/25/18 Insulin Glargine,Hum.rec.anlog 80 unit SQ HS 04/08/18 10/25/18 [Basaglar Kwikpen U-100] Insulin Glargine,Hum.rec.anlog 100 unit SQ QAM 04/08/18 10/25/18 [Basaglar Kwikpen U-100] Simvastatin [Zocor] 40 mg PO HS 04/08/18 10/25/18 Triamterene/Hydrochlorothiazid 1 tab PO BID@1000,1400 04/08/18 10/25/18 [Maxzide 37.5-25] HYDROcodone/APAP 10-325MG [[place] 1 tab PO Q8H PRN 06/05/18 10/25/18 10-325] Insulin Detemir (Levemir) [Levemir] 35 unit SQ TID-W/MEALS 07/04/18 10/25/18 Nystatin 100,000 Unit/gm Powd 1 applic TOPICAL BID 07/04/18 10/25/18 [Mycostatin Powder] ARIPiprazole [Abilify] 5 mg PO HS 10/12/18 10/25/18 Venlafaxine HCl [Effexor XR] 225 mg PO DAILY 10/12/18 10/25/18 traZODone HCL [Desyrel] 100 mg PO HS 10/12/18 10/25/18 Previous Rx's Medication Instructions Recorded Cyclobenzaprine [Flexeril] 10 mg PO BID tab 02/16/18 Pregabalin [Lyrica] 75 mg PO BID cap 02/16/18 Levothyroxine Sodium [Synthroid] 100 mcg PO DAILY@0630 tab 04/11/18 Allergies Allergy/AdvReac Type Severity Reaction Status Date / Time meropenem Allergy Itching Verified 10/25/18 21:20 Penicillins Allergy Anaphylaxis Verified 10/25/18 21:20 Review of Systems ROS Statement: Those systems with pertinent positive or pertinent negative responses have been documented in the HPI. ROS Other: All systems not noted in ROS Statement are negative. Past Medical History Past Medical History: Asthma, Cancer, COPD, Diabetes Mellitus, Eye Disorder, Hyperlipidemia, Liver Disease, Musculoskeletal Disorder, Neurologic Disorder, Osteoarthritis (OA), Sleep Apnea/CPAP/BIPAP, Thyroid Disorder Additional Past Medical History / Comment(s): History of osteomyelitis left #3 toe and left calf: 2004. cervical cancer (in remission.) Wound vac. Cirrhosis of the liver r/t diabetes - sees Dr. Barraza, History of Any Multi-Drug Resistant Organisms: MRSA Date of last positivie culture/infection: 03/20/17 MDRO Source:: MRSA HEEL Past Surgical History: Section, Cholecystectomy, Hysterectomy, Orthopedic Surgery, Tonsillectomy, Tubal Ligation Additional Past Surgical History / Comment(s): Cataracts and laser surgery for glaucoma. Multiple I&D to left foot and lower leg. Past Anesthesia/Blood Transfusion Reactions: No Reported Reaction Past Psychological History: Anxiety, Bipolar, Depression Smoking Status: Former smoker Past Alcohol Use History: None Reported Past Drug Use History: Marijuana - Past Family History Father Family Medical History: Congestive Heart Failure (CHF), Coronary Artery Disease (CAD), Myocardial Infarction ([place]) Mother Family Medical History: Coronary Artery Disease (CAD), CVA/TIA, Dementia, Phillip cardial Infarction ([place]) General Exam Limitations: no limitations General appearance: alert, in no apparent distress, obese Head exam: Present: atraumatic, normocephalic, normal inspection Eye exam: Present: normal appearance, PERRL, EOMI. Absent: scleral icterus, conjunctival injection, periorbital swelling ENT exam: Present: normal exam, mucous membranes moist Neck exam: Present: normal inspection. Absent: tenderness, meningismus, lymphadenopathy Respiratory exam: Present: normal lung sounds bilaterally. Absent: respiratory distress, wheezes, rales, rhonchi, stridor Cardiovascular Exam: Present: regular rate, normal rhythm, normal heart sounds. Absent: systolic murmur, diastolic murmur, rubs, gallop, clicks GI/Abdominal exam: Present: soft, normal bowel sounds. Absent: distended, tenderness, guarding, rebound, rigid Extremities exam: Present: normal inspection, full ROM, normal capillary refill. Absent: tenderness, pedal edema, joint swelling, calf tenderness Back exam: Present: normal inspection Neurological exam: Present: alert, oriented X3, CN II-XII intact Psychiatric exam: Present: normal affect, normal mood Skin exam: Present: warm, dry, intact, normal color. Absent: rash Course Vital Signs 10/25/18 10/25/18 21:08 22:55 Temperature 98.2 F 99 F Pulse Rate 81 82 Respiratory 20 20 Rate Blood Pressure 139/65 149/84 O2 Sat by Pulse 94 L 94 L Oximetry - Reevaluation(s) Reevaluation #1: 10/25/18 23:31 Medical record and ER visit from yesterday are reviewed Reevaluation #2: 10/25/18 23:31 Patient has no real improvement here in the ER so not feeling well Medical Decision Making - Medical Decision Making 62 female the ER for evaluation, patient has uncontrolled blood sugars will admit for diabetic counseling blood sugar control - Lab Data Result diagrams: 10/25/18 21:52 10/25/18 21:52 Lab Results 10/25/18 10/25/18 10/25/18 Range/Units 21:20 21:44 21:52 WBC (3.8-10.6) k/uL RBC (3.80-5.40) m/uL Hgb (11.4-16.0) gm/dL Hct (34.0-46.0) % MCV (80.0-100.0) fL MCH (25.0-35.0) pg MCHC (31.0-37.0) g/dL RDW (11.5-15.5) % Hypochromasia Sodium 138 (137-145) mmol/L Potassium 4.4 (3.5-5.1) mmol/L Chloride 103 (98-107) mmol/L Carbon Dioxide 25 (22-30) mmol/L Anion Gap 10 mmol/L BUN 15 (7-17) mg/dL Creatinine 0.64 (0.52-1.04) mg/dL Est GFR (CKD-EPI)AfAm >90 (>60 ml/min/1.73 sqM) Est GFR (CKD-EPI)NonAf >90 (>60 ml/min/1.73 sqM) Glucose 378 H (74-99) mg/dL POC Glucose (mg/dL) 409 H (75-99) mg/dL POC Glu Film Writer ID Delmy Brown Calcium 9.0 (8.4-10.2) mg/dL Phosphorus 3.5 (2.5-4.5) mg/dL Magnesium 1.7 (1.6-2.3) mg/dL Total Bilirubin 0.4 (0.2-1.3) mg/dL AST 22 (14-36) U/L ALT 14 (9-52) U/L Alkaline Phosphatase 99 (38-126) U/L Troponin I (0.000-0.034) ng/mL Total Protein 6.7 (6.3-8.2) g/dL Albumin 3.7 (3.5-5.0) g/dL Urine Color Light Yellow Urine Appearance Clear (Clear) Urine pH 6.0 (5.0-8.0) Ur Specific [place] 1.025 (1.001-1.035) Urine Protein Negative (Negative) Urine Glucose (UA) 4+ H (Negative) Urine Ketones Negative (Negative) Urine Blood Negative (Negative) Urine Nitrite Negative (Negative) Urine Bilirubin Negative (Negative) Urine Urobilinogen <2.0 (<2.0) mg/dL Ur Leukocyte Esterase Negative (Negative) 10/25/18 10/25/18 Range/Units 21:52 21:52 WBC 5.7 (3.8-10.6) k/uL RBC 4.40 (3.80-5.40) m/uL Hgb 12.2 (11.4-16.0) gm/dL Hct 38.1 (34.0-46.0) % MCV 86.7 (80.0-100.0) fL MCH 27.7 (25.0-35.0) pg MCHC 31.9 (31.0-37.0) g/dL RDW 15.5 (11.5-15.5) % Hypochromasia Slight Sodium (137-145) mmol/L Potassium (3.5-5.1) mmol/L Chloride (98-107) mmol/L Carbon Dioxide (22-30) mmol/L Anion Gap mmol/L BUN (7-17) mg/dL Creatinine (0.52-1.04) mg/dL Est GFR (CKD-EPI)AfAm (>60 ml/min/1.73 sqM) Est GFR (CKD-EPI)NonAf (>60 ml/min/1.73 sqM) Glucose (74-99) mg/dL POC Glucose (mg/dL) (75-99) mg/dL POC Glu Film Writer ID Calcium (8.4-10.2) mg/dL Phosphorus (2.5-4.5) mg/dL Magnesium (1.6-2.3) mg/dL Total Bilirubin (0.2-1.3) mg/dL AST (14-36) U/L ALT (9-52) U/L Alkaline Phosphatase (38-126) U/L Troponin I <0.012 (0.000-0.034) ng/mL Total Protein (6.3-8.2) g/dL Albumin (3.5-5.0) g/dL Urine Color Urine Appearance (Clear) Urine pH (5.0-8.0) Ur Specific [place] (1.001-1.035) Urine Protein (Negative) Urine Glucose (UA) (Negative) Urine Ketones (Negative) Urine Blood (Negative) Urine Nitrite (Negative) Urine Bilirubin (Negative) Urine Urobilinogen (<2.0) mg/dL Ur Leukocyte Esterase (Negative) - EKG Data -: EKG Interpreted by Me (EKG shows normal sinus rhythm rate of 76, [place] 170, QRS 70, QTc 443) Disposition Clinical Impression: Weakness generalized, Dizziness, Diabetes mellitus, Hyperglycemia due to type 1 diabetes mellitus, Dehydration Disposition: ADMITTED IP TO THIS HOSP Condition: Good Is patient prescribed a controlled substance at d/c from ED?: No Referrals: Lilibeth Seymour MD [Primary Care Provider] - 1-2 days
[2018-10-25 22:29] LABS: Appearance,Urine Clear (Clear); Bilirubin,Urine Negative (Negative); Blood,Urine Negative (Negative); Color,Urine Light Yellow; Glucose,Urine (UA) 4+ (Negative); Ketones,Urine Negative (Negative); Leukocyte Esterase,Urine Negative (Negative); Nitrite,Urine Negative (Negative); Protein,Urine Negative (Negative); Specific Gravity,Urine 1.025 (1.001-1.035); Urobilinogen,Urine <2.0 mg/dL (<2.0)
[2018-10-25 22:36] LABS: Basophils % (A) 1 %; Eosinophils # (A) 0.3 k/uL (0-0.7); Eosinophils % (A) 5 %; HCT 38.1 % (34.0-46.0); HGB 12.2 gm/dL (11.4-16.0); Hypochromasia Slight; Lymphocytes # (A) 1.1 k/uL (1.0-4.8); Lymphocytes % (A) 19 %; MCH 27.7 pg (25.0-35.0); MCHC 31.9 g/dL (31.0-37.0); MCV 86.7 fL (80.0-100.0); Mean Platelet Volume 8.8; Monocytes # (A) 0.3 k/uL (0-1.0); Monocytes % (A) 5 %; Neutrophils % (A) 69 %; RDW 15.5 % (11.5-15.5); WBC 5.7 k/uL (3.8-10.6)
[2018-10-25 22:51] LABS: ALT 14 U/L (9-52); AST 22 U/L (14-36); African American GFR (CKD) >90 (>60 ml/min/1.73 sqM); Albumin 3.7 g/dL (3.5-5.0); Alkaline Phosphatase 99 U/L (38-126); Anion Gap 10 mmol/L; Blood Urea Nitrogen 15 mg/dL (7-17); Carbon Dioxide 25 mmol/L (22-30); Chloride 103 mmol/L (98-107); Glucose 378 mg/dL (74-99); Magnesium 1.7 mg/dL (1.6-2.3); Phosphorus 3.5 mg/dL (2.5-4.5); Potassium 4.4 mmol/L (3.5-5.1); Sodium 138 mmol/L (137-145); Total Bilirubin 0.4 mg/dL (0.2-1.3); Total Protein 6.7 g/dL (6.3-8.2)
[2018-10-25] MEDS ORDERED: INSULIN REGULAR 100 UNIT/ML VIAL SQ ONE (23:29)
[2018-10-25] MEDS ORDERED: INSULIN REGULAR 100 UNIT/ML VIAL IV ONE (23:29)
[2018-10-25 23:40] LABS: Platelet Count 78 k/uL (150-450)
[2018-10-26 00:04] LABS: Glucose,Whole Blood 320 mg/dL (75-99)
[2018-10-26] MEDS ORDERED: INSULIN REGULAR 100 UNIT/ML VIAL SQ ONE (00:04)
[2018-10-26 07:17] LABS: Glucose,Whole Blood 197 mg/dL (75-99)
[2018-10-26] MEDS: INSULIN DETEMIR (LEVEMIR) 100 UNIT/ML SYR SQ SCH (09:29)
[2018-10-26] MEDS: INSULIN ASPART (NovoLOG) 100 UNIT/ML VIAL SQ SCH ×5 (09:29→17:26)
[2018-10-26] MEDS: NYSTATIN 100,000 UNIT/GM POWD 15 GM TOPICAL SCH ×2 (09:30→21:21)
[2018-10-26] MEDS: LORATADINE 10 MG TAB PO SCH (09:30)
[2018-10-26] MEDS: TRIAMTERENE-HCTZ 37.5-25MG 1 EACH TAB PO SCH ×2 (09:31→15:09)
[2018-10-26] MEDS: ASPIRIN 81 MG PO SCH (09:31)
[2018-10-26] MEDS: metFORMIN 850 MG TAB PO SCH ×2 (09:31→17:26)
[2018-10-26] MEDS: CYCLOBENZAPRINE 10 MG TAB PO SCH ×2 (09:31→21:19)
[2018-10-26] MEDS: PREGABALIN 75 MG CAP PO SCH ×2 (09:31→21:19)
[2018-10-26] MEDS: VENLAFAXINE HCL ER 75 MG CAP PO SCH (11:22)
[2018-10-26 12:16] LABS: Glucose,Whole Blood 304 mg/dL (75-99)
[2018-10-26] MEDS: DOCUSATE 100 MG CAP PO SCH ×2 (15:10→21:19)
[2018-10-26 17:10] LABS: Glucose,Whole Blood 123 mg/dL (75-99)
--- NOTE | 2018-10-26 20:09 | P.HPIM ---
History of Present Illness H&P Date: 10/26/18 Patient is a 62-year-old female who presented to [facility] emergency room due to uncontrollable glucose level patient sugar level has been around 400-500 she was seen in the emergency room on the day before she was treated and was discharged home she has not been able to get her sugar under control. At home patient was maintained on Basaglar 100 units in the morning and 80 units at night she was supposed to be on a fast acting insulin NovoLog 35 units at mealtimes, however apparently patient has been taking a longer acting insulin Levemir 35 units with each meal her glucose level was staying elevated she was evaluated repeatedly in the emergency room and then decision was made to proceed was admitting her for further evaluation. Patient has a nonhealing ulcer on her right heel she has a boot on. Otherwise she denies any complaints at this time there is no fever or chills no headache or dizziness no chest pain no shortness of breath no cough no nausea or vomiting no abdominal pain no diarrhea and no urinary symptoms Past Medical History Past Medical History: Asthma, Cancer, COPD, Diabetes Mellitus, Eye Disorder, Hyperlipidemia, Liver Disease, Musculoskeletal Disorder, Neurologic Disorder, Osteoarthritis (OA), Sleep Apnea/CPAP/BIPAP, Thyroid Disorder Additional Past Medical History / Comment(s): History of osteomyelitis left #3 toe and left calf: 2004. cervical cancer (in remission.) Cirrhosis of the liver r/t diabetes - sees Dr. Barraza, History of Any Multi-Drug Resistant Organisms: MRSA Date of last positivie culture/infection: 03/20/17 MDRO Source:: MRSA HEEL Past Surgical History: Section, Cholecystectomy, Hysterectomy, Orthopedic Surgery, Tonsillectomy, Tubal Ligation Additional Past Surgical History / Comment(s): Cataracts and laser surgery for glaucoma. Multiple I&D to left foot and lower leg. Past Anesthesia/Blood Transfusion Reactions: No Reported Reaction Past Psychological History: Anxiety, Bipolar, Depression Additional Psychological History / Comment(s): Lives in an apartment with her 3 children. Reformed smoker. Denies alcohol use. Medically disabled. No experience. No international travel. No animals in the home. Relates that bedbug infestation has been cleared up Smoking Status: Former smoker Past Alcohol Use History: None Reported Additional Past Alcohol Use History / Comment(s): Patient was a smoker of 2 packs per day for 21 years and quit in 1992. She does use marijuana on occasional basis. She denies any medical marijuana card. She denies any alcoho l use or abuse. She is currently living at home and one adult son is living with her. She has been on disability. She is mostly wheelchair bound when out. walker at home. Medically disabled. No international travel. No animals in the home. Past Drug Use History: Marijuana - Past Family History Father Family Medical History: Congestive Heart Failure (CHF), Coronary Artery Disease (CAD), Myocardial Infarction ([place]) Mother Family Medical History: Coronary Artery Disease (CAD), CVA/TIA, Dementia, Myocardial Infarction ([place]) Medications and Allergies Home Medications Medication Instructions Recorded Confirmed Type metFORMIN HCL [Glucophage] 850 mg PO BID 02/18/14 10/25/18 History Cyclobenzaprine [Flexeril] 10 mg PO BID tab 02/16/18 10/25/18 Rx Pregabalin [Lyrica] 75 mg PO BID cap 02/16/18 10/25/18 Rx Aspirin EC [Ecotrin Low Dose] 81 mg PO DAILY 04/08/18 10/25/18 History Cetirizine HCl [Zyrtec] 10 mg PO DAILY 04/08/18 10/25/18 History Insulin Glargine,Hum.rec.anlog 80 unit SQ HS 04/08/18 10/25/18 History [Basaglar Kwikpen U-100] Insulin Glargine,Hum.rec.anlog 100 unit SQ QAM 04/08/18 10/25/18 History [Basaglar Kwikpen U-100] Simvastatin [Zocor] 40 mg PO HS 04/08/18 10/25/18 History Triamterene/Hydrochlorothiazid 1 tab PO BID@1000,1400 04/08/18 10/25/18 History [Maxzide 37.5-25] Levothyroxine Sodium [Synthroid] 100 mcg PO DAILY@0630 tab 04/11/18 10/25/18 Rx HYDROcodone/APAP 10-325MG [[place] 1 tab PO Q8H PRN 06/05/18 10/25/18 History 10-325] Insulin Detemir (Levemir) [Levemir] 35 unit SQ TID-W/MEALS 07/04/18 10/25/18 History Nystatin 100,000 Unit/gm Powd 1 applic TOPICAL BID 07/04/18 10/25/18 History [Mycostatin Powder] ARIPiprazole [Abilify] 5 mg PO HS 10/12/18 10/25/18 History Venlafaxine HCl [Effexor XR] 225 mg PO DAILY 10/12/18 10/25/18 History traZODone HCL [Desyrel] 100 mg PO HS 10/12/18 10/25/18 History Allergies Allergy/AdvReac Type Severity Reaction Status Date / Time meropenem Allergy Itching Verified 10/25/18 21:20 Penicillins Allergy Anaphylaxis Verified 10/25/18 21:20 Physical Exam Vitals: Vital Signs Temp Pulse Pulse Resp BP BP Pulse Ox 10/26/18 16:00 86 15 10/26/18 15:00 98.7 F 86 15 110/66 96 10/26/18 07:23 81 14 10/26/18 07:00 98.8 F 81 14 109/67 95 10/26/18 00:36 98.0 F 79 17 133/69 95 10/26/18 00:11 98.6 F 74 18 158/91 97 10/25/18 22:55 99 F 82 20 149/84 94 L 10/25/18 21:08 98.2 F 81 20 139/65 94 L Intake and Output 10/26/18 10/26/18 10/26/18 06:59 14:59 22:59 Other: Voiding Method Toilet Toilet # Voids 1 3 # Bowel Movements 1 In general patient is alert and oriented 3 in no apparent distress HEENT head normocephalic and atraumatic Neck is supple no JVD no goiter no lymphadenopathy Chest exam reveals a few scattered rhonchi bilaterally no wheezing Cardiac exam reveals regular heart sounds S1 and S2 no gallops no murmurs Abdomen is soft nontender no organomegaly with normal bowel sounds Extremity exam reveals no edema no cyanosis or clubbing right lower extremity has a boot on Neurological examination reveals no gross focal deficit Results CBC & Chem 7: 10/25/18 21:52 10/25/18 21:52 Labs: Abnormal Lab Results - Last 24 Hours (Table) 10/25/18 10/25/18 10/25/18 Range/Units 21:20 21:44 21:52 Plt Count (150-450) k/uL Glucose 378 H (74-99) mg/dL POC Glucose (mg/dL) 409 H (75-99) mg/dL Urine Glucose (UA) 4+ H (Negative) 10/25/18 10/26/18 10/26/18 Range/Units 21:52 00:01 07:03 Plt Count 78 L (150-450) k/uL Glucose (74-99) mg/dL POC Glucose (mg/dL) 320 H 197 H (75-99) mg/dL Urine Glucose (UA) (Negative) 10/26/18 10/26/18 Range/Units 11:37 16:41 Plt Count (150-450) k/uL Glucose (74-99) mg/dL POC Glucose (mg/dL) 304 H 123 H (75-99) mg/dL Urine Glucose (UA) (Negative) Microbiology - Last 24 Hours (Table) 10/25/18 21:44 Urine Culture - Preliminary Urine,Voided Thrombosis Risk Factor Assmnt - Choose All That Apply Any of the Below Risk Factors Present?: Yes Each Factor Represents 1 point: Abnormal pulmonary function (COPD), Age 41-60 years, Obesity (BMI >25) Thrombosis Risk Factor Assessment Total Risk Factor Score: 3 Thrombosis Risk Factor Assessment Level: Moderate Risk Assessment and Plan Plan: #1 severely elevated glucose level was inability to control glucose at home and as outpatient #2 underlying history of insulin-dependent diabetes mellitus with severe insulin resistance patient is on about 300 units of insulin daily #3 confusion with insulin at home, apparently patient has been taking 2 kinds of long-acting insulin and no short-acting insulin #4 right heel ulcer with cellulitis followed at the wound care clinic #5 underlying history of hypertension #6 underlying history of hyperlipidemia #7 underlying history of hypothyroidism #8 underlying history of depression At this time patient medication were reorder she was restarted on NovoLog 35 units before each meal and Levemir 100 units in the morning and 8 units in the evening Sliding scale was also added Will monitor glucose level and adjust medications as needed
[2018-10-26 20:38] LABS: Glucose,Whole Blood 63 mg/dL (75-99)
[2018-10-26] MEDS ORDERED: ATORVASTATIN 20 MG TAB PO SCH (21:00)
[2018-10-26] MEDS ORDERED: ARIPiprazole 5 MG TAB PO SCH (21:00)
[2018-10-26] MEDS ORDERED: INSULIN DETEMIR (LEVEMIR) 100 UNIT/ML SYR SQ SCH (21:00)
[2018-10-26] MEDS ORDERED: traZODone HCL 100 MG TAB PO SCH (21:00)
[2018-10-26 21:02] LABS: Glucose,Whole Blood 85 mg/dL (75-99)
[2018-10-27] MEDS: HYDROcodone/APAP 10-325MG 1 EACH TAB PO PRN ×2 (03:46→09:47)
[2018-10-27] MEDS ORDERED: LEVOTHYROXINE 100 MCG TAB PO SCH (06:30)
[2018-10-27 07:09] LABS: Glucose,Whole Blood 138 mg/dL (75-99)
[2018-10-27] MEDS: INSULIN ASPART (NovoLOG) 100 UNIT/ML VIAL SQ SCH ×4 (09:41→12:49)
[2018-10-27] MEDS: CYCLOBENZAPRINE 10 MG TAB PO SCH (09:41)
[2018-10-27] MEDS: TRIAMTERENE-HCTZ 37.5-25MG 1 EACH TAB PO SCH (09:41)
[2018-10-27] MEDS: VENLAFAXINE HCL ER 75 MG CAP PO SCH (09:42)
[2018-10-27] MEDS: DOCUSATE 100 MG CAP PO SCH (09:43)
[2018-10-27] MEDS: NYSTATIN 100,000 UNIT/GM POWD 15 GM TOPICAL SCH (09:43)
[2018-10-27] MEDS: LORATADINE 10 MG TAB PO SCH (09:43)
[2018-10-27] MEDS: PREGABALIN 75 MG CAP PO SCH (09:43)
[2018-10-27] MEDS: metFORMIN 850 MG TAB PO SCH (09:43)
[2018-10-27] MEDS: INSULIN DETEMIR (LEVEMIR) 100 UNIT/ML SYR SQ SCH (09:43)
[2018-10-27] MEDS: ASPIRIN 81 MG PO SCH (09:43)
[2018-10-27 09:52] VITALS: BP 130/74; PULSE 72; RESP 16; TEMP 97.6
[2018-10-27 11:30] LABS: Glucose,Whole Blood 209 mg/dL (75-99)
--- NOTE | 2018-10-27 11:51 | P.DS ---
Providers Date of admission: 10/25/18 23:30 Expected date of discharge: 10/27/18 Attending physician: Lilibeth Seymour Primary care physician: Lilibeth Seymour [place] Hospital Course: Diagnoses on discharge: #1 severely elevated glucose level was inability to control glucose at home and as outpatient #2 underlying history of insulin-dependent diabetes mellitus with severe insulin resistance patient is on about 300 units of insulin daily #3 confusion with insulin at home, apparently patient has been taking 2 kinds of long-acting insulin and no short-acting insulin #4 right heel ulcer with cellulitis followed at the wound care clinic #5 underlying history of hypertension #6 underlying history of hyperlipidemia #7 underlying history of hypothyroidism #8 underlying history of depression Hospital course: Patient is a 62-year-old female who presented to [facility] emergency room due to uncontrollable glucose level patient sugar level has been around 400-500 she was seen in the emergency room on the day before she was treated and was discharged home she has not been able to get her sugar under control. At home patient was maintained on Basaglar 100 units in the morning and 80 units at night she was supposed to be on a fast acting insulin NovoLog 35 units at mealtimes, however apparently patient has been taking a longer acting insulin Levemir 35 units with each meal her glucose level was staying elevated she was evaluated repeatedly in the emergency room and then decision was made to proceed was admitting her for further evaluation. Patient has a nonhealing ulcer on her right heel she has a boot on. Otherwise she denies any complaints at this time there is no fever or chills no headache or dizziness no chest pain no shortness of breath no cough no nausea or vomiting no abdominal pain no diarrhea and no urinary symptoms. Initially patient stated that she was on Basaglar 100 unit in the morning and 8 units in the evening and Levemir 35 units 3 times a day before meals however when her son brought in her insulin she was taking Basaglar 100 unit in the morning and 8 units in the evening and Admelog 35 units before each meal. Which is the correct regimen for her. She was counseled in length in regards to diet and exercise, she was counseled about taking insulin regularly and not missing any dosages. She was also given a sliding scale to be used on top of her 35 units before each meal. He was discharged home. She will be followed in our office in 1-2 days Patient Condition at Discharge: Good Plan - Discharge Summary New Discharge Prescriptions: New INSULIN ASPART (NovoLOG) [NovoLOG (formulary)] 35 unit SQ AC-TID vial INSULIN ASPART (NovoLOG) [NovoLOG (formulary)] 0 unit SQ AC-TID vial Continue metFORMIN HCL [Glucophage] 850 mg PO BID Cyclobenzaprine [Flexeril] 10 mg PO BID tab Pregabalin [Lyrica] 75 mg PO BID cap Triamterene/Hydrochlorothiazid [Maxzide 37.5-25] 1 tab PO BID@1000,1400 Aspirin EC [Ecotrin Low Dose] 81 mg PO DAILY Insulin Glargine,Hum.rec.anlog [Basaglar Kwikpen U-100] 80 unit SQ HS Insulin Glargine,Hum.rec.anlog [Basaglar Kwikpen U-100] 100 unit SQ QAM Simvastatin [Zocor] 40 mg PO HS Cetirizine HCl [Zyrtec] 10 mg PO DAILY Levothyroxine Sodium [Synthroid] 100 mcg PO DAILY@0630 tab HYDROcodone/APAP 10-325MG [[place] 10-325] 1 tab PO Q8H PRN PRN Reason: Pain Nystatin 100,000 Unit/gm Powd [Mycostatin Powder] 1 applic TOPICAL BID traZODone HCL [Desyrel] 100 mg PO HS Venlafaxine HCl [Effexor XR] 225 mg PO DAILY Discontinued Insulin Detemir (Levemir) [Levemir] 35 unit SQ TID-W/MEALS No Action ARIPiprazole [Abilify] 5 mg PO HS Discharge Medication List metFORMIN HCL [Glucophage] 850 mg PO BID 02/18/14 [History] Cyclobenzaprine [Flexeril] 10 mg PO BID tab 02/16/18 [Rx] Pregabalin [Lyrica] 75 mg PO BID cap 02/16/18 [Rx] Aspirin EC [Ecotrin Low Dose] 81 mg PO DAILY 04/08/18 [History] Cetirizine HCl [Zyrtec] 10 mg PO DAILY 04/08/18 [History] Insulin Glargine,Hum.rec.anlog [Basaglar Kwikpen U-100] 80 unit SQ HS 04/08/18 [History] Insulin Glargine,Hum.rec.anlog [Basaglar Kwikpen U-100] 100 unit SQ QAM 04/08/18 [History] Simvastatin [Zocor] 40 mg PO HS 04/08/18 [History] Triamterene/Hydrochlorothiazid [Maxzide 37.5-25] 1 tab PO BID@1000,1400 04/08/18 [History] Levothyroxine Sodium [Synthroid] 100 mcg PO DAILY@0630 tab 04/11/18 [Rx] HYDROcodone/APAP 10-325MG [[place] 10-325] 1 tab PO Q8H PRN 06/05/18 [History] Nystatin 100,000 Unit/gm Powd [Mycostatin Powder] 1 applic TOPICAL BID 07/04/18 [History] ARIPiprazole [Abilify] 5 mg PO HS 10/12/18 [History] Venlafaxine HCl [Effexor XR] 225 mg PO DAILY 10/12/18 [History] traZODone HCL [Desyrel] 100 mg PO HS 10/12/18 [History] INSULIN ASPART (NovoLOG) [NovoLOG (formulary)] 0 unit SQ AC-TID vial 10/27/18 [Rx] INSULIN ASPART (NovoLOG) [NovoLOG (formulary)] 35 unit SQ AC-TID vial 10/27/18 [Rx] Follow up Appointment(s)/Referral(s): Lilibeth Seymour MD [Primary Care Provider] - 1-2 days
== END 2018-10-27 14:48 | disposition home or self-care (01) ==
LOC: EC 20:45 → 4SSUR 23:30
PROVIDERS: ADMIT Internal Medicine; ATTEND Internal Medicine
DX: E10.65 Type 1 diabetes mellitus with hyperglycemia (principal); E10.621 Type 1 diabetes mellitus with foot ulcer; L97.419 Non-pressure chronic ulcer of right heel and midfoot with unspecified severity; L03.115 Cellulitis of right lower limb; E88.81 Metabolic syndrome and other insulin resistance; I10 Essential (primary) hypertension; E86.0 Dehydration; E78.5 Hyperlipidemia, unspecified; E03.9 Hypothyroidism, unspecified; J44.9 Chronic obstructive pulmonary disease, unspecified; G47.30 Sleep apnea, unspecified; H40.9 Unspecified glaucoma; M19.90 Unspecified osteoarthritis, unspecified site; K74.60 Unspecified cirrhosis of liver; F31.9 Bipolar disorder, unspecified; E66.9 Obesity, unspecified; Z68.42 Body mass index [BMI] 45.0-49.9, adult; F41.9 Anxiety disorder, unspecified; Z91.14 Patient's other noncompliance with medication regimen; Z79.82 Long term (current) use of aspirin; Z79.4 Long term (current) use of insulin; Z79.890 Hormone replacement therapy; Z79.899 Other long term (current) drug therapy; Z88.0 Allergy status to penicillin; Z88.1 Allergy status to other antibiotic agents; Z86.14 Personal history of Methicillin resistant Staphylococcus aureus infection; Z99.89 Dependence on other enabling machines and devices; Z90.49 Acquired absence of other specified parts of digestive tract; Z90.710 Acquired absence of both cervix and uterus; Z85.41 Personal history of malignant neoplasm of cervix uteri; Z87.39 Personal history of other diseases of the musculoskeletal system and connective tissue; Z87.891 Personal history of nicotine dependence; Z98.42 Cataract extraction status, left eye; Z98.41 Cataract extraction status, right eye; Z99.3 Dependence on wheelchair; Z82.49 Family history of ischemic heart disease and other diseases of the circulatory system; Z82.3 Family history of stroke; Z81.8 Family history of other mental and behavioral disorders
CPT/HCPCS: 96361 ×2; 96360; 99285; 36415; 93005; 80053; 82009; 83735; 84100; 84484; 85025; 81003; 87086; G0378 ×3

== ENCOUNTER 2018-11-05 12:51 | Emergency (ER) | payer OTHER ==
[2018-11-05 13:15] VITALS: RESP 18; TEMP 98
[2018-11-05 14:07] LABS: Glucose,Whole Blood 382 mg/dL (75-99)
[2018-11-05] MEDS ORDERED: SODIUM CHLORIDE 0.9% 500 ML 500 ML IV STA (14:32)
--- NOTE | 2018-11-05 14:36 | ED ---
General Adult HPI - General Chief complaint: Recheck/Abnormal Lab/Rx Stated complaint: HYPERGLYCEMIA Time Seen by Provider: 11/05/18 13:43 Source: patient, RN notes reviewed Mode of arrival: wheelchair Limitations: no limitations - History of Present Illness Initial comments: Patient is a pleasant 62-year-old female presenting to the emergency department from wound care center due to hyperglycemia. Patient states symptoms have been present for the past couple of weeks. Patient states the lowest her blood sugar has been was 288. Patient states several times glucometer has just read high. Patient complains of fatigue, polyuria, polydipsia. No fever. No new infection. Patient states wound care center is comfortable with the healing of her wound and did place her in a cast today. Patient states she sees Dr. Nielsen and Dr. Sequeira over there. No chest pain or dyspnea. No abdominal pain. No dysuria. - Related Data Home Medications Medication Instructions Recorded Confirmed metFORMIN HCL [Glucophage] 850 mg PO BID 02/18/14 11/05/18 Aspirin EC [Ecotrin Low Dose] 81 mg PO DAILY 04/08/18 11/05/18 Cetirizine HCl [Zyrtec] 10 mg PO DAILY 04/08/18 11/05/18 Insulin Glargine,Hum.rec.anlog 80 unit SQ HS 04/08/18 11/05/18 [Basaglar Kwikpen U-100] Insulin Glargine,Hum.rec.anlog 100 unit SQ QAM 04/08/18 11/05/18 [Basaglar Kwikpen U-100] Simvastatin [Zocor] 40 mg PO HS 04/08/18 11/05/18 Triamterene/Hydrochlorothiazid 1 tab PO BID@1000,1400 04/08/18 11/05/18 [Maxzide 37.5-25] HYDROcodone/APAP 10-325MG [[place] 1 tab PO Q8H PRN 06/05/18 11/05/18 10-325] Nystatin 100,000 Unit/gm Powd 1 applic TOPICAL BID 07/04/18 11/05/18 [Mycostatin Powder] ARIPiprazole [Abilify] 5 mg PO HS 10/12/18 11/05/18 Venlafaxine HCl [Effexor XR] 225 mg PO DAILY 10/12/18 11/05/18 traZODone HCL [Desyrel] 100 mg PO HS 10/12/18 11/05/18 Previous Rx's Medication Instructions Recorded Cyclobenzaprine [Flexeril] 10 mg PO BID tab 02/16/18 Pregabalin [Lyrica] 75 mg PO BID cap 02/16/18 Levothyroxine Sodium [Synthroid] 100 mcg PO DAILY@0630 tab 04/11/18 INSULIN ASPART (NovoLOG) [NovoLOG 35 unit SQ AC-TID vial 10/27/18 (formulary)] Allergies Allergy/AdvReac Type Severity Reaction Status Date / Time meropenem Allergy Itching Verified 11/05/18 14:05 Penicillins Allergy Anaphylaxis Verified 11/05/18 14:05 Review of Systems ROS Statement: Those systems with pertinent positive or pertinent negative responses have been documented in the HPI. ROS Other: All systems not noted in ROS Statement are negative. Constitutional: Denies: fever, chills Eyes: Denies: eye pain ENT: Denies: ear pain Respiratory: Denies: cough, dyspnea Cardiovascular: Denies: chest pain Endocrine: Reports: fatigue, polydipsia, polyuria Gastrointestinal: Denies: abdominal pain, vomiting Genitourinary: Denies: dysuria Musculoskeletal: Denies: back pain Skin: Denies: rash Neurological: Denies: weakness Past Medical History Past Medical History: Diabetes Mellitus Additional Past Medical History / Comment(s): History of osteomyelitis left #3 toe and left calf: 2004. cervical cancer (in remission.) Cirrhosis of the liver r/t diabetes - sees Dr. Barraza, History of Any Multi-Drug Resistant Organisms: MRSA Date of last positivie culture/infection: 03/20/17 MDRO Source:: MRSA HEEL Past Surgical History: Section, Cholecystectomy, Hysterectomy, Orthopedic Surgery, Tonsillectomy, Tubal Ligation Additional Past Surgical History / Comment(s): Cataracts and laser surgery for glaucoma. Multiple I&D to left foot and lower leg. Past Anesthesia/Blood Transfusion Reactions: No Reported Reaction Past Psychological History: Anxiety, Bipolar, Depression Smoking Status: Former smoker Past Alcohol Use History: None Reported Past Drug Use History: Marijuana - Past Family History Father Family Medical History: Congestive Heart Failure (CHF), Coronary Artery Disease (CAD), Myocardial Infarction ([place]) Mother Family Medical History: Coronary Artery Disease (CAD), CVA/TIA, Dementia, Myocardial Infarction ([place]) General Exam Limitations: no limitations General appearance: alert, in no apparent distress, obese Head exam: Present: atraumatic Eye exam: Present: normal appearance, PERRL ENT exam: Present: mucous membranes dry Neck exam: Present: normal inspection Respiratory exam: Present: normal lung sounds bilaterally Cardiovascular Exam: Present: regular rate, normal rhythm GI/Abdominal exam: Present: soft. Absent: tenderness Extremities exam: Present: other (Right lower leg and foot in cast.) Neurological exam: Present: alert. Absent: motor sensory deficit Psychiatric exam: Present: normal affect, normal mood Skin exam: Present: normal color Course Vital Signs 11/05/18 11/05/18 13:11 15:42 Temperature 98.0 F Pulse Rate 73 70 Respiratory 18 18 Rate Blood Pressure 129/75 119/61 O2 Sat by Pulse 99 99 Oximetry - Reevaluation(s) Reevaluation #1: 11/05/18 17:40 Blood sugar improved to 235. EKG Findings - EKG Comments: EKG Findings:: Normal sinus rhythm 71. LA 160. QRS 96. QT 404. QTC 439. Left axis. Normal QRS. No acute ST change. Medical Decision Making - Medical Decision Making Sandeep that if he has chronic. Blood sugar improved. Patient updated on results and need for follow-up. - Lab Data Result diagrams: 11/05/18 14:00 11/05/18 14:00 Lab Results 11/05/18 11/05/18 11/05/18 Range/Units 14:00 14:00 14:00 WBC 6.0 (3.8-10.6) k/uL RBC 4.58 (3.80-5.40) m/uL Hgb 12.7 (11.4-16.0) gm/dL Hct 39.4 (34.0-46.0) % MCV 86.1 (80.0-100.0) fL MCH 27.6 (25.0-35.0) pg MCHC 32.1 (31.0-37.0) g/dL RDW 16.2 H (11.5-15.5) % Plt Count 66 L (150-450) k/uL Neutrophils % 69 % Lymphocytes % 19 % Monocytes % 5 % Eosinophils % 5 % Basophils % 1 % Neutrophils # 4.1 (1.3-7.7) k/uL Lymphocytes # 1.1 (1.0-4.8) k/uL Monocytes # 0.3 (0-1.0) k/uL Eosinophils # 0.3 (0-0.7) k/uL Basophils # 0.0 (0-0.2) k/uL Manual Slide Review Performed Hypochromasia Slight Poikilocytosis Slight Anisocytosis Slight PT 11.2 (9.0-12.0) sec INR 1.1 (<1.2) APTT 26.4 (22.0-30.0) sec Sodium 136 L (137-145) mmol/L Potassium 4.2 (3.5-5.1) mmol/L Chloride 99 (98-107) mmol/L Carbon Dioxide 26 (22-30) mmol/L Anion Gap 11 mmol/L BUN 17 (7-17) mg/dL Creatinine 0.68 (0.52-1.04) mg/dL Est GFR (CKD-EPI)AfAm >90 (>60 ml/min/1.73 sqM) Est GFR (CKD-EPI)NonAf >90 (>60 ml/min/1.73 sqM) Glucose 400 H (74-99) mg/dL POC Glucose (mg/dL) (75-99) mg/dL POC Glu Medical Massage Therapist ID Calcium 8.9 (8.4-10.2) mg/dL Total Bilirubin 0.5 (0.2-1.3) mg/dL AST 17 (14-36) U/L ALT 11 (9-52) U/L Alkaline Phosphatase 89 (38-126) U/L Creatine Kinase 48 (30-135) U/L Troponin I (0.000-0.034) ng/mL Total Protein 7.1 (6.3-8.2) g/dL Albumin 4.0 (3.5-5.0) g/dL Urine Color Urine Appearance (Clear) Urine pH (5.0-8.0) Ur Specific [place] (1.001-1.035) Urine Protein (Negative) Urine Glucose (UA) (Negative) Urine Ketones (Negative) Urine Blood (Negative) Urine Nitrite (Negative) Urine Bilirubin (Negative) Urine Urobilinogen (<2.0) mg/dL Ur Leukocyte Esterase (Negative) Acetone, Qual Negative (Negative) 08/06/19 08/06/19 08/06/19 Range/Units 14:00 14:05 15:15 WBC (3.8-10.6) k/uL RBC (3.80-5.40) m/uL Hgb (11.4-16.0) gm/dL Hct (34.0-46.0) % MCV (80.0-100.0) fL MCH (25.0-35.0) pg MCHC (31.0-37.0) g/dL RDW (11.5-15.5) % Plt Count (150-450) k/uL Neutrophils % % Lymphocytes % % Monocytes % % Eosinophils % % Basophils % % Neutrophils # (1.3-7.7) k/uL Lymphocytes # (1.0-4.8) k/uL Monocytes # (0-1.0) k/uL Eosinophils # (0-0.7) k/uL Basophils # (0-0.2) k/uL Manual Slide Review Hypochromasia Poikilocytosis Anisocytosis PT (9.0-12.0) sec INR (<1.2) APTT (22.0-30.0) sec Sodium (137-145) mmol/L Potassium (3.5-5.1) mmol/L Chloride (98-107) mmol/L Carbon Dioxide (22-30) mmol/L Anion Gap mmol/L BUN (7-17) mg/dL Creatinine (0.52-1.04) mg/dL Est GFR (CKD-EPI)AfAm (>60 ml/min/1.73 sqM) Est GFR (CKD-EPI)NonAf (>60 ml/min/1.73 sqM) Glucose (74-99) mg/dL POC Glucose (mg/dL) 382 H (75-99) mg/dL POC Glu Medical Massage Therapist ID Ric Sandoval Calcium (8.4-10.2) mg/dL Total Bilirubin (0.2-1.3) mg/dL AST (14-36) U/L ALT (9-52) U/L Alkaline Phosphatase (38-126) U/L Creatine Kinase (30-135) U/L Troponin I <0.012 (0.000-0.034) ng/mL Total Protein (6.3-8.2) g/dL Albumin (3.5-5.0) g/dL Urine Color Light Yellow Urine Appearance Clear (Clear) Urine pH 6.5 (5.0-8.0) Ur Specific [place] 1.014 (1.001-1.035) Urine Protein Negative (Negative) Urine Glucose (UA) 4+ H (Negative) Urine Ketones Negative (Negative) Urine Blood Negative (Negative) Urine Nitrite Negative (Negative) Urine Bilirubin Negative (Negative) Urine Urobilinogen <2.0 (<2.0) mg/dL Ur Leukocyte Esterase Negative (Negative) Acetone, Qual (Negative) 11/05/18 11/05/18 Range/Units 16:20 17:38 WBC (3.8-10.6) k/uL RBC (3.80-5.40) m/uL Hgb (11.4-16.0) gm/dL Hct (34.0-46.0) % MCV (80.0-100.0) fL MCH (25.0-35.0) pg MCHC (31.0-37.0) g/dL RDW (11.5-15.5) % Plt Count (150-450) k/uL Neutrophils % % Lymphocytes % % Monocytes % % Eosinophils % % Basophils % % Neutrophils # (1.3-7.7) k/uL Lymphocytes # (1.0-4.8) k/uL Monocytes # (0-1.0) k/uL Eosinophils # (0-0.7) k/uL Basophils # (0-0.2) k/uL Manual Slide Review Hypochromasia Poikilocytosis Anisocytosis PT (9.0-12.0) sec INR (<1.2) APTT (22.0-30.0) sec Sodium (137-145) mmol/L Potassium (3.5-5.1) mmol/L Chloride (98-107) mmol/L Carbon Dioxide (22-30) mmol/L Anion Gap mmol/L BUN (7-17) mg/dL Creatinine (0.52-1.04) mg/dL Est GFR (CKD-EPI)AfAm (>60 ml/min/1.73 sqM) Est GFR (CKD-EPI)NonAf (>60 ml/min/1.73 sqM) Glucose (74-99) mg/dL POC Glucose (mg/dL) 315 H 235 H (75-99) mg/dL POC Glu Medical Massage Therapist ID Jenifer Fernandez Lacey Calcium (8.4-10.2) mg/dL Total Bilirubin (0.2-1.3) mg/dL AST (14-36) U/L ALT (9-52) U/L Alkaline Phosphatase (38-126) U/L Creatine Kinase (30-135) U/L Troponin I (0.000-0.034) ng/mL Total Protein (6.3-8.2) g/dL Albumin (3.5-5.0) g/dL Urine Color Urine Appearance (Clear) Urine pH (5.0-8.0) Ur Specific [place] (1.001-1.035) Urine Protein (Negative) Urine Glucose (UA) (Negative) Urine Ketones (Negative) Urine Blood (Negative) Urine Nitrite (Negative) Urine Bilirubin (Negative) Urine Urobilinogen (<2.0) mg/dL Ur Leukocyte Esterase (Negative) Acetone, Qual (Negative) - Radiology Data Radiology results: image reviewed (X-ray reveals no acute process) Disposition Clinical Impression: Hyperglycemia Disposition: HOME SELF-CARE Condition: Stable Instructions (If sedation given, give patient instructions): Diabetic Hyperglycemia (ED) Additional Instructions: Please follow-up with primary care physician in the next couple days for recheck. Please follow-up with wound center as they direct. Return for uncontrolled blood sugar, increased thirst, weakness, worsening or change in symptoms or other concerns. Is patient prescribed a controlled substance at d/c from ED?: No Referrals: Lilibeth Seymour MD [Primary Care Provider] - 1-2 days Time of Disposition: 17:42
[2018-11-05 14:54] LABS: Anisocytosis Slight; Basophils % (A) 1 %; Eosinophils # (A) 0.3 k/uL (0-0.7); Eosinophils % (A) 5 %; HCT 39.4 % (34.0-46.0); HGB 12.7 gm/dL (11.4-16.0); Hypochromasia Slight; Lymphocytes # (A) 1.1 k/uL (1.0-4.8); Lymphocytes % (A) 19 %; MCH 27.6 pg (25.0-35.0); MCHC 32.1 g/dL (31.0-37.0); MCV 86.1 fL (80.0-100.0); Mean Platelet Volume 8.8; Monocytes # (A) 0.3 k/uL (0-1.0); Monocytes % (A) 5 %; Neutrophils # (A) 4.1 k/uL (1.3-7.7); Neutrophils % (A) 69 %; Poikilocytosis Slight; RBC 4.58 m/uL (3.80-5.40); RDW 16.2 % (11.5-15.5)
[2018-11-05 14:58] LABS: ALT 11 U/L (9-52); AST 17 U/L (14-36); African American GFR (CKD) >90 (>60 ml/min/1.73 sqM); Alkaline Phosphatase 89 U/L (38-126); Anion Gap 11 mmol/L; Blood Urea Nitrogen 17 mg/dL (7-17); Calcium 8.9 mg/dL (8.4-10.2); Carbon Dioxide 26 mmol/L (22-30); Chloride 99 mmol/L (98-107); Creatine Kinase 48 U/L (30-135); Glucose 400 mg/dL (74-99); Potassium 4.2 mmol/L (3.5-5.1); Sodium 136 mmol/L (137-145); Total Bilirubin 0.5 mg/dL (0.2-1.3); Total Protein 7.1 g/dL (6.3-8.2)
[2018-11-05 15:00] LABS: INR 1.1 (<1.2); Partial Thromboplastin Time 26.4 sec (22.0-30.0); Prothrombin Time 11.2 sec (9.0-12.0)
--- NOTE | 2018-11-05 15:00 | XR ---
EXAMINATION TYPE: XR chest 2V DATE OF EXAM: 11/05/2018 COMPARISON: 07/04/2018 HISTORY: Weakness and hyperglycemia TECHNIQUE: Frontal and lateral views of the chest are obtained. FINDINGS: There is no focal air space opacity, pleural effusion, or pneumothorax seen. The cardiac silhouette size is within normal limits. The osseous structures are intact. Minimal degenerative ch anges of the spine. IMPRESSION: No acute cardiopulmonary process.
[2018-11-05 15:30] LABS: Appearance,Urine Clear (Clear); Bilirubin,Urine Negative (Negative); Blood,Urine Negative (Negative); Color,Urine Light Yellow; Glucose,Urine (UA) 4+ (Negative); Ketones,Urine Negative (Negative); Leukocyte Esterase,Urine Negative (Negative); Nitrite,Urine Negative (Negative); PH, Urine 6.5 (5.0-8.0); Protein,Urine Negative (Negative); Specific Gravity,Urine 1.014 (1.001-1.035); Urobilinogen,Urine <2.0 mg/dL (<2.0)
[2018-11-05] MEDS ORDERED: INSULIN REGULAR 100 UNIT/ML VIAL IV ONE ×2 (15:43→16:34)
[2018-11-05 16:10] LABS: Platelet Count 66 k/uL (150-450)
[2018-11-05 16:22] LABS: Glucose,Whole Blood 315 mg/dL (75-99)
[2018-11-05 17:40] LABS: Glucose,Whole Blood 235 mg/dL (75-99)
[2018-11-05 18:12] VITALS: BP 115/67; PULSE 76
== END 2018-11-05 18:12 | disposition home or self-care (01) ==
LOC: EC 12:51
DX: E11.65 Type 2 diabetes mellitus with hyperglycemia (principal); E11.621 Type 2 diabetes mellitus with foot ulcer; F31.9 Bipolar disorder, unspecified; F41.9 Anxiety disorder, unspecified; Z87.891 Personal history of nicotine dependence; Z88.0 Allergy status to penicillin; Z88.1 Allergy status to other antibiotic agents; Z79.4 Long term (current) use of insulin; Z79.82 Long term (current) use of aspirin; Z79.899 Other long term (current) drug therapy; Z86.14 Personal history of Methicillin resistant Staphylococcus aureus infection; Z85.41 Personal history of malignant neoplasm of cervix uteri; Z90.710 Acquired absence of both cervix and uterus; Z97.8 Presence of other specified devices
CPT/HCPCS: 36415; 71046; 80053; 81003; 82009; 82550; 84484; 85025; 85610; 85730; 93005; 99285

== ENCOUNTER 2018-11-25 08:10 | Emergency (ER) | payer OTHER ==
[2018-11-25 08:16] VITALS: BP 128/67; PULSE 88; RESP 18; TEMP 97.6
--- NOTE | 2018-11-25 08:56 | ED ---
General Adult HPI - General Chief complaint: Wound/Laceration Stated complaint: Foot problems Time Seen by Provider: 11/25/18 08:16 Source: patient, RN notes reviewed Mode of arrival: wheelchair Limitations: no limitations - History of Present Illness Initial comments: 62-year-old female with a complicated past medical history including diabetes, osteomyelitis presents to the emergency department for a chief complaint of blister on the left foot. States that she woke up and noticed this. Denies any pain. Denies any redness. Denies any fevers or chills. Denies any drainage. Denies any injuries. Patient has no other complaints at this time including shortness of breath, chest pain, abdominal pain, nausea or vomiting, headache, or visual changes. - Related Data Home Medications Medication Instructions Recorded Confirmed metFORMIN HCL [Glucophage] 850 mg PO BID 02/18/14 11/25/18 Aspirin EC [Ecotrin Low Dose] 81 mg PO DAILY 04/08/18 11/25/18 Cetirizine HCl [Zyrtec] 10 mg PO DAILY 04/08/18 11/25/18 Insulin Glargine,Hum.rec.anlog 80 unit SQ HS 04/08/18 11/25/18 [Basaglar Kwikpen U-100] Insulin Glargine,Hum.rec.anlog 100 unit SQ QAM 04/08/18 11/25/18 [Basaglar Kwikpen U-100] Simvastatin [Zocor] 40 mg PO HS 04/08/18 11/25/18 Triamterene/Hydrochlorothiazid 1 tab PO BID@1000,1400 04/08/18 11/25/18 [Maxzide 37.5-25] HYDROcodone/APAP 10-325MG [[place] 1 tab PO Q8H PRN 06/05/18 11/25/18 10-325] Nystatin 100,000 Unit/gm Powd 1 applic TOPICAL BID 07/04/18 11/25/18 [Mycostatin Powder] ARIPiprazole [Abilify] 5 mg PO HS 10/12/18 11/25/18 Venlafaxine HCl [Effexor XR] 225 mg PO DAILY 10/12/18 11/25/18 traZODone HCL [Desyrel] 100 mg PO HS 10/12/18 11/25/18 Insulin Lispro [Admelog] 35 unit SQ AC-TID 11/25/18 11/25/18 Previous Rx's Medication Instructions Recorded Cyclobenzaprine [Flexeril] 10 mg PO BID tab 02/16/18 Pregabalin [Lyrica] 75 mg PO BID cap 02/16/18 Levothyroxine Sodium [Synthroid] 100 mcg PO DAILY@0630 tab 04/11/18 Allergies Allergy/AdvReac Type Severity Reaction Status Date / Time meropenem Allergy Itching Verified 11/25/18 08:37 Penicillins Allergy Anaphylaxis Verified 11/25/18 08:37 Review of Systems ROS Statement: Those systems with pertinent positive or pertinent negative responses have been documented in the HPI. ROS Other: All systems not noted in ROS Statement are negative. Past Medical History Past Medical History: Diabetes Mellitus, Cancer, COPD, Diabetes Mellitus, Eye Disorder, Hyperlipidemia, Liver Disease, Musculoskeletal Disorder, Neurologic Disorder, Osteoarthritis (OA), Sleep Apnea/CPAP/BIPAP, Thyroid Disorder Additional Past Medical History / Comment(s): History of osteomyelitis left #3 toe and left calf: 2004. cervical cancer (in remission.) Cirrhosis of the liver r/t diabetes - sees Dr. Barraza, History of Any Multi-Drug Resistant Organisms: MRSA Date of last positivie culture/infection: 03/20/17 MDRO Source:: MRSA HEEL Past Surgical History: Section, Cholecystectomy, Hysterectomy, Orth opedic Surgery, Tonsillectomy, Tubal Ligation Additional Past Surgical History / Comment(s): Cataracts and laser surgery for glaucoma. Multiple I&D to left foot and lower leg. Past Anesthesia/Blood Transfusion Reactions: No Reported Reaction Past Psychological History: Anxiety, Bipolar, Depression Smoking Status: Former smoker Past Alcohol Use History: None Reported Past Drug Use History: Marijuana - Past Family History Father Family Medical History: Congestive Heart Failure (CHF), Coronary Artery Disease (CAD), Myocardial Infarction ([place]) Mother Family Medical History: Coronary Artery Disease (CAD), CVA/TIA, Dementia, Myocardial Infarction ([place]) General Exam Limitations: no limitations General appearance: alert, in no apparent distress Head exam: Present: atraumatic, normocephalic, normal inspection Eye exam: Present: normal appearance, PERRL, EOMI. Absent: scleral icterus, conjunctival injection, periorbital swelling ENT exam: Present: normal exam, mucous membranes moist Neck exam: Present: normal inspection, full ROM. Absent: tenderness, meningismus, lymphadenopathy Respiratory exam: Present: normal lung sounds bilaterally. Absent: respiratory distress, wheezes, rales, rhonchi, stridor Cardiovascular Exam: Present: regular rate, normal rhythm, normal heart sounds. Absent: systolic murmur, diastolic murmur, rubs, gallop, clicks Extremities exam: Present: other (Pt Has a 2 cm x 1 cm clear blister noted to the medial left Achilles area without any surrounding erythema or purulent drainage. Blister is intact.) Neurological exam: Present: alert Psychiatric exam: Present: normal affect, normal mood Course Vital Signs 11/25/18 08:13 Temperature 97.6 F Pulse Rate 88 Respiratory 18 Rate Blood Pressure 128/67 O2 Sat by Pulse 93 L Oximetry Medical Decision Making - Medical Decision Making 62-year-old female presents to the emergency department for a chief complaint of blister to the left medial Achilles area. That just started this morning. No erythema. No purulent drainage. No evidence of infection. Blister is still intact. At this time recommended leaving it intact and monitoring for signs of infections just prior she urinates drainage or fever. Recommended following up with primary care in 1-2 days. Recommend returning if she has any worsening symptoms. Disposition Clinical Impression: Blister Disposition: HOME SELF-CARE Condition: Good Instructions (If sedation given, give patient instructions): Blister (ED) Additional Instructions: Please keep the area clean. Monitor for signs infection such as spreading or streaking redness, drainage, fever. Return if these occur. Otherwise follow-up with primary care in 1-2 days to monitor this. Is patient prescribed a controlled substance at d/c from ED?: No Referrals: Lilibeth Seymour MD [Primary Care Provider] - 1-2 days Time of Disposition: 09:00
== END 2018-11-25 09:19 | disposition home or self-care (01) ==
LOC: EC 08:10
DX: S90.822A Blister (nonthermal), left foot, initial encounter (principal); E11.49 Type 2 diabetes mellitus with other diabetic neurological complication; E78.5 Hyperlipidemia, unspecified; M19.90 Unspecified osteoarthritis, unspecified site; G47.30 Sleep apnea, unspecified; F31.9 Bipolar disorder, unspecified; F41.9 Anxiety disorder, unspecified; Z87.891 Personal history of nicotine dependence; Z88.0 Allergy status to penicillin; Z88.1 Allergy status to other antibiotic agents; Z79.4 Long term (current) use of insulin; Z79.82 Long term (current) use of aspirin; Z79.899 Other long term (current) drug therapy; Z86.14 Personal history of Methicillin resistant Staphylococcus aureus infection; Z98.890 Other specified postprocedural states; Z99.89 Dependence on other enabling machines and devices; X58.XXXA Exposure to other specified factors, initial encounter
CPT/HCPCS: 99282

== ENCOUNTER 2018-12-01 20:30 | Emergency (ER) | payer OTHER ==
[2018-12-01 20:43] VITALS: RESP 18
--- NOTE | 2018-12-02 01:09 | XR ---
EXAM: XR Left Foot Complete, 3 or More Views CLINICAL HISTORY: ITS.REASON XR Reason: Pain TECHNIQUE: Frontal, lateral and oblique views of the left foot. COMPARISON: 10/08/18 FINDINGS: Bones/joints: No acute fracture. No dislocation. Amputated third toe. Unchanged chronic findings. Enthesophyte at the calcaneus. Soft tissues: Unremarkable. No radiopaque foreign body. IMPRESSION: No acute osseous findings. Chronic changes are again seen. If there is suspicion for infection, MRI is most sensitive for detecting early osteomyelitis.
[2018-12-02] MEDS ORDERED: CEPHALEXIN 500MG STARTER PACK 4 CAP BTL PO STA (02:02)
[2018-12-02] MEDS ORDERED: CEPHALEXIN 500 MG CAP PO STA (02:02)
--- NOTE | 2018-12-02 02:03 | ED ---
General Adult HPI - General Chief complaint: Recheck/Abnormal Lab/Rx Stated complaint: Foot ulcers Time Seen by Provider: 12/02/18 00:02 Source: patient, RN notes reviewed, old records reviewed Mode of arrival: wheelchair Limitations: no limitations - History of Present Illness Initial comments: 63-year-old female patient past medical history of recurrent foot wounds presents ED for evaluation of abrasion to medial aspect of great toe. Patient reports that she bumped this toe on the wall approximately 2 days ago. Patient reports that she does have a scab there. Patient has a putting Betadine numbness. Patient concerned that she does have a history of skin infections, wants to get this checked out. Denies any systemic signs of infection. Denies any other complaints at this time. Systemic: Pt denies fatigue, fever/chills, rash. Pt denies weakness, night sweats, weight loss. Neuro: Pt denies headache, visual disturbances, syncope or pre-syncope. HEENT: Pt denies ocular discharge or irritation, otalgia, rhinorrhea, pharyngitis or notable lymphadenopathy. Cardiopulmonary: Pt denies chest pain, SOB, heart palpitations, dyspnea on exertion. Abdominal/GI: Pt denies abdominal pain, n/v/d. : Pt denies dysuria, burning w/ urination, frequency/urgency. Denies new onset urinary or bowel incontinence. MSK: Pt denies myalgia, loss of strength or function in extremities. Neuro: Pt denies new onset weakness, paresthesias. - Related Data Home Medications Medication Instructions Recorded Confirmed metFORMIN HCL [Glucophage] 850 mg PO BID 02/18/14 11/25/18 Aspirin EC [Ecotrin Low Dose] 81 mg PO DAILY 04/08/18 11/25/18 Cetirizine HCl [Zyrtec] 10 mg PO DAILY 04/08/18 11/25/18 Insulin Glargine,Hum.rec.anlog 80 unit SQ HS 04/08/18 11/25/18 [Basaglar Kwikpen U-100] Insulin Glargine,Hum.rec.anlog 100 unit SQ QAM 04/08/18 11/25/18 [Basaglar Kwikpen U-100] Simvastatin [Zocor] 40 mg PO HS 04/08/18 11/25/18 Triamterene/Hydrochlorothiazid 1 tab PO BID@1000,1400 04/08/18 11/25/18 [Maxzide 37.5-25] HYDROcodone/APAP 10-325MG [[place] 1 tab PO Q8H PRN 06/05/18 11/25/18 10-325] Nystatin 100,000 Unit/gm Powd 1 applic TOPICAL BID 07/04/18 11/25/18 [Mycostatin Powder] ARIPiprazole [Abilify] 5 mg PO HS 10/12/18 11/25/18 Venlafaxine HCl [Effexor XR] 225 mg PO DAILY 10/12/18 11/25/18 traZODone HCL [Desyrel] 100 mg PO HS 10/12/18 11/25/18 Insulin Lispro [Admelog] 35 unit SQ AC-TID 11/25/18 11/25/18 Previous Rx's Medication Instructions Recorded Cyclobenzaprine [Flexeril] 10 mg PO BID tab 02/16/18 Pregabalin [Lyrica] 75 mg PO BID cap 02/16/18 Levothyroxine Sodium [Synthroid] 100 mcg PO DAILY@0630 tab 04/11/18 Cephalexin [Keflex] 500 mg PO Q6HR 7 Days #28 cap 12/02/18 Allergies Allergy/AdvReac Type Severity Reaction Status Date / Time meropenem Allergy Itching Verified 12/01/18 20:44 Penicillins Allergy Anaphylaxis Verified 12/01/18 20:44 Review of Systems ROS Statement: Those systems with pertinent positive or pertinent negative responses have been documented in the HPI. ROS Other: All systems not noted in ROS Statement are negative. Past Medical History Past Medical History: Diabetes Mellitus, Cancer, COPD, Diabetes Mellitus, Eye Disorder, Hyperlipidemia, Liver Disease, Musculoskeletal Disorder, Neurologic Disorder, Osteoarthritis (OA), Sleep Apnea/CPAP/BIPAP, Thyroid Disorder Additional Past Medical History / Comment(s): History of osteomyelitis left #3 toe and left calf: 2004. cervical cancer (in remission.) Cirrhosis of the liver r/t diabetes - sees Dr. Barraza, History of Any Multi-Drug Resistant Organisms: MRSA Date of last positivie culture/infection: 03/20/17 MDRO Source:: MRSA HEEL Past Surgical History: Section, Cholecystectomy, Hysterectomy, Orthopedic Surgery, Tonsillectomy, Tubal Ligation Additional Past Surgical History / Comment(s): Cataracts and laser surgery for glaucoma. Multiple I&D to left foot and lower leg. Past Anesthesia/Blood Transfusion Reactions: No Reported Reaction Past Psychological History: Anxiety, Bipolar, Depression Smoking Status: Former smoker Past Alcohol Use History: None Reported Past Drug Use History: Marijuana - Past Family History Father Family Medical History: Congestive Heart Failure (CHF), Coronary Artery Disease (CAD), Myocardial Infarction ([place]) Mother Family Medical History: Coronary Artery Disease (CAD), CVA/TIA, Dementia, Myocardial Infarction ([place]) General Exam - General Exam Comments Initial Comments: Constitutional: NAD, AOX3, Pt has pleasant affect. HEENT: NC/AT, trachea midline, neck supple, no lymphadenopathy. Posterior pharynx non erythematous, without exudates. External ears appear normal, without discharge. Mucous membranes moist. Eyes PERRLA, EOM intact. There is no scleral icterus. No pallor noted. Cardiopulmonary: RRR, no murmurs, rubs or gallops, no JVD noted. Lungs CTAB in anterior and posterior denney. No peripheral edema. Abdominal exam: Abdomen soft and non-distended. Abdomen non-tender to palpation in all 4 quadrants. Bowel sounds active in LLQ. No hepatosplenomegaly. No ecchymosis Neuro: CN II-XII grossly intact. No nuchal rigidity. No raccon eyes, no dempsey sign, no hemotympanum. No cervical spinal tenderness. MSK: 1.5 cm abrasion noted to medial aspect of great toe. No erythema, no streaking, no drainage, no fluctuance. No posterior calf tenderness bilaterally, homans sign negative bilaterally. Posterior tibialis and radial pulse +2 bilaterally. Sensation intact in upper and lower extremities. Full active ROM in upper and lower extremities, 5/5 stregnth. Limitations: no limitations Course Vital Signs 12/01/18 12/02/18 12/02/18 20:41 00:47 02:15 Temperature 98.8 F 97.9 F 97.2 F L Pulse Rate 79 76 74 Respiratory 18 18 18 Rate Blood Pressure 155/74 128/89 130/96 O2 Sat by Pulse 97 99 97 Oximetry Medical Decision Making - Medical Decision Making 63-year-old female patient past medical history of recurrent foot wounds presents ED for evaluation of abrasion to medial aspect of great toe. Patient reports that she bumped this toe on the wall approximately 2 days ago. Patient reports that she does have a scab there. Patient has a putting Betadine numbness. Patient concerned that she does have a history of skin infections, wants to get this checked out. Denies any systemic signs of infection. Denies any other complaints at this time. Pt VSS, afebrile. Physical exam displayed: 1.5 cm abrasion noted to medial aspect of great toe. No erythema, no streaking, no drainage, no fluctuance. Plain films did not acute process. Patient discharged with Keflex will follow up with primary care provider and wound clinic. Patient has taken Keflex before without difficulty. Case discussed with Dr. Sherman. Disposition Clinical Impression: Abrasion Disposition: HOME SELF-CARE Condition: Stable Instructions (If sedation given, give patient instructions): Abrasion (ED) Additional Instructions: Patient to adhere to previously discussed treatment plan and will take medication(s) as directed. Patient to follow up with PCP in 1-2 days. Patient to return to ED if symptoms do not improve. Follow-up with primary care provider tomorrow. Follow-up with wound clinic as scheduled. Return to ER if condition worsens. Prescriptions: Cephalexin [Keflex] 500 mg PO Q6HR 7 Days #28 cap Is patient prescribed a controlled substance at d/c from ED?: No Referrals: Lilibeth Seymour MD [Primary Care Provider] - 1-2 days
[2018-12-02 02:18] VITALS: BP 130/96; PULSE 74; TEMP 97.2
== END 2018-12-02 02:19 | disposition home or self-care (01) ==
LOC: EC 20:30
DX: S90.413A Abrasion, unspecified great toe, initial encounter (principal); E11.9 Type 2 diabetes mellitus without complications; E78.5 Hyperlipidemia, unspecified; M19.90 Unspecified osteoarthritis, unspecified site; F31.9 Bipolar disorder, unspecified; F41.9 Anxiety disorder, unspecified; H40.9 Unspecified glaucoma; G47.30 Sleep apnea, unspecified; Z87.891 Personal history of nicotine dependence; Z79.4 Long term (current) use of insulin; Z79.82 Long term (current) use of aspirin; Z79.899 Other long term (current) drug therapy; Z88.0 Allergy status to penicillin; Z88.8 Allergy status to other drugs, medicaments and biological substances; Z85.41 Personal history of malignant neoplasm of cervix uteri; Z86.14 Personal history of Methicillin resistant Staphylococcus aureus infection; Z98.51 Tubal ligation status; Z98.49 Cataract extraction status, unspecified eye; Z99.89 Dependence on other enabling machines and devices; W22.01XA Walked into wall, initial encounter
CPT/HCPCS: 99284

== ENCOUNTER 2018-12-10 01:16 | Emergency (ER) | payer OTHER ==
[2018-12-10 01:29] VITALS: BP 123/77; PULSE 82; RESP 20; TEMP 97.9
[2018-12-10] MEDS ORDERED: PROPARACAINE 0.5% OPHTH DROPS 15 ML BTL RIGHT EYE STA (01:34)
--- NOTE | 2018-12-10 01:43 | ED ---
Eye Problem HPI - General Chief complaint: Eye Problems Stated complaint: eye problems Time Seen by Provider: 12/10/18 01:32 Source: patient, family Mode of arrival: wheelchair Limitations: no limitations - History of Present Illness Initial comments: Patient is 63-year-old female presenting to the emergency room with a chief complaint of eye pain. Patient reports she was putting on mascara using a brush when she accidentally missed and pressed the brush against her left eye. The incident occurred 1 hour ago. Patient reports for sensitivity and pain in the left eye. Patient reports she is unable to fully open her eye due to the pain. Patient denies any pain with extraocular movements. Patient has any headaches or blurry vision. Patient does not wear contact lenses. Patient is unaware of her tetanus status. - Related Data Home Medications Medication Instructions Recorded Confirmed metFORMIN HCL [Glucophage] 850 mg PO BID 02/18/14 11/25/18 Aspirin EC [Ecotrin Low Dose] 81 mg PO DAILY 04/08/18 11/25/18 Cetirizine HCl [Zyrtec] 10 mg PO DAILY 04/08/18 11/25/18 Insulin Glargine,Hum.rec.anlog 80 unit SQ HS 04/08/18 11/25/18 [Basaglar Kwikpen U-100] Insulin Glargine,Hum.rec.anlog 100 unit SQ QAM 04/08/18 11/25/18 [Basaglar Kwikpen U-100] Simvastatin [Zocor] 40 mg PO HS 04/08/18 11/25/18 Triamterene/Hydrochlorothiazid 1 tab PO BID@1000,1400 04/08/18 11/25/18 [Maxzide 37.5-25] HYDROcodone/APAP 10-325MG [[place] 1 tab PO Q8H PRN 06/05/18 11/25/18 10-325] Nystatin 100,000 Unit/gm Powd 1 applic TOPICAL BID 07/04/18 11/25/18 [Mycostatin Powder] ARIPiprazole [Abilify] 5 mg PO HS 10/12/18 11/25/18 Venlafaxine HCl [Effexor XR] 225 mg PO DAILY 10/12/18 11/25/18 traZODone HCL [Desyrel] 100 mg PO HS 10/12/18 11/25/18 Insulin Lispro [Admelog] 35 unit SQ AC-TID 11/25/18 11/25/18 Previous Rx's Medication Instructions Recorded Cyclobenzaprine [Flexeril] 10 mg PO BID tab 02/16/18 Pregabalin [Lyrica] 75 mg PO BID cap 02/16/18 Levothyroxine Sodium [Synthroid] 100 mcg PO DAILY@0630 tab 04/11/18 Cephalexin [Keflex] 500 mg PO Q6HR 7 Days #28 cap 12/02/18 Allergies Allergy/AdvReac Type Severity Reaction Status Date / Time meropenem Allergy Itching Verified 12/01/18 20:44 Penicillins Allergy Anaphylaxis Verified 12/01/18 20:44 Review of Systems ROS Statement: Those systems with pertinent positive or pertinent negative responses have been documented in the HPI. ROS Other: All systems not noted in ROS Statement are negative. Past Medical History Past Medical History: Diabetes Mellitus, Cancer, COPD, Diabetes Mellitus, Eye Disorder, Hyperlipidemia, Liver Disease, Musculoskeletal Disorder, Neurologic Disorder, Osteoarthritis (OA), Sleep Apnea/CPAP/BIPAP, Thyroid Disorder Additional Past Medical History / Comment(s): History of osteomyelitis left #3 toe and left calf: 2004. cervical cancer (in remission.) Cirrhosis of the liver r/t diabetes - sees Dr. Barraza, History of Any Multi-Drug Resistant Organisms: MRSA Date of last positivie culture/infection: 03/20/17 MDRO Source:: MRSA HEEL Past Surgical History: Section, Cholecystectomy, Hysterectomy, Orthopedic Surgery, Tonsillectomy, Tubal Ligation Additional Past Surgical History / Comment(s): Cataracts and laser surgery for glaucoma. Multiple I&D to left foot and lower leg. Past Anesthesia/Blood Transfusion Reactions: No Reported Reaction Past Psychological History: Anxiety, Bipolar, Depression Smoking Status: Former smoker Past Alcohol Use History: None Reported Past Drug Use History: Marijuana - Past Family History Father Family Medical History: Congestive Heart Failure (CHF), Coronary Artery Disease (CAD), Myocardial Infarction ([place]) Mother Family Medical History: Coronary Artery Disease (CAD), CVA/TIA, Dementia, Myocardial Infarction ([place]) General Exam Limitations: no limitations General appearance: alert, in no apparent distress Head exam: Present: atraumatic, normocephalic, normal inspection Eye exam: Present: normal appearance, PERRL, EOMI, conjunctival injection, other (Corneal abrasion at 3:00 that is 1 mm away from visual field.). Absent: periorbital swelling, periorbital tenderness Pupils: Present: normal accommodation. Absent: other (Negative Berto test) ENT exam: Present: normal exam, normal oropharynx, mucous membranes moist, TM's normal bilaterally, normal external ear exam Neck exam: Present: normal inspection, full ROM Respiratory exam: Present: normal lung sounds bilaterally Cardiovascular Exam: Present: regular rate, normal rhythm, normal heart sounds Extremities exam: Present: normal inspection, full ROM Back exam: Present: normal inspection, full ROM Neurological exam: Present: alert, oriented X3 Psychiatric exam: Present: normal affect, normal mood Skin exam: Present: warm, intact, normal color Course Vital Signs 12/10/18 01:24 Temperature 97.9 F Pulse Rate 82 Respiratory 20 Rate Blood Pressure 123/77 O2 Sat by Pulse 98 Oximetry Medical Decision Making - Medical Decision Making Patient is 63-year-old female presenting to emergency Department with chief complaint of left eye pain. Patient reports using a mascara brush and accidentally putting pressure on it on the left side. Proparacaine drops were used. On physical examination using fluorescence stain patient does appear to have a corneal abrasion that's at the border of the visual field. Patient does report mild blurry vision in her left eye. No entrapment or pain with extraocular movements. Patient given ofloxacin drops. Patient will be also given tetanus prophylaxis. Strict return parameters were thoroughly discussed with patient is understanding and agreeable. Case discussed with physician. Disposition Clinical Impression: Corneal abrasion Disposition: HOME SELF-CARE Condition: Stable Instructions (If sedation given, give patient instructions): Corneal Abrasion (DC) Additional Instructions: Please take prescribed medication as directed. Please follow up with an ophtha lmologist if symptoms not improved. Please return to emergency department if symptoms worsen. Is patient prescribed a controlled substance at d/c from ED?: No Referrals: Lilibeth Seymour MD [Primary Care Provider] - 1-2 days Time of Disposition: 02:24
[2018-12-10] MEDS ORDERED: OFLOXACIN 0.3% OPHTH DROPS 5 ML BOTTLE LEFT EYE STA (02:17)
[2018-12-10] MEDS ORDERED: DIPH,PERTUS(ACELL)TETVAC-LF 0.5 ML VIAL IM ONE (02:18)
== END 2018-12-10 02:35 | disposition home or self-care (01) ==
LOC: EC 01:16
DX: S05.02XA Injury of conjunctiva and corneal abrasion without foreign body, left eye, initial encounter (principal); E11.9 Type 2 diabetes mellitus without complications; E78.5 Hyperlipidemia, unspecified; M19.90 Unspecified osteoarthritis, unspecified site; F41.9 Anxiety disorder, unspecified; F32.9 Major depressive disorder, single episode, unspecified; G47.30 Sleep apnea, unspecified; Z99.89 Dependence on other enabling machines and devices; Z85.41 Personal history of malignant neoplasm of cervix uteri; Z86.14 Personal history of Methicillin resistant Staphylococcus aureus infection; Z86.69 Personal history of other diseases of the nervous system and sense organs; Z98.49 Cataract extraction status, unspecified eye; Z87.891 Personal history of nicotine dependence; Z79.82 Long term (current) use of aspirin; Z79.4 Long term (current) use of insulin; Z79.899 Other long term (current) drug therapy; Z79.891 Long term (current) use of opiate analgesic; Z88.1 Allergy status to other antibiotic agents; Z88.0 Allergy status to penicillin; Z23 Encounter for immunization; W22.8XXA Striking against or struck by other objects, initial encounter
CPT/HCPCS: 90471; 90715; 99283

== ENCOUNTER 2018-12-21 12:49 | Emergency (ER) | payer OTHER ==
[2018-12-21 13:15] VITALS: TEMP 99
--- NOTE | 2018-12-21 13:17 | ED ---
Burn/Smoke HPI - General Stated complaint: Burn on stomach Time Seen by Provider: 12/21/18 12:54 Source: RN notes reviewed, old records reviewed Limitations: no limitations - History of Present Illness Initial comments: This is a 63-year-old female presented ER for evaluation of superficial burn to anterior abdominal wall. Patient having mild pain there. She was cooking was greasy extremities event happened. Patient does have one area of redness and erythema and blistering. She denies any other complaints or injuries. Patient is here for evaluation of wound MD Complaint: burn (Thermal burn) -: days(s) Type of Exposure: hot liquid Smoke Inhalation: none Place: home Location: abdomen Severity: mild (Superficial with second degree blister) Severity scale (1-10): 3 (No pain) - Related Data Home Medications Medication Instructions Recorded Confirmed metFORMIN HCL [Glucophage] 850 mg PO BID 02/18/14 11/25/18 Aspirin EC [Ecotrin Low Dose] 81 mg PO DAILY 04/08/18 11/25/18 Cetirizine HCl [Zyrtec] 10 mg PO DAILY 04/08/18 11/25/18 Insulin Glargine,Hum.rec.anlog 80 unit SQ HS 04/08/18 11/25/18 [Basaglar Kwikpen U-100] Insulin Glargine,Hum.rec.anlog 100 unit SQ [facility] 04/08/18 11/25/18 [Basaglar Kwikpen U-100] Simvastatin [Zocor] 40 mg PO HS 04/08/18 11/25/18 Triamterene/Hydrochlorothiazid 1 tab PO BID@1000,1400 04/08/18 11/25/18 [Maxzide 37.5-25] HYDROcodone/APAP 10-325MG [[place] 1 tab PO Q8H PRN 06/05/18 11/25/18 10-325] Nystatin 100,000 Unit/gm Powd 1 applic TOPICAL BID 07/04/18 11/25/18 [Mycostatin Powder] ARIPiprazole [Abilify] 5 mg PO HS 10/12/18 11/25/18 Venlafaxine HCl [Effexor XR] 225 mg PO DAILY 10/12/18 11/25/18 traZODone HCL [Desyrel] 100 mg PO HS 10/12/18 11/25/18 Insulin Lispro [Admelog] 35 unit SQ AC-TID 11/25/18 11/25/18 Previous Rx's Medication Instructions Recorded Cyclobenzaprine [Flexeril] 10 mg PO BID tab 02/16/18 Pregabalin [Lyrica] 75 mg PO BID cap 02/16/18 Levothyroxine Sodium [Synthroid] 100 mcg PO DAILY@0630 tab 04/11/18 Cephalexin [Keflex] 500 mg PO Q6HR 7 Days #28 cap 12/02/18 Allergies Allergy/AdvReac Type Severity Reaction Status Date / Time meropenem Allergy Itching Verified 12/01/18 20:44 Penicillins Allergy Anaphylaxis Verified 12/01/18 20:44 Review of Systems ROS Statement: Those systems with pertinent positive or pertinent negative responses have been documented in the HPI. ROS Other: All systems not noted in ROS Statement are negative. Past Medical History Past Medical History: Diabetes Mellitus, Cancer, COPD, Diabetes Mellitus, Eye Disorder, Hyperlipidemia, Liver Disease, Musculoskeletal Disorder, Neurologic Disorder, Osteoarthritis (OA), Sleep Apnea/CPAP/BIPAP, Thyroid Disorder Additional Past Medical History / Comment(s): History of osteomyelitis left #3 toe and left calf: 2004. cervical cancer (in remission.) Cirrhosis of the liver r/t diabetes - sees Dr. Barraza, History of Any Multi-Drug Resistant Organisms: MRSA Date of last positivie culture/infection: 03/20/17 MDRO Source:: MRSA HEEL Past Surgical History: Section, Cholecystectomy, Hysterectomy, Orthopedic Surgery, Tonsillectomy, Tubal Ligation Additional Past Surgical History / Comment(s): Cataracts and laser surgery for glaucoma. Multiple I&D to left foot and lower leg. Past Anesthesia/Blood Transfusion Reactions: No Reported Reaction Past Psychological History: Anxiety, Bipolar, Depression Smoking Status: Former smoker Past Alcohol Use History: None Reported Past Drug Use History: Marijuana - Past Family History Father Family Medical History: Congestive Heart Failure (CHF), Coronary Artery Disease (CAD), Myocardial Infarction ([place]) Mother Family Medical History: Coronary Artery Disease (CAD), CVA/TIA, Dementia, Myocardial Infarction ([place]) General Exam General appearance: alert, in no apparent distress, obese Head exam: Present: atraumatic, normocephalic, normal inspection Eye exam: Present: normal appearance, EOMI. Absent: scleral icterus, conjunctival injection, periorbital swelling ENT exam: Present: normal exam, mucous membranes moist Neck exam: Present: normal inspection. Absent: tenderness, meningismus, lymphadenopathy Respiratory exam: Present: normal lung sounds bilaterally. Absent: respiratory distress, wheezes, rales, rhonchi, stridor Cardiovascular Exam: Present: regular rate, normal rhythm, normal heart sounds. Absent: systolic murmur, diastolic murmur, rubs, gallop, clicks GI/Abdominal exam: Present: soft, normal bowel sounds. Absent: distended, tenderness, guarding, rebound, rigid Extremities exam: Present: normal inspection, full ROM, normal capillary refill. Absent: tenderness, pedal edema, joint swelling, calf tenderness Back exam: Present: normal inspection Neurological exam: Present: alert, oriented X3, CN II-XII intact Psychiatric exam: Present: normal affect, normal mood Skin exam: Present: warm, dry, intact, normal color. Absent: rash Course - Reevaluation(s) Reevaluation #1: 12/21/18 13:16 Medical records reviewed Reevaluation #2: 12/21/18 13:16 Wound is debrided here in the emergency room patient given wound care instructions Medical Decision Making - Medical Decision Making 63 female with second-degree burn to abdominal wall. Mild area 5 x 1 cm. Wound is a bright here in the ER, patient given care instructions and can be discharged home Disposition Clinical Impression: Second degree burn of abdominal wall Disposition: HOME SELF-CARE Condition: Good Instructions (If sedation given, give patient instructions): Second Degree Burn (ED), Superficial Burn (ED) Is patient prescribed a controlled substance at d/c from ED?: No Referrals: Lilibeth Seymour MD [Primary Care Provider] - 1-2 days
[2018-12-21 13:33] VITALS: BP 116/68; PULSE 81; RESP 161
== END 2018-12-21 13:32 | disposition home or self-care (01) ==
LOC: EC 12:49
DX: T21.22XA Burn of second degree of abdominal wall, initial encounter (principal); T31.0 Burns involving less than 10% of body surface; E11.9 Type 2 diabetes mellitus without complications; G47.30 Sleep apnea, unspecified; E78.5 Hyperlipidemia, unspecified; F41.9 Anxiety disorder, unspecified; F32.9 Major depressive disorder, single episode, unspecified; Z79.4 Long term (current) use of insulin; Z79.82 Long term (current) use of aspirin; Z79.899 Other long term (current) drug therapy; Z88.0 Allergy status to penicillin; Z88.1 Allergy status to other antibiotic agents; Z87.891 Personal history of nicotine dependence; Z85.41 Personal history of malignant neoplasm of cervix uteri; X12.XXXA Contact with other hot fluids, initial encounter; Y93.G3 Activity, cooking and baking; Y92.000 Kitchen of unspecified non-institutional (private) residence as the place of occurrence of the external cause
CPT/HCPCS: 16020; 99283

== ENCOUNTER → 2019-01-17 | Outpatient (CLI) | payer OTHER ==
[2019-01-17 13:21] LABS: Basophils % (A) 0 %; Eosinophils # (A) 0.2 k/uL (0-0.7); Eosinophils % (A) 4 %; HCT 42.5 % (34.0-46.0); HGB 13.2 gm/dL (11.4-16.0); Hypochromasia Slight; Lymphocytes # (A) 0.9 k/uL (1.0-4.8); Lymphocytes % (A) 16 %; MCH 27.6 pg (25.0-35.0); MCHC 31.1 g/dL (31.0-37.0); MCV 88.8 fL (80.0-100.0); Mean Platelet Volume 8.2; Monocytes # (A) 0.2 k/uL (0-1.0); Monocytes % (A) 4 %; Neutrophils # (A) 4.4 k/uL (1.3-7.7); Neutrophils % (A) 75 %; RBC 4.79 m/uL (3.80-5.40); RDW 15.9 % (11.5-15.5); WBC 5.9 k/uL (3.8-10.6)
[2019-01-17 13:37] LABS: Platelet Count 74 k/uL (150-450)
[2019-01-17 18:28] LABS: Albumin 4.1 g/dL (3.80-4.90); Albumin/Globulin Ratio 1.52 (1.60-3.17); Anion Gap 7.4 mmol/L (4.00-12.00); BUN/Creat Ratio 12.22 Ratio (12.00-20.00); Calcium 9.2 mg/dL (8.7-10.3); Carbon Dioxide 28.6 mmol/L (21.6-31.8); Chol/HDL Ratio 3.04; Globulin 2.7 g/dL (1.6-3.3); LDL Cholesterol,Calculated 92.4 mg/dL (0.0-131.0); Potassium 4.4 mmol/L (3.5-5.5); Total Bilirubin 0.6 mg/dL (0.3-1.2); Total Protein 6.8 g/dL (6.2-8.2); VLDL Calculation 23.6 mg/dL (5.00-40.00)
[2019-01-17 20:24] LABS: Hemoglobin A1C 10.4 % (4.0-6.0)
== END ==
LOC: LABWHC1 12:06
PROVIDERS: ATTEND Internal Medicine
DX: E03.9 Hypothyroidism, unspecified (principal); E78.2 Mixed hyperlipidemia; E11.65 Type 2 diabetes mellitus with hyperglycemia; Z79.4 Long term (current) use of insulin; E55.9 Vitamin D deficiency, unspecified
CPT/HCPCS: 36415; 80053; 80061; 82306; 83036; 84443; 85025

== ENCOUNTER 2019-01-25 17:56 | Emergency (ER) | payer OTHER ==
[2019-01-25 18:12] VITALS: BP 126/63; PULSE 82; RESP 18; TEMP 98.3
[2019-01-25] MEDS ORDERED: CEPHALEXIN 500MG STARTER PACK 4 CAP BTL PO STA (18:37)
[2019-01-25] MEDS ORDERED: CEPHALEXIN 500 MG CAP PO STA (18:37)
--- NOTE | 2019-01-25 18:39 | ED ---
General Adult HPI - General Chief complaint: Skin/Abscess/Foreign Body Stated complaint: wound/diabetic Time Seen by Provider: 01/25/19 18:13 Source: patient, RN notes reviewed, old records reviewed Mode of arrival: wheelchair Limitations: physical limitation - History of Present Illness Initial comments: 63-year-old female patient past history significant for recurrent wounds in right lower foot region presents to ED for chief complaint of concern about new wound. Patient reports that she recently had a prolonged period of wound healing which resolved about 2 weeks ago. Patient today while changing her dressing she noticed that she had an ulcer open on her heel region. Patient also has a blister on the medial aspect of her right foot which is not draining. Denies any other complaints at this time. Systemic: Pt denies fatigue, fever/chills, rash. Pt denies weakness, night sweats, weight loss. Neuro: Pt denies headache, visual disturbances, syncope or pre-syncope. HEENT: Pt denies ocular discharge or irritation, otalgia, rhinorrhea, pharyngitis or notable lymphadenopathy. Cardiopulmonary: Pt denies chest pain, SOB, heart palpitations, dyspnea on exertion. Abdominal/GI: Pt denies abdominal pain, n/v/d. : Pt denies dysuria, burning w/ urination, frequency/urgency. Denies new onset urinary or bowel incontinence. MSK: Pt denies myalgia, loss of strength or function in extremities. Neuro: Pt denies new onset weakness, paresthesias. - Related Data Home Medications Medication Instructions Recorded Confirmed metFORMIN HCL [Glucophage] 850 mg PO BID 02/18/14 12/21/18 Aspirin EC [Ecotrin Low Dose] 81 mg PO DAILY 04/08/18 12/21/18 Cetirizine HCl [Zyrtec] 10 mg PO DAILY 04/08/18 12/21/18 Insulin Glargine,Hum.rec.anlog 80 unit SQ HS 04/08/18 12/21/18 [Basaglar Kwikpen U-100] Insulin Glargine,Hum.rec.anlog 100 unit SQ QAM 04/08/18 12/21/18 [Basaglar Kwikpen U-100] Simvastatin [Zocor] 40 mg PO HS 04/08/18 12/21/18 Triamterene/Hydrochlorothiazid 1 tab PO BID@1000,1400 04/08/18 12/21/18 [Maxzide 37.5-25] HYDROcodone/APAP 10-325MG [[place] 1 tab PO Q8H PRN 06/05/18 12/21/18 10-325] Nystatin 100,000 Unit/gm Powd 1 applic TOPICAL BID 07/04/18 12/21/18 [Mycostatin Powder] ARIPiprazole [Abilify] 5 mg PO HS 10/12/18 12/21/18 Venlafaxine HCl [Effexor XR] 225 mg PO DAILY 10/12/18 12/21/18 traZODone HCL [Desyrel] 100 mg PO HS 10/12/18 12/21/18 Insulin Lispro [Admelog] 35 unit SQ AC-TID 11/25/18 12/21/18 Previous Rx's Medication Instructions Recorded Cyclobenzaprine [Flexeril] 10 mg PO BID tab 02/16/18 Pregabalin [Lyrica] 75 mg PO BID cap 02/16/18 Levothyroxine Sodium [Synthroid] 100 mcg PO DAILY@0630 tab 04/11/18 Cephalexin [Keflex] 500 mg PO Q6HR 10 Days cap 01/25/19 Allergies Allergy/AdvReac Type Severity Reaction Status Date / Time meropenem Allergy Itching Verified 01/25/19 18:11 Penicillins Allergy Anaphylaxis Verified 01/25/19 18:11 Review of Systems ROS Statement: Those systems with pertinent positive or pertinent negative responses have been documented in the HPI. ROS Other: All systems not noted in ROS Statement are negative. Past Medical History Past Medical History: Diabetes Mellitus, Cancer, COPD, Diabetes Mellitus, Eye Disorder, Hyperlipidemia, Liver Disease, Musculoskeletal Disorder, Neurologic Disorder, Osteoarthritis (OA), Sleep Apnea/CPAP/BIPAP, Thyroid Disorder Additional Past Medical History / Comment(s): History of osteomyelitis left #3 toe and left calf: 2004. cervical cancer (in remission.) Cirrhosis of the liver r/t diabetes History of Any Multi-Drug Resistant Organisms: MRSA Date of last positivie culture/infection: 03/20/17 MDRO Source:: MRSA HEEL Past Surgical History: Section, Cholecystectomy, Hysterectomy, Orthopedic Surgery, Tonsillectomy, Tubal Ligation Additional Past Surgical History / Comment(s): Cataracts and laser surgery for glaucoma. Multiple I&D to left foot and lower leg. Past Anesthesia/Blood Transfusion Reactions: No Reported Reaction Past Psychological History: Anxiety, Bipolar, Depression Smoking Status: Former smoker Past Alcohol Use History: None Reported Past Drug Use History: Marijuana - Past Family History Father Family Medical History: Congestive Heart Failure (CHF), Coronary Artery Disease (CAD), Myocardial Infarction ([place]) Mother Family Medical History: Coronary Artery Disease (CAD), CVA/TIA, Dementia, Myocardial Infarction ([place]) General Exam - General Exam Comments Initial Comments: Constitutional: NAD, AOX3, Pt has pleasant affect. HEENT: NC/AT, trachea midline, neck supple, no lymphadenopathy. Posterior pharynx non erythematous, without exudates. External ears appear normal, without discharge. Mucous membranes moist. Eyes PERRLA, EOM intact. There is no scleral icterus. No pallor noted. Cardiopulmonary: RRR, no murmurs, rubs or gallops, no JVD noted. Lungs CTAB in anterior and posterior denney. No peripheral edema. Abdominal exam: Abdomen soft and non-distended. Abdomen non-tender to palpation in all 4 quadrants. Bowel sounds active in LLQ. No hepatosplenomegaly. No ecchymosis Neuro: CN II-XII grossly intact. No nuchal rigidity. No raccon eyes, no dempsey sign, no hemotympanum. No cervical spinal tenderness. MSK: 1 x 1 cm ulcer on heel. 2 x 2 centimeter blister on the medial aspect of feel, not draining. Distal pulses intact and equal. Patient able to wiggle toes. Mild amount of erythema on medial aspect of foot. No streaking, no abscess. No posterior calf tenderness bilaterally, homans sign negative bilaterally. Posterior tibialis and radial pulse +2 bilaterally. Sensation intact in upper and lower extremities. Full active ROM in upper and lower extremities, 5/5 stregnth. Limitations: physical limitation Course Vital Signs 01/25/19 18:09 Temperature 98.3 F Pulse Rate 82 Respiratory 18 Rate Blood Pressure 126/63 O2 Sat by Pulse 94 L Oximetry Medical Decision Making - Medical Decision Making 63-year-old female patient past history significant for recurrent wounds in right lower foot region presents to ED for chief complaint of concern about new wound. Patient reports that she recently had a prolonged period of wound healing which resolved about 2 weeks ago. Patient today while changing her dressing she noticed that she had an ulcer open on her heel region. Patient also has a blister on the medial aspect of her right foot which is not draining. Denies any other complaints at this time. Patient vital stable, afebrile. Physical exam displayed: 1 x 1 cm ulcer on heel. 2 x 2 centimeter blister on the medial aspect of feel, not draining. Distal pulses intact and equal. Patient able to wiggle toes. Mild amount of erythema on medial aspect of foot. No streaking, no abscess. Plain films displayed heel spurs. Patient was placed on Keflex for diabetic foot ulcer. Will be discharged with outpatient follow-up with primary care provider and wound clinic. Case discussed with Dr. Saldaña. Disposition Clinical Impression: Diabetic foot ulcer Disposition: HOME SELF-CARE Condition: Stable Additional Instructions: Patient to adhere to previously discussed treatment plan and will take medication(s) as directed. Patient to follow up with PCP in 1-2 days. Patient to return to ED if symptoms do not improve. Take antibiotics as directed. Follow-up with primary care provider and wound clinic on Sunday. Return to ER if condition worsens. Prescriptions: Cephalexin [Keflex] 500 mg PO Q6HR 10 Days cap Is patient prescribed a controlled substance at d/c from ED?: No Referrals: Lilibeth Seymour MD [Primary Care Provider] - 1-2 days
--- NOTE | 2019-01-25 19:49 | XR ---
EXAMINATION TYPE: XR foot complete LT DATE OF EXAM: 01/25/2019 COMPARISON: None HISTORY: Diabetic foot ulcer TECHNIQUE: Three-view left foot FINDINGS: Large plantar calcaneal heel spur is present. Small Achilles tendon calcaneal heel spur is present. Some joint space narrowing of the proximal distal interphalangeal joint spaces is present. No acute f ractures are evident. Hammertoes may be present. No radiopaque foreign bodies are evident. IMPRESSION: 1. Calcaneal heel spurs.
== END 2019-01-25 20:19 | disposition home or self-care (01) ==
LOC: EC 17:56
DX: E11.621 Type 2 diabetes mellitus with foot ulcer (principal); L97.519 Non-pressure chronic ulcer of other part of right foot with unspecified severity; S90.821A Blister (nonthermal), right foot, initial encounter; F41.9 Anxiety disorder, unspecified; F31.9 Bipolar disorder, unspecified; E78.5 Hyperlipidemia, unspecified; M19.90 Unspecified osteoarthritis, unspecified site; M77.31 Calcaneal spur, right foot; M77.32 Calcaneal spur, left foot; G47.30 Sleep apnea, unspecified; E07.9 Disorder of thyroid, unspecified; K74.60 Unspecified cirrhosis of liver; Z79.82 Long term (current) use of aspirin; Z79.4 Long term (current) use of insulin; Z79.899 Other long term (current) drug therapy; Z87.891 Personal history of nicotine dependence; Z88.0 Allergy status to penicillin; Z88.1 Allergy status to other antibiotic agents; Z86.14 Personal history of Methicillin resistant Staphylococcus aureus infection; Z99.89 Dependence on other enabling machines and devices; Z85.41 Personal history of malignant neoplasm of cervix uteri; Z87.39 Personal history of other diseases of the musculoskeletal system and connective tissue; X58.XXXA Exposure to other specified factors, initial encounter
CPT/HCPCS: 99284

== ENCOUNTER 2019-01-28 10:30 | Emergency (ER) | payer OTHER ==
[2019-01-28 10:36] VITALS: BP 127/70; PULSE 71; RESP 18; TEMP 98.3
--- NOTE | 2019-01-28 11:11 | ED ---
Skin/Abscess/FB HPI - General Chief complaint: Skin/Abscess/Foreign Body Stated complaint: rt foot wound Time Seen by Provider: 01/28/19 10:38 Source: patient Mode of arrival: wheelchair Limitations: no limitations - History of Present Illness Initial comments: Patient is a 63-year-old female with past medical history of diabetes, presenting to the emergency Department with complaints of a possible infected wound on the bottom of her right foot. Patient states she was previously seen in the ER a few days ago for same thing and was started on Keflex. Patient states she was doing a lot of walking looking for a new house 2 days ago when she felt the ulcer "pop." Patient states she noticed some more drainage from the wound and wanted to make sure it looked okay. Patient states she was discharged from the wound clinic approximately one week ago for the same wound as it was almost healed. Patient denies fever, chills, nausea, vomiting. Minerva gant has no other complaints at this time. Upon arrival to ER, vital signs are stable. - Related Data Home Medications Medication Instructions Recorded Confirmed metFORMIN HCL [Glucophage] 850 mg PO BID 02/18/14 01/28/19 Aspirin EC [Ecotrin Low Dose] 81 mg PO DAILY 04/08/18 01/28/19 Cetirizine HCl [Zyrtec] 10 mg PO DAILY 04/08/18 01/28/19 Insulin Glargine,Hum.rec.anlog 80 unit SQ HS 04/08/18 01/28/19 [Basaglar Kwikpen U-100] Insulin Glargine,Hum.rec.anlog 100 unit SQ QAM 04/08/18 01/28/19 [Basaglar Kwikpen U-100] Simvastatin [Zocor] 40 mg PO HS 04/08/18 01/28/19 Triamterene/Hydrochlorothiazid 1 tab PO BID@1000,1400 04/08/18 01/28/19 [Maxzide 37.5-25] HYDROcodone/APAP 10-325MG [[place] 1 tab PO Q8H PRN 06/05/18 01/28/19 10-325] Nystatin 100,000 Unit/gm Powd 1 applic TOPICAL BID 07/04/18 01/28/19 [Mycostatin Powder] ARIPiprazole [Abilify] 5 mg PO HS 10/12/18 01/28/19 Venlafaxine HCl [Effexor XR] 225 mg PO DAILY 10/12/18 01/28/19 traZODone HCL [Desyrel] 100 mg PO HS 10/12/18 01/28/19 Insulin Lispro [Admelog] 35 unit SQ AC-TID 11/25/18 01/28/19 Previous Rx's Medication Instructions Recorded Cyclobenzaprine [Flexeril] 10 mg PO BID tab 02/16/18 Pregabalin [Lyrica] 75 mg PO BID cap 02/16/18 Levothyroxine Sodium [Synthroid] 100 mcg PO DAILY@0630 tab 04/11/18 Cephalexin [Keflex] 500 mg PO Q6HR 10 Days cap 01/25/19 Sulfamethox-Tmp 800-160Mg [Bactrim 1 each PO Q12HR 7 Days #14 tab 01/28/19 Ds] Allergies Allergy/AdvReac Type Severity Reaction Status Date / Time meropenem Allergy Itching Verified 01/28/19 11:23 Penicillins Allergy Anaphylaxis Verified 01/28/19 11:23 Review of Systems ROS Statement: Those systems with pertinent positive or pertinent negative responses have been documented in the HPI. ROS Other: All systems not noted in ROS Statement are negative. Past Medical History Past Medical History: Diabetes Mellitus, Cancer, COPD, Diabetes Mellitus, Eye Disorder, Hyperlipidemia, Liver Disease, Musculoskeletal Disorder, Neurologic Disorder, Osteoarthritis (OA), Sleep Apnea/CPAP/BIPAP, Thyroid Disorder Additional Past Medical History / Comment(s): History of osteomyelitis left #3 toe and left calf: 2004. cervical cancer (in remission.) Cirrhosis of the liver r/t diabetes History of Any Multi-Drug Resistant Organisms: MRSA Date of last positivie culture/infection: 03/20/17 MDRO Source:: MRSA HEEL Past Surgical History: Section, Cholecystectomy, Hysterectomy, Orthopedic Surgery, Tonsillectomy, Tubal Ligation Additional Past Surgical History / Comment(s): Cataracts and laser surgery for glaucoma. Multiple I&D to left foot and lower leg. Past Anesthesia/Blood Transfusion Reactions: No Reported Reaction Past Psychological History: Anxiety, Bipolar, Depression Smoking Status: Former smoker Past Alcohol Use History: None Reported Past Drug Use History: Marijuana - Past Family History Father Family Medical History: Congestive Heart Failure (CHF), Coronary Artery Disease (CAD), Myocardial Infarction ([place]) Mother Family Medical History: Coronary Artery Disease (CAD), CVA/TIA, Dementia, Myocardial Infarction ([place]) General Exam - General Exam Comments Initial Comments: GENERAL: Well-appearing, well-nourished and in no acute distress. HEAD: Atraumatic, normocephalic. EYES: Pupils equal round and reactive to light, extraocular movements intact, sclera anicteric, conjunctiva are normal. NECK: Normal range of motion, supple without lymphadenopathy or JVD. LUNGS: Breath sounds clear to auscultation bilaterally and equal. No wheezes rales or rhonchi. HEART: Regular rate and rhythm without murmurs, rubs or gallops. ABDOMEN: Soft, nontender, normoactive bowel sounds. No guarding, no rebound. No masses appreciated. EXTREMITIES: Normal range of motion. No clubbing or cyanosis. Neurovascular intact. NEUROLOGICAL: Cranial nerves II through XII grossly intact. Normal speech, normal gait. PSYCH: Normal mood, normal affect. SKIN: Warm, Dry, normal turgor. Patient has a small, 0.5 cm in diameter, superficial wound to the plantar surface of her right foot on the heel. The wound is sligh tly draining red color fluid. There is no surrounding erythema. The surrounding tissue looks healthy. Patient also has a rather large blood blister on the medial aspect of the right heel. This was is drained and red fluid was expressed from the blister. Limitations: no limitations Course Vital Signs 01/28/19 10:32 Temperature 98.3 F Pulse Rate 71 Respiratory 18 Rate Blood Pressure 127/70 O2 Sat by Pulse 96 Oximetry Medical Decision Making - Medical Decision Making Patient is a 63-year-old female presenting with a diabetic ulcer on the bottom of her right foot. Patient was seen approximately 3 days ago for same complaint. Patient was started on Keflex then. Patient returns because the wound did open up. The wound is small in size and very superficial at this time. Patient has a rather large blood blister on the medial aspect of her rig ht heel. A small needle was used to drain the blister, reddish/clear fluid drained. Topical antibiotic was applied to both wounds and bandaged. Patient will be started on Bactrim and we also discussed daily foot soaks with soap and warm water. Patient is stable for discharge at this time and she is in agreement with this plan of care. If wound continues to enlarge or more drainage, patient will follow-up with the wound care clinic. Patient will follow up with her PCP the next one to 3 days. Return parameters were discussed with the patient she verbalized understanding. Case discussed with Dr. Soto. Disposition Clinical Impression: Ulcer of right heel Disposition: HOME SELF-CARE Condition: Stable Instructions (If sedation given, give patient instructions): Diabetic Foot Ulcers (ED) Additional Instructions: Please return to the Emergency Department if symptoms worsen or any other concerns. Take anabolic as prescribed. Use warm water and soap soaks once a day. Follow-up with wound care clinic and one week if symptoms persist. Follow-up with PCP in 1-3 days. Prescriptions: Sulfamethox-Tmp 800-160Mg [Bactrim Ds] 1 each PO Q12HR 7 Days #14 tab Is patient prescribed a controlled substance at d/c from ED?: No Referrals: Lilibeth Seymour MD [Primary Care Provider] - 1-2 days
== END 2019-01-28 11:31 | disposition home or self-care (01) ==
LOC: EC 10:30
DX: E11.621 Type 2 diabetes mellitus with foot ulcer (principal); L97.419 Non-pressure chronic ulcer of right heel and midfoot with unspecified severity; E78.5 Hyperlipidemia, unspecified; M19.90 Unspecified osteoarthritis, unspecified site; E07.9 Disorder of thyroid, unspecified; G47.30 Sleep apnea, unspecified; F31.9 Bipolar disorder, unspecified; F41.9 Anxiety disorder, unspecified; Z87.891 Personal history of nicotine dependence; Z88.0 Allergy status to penicillin; Z88.1 Allergy status to other antibiotic agents; Z79.4 Long term (current) use of insulin; Z79.82 Long term (current) use of aspirin; Z79.899 Other long term (current) drug therapy; Z85.41 Personal history of malignant neoplasm of cervix uteri; Z86.14 Personal history of Methicillin resistant Staphylococcus aureus infection; Z90.710 Acquired absence of both cervix and uterus; Z98.890 Other specified postprocedural states; Z99.89 Dependence on other enabling machines and devices
CPT/HCPCS: 10160; 99282

== ENCOUNTER 2019-01-30 17:13 | Inpatient (IN) | payer OTHER ==
[2019-01-30] MEDS ORDERED: VANCOMYCIN IV PER PHARMACY 1 EACH MISC MISCELLANE PRN (17:47)
[2019-01-30] MEDS ORDERED: VANCOMYCIN 2,500 MG in SODIUM CHLORIDE 0.9% 500 ML 500 ML IVPB STA (17:56)
--- NOTE | 2019-01-30 18:06 | XR ---
EXAMINATION TYPE: XR foot complete RT DATE OF EXAM: 01/30/2019 COMPARISON: NONE HISTORY: Nonhealing wound TECHNIQUE: 3 views FINDINGS: There is soft tissue swelling on the plantar aspect of the foot. There are plantar and Achi lles calcaneal spurs. I see no fracture nor dislocation. There is soft tissue swelling around the ank le. IMPRESSION: Significant soft tissue swelling that has progressed compared to old exam. No fracture se en. No focal bone destruction.
--- NOTE | 2019-01-30 18:27 | ED ---
General Adult HPI - General Chief complaint: Wound/Laceration Stated complaint: rt foot wound Time Seen by Provider: 01/30/19 17:19 Source: patient, RN notes reviewed, old records reviewed Mode of arrival: wheelchair Limitations: no limitations - History of Present Illness Initial comments: 63-year-old female patient past history significant for diabetic ulcers, diabetes since he chief complaint of evaluation of right foot wound. This is patient's third time being seen for this. Patient is currently on approximately day 5 of Keflex. Patient is starting her first day of Bactrim today. Patient was that she has a large blister on the heel of her right foot surrounding erythema. Denies any systemic complaints. He was recently discharge from wound clinic approximately 2 weeks ago for asthmatic ulcers. Symptoms improved until this recent blisters and ulcer started. Denies all other complaints. Systemic: Pt denies fatigue, fever/chills, rash. Pt denies weakness, night sweats, weight loss. Neuro: Pt denies headache, visual disturbances, syncope or pre-syncope. HEENT: Pt denies ocular discharge or irritation, otalgia, rhinorrhea, pharyngi tis or notable lymphadenopathy. Cardiopulmonary: Pt denies chest pain, SOB, heart palpitations, dyspnea on exertion. Abdominal/GI: Pt denies abdominal pain, n/v/d. : Pt denies dysuria, burning w/ urination, frequency/urgency. Denies new onset urinary or bowel incontinence. MSK: Pt denies myalgia, loss of strength or function in extremities. Neuro: Pt denies new onset weakness, paresthesias. - Related Data Home Medications Medication Instructions Recorded Confirmed metFORMIN HCL [Glucophage] 850 mg PO BID 02/18/14 01/30/19 Aspirin EC [Ecotrin Low Dose] 81 mg PO DAILY 04/08/18 01/30/19 Cetirizine HCl [Zyrtec] 10 mg PO DAILY 04/08/18 01/30/19 Insulin Glargine,Hum.rec.anlog 100 unit SQ BID 04/08/18 01/30/19 [Basaglar Kwikpen U-100] Simvastatin [Zocor] 40 mg PO HS 04/08/18 01/30/19 Triamterene/Hydrochlorothiazid 1 tab PO BID@1000,1400 04/08/18 01/30/19 [Maxzide 37.5-25] HYDROcodone/APAP 10-325MG [[place] 1 tab PO Q8H PRN 06/05/18 01/30/19 10-325] Nystatin 100,000 Unit/gm Powd 1 applic TOPICAL BID 07/04/18 01/30/19 [Mycostatin Powder] ARIPiprazole [Abilify] 5 mg PO HS 10/12/18 01/30/19 Venlafaxine HCl [Effexor XR] 225 mg PO DAILY 10/12/18 01/30/19 traZODone HCL [Desyrel] 100 mg PO HS 10/12/18 01/30/19 Insulin Lispro [Admelog] 35 unit SQ AC-TID 11/25/18 01/30/19 Sulfamethox-Tmp 800-160Mg [Bactrim 1 tab PO Q12HR 01/30/19 01/30/19 Ds] Previous Rx's Medication Instructions Recorded Cyclobenzaprine [Flexeril] 10 mg PO BID tab 02/16/18 Pregabalin [Lyrica] 75 mg PO BID cap 02/16/18 Levothyroxine Sodium [Synthroid] 100 mcg PO DAILY@0630 tab 04/11/18 Cephalexin [Keflex] 500 mg PO Q6HR 10 Days cap 01/25/19 Allergies Allergy/AdvReac Type Severity Reaction Status Date / Time meropenem Allergy Itching Verified 01/30/19 17:37 Penicillins Allergy Anaphylaxis Verified 01/30/19 17:37 Review of Systems ROS Statement: Those systems with pertinent positive or pertinent negative responses have been documented in the HPI. ROS Other: All systems not noted in ROS Statement are negative. Past Medical History Past Medical History: Diabetes Mellitus, Cancer, COPD, Diabetes Mellitus, Eye Disorder, Hyperlipidemia, Liver Disease, Musculoskeletal Disorder, Neurologic Disorder, Osteoarthritis (OA), Sleep Apnea/CPAP/BIPAP, Thyroid Disorder Additional Past Medical History / Comment(s): History of osteomyelitis left #3 toe and left calf: 2004. cervical cancer (in remission.) Cirrhosis of the liver r/t diabetes History of Any Multi-Drug Resistant Organisms: MRSA Date of last positivie culture/infection: 03/20/17 MDRO Source:: MRSA HEEL Past Surgical History: Section, Cholecystectomy, Hysterectomy, Orthopedic Surgery, Tonsillectomy, Tubal Ligation Additional Past Surgical History / Comment(s): Cataracts and laser surgery for glaucoma. Multiple I&D to left foot and lower leg. Past Anesthesia/Blood Transfusion Reactions: No Reported Reaction Past Psychological History: Anxiety, Bipolar, Depression Smoking Status: Former smoker Past Alcohol Use History: None Reported Past Drug Use History: Marijuana - Past Family History Father Family Medical History: Congestive Heart Failure (CHF), Coronary Artery Disease (CAD), Myocardial Infarction ([place]) Mother Family Medical History: Coronary Artery Disease (CAD), CVA/TIA, Dementia, Myocardial Infarction ([place]) General Exam - General Exam Comments Initial Comments: Constitutional: NAD, AOX3, Pt has pleasant affect. HEENT: NC/AT, trachea midline, neck supple, no lymphadenopathy. Posterior pharynx non erythematous, without exudates. External ears appear normal, without discharge. Mucous membranes moist. Eyes PERRLA, EOM intact. There is no scleral icterus. No pallor noted. Cardiopulmonary: RRR, no murmurs, rubs or gallops, no JVD noted. Lungs CTAB in anterior and posterior denney. No peripheral edema. Abdominal exam: Abdomen soft and non-distended. Abdomen non-tender to palpation in all 4 quadrants. Bowel sounds active in LLQ. No hepatosplenomegaly. No ecchymosis Neuro: CN II-XII grossly intact. No nuchal rigidity. No raccon eyes, no dempsey sign, no hemotympanum. No cervical spinal tenderness. MSK: The 3 cm blister noted on heel. 2 x 2 centimeters diabetic ulcer noted. Surrounding erythema. No fluctuance no drainage. No posterior calf tenderness bilaterally, homans sign negative bilaterally. Posterior tibialis and radial pulse +2 bilaterally. Sensation intact in upper and lower extremities. Full active ROM in upper and lower extremities, 5/5 stregnth. Limitations: no limitations Course Vital Signs 01/30/19 01/30/19 17:18 18:34 Temperature 98.5 F Pulse Rate 96 Respiratory 20 18 Rate Blood Pressure 120/61 O2 Sat by Pulse 97 Oximetry Medical Decision Making - Medical Decision Making 63-year-old female patient past history significant for diabetic ulcers, diabetes since he chief complaint of evaluation of right foot wound. This is иван naylor's third time being seen for this. Patient is currently on approximately day 5 of Keflex. Patient is starting her first day of Bactrim today. Patient was that she has a large blister on the heel of her right foot surrounding erythema. Denies any systemic complaints. He was recently discharge from wound clinic approximately 2 weeks ago for asthmatic ulcers. Symptoms improved until this recent blisters and ulcer started. Denies all other complaints. Vital signs are stable, afebrile. Physical exam displayed: The 3 cm blister noted on heel. 2 x 2 centimeters diabetic ulcer noted. Surrounding erythema. No fluctuance no drainage. Laboratoryinvestigations revealed a platelet count of 88. Patient is penicillin ALLERGY was able to take cephalosporins. Patient will be placed on Rocephin, vancomycin. Admitted for further evaluation, wound management, ID consult. Case discussed with Dr. Jensen. - Lab Data Result diagrams: 01/30/19 18:27 01/30/19 18:27 Lab Results 01/30/19 01/30/19 01/30/19 Range/Units 18:27 18:27 18:27 WBC 8.7 (3.8-10.6) k/uL RBC 4.72 (3.80-5.40) m/uL Hgb 13.5 (11.4-16.0) gm/dL Hct 39.9 (34.0-46.0) % MCV 84.5 (80.0-100.0) fL MCH 28.6 (25.0-35.0) pg MCHC 33.8 (31.0-37.0) g/dL RDW 15.6 H (11.5-15.5) % Plt Count 88 L (150-450) k/uL Neutrophils % 75 % Lymphocytes % 15 % Monocytes % 5 % Eosinophils % 3 % Basophils % 1 % Neutrophils # 6.6 (1.3-7.7) k/uL Lymphocytes # 1.3 (1.0-4.8) k/uL Monocytes # 0.4 (0-1.0) k/uL Eosinophils # 0.3 (0-0.7) k/uL Basophils # 0.1 (0-0.2) k/uL Poikilocytosis Slight Sodium 135 L (137-145) mmol/L Potassium 4.4 (3.5-5.1) mmol/L Chloride 100 (98-107) mmol/L Carbon Dioxide 27 (22-30) mmol/L Anion Gap 8 mmol/L BUN 23 H (7-17) mg/dL Creatinine 0.92 (0.52-1.04) mg/dL Est GFR (CKD-EPI)AfAm 78 (>60 ml/min/1.73 sqM) Est GFR (CKD-EPI)NonAf 68 (>60 ml/min/1.73 sqM) Glucose 280 H (74-99) mg/dL Plasma Lactic Acid Marquise 1.6 (0.7-2.0) mmol/L Calcium 9.1 (8.4-10.2) mg/dL Total Bilirubin 0.8 (0.2-1.3) mg/dL AST 27 (14-36) U/L ALT 16 (9-52) U/L Alkaline Phosphatase 92 (38-126) U/L Total Protein 7.5 (6.3-8.2) g/dL Albumin 3.8 (3.5-5.0) g/dL Disposition Clinical Impression: Diabetic foot ulcer Disposition: ADMITTED IP TO THIS [facility] Condition: Serious Is patient prescribed a controlled substance at d/c from ED?: No Referrals: Lilibeth Seymour MD [Primary Care Provider] - 1-2 days
[2019-01-30 18:40] LABS: Basophils # (A) 0.1 k/uL (0-0.2); Basophils % (A) 1 %; Eosinophils # (A) 0.3 k/uL (0-0.7); Eosinophils % (A) 3 %; HCT 39.9 % (34.0-46.0); HGB 13.5 gm/dL (11.4-16.0); Lymphocytes # (A) 1.3 k/uL (1.0-4.8); Lymphocytes % (A) 15 %; MCH 28.6 pg (25.0-35.0); MCHC 33.8 g/dL (31.0-37.0); MCV 84.5 fL (80.0-100.0); Mean Platelet Volume 7.7; Monocytes # (A) 0.4 k/uL (0-1.0); Monocytes % (A) 5 %; Neutrophils # (A) 6.6 k/uL (1.3-7.7); Neutrophils % (A) 75 %; Poikilocytosis Slight; RBC 4.72 m/uL (3.80-5.40); RDW 15.6 % (11.5-15.5); WBC 8.7 k/uL (3.8-10.6)
[2019-01-30 18:42] LABS: Platelet Count 88 k/uL (150-450)
[2019-01-30 18:50] LABS: Albumin 3.8 g/dL (3.5-5.0); Calcium 9.1 mg/dL (8.4-10.2); Potassium 4.4 mmol/L (3.5-5.1); Total Bilirubin 0.8 mg/dL (0.2-1.3); Total Protein 7.5 g/dL (6.3-8.2)
[2019-01-30] MEDS ORDERED: NALOXONE 0.4 MG/ML 1 ML VIAL IV PRN (19:11)
[2019-01-30 20:37] LABS: Glucose,Whole Blood 348 mg/dL (75-99)
[2019-01-30] MEDS: SODIUM CHLORIDE 0.9% 1,000 ML IV SCH (20:45)
[2019-01-30 21:31] VITALS: BMI 46.6
[2019-01-31] MEDS: traZODone HCL 100 MG TAB PO SCH ×2 (00:44→20:58)
[2019-01-31] MEDS: CEPHALEXIN 500 MG CAP PO SCH ×3 (00:44→07:42)
[2019-01-31] MEDS: CYCLOBENZAPRINE 10 MG TAB PO SCH ×3 (00:44→20:57)
[2019-01-31] MEDS: metFORMIN 850 MG TAB PO SCH ×3 (00:45→20:58)
[2019-01-31] MEDS: ARIPiprazole 5 MG TAB PO SCH ×2 (00:45→20:57)
[2019-01-31] MEDS: INSULIN DETEMIR (LEVEMIR) 100 UNIT/ML SYR SQ SCH ×3 (00:46→20:58)
[2019-01-31] MEDS: INSULIN ASPART (NovoLOG) 100 UNIT/ML VIAL SQ SCH ×4 (00:47→17:31)
[2019-01-31 01:06] LABS: Glucose,Whole Blood 438 mg/dL (75-99)
[2019-01-31 03:19] LABS: Glucose,Whole Blood 230 mg/dL (75-99)
[2019-01-31] MEDS: SODIUM CHLORIDE 0.9% 1,000 ML IV SCH ×2 (05:26→17:05)
[2019-01-31] MEDS: LEVOTHYROXINE 100 MCG TAB PO SCH (05:30)
[2019-01-31 07:03] LABS: Glucose,Whole Blood 154 mg/dL (75-99)
[2019-01-31] MEDS: VENLAFAXINE HCL ER 75 MG CAP PO SCH (07:57)
[2019-01-31] MEDS: LORATADINE 10 MG TAB PO SCH (07:57)
[2019-01-31] MEDS: TRIAMTERENE-HCTZ 37.5-25MG 1 EACH TAB PO SCH ×2 (07:57→13:10)
[2019-01-31] MEDS: ASPIRIN 81 MG PO SCH (07:58)
[2019-01-31] MEDS: PREGABALIN 75 MG CAP PO SCH ×2 (07:58→20:58)
[2019-01-31] MEDS ORDERED: SULFAMETHOX-TMP 800-160MG 1 EACH TAB PO SCH (09:00)
[2019-01-31] MEDS: VANCOMYCIN 2,000 MG in SODIUM CHLORIDE 0.9% 500 ML 500 ML IVPB SCH (09:06)
[2019-01-31 09:34] LABS: Basophils % (A) 0 %; Eosinophils # (A) 0.2 k/uL (0-0.7); Eosinophils % (A) 4 %; HCT 37.3 % (34.0-46.0); HGB 12.6 gm/dL (11.4-16.0); Lymphocytes # (A) 0.8 k/uL (1.0-4.8); Lymphocytes % (A) 13 %; MCH 28.6 pg (25.0-35.0); MCHC 33.9 g/dL (31.0-37.0); MCV 84.5 fL (80.0-100.0); Mean Platelet Volume 7.4; Monocytes # (A) 0.3 k/uL (0-1.0); Monocytes % (A) 5 %; Neutrophils # (A) 4.6 k/uL (1.3-7.7); Neutrophils % (A) 76 %; Poikilocytosis Slight; RBC 4.41 m/uL (3.80-5.40); RDW 15.6 % (11.5-15.5); WBC 6.1 k/uL (3.8-10.6)
[2019-01-31 09:41] LABS: Platelet Count 77 k/uL (150-450)
[2019-01-31 09:43] LABS: ALT 21 U/L (9-52); AST 17 U/L (14-36); African American GFR (CKD) >90 (>60 ml/min/1.73 sqM); Albumin 3.3 g/dL (3.5-5.0); Alkaline Phosphatase 74 U/L (38-126); Anion Gap 9 mmol/L; Blood Urea Nitrogen 18 mg/dL (7-17); Calcium 8.7 mg/dL (8.4-10.2); Carbon Dioxide 26 mmol/L (22-30); Chloride 104 mmol/L (98-107); Glucose 222 mg/dL (74-99); Potassium 3.4 mmol/L (3.5-5.1); Sodium 139 mmol/L (137-145); Total Bilirubin 0.5 mg/dL (0.2-1.3); Total Protein 6.7 g/dL (6.3-8.2)
[2019-01-31] MEDS ORDERED: Potassium Replacement Protocol 1 EACH MISC MISCELLANE PRN (10:05)
[2019-01-31] MEDS: NYSTATIN 100,000 UNIT/GM POWD 15 GM TOPICAL SCH ×2 (10:05→20:59)
--- NOTE | 2019-01-31 10:20 | P.HPIM ---
History of Present Illness H&P Date: 01/31/19 Ms. Baker is a 63-year-old patient who presented to the ER with complaints of open wound to right foot. Patient has a past medical history of diabetic ulcers in which she has followed in the wound care clinic. Patient reports that she was discharged possibly 2 weeks ago from the wound care clinic. Patient reports on 01/25/2019 she noticed an open ulcer to her right foot with large blister to bottom of right heel. Patient was started initially on Keflex and then Bactrim was added per ER physician. Patient presented today due to increased pain and drainage from the site. Additional medical history includes diabetes mellitus, osteomyelitis, cervical cancer, COPD, hyperlipidemia, liver disorder, musculoskeletal disorder, neurological disorder, osteoporosis and hypothyroidism. Patient also has a history of anxiety bipolar depression. Foot x-ray completed showing significant soft tissue swelling is progressed compared to old exam no fracture seen and no focal bone destruction. Patient reports she did have a fever couple days ago. She denies any other significant illness. Patient denies chest pain or shortness breath. Patient denies nausea vomiting or diarrhea. Patient denies any urinary burning or frequency. Review of Systems Please refer to HPI otherwise unremarkable Past Medical History Past Medical History: Diabetes Mellitus, Cancer, COPD, Diabetes Mellitus, Eye Disorder, Hyperlipidemia, Liver Disease, Musculoskeletal Disorder, Neurologic Disorder, Osteoarthritis (OA), Sleep Apnea/CPAP/BIPAP, Thyroid Disorder Additional Past Medical History / Comment(s): History of osteomyelitis left #3 toe and left calf: 2004. cervical cancer (in remission.) Cirrhosis of the liver r/t diabetes History of Any Multi-Drug Resistant Organisms: MRSA Date of last positivie culture/infection: 03/20/17 MDRO Source:: MRSA HEEL Past Surgical History: Section, Cholecystectomy, Hysterectomy, Orthopedic Surgery, Tonsillectomy, Tubal Ligation Additional Past Surgical History / Comment(s): Cataracts and laser surgery for glaucoma. Multiple I&D to left foot and lower leg. Past Anesthesia/Blood Transfusion Reactions: No Reported Reaction Past Psychological History: Anxiety, Bipolar, Depression Additional Psychological History / Comment(s): Lives in an apartment with her 3 children. Reformed smoker. Denies alcohol use. Medically disabled. No experience. No international travel. No animals in the home. Relates that bedbug infestation has been cleared up Smoking Status: Former smoker Past Alcohol Use History: None Reported Additional Past Alcohol Use History / Comment(s): Patient was a smoker of 2 packs per day for 21 years and quit in 1992. She does use marijuana on occasional basis. She denies any medical marijuana card. She denies any alcohol use or abuse. She is currently living at home and one adult son is living with her. She has been on disability. She is mostly wheelchair bound when out. walker at home. Medically disabled. No international travel. No animals in the home. Past Drug Use History: Marijuana - Past Family History Father Family Medical History: Congestive Heart Failure (CHF), Coronary Artery Disease (CAD), Myocardial Infarction ([place]) Mother Family Medical History: Coronary Artery Disease (CAD), CVA/TIA, Dementia, Myocardial Infarction ([place]) Medications and Allergies Home Medications Medication Instructions Recorded Confirmed Type metFORMIN HCL [Glucophage] 850 mg PO BID 02/18/14 01/30/19 History Cyclobenzaprine [Flexeril] 10 mg PO BID tab 02/16/18 01/30/19 Rx Pregabalin [Lyrica] 75 mg PO BID cap 02/16/18 01/30/19 Rx Aspirin EC [Ecotrin Low Dose] 81 mg PO DAILY 04/08/18 01/30/19 History Cetirizine HCl [Zyrtec] 10 mg PO DAILY 04/08/18 01/30/19 History Insulin Glargine,Hum.rec.anlog 100 unit SQ BID 04/08/18 01/30/19 History [Basaglar Kwikpen U-100] Simvastatin [Zocor] 40 mg PO HS 04/08/18 01/30/19 History Triamterene/Hydrochlorothiazid 1 tab PO BID@1000,1400 04/08/18 01/30/19 History [Maxzide 37.5-25] Levothyroxine Sodium [Synthroid] 100 mcg PO DAILY@0630 tab 04/11/18 01/30/19 Rx HYDROcodone/APAP 10-325MG [[place] 1 tab PO Q8H PRN 06/05/18 01/30/19 History 10-325] Nystatin 100,000 Unit/gm Powd 1 applic TOPICAL BID 07/04/18 01/30/19 History [Mycostatin Powder] ARIPiprazole [Abilify] 5 mg PO HS 10/12/18 01/30/19 History Venlafaxine HCl [Effexor XR] 225 mg PO DAILY 10/12/18 01/30/19 History traZODone HCL [Desyrel] 100 mg PO HS 10/12/18 01/30/19 History Insulin Lispro [Admelog] 35 unit SQ AC-TID 11/25/18 01/30/19 History Cephalexin [Keflex] 500 mg PO Q6HR 10 Days cap 01/25/19 01/30/19 Rx Sulfamethox-Tmp 800-160Mg [Bactrim 1 tab PO Q12HR 01/30/19 01/30/19 History Ds] Allergies Allergy/AdvReac Type Severity Reaction Status Date / Time meropenem Allergy Itching Verified 01/30/19 17:37 Penicillins Allergy Anaphylaxis Verified 01/30/19 17:37 Physical Exam Vitals: Vital Signs Temp Pulse Pulse Resp BP BP Pulse Ox 01/31/19 04:29 98 F 73 20 139/83 99 01/30/19 21:00 98.4 F 81 20 150/72 99 01/30/19 19:42 98.1 F 81 18 140/61 95 01/30/19 18:34 18 01/30/19 17:18 98.5 F 96 20 120/61 97 Intake and Output 01/30/19 01/31/19 01/31/19 22:59 06:59 14:59 Intake Total 200 100 Balance 200 100 Intake: Oral 200 100 Other: Voiding Method Toilet # Voids 3 Weight 143.335 kg Head normocephalic Neck supple Lungs clear to auscultation bilaterally no wheezing or crackles Heart regular rate and rhythm S1-S2, no rub or gallop Abdomen is soft nontender nondistended positive bowel sounds no hepatosplenomegaly Extremities no edema. Large closed blister noted to right heel with quarter size open wound under blister site Neuro alert and orientated to 3 Results CBC & Chem 7: 01/31/19 09:04 01/31/19 09:04 Labs: Abnormal Lab Results - Last 24 Hours (Table) 01/30/19 01/30/19 01/30/19 Range/Units 18:27 18:27 20:32 RDW 15.6 H (11.5-15.5) % Plt Count 88 L (150-450) k/uL Lymphocytes # (1.0-4.8) k/uL Sodium 135 L (137-145) mmol/L Potassium (3.5-5.1) mmol/L BUN 23 H (7-17) mg/dL Glucose 280 H (74-99) mg/dL POC Glucose (mg/dL) 348 H (75-99) mg/dL Albumin (3.5-5.0) g/dL 01/31/19 01/31/19 01/31/19 Range/Units 00:46 03:16 07:00 RDW (11.5-15.5) % Plt Count (150-450) k/uL Lymphocytes # (1.0-4.8) k/uL Sodium (137-145) mmol/L Potassium (3.5-5.1) mmol/L BUN (7-17) mg/dL Glucose (74-99) mg/dL POC Glucose (mg/dL) 438 H 230 H 154 H (75-99) mg/dL Albumin (3.5-5.0) g/dL 01/31/19 01/31/19 Range/Units 09:04 09:04 RDW 15.6 H (11.5-15.5) % Plt Count 77 L (150-450) k/uL Lymphocytes # 0.8 L (1.0-4.8) k/uL Sodium (137-145) mmol/L Potassium 3.4 L (3.5-5.1) mmol/L BUN 18 H (7-17) mg/dL Glucose 222 H (74-99) mg/dL POC Glucose (mg/dL) (75-99) mg/dL Albumin 3.3 L (3.5-5.0) g/dL Thrombosis Risk Factor Assmnt - Choose All That Apply Each Factor Represents 1 point: Obesity (BMI >25) Each Risk Factor Represents 2 Points: Age 61-74 years Thrombosis Risk Factor Assessment Total Risk Factor Score: 3 Thrombosis Risk Factor Assessment Level: Moderate Risk Assessment and Plan Assessment: 1. Nonhealing Diabetic foot ulcer to right foot. Patient started on vancomycin and Rocephin. Infectious disease consulted. Wound and blood cultures ordered 2. Diabetes mellitus type 2. Home insulin has been resumed. Hemoglobin A1c has been ordered 3. 3. History of right heel ulcer with osteomyelitis. Has followed with wound care clinic 4. History of essential hypertension 5. History of hyperlipidemia. Patient maintained on statin 6. History of hypothyroidism. Synthroid resumed 7. History of depression. Home meds resumed 8. Chronic thrombocytopenia. Patient has been seen by Dr. bowling in the past. From a cytopenia related secondary to multiple comorbidities including liver disease thyromegaly worsening with active infection 9. History of liver cirrhosis 10. History of bipolar depression with resumed 11. Morbid obesity DVT prophylaxis SCDs due to chronic thrombocytopenia. GI prophylaxis Pepcid Time with Patient: Greater than 30 (Greater than 60% of the total time spent in counseling and coordination of care. I performed an examination of the patient and discussed their management with the Nurse Practitioner. I have reviewed the Nurse Practitioner's notes and agree with the documented findings and plan of care)
[2019-01-31] MEDS: POTASSIUM CHLORIDE ER 20 MEQ TAB.ER PO SCH (11:33)
[2019-01-31 12:00] LABS: Glucose,Whole Blood 148 mg/dL (75-99)
[2019-01-31 14:15] LABS: Creatine Kinase 33 U/L (30-135)
[2019-01-31 14:28] LABS: Creatine Kinase MB 0.5 ng/mL (0.0-2.4); Troponin I <0.012 ng/mL (0.000-0.034)
[2019-01-31] MEDS: metroNIDAZOLE-NS PMX 500 MG in SALINE 1 100ML.BAG IVPB SCH ×2 (17:05→23:36)
[2019-01-31 17:19] LABS: Glucose,Whole Blood 77 mg/dL (75-99)
[2019-01-31] MEDS: HYDROcodone/APAP 10-325MG 1 EACH TAB PO PRN (19:17)
[2019-01-31 20:56] LABS: Glucose,Whole Blood 142 mg/dL (75-99)
[2019-01-31] MEDS: ATORVASTATIN 20 MG TAB PO SCH (20:58)
--- NOTE | 2019-01-31 22:22 | P.CONS ---
History of Present Illness - Reason for Consult Consult date: 01/31/19 - Chief Complaint Pressure ulcer right heel - History of Present Illness 63 female with multiple medical troubles with includes diabetes mellitus type 2 poorly controlled, superobesity the tach she had some improvement over the last year, and difficulties with chronic pressure ulcerations to her heels. She's had extensive workup in the past has had ongoing care at the wound healing Center. She was followed here and had total contact cast supplied and had complete healing of the right heel diabetic ulceration. The patient relates within days of being discharged from the wound center going back into her shoe full-time that she noticed some blistering and deformity heel and now it is considerably worse it's open draining there is some odor she started to feel poorly her blood sugars increased because she presented to Hospital. She always has a very complex psychosocial situation, this year her son his daughter and the daughter's mother were longer able to live with her which she found very discouraging because she is very connected to the granddaughter. Apparently because of drug use issues she was removed from the home. At this time she appears to be living just with 2 of her sons. Apparently she has found a new place to live however she's having great difficulties orchestrating the move which is complicated issues in the hospital. With her severe peripheral neuropathy she has no pain to the ulcer site. She does not believe she's had fevers chills or rigors but just does not feel well. Review of Systems HEENT:Denies headache or acute visual change. Denies sinus or mouth discomforts. Denies neck stiffness or pain. Denies significant oral cavity pain. Denies difficulty on swallowing. Lungs: Denies significant shortness of breath, cough, sputum production, or hemoptysis. Cardiovascular: Denies significant shortness of breath, chest pain, chest wall pain, orthopnea, dyspnea on exertion, syncope Gastrointestinal:Denies nausea, vomiting, diarrhea, constipation, hematemesis, melena, hematochezia. No no significant change of bowel habit noticed. Musculoskeletal: She has chronic back pain which is not changed Skin: As per the HPI is developed a new lesion to the right heel Neuro: Denies headache or visual change. Denies any new onset weakness or difficulty with ambulation. Denies falls or seizures. Psychiatric: Chronic anxiety and depression Endocrine: She has ongoing fatigue she's trying to lose some weight does not appear to be significantly less than recent documentation. Past Medical History Past Medical History: Diabetes Mellitus, Cancer, COPD, Diabetes Mellitus, Eye Disorder, Hyperlipidemia, Liver Disease, Musculoskeletal Disorder, Neurologic Disorder, Osteoarthritis (OA), Sleep Apnea/CPAP/BIPAP, Thyroid Disorder Additional Past Medical History / Comment(s): History of osteomyelitis left #3 toe and left calf: 2004. cervical cancer (in remission.) Cirrhosis of the liver r/t diabetes History of Any Multi-Drug Resistant Organisms: MRSA Year Discovered:: 03/20/17 MDRO Source:: MRSA HEEL Past Surgical History: Section, Cholecystectomy, Hysterectomy, Orthopedic Surgery, Tonsillectomy, Tubal Ligation Additional Past Surgical History / Comment(s): Cataracts and laser surgery for glaucoma. Multiple I&D to left foot and lower leg. Past Anesthesia/Blood Transfusion Reactions: No Reported Reaction Past Psychological History: Anxiety, Bipolar, Depression Additional Psychological History / Comment(s): Lives in an apartment with her 3 children. Reformed smoker. Denies alcohol use. Medically disabled. No milit rik experience. No international travel. No animals in the home. Relates that bedbug infestation has been cleared up Smoking Status: Former smoker Past Alcohol Use History: None Reported Additional Past Alcohol Use History / Comment(s): Patient was a smoker of 2 packs per day for 21 years and quit in 1992. She does use marijuana on occasional basis. She denies any medical marijuana card. She denies any alcohol use or abuse. She is currently living at home and one adult son is living with her. She has been on disability. She is mostly wheelchair bound when out. walker at home. Medically disabled. No international travel. No animals in the home. Past Drug Use History: Marijuana - Past Family History Father Family Medical History: Congestive Heart Failure (CHF), Coronary Artery Disease (CAD), Myocardial Infarction (SC) Mother Family Medical History: Coronary Artery Disease (CAD), CVA/TIA, Dementia, Myocardial Infarction (SC) Medications and Allergies Home Medications and Allergies Comment(s): Current Medications Hydrocodone Bitart/Acetaminophen (Nocatee 10) 1 each PO Q8H PRN PRN Reason: Pain Last Admin: 01/31/19 19:17 Dose: 1 each Documented by: Aripiprazole (Abilify) 5 mg PO HS JACKLYN Last Admin: 01/31/19 20:57 Dose: 5 mg Documented by: Aspirin (Aspirin) 81 mg PO DAILY [facility] Last Admin: 01/31/19 07:58 Dose: 81 mg Documented by: Atorvastatin Calcium (Lipitor) 20 mg PO HS [facility] Last Admin: 01/31/19 20:58 Dose: 20 mg Documented by: Cyclobenzaprine HCl (Flexeril) 10 mg PO BID [facility] Last Admin: 01/31/19 20:57 Dose: 10 mg Documented by: Famotidine (Pepcid) 20 mg PO DAILY [facility] Ceftriaxone Sodium 1 gm/ (Sodium Chloride) 50 mls @ 100 mls/hr IVPB Q24HR [facility] Last Admin: 01/31/19 07:58 Dose: 100 mls/hr Documented by: Sodium Chloride (Saline 0.9%) 1,000 mls @ 100 mls/hr IV .Q10H [facility] Last Admin: 01/31/19 17:05 Dose: 100 mls/hr Documented by: Vancomycin HCl 2,000 mg/ (Sodium Chloride) 500 mls @ 167 mls/hr IVPB Q16H [facility] Last Admin: 01/31/19 09:06 Dose: 167 mls/hr Documented by: Metronidazole 500 mg/ IV (Solution) 100 mls @ 100 mls/hr IVPB Q8HR [facility] Last Admin: 01/31/19 17:05 Dose: 100 mls/hr Documented by: Insulin Aspart (Novolog) 35 unit SQ AC-TID [facility] Last Admin: 01/31/19 17:31 Dose: Not Given Documented by: Insulin Detemir (Levemir) 100 unit SQ BID [facility] Last Admin: 01/31/19 20:58 Dose: 50 unit Documented by: Levothyroxine Sodium (Synthroid) 100 mcg PO DAILY@0630 [facility] Last Admin: 01/31/19 05:30 Dose: 100 mcg Documented by: Loratadine (Claritin) 10 mg PO DAILY [facility] Last Admin: 01/31/19 07:57 Dose: 10 mg Documented by: Metformin HCl (Glucophage) 850 mg PO BID [facility] Last Admin: 01/31/19 20:58 Dose: 850 mg Documented by: Miscellaneous Information (Potassium Per Protocol) 1 each MISCELLANE DAILY PRN; Protocol PRN Reason: Per Protocol Naloxone HCl (Narcan) 0.2 mg IV Q2M PRN PRN Reason: Opioid Reversal Nystatin (Mycostatin Powder) 1 applic TOPICAL BID [facility] Last Admin: 01/31/19 20:59 Dose: 1 applic Documented by: Pregabalin (Lyrica) 75 mg PO BID [facility] Last Admin: 01/31/19 20:58 Dose: 75 mg Documented by: Trazodone HCl (Desyrel) 100 mg PO HS [facility] Last Admin: 01/31/19 20:58 Dose: 100 mg Documented by: Triamterene/HCTZ (Maxzide-25) 1 each PO BID@1000,1400 [facility] Last Admin: 01/31/19 13:10 Dose: 1 each Documented by: Venlafaxine HCl (Effexor Xr) 225 mg PO DAILY [facility] Last Admin: 01/31/19 07:57 Dose: 225 mg Documented by: Home Medications Medication Instructions Recorded Confirmed Type metFORMIN HCL [Glucophage] 850 mg PO BID 02/18/14 01/30/19 History Cyclobenzaprine [Flexeril] 10 mg PO BID tab 02/16/18 01/30/19 Rx Pregabalin [Lyrica] 75 mg PO BID cap 02/16/18 01/30/19 Rx Aspirin EC [Ecotrin Low Dose] 81 mg PO DAILY 04/08/18 01/30/19 History Cetirizine HCl [Zyrtec] 10 mg PO DAILY 04/08/18 01/30/19 History Insulin Glargine,Hum.rec.anlog 100 unit SQ BID 04/08/18 01/30/19 History [Basaglar Kwikpen U-100] Simvastatin [Zocor] 40 mg PO HS 04/08/18 01/30/19 History Triamterene/Hydrochlorothiazid 1 tab PO BID@1000,1400 04/08/18 01/30/19 History [Maxzide 37.5-25] Levothyroxine Sodium [Synthroid] 100 mcg PO DAILY@0630 tab 04/11/18 01/30/19 Rx HYDROcodone/APAP 10-325MG [Nocatee 1 tab PO Q8H PRN 06/05/18 01/30/19 History 10-325] Nystatin 100,000 Unit/gm Powd 1 applic TOPICAL BID 07/04/18 01/30/19 History [Mycostatin Powder] ARIPiprazole [Abilify] 5 mg PO HS 10/12/18 01/30/19 History Venlafaxine HCl [Effexor XR] 225 mg PO DAILY 10/12/18 01/30/19 History traZODone HCL [Desyrel] 100 mg PO HS 10/12/18 01/30/19 History Insulin Lispro [Admelog] 35 unit SQ AC-TID 11/25/18 01/30/19 History Cephalexin [Keflex] 500 mg PO Q6HR 10 Days cap 01/25/19 01/30/19 Rx Sulfamethox-Tmp 800-160Mg [Bactrim 1 tab PO Q12HR 01/30/19 01/30/19 History Ds] Allergies Allergy/AdvReac Type Severity Reaction Status Date / Time meropenem Allergy Itching Verified 01/30/19 17:37 Penicillins Allergy Anaphylaxis Verified 01/30/19 17:37 Physical Exam Vitals: Vital Signs Temp Pulse Resp BP Pulse Ox 01/31/19 14:11 98.1 F 96 16 131/74 97 01/31/19 10:50 16 01/31/19 04:29 98 F 73 20 139/83 99 Intake and Output 01/31/19 01/31/19 01/31/19 06:59 14:59 22:59 Intake Total 100 Balance 100 Intake: Oral 100 Other: Voiding Method Toilet Toilet # Voids 3 3 Weight 143.335 kg Pleasant but anxious superobese woman she is not in distress HEENT: Anicteric conjunctiva are pink and moist nasal mucosa grossly intact without significant lesions, there is no thrush. Neck: The neck is supple without significant lymphadenopathy or thyromegaly. Lungs: There is symmetrical air entry, expiratory wheezes are scattered without jovi bronchial sounds all dullness or egophony Heart: Regular rate and rhythm with an audible S1-S2, soft S4. There is no significant murmur click or rub, PMI was nondisplaced. Abdomen: Obese Positive bowel sounds soft and nontender without palpable masses or organomegaly. There was no guarding or rebound. Extremities: The upper extremities have excellent pulses they are symmetric, no significant petechiae or telangiectasia. No splinter hemorrhages were noted. The lower extremities evidence of some chronic edema. Left foot without acute abnormality. The right heel shows evidence the recent injury with a large blister. There is some odor in This Area Will Be Debrided. There Is Some Surrounding Erythema. Neuro: Awake alert oriented to person place and time. There are no acute new gross focal sensory motor deficits. Patient has dense peripheral neuropathy with no sensation ankle distally bilaterally Results CBC & Chem 7: 01/31/19 09:04 01/31/19 09:04 Labs: Abnormal Lab Results - Last 24 Hours (Table) 01/31/19 01/31/19 01/31/19 Range/Units 00:46 03:16 07:00 RDW (11.5-15.5) % Plt Count (150-450) k/uL Lymphocytes # (1.0-4.8) k/uL Potassium (3.5-5.1) mmol/L BUN (7-17) mg/dL Glucose (74-99) mg/dL POC Glucose (mg/dL) 438 H 230 H 154 H (75-99) mg/dL Hemoglobin A1c (4.0-6.0) % Albumin (3.5-5.0) g/dL 01/31/19 01/31/19 01/31/19 Range/Units 09:04 09:04 09:04 RDW 15.6 H (11.5-15.5) % Plt Count 77 L (150-450) k/uL Lymphocytes # 0.8 L (1.0-4.8) k/uL Potassium 3.4 L (3.5-5.1) mmol/L BUN 18 H (7-17) mg/dL Glucose 222 H (74-99) mg/dL POC Glucose (mg/dL) (75-99) mg/dL Hemoglobin A1c 11.0 H (4.0-6.0) % Albumin 3.3 L (3.5-5.0) g/dL 01/31/19 01/31/19 Range/Units 11:59 20:54 RDW (11.5-15.5) % Plt Count (150-450) k/uL Lymphocytes # (1.0-4.8) k/uL Potassium (3.5-5.1) mmol/L BUN (7-17) mg/dL Glucose (74-99) mg/dL POC Glucose (mg/dL) 148 H 142 H (75-99) mg/dL Hemoglobin A1c (4.0-6.0) % Albumin (3.5-5.0) g/dL Microbiology - Last 24 Hours (Table) 01/30/19 18:27 Blood Culture - Preliminary Blood No Growth after 24 hours 01/31/19 05:14 Gram Stain - Preliminary Foot - Right Wound Culture - Preliminary Laboratory Results WBC 6.1 k/uL (3.8-10.6) 01/31/19 09:04 RBC 4.41 m/uL (3.80-5.40) 01/31/19 09:04 Hgb 12.6 gm/dL (11.4-16.0) 01/31/19 09:04 Hct 37.3 % (34.0-46.0) 01/31/19 09:04 MCV 84.5 fL (80.0-100.0) 01/31/19 09:04 MCH 28.6 pg (25.0-35.0) 01/31/19 09:04 MCHC 33.9 g/dL (31.0-37.0) 01/31/19 09:04 RDW 15.6 % (11.5-15.5) H 01/31/19 09:04 Plt Count 77 k/uL (150-450) L 01/31/19 09:04 Neutrophils % 76 % 01/31/19 09:04 Lymphocytes % 13 % 01/31/19 09:04 Monocytes % 5 % 01/31/19 09:04 Eosinophils % 4 % 01/31/19 09:04 Basophils % 0 % 01/31/19 09:04 Neutrophils # 4.6 k/uL (1.3-7.7) 01/31/19 09:04 Lymphocytes # 0.8 k/uL (1.0-4.8) L 01/31/19 09:04 Monocytes # 0.3 k/uL (0-1.0) 01/31/19 09:04 Eosinophils # 0.2 k/uL (0-0.7) 01/31/19 09:04 Basophils # 0.0 k/uL (0-0.2) 01/31/19 09:04 Poikilocytosis Slight 01/31/19 09:04 Sodium 139 mmol/L (137-145) 01/31/19 09:04 Potassium 3.4 mmol/L (3.5-5.1) L 01/31/19 09:04 Chloride 104 mmol/L (98-107) 01/31/19 09:04 Carbon Dioxide 26 mmol/L (22-30) 01/31/19 09:04 Anion Gap 9 mmol/L 01/31/19 09:04 BUN 18 mg/dL (7-17) H 01/31/19 09:04 Creatinine 0.73 mg/dL (0.52-1.04) 01/31/19 09:04 Est GFR (CKD-EPI)AfAm >90 (>60 ml/min/1.73 sqM) 01/31/19 09:04 Est GFR (CKD-EPI)NonAf 89 (>60 ml/min/1.73 sqM) 01/31/19 09:04 Glucose 222 mg/dL (74-99) H 01/31/19 09:04 POC Glucose (mg/dL) 142 mg/dL (75-99) H 01/31/19 20:54 POC Glu [employer] Kaylee Gonsalez 01/31/19 20:[address] Glu mg/dL 269 01/31/19 09:04 Hemoglobin A1c 11.0 % (4.0-6.0) H 01/31/19 09:04 Plasma Lactic Acid Marquise 1.6 mmol/L (0.7-2.0) 01/30/19 18:27 Calcium 8.7 mg/dL (8.4-10.2) 01/31/19 09:04 Total Bilirubin 0.5 mg/dL (0.2-1.3) 01/31/19 09:04 AST 17 U/L (14-36) 01/31/19 09:04 ALT 21 U/L (9-52) 01/31/19 09:04 Alkaline Phosphatase 74 U/L (38-126) 01/31/19 09:04 Total Creatine Kinase 33 U/L (30-135) 01/31/19 13:15 CK-MB (CK-2) 0.5 ng/mL (0.0-2.4) 01/31/19 13:15 CK-MB (CK-2) Rel Index 1.5 01/31/19 13:15 Troponin I <0.012 ng/mL (0.000-0.034) 01/31/19 13:15 Total Protein 6.7 g/dL (6.3-8.2) 01/31/19 09:04 Albumin 3.3 g/dL (3.5-5.0) L 01/31/19 09:04 Microbiology 01/30/19 18:27 Blood Blood Culture - Preliminary No Growth after 24 hours 01/31/19 05:14 Foot - Right Gram Stain - Preliminary 01/31/19 05:14 Foot - Right Wound Culture - Preliminary Assessment and Plan (1) Diabetic ulcer of right foot associated with diabetes mellitus due to underlying condition, with fat layer exposed Current Visit: No Status: Acute Code(s): E08.621 - DIABETES MELLITUS DUE TO UNDERLYING CONDITION W FOOT ULCER; L97.512 - NON-PRS CHRONIC ULCER OTH PRT RIGHT FOOT W FAT LAYER EXPOSED SNOMED Code(s): 417054196 (2) Morbid obesity with BMI of 50.0-59.9, adult Narrative/Plan: 63-year-old woman who has a history of diabetes mellitus type 2 poorly controlled, obesity and recurrent ulcerations to her right foot. She's been recently found wound healing center a total contact cast was being utilized, and allow complete healing of her ulceration. Shortly after coming out of the cast going into her shoe she again has are ulcerated now presents to Hospital. Cultures obtained. Antibiotic therapy with Rocephin is being utilized with a known history of her Klebsiella, Flagyl was also added with concerns to any anaerobic infection also occurring. Local wound care is with jim[facility]. She needs offloaded while she is in hospital. She'll need to follow back to the wound healing center after discharge he will need alternative footgear after discharge to allow more sustained healing of her ulcerations. While in Hospital improved glucose control, add a multivitamin and monitor cultures. Current Visit: No Status: Chronic Code(s): E66.01 - MORBID (SEVERE) OBESITY DUE TO EXCESS CALORIES; Z68.43 - BODY MASS INDEX (BMI) 50.0-59.9, ADULT SNOMED Code(s): 647648019
[2019-02-01] MEDS: VANCOMYCIN 2,000 MG in SODIUM CHLORIDE 0.9% 500 ML 500 ML IVPB SCH ×2 (00:54→17:02)
[2019-02-01] MEDS: SODIUM CHLORIDE 0.9% 1,000 ML IV SCH ×3 (00:59→20:31)
[2019-02-01] MEDS: LEVOTHYROXINE 100 MCG TAB PO SCH (05:16)
[2019-02-01 07:33] LABS: Glucose,Whole Blood 138 mg/dL (75-99)
[2019-02-01 07:48] LABS: Basophils % (A) 1 %; Eosinophils # (A) 0.2 k/uL (0-0.7); Eosinophils % (A) 4 %; HCT 35.3 % (34.0-46.0); HGB 11.8 gm/dL (11.4-16.0); Hypochromasia Slight; Lymphocytes % (A) 19 %; MCH 28.9 pg (25.0-35.0); MCHC 33.4 g/dL (31.0-37.0); MCV 86.7 fL (80.0-100.0); Mean Platelet Volume 7.7; Monocytes # (A) 0.3 k/uL (0-1.0); Monocytes % (A) 6 %; Neutrophils # (A) 3.5 k/uL (1.3-7.7); Neutrophils % (A) 67 %; Poikilocytosis Slight; RBC 4.07 m/uL (3.80-5.40); RDW 15.7 % (11.5-15.5); WBC 5.1 k/uL (3.8-10.6)
[2019-02-01 07:50] LABS: ALT 22 U/L (9-52); AST 19 U/L (14-36); African American GFR (CKD) >90 (>60 ml/min/1.73 sqM); Albumin 2.9 g/dL (3.5-5.0); Alkaline Phosphatase 61 U/L (38-126); Anion Gap 7 mmol/L; Blood Urea Nitrogen 19 mg/dL (7-17); Calcium 8.5 mg/dL (8.4-10.2); Carbon Dioxide 26 mmol/L (22-30); Chloride 107 mmol/L (98-107); Glucose 138 mg/dL (74-99); Potassium 3.7 mmol/L (3.5-5.1); Sodium 140 mmol/L (137-145); Total Bilirubin 0.5 mg/dL (0.2-1.3); Total Protein 6.2 g/dL (6.3-8.2)
[2019-02-01 08:01] LABS: Anisocytosis (M) Present; Platelet Count 68 k/uL (150-450)
[2019-02-01] MEDS: ASPIRIN 81 MG PO SCH (08:22)
[2019-02-01] MEDS: metFORMIN 850 MG TAB PO SCH ×2 (08:22→20:30)
[2019-02-01] MEDS: metroNIDAZOLE-NS PMX 500 MG in SALINE 1 100ML.BAG IVPB SCH ×3 (08:22→23:52)
[2019-02-01] MEDS: MULTIVITAMINS, THERA 1 EACH TAB PO SCH (08:22)
[2019-02-01] MEDS: CYCLOBENZAPRINE 10 MG TAB PO SCH ×2 (08:22→20:30)
[2019-02-01] MEDS: VENLAFAXINE HCL ER 75 MG CAP PO SCH (08:22)
[2019-02-01] MEDS: PREGABALIN 75 MG CAP PO SCH ×2 (08:22→20:31)
[2019-02-01] MEDS: FAMOTIDINE 20 MG TAB PO SCH (08:22)
[2019-02-01] MEDS: TRIAMTERENE-HCTZ 37.5-25MG 1 EACH TAB PO SCH ×2 (08:22→14:28)
[2019-02-01] MEDS: LORATADINE 10 MG TAB PO SCH (08:22)
[2019-02-01] MEDS: INSULIN ASPART (NovoLOG) 100 UNIT/ML VIAL SQ SCH ×3 (08:23→17:04)
[2019-02-01] MEDS: INSULIN DETEMIR (LEVEMIR) 100 UNIT/ML SYR SQ SCH ×2 (08:24→20:31)
[2019-02-01] MEDS: NYSTATIN 100,000 UNIT/GM POWD 15 GM TOPICAL SCH ×2 (08:34→20:31)
[2019-02-01 12:22] LABS: Glucose,Whole Blood 151 mg/dL (75-99)
--- NOTE | 2019-02-01 15:01 | P.PN ---
Subjective Progress Note Date: 02/01/19 Ms. Baker is a 63-year-old patient who presented to the ER with complaints of open wound to right foot. Patient has a past medical history of diabetic ulcers in which she has followed in the wound care clinic. Patient reports that she was discharged possibly 2 weeks ago from the wound care clinic. Patient reports on 01/25/2019 she noticed an open ulcer to her right foot with large blister to bottom of right heel. Patient was started initially on Keflex and then Bactrim was added per ER physician. Patient presented today due to increased pain and drainage from the site. Additional medical history includes diabetes mellitus, osteomyelitis, cervical cancer, COPD, hyperlipidemia, liver disorder, musculoskeletal disorder, neurological disorder, osteoporosis and hypothyroidism. Patient also has a history of anxiety bipolar depression. Foot x-ray completed showing significant soft tissue swelling is progressed compared to old exam no fracture seen and no focal bone destruction. Patient reports she did have a fever couple days ago. She denies any other significant illness. Patient denies chest pain or shortness breath. Patient denies nausea vomiting or diarrhea. Patient denies any urinary burning or frequency. On 02/01/2019 patient was seen and examined on the medical floor, she is alert and oriented 3 in no apparent distress, she is complaining of pain in her foot otherwise no complaints, there is no fever or chills no headache or dizziness no chest pain no shortness of breath no cough no nausea or vomiting no abdominal pain no diarrhea and no urinary symptoms Objective - Vital Signs Vital signs: Vital Signs Temp 97.4 F L 02/01/19 12:20 Pulse 73 02/01/19 12:20 Resp 20 02/01/19 12:20 BP 140/65 02/01/19 12:20 Pulse Ox 94 L 02/01/19 12:20 Intake & Output 01/31/19 02/01/19 02/01/19 18:59 06:59 18:59 Weight 143.335 kg Other: Voiding Method Toilet Toilet # Voids 3 1 1 - Exam In general patient is alert and oriented 3 in no apparent distress Head normocephalic and atraumatic Neck supple no JVD no goiter Lungs clear to auscultation bilaterally no wheezing or crackles Heart regular rate and rhythm S1-S2, no rub or gallop Abdomen is soft nontender nondistended positive bowel sounds no hepatosplenomegaly Extremities no edema. Large closed blister noted to right heel with quarter size open wound under blister site Neuro no gross focal neurological deficit - Labs CBC & Chem 7: 02/01/19 06:54 02/01/19 06:54 Labs: Abnormal Lab Results - Last 24 Hours (Table) 01/31/19 01/31/19 02/01/19 Range/Units 09:04 20:54 06:54 RDW 15.7 H (11.5-15.5) % Plt Count 68 L (150-450) k/uL BUN (7-17) mg/dL Glucose (74-99) mg/dL POC Glucose (mg/dL) 142 H (75-99) mg/dL Hemoglobin A1c 11.0 H (4.0-6.0) % Total Protein (6.3-8.2) g/dL Albumin (3.5-5.0) g/dL 02/01/19 02/01/19 02/01/19 Range/Units 06:54 07:08 12:17 RDW (11.5-15.5) % Plt Count (150-450) k/uL BUN 19 H (7-17) mg/dL Glucose 138 H (74-99) mg/dL POC Glucose (mg/dL) 138 H 151 H (75-99) mg/dL Hemoglobin A1c (4.0-6.0) % Total Protein 6.2 L (6.3-8.2) g/dL Albumin 2.9 L (3.5-5.0) g/dL Microbiology - Last 24 Hours (Table) 01/31/19 05:14 Gram Stain - Preliminary Foot - Right Wound Culture - Preliminary Presumptive MRSA Gram Neg Bacilli 01/30/19 18:27 Blood Culture - Preliminary Blood No Growth after 24 hours Assessment and Plan Plan: 1. Nonhealing Diabetic foot ulcer to right foot. Patient started on vancomycin and Rocephin. Infectious disease consulted. Wound and blood cultures ordered 2. Diabetes mellitus type 2. Home insulin has been resumed. Hemoglobin A1c h as been ordered 3. 3. History of right heel ulcer with osteomyelitis. Has followed with wound car e clinic 4. History of essential hypertension 5. History of hyperlipidemia. Patient maintained on statin 6. History of hypothyroidism. Synthroid resumed 7. History of depression. Home meds resumed 8. Chronic thrombocytopenia. Patient has been seen by Dr. bowling in the past. From a cytopenia related secondary to multiple comorbidities including liver disease thyromegaly worsening with active infection 9. History of liver cirrhosis 10. History of bipolar depression with resumed 11. Morbid obesity DVT prophylaxis SCDs due to chronic thrombocytopenia. GI prophylaxis Pepcid. Continue current management awaiting further input from infectious disease
[2019-02-01] MEDS: HYDROcodone/APAP 10-325MG 1 EACH TAB PO PRN (17:18)
[2019-02-01 17:21] LABS: Glucose,Whole Blood 175 mg/dL (75-99)
[2019-02-01 17:21] LABS: Glucose,Whole Blood 60 mg/dL (75-99)
[2019-02-01 19:02] LABS: Glucose,Whole Blood 130 mg/dL (75-99)
[2019-02-01 20:26] LABS: Glucose,Whole Blood 146 mg/dL (75-99)
[2019-02-01] MEDS: ARIPiprazole 5 MG TAB PO SCH (20:30)
[2019-02-01] MEDS: traZODone HCL 100 MG TAB PO SCH (20:31)
[2019-02-01] MEDS: ATORVASTATIN 20 MG TAB PO SCH (20:31)
--- NOTE | 2019-02-01 20:56 | P.PN ---
Subjective Progress Note Date: 02/01/19 63 female with multiple medical troubles with includes diabetes mellitus type 2 poorly controlled, superobesity the tach she had some improvement over the last year, and difficulties with chronic pressure ulcerations to her heels. She's had extensive workup in the past has had ongoing care at the wound healing Center. She was followed here and had total contact cast supplied and had complete healing of the right heel diabetic ulceration. The patient relates within days of being discharged from the wound center going back into her shoe full-time that she noticed some blistering and deformity heel and now it is considerably worse it's open draining there is some odor she started to feel poorly her blood sugars increased because she presented to Hospital. She always has a very complex psychosocial situation, this year her son his daughter and the daughter's mother were longer able to live with her which she found very discouraging because she is very connected to the granddaughter. Apparently because of drug use issues she was removed from the home. At this time she appears to be living just with 2 of her sons. Apparently she has found a new place to live however she's having great difficulties orchestrating the move which is complicated issues in the hospital. With her severe peripheral neuropathy she has no pain to the ulcer site. She does not believe she's had fevers chills or rigors but just does not feel well. 02/01/2019 today the patient is feeling considerably better. Her fevers and chills have resolved. She is not having discomfort. She is able to eat and her blood sugars have improved. Objective - Vital Signs Vital signs: Vital Signs Temp 97.4 F L 02/01/19 12:20 Pulse 73 02/01/19 12:20 Resp 20 02/01/19 12:20 BP 140/65 02/01/19 12:20 Pulse Ox 94 L 02/01/19 12:20 Intake & Output 02/01/19 02/01/19 02/02/19 06:59 18:59 05:59 Other: Voiding Method Toilet # Voids 1 2 - Exam Pleasant but anxious superobese woman she is not in distress HEENT: Anicteric conjunctiva are pink and moist nasal mucosa grossly intact without significant lesions, there is no thrush. Neck: The neck is supple without significant lymphadenopathy or thyromegaly. Lungs: There is symmetrical air entry, expiratory wheezes are scattered without jovi bronchial sounds all dullness or egophony Heart: Regular rate and rhythm with an audible S1-S2, soft S4. There is no significant murmur click or rub, PMI was nondisplaced. Abdomen: Obese Positive bowel sounds soft and nontender without palpable masses or organomegaly. There was no guarding or rebound. Extremities: The upper extremities have excellent pulses they are symmetric, no significant petechiae or telangiectasia. No splinter hemorrhages were noted. The lower extremities evidence of some chronic edema. Left foot without acute abnormality. The right heel shows evidence the recent injury with a large blister. There is some odor in the surrounding erythema has improved today as has drainage Neuro: Awake alert oriented to person place and time. There are no acute new gross focal sensory motor deficits. Patient has dense peripheral neuropathy with no sensation ankle distally bilaterally - Labs CBC & Chem 7: 02/01/19 06:54 02/01/19 06:54 Labs: Abnormal Lab Results - Last 24 Hours (Table) 01/31/19 02/01/19 02/01/19 Range/Units 20:54 06:54 06:54 RDW 15.7 H (11.5-15.5) % Plt Count 68 L (150-450) k/uL BUN 19 H (7-17) mg/dL Glucose 138 H (74-99) mg/dL POC Glucose (mg/dL) 142 H (75-99) mg/dL Total Protein 6.2 L (6.3-8.2) g/dL Albumin 2.9 L (3.5-5.0) g/dL 02/01/19 02/01/19 02/01/19 Range/Units 07:08 12:17 17:02 RDW (11.5-15.5) % Plt Count (150-450) k/uL BUN (7-17) mg/dL Glucose (74-99) mg/dL POC Glucose (mg/dL) 138 H 151 H 60 L (75-99) mg/dL Total Protein (6.3-8.2) g/dL Albumin (3.5-5.0) g/dL 02/01/19 02/01/19 02/01/19 Range/Units 17:19 18:59 20:23 RDW (11.5-15.5) % Plt Count (150-450) k/uL BUN (7-17) mg/dL Glucose (74-99) mg/dL POC Glucose (mg/dL) 175 H 130 H 146 H (75-99) mg/dL Total Protein (6.3-8.2) g/dL Albumin (3.5-5.0) g/dL Microbiology - Last 24 Hours (Table) 01/30/19 18:27 Blood Culture - Preliminary Blood No Growth after 48 hours 01/31/19 05:14 Gram Stain - Preliminary Foot - Right Wound Culture - Preliminary Presumptive MRSA Gram Neg Bacilli Laboratory Results WBC 5.1 k/uL (3.8-10.6) 02/01/19 06:54 RBC 4.07 m/uL (3.80-5.40) 02/01/19 06:54 Hgb 11.8 gm/dL (11.4-16.0) 02/01/19 06:54 Hct 35.3 % (34.0-46.0) 02/01/19 06:54 MCV 86.7 fL (80.0-100.0) 02/01/19 06:54 MCH 28.9 pg (25.0-35.0) 02/01/19 06:54 MCHC 33.4 g/dL (31.0-37.0) 02/01/19 06:54 RDW 15.7 % (11.5-15.5) H 02/01/19 06:54 Plt Count 68 k/uL (150-450) L 02/01/19 06:54 Neutrophils % 67 % 02/01/19 06:54 Lymphocytes % 19 % 02/01/19 06:54 Monocytes % 6 % 02/01/19 06:54 Eosinophils % 4 % 02/01/19 06:54 Basophils % 1 % 02/01/19 06:54 Neutrophils # 3.5 k/uL (1.3-7.7) 02/01/19 06:54 Lymphocytes # 1.0 k/uL (1.0-4.8) 02/01/19 06:54 Monocytes # 0.3 k/uL (0-1.0) 02/01/19 06:54 Eosinophils # 0.2 k/uL (0-0.7) 02/01/19 06:54 Basophils # 0.0 k/uL (0-0.2) 02/01/19 06:54 Manual Slide Review Performed 02/01/19 06:54 Hypochromasia Slight 02/01/19 06:54 Poikilocytosis Slight 02/01/19 06:54 Anisocytosis (manual) Present 02/01/19 06:54 Sodium 140 mmol/L (137-145) 02/01/19 06:54 Potassium 3.7 mmol/L (3.5-5.1) 02/01/19 06:54 Chloride 107 mmol/L (98-107) 02/01/19 06:54 Carbon Dioxide 26 mmol/L (22-30) 02/01/19 06:54 Anion Gap 7 mmol/L 02/01/19 06:54 BUN 19 mg/dL (7-17) H 02/01/19 06:54 Creatinine 0.79 mg/dL (0.52-1.04) 02/01/19 06:54 Est GFR (CKD-EPI)AfAm >90 (>60 ml/min/1.73 sqM) 02/01/19 06:54 Est GFR (CKD-EPI)NonAf 82 (>60 ml/min/1.73 sqM) 02/01/19 06:54 Glucose 138 mg/dL (74-99) H 02/01/19 06:54 POC Glucose (mg/dL) 146 mg/dL (75-99) H 02/01/19 20:23 POC Glu Poured Pipe Maker Kaylee Gonsalez 02/01/19 20:[address] Glu mg/dL 269 01/31/19 09:04 Hemoglobin A1c 11.0 % (4.0-6.0) H 01/31/19 09:04 Plasma Lactic Acid Marquise 1.6 mmol/L (0.7-2.0) 01/30/19 18:27 Calcium 8.5 mg/dL (8.4-10.2) 02/01/19 06:54 Total Bilirubin 0.5 mg/dL (0.2-1.3) 02/01/19 06:54 AST 19 U/L (14-36) 02/01/19 06:54 ALT 22 U/L (9-52) 02/01/19 06:54 Alkaline Phosphatase 61 U/L (38-126) 02/01/19 06:54 Total Creatine Kinase 33 U/L (30-135) 01/31/19 13:15 CK-MB (CK-2) 0.5 ng/mL (0.0-2.4) 01/31/19 13:15 CK-MB (CK-2) Rel Index 1.5 01/31/19 13:15 Troponin I <0.012 ng/mL (0.000-0.034) 01/31/19 13:15 Total Protein 6.2 g/dL (6.3-8.2) L 02/01/19 06:54 Albumin 2.9 g/dL (3.5-5.0) L 02/01/19 06:54 Microbiology 01/30/19 18:27 Blood Blood Culture - Preliminary No Growth after 48 hours 01/31/19 05:14 Foot - Right Gram Stain - Preliminary 01/31/19 05:14 Foot - Right Wound Culture - Preliminary Presumptive MRSA Gram Neg Bacilli Assessment and Plan (1) Diabetic ulcer of right foot associated with diabetes mellitus due to underlying condition, with fat layer exposed Current Visit: No Status: Acute Code(s): E08.621 - DIABETES MELLITUS DUE TO UNDERLYING CONDITION W FOOT ULCER; L97.512 - NON-PRS CHRONIC ULCER OTH PRT RIGHT FOOT W FAT LAYER EXPOSED SNOMED Code(s): 279179926 (2) Morbid obesity with BMI of 50.0-59.9, adult Narrative/Plan: 63-year-old woman who has a history of diabetes mellitus type 2 poorly controlled, obesity and recurrent ulcerations to her right foot. She's been recently found wound healing center a total contact cast was being utilized, and allow complete healing of her ulceration. Shortly after coming out of the cast going into her shoe she again has are ulcerated now presents to Hospital. Cul tures obtained. Antibiotic therapy with Rocephin is being utilized with a known history of her Klebsiella, Flagyl was also added with concerns to any anaerobic infection also occurring. Local wound care is with [facility]. She needs offloaded while she is in hospital. She'll need to follow back to the wound healing center after discharge he will need alternative footgear after discharge to allow more sustained healing of her ulcerations. While in Hospital improved glucose control, add a multivitamin and monitor cultures. 02/01/2019 the wound culture showed evidence of presumptive MRSA and gram- negative bacilli. Continue vancomycin therapy and Rocephin and metronidazole for now. Await final cultures to determine potential options for antibiotics at discharge. Bone scan is requested to evaluate the possibility of underlying osteomyelitis that he'll. She'll follow back up in the wound healing Center and will need further maneuvers for offloading such as a total contact cast it may need to be in tejon walker or similar for a more long-term fix. Current Visit: No Status: Chronic Code(s): E66.01 - MORBID (SEVERE) OBESITY DUE TO EXCESS CALORIES; Z68.43 - BODY MASS INDEX (BMI) 50.0-59.9, ADULT SNOMED Code(s): 158747885
[2019-02-02] MEDS: HYDROcodone/APAP 10-325MG 1 EACH TAB PO PRN ×3 (01:39→23:07)
[2019-02-02] MEDS: LEVOTHYROXINE 100 MCG TAB PO SCH (05:45)
[2019-02-02] MEDS ORDERED: VANCOMYCIN TROUGH DUE 1 EACH MISC MISCELLANE ONE (07:00)
[2019-02-02 07:14] LABS: Glucose,Whole Blood 170 mg/dL (75-99)
[2019-02-02] MEDS: CYCLOBENZAPRINE 10 MG TAB PO SCH ×2 (07:55→21:18)
[2019-02-02] MEDS: PREGABALIN 75 MG CAP PO SCH ×2 (07:55→21:17)
[2019-02-02] MEDS: ASPIRIN 81 MG PO SCH (07:55)
[2019-02-02] MEDS: MULTIVITAMINS, THERA 1 EACH TAB PO SCH (07:55)
[2019-02-02] MEDS: FAMOTIDINE 20 MG TAB PO SCH (07:55)
[2019-02-02] MEDS: LORATADINE 10 MG TAB PO SCH (07:55)
[2019-02-02] MEDS: metFORMIN 850 MG TAB PO SCH ×2 (07:56→21:18)
[2019-02-02 07:57] LABS: Basophils % (A) 1 %; Eosinophils # (A) 0.2 k/uL (0-0.7); Eosinophils % (A) 4 %; HCT 36.1 % (34.0-46.0); HGB 11.9 gm/dL (11.4-16.0); Hypochromasia Slight; Lymphocytes # (A) 0.9 k/uL (1.0-4.8); Lymphocytes % (A) 17 %; MCH 28.6 pg (25.0-35.0); MCHC 32.9 g/dL (31.0-37.0); MCV 86.7 fL (80.0-100.0); Mean Platelet Volume 7.6; Monocytes # (A) 0.3 k/uL (0-1.0); Monocytes % (A) 6 %; Neutrophils # (A) 3.7 k/uL (1.3-7.7); Neutrophils % (A) 70 %; Poikilocytosis Slight; RBC 4.16 m/uL (3.80-5.40); RDW 15.6 % (11.5-15.5); WBC 5.3 k/uL (3.8-10.6)
[2019-02-02] MEDS: VENLAFAXINE HCL ER 75 MG CAP PO SCH (07:57)
[2019-02-02] MEDS: INSULIN DETEMIR (LEVEMIR) 100 UNIT/ML SYR SQ SCH ×2 (07:58→21:16)
[2019-02-02] MEDS: INSULIN ASPART (NovoLOG) 100 UNIT/ML VIAL SQ SCH ×4 (07:58→21:16)
[2019-02-02] MEDS: SODIUM CHLORIDE 0.9% 1,000 ML IV SCH ×2 (07:59→17:21)
[2019-02-02 08:16] LABS: ALT 20 U/L (9-52); AST 23 U/L (14-36); African American GFR (CKD) >90 (>60 ml/min/1.73 sqM); Albumin 3.1 g/dL (3.5-5.0); Alkaline Phosphatase 68 U/L (38-126); Anion Gap 7 mmol/L; Blood Urea Nitrogen 19 mg/dL (7-17); Calcium 8.7 mg/dL (8.4-10.2); Carbon Dioxide 24 mmol/L (22-30); Chloride 107 mmol/L (98-107); Glucose 166 mg/dL (74-99); Sodium 138 mmol/L (137-145); Total Bilirubin 0.4 mg/dL (0.2-1.3); Total Protein 6.4 g/dL (6.3-8.2)
[2019-02-02 08:57] LABS: Anisocytosis (M) Present
[2019-02-02 08:58] LABS: Platelet Count 70 k/uL (150-450)
[2019-02-02] MEDS: metroNIDAZOLE-NS PMX 500 MG in SALINE 1 100ML.BAG IVPB SCH ×3 (09:03→23:08)
--- NOTE | 2019-02-02 09:14 | P.PN ---
Subjective Progress Note Date: 02/02/19 Ms. Baker is a 63-year-old patient who presented to the ER with complaints of open wound to right foot. Patient has a past medical history of diabetic ulcers in which she has followed in the wound care clinic. Patient reports that she was discharged possibly 2 weeks ago from the wound care clinic. Patient reports on 01/25/2019 she noticed an open ulcer to her right foot with large blister to bottom of right heel. Patient was started initially on Keflex and then Bactrim was added per ER physician. Patient presented today due to increased pain and drainage from the site. Additional medical history includes diabetes mellitus, osteomyelitis, cervical cancer, COPD, hyperlipidemia, liver disorder, musculoskeletal disorder, neurological disorder, osteoporosis and hypothyroidism. Patient also has a history of anxiety bipolar depression. Foot x-ray completed showing significant soft tissue swelling is progressed compared to old exam no fracture seen and no focal bone destruction. Patient reports she did have a fever couple days ago. She denies any other significant illness. Patient denies chest pain or shortness breath. Patient denies nausea vomiting or diarrhea. Patient denies any urinary burning or frequency. On 02/01/2019 patient was seen and examined on the medical floor, she is alert and oriented 3 in no apparent distress, she is complaining of pain in her foot otherwise no complaints, there is no fever or chills no headache or dizziness no chest pain no shortness of breath no cough no nausea or vomiting no abdominal pain no diarrhea and no urinary symptoms. On 02/02/2019 patient was seen and examined on the medical floor she is complaining of pain in her foot otherwise she denies any complaints there is no fever or chills no headache or dizziness no chest pain or shortness of breath no cough no nausea or vomiting no abdominal pain no diarrhea no burning with u rination no frequency or urgency and no hematuria. Input from Dr. Nielsen reviewed, currently patient is maintained on 3 antibiotics IV vancomycin, Flagyl, and Rocephin. Objective - Vital Signs Vital signs: Vital Signs Temp 98.1 F 02/02/19 05:40 Pulse 82 02/02/19 05:40 Resp 20 02/02/19 05:40 BP 133/65 02/02/19 05:40 Pulse Ox 96 02/02/19 05:40 Intake & Output 11/02/19 11/03/19 11/03/19 19:59 06:59 18:59 Other: Voiding Method # Voids - Exam In general patient is alert and oriented 3 in no apparent distress Head normocephalic and atraumatic Neck supple no JVD no goiter Lungs clear to auscultation bilaterally no wheezing or crackles Heart regular rate and rhythm S1-S2, no rub or gallop Abdomen is soft nontender nondistended positive bowel sounds no hepatosplenomegaly Extremities no edema. Large closed blister noted to right heel with quarter size open wound under blister site Neuro no gross focal neurological deficit - Labs CBC & Chem 7: 02/02/19 07:24 02/02/19 07:24 Labs: Abnormal Lab Results - Last 24 Hours (Table) 02/01/19 02/01/19 02/01/19 Range/Units 12:17 17:02 17:19 RDW (11.5-15.5) % Plt Count (150-450) k/uL Lymphocytes # (1.0-4.8) k/uL BUN (7-17) mg/dL Glucose (74-99) mg/dL POC Glucose (mg/dL) 151 H 60 L 175 H (75-99) mg/dL Albumin (3.5-5.0) g/dL 02/01/19 02/01/19 02/02/19 Range/Units 18:59 20:23 07:11 RDW (11.5-15.5) % Plt Count (150-450) k/uL Lymphocytes # (1.0-4.8) k/uL BUN (7-17) mg/dL Glucose (74-99) mg/dL POC Glucose (mg/dL) 130 H 146 H 170 H (75-99) mg/dL Albumin (3.5-5.0) g/dL 02/02/19 02/02/19 Range/Units 07:24 07:24 RDW 15.6 H (11.5-15.5) % Plt Count 70 L (150-450) k/uL Lymphocytes # 0.9 L (1.0-4.8) k/uL BUN 19 H (7-17) mg/dL Glucose 166 H (74-99) mg/dL POC Glucose (mg/dL) (75-99) mg/dL Albumin 3.1 L (3.5-5.0) g/dL Microbiology - Last 24 Hours (Table) 01/30/19 18:27 Blood Culture - Preliminary Blood No Growth after 48 hours 01/31/19 05:14 Gram Stain - Preliminary Foot - Right Wound Culture - Preliminary Presumptive MRSA Gram Neg Bacilli Assessment and Plan Plan: 1. Nonhealing Diabetic foot ulcer to right foot. Patient started on vancomycin, Flagyl and Rocephin. Infectious disease following. Wound and blood cultures ordered 2. Diabetes mellitus type 2. Home insulin has been resumed. Hemoglobin A1c 11 patient has been refusing her full dose of insulin and asking nurses to give her less then her full dose because she was afraid of hypoglycemia, her glucose level is markedly elevated, she was counseled regarding diet and taking insulin regular 3. History of right heel ulcer with osteomyelitis. Has followed with wound care clinic 4. History of essential hypertension 5. History of hyperlipidemia. Patient maintained on statin 6. History of hypothyroidism. Synthroid resumed 7. History of depression. Home meds resumed 8. Chronic thrombocytopenia. Patient has been seen by Dr. bowling in the past. From a cytopenia related secondary to multiple comorbidities including liver disease thyromegaly worsening with active infection 9. History of liver cirrhosis 10. History of bipolar depression with resumed 11. Morbid obesity DVT prophylaxis SCDs due to chronic thrombocytopenia. GI prophylaxis Pepcid. Continue current management awaiting further input from infectious disease
--- NOTE | 2019-02-02 11:36 | NM ---
EXAMINATION TYPE: NM bone 3 phase DATE OF EXAM: 02/02/2019 COMPARISON: Previous study dated 03/28/2017. HISTORY: Heel pain. Triple phase bone scintigraphy was performed following the injection of 25.3 mCi Tc 99m MDP. Immedia te images and 3 hours post injection images acquired. FINDINGS: There is a slight increased flow to the right leg. Pool imaging shows some superficial uptake in the right heel and in the region of the left fifth and TP joint. Delayed static images show some increase d uptake in the forefoot bilaterally as well as in the left fifth MTP joint. There is minimal activit y about the calcaneus. IMPRESSION: 1. ACTIVITY IN THE FOREFEET AND IN THE LEFT FIFTH MTP JOINT SUGGEST DEGENERATIVE CHANGE. 2. ACTIVITY IN THE CALCANEUS HAS DECREASED SIGNIFICANTLY FROM PREVIOUS BUT PERSISTS SUGGESTING ONGOIN G OSTEOMYELITIS.
[2019-02-02] MEDS: VANCOMYCIN 2,000 MG in SODIUM CHLORIDE 0.9% 500 ML 500 ML IVPB SCH ×2 (11:39→23:08)
[2019-02-02] MEDS: TRIAMTERENE-HCTZ 37.5-25MG 1 EACH TAB PO SCH ×2 (11:39→16:15)
[2019-02-02 11:57] LABS: Glucose,Whole Blood 127 mg/dL (75-99)
[2019-02-02] MEDS: NYSTATIN 100,000 UNIT/GM POWD 15 GM TOPICAL SCH ×2 (16:15→21:18)
[2019-02-02 17:13] LABS: Glucose,Whole Blood 51 mg/dL (75-99)
[2019-02-02 17:13] LABS: Glucose,Whole Blood 54 mg/dL (75-99)
[2019-02-02 17:22] LABS: Glucose,Whole Blood 65 mg/dL (75-99)
[2019-02-02 17:46] LABS: Glucose,Whole Blood 75 mg/dL (75-99)
[2019-02-02 20:40] LABS: Glucose,Whole Blood 216 mg/dL (75-99)
[2019-02-02] MEDS: ARIPiprazole 5 MG TAB PO SCH (21:17)
[2019-02-02] MEDS: ATORVASTATIN 20 MG TAB PO SCH (21:17)
[2019-02-02] MEDS: traZODone HCL 100 MG TAB PO SCH (21:18)
[2019-02-03 03:00] VITALS: RESP 16
[2019-02-03] MEDS: SODIUM CHLORIDE 0.9% 1,000 ML IV SCH ×3 (03:59→22:07)
[2019-02-03] MEDS: LEVOTHYROXINE 100 MCG TAB PO SCH (05:41)
[2019-02-03 07:15] LABS: Glucose,Whole Blood 193 mg/dL (75-99)
[2019-02-03] MEDS: LORATADINE 10 MG TAB PO SCH (07:39)
[2019-02-03] MEDS: FAMOTIDINE 20 MG TAB PO SCH (07:39)
[2019-02-03] MEDS: MULTIVITAMINS, THERA 1 EACH TAB PO SCH (07:39)
[2019-02-03] MEDS: ASPIRIN 81 MG PO SCH (07:40)
[2019-02-03] MEDS: INSULIN ASPART (NovoLOG) 100 UNIT/ML VIAL SQ SCH ×4 (07:40→22:02)
[2019-02-03] MEDS: CYCLOBENZAPRINE 10 MG TAB PO SCH ×2 (07:40→22:03)
[2019-02-03] MEDS: PREGABALIN 75 MG CAP PO SCH ×2 (07:40→22:05)
[2019-02-03] MEDS: INSULIN DETEMIR (LEVEMIR) 100 UNIT/ML SYR SQ SCH ×2 (07:40→22:02)
[2019-02-03] MEDS: VENLAFAXINE HCL ER 75 MG CAP PO SCH (07:42)
[2019-02-03] MEDS: metFORMIN 850 MG TAB PO SCH ×2 (07:42→22:03)
[2019-02-03] MEDS: NYSTATIN 100,000 UNIT/GM POWD 15 GM TOPICAL SCH ×2 (07:42→22:03)
[2019-02-03 09:18] LABS: ALT 22 U/L (9-52); AST 27 U/L (14-36); African American GFR (CKD) >90 (>60 ml/min/1.73 sqM); Albumin 3.1 g/dL (3.5-5.0); Alkaline Phosphatase 66 U/L (38-126); Anion Gap 10 mmol/L; Blood Urea Nitrogen 18 mg/dL (7-17); Carbon Dioxide 23 mmol/L (22-30); Chloride 108 mmol/L (98-107); Glucose 217 mg/dL (74-99); Potassium 4.3 mmol/L (3.5-5.1); Sodium 141 mmol/L (137-145); Total Bilirubin 0.3 mg/dL (0.2-1.3); Total Protein 6.4 g/dL (6.3-8.2)
[2019-02-03 09:26] LABS: Basophils % (A) 1 %; Eosinophils # (A) 0.2 k/uL (0-0.7); Eosinophils % (A) 4 %; HCT 38.9 % (34.0-46.0); HGB 12.5 gm/dL (11.4-16.0); Hypochromasia Slight; Lymphocytes % (A) 18 %; MCH 27.9 pg (25.0-35.0); MCV 87.3 fL (80.0-100.0); Mean Platelet Volume 7.9; Monocytes # (A) 0.3 k/uL (0-1.0); Monocytes % (A) 5 %; Neutrophils # (A) 3.9 k/uL (1.3-7.7); Neutrophils % (A) 71 %; Poikilocytosis Slight; RBC 4.46 m/uL (3.80-5.40); RDW 15.5 % (11.5-15.5); WBC 5.5 k/uL (3.8-10.6)
[2019-02-03 09:38] LABS: Platelet Count 72 k/uL (150-450)
[2019-02-03] MEDS: metroNIDAZOLE-NS PMX 500 MG in SALINE 1 100ML.BAG IVPB SCH (09:52)
[2019-02-03] MEDS: TRIAMTERENE-HCTZ 37.5-25MG 1 EACH TAB PO SCH ×2 (09:52→14:03)
--- NOTE | 2019-02-03 11:13 | P.PN ---
Subjective Progress Note Date: 02/03/19 Ms. Baker is a 63-year-old patient who presented to the ER with complaints of open wound to right foot. Patient has a past medical history of diabetic ulcers in which she has followed in the wound care clinic. Patient reports that she was discharged possibly 2 weeks ago from the wound care clinic. Patient reports on 01/25/2019 she noticed an open ulcer to her right foot with large blister to bottom of right heel. Patient was started initially on Keflex and then Bactrim was added per ER physician. Patient presented today due to increased pain and drainage from the site. Additional medical history includes diabetes mellitus, osteomyelitis, cervical cancer, COPD, hyperlipidemia, liver disorder, musculoskeletal disorder, neurological disorder, osteoporosis and hypothyroidism. Patient also has a history of anxiety bipolar depression. Foot x-ray completed showing significant soft tissue swelling is progressed compared to old exam no fracture seen and no focal bone destruction. Patient reports she did have a fever couple days ago. She denies any other significant illness. Patient denies chest pain or shortness breath. Patient denies nausea vomiting or diarrhea. Patient denies any urinary burning or frequency. On 02/01/2019 patient was seen and examined on the medical floor, she is alert and oriented 3 in no apparent distress, she is complaining of pain in her foot otherwise no complaints, there is no fever or chills no headache or dizziness no chest pain no shortness of breath no cough no nausea or vomiting no abdominal pain no diarrhea and no urinary symptoms. On 02/02/2019 patient was seen and examined on the medical floor she is complaining of pain in her foot otherwise she denies any complaints there is no fever or chills no headache or dizziness no chest pain or shortness of breath no cough no nausea or vomiting no abdominal pain no diarrhea no burning with u rination no frequency or urgency and no hematuria. Input from Dr. Nielsen reviewed, currently patient is maintained on 3 antibiotics IV vancomycin, Flagyl, and Rocephin. On 07/20/2018 patient is alert and oriented 3. Patient remains on vancomycin and Flagyl and Rocephin at this time. Bone scan ordered per infectious disease. Patient has remained afebrile. Patient denies chest pain or shortness of breath. Patient denies nausea vomiting or diarrhea. Patient denies any urinary burning or frequency. Objective - Vital Signs Vital signs: Vital Signs Temp 96.8 F L 02/03/19 05:48 Pulse 77 02/03/19 05:48 Resp 16 02/03/19 05:48 BP 137/65 02/03/19 05:48 Pulse Ox 96 02/03/19 05:48 Intake & Output 02/02/19 02/03/19 02/03/19 18:59 06:59 18:59 Intake Total 2600 Balance 2600 Intake: Intake, IV Titration 1800 Amount Sodium Chloride 0.9% 1, 800 000 ml @ 100 mls/hr IV . Q10H JACKLYN Rx#:[id number] Vancomycin 2,000 mg In 500 Sodium Chloride 0.9% 500 ml 500 ml @ 167 mls/hr IVPB Q16H JACKLYN Rx#: [id number]-NS PMX 500 500 mg In Saline 1 100ml.bag @ 100 mls/hr IVPB Q8HR JACKLYN Rx#:[id number] Oral 800 Other: Voiding Method Bedside Commode # Voids 2 - Exam In general patient is alert and oriented 3 in no apparent distress Head normocephalic and atraumatic Neck supple no JVD no goiter Lungs clear to auscultation bilaterally no wheezing or crackles Heart regular rate and rhythm S1-S2, no rub or gallop Abdomen is soft nontender nondistended positive bowel sounds no hepatosplenomegaly Extremities no edema. Large closed blister noted to right heel with quarter size open wound under blister site Neuro no gross focal neurological deficit - Labs CBC & Chem 7: 02/03/19 08:13 02/03/19 08:13 Labs: Abnormal Lab Results - Last 24 Hours (Table) 02/02/19 02/02/19 02/02/19 Range/Units 11:56 16:37 17:00 Plt Count (150-450) k/uL Chloride (98-107) mmol/L BUN (7-17) mg/dL Glucose (74-99) mg/dL POC Glucose (mg/dL) 127 H 51 L 54 L (75-99) mg/dL Albumin (3.5-5.0) g/dL 02/02/19 02/02/19 02/03/19 Range/Units 17:20 20:38 07:14 Plt Count (150-450) k/uL Chloride (98-107) mmol/L BUN (7-17) mg/dL Glucose (74-99) mg/dL POC Glucose (mg/dL) 65 L 216 H 193 H (75-99) mg/dL Albumin (3.5-5.0) g/dL 02/03/19 02/03/19 Range/Units 08:13 08:13 Plt Count 72 L (150-450) k/uL Chloride 108 H (98-107) mmol/L BUN 18 H (7-17) mg/dL Glucose 217 H (74-99) mg/dL POC Glucose (mg/dL) (75-99) mg/dL Albumin 3.1 L (3.5-5.0) g/dL Microbiology - Last 24 Hours (Table) 01/31/19 05:14 Gram Stain - Final Foot - Right Wound Culture - Final Methicillin resist S. aureus Enterobacter cloacae 01/30/19 18:27 Blood Culture - Preliminary Blood No Growth after 72 hours Assessment and Plan Assessment: 1. Nonhealing Diabetic foot ulcer to right foot. Patient started on vancomycin, Flagyl and Rocephin. Infectious disease following. Wound and blood cultures ordered. Nuclear bone scan completed showing activity in the forefeet and in the left fifth MTP joint to just degenerative change. Activity in the Wound has decreased significantly from previously but persists suggesting ongoing osteomyelitis. 2. Diabetes mellitus type 2. Home insulin has been resumed. Hemoglobin A1c 11 patient has been refusing her full dose of insulin and asking nurses to give her less then her full dose because she was afraid of hypoglycemia, her glucose level is markedly elevated, she was counseled regarding diet and taking insulin regular 3. History of right heel ulcer with osteomyelitis. Has followed with wound care clinic 4. History of essential hypertension 5. History of hyperlipidemia. Patient maintained on statin 6. History of hypothyroidism. Synthroid resumed 7. History of depression. Home meds resumed 8. Chronic thrombocytopenia. Patient has been seen by Dr. bowling in the past. From a cytopenia related secondary to multiple comorbidities including liver disease thyromegaly worsening with active infection 9. History of liver cirrhosis 10. History of bipolar depression with resumed 11. Morbid obesity DVT prophylaxis SCDs due to chronic thrombocytopenia. GI prophylaxis Pepcid Patient unable to perform ADLs without wheelchair due to physical disabilities including chronic osteomyelitis. Prescription for wheelchair given I performed an examination of the patient and discussed their management with the Nurse Practitioner. I have reviewed the Nurse Practitioner's notes and agree with the documented findings and plan of care
[2019-02-03] MEDS: HYDROcodone/APAP 10-325MG 1 EACH TAB PO PRN (11:26)
[2019-02-03 12:08] LABS: Glucose,Whole Blood 226 mg/dL (75-99)
[2019-02-03 17:08] LABS: Glucose,Whole Blood 191 mg/dL (75-99)
[2019-02-03] MEDS: metroNIDAZOLE 500 MG TAB PO SCH (17:13)
[2019-02-03] MEDS: VANCOMYCIN 2,000 MG in SODIUM CHLORIDE 0.9% 500 ML 500 ML IVPB SCH (17:18)
--- NOTE | 2019-02-03 21:01 | P.PN ---
Subjective Progress Note Date: 02/03/19 63 female with multiple medical troubles with includes diabetes mellitus type 2 poorly controlled, superobesity the tach she had some improvement over the last year, and difficulties with chronic pressure ulcerations to her heels. She's had extensive workup in the past has had ongoing care at the wound healing Center. She was followed here and had total contact cast supplied and had complete healing of the right heel diabetic ulceration. The patient relates within days of being discharged from the wound center going back into her shoe full-time that she noticed some blistering and deformity heel and now it is considerably worse it's open draining there is some odor she started to feel poorly her blood sugars increased because she presented to Hospital. She always has a very complex psychosocial situation, this year her son his daughter and the daughter's mother were longer able to live with her which she found very discouraging because she is very connected to the granddaughter. Apparently because of drug use issues she was removed from the home. At this time she appears to be living just with 2 of her sons. Apparently she has found a new place to live however she's having great difficulties orchestrating the move which is complicated issues in the hospital. With her severe peripheral neuropathy she has no pain to the ulcer site. She does not believe she's had fevers chills or rigors but just does not feel well. 02/01/2019 today the patient is feeling considerably better. Her fevers and chills have resolved. She is not having discomfort. She is able to eat and her blood sugars have improved. 02/03/2019. Ulceration is improving with some local care. Bone scan has been completed. Objective - Vital Signs Vital signs: Vital Signs Temp 98.0 F 02/03/19 13:29 Pulse 75 02/03/19 13:29 Resp 16 02/03/19 13:29 BP 120/61 02/03/19 13:29 Pulse Ox 96 02/03/19 13:29 Intake & Output 02/03/19 02/03/19 02/04/19 06:59 18:59 06:59 Intake Total 750 Balance 750 Intake: Intake, IV Titration 750 Amount Sodium Chloride 0.9% 1, 600 000 ml @ 100 mls/hr IV . Q10H [facility] Rx#:[id number] cefTRIAXone 1 gm In 50 Sodium Chloride 0.9% 50 ml @ 100 mls/hr IVPB Q24HR [facility] Rx#:[id number] metroNIDAZOLE-NS PMX 500 100 mg In Saline 1 100ml.bag @ 100 mls/hr IVPB Q8HR [facility] Rx#:[id number] Other: Voiding Method Bedside Commode # Voids 2 - Exam Pleasant but anxious superobese woman she is not in distress HEENT: Anicteric conjunctiva are pink and moist nasal mucosa grossly intact without significant lesions, there is no thrush. Neck: The neck is supple without significant lymphadenopathy or thyromegaly. Lungs: There is symmetrical air entry, expiratory wheezes are scattered without jovi bronchial sounds all dullness or egophony Heart: Regular rate and rhythm with an audible S1-S2, soft S4. There is no significant murmur click or rub, PMI was nondisplaced. Abdomen: Obese Positive bowel sounds soft and nontender without palpable masses or organomegaly. There was no guarding or rebound. Extremities: The upper extremities have excellent pulses they are symmetric, no significant petechiae or telangiectasia. No splinter hemorrhages were noted. The lower extremities evidence of some chronic edema. Left foot without acute abnormality. The right heel shows evidence the recent injury with a large blister. There is some odor in the surrounding erythema has improved today as has drainage Neuro: Awake alert oriented to person place and time. There are no acute new gross focal sensory motor deficits. Patient has dense peripheral neuropathy with no sensation ankle distally bilaterally - Labs CBC & Chem 7: 02/03/19 08:13 02/03/19 08:13 Labs: Abnormal Lab Results - Last 24 Hours (Table) 02/03/19 02/03/19 02/03/19 Range/Units 07:14 08:13 08:13 Plt Count 72 L (150-450) k/uL Chloride 108 H (98-107) mmol/L BUN 18 H (7-17) mg/dL Glucose 217 H (74-99) mg/dL POC Glucose (mg/dL) 193 H (75-99) mg/dL Albumin 3.1 L (3.5-5.0) g/dL 02/03/19 02/03/19 Range/Units 12:05 17:06 Plt Count (150-450) k/uL Chloride (98-107) mmol/L BUN (7-17) mg/dL Glucose (74-99) mg/dL POC Glucose (mg/dL) 226 H 191 H (75-99) mg/dL Albumin (3.5-5.0) g/dL Microbiology - Last 24 Hours (Table) 01/30/19 18:27 Blood Culture - Preliminary Blood No Growth after 96 hours 01/31/19 05:14 Gram Stain - Final Foot - Right Wound Culture - Final Methicillin resist S. aureus Enterobacter cloacae Laboratory Results WBC 5.5 k/uL (3.8-10.6) 02/03/19 08:13 RBC 4.46 m/uL (3.80-5.40) 02/03/19 08:13 Hgb 12.5 gm/dL (11.4-16.0) 02/03/19 08:13 Hct 38.9 % (34.0-46.0) 02/03/19 08:13 MCV 87.3 fL (80.0-100.0) 02/03/19 08:13 MCH 27.9 pg (25.0-35.0) 02/03/19 08:13 MCHC 32.0 g/dL (31.0-37.0) 02/03/19 08:13 RDW 15.5 % (11.5-15.5) 02/03/19 08:13 Plt Count 72 k/uL (150-450) L 02/03/19 08:13 Neutrophils % 71 % 02/03/19 08:13 Lymphocytes % 18 % 02/03/19 08:13 Monocytes % 5 % 02/03/19 08:13 Eosinophils % 4 % 02/03/19 08:13 Basophils % 1 % 02/03/19 08:13 Neutrophils # 3.9 k/uL (1.3-7.7) 02/03/19 08:13 Lymphocytes # 1.0 k/uL (1.0-4.8) 02/03/19 08:13 Monocytes # 0.3 k/uL (0-1.0) 02/03/19 08:13 Eosinophils # 0.2 k/uL (0-0.7) 02/03/19 08:13 Basophils # 0.0 k/uL (0-0.2) 02/03/19 08:13 Manual Slide Review Performed 02/02/19 07:24 Hypochromasia Slight 02/03/19 08:13 Poikilocytosis Slight 02/03/19 08:13 Anisocytosis (manual) Present 02/02/19 07:24 Sodium 141 mmol/L (137-145) 02/03/19 08:13 Potassium 4.3 mmol/L (3.5-5.1) 02/03/19 08:13 Chloride 108 mmol/L (98-107) H 02/03/19 08:13 Carbon Dioxide 23 mmol/L (22-30) 02/03/19 08:13 Anion Gap 10 mmol/L 02/03/19 08:13 BUN 18 mg/dL (7-17) H 02/03/19 08:13 Creatinine 0.66 mg/dL (0.52-1.04) 02/03/19 08:13 Est GFR (CKD-EPI)AfAm >90 (>60 ml/min/1.73 sqM) 02/03/19 08:13 Est GFR (CKD-EPI)NonAf >90 (>60 ml/min/1.73 sqM) 02/03/19 08:13 Glucose 217 mg/dL (74-99) H 02/03/19 08:13 POC Glucose (mg/dL) 191 mg/dL (75-99) H 02/03/19 17:06 POC Glu [employer]er Delisa Jackson 02/03/19 17:[address] Glu mg/dL 269 01/31/19 09:04 Hemoglobin A1c 11.0 % (4.0-6.0) H 01/31/19 09:04 Plasma Lactic Acid Marquise 1.6 mmol/L (0.7-2.0) 01/30/19 18:27 Calcium 9.0 mg/dL (8.4-10.2) 02/03/19 08:13 Total Bilirubin 0.3 mg/dL (0.2-1.3) 02/03/19 08:13 AST 27 U/L (14-36) 02/03/19 08:13 ALT 22 U/L (9-52) 02/03/19 08:13 Alkaline Phosphatase 66 U/L (38-126) 02/03/19 08:13 Total Creatine Kinase 33 U/L (30-135) 01/31/19 13:15 CK-MB (CK-2) 0.5 ng/mL (0.0-2.4) 01/31/19 13:15 CK-MB (CK-2) Rel Index 1.5 01/31/19 13:15 Troponin I <0.012 ng/mL (0.000-0.034) 01/31/19 13:15 Total Protein 6.4 g/dL (6.3-8.2) 02/03/19 08:13 Albumin 3.1 g/dL (3.5-5.0) L 02/03/19 08:13 Vancomycin Trough 17.2 ug/mL 02/02/19 07:24 Microbiology 01/30/19 18:27 Blood Blood Culture - Preliminary No Growth after 96 hours 01/31/19 05:14 Foot - Right Gram Stain - Final 01/31/19 05:14 Foot - Right Wound Culture - Final Methicillin resist S. aureus Enterobacter cloacae - Imaging and Cardiology Bone scan is evaluated. As her recent x-rays. The patient does have a history of prior osteomyelitis. The bone scan reveals evidence of significant improvement and the x-ray does not show evidence of any bony destruction. Assessment and Plan (1) Diabetic ulcer of right foot associated with diabetes mellitus due to underlying condition, with fat layer exposed Current Visit: No Status: Acute Code(s): E08.621 - DIABETES MELLITUS DUE TO UNDERLYING CONDITION W FOOT ULCER; L97.512 - NON-PRS CHRONIC ULCER OTH PRT RIGHT FOOT W FAT LAYER EXPOSED SNOMED Code(s): 744998534 (2) Morbid obesity with BMI of 50.0-59.9, adult Narrative/Plan: 63-year-old woman who has a history of diabetes mellitus type 2 poorly controlled, obesity and recurrent ulcerations to her right foot. She's been recently found wound healing center a total contact cast was being utilized, and allow complete healing of her ulceration. Shortly after coming out of the cast going into her shoe she again has are ulcerated now presents to Hospital. Cultures obtained. Antibiotic therapy with Rocephin is being utilized with a known history of her Klebsiella, Flagyl was also added with concerns to any anaerobic infection also occurring. Local wound care is with jimmy. She needs offloaded while she is in hospital. She'll need to follow back to the wound healing center after discharge he will need alternative footgear after discharge to allow more sustained healing of her ulcerations. While in Hospital improved glucose control, add a multivitamin and monitor cultures. 02/01/2019 the wound culture showed evidence of presumptive MRSA and gram- negative bacilli. Continue vancomycin therapy and Rocephin and metronidazole for now. Await final cultures to determine potential options for antibiotics at discharge. Bone scan is requested to evaluate the possibility of underlying osteomyelitis that he'll. She'll follow back up in the wound healing Center and will need further maneuvers for offloading such as a total contact cast it may need to be in quileute walker or similar for a more long-term fix. 02/03/2018 MRSA and Enterobacter isolated. Both are susceptible to trimethoprim sulfamethoxazole. The patient is improving and will need follow-up in the wound healing Center. This will allow some further treatment to the recurrent pressure ulceration to her heel. The bone scan is evaluated as is the most recent x-ray. It does not appear that the patient has active osteomyelitis it would not require long-term IV antibiotic therapy. She was transitioned to oral trimethoprim sulfamethoxazole and when medically stable to discharge home with follow-up with the wound healing Center. Current Visit: No Status: Chronic Code(s): E66.01 - MORBID (SEVERE) OBESITY DUE TO EXCESS CALORIES; Z68.43 - BODY MASS INDEX (BMI) 50.0-59.9, ADULT SNOMED Code(s): 615144530
[2019-02-03 21:20] LABS: Glucose,Whole Blood 316 mg/dL (75-99)
[2019-02-03] MEDS: traZODone HCL 100 MG TAB PO SCH (22:03)
[2019-02-03] MEDS: ATORVASTATIN 20 MG TAB PO SCH (22:03)
[2019-02-03] MEDS: ARIPiprazole 5 MG TAB PO SCH (22:03)
[2019-02-04] MEDS: metroNIDAZOLE 500 MG TAB PO SCH ×2 (02:15→11:46)
[2019-02-04] MEDS: LEVOTHYROXINE 100 MCG TAB PO SCH (05:06)
[2019-02-04 07:19] LABS: Glucose,Whole Blood 221 mg/dL (75-99)
[2019-02-04] MEDS: INSULIN ASPART (NovoLOG) 100 UNIT/ML VIAL SQ SCH ×2 (07:58→13:44)
[2019-02-04] MEDS: LORATADINE 10 MG TAB PO SCH (07:58)
[2019-02-04] MEDS: FAMOTIDINE 20 MG TAB PO SCH (07:58)
[2019-02-04] MEDS: INSULIN DETEMIR (LEVEMIR) 100 UNIT/ML SYR SQ SCH (07:58)
[2019-02-04] MEDS: MULTIVITAMINS, THERA 1 EACH TAB PO SCH (07:58)
[2019-02-04] MEDS: CYCLOBENZAPRINE 10 MG TAB PO SCH (07:58)
[2019-02-04] MEDS: ASPIRIN 81 MG PO SCH (07:58)
[2019-02-04] MEDS: PREGABALIN 75 MG CAP PO SCH (07:58)
[2019-02-04] MEDS: VENLAFAXINE HCL ER 75 MG CAP PO SCH (07:59)
[2019-02-04] MEDS: VANCOMYCIN 2,000 MG in SODIUM CHLORIDE 0.9% 500 ML 500 ML IVPB SCH (08:00)
[2019-02-04] MEDS: metFORMIN 850 MG TAB PO SCH (08:00)
[2019-02-04] MEDS: HYDROcodone/APAP 10-325MG 1 EACH TAB PO PRN ×2 (08:07→15:11)
[2019-02-04] MEDS: TRIAMTERENE-HCTZ 37.5-25MG 1 EACH TAB PO SCH ×2 (11:35→15:12)
[2019-02-04] MEDS: NYSTATIN 100,000 UNIT/GM POWD 15 GM TOPICAL SCH (11:48)
[2019-02-04] MEDS: SODIUM CHLORIDE 0.9% 1,000 ML IV SCH (11:48)
[2019-02-04 12:15] LABS: Glucose,Whole Blood 177 mg/dL (75-99)
[2019-02-04 12:39] VITALS: BP 128/76; PULSE 80; TEMP 98.1
--- NOTE | 2019-02-04 14:50 | P.DS ---
Providers Date of admission: 01/30/19 20:03 Expected date of discharge: 02/04/19 Attending physician: Lilibeth Seymour Consults: 01/30/19 19:11 Consult Physician Stat Consulting Provider: Chris Nielsen Consult Reason/Comments: diabetic foot ulcer Do you want consulting provider notified?: Yes, Notify in am Primary care physician: Lilibeth Seymour [facility] Course: Discharge diagnosis 1. Nonhealing Diabetic foot ulcer to right foot. Patient started on vancomycin, Flagyl and Rocephin. Infectious disease following. Wound and blood cultures ordered. Nuclear bone scan completed showing activity in the forefeet and in the left fifth MTP joint to just degenerative change. Activity in the Wound has decreased significantly from previously but persists suggesting ongoing osteomyelitis. Discussed case with Dr. Nielsen. Infectious disease patient will be discharged on Bactrim and to follow-up outpatient wound care clinic 2. Diabetes mellitus type 2. Home insulin has been resumed. Hemoglobin A1c 11 patient has been refusing her full dose of insulin and asking nurses to give her less then her full dose because she was afraid of hypoglycemia, her glucose level is markedly elevated, she was counseled regarding diet and taking insulin regular patient DC'd back on home medications. 3. History of right heel ulcer with osteomyelitis. Has followed with wound care clinic 4. History of essential hypertension 5. History of hyperlipidemia. Patient maintained on statin 6. History of hypothyroidism. Synthroid resumed 7. History of depression. Home meds resumed 8. Chronic thrombocytopenia. Patient has been seen by Dr. bowling in the past. From a cytopenia related secondary to multiple comorbidities including liver disease thyromegaly worsening with active infection 9. History of liver cirrhosis 10. History of bipolar depression with resumed 11. Morbid obesity Hospital course Ms. Baker is a 63-year-old patient who presented to the ER with complaints of open wound to right foot. Patient has a past medical history of diabetic ulcers in which she has followed in the wound care clinic. Patient reports that she was discharged possibly 2 weeks ago from the wound care clinic. Patient reports on 01/25/2019 she noticed an open ulcer to her right foot with large blister to bottom of right heel. Patient was started initially on Keflex and then Bactrim was added per ER physician. Patient presented today due to increased pain and drainage from the site. Additional medical history includes diabetes mellitus, osteomyelitis, cervical cancer, COPD, hyperlipidemia, liver disorder, musculoskeletal disorder, neurological disorder, osteoporosis and hypothyroidism. Patient also has a history of anxiety bipolar depression. Foot x-ray completed showing significant soft tissue swelling is progressed compared to old exam no fracture seen and no focal bone destruction. Patient reports she did have a fever couple days ago. She denies any other significant illness. Patient denies chest pain or shortness breath. Patient denies nausea vomiting or diarrhea. Patient denies any urinary burning or frequency. On 02/01/2019 patient was seen and examined on the medical floor, she is alert and oriented 3 in no apparent distress, she is complaining of pain in her foot otherwise no complaints, there is no fever or chills no headache or dizziness no chest pain no shortness of breath no cough no nausea or vomiting no abdominal pain no diarrhea and no urinary symptoms. On 02/02/2019 patient was seen and examined on the medical floor she is complaining of pain in her foot otherwise she denies any complaints there is no fever or chills no headache or dizziness no chest pain or shortness of breath no cough no nausea or vomiting no abdominal pain no diarrhea no burning with urination no frequency or urgency and no hematuria. Input from Dr. Nielsen reviewed, currently patient is maintained on 3 antibiotics IV vancomycin, Flagyl, and Rocephin. On 07/20/2018 patient is alert and oriented 3. Patient remains on vancomycin and Flagyl and Rocephin at this time. Bone scan ordered per infectious disease. Patient has remained afebrile. Patient denies chest pain or shortness of breath. Patient denies nausea vomiting or diarrhea. Patient denies any urinary burning or frequency. On 02/04/2019 patient is alert and oriented 3. Discussed case with Dr. Nielsen for infectious disease, she has been cleared for discharge. Patient will be DC'd on Bactrim DS twice a day for 15 days. Patient will be DC'd on home insulin dosage. She denies chest pain or shortness of breath. Patient denies nausea vomiting or diarrhea. Patient denies any urinary burning or frequency I performed an examination of the patient and discussed their management with the Nurse Practitioner. I have reviewed the Nurse Practitioner's notes and agree with the documented findings and plan of care Patient Condition at Discharge: Stable Plan - Discharge Summary Discharge Rx Participant: No New Discharge Prescriptions: New Sulfamethox-Tmp 800-160Mg [Bactrim DS 800-160 mg] 1 tab PO Q12HR #30 tab Continue metFORMIN HCL [Glucophage] 850 mg PO BID Cyclobenzaprine [Flexeril] 10 mg PO BID tab Pregabalin [Lyrica] 75 mg PO BID cap Triamterene/Hydrochlorothiazid [Maxzide 37.5-25] 1 tab PO BID@1000,1400 Aspirin EC [Ecotrin Low Dose] 81 mg PO DAILY Insulin Glargine,Hum.rec.anlog [Basaglar Kwikpen U-100] 100 unit SQ BID Simvastatin [Zocor] 40 mg PO HS Cetirizine HCl [Zyrtec] 10 mg PO DAILY Levothyroxine Sodium [Synthroid] 100 mcg PO DAILY@0630 tab HYDROcodone/APAP 10-325MG [[place] 10-325] 1 tab PO Q8H PRN PRN Reason: Pain Nystatin 100,000 Unit/gm Powd [Mycostatin Powder] 1 applic TOPICAL BID traZODone HCL [Desyrel] 100 mg PO HS Venlafaxine HCl [Effexor XR] 225 mg PO DAILY ARIPiprazole [Abilify] 5 mg PO HS Insulin Lispro [Admelog] 35 unit SQ AC-TID Discontinued Cephalexin [Keflex] 500 mg PO Q6HR 10 Days cap Sulfamethox-Tmp 800-160Mg [Bactrim Ds] 1 tab PO Q12HR Discharge Medication List metFORMIN HCL [Glucophage] 850 mg PO BID 02/18/14 [History] Cyclobenzaprine [Flexeril] 10 mg PO BID tab 02/16/18 [Rx] Pregabalin [Lyrica] 75 mg PO BID cap 02/16/18 [Rx] Aspirin EC [Ecotrin Low Dose] 81 mg PO DAILY 04/08/18 [History] Cetirizine HCl [Zyrtec] 10 mg PO DAILY 04/08/18 [History] Insulin Glargine,Hum.rec.anlog [Basaglar Kwikpen U-100] 100 unit SQ BID 04/08/18 [History] Simvastatin [Zocor] 40 mg PO HS 04/08/18 [History] Triamterene/Hydrochlorothiazid [Maxzide 37.5-25] 1 tab PO BID@1000,1400 04/08/18 [History] Levothyroxine Sodium [Synthroid] 100 mcg PO DAILY@0630 tab 04/11/18 [Rx] HYDROcodone/APAP 10-325MG [[place] 10-325] 1 tab PO Q8H PRN 06/05/18 [History] Nystatin 100,000 Unit/gm Powd [Mycostatin Powder] 1 applic TOPICAL BID 07/04/18 [History] ARIPiprazole [Abilify] 5 mg PO HS 10/12/18 [History] Venlafaxine HCl [Effexor XR] 225 mg PO DAILY 10/12/18 [History] traZODone HCL [Desyrel] 100 mg PO HS 10/12/18 [History] Insulin Lispro [Admelog] 35 unit SQ AC-TID 11/25/18 [History] Sulfamethox-Tmp 800-160Mg [Bactrim DS 800-160 mg] 1 tab PO Q12HR #30 tab 02/04/19 [Rx] Follow up Appointment(s)/Referral(s): Wound Healing,Center [NON-STAFF] - 1 Week Lilibeth Seymour MD [Primary Care Provider] - 1-2 days Activity/Diet/Wound Care/Special Instructions: Activity as tolerated Diet carb consistent
[2019-02-04] MEDS ORDERED: VANCOMYCIN TROUGH DUE 1 EACH MISC MISCELLANE ONE (23:00)
--- NOTE | 2019-02-04 23:56 | P.PN ---
Subjective Progress Note Date: 02/04/19 63 female with multiple medical troubles with includes diabetes mellitus type 2 poorly controlled, superobesity the tach she had some improvement over the last year, and difficulties with chronic pressure ulcerations to her heels. She's had extensive workup in the past has had ongoing care at the wound healing Center. She was followed here and had total contact cast supplied and had complete healing of the right heel diabetic ulceration. The patient relates within days of being discharged from the wound center going back into her shoe full-time that she noticed some blistering and deformity heel and now it is considerably worse it's open draining there is some odor she started to feel poorly her blood sugars increased because she presented to Hospital. She always has a very complex psychosocial situation, this year her son his daughter and the daughter's mother were longer able to live with her which she found very discouraging because she is very connected to the granddaughter. Apparently because of drug use issues she was removed from the home. At this time she appears to be living just with 2 of her sons. Apparently she has found a new place to live however she's having great difficulties orchestrating the move which is complicated issues in the hospital. With her severe peripheral neuropathy she has no pain to the ulcer site. She does not believe she's had fevers chills or rigors but just does not feel well. 02/01/2019 today the patient is feeling considerably better. Her fevers and chills have resolved. She is not having discomfort. She is able to eat and her blood sugars have improved. 02/03/2019. Ulceration is improving with some local care. Bone scan has been completed. 02/04/2019 patient is improving. Drainage has improved. Doing well with the honey dressing. Understands importance of elevation. Objective - Vital Signs Vital signs: Vital Signs Temp 98.1 F 02/04/19 12:38 Pulse 80 02/04/19 12:38 Resp 16 02/04/19 12:38 BP 128/76 02/04/19 12:38 Pulse Ox 96 02/04/19 12:38 Intake & Output 02/04/19 02/04/19 02/05/19 06:59 18:59 06:59 Other: Voiding Method Bedside Commode # Voids 4 3 - Exam Pleasant but anxious superobese woman she is not in distress HEENT: Anicteric conjunctiva are pink and moist nasal mucosa grossly intact without significant lesions, there is no thrush. Neck: The neck is supple without significant lymphadenopathy or thyromegaly. Lungs: There is symmetrical air entry, expiratory wheezes are scattered without jovi bronchial sounds all dullness or egophony Heart: Regular rate and rhythm with an audible S1-S2, soft S4. There is no significant murmur click or rub, PMI was nondisplaced. Abdomen: Obese Positive bowel sounds soft and nontender without palpable masses or organomegaly. There was no guarding or rebound. Extremities: The upper extremities have excellent pulses they are symmetric, no significant petechiae or telangiectasia. No splinter hemorrhages were noted. The lower extremities evidence of some chronic edema. Left foot without acute abnormality. The right heel shows evidence the recent injury with a large blister. There is some odor in the surrounding erythema has improved today as has drainage Neuro: Awake alert oriented to person place and time. There are no acute new gross focal sensory motor deficits. Patient has dense peripheral neuropathy with no sensation ankle distally bilaterally - Labs CBC & Chem 7: 02/03/19 08:13 02/03/19 08:13 Labs: Abnormal Lab Results - Last 24 Hours (Table) 02/04/19 02/04/19 Range/Units 06:51 12:13 POC Glucose (mg/dL) 221 H 177 H (75-99) mg/dL Microbiology - Last 24 Hours (Table) 01/30/19 18:27 Blood Culture - Preliminary Blood No Growth after 120 hours Laboratory Results WBC 5.5 k/uL (3.8-10.6) 02/03/19 08:13 RBC 4.46 m/uL (3.80-5.40) 02/03/19 08:13 Hgb 12.5 gm/dL (11.4-16.0) 02/03/19 08:13 Hct 38.9 % (34.0-46.0) 02/03/19 08:13 MCV 87.3 fL (80.0-100.0) 02/03/19 08:13 MCH 27.9 pg (25.0-35.0) 02/03/19 08:13 MCHC 32.0 g/dL (31.0-37.0) 02/03/19 08:13 RDW 15.5 % (11.5-15.5) 02/03/19 08:13 Plt Count 72 k/uL (150-450) L 02/03/19 08:13 Neutrophils % 71 % 02/03/19 08:13 Lymphocytes % 18 % 02/03/19 08:13 Monocytes % 5 % 02/03/19 08:13 Eosinophils % 4 % 02/03/19 08:13 Basophils % 1 % 02/03/19 08:13 Neutrophils # 3.9 k/uL (1.3-7.7) 02/03/19 08:13 Lymphocytes # 1.0 k/uL (1.0-4.8) 02/03/19 08:13 Monocytes # 0.3 k/uL (0-1.0) 02/03/19 08:13 Eosinophils # 0.2 k/uL (0-0.7) 02/03/19 08:13 Basophils # 0.0 k/uL (0-0.2) 02/03/19 08:13 Manual Slide Review Performed 02/02/19 07:24 Hypochromasia Slight 02/03/19 08:13 Poikilocytosis Slight 02/03/19 08:13 Anisocytosis (manual) Present 02/02/19 07:24 Sodium 141 mmol/L (137-145) 02/03/19 08:13 Potassium 4.3 mmol/L (3.5-5.1) 02/03/19 08:13 Chloride 108 mmol/L (98-107) H 02/03/19 08:13 Carbon Dioxide 23 mmol/L (22-30) 02/03/19 08:13 Anion Gap 10 mmol/L 02/03/19 08:13 BUN 18 mg/dL (7-17) H 02/03/19 08:13 Creatinine 0.66 mg/dL (0.52-1.04) 02/03/19 08:13 Est GFR (CKD-EPI)AfAm >90 (>60 ml/min/1.73 sqM) 02/03/19 08:13 Est GFR (CKD-EPI)NonAf >90 (>60 ml/min/1.73 sqM) 02/03/19 08:13 Glucose 217 mg/dL (74-99) H 02/03/19 08:13 POC Glucose (mg/dL) 177 mg/dL (75-99) H 02/04/19 12:13 POC Glu Ball Warper Tender Delisa Jackson 02/04/19 12:[address] Glu mg/dL 269 01/31/19 09:04 Hemoglobin A1c 11.0 % (4.0-6.0) H 01/31/19 09:04 Plasma Lactic Acid Marquise 1.6 mmol/L (0.7-2.0) 01/30/19 18:27 Calcium 9.0 mg/dL (8.4-10.2) 02/03/19 08:13 Total Bilirubin 0.3 mg/dL (0.2-1.3) 02/03/19 08:13 AST 27 U/L (14-36) 02/03/19 08:13 ALT 22 U/L (9-52) 02/03/19 08:13 Alkaline Phosphatase 66 U/L (38-126) 02/03/19 08:13 Total Creatine Kinase 33 U/L (30-135) 01/31/19 13:15 CK-MB (CK-2) 0.5 ng/mL (0.0-2.4) 01/31/19 13:15 CK-MB (CK-2) Rel Index 1.5 01/31/19 13:15 Troponin I <0.012 ng/mL (0.000-0.034) 01/31/19 13:15 Total Protein 6.4 g/dL (6.3-8.2) 02/03/19 08:13 Albumin 3.1 g/dL (3.5-5.0) L 02/03/19 08:13 Vancomycin Trough 17.2 ug/mL 02/02/19 07:24 Microbiology 01/30/19 18:27 Blood Blood Culture - Preliminary No Growth after 120 hours 01/31/19 05:14 Foot - Right Gram Stain - Final 01/31/19 05:14 Foot - Right Wound Culture - Final Methicillin resist S. aureus Enterobacter cloacae Assessment and Plan (1) Diabetic ulcer of right foot associated with diabetes mellitus due to underlying condition, with fat layer exposed Status: Acute Code(s): E08.621 - DIABETES MELLITUS DUE TO UNDERLYING CONDITION W FOOT ULCER; L97.512 - NON-PRS CHRONIC ULCER OTH PRT RIGHT FOOT W FAT LAYER EXPOSED SNOMED Code(s): 182179611 (2) Morbid obesity with BMI of 50.0-59.9, adult Narrative/Plan: 63-year-old woman who has a history of diabetes mellitus type 2 poorly controlled, obesity and recurrent ulcerations to her right foot. She's been recently found wound healing center a total contact cast was being utilized, and allow complete healing of her ulceration. Shortly after coming out of the cast going into her shoe she again has are ulcerated now presents to Hospital. Cultures obtained. Antibiotic therapy with Rocephin is being utilized with a known history of her Klebsiella, Flagyl was also added with concerns to any anaerobic infection also occurring. Local wound care is with [facility]. She needs offloaded while she is in hospital. She'll need to follow back to the wound healing center after discharge he will need alternative footgear after discharge to allow more sustained healing of her ulcerations. While in Hospital improved glucose control, add a multivitamin and monitor cultures. 02/01/2019 the wound culture showed evidence of presumptive MRSA and gram- negative bacilli. Continue vancomycin therapy and Rocephin and metronidazole for now. Await final cultures to determine potential options for antibiotics at discharge. Bone scan is requested to evaluate the possibility of underlying osteomyelitis that he'll. She'll follow back up in the wound healing Center and will need further maneuvers for offloading such as a total contact cast it may need to be in [place] walker or similar for a more long-term fix. 02/03/2019 MRSA and Enterobacter isolated. Both are susceptible to trimethoprim sulfamethoxazole. The patient is improving and will need follow-up in the wound healing Center. This will allow some further treatment to the recurrent pressure ulceration to her heel. The bone scan is evaluated as is the most recent x-ray. It does not appear that the patient has active osteomyelitis it would not require long-term IV antibiotic therapy. She was transitioned to oral trimethoprim sulfamethoxazole and when medically stable to discharge home with follow-up with the wound healing Center. 02/04/2019 patient is improving. Bone scan is without evidence of underlying osteomyelitis. The pressure ulceration is starting to improve. We'll continue with the therahoney dressing. She is to follow-up in the wound healing center hopefully next week which point in time hopefully total contact cast can be applied. With the need to work with the DME supplier to ensure that she is able to have a specially group such as an OWL designed to allow long-term offloading of the site.Antibiotic therapy with trimethoprim sulfamethoxazole was sent to her pharmacy given the MRSA and Enterobacter that have been isolated. Status: Chronic Code(s): E66.01 - MORBID (SEVERE) OBESITY DUE TO EXCESS C ALORIES; Z68.43 - BODY MASS INDEX (BMI) 50.0-59.9, ADULT SNOMED Code(s): 666447338
== END 2019-02-04 17:53 | disposition home or self-care (01) | DRG 638 ==
LOC: EC 17:13 → 4MS4W 20:03
PROVIDERS: ADMIT Internal Medicine; ATTEND Internal Medicine
DX: E11.69 Type 2 diabetes mellitus with other specified complication (principal); F31.30 Bipolar disorder, current episode depressed, mild or moderate severity, unspecified; L97.412 Non-pressure chronic ulcer of right heel and midfoot with fat layer exposed; M86.671 Other chronic osteomyelitis, right ankle and foot; Z68.43 Body mass index [BMI] 50.0-59.9, adult; Z16.24 Resistance to multiple antibiotics; D69.6 Thrombocytopenia, unspecified; E03.9 Hypothyroidism, unspecified; E11.621 Type 2 diabetes mellitus with foot ulcer; E11.65 Type 2 diabetes mellitus with hyperglycemia; E66.01 Morbid (severe) obesity due to excess calories; E78.5 Hyperlipidemia, unspecified; F41.9 Anxiety disorder, unspecified; E11.42 Type 2 diabetes mellitus with diabetic polyneuropathy; I10 Essential (primary) hypertension; J44.9 Chronic obstructive pulmonary disease, unspecified; K74.60 Unspecified cirrhosis of liver; M81.0 Age-related osteoporosis without current pathological fracture; Z79.4 Long term (current) use of insulin; Z79.82 Long term (current) use of aspirin; Z79.890 Hormone replacement therapy; Z79.899 Other long term (current) drug therapy; Z82.49 Family history of ischemic heart disease and other diseases of the circulatory system; Z85.41 Personal history of malignant neoplasm of cervix uteri; Z87.891 Personal history of nicotine dependence; Z88.0 Allergy status to penicillin; Z90.710 Acquired absence of both cervix and uterus; Z79.891 Long term (current) use of opiate analgesic; Z88.8 Allergy status to other drugs, medicaments and biological substances; Z98.42 Cataract extraction status, left eye; Z98.41 Cataract extraction status, right eye
CPT/HCPCS: 36415; 78315; 80053; 80202; 82550; 82553; 83036; 83605; 84484; 85025; 87040; 87070; 87077; 87186; 87205; 93005; 96365; 96367; 99285

== ENCOUNTER 2019-02-28 12:42 | Emergency (ER) | payer OTHER ==
[2019-02-28] MEDS ORDERED: SODIUM CHLORIDE 0.9% 1,000 ML IV STA (13:07)
[2019-02-28] MEDS ORDERED: PANTOPRAZOLE 40 MG/10 ML VIAL IVP STA (13:07)
[2019-02-28] MEDS ORDERED: DICYCLOMINE 10 MG/ML 2 ML AMP IM STA (13:07)
[2019-02-28] MEDS ORDERED: ONDANSETRON 4 MG/2 ML VIAL IVP STA (13:07)
--- NOTE | 2019-02-28 13:14 | ED ---
General Adult HPI - General Chief complaint: Nausea/Vomiting/Diarrhea Stated complaint: NVD Time Seen by Provider: 02/28/19 12:59 Source: patient, RN notes reviewed Mode of arrival: ambulatory Limitations: no limitations - History of Present Illness Initial comments: Patient is a pleasant [age]-year-old female presenting to the emergency department with nausea vomiting diarrhea. Onset of symptoms was 4-5 days ago. Patient is having diarrhea sometimes up to 10 times daily. Patient has intermittent cramping and some mild discomfort of her abdomen however no pain. Patient has continued nausea. Patient has vomited only one time. Patient is concerned she might be a little bit dehydrated. No abdominal pain this time. This is not a chronic problem. - Related Data Home Medications Medication Instructions Recorded Confirmed metFORMIN HCL [Glucophage] 850 mg PO BID 02/18/14 02/28/19 Aspirin EC [Ecotrin Low Dose] 81 mg PO DAILY 04/08/18 02/28/19 Cetirizine HCl [Zyrtec] 10 mg PO DAILY 04/08/18 02/28/19 Insulin Glargine,Hum.rec.anlog 100 unit SQ BID 04/08/18 02/28/19 [Basaglar Kwikpen U-100] Simvastatin [Zocor] 40 mg PO HS 04/08/18 02/28/19 Triamterene/Hydrochlorothiazid 1 tab PO BID@1000,1400 04/08/18 02/28/19 [Maxzide 37.5-25] ARIPiprazole [Abilify] 5 mg PO HS 10/12/18 02/28/19 Venlafaxine HCl [Effexor XR] 225 mg PO DAILY 10/12/18 02/28/19 traZODone HCL [Desyrel] 300 mg PO HS 10/12/18 02/28/19 Insulin Lispro [Admelog] 35 unit SQ AC-TID 11/25/18 02/28/19 Latanoprost/Pf [Latanoprost 0.005% 1 drop BOTH EYES HS 02/28/19 02/28/19 Eye Drop] Venlafaxine HCl [Effexor XR] 75 mg PO 02/28/19 Previous Rx's Medication Instructions Recorded Cyclobenzaprine [Flexeril] 10 mg PO BID tab 02/16/18 Pregabalin [Lyrica] 75 mg PO BID cap 02/16/18 Levothyroxine Sodium [Synthroid] 100 mcg PO DAILY@0630 tab 04/11/18 Dicyclomine [Bentyl] 20 mg PO QID #20 tablet 02/28/19 Allergies Allergy/AdvReac Type Severity Reaction Status Date / Time meropenem Allergy Itching Verified 02/28/19 13:38 Penicillins Allergy Anaphylaxis Verified 02/28/19 13:38 Review of Systems ROS Statement: Those systems with pertinent positive or pertinent negative responses have been documented in the HPI. ROS Other: All systems not noted in ROS Statement are negative. Constitutional: Denies: fever Eyes: Denies: eye pain ENT: Denies: ear pain Respiratory: Denies: cough Cardiovascular: Denies: chest pain Endocrine: Denies: fatigue Gastrointestinal: Reports: nausea, vomiting, diarrhea. Denies: abdominal pain Genitourinary: Denies: dysuria Musculoskeletal: Denies: back pain Skin: Denies: rash Neurological: Denies: weakness Past Medical History Past Medical History: Diabetes Mellitus, Cancer, COPD, Diabetes Mellitus, Eye Disorder, Hyperlipidemia, Liver Disease, Musculoskeletal Disorder, Neurologic Disorder, Osteoarthritis (OA), Sleep Apnea/CPAP/BIPAP, Thyroid Disorder Additional Past Medical History / Comment(s): History of osteomyelitis left #3 toe and left calf: 2004. cervical cancer (in remission.) Cirrhosis of the liver r/t diabetes History of Any Multi-Drug Resistant Organisms: MRSA Date of last positivie culture/infection: 01/31/19 MDRO Source:: Right Foot Past Surgical History: Section, Cholecystectomy, Hysterectomy, Orthopedic Surgery, Tonsillectomy, Tubal Ligation Additional Past Surgical History / Comment(s): Cataracts and laser surgery for glaucoma. Multiple I&D to left foot and lower leg. Past Anesthesia/Blood Transfusion Reactions: No Reported Reaction Past Psychological History: Anxiety, Bipolar, Depression Smoking Status: Former smoker Past Alcohol Use History: None Reported Past Drug Use History: Marijuana - Past Family History Father Family Medical History: Congestive Heart Failure (CHF), Coronary Artery Disease (CAD), Myocardial Infarction ([place]) Mother Family Medical History: Coronary Artery Disease (CAD), CVA/TIA, Dementia, Myocardial Infarction ([place]) General Exam Limitations: no limitations General appearance: alert, in no apparent distress, obese Head exam: Present: normocephalic Eye exam: Present: normal appearance ENT exam: Present: mucous membranes dry Neck exam: Present: normal inspection Respiratory exam: Present: normal lung sounds bilaterally Cardiovascular Exam: Present: regular rate, normal rhythm GI/Abdominal exam: Present: soft, normal bowel sounds. Absent: distended, tenderness, guarding, rebound, rigid, pulsatile mass Extremities exam: Present: other (Right lower extremity cast) Neurological exam: Present: alert Psychiatric exam: Present: normal affect, normal mood Skin exam: Present: normal color Course Vital Signs 02/28/19 02/28/19 12:53 14:00 Temperature 98.2 F Pulse Rate 73 72 Respiratory 16 16 Rate Blood Pressure 111/56 142/78 O2 Sat by Pulse 99 99 Oximetry Medical Decision Making - Medical Decision Making Patient reevaluated and resting comfortably in bed. Medications and fluids are being given at this point. Patient updated on results and need for follow-up. Patient specifically updated on elevated lipase and need for recheck of this in the future. - Lab Data Result diagrams: 02/28/19 15:09 02/28/19 15:09 Lab Results 02/28/19 02/28/19 Range/Units 15:09 15:09 WBC 6.6 (3.8-10.6) k/uL RBC 4.70 (3.80-5.40) m/uL Hgb 13.2 (11.4-16.0) gm/dL Hct 40.9 (34.0-46.0) % MCV 86.9 (80.0-100.0) fL MCH 28.1 (25.0-35.0) pg MCHC 32.4 (31.0-37.0) g/dL RDW 15.9 H (11.5-15.5) % Plt Count 73 L (150-450) k/uL Neutrophils % 70 % Lymphocytes % 20 % Monocytes % 5 % Eosinophils % 4 % Basophils % 0 % Neutrophils # 4.6 (1.3-7.7) k/uL Lymphocytes # 1.3 (1.0-4.8) k/uL Monocytes # 0.3 (0-1.0) k/uL Eosinophils # 0.3 (0-0.7) k/uL Basophils # 0.0 (0-0.2) k/uL Poikilocytosis Slight Sodium 141 (137-145) mmol/L Potassium 4.4 (3.5-5.1) mmol/L Chloride 105 (98-107) mmol/L Carbon Dioxide 27 (22-30) mmol/L Anion Gap 9 mmol/L BUN 20 H (7-17) mg/dL Creatinine 0.76 (0.52-1.04) mg/dL Est GFR (CKD-EPI)AfAm >90 (>60 ml/min/1.73 sqM) Est GFR (CKD-EPI)NonAf 85 (>60 ml/min/1.73 sqM) Glucose 235 H (74-99) mg/dL Calcium 9.9 (8.4-10.2) mg/dL Total Bilirubin 0.6 (0.2-1.3) mg/dL AST 22 (14-36) U/L ALT 16 (9-52) U/L Alkaline Phosphatase 74 (38-126) U/L Total Protein 7.5 (6.3-8.2) g/dL Albumin 4.0 (3.5-5.0) g/dL Amylase 55 (30-110) U/L Lipase 740 H (23-300) U/L Disposition Clinical Impression: Diarrhea Disposition: HOME SELF-CARE Instructions (If sedation given, give patient instructions): Acute Diarrhea (ED) Additional Instructions: Please follow-up with primary care physician in the next couple days for rech juan r. He will need to have your lipase level rechecked. Return for abdominal pain, not tolerating oral intake, worsening symptoms or other concerns. Prescription sent [facility] Prescriptions: Dicyclomine [Bentyl] 20 mg PO QID #20 tablet Is patient prescribed a controlled substance at d/c from ED?: No Referrals: Lilibeth Seymour MD [Primary Care Provider] - 1-2 days Time of Disposition: 16:01
[2019-02-28 15:13] LABS: Basophils % (A) 0 %; Eosinophils # (A) 0.3 k/uL (0-0.7); Eosinophils % (A) 4 %; HCT 40.9 % (34.0-46.0); HGB 13.2 gm/dL (11.4-16.0); Lymphocytes # (A) 1.3 k/uL (1.0-4.8); Lymphocytes % (A) 20 %; MCH 28.1 pg (25.0-35.0); MCHC 32.4 g/dL (31.0-37.0); MCV 86.9 fL (80.0-100.0); Mean Platelet Volume 8.9; Monocytes # (A) 0.3 k/uL (0-1.0); Monocytes % (A) 5 %; Neutrophils # (A) 4.6 k/uL (1.3-7.7); Neutrophils % (A) 70 %; Poikilocytosis Slight; RDW 15.9 % (11.5-15.5); WBC 6.6 k/uL (3.8-10.6)
[2019-02-28 15:18] LABS: Platelet Count 73 k/uL (150-450)
[2019-02-28 15:29] LABS: ALT 16 U/L (9-52); AST 22 U/L (14-36); African American GFR (CKD) >90 (>60 ml/min/1.73 sqM); Alkaline Phosphatase 74 U/L (38-126); Amylase 55 U/L (30-110); Anion Gap 9 mmol/L; Blood Urea Nitrogen 20 mg/dL (7-17); Calcium 9.9 mg/dL (8.4-10.2); Carbon Dioxide 27 mmol/L (22-30); Chloride 105 mmol/L (98-107); Glucose 235 mg/dL (74-99); Non-African American GFR(CKD) 85 (>60 ml/min/1.73 sqM); Potassium 4.4 mmol/L (3.5-5.1); Sodium 141 mmol/L (137-145); Total Bilirubin 0.6 mg/dL (0.2-1.3); Total Protein 7.5 g/dL (6.3-8.2)
[2019-02-28 16:41] VITALS: BP 142/74; PULSE 74; RESP 18
[2019-02-28 17:45] VITALS: TEMP 98
== END 2019-02-28 17:40 | disposition home or self-care (01) ==
LOC: EC 12:42
DX: R19.7 Diarrhea, unspecified (principal); R74.8 Abnormal levels of other serum enzymes; R11.2 Nausea with vomiting, unspecified; E11.9 Type 2 diabetes mellitus without complications; J44.9 Chronic obstructive pulmonary disease, unspecified; E78.5 Hyperlipidemia, unspecified; M19.90 Unspecified osteoarthritis, unspecified site; G47.30 Sleep apnea, unspecified; E07.9 Disorder of thyroid, unspecified; F31.9 Bipolar disorder, unspecified; F41.9 Anxiety disorder, unspecified; Z87.891 Personal history of nicotine dependence; Z88.0 Allergy status to penicillin; Z88.1 Allergy status to other antibiotic agents; Z79.4 Long term (current) use of insulin; Z79.82 Long term (current) use of aspirin; Z79.899 Other long term (current) drug therapy; Z86.14 Personal history of Methicillin resistant Staphylococcus aureus infection; Z90.49 Acquired absence of other specified parts of digestive tract; Z85.41 Personal history of malignant neoplasm of cervix uteri; Z90.710 Acquired absence of both cervix and uterus; Z99.89 Dependence on other enabling machines and devices; Z97.8 Presence of other specified devices
CPT/HCPCS: 36415; 80053; 82150; 83690; 85025; 96361; 96372; 96374; 96375; 99284

== ENCOUNTER 2019-03-04 06:47 | Emergency (ER) | payer OTHER ==
[2019-03-04 06:55] VITALS: TEMP 98
--- NOTE | 2019-03-04 07:25 | ED ---
General Adult HPI - General Chief complaint: Fall Stated complaint: Fall Time Seen by Provider: 03/04/19 06:56 Source: patient, EMS, RN notes reviewed Mode of arrival: EMS Limitations: no limitations - History of Present Illness Initial comments: 63-year-old female with multiple past medical problems presents to the emergency department for a chief complaint of mechanical fall. Patient states that she slipped on a garbage bag and fell on a bent left knee. Patient states she also hit her left side forehead. She denies any neck pain. Denies any chest or back pain. Denies loss of consciousness. Denies blood thinners. Does admit to slight headache.Patient has no other complaints at this time including shortness of breath, chest pain, abdominal pain, nausea or vomiting, headache, or visual changes. - Related Data Home Medications Medication Instructions Recorded Confirmed metFORMIN HCL [Glucophage] 850 mg PO BID 02/18/14 02/28/19 Aspirin EC [Ecotrin Low Dose] 81 mg PO DAILY 04/08/18 02/28/19 Cetirizine HCl [Zyrtec] 10 mg PO DAILY 04/08/18 02/28/19 Insulin Glargine,Hum.rec.anlog 100 unit SQ BID 04/08/18 02/28/19 [Basaglar Kwikpen U-100] Simvastatin [Zocor] 40 mg PO HS 04/08/18 02/28/19 Triamterene/Hydrochlorothiazid 1 tab PO BID@1000,1400 04/08/18 02/28/19 [Maxzide 37.5-25] ARIPiprazole [Abilify] 5 mg PO HS 10/12/18 02/28/19 Venlafaxine HCl [Effexor XR] 225 mg PO DAILY 10/12/18 02/28/19 traZODone HCL [Desyrel] 300 mg PO HS 10/12/18 02/28/19 Insulin Lispro [Admelog] 35 unit SQ AC-TID 11/25/18 02/28/19 Latanoprost/Pf [Latanoprost 0.005% 1 drop BOTH EYES HS 02/28/19 02/28/19 Eye Drop] Venlafaxine HCl [Effexor XR] 75 mg PO 02/28/19 Previous Rx's Medication Instructions Recorded Cyclobenzaprine [Flexeril] 10 mg PO BID tab 02/16/18 Pregabalin [Lyrica] 75 mg PO BID cap 02/16/18 Levothyroxine Sodium [Synthroid] 100 mcg PO DAILY@0630 tab 04/11/18 Dicyclomine [Bentyl] 20 mg PO QID #20 tablet 02/28/19 Allergies Allergy/AdvReac Type Severity Reaction Status Date / Time meropenem Allergy Itching Verified 02/28/19 13:38 Penicillins Allergy Anaphylaxis Verified 02/28/19 13:38 Review of Systems ROS Statement: Those systems with pertinent positive or pertinent negative responses have been documented in the HPI. ROS Other: All systems not noted in ROS Statement are negative. Past Medical History Past Medical History: Diabetes Mellitus, Cancer, COPD, Diabetes Mellitus, Eye Disorder, Hyperlipidemia, Liver Disease, Musculoskeletal Disorder, Neurologic Disorder, Osteoarthritis (OA), Sleep Apnea/CPAP/BIPAP, Thyroid Disorder Additional Past Medical History / Comment(s): History of osteomyelitis left #3 toe and left calf: 2004. cervical cancer (in remission.) Cirrhosis of the liver r/t diabetes History of Any Multi-Drug Resistant Organisms: MRSA Date of last positivie culture/infection: 01/31/19 MDRO Source:: Right Foot Past Surgical History: Section, Cholecystectomy, Hysterectomy, Orthopedic Surgery, Tonsillectomy, Tubal Ligation Additional Past Surgical History / Comment(s): Cataracts and laser surgery for glaucoma. Multiple I&D to left foot and lower leg. Past Anesthesia/Blood Transfusion Reactions: No Reported Reaction Past Psychological History: Anxiety, Bipolar, Depression Smoking Status: Former smoker Past Alcohol Use History: None Reported Past Drug Use History: Marijuana - Past Family History Father Family Medical History: Congestive Heart Failure (CHF), Coronary Artery Disease (CAD), Myocardial Infarction ([place]) Mother Family Medical History: Coronary Artery Disease (CAD), CVA/TIA, Dementia, Myocardial Infarction ([place]) General Exam Limitations: no limitations General appearance: alert, in no apparent distress Head exam: Present: atraumatic, normocephalic, normal inspection Eye exam: Present: normal appearance, PERRL, EOMI. Absent: scleral icterus, con junctival injection, periorbital swelling ENT exam: Present: normal exam, mucous membranes moist Neck exam: Present: normal inspection, full ROM. Absent: tenderness, meningismus, lymphadenopathy Respiratory exam: Present: normal lung sounds bilaterally. Absent: respiratory distress, wheezes, rales, rhonchi, stridor Cardiovascular Exam: Present: regular rate, normal rhythm, normal heart sounds. Absent: systolic murmur, diastolic murmur, rubs, gallop, clicks Extremities exam: Present: tenderness (Denies tenderness of the anterior left knee), normal capillary refill (cap refill less than 2 seconds, DP pulse 2+ in the left lower extremity.), other (sensation intact in LLE). Absent: full ROM (Patient was about 40 flexion of the left knee), joint swelling (No edema or ecchymosis of the left knee.) Neurological exam: Present: alert, oriented X3, other (GCS 15) Psychiatric exam: Present: normal affect, normal mood Course Vital Signs 03/04/19 03/04/19 06:52 09:07 Temperature 98.0 F 98.0 F Pulse Rate 81 67 Respiratory 18 16 Rate Blood Pressure 132/71 141/67 O2 Sat by Pulse 98 97 Oximetry Medical Decision Making - Medical Decision Making Patient is well-appearing, she is resting watching TV. Vitals are stable. Physical exam is generally unremarkable. CT brain shows no acute intracranial abnormality. CT cervical spine shows no acute fracture or malalignment. There is moderate spondylitic changes in the mid to lower cervical spine. X-ray of the left knee shows no acute fracture or dislocation. Discussed concussion precautions. Discussed follow-up with primary care for recheck in one to 2 days. Patient is aware to return to the emergency Department if she has any worsening symptoms. Patient ambulatory. Disposition Clinical Impression: Head injury, Left knee pain Disposition: HOME SELF-CARE Condition: Good Instructions (If sedation given, give patient instructions): Head Injury (ED), Knee Pain (ED) Additional Instructions: Please take Tylenol for pain. Please follow-up with primary care in 1-2 days. Return to the emergency department if you have any worsening symptoms. Is patient prescribed a controlled substance at d/c from ED?: No Referrals: Lilibeth Seymour MD [Primary Care Provider] - 1-2 days Time of Disposition: 08:34
--- NOTE | 2019-03-04 08:14 | XR ---
EXAMINATION TYPE: XR knee 4V LT DATE OF EXAM: 03/04/2019 CLINICAL HISTORY: Fall injury with pain. TECHNIQUE: Three views of the left knee are obtained. Fourth sunrise view was acquired. LUMBAR COMPARISON: None. FINDINGS: There is no acute fracture/dislocation evident in left knee. Mild to moderate tricompartme nt joint space loss with mild patellofemoral compartment joint space spurring. Mild diffuse subcutane ous edema. IMPRESSION: There is no acute fracture or dislocation in the left knee.
--- NOTE | 2019-03-04 08:23 | CT ---
EXAMINATION TYPE: CT brain bear wo con DATE OF EXAM: 03/04/2019 COMPARISON: 02/18/2018 HISTORY: 63-year-old female with Fall, headache CT DLP: 1488.6 mGycm Automated exposure control for dose reduction was used. Technique: Examination of the head was done in axial plane without intravenous contrast. Coronal and sagittal reconstructions performed. CT of the cervical spine was obtained in axial plane without intravenous injection of contrast mater ial. Coronal and sagittal reformatted images were obtained from the axial views for evaluation of f ractures, spinal alignment and canal. FINDINGS: Head: There is no evidence of acute intracranial hemorrhage, acute ischemic changes, mass, mass-effect, or extra-axial fluid collection. There is no effacement of cerebral sulci or basal subarachnoid cister ns. There is no hydrocephalus. There is no midline shift. Cho-white matter distinction is preserv ed. Leftward nasal septal deviation. Cerumen within the left external auditory canal. Patient has paranas al sinuses are clear. Orbits and globes appear intact. Cervical spine: No craniocervical junction abnormality, predental space widening, or prevertebral soft tissue swellin g. Heterotopic ossification along the posterior midline at the C4 and C5 level. Mild to moderate degenerative disc disease lower cervical spine with corresponding facet and uncovert ebral joint arthropathy. Alignment is maintained. No acute fracture is identified. Disc osteophyte complex at C5-C6 causing mild spinal canal stenosis. Moderate bilateral neuroforaminal stenosis at this level as well. Sagittal and coronal reformatted images confirm above findings. COMBINED IMPRESSION: 1. No acute intracranial abnormality seen. 2. No acute fracture or malalignment of the cervical spine. Moderate spondylytic change mid to lower cervical spine.
[2019-03-04 09:08] VITALS: BP 141/67; PULSE 67; RESP 16
== END 2019-03-04 09:07 | disposition home or self-care (01) ==
LOC: EC 06:47
DX: S09.90XA Unspecified injury of head, initial encounter (principal); M25.562 Pain in left knee; E11.9 Type 2 diabetes mellitus without complications; E78.5 Hyperlipidemia, unspecified; G47.30 Sleep apnea, unspecified; F41.9 Anxiety disorder, unspecified; F31.9 Bipolar disorder, unspecified; Z79.82 Long term (current) use of aspirin; Z79.4 Long term (current) use of insulin; Z79.899 Other long term (current) drug therapy; Z88.0 Allergy status to penicillin; Z88.1 Allergy status to other antibiotic agents; Z87.891 Personal history of nicotine dependence; Z99.89 Dependence on other enabling machines and devices; Z85.41 Personal history of malignant neoplasm of cervix uteri; W01.10XA Fall on same level from slipping, tripping and stumbling with subsequent striking against unspecified object, initial encounter
CPT/HCPCS: 70450; 72125; 99284

== ENCOUNTER → 2019-08-14 | Outpatient (CLI) | payer OTHER ==
[2019-08-14 13:09] LABS: Basophils % (A) 1 %; Eosinophils # (A) 0.3 k/uL (0-0.7); Eosinophils % (A) 5 %; HCT 36.6 % (34.0-46.0); HGB 11.8 gm/dL (11.4-16.0); Hypochromasia Slight; Lymphocytes # (A) 0.9 k/uL (1.0-4.8); Lymphocytes % (A) 15 %; MCH 28.4 pg (25.0-35.0); MCHC 32.4 g/dL (31.0-37.0); MCV 87.6 fL (80.0-100.0); Mean Platelet Volume 8.8; Monocytes # (A) 0.3 k/uL (0-1.0); Monocytes % (A) 5 %; Neutrophils # (A) 4.3 k/uL (1.3-7.7); Neutrophils % (A) 74 %; Platelet Count 98 k/uL (150-450); RBC 4.17 m/uL (3.80-5.40); RDW 14.7 % (11.5-15.5); WBC 5.8 k/uL (3.8-10.6)
[2019-08-14 20:01] LABS: African American GFR (CKD) 92.2 (60.0-200.0); Albumin 3.4 g/dL (3.80-4.90); Albumin/Globulin Ratio 0.97 (1.60-3.17); Anion Gap 12.2 mmol/L (4.00-12.00); BUN/Creat Ratio 16.25 Ratio (12.00-20.00); Calcium 8.8 mg/dL (8.7-10.3); Carbon Dioxide 25.8 mmol/L (21.6-31.8); Globulin 3.5 g/dL (1.6-3.3); Non-African American GFR(CKD) 79.6 (60.0-200.0); Potassium 4.5 mmol/L (3.5-5.5); Total Bilirubin 0.5 mg/dL (0.3-1.2); Total Protein 6.9 g/dL (6.2-8.2)
[2019-08-14 22:33] LABS: Hemoglobin A1C 8.9 % (4.0-6.0)
== END | disposition home or self-care (01) ==
LOC: LABWHC1 11:11
PROVIDERS: ATTEND Thoracic Surgery (Cardiothoracic Vascular Surgery)
DX: E11.621 Type 2 diabetes mellitus with foot ulcer (principal); E11.40 Type 2 diabetes mellitus with diabetic neuropathy, unspecified; E11.65 Type 2 diabetes mellitus with hyperglycemia; M86.671 Other chronic osteomyelitis, right ankle and foot; E66.01 Morbid (severe) obesity due to excess calories
CPT/HCPCS: 36415; 80053; 83036; 84134; 85025

== ENCOUNTER 2019-11-16 13:23 | Emergency (ER) | payer OTHER ==
[2019-11-16 13:38] VITALS: BP 133/65; PULSE 81; RESP 16; TEMP 98.3
--- NOTE | 2019-11-16 14:32 | ED ---
Wound/Laceration HPI - General Chief Complaint: Wound/Laceration Stated Complaint: cast is wet over wound Time Seen by Provider: 11/16/19 13:47 Source: patient, family Mode of arrival: wheelchair Limitations: physical limitation - History of Present Illness Initial Comments: Patient is a 63-year-old female presenting to the emergency Department with com plaints of an issue with her cast on her right foot. Patient has a soft cast on her right foot due to a chronic heel ulcer. She also wears a walking boot over this cast. Patient states she thought she got a little water onto her cast today while cooking and was concerned that the cast was getting wet and needed to be change. Patient denies any fever, chills. She states her next follow-up is not until . She has no further complaints at this time. Upon arrival to the ER her vital signs are stable. - Related Data Home Medications Medication Instructions Recorded Confirmed metFORMIN HCL [Glucophage] 850 mg PO BID 02/18/14 02/28/19 Aspirin EC [Ecotrin Low Dose] 81 mg PO DAILY 04/08/18 02/28/19 Cetirizine HCl [Zyrtec] 10 mg PO DAILY 04/08/18 02/28/19 Insulin Glargine,Hum.rec.anlog 100 unit SQ BID 04/08/18 02/28/19 [Dreaglmikhail Hicks U-100] Simvastatin [Zocor] 40 mg PO HS 04/08/18 02/28/19 Triamterene/Hydrochlorothiazid 1 tab PO BID@1000,1400 04/08/18 02/28/19 [Maxzide 37.5-25] ARIPiprazole [Abilify] 5 mg PO HS 10/12/18 02/28/19 Venlafaxine HCl [Effexor XR] 225 mg PO DAILY 10/12/18 02/28/19 traZODone HCL [Desyrel] 300 mg PO HS 10/12/18 02/28/19 Insulin Lispro [Admelog] 35 unit SQ AC-TID 11/25/18 02/28/19 Latanoprost/Pf [Latanoprost 0.005% 1 drop BOTH EYES HS 02/28/19 02/28/19 Eye Drop] Venlafaxine HCl [Effexor XR] 75 mg PO 02/28/19 Previous Rx's Medication Instructions Recorded Cyclobenzaprine [Flexeril] 10 mg PO BID tab 02/16/18 Pregabalin [Lyrica] 75 mg PO BID cap 02/16/18 Levothyroxine Sodium [Synthroid] 100 mcg PO DAILY@0630 tab 04/11/18 Dicyclomine [Bentyl] 20 mg PO QID #20 tablet 02/28/19 Allergies Allergy/AdvReac Type Severity Reaction Status Date / Time meropenem Allergy Itching Verified 11/16/19 13:38 Penicillins Allergy Anaphylaxis Verified 11/16/19 13:38 Review of Systems ROS Statement: Those systems with pertinent positive or pertinent negative responses have been documented in the HPI. ROS Other: All systems not noted in ROS Statement are negative. Past Medical History Past Medical History: Diabetes Mellitus, Cancer, COPD, Diabetes Mellitus, Eye Disorder, Hyperlipidemia, Liver Disease, Musculoskeletal Disorder, Neurologic Disorder, Osteoarthritis (OA), Sleep Apnea/CPAP/BIPAP, Thyroid Disorder Additional Past Medical History / Comment(s): History of osteomyelitis left #3 toe and left calf: 2004. cervical cancer (in remission.) Cirrhosis of the liver r/t diabetes History of Any Multi-Drug Resistant Organisms: MRSA Date of last positivie culture/infection: 10/30/19 MDRO Source:: RT FOOT Past Surgical History: Section, Cholecystectomy, Hysterectomy, Orthopedic Surgery, Tonsillectomy, Tubal Ligation Additional Past Surgical History / Comment(s): Cataracts and laser surgery for glaucoma. Multiple I&D to left foot and lower leg. Past Anesthesia/Blood Transfusion Reactions: No Reported Reaction Past Psychological History: Anxiety, Bipolar, Depression Past Alcohol Use History: None Reported Past Drug Use History: Marijuana - Past Family History Father Family Medical History: Congestive Heart Failure (CHF), Coronary Artery Disease (CAD), Myocardial Infarction (CA) Mother Family Medical History: Coronary Artery Disease (CAD), CVA/TIA, Dementia, Myocardial Infarction (CA) General Exam - General Exam Comments Initial Comments: GENERAL: Patient is well-developed and well-nourished. Patient is nontoxic and in no acute distress. HEAD: Atraumatic, normocephalic. EYES: Pupils equal round and reactive to light, extraocular movements intact, sclera anicteric, conjunctiva are normal. Eyelids were unremarkable. ENT: TMs normal, nares patent, oropharynx clear without exudates. Moist mucous membranes. NECK: Normal range of motion, supple without lymphadenopathy or JVD. LUNGS: Unlabored respirations. Breath sounds clear to auscultation bilaterally and equal. No wheezes rales or rhonchi. HEART: Regular rate and rhythm without murmurs, rubs or gallops. ABDOMEN: Soft, nontender, normoactive bowel sounds. No guarding, no rebound. No masses appreciated. : Deferred MUSCULOSKELETAL: Patient has a soft cast in place on her right ankle that covers her toes. This cast is hard, there are no soft spots. There is no obvious swelling on her right lower extremity that I can see. I am not able to check pulses secondary to cast. NEUROLOGICAL: Patient is alert and oriented x 3. Motor and sensory are also intact. Cranial nerves II through XII grossly intact. Symmetrical smile. Normal speech, normal gait. PSYCH: Normal mood, normal affect. SKIN: Warm, Dry, normal turgor, no rashes or lesions noted. Limitations: physical limitation Course Vital Signs 11/16/19 13:32 Temperature 98.3 F Pulse Rate 81 Respiratory 16 Rate Blood Pressure 133/65 O2 Sat by Pulse 98 Oximetry Medical Decision Making - Medical Decision Making Patient is 63-year-old female here with possible water into her cast on her right ankle. Patient has soft cast in place, there is no softness, no breakdown of the cast and I can see. I'm not able to evaluate the foot underneath as the cast cover her toes. She's been afebrile. I recommended following up with her doctor tomorrow. I discussed with patient that I do not want to remove this cath as we do not have the same material here in the ER. She states she is not able to walk without her cast in place. She states she gets her cast changed weekly. Patient is stable for discharge and she is in agreement with this plan of care. Case discussed with Dr. Shankar. Disposition Clinical Impression: Chronic wound of extremity Disposition: HOME SELF-CARE Condition: Stable Instructions (If sedation given, give patient instructions): Chronic Wounds (ED) Additional Instructions: Please return to the Emergency Department if symptoms worsen or any other concerns. Follow-up with PCP tomorrow morning as discussed. Remove outer black walking boot a few times a day to air dry. Is patient prescribed a controlled substance at d/c from ED?: No Referrals: Lilibeth Seymour MD [Primary Care Provider] - 1-2 days
== END 2019-11-16 14:48 | disposition home or self-care (01) ==
LOC: EC 13:23
DX: E11.621 Type 2 diabetes mellitus with foot ulcer (principal); L97.419 Non-pressure chronic ulcer of right heel and midfoot with unspecified severity; G47.30 Sleep apnea, unspecified; M19.90 Unspecified osteoarthritis, unspecified site; E78.5 Hyperlipidemia, unspecified; F31.9 Bipolar disorder, unspecified; F41.9 Anxiety disorder, unspecified; E11.39 Type 2 diabetes mellitus with other diabetic ophthalmic complication; H42 Glaucoma in diseases classified elsewhere; Z79.899 Other long term (current) drug therapy; Z79.4 Long term (current) use of insulin; Z79.84 Long term (current) use of oral hypoglycemic drugs; Z79.82 Long term (current) use of aspirin; Z88.0 Allergy status to penicillin; Z88.1 Allergy status to other antibiotic agents; Z99.89 Dependence on other enabling machines and devices; Z85.41 Personal history of malignant neoplasm of cervix uteri; Z98.890 Other specified postprocedural states
CPT/HCPCS: 99282

== ENCOUNTER → 2019-12-09 | Outpatient (CLI) | payer OTHER ==
--- NOTE | 2019-12-09 08:59 | US ---
EXAMINATION TYPE: US liver DATE OF EXAM: 12/09/2019 COMPARISON: CT December 10, 2017 CLINICAL HISTORY: R94.5 abn liver function test. EXAM MEASUREMENTS: Liver Length: 13.6 cm Gallbladder Wall: Surgically absent CBD: 0.5 cm Right Kidney: 13.5 x 4.2 x 5.8 cm Pancreas: visualized portions wnl Liver: wnl Gallbladder: Surgically absent CBD: wnl Right Kidney: No hydronephrosis or masses seen Visualized portion of pancreas unremarkable. Visualized liver heterogeneously hyperechoic without int rahepatic ductal dilatation. No surrounding ascites. Suboptimal evaluation for masses due to heteroge neity. Gallbladder surgically absent. Right kidney shows no hydronephrosis. IMPRESSION: Heterogeneous hyperechoic appearance of liver could be on basis of diffuse fatty infiltra tion and/or underlying hepatocellular disease. Comparison CT shows more prominent lobulated contour w ith splenomegaly raising concern for the latter.
== END | disposition home or self-care (01) ==
LOC: RADUSWWP 08:01
PROVIDERS: ATTEND Internal Medicine
DX: R94.5 Abnormal results of liver function studies (principal)
CPT/HCPCS: 76705

== ENCOUNTER → 2020-02-05 | Outpatient (CLI) | payer OTHER ==
--- NOTE | 2020-02-06 14:44 | MM ---
Reason for exam: screening (asymptomatic). Last mammogram was performed 2 years and 4 months ago. History: Patient is postmenopausal and history of other cancer. Family history of breast cancer in paternal grandmother at age 50. Physical Findings: A clinical breast exam by your physician is recommended on an annual basis and results should be correlated with mammographic findings. MG Screening Mammo w CAD Bilateral CC, MLO, and XCCL view(s) were taken. Prior study comparison: September 27, 2017, bilateral MG 3d screening mammo w/cad. December 09, 2015, bilateral MG screening mammo w CAD. There are scattered fibroglandular densities. Finding: There are typically benign vascular calcifications in both breasts. No significant changes in finding since September 27, 2017 and December 09, 2015. ASSESSMENT: Benign, BI-RAD 2 RECOMMENDATION: Routine screening mammogram of both breasts in 1 year.
== END | disposition home or self-care (01) ==
LOC: RADMAMWWP 11:42
PROVIDERS: ATTEND Internal Medicine
DX: Z12.31 Encounter for screening mammogram for malignant neoplasm of breast (principal)
CPT/HCPCS: 77067

== ENCOUNTER → 2020-05-07 | Outpatient (CLI) | payer OTHER ==
[2020-05-07 19:23] LABS: Basophils # (A) 0.03 X 10*3/uL (0.00-0.10); Basophils % (A) 0.6 %; Eosinophils # (A) 0.18 X 10*3/uL (0.04-0.35); Eosinophils % (A) 3.3 %; HCT 38.9 % (37.2-46.3); HGB 12.2 g/dL (12.0-15.0); Lymphocytes # (A) 0.74 X 10*3/uL (0.90-5.00); Lymphocytes % (A) 13.8 %; MCH 27.9 pg (27.0-32.0); MCHC 31.4 g/dL (32.0-37.0); Mean Platelet Volume 12.4 fL (9.5-12.2); Monocytes # (A) 0.29 X 10*3/uL (0.20-1.00); Monocytes % (A) 5.4 %; Neutrophils # (A) 4.12 X 10*3/uL (1.80-7.70); Neutrophils % (A) 76.5 %; Platelet Count 62 X 10*3/uL (140-440); RBC 4.37 X 10*6/uL (4.10-5.20); RDW 15.3 % (11.5-14.5); WBC 5.38 X 10*3/uL (4.50-10.00)
[2020-05-07 20:11] LABS: African American GFR (CKD) 79.4 (60.0-200.0); Albumin/Globulin Ratio 1.43 (1.60-3.17); Anion Gap 7.6 mmol/L (4.00-12.00); BUN/Creat Ratio 21.11 Ratio (12.00-20.00); Calcium 9.1 mg/dL (8.7-10.3); Carbon Dioxide 30.4 mmol/L (21.6-31.8); Globulin 2.8 g/dL (1.6-3.3); Non-African American GFR(CKD) 68.5 (60.0-200.0); Potassium 4.8 mmol/L (3.5-5.5); Total Bilirubin 0.4 mg/dL (0.3-1.2); Total Protein 6.8 g/dL (6.2-8.2)
[2020-05-07 20:29] LABS: Hemoglobin A1C 8.2 % (4.0-6.0)
== END | disposition home or self-care (01) ==
LOC: LABWHC1 10:10
PROVIDERS: ATTEND Podiatrist
DX: I73.9 Peripheral vascular disease, unspecified (principal); E11.621 Type 2 diabetes mellitus with foot ulcer
CPT/HCPCS: 36415; 80053; 83036; 84134; 85025

== ENCOUNTER → 2020-05-13 | Outpatient (CLI) | payer OTHER ==
--- NOTE | 2020-05-13 15:35 | US ---
EXAMINATION TYPE: US venous doppler duplex LE RT DATE OF EXAM: 05/13/2020 1:53 PM COMPARISON: CLINICAL HISTORY: E11.621. No blood thinners. No redness. SIDE PERFORMED: Right TECHNIQUE: The lower extremity deep venous system is examined utilizing real time linear array sonog michelle with graded compression, doppler sonography and color-flow sonography. VESSELS IMAGED: Common Femoral Vein Deep Femoral Vein Greater Saphenous Vein * Femoral Vein Popliteal Vein Small Saphenous Vein * Proximal Calf Veins- limited visualization (* superficial vessels) Limited due to patient body habitus Right Leg: Negative for DVT IMPRESSION: 1. Right lower extremity ultrasound negative for deep venous thrombosis.
== END | disposition home or self-care (01) ==
LOC: RADUSWWP 13:24
PROVIDERS: ATTEND Podiatrist
DX: E11.621 Type 2 diabetes mellitus with foot ulcer (principal); E11.65 Type 2 diabetes mellitus with hyperglycemia; E11.40 Type 2 diabetes mellitus with diabetic neuropathy, unspecified; E66.01 Morbid (severe) obesity due to excess calories; M86.671 Other chronic osteomyelitis, right ankle and foot; L97.313 Non-pressure chronic ulcer of right ankle with necrosis of muscle; L97.412 Non-pressure chronic ulcer of right heel and midfoot with fat layer exposed
CPT/HCPCS: 93923

== ENCOUNTER → 2020-05-25 | Outpatient (CLI) | payer OTHER ==
--- NOTE | 2020-05-25 09:53 | US ---
EXAMINATION TYPE: US liver DATE OF EXAM: 05/25/2020 COMPARISON: US liver December 09, 2019, CT December 10, 2017 CLINICAL HISTORY: K74.60 Unspecified cirrhosis of liver. Takes multiple medications for diabetes, hi gh cholesterol, inhalers, aspirin; gallbladder removed; HT 5'9", WT 330lbs. EXAM MEASUREMENTS: Liver Length: 19.2 cm Gallbladder Wall: surgically removed CBD: 1.1 cm Right Kidney: 13.2 x 5.7 x 4.6 cm Pancreas: Visualized portion slightly heterogeneous Liver: lobular borders; attenuated posteriorly and enlarged liver; hepatic vein flow is noted to IVC in middle and right hepatic veins; PW Doppler and color flow in hepatic artery is to liver; MPV PW a nd color flow is to liver Gallbladder: surgically removed Evidence for sonographic Hernandez's sign: no CBD: Minimally prominent 1post cholecystectomy Right Kidney: No hydronephrosis or masses seen Visualized liver is slightly heterogeneous in appearance. Liver size remains satisfactory. Lobulated contour to liver seen better on recent CT. No surrounding ascites. Documentation of hepatopedal phasi c flow in the hepatic artery and hepatofugal flow in the right and middle hepatic veins draining into IVC. Satisfactory monophasic hepatopedal flow main portal vein at the bill hepatis. No concerning m ass or ductal dilatation seen on images saved. No right-sided hydronephrosis. IMPRESSION: Cirrhotic liver redemonstrated. No new ascites. Increased prominence perhaps new minimal dilatation of the extrahepatic bile ducts without new intrahepatic biliary dilatation.
== END | disposition home or self-care (01) ==
LOC: RADUSWWP 08:56
PROVIDERS: ATTEND Internal Medicine Gastroenterology
DX: K74.60 Unspecified cirrhosis of liver (principal)
CPT/HCPCS: 76705

== ENCOUNTER 2020-06-11 05:55 | Day surgery (SDC) | payer OTHER ==
[2020-05-31 09:35] VITALS: BMI 50.1
[~2020-06-11 05:55] MED LIST: LIDOCAINE 1% (10MG/ML) FOR IV START INTRADERMA PRN
[2020-06-11 06:52] VITALS: TEMP 98.4
[2020-06-11] MEDS: LACTATED RINGERS 1,000 ML IV SCH ×2 (07:05→07:07)
[2020-06-11] MEDS ORDERED: LIDOCAINE 1% INJ 10MG/ML (20 ML MDV) ONE (07:07)
[2020-06-11] MEDS ORDERED: PROPOFOL 10 MG/ML 20 ML VIAL IV ONE (07:07)
[2020-06-11 07:09] LABS: Glucose,Whole Blood 243 mg/dL (75-99)
--- NOTE | 2020-06-11 07:16 | P.PCN ---
Date of Procedure: 06/11/20 Procedure(s) Performed: BRIEF HISTORY: Patient is a 64-year-old, pleasant, white female scheduled for an upper endoscopy as a part of screening for esophageal varices. Patient has history of liver cirrhosis diagnosed 2 years ago which is well compensated.. PROCEDURE PERFORMED: Esophagogastroduodenoscopy. PREOPERATIVE DIAGNOSIS: Cirrhosis of the liver/screening for esophageal varices IV sedation per anesthesia. PROCEDURE: After informed consent was obtained, the patient was brought into the endoscopy unit. IV sedation was administered by Anesthesia under continuous monitoring. Initially the Olympus GIF-140 video endoscope was inserted into the mouth. Esophagus intubated without any difficulty. It was gradually advanced into the stomach and duodenum and carefully examined. The bulb and the second part of the duodenum appeared normal. The scope at this time was withdrawn to the stomach, adequately insufflated with air, and upon careful examination, mucosa of the antrum, had patchy areas of erythema. The body, cardia and the fundus appeared normal. The scope was then withdrawn into the esophagus. The GE junction was located at 39 cm from the incisors. The esophagus appeared normal. There were no erosions or ulcerations seen and the patient tolerated the procedure well. IMPRESSION: 1.. No evidence of gastric or esophageal varices 2. Minimal gastritis. RECOMMENDATIONS: The findings of this examination were discussed with the patient as well as a family. She was advised to have a repeat upper endoscopy in 2-3 years to screen for esophageal varices.
[2020-06-11] MEDS ORDERED: INSULIN ASPART (NovoLOG) 100 UNIT/ML VIAL SQ ONE (07:47)
[2020-06-11 07:55] VITALS: BP 133/61; PULSE 78; RESP 16
== END 2020-06-11 08:18 | disposition home or self-care (01) ==
LOC: ORWHC2ENDO 05:55
PROVIDERS: ATTEND Internal Medicine Gastroenterology
DX: Z13.810 Encounter for screening for upper gastrointestinal disorder (principal); K74.60 Unspecified cirrhosis of liver; K29.70 Gastritis, unspecified, without bleeding; E11.9 Type 2 diabetes mellitus without complications; E78.5 Hyperlipidemia, unspecified; J44.9 Chronic obstructive pulmonary disease, unspecified; G47.33 Obstructive sleep apnea (adult) (pediatric); E07.9 Disorder of thyroid, unspecified; Z88.0 Allergy status to penicillin; Z79.899 Other long term (current) drug therapy; Z79.4 Long term (current) use of insulin; Z79.890 Hormone replacement therapy; Z88.1 Allergy status to other antibiotic agents; Z85.41 Personal history of malignant neoplasm of cervix uteri
CPT/HCPCS: 43235; J2001; J2704